=== PATIENT | male | born 1940 | race Caucasian/White ===

== ENCOUNTER 2020-03-01 06:47 | Outpatient (REF) | payer MEDICARE, SELFPAY | END 2020-03-01 06:48 | disposition home or self-care (01) | LOC: HO.LAB 06:47 | PROVIDERS: PCP Internal Medicine; Visit Provider Internal Medicine | DX: Z20.828 Contact with and (suspected) exposure to other viral communicable diseases (principal) | CPT/HCPCS: 36415; 87635 ==

== ENCOUNTER 2021-05-27 10:07 | Outpatient (REF) | payer MEDICARE, SELFPAY ==
[2021-05-27 10:09] LABS: MANUAL DIFF FLAG NO
[2021-05-27 10:38] LABS: Basophils Percent Auto 0.5 % (0-2); Eosinophils Absolute Auto 0.2 X10*3/uL (0.0-0.4); Eosinophils Percent Auto 2.7 % (0-4); Hematocrit 40.4 % (42.0-52.0); Hemoglobin 13.3 g/dl (14.0-18.0); Imm Gran Abs Auto 0.05 X10*3/uL (0.00-0.03); Imm Gran Pct Auto 0.6 % (0.0-0.4); Lymphocytes Absolute Auto 1.9 X10*3/uL (1.2-4.9); Lymphocytes Percent Auto 23.9 % (20-40); Mean Corpuscular HGB Conc 32.9 g/dl (31.0-36.0); Mean Corpuscular Hemoglobin 30.8 pg (27.0-33.0); Mean Corpuscular Volume 93.5 fL (80.0-98.0); Mean Platelet Volume 11.3 fL (9.4-12.4); Monocytes Absolute Auto 0.5 X10*3/uL (0.1-1.2); Monocytes Percent Auto 6.8 % (2-11); Neutrophils Absolute Auto 5.1 x10*3/uL (2.0-8.3); Neutrophils Percent Auto 65.5 % (45-73); Platelet Count 223 X10*3/uL (160-400); Red Blood Count 4.32 X10*6/uL (4.60-5.80); Red Cell Distribution Width 12.8 % (11.0-16.0); White Blood Count 7.8 X10*3/uL (4.8-10.8)
[2021-05-27 10:50] LABS: Alanine Aminotransferase 68 U/L (0-40); Albumin Level 3.7 g/dL (3.5-5.0); Alkaline Phosphatase 91 U/L (39-117); Anion Gap 9 (12-20); Aspartate Amino Transferase 60 U/L (5-37); Blood Urea Nitrogen 14 mg/dL (9-16); Calcium 8.8 mg/dL (8.4-10.2); Carbon Dioxide 28 mmol/L (22-29); Chloride 105 mmol/L (96-108); Cholesterol 134 mg/dL; Estimated Glomerular Filt Rate > 60; Glucose Fasting 202 mg/dL (60-99); HDL Cholesterol 26 mg/dL; LDL Cholesterol Calculated 63 mg/dl; Potassium 4.2 mmol/L (3.3-5.1); Sodium 138 mmol/L (135-145); Total Protein 6.3 g/dL (6.5-8.0); Triglycerides 228 mg/dL
[2021-05-27 10:51] LABS: Estimated Average Glucose 249 mg/dL; Hemoglobin A1c % 10.3 %
[2021-05-27 10:59] LABS: Appearance Urine CLEAR; Color Urine YELLOW; Glucose Urine UA NEG (NEG); Leukocyte Esterase Urine NEG (NEG); Nitrite Urine NEG (NEG); Specific Gravity - Urine >= 1.030 (1.005-1.025); Urine Blood NEG (NEG); Urine Ketones NEG (NEG); Urine Protein NEG (NEG-TRACE)
[2021-05-27 11:00] LABS: Reflex LDLD? No
[2021-05-27 11:09] LABS: PSA,Total (Free>4and<10) 1.18 ng/mL (0.00-4.00)
[2021-05-27 11:29] LABS: Creatinine Urine 150.44 mg/dL; Microalbum/Creatinine Ratio Ur 38.5 ug/mg cr
== END 2021-05-27 10:08 | disposition home or self-care (01) ==
LOC: HO.LNP 10:07
PROVIDERS: Visit Provider Internal Medicine
DX: Z00.00 Encounter for general adult medical examination without abnormal findings (principal); Z12.5 Encounter for screening for malignant neoplasm of prostate; R74.8 Abnormal levels of other serum enzymes; I10 Essential (primary) hypertension; E11.9 Type 2 diabetes mellitus without complications; E78.6 Lipoprotein deficiency; E78.00 Pure hypercholesterolemia, unspecified
CPT/HCPCS: 80053; 80061; 81003; 82043; 83036; 84153; 85025

== ENCOUNTER 2021-11-28 11:15 | Outpatient (REF) | payer MEDICARE, SELFPAY ==
[2021-11-28 11:34] LABS: Estimated Average Glucose 217 mg/dL; Hemoglobin A1c % 9.2 %
[2021-11-28 11:41] LABS: Alanine Aminotransferase 46 U/L (0-40); Albumin Level 3.8 g/dL (3.5-5.0); Alkaline Phosphatase 86 U/L (39-117); Aspartate Amino Transferase 48 U/L (5-37); Bilirubin Direct 0.5 mg/dL (0.0-0.5); Bilirubin Total 1.5 mg/dL (0.0-1.0); Cholesterol 122 mg/dL; HDL Cholesterol 27 mg/dL; LDL Cholesterol Calculated 37 mg/dl; Total Protein 6.3 g/dL (6.5-8.0); Triglycerides 292 mg/dL
[2021-11-28 11:53] LABS: Reflex LDLD? No
== END 2021-11-28 11:16 | disposition home or self-care (01) ==
LOC: HO.LNP 11:15
PROVIDERS: Visit Provider Internal Medicine
DX: E11.9 Type 2 diabetes mellitus without complications (principal); E78.00 Pure hypercholesterolemia, unspecified
CPT/HCPCS: 80061; 80076; 83036

== ENCOUNTER 2021-12-24 11:30 | Outpatient (REF) | payer MEDICARE, SELFPAY ==
[2021-12-24 12:06] LABS: Appearance Urine CLEAR; Color Urine YELLOW; Glucose Urine UA NEG (NEG); Leukocyte Esterase Urine NEG (NEG); Nitrite Urine NEG (NEG); PH 5.5 (5.0-8.0); Specific Gravity - Urine >= 1.030 (1.005-1.025); Urine Blood TRACE (NEG); Urine Ketones NEG (NEG); Urine Protein NEG (NEG-TRACE)
[2021-12-24 12:08] LABS: Creatinine Urine 153.84 mg/dL; Microalbum/Creatinine Ratio Ur 43.5 ug/mg cr
[2021-12-24 12:38] LABS: RBC Urine 0-2 /HPF (0); Squamous Epithelial Cell Urine TRACE /LPF; WBC Urine 0-2 /HPF (0-4)
== END 2021-12-24 11:31 | disposition home or self-care (01) ==
LOC: HO.LNP 11:30
PROVIDERS: Visit Provider Internal Medicine
DX: E11.9 Type 2 diabetes mellitus without complications (principal)
CPT/HCPCS: 81001; 81003; 82043

== ENCOUNTER 2022-05-23 12:09 | Outpatient (REF) | payer MEDICARE, SELFPAY ==
[2022-05-23 12:14] LABS: MANUAL DIFF FLAG NO
[2022-05-23 12:30] LABS: Basophils Percent Auto 0.4 % (0-2); Eosinophils Absolute Auto 0.3 X10*3/uL (0.0-0.4); Eosinophils Percent Auto 2.4 % (0-4); Hematocrit 40.5 % (42.0-52.0); Hemoglobin 13.2 g/dl (14.0-18.0); Imm Gran Abs Auto 0.12 X10*3/uL (0.00-0.03); Imm Gran Pct Auto 1.1 % (0.0-0.4); Lymphocytes Absolute Auto 2.2 X10*3/uL (1.2-4.9); Lymphocytes Percent Auto 20.6 % (20-40); Mean Corpuscular HGB Conc 32.6 g/dl (31.0-36.0); Mean Corpuscular Hemoglobin 30.8 pg (27.0-33.0); Mean Corpuscular Volume 94.4 fL (80.0-98.0); Mean Platelet Volume 10.6 fL (9.4-12.4); Monocytes Absolute Auto 0.7 X10*3/uL (0.1-1.2); Monocytes Percent Auto 6.6 % (2-11); Neutrophils Absolute Auto 7.3 x10*3/uL (2.0-8.3); Neutrophils Percent Auto 68.9 % (45-73); Platelet Count 321 X10*3/uL (160-400); Red Blood Count 4.29 X10*6/uL (4.60-5.80); Red Cell Distribution Width 12.7 % (11.0-16.0); White Blood Count 10.6 X10*3/uL (4.8-10.8)
[2022-05-23 12:34] LABS: Appearance Urine Clear; Color Urine Yellow; Glucose Urine UA Negative (Negative); Leukocyte Esterase Urine Trace (Negative); Nitrite Urine Negative (Negative); Specific Gravity - Urine 1.025 (1.005-1.025); UMIC TRIGGER UA YES; Urine Blood Small (1+) (Negative); Urine Ketones Negative (Negative); Urine Protein 30 (1+) mg/dL (Neg-Trace)
[2022-05-23 12:42] LABS: Estimated Average Glucose 206 mg/dL; Hemoglobin A1c % 8.8 %
[2022-05-23 12:45] LABS: Bacteria Urine None Seen (None Seen); Hyaline Casts Urine 0-2 /LPF (0-2); RBC Urine 0-2 /HPF (0-2); WBC Urine 0-5 /HPF (0-5)
[2022-05-23 13:05] LABS: Alanine Aminotransferase 93 U/L (0-40); Albumin Level 3.7 g/dL (3.5-5.0); Alkaline Phosphatase 121 U/L (39-117); Anion Gap 14 (12-20); Aspartate Amino Transferase 71 U/L (5-37); Bilirubin Total 0.8 mg/dL (0.0-1.0); Blood Urea Nitrogen 12 mg/dL (9-16); Carbon Dioxide 26 mmol/L (22-29); Chloride 103 mmol/L (96-108); Estimated Glomerular Filt Rate > 60; Glucose Random 143 mg/dL (60-115); PSA,Total (Free>4and<10) 1.89 ng/mL (0.00-4.00); Potassium 3.9 mmol/L (3.3-5.1); Sodium 139 mmol/L (135-145); Total Protein 6.6 g/dL (6.5-8.0)
[2022-05-23 13:32] LABS: Microalbum/Creatinine Ratio Ur 70.9 ug/mg cr
== END 2022-05-23 12:10 | disposition home or self-care (01) ==
LOC: HO.LNP 12:09
PROVIDERS: Visit Provider Internal Medicine
DX: Z00.00 Encounter for general adult medical examination without abnormal findings (principal); Z12.5 Encounter for screening for malignant neoplasm of prostate; E11.9 Type 2 diabetes mellitus without complications; I10 Essential (primary) hypertension; E78.6 Lipoprotein deficiency; N40.0 Benign prostatic hyperplasia without lower urinary tract symptoms
CPT/HCPCS: 80053; 81001; 82043; 83036; 84153; 85025

== ENCOUNTER 2022-06-25 07:12 | Outpatient (REF) | payer MEDICARE, OTHER, SELFPAY ==
--- NOTE | ~2022-06-25 | US_ITS ---
EXAMINATION: US ABDOMEN COMPLETE CLINICAL INFORMATION: Hepatomegaly. COMPARISON: Ultrasound retroperitoneal limited (renal only) 08/30/2019 and 09/14/2018. MR abdomen without and with contrast 03/18/2017. TECHNIQUE: Real-time imaging of the abdominal viscera. FINDINGS: PANCREAS: Diffuse increased echogenicity of the pancreas. ABDOMINAL AORTA: Atherosclerotic calcifications of the aorta. INFERIOR VENA CAVA: Visualized portions are normal. LIVER: Liver is enlarged measuring 18.0 cm The liver contour is normal. Diffuse increased echogenicity of the liver parenchyma. No focal hepatic lesion. There is no intrahepatic biliary duct dilatation seen. GALLBLADDER: Focal wall edema measuring 0.3 cm, of unclear significance. The gallbladder is physiologically distended without evidence of stones, sludge, polyps, wall thickening or pericholecystic fluid. COMMON BILE DUCT: Normal in caliber measuring 0.5 cm in diameter. RIGHT KIDNEY: Benign appearing cyst measuring 0.8 cm. Small volume perinephric fluid. No hydronephrosis or renal calculi. The kidney measures 12.1 cm in maximum dimension. LEFT KIDNEY: Small volume perinephric fluid. Benign appearing 6 mm cyst. No hydronephrosis or renal calculi. The kidney measures 11.6 cm in maximum dimension. SPLEEN: Spleen is enlarged. The spleen measures 14.2 cm in maximum dimension. FREE FLUID: None. US/US abdomen complete IMPRESSION: 1. Hepatosplenomegaly. Diffuse increased echogenicity of the liver parenchyma likely reflects hepatic steatosis. 2. Focal gallbladder wall edema measuring 0.3 cm, of unclear significance. 3. Small volume bilateral perinephric fluid.
== END 2022-06-25 07:13 | disposition home or self-care (01) ==
LOC: HO.US 07:12
PROVIDERS: PCP Internal Medicine; Visit Provider Internal Medicine
DX: R16.0 Hepatomegaly, not elsewhere classified (principal)
CPT/HCPCS: 76700

== ENCOUNTER 2022-07-03 10:28 | Outpatient (REF) | payer MEDICARE, SELFPAY ==
[2022-07-03 10:53] LABS: Appearance Urine Clear; Color Urine Dark Yellow; Glucose Urine UA 100 mg/dL (Negative); Leukocyte Esterase Urine Trace (Negative); Nitrite Urine Negative (Negative); PH 5.5 (5.0-9.0); Specific Gravity - Urine >= 1.030 (1.005-1.025); UMIC TRIGGER UACC YES; Urine Blood Negative (Negative); Urine Ketones Negative (Negative); Urine Protein 30 (1+) mg/dL (Neg-Trace)
[2022-07-03 11:03] LABS: Bacteria Urine None Seen (None Seen); Hyaline Casts Urine 0-2 /LPF (0-2); RBC Urine 0-2 /HPF (0-2); Squamous Epithelial Cell Urine 0-2 /HPF (0-2); WBC Urine 0-5 /HPF (0-5)
== END 2022-07-03 10:29 | disposition home or self-care (01) ==
LOC: HO.LNP 10:28
PROVIDERS: Visit Provider Internal Medicine
DX: R31.9 Hematuria, unspecified (principal)
CPT/HCPCS: 81001

== ENCOUNTER 2022-09-04 10:59 | Outpatient (REF) | payer MEDICARE, SELFPAY ==
[2022-09-04 13:08] LABS: Estimated Average Glucose 203 mg/dL; Hemoglobin A1c % 8.7 %
[2022-09-04 13:18] LABS: Alanine Aminotransferase 38 U/L (0-40); Albumin Level 3.9 g/dL (3.5-5.0); Alkaline Phosphatase 81 U/L (39-117); Aspartate Amino Transferase 40 U/L (5-37); Bilirubin Direct 0.7 mg/dL (0.0-0.5); Bilirubin Total 2.9 mg/dL (0.0-1.0); Cholesterol 120 mg/dL; Glucose Fasting 176 mg/dL (60-99); HDL Cholesterol 28 mg/dL; LDL Cholesterol Calculated 51 mg/dl; Total Protein 6.3 g/dL (6.5-8.0); Triglycerides 206 mg/dL
[2022-09-04 13:33] LABS: Reflex LDLD? No
== END 2022-09-04 11:00 | disposition home or self-care (01) ==
LOC: HO.LNP 10:59
PROVIDERS: Visit Provider Internal Medicine
DX: E11.9 Type 2 diabetes mellitus without complications (principal); E78.00 Pure hypercholesterolemia, unspecified
CPT/HCPCS: 80061; 80076; 82947; 83036

== ENCOUNTER 2022-11-07 16:07 | Outpatient (REF) | payer MEDICARE, SELFPAY ==
[2022-11-07 16:33] LABS: Appearance Urine Clear; Color Urine Dark Yellow; Glucose Urine UA 500 mg/dL (Negative); Leukocyte Esterase Urine Negative (Negative); Nitrite Urine Negative (Negative); PH 5.5 (5.0-9.0); Specific Gravity - Urine 1.025 (1.005-1.025); UMIC TRIGGER UACC YES; Urine Blood Negative (Negative); Urine Ketones Trace mg/dL (Negative); Urine Protein 30 (1+) mg/dL (Neg-Trace)
[2022-11-07 16:35] LABS: Bacteria Urine None Seen (None Seen); Hyaline Casts Urine 0-2 /LPF (0-2); RBC Urine 0-2 /HPF (0-2); Squamous Epithelial Cell Urine 0-2 /HPF (0-2); WBC Urine 0-5 /HPF (0-5)
== END 2022-11-07 16:08 | disposition home or self-care (01) ==
LOC: HO.LNP 16:07
PROVIDERS: Visit Provider Internal Medicine
DX: R31.9 Hematuria, unspecified (principal)
CPT/HCPCS: 81001

== ENCOUNTER 2022-12-12 12:21 | Outpatient (REF) | payer MEDICARE, OTHER, SELFPAY ==
[2022-12-12 13:09] LABS: Blood Urea Nitrogen 17 mg/dL (9-16); Estimated Glomerular Filt Rate > 60
== END 2022-12-12 12:22 | disposition home or self-care (01) ==
LOC: HO.LNP 12:21
PROVIDERS: Visit Provider Internal Medicine
DX: I10 Essential (primary) hypertension (principal)
CPT/HCPCS: 82565; 84520

== ENCOUNTER 2022-12-17 08:57 | Outpatient (REF) | payer MEDICARE, OTHER, SELFPAY ==
--- NOTE | ~2022-12-17 | CT_ITS ---
EXAMINATION: CT ABDOMEN AND PELVIS WITHOUT AND WITH CONTRAST CLINICAL INFORMATION: Hematuria. COMPARISON: None available. TECHNIQUE: Multidetector volumetric imaging was performed of the abdomen and pelvis before and after the IV administration of 85 mL of Omnipaque 300 intravenous contrast. Sagittal and coronal reformatted images were obtained on the technologist's workstation. This CT examination was performed using dose optimization techniques as appropriate, variously including the following: *Automated exposure control *Adjustment of mA and/or kV according to patient size (this includes techniques or standardized protocols for targeted exams where dose is matched to indication/reason for exam; i.e. extremities or head) *Use of iterative reconstruction technique DLP: 1305 mGy-cm FINDINGS: LUNG BASES: Heart size is normal. Plate-like atelectasis seen in the left lung base. LIVER, GALLBLADDER, AND BILIARY TREE: The liver is normal in size, shape, and attenuation. Punctate calcifications seen in the right hepatic lobe. No focal hepatic lesion or biliary ductal dilatation is present. The gallbladder is unremarkable with no evidence of radiopaque gallstones, gallbladder wall thickening, or obvious pericholecystic inflammatory changes. PANCREAS: Unremarkable. SPLEEN: There are punctate calcifications in the spleen. Spleen is otherwise normal size and density. ADRENAL GLANDS: Unremarkable. KIDNEYS AND URETERS: The kidneys are normal in size, shape, and attenuation. No hydronephrosis, hydroureter, or calculi seen. There is mild perinephric stranding. Partially opacified bilateral kidney pelvises and segments of both ureters are normal caliber. No intraluminal filling defects see BLADDER: Partially opacified urinary bladder from excreted urine contrast appears unremarkable. No radiopaque bladder calculi or bladder wall thickening seen. GASTROINTESTINAL TRACT: There is scattered stool and gas seen throughout the colon without distention. The small bowel loops and appendix are normal caliber. The stomach is nondistended. No inflammatory process or free fluid seen in abdomen or pelvis. ABDOMINAL WALL: No significant hernia is appreciated. LYMPH NODES: Normal. VASCULAR: Unremarkable. PELVIC VISCERA: There is moderate prostate enlargement with central gland calcification. There is elevation of base of bladder. No free fluid or pelvic or inguinal lymph nodes seen. OSSEOUS STRUCTURES: No aggressive lytic or sclerotic process seen. CT/CT abdomen pelvis wo/w IV con IMPRESSION: No radiopaque urolith, enhancing renal mass or hydroureteronephrosis seen. Bilateral mild perinephric stranding. Moderate prostate enlargement extending into the base of bladder. No bladder wall thickening seen. Fleischner guidelines were followed.
[2022-12-17] MEDS: iohexoL 350 MG/ML 100 ML INFUS..BTL IV (10:03)
== END 2022-12-17 08:58 | disposition home or self-care (01) ==
LOC: HO.CT 08:57
PROVIDERS: PCP Internal Medicine; Visit Provider Internal Medicine
DX: R31.9 Hematuria, unspecified (principal)
CPT/HCPCS: 74178; Q9967

== ENCOUNTER 2023-01-02 10:36 | Outpatient (REF) | payer MEDICARE, OTHER, SELFPAY ==
--- NOTE | ~2023-01-02 | US_ITS ---
EXAMINATION: US ABDOMEN LIMITED CLINICAL INFORMATION: Abnormal gallbladder diagnostic imaging. COMPARISON: CT abdomen and pelvis without with contrast dated 12/17/2022. Ultrasound abdomen complete dated 06/25/2022. Renals only ultrasound dated 08/30/2019. MR abdomen without and with contrast dated 03/18/2017. KUB dated 07/22/2011 and 06/03/2010. TECHNIQUE: Real-time imaging of the right upper quadrant abdominal viscera. FINDINGS: PANCREAS: Normal. LIVER: There is increased liver echogenicity. The liver is normal in size. The liver contour is normal. There is an echogenic linear area likely calcified vessel in the right hepatic lobe. There is no intrahepatic biliary duct dilatation seen. GALLBLADDER: Gallbladder wall thickness measures 0.3-0.5 cm. There is anechoic fluid within the gallbladder wall with mild wall thickening/edema. The gallbladder is physiologically distended without evidence of stones, sludge, polyps, or pericholecystic fluid. COMMON BILE DUCT: Normal in caliber measuring 0.4 cm in diameter. RIGHT KIDNEY: There is a small punctate echogenic stone measuring 0.1 x 0.08 x 0.2 cm upper pole right kidney. No additional stones seen. There is minimal perinephric fluid collection. Echogenic calcification is visualized in the cortex. No hydronephrosis seen. The kidney measures 12.3 cm in maximum dimension. FREE FLUID: None. US/US abdomen limited IMPRESSION: 1. Echogenic linear area in the right hepatic lobe likely calcified vessel. No focal lesion seen. 2. There is mild gallbladder wall thickening with fluid within the gallbladder wall. No echogenic stones or tenderness in the right upper quadrant. 3. There is a punctate echogenic stone in the upper pole right kidney and minimal perinephric fluid collection. No hydronephrosis seen.
== END 2023-01-02 10:37 | disposition home or self-care (01) ==
LOC: HO.US 10:36
PROVIDERS: PCP Internal Medicine; Visit Provider Internal Medicine
DX: R93.2 Abnormal findings on diagnostic imaging of liver and biliary tract (principal)
CPT/HCPCS: 76705

== ENCOUNTER 2023-01-12 08:15 | Outpatient (AMB) | payer MEDICARE, OTHER, SELFPAY ==
--- NOTE | 2023-01-12 03:22 | A.OFFVIS_ITS ---
Intake Intake Visit Reasons: Hematuria (CT 12/17) Intake Note: Patient presents today to established treatment for Hematuria on CT 12/17: Meds- None Allergies to Antibiotic- No Known Allergies Blood Thinner- None Casing Wringer Operator Required: No Accompanied by: Self / Same As Patient Allergies No Known Allergies [No Known Allergies*] Allergy (Unverified 01/12/23 08:19) Medication List - Last Reconciled 01/12/23 by Thomas Araujo MD aspirin (Adult Low Dose Aspirin) 81 mg PO DAILY atorvastatin 10 mg PO DAILY finasteride (Proscar) 5 mg PO DAILY 90 days fluticasone propionate 50 mcg/actuation 1 spray intranasal BID irbesartan-hydrochlorothiazide 150-12.5 mg 1 tab PO DAILY metformin 1,000 mg PO BID metoprolol succinate ER 50 mg PO DAILY montelukast 10 mg PO DAILY sitagliptin phosphate (Januvia) 100 mg PO DAILY HPI HPI Comments History of Present Illness Details Deacon is an 82-year-old male who presents today to the office to establish as a new patient for an evaluation of hematuria. 01/12/2023-- He was sent by his PCP for evaluation of hematuria. He was seen on 11/07/2022 with the complaints of gross hematuria after riding a car for several hours. He was sent for a CT scan. I reviewed the results from 12/17/2022 revealed no renal mass, no renal stone, no hydronephrosis, moderate prostate enlargement with extended into the bladder base. I reviewed the results from 01/12/2023 revealed punctuate echogenic stone in the right upper pole of the kidney.? Review of labs from 04/26/2023 revealed PSA - 1.08, and on 05/27 PSA --1.18, 05/23/22, PSA was 1.89. He had 2 to 3 episodes hematuria since he had the CT scan and the ultrasound. The patient states that he was seen by Dr. Fiore many years ago. He had prostate issues at that time. He was placed on a medication for the prostate which he does not recall the name. He eventually went into urinary retention requiring a Karimi catheter. He eventually had a procedure done for laser to resect some of the prostate tissue, and since then, he has not had any trouble urinating. Patient states that he has casual cigarette use started at the age of 56, a couple cigarettes socially and ?does not inhale?. We discussed the importance of abstaining from cigarette smoking as it could increase the risks of urinary tract cancers. Evaluation today UA-- leukocytes: negative; blood: negative. Plan: Prescribed Finasteride 5 mg. Urine for cytology was ordered. Follow up for office cystoscopy. [facility] Surgical History No pertinent past surgical history Family History Mother No problems noted. Father No problems noted. Social History Alcohol intake: current Alcohol intake frequency: holidays/special occasions only Patient Tobacco Use Status: Never used Tobacco Review of Systems Const All systems reviewed & are unremarkable except as noted in HPI and below Reports no additional complaints Eyes Reports no additional complaints ENT Reports no additional complaints Card Denies dyspnea Resp Denies cough and Denies dyspnea GI Reports no additional complaints Musc Reports no additional complaints Skin/Breast Denies rash and Denies unusual bruising Neuro Reports no additional complaints Psych Reports no additional complaints Endo Reports no additional complaints Sharath/Lymph Reports no additional complaints Aller/Immun Reports no additional complaints Physical Exam Const General: healthy appearing, no acute distress and well developed Orientation/consciousness: patient oriented x3 HEENT Head: Yes normocephalic and Yes atraumatic Eyes Conjunctivae: conjunctivae normal Neck Neck: Yes normal visual inspection Chest Chest palpation & inspection: normal inspection of the chest Resp Effort & Inspection: normal respiratory effort Cardio Rate: regular rate GI Inspection: Yes normal to inspection Palpation (GI): Soft to palpation Skin General skin exam: no rashes or lesions noted Neuro General: patient oriented x3 Extrem General: No pedal edema Psych Appearance: grossly normal Affect: normal affect Results AMB Urinalysis, Automated UA Leukoctes 0 Brissa/uL Last Edit by Naz Coy A on 01/12/23 08:29 UA Nitrite Negative Last Edit by Naz Coy [facility] on 01/12/23 08:29 UA Urobilinogen 0.2 mg/dL Last Edit by Naz Coy A on 01/12/23 08:2 9 UA Protein 30 mg/dL Last Edit by Naz Coy [facility] on 01/12/23 08:29 1+ Naz Coy 01/12/23 08:29 UA pH 6.0 Last Edit by Naz Coy [facility] on 01/12/23 08:29 UA Blood 0 Cezar/uL Last Edit by Naz Coy [facility] on 01/12/23 08:29 UA Specific Mckinney 1.030 Last Edit by Naz Coy [facility] on 01/12/23 08: 29 UA Ketone Negative Last Edit by Naz Coy [facility] on 01/12/23 08:29 UA Bilirubin 0 mg/dL Last Edit by Naz Coy [facility] on 01/12/23 08:29 UA Glucose 0 mg/dL Last Edit by Naz Coy [facility] on 01/12/23 08:29 Results Reviewed Results Reviewed: Laboratory Last Values Urine pH (Auto) 6.0 01/12/23 08:26 Specific Mckinney (Auto) 1.030 01/12/23 08:26 Urine Protein (Auto) 30 mg/dL 01/12/23 08:26 Glucose (UA)(Auto) 0 mg/dL 01/12/23 08:26 Urine Ketones (Auto) Negative 01/12/23 08:26 Urine Blood (Auto) 0 Cezar/uL 01/12/23 08:26 Urine Nitrite (Auto) Negative 01/12/23 08:26 Urine Bilirubin (Auto) 0 mg/dL 01/12/23 08:26 Urine Urobilinogen (Auto) 0.2 mg/dL 01/12/23 08:26 Leukocyte Esterase (Auto) 0 Brissa/uL 01/12/23 08:26 Date of Service: 12/17/22 EXAMINATION: CT ABDOMEN AND PELVIS WITHOUT AND WITH CONTRAST? CLINICAL INFORMATION: Hematuria.? COMPARISON: None available. FINDINGS: LUNG BASES: Heart size is normal. Plate-like atelectasis seen in the left lung base.? LIVER, GALLBLADDER, AND BILIARY TREE: The liver is normal in size, shape, and attenuation. Punctate calcifications seen in the right hepatic lobe. No focal hepatic lesion or biliary ductal dilatation is present. The gallbladder is unremarkable with no evidence of radiopaque gallstones, gallbladder wall thickening, or obvious pericholecystic inflammatory changes.? PANCREAS: Unremarkable.? SPLEEN: There are punctate calcifications in the spleen. Spleen is otherwise normal size and density.? ADRENAL GLANDS: Unremarkable.? KIDNEYS AND URETERS: The kidneys are normal in size, shape, and attenuation. No hydronephrosis, hydroureter, or calculi seen. There is mild perinephric stranding. Partially opacified bilateral kidney pelvises and segments of both ureters are normal caliber. No intraluminal filling defects see BLADDER: Partially opacified urinary bladder from excreted urine contrast appears unremarkable. No radiopaque bladder calculi or bladder wall thickening seen. GASTROINTESTINAL TRACT: There is scattered stool and gas seen throughout the colon without distention. The small bowel loops and appendix are normal caliber. The stomach is nondistended. No inflammatory process or free fluid seen in abdomen or pelvis.? ABDOMINAL WALL: No significant hernia is appreciated.? LYMPH NODES: Normal. VASCULAR: Unremarkable. PELVIC VISCERA: There is moderate prostate enlargement with central gland calcification. There is elevation of base of bladder. No free fluid or pelvic or inguinal lymph nodes seen. OSSEOUS STRUCTURES: No aggressive lytic or sclerotic process seen.? IMPRESSION: No radiopaque urolith, enhancing renal mass or hydroureteronephrosis seen. Bilateral mild perinephric stranding. ? Moderate prostate enlargement extending into the base of bladder. No bladder wall thickening seen.? Date of Service: 01/02/23 EXAMINATION: US ABDOMEN LIMITED CLINICAL INFORMATION: Abnormal gallbladder diagnostic imaging. COMPARISON: CT abdomen and pelvis without with contrast dated 12/17/2022. Ultrasound abdomen complete dated 06/25/2022. Renals only ultrasound dated 08/30/2019. MR abdomen without and with contrast dated 03/18/2017. KUB dated 07/22/2011 and 06/03/2010. FINDINGS: PANCREAS: Normal. LIVER: There is increased liver echogenicity. The liver is normal in size. The liver contour is normal. There is an echogenic linear area likely calcified vessel in the right hepatic lobe. There is no intrahepatic biliary duct dilatation seen. GALLBLADDER: Gallbladder wall thickness measures 0.3-0.5 cm. There is anechoic fluid within the gallbladder wall with mild wall thickening/edema. The gallbladder is physiologically distended without evidence of stones, sludge, polyps, or pericholecystic fluid. COMMON BILE DUCT: Normal in caliber measuring 0.4 cm in diameter. RIGHT KIDNEY: There is a small punctate echogenic stone measuring 0.1 x 0.08 x 0.2 cm upper pole right kidney. No additional stones seen. There is minimal perinephric fluid collection. Echogenic calcification is visualized in the cortex. No hydronephrosis seen. The kidney measures 12.3 cm in maximum dimension. FREE FLUID: None. IMPRESSION: 1. Echogenic linear area in the right hepatic lobe likely calcified vessel. No focal lesion seen. 2. There is mild gallbladder wall thickening with fluid within the gallbladder wall. No echogenic stones or tenderness in the right upper quadrant. 3. There is a punctate echogenic stone in the upper pole right kidney and minimal perinephric fluid collection. No hydronephrosis seen. Assessment & Plan Assessment & Plan (1) Gross hematuria: Code(s): R31.0 - Gross hematuria Plan: Prescribed Finasteride 5 mg. Urine for cytology was ordered. Follow up for office cystoscopy. (2) BPH (benign prostatic hyperplasia): Code(s): N40.0 - Benign prostatic hyperplasia without lower urinary tract symptoms Orders: Orders AMB Urinalysis Automated Today Z13.9 - Encounter for screening, unspecified Medications: New finasteride (Proscar) 5 mg PO DAILY 90 days 90 tabs 3RF C61 - Malignant neoplasm of prostate Patient Instructions: The patient had an opportunity to ask questions regarding treatment plan. All questions were answered. Imaging, Laboratory studies and physical exam results were discussed and reviewed in detail. No major barriers to understanding were identified. The patient expressed understanding and agreement with the above treatment plan.? ? ? The patient is aware they should contact our office by phone for worsening of their current condition or the appearance of new symptoms. Compliance is encouraged with any medications and followup testing that is ordered.? ? ? It is a privilege to be allowed the opportunity to participate in the urologic care of your patient. If you have any questions or concerns regarding treatment for the above conditions please do not hesitate to contact me. The office te fatimah contact is [phone].? ? ? This note is constructed in part using voice recognition software. While every effort has been made to ensure accuracy body team member errors may have been included.? ? ? Yours sincerely,? ? ? Thomas Araujo MD? Coding Level of Care Code New Pt Level 4 (40789) Diagnoses Gross hematuria R31.0 BPH (benign prostatic hyperplasia) N40.0
== END 2023-01-12 08:46 | disposition home or self-care (01) ==
PROVIDERS: PCP Internal Medicine; Visit Provider Urology
DX: R31.0 Gross hematuria (principal); N40.0 Benign prostatic hyperplasia without lower urinary tract symptoms
CPT/HCPCS: 99204

== ENCOUNTER 2023-01-12 08:15 | Outpatient (REF) | payer MEDICARE, SELFPAY ==
[2023-01-12 16:28] LABS: Urine Cytology See Pathology rpt
== END 2023-01-12 08:16 | disposition home or self-care (01) ==
LOC: HO.LAB 08:15
PROVIDERS: PCP Internal Medicine; Visit Provider Urology
DX: R31.0 Gross hematuria (principal); N40.0 Benign prostatic hyperplasia without lower urinary tract symptoms
CPT/HCPCS: 88112; 99202

== ENCOUNTER 2023-02-12 09:56 | Outpatient (AMB) | payer MEDICARE, OTHER, SELFPAY ==
--- NOTE | 2023-02-12 09:58 | A.OFFVIS_ITS ---
Intake Intake Visit Reasons: 1m/cysto Intake Note: Disposible Uro-G Cystoscope Cannula: * Lot: [id number] * Exp: 10/08/2022 Allergies No Known Allergies [No Known Allergies*] Allergy (Unverified 02/12/23 10:33) Medication List - Last Reconciled 02/13/23 by Thomas Araujo MD aspirin (Adult Low Dose Aspirin) 81 mg PO DAILY atorvastatin 10 mg PO DAILY finasteride (Proscar) 5 mg PO DAILY 90 days fluticasone propionate 50 mcg/actuation 1 spray intranasal BID irbesartan-hydrochlorothiazide 150-12.5 mg 1 tab PO DAILY metformin 1,000 mg PO BID metoprolol succinate ER 50 mg PO DAILY montelukast 10 mg PO DAILY sitagliptin phosphate (Januvia) 100 mg PO DAILY HPI HPI Comments History of Present Illness Details Deacon is an 82-year-old male who presents today to the office for a follow-up. 02/12/2023? He is followed today for cystoscopy procedure. He was last seen by me on 01/12/2023 for hematuria. Prescribed Finasteride 5 mg at that time. Urine for cytology was ordered, and He denies any hematuria. He denies any urinary tract symptoms since his last visit. He is on Baby Aspirin. CoMorbidity- Nicotine dependence. I reviewed the urine cytology report results from 01/13/2023 revealed negative for high-grade urothelial carcinoma.? Cystoscopy procedure: Consent was obtained to perform cystoscopy procedure. Cystoscopy findings: Prostate tissue has shown re-growth, and there is some bleeding at the prostate area with instrumentation,and visualization of the bladder is limited. 02/12/2023: Evaluation today--UA- leukoc ytes: negative; blood: negative. Review of charts: Last visit: 01/12/2023-- I reviewed the CT scan results from 12/17/2022 revealed no renal mass, no renal stone, no hydronephrosis, moderate prostate enlargement with extended into the bladder base. I reviewed the Abdomenal results from 01/02/2023 revealed punctuate echogenic stone in the right upper pole of the kidney.? Review of labs from 04/26/2023 revealed PSA - 1.08, and on 05/27 PSA --1.18, 05/23/22, PSA was 1.89. 02/12/2023: Evaluation today?UA? leukocy clovis: negative; blood: negative. 02/12/2023: Plan: Repeat office cystoscopy in 2 months. [facility] Surgical History No pertinent past surgical history Family History Mother No problems noted. Father No problems noted. Social History Alcohol intake: current Alcohol intake frequency: holidays/special occasions only Patient Tobacco Use Status: Never used Tobacco Review of Systems Const All systems reviewed & are unremarkable except as noted in HPI and below Reports no additional complaints Eyes Reports no additional complaints ENT Reports no additional complaints Card Denies dyspnea Resp Denies cough and Denies dyspnea GI Reports no additional complaints Musc Reports no additional complaints Skin/Breast Denies rash and Denies unusual bruising Neuro Reports no additional complaints Psych Reports no additional complaints Endo Reports no additional complaints Sharath/Lymph Reports no additional complaints Aller/Immun Reports no additional complaints Office Procedures Cystoscopy Consent Discussed risk and benefit or proposed procedure with the patient. Information consent for procedure given to the patient. Discussed technical aspects, risks, benefits and alternatives in full. Addressed all of the patient's questions and concerns regarding the procedure. The patient demonstrated knowledge and understanding. They wish to proceed with this procedure. Preparation The patient was prepped in the usual manner. A produce field merchandiser was present and in the room. Genitalia was prepped with betadine solution in a sterile manner. Lidocaine Jelly 2% was placed into the urethra and 16Fr flexible Olympus cystoscope was inserted into the meatus after adequate lubrication. Procedure Time out per protocol performed. Bladder Inspection Bladder Inspection: Urethra: normal Cystoscopy findings: Prostate tissue has shown re-growth, and there is some bleeding at the prostate area with instrumentation and visualization of the bladder is limited. [id number] DISPOSABLE SCOPE URO-G FLEXIBLE SCOPE Procedure code (CPT) selection complete Office Meds lidocaine HCl 2 % mucosal jelly in applicator Performing Provider: Thomas Araujo MD [facility] Administered by: Lulu Villalobos RN on 02/12/23 10:51 Dose Route Admin Location Dispensed Lot Number Expiration Date NDC [employer] 10 mL intra-urethral 20 mL naproxen 500 mg tablet Performing Provider: Thomas Araujo MD [place] Administered by: Lulu Villalobos RN on 02/12/23 10:51 Dose Route Admin Location Dispensed Lot Number Expiration Date NDC [employer] 500 mg PO 1 tab ciprofloxacin HCl 500 mg tablet Performing Provider: Thomas Araujo MD [place] Administered by: Lulu Villalobos RN on 02/12/23 10:51 Dose Route Admin Location Dispensed Lot Number Expiration Date NDC [employer] 500 mg PO 1 tab Results AMB Urinalysis, Automated UA Leukoctes Brissa/uL Last Edit by Yvonne Stevens CMA on 02/12/23 10:42 UA Nitrite Last Edit by Yvonne Stevens CMA on 02/12/23 10:42 UA Urobilinogen 0.2 mg/dL Last Edit by Yvonne Stevens CMA on 02/12/23 10:42 UA Protein 30 mg/dL Last Edit by Yvonne Stevens CMA on 02/12/23 10:42 UA pH 5.0 Last Edit by Yvonne Stevens CMA on 02/12/23 10:42 UA Blood Cezar/uL Last Edit by Yvonne Stevens CMA on 02/12/23 10:42 UA Specific [place] 1.030 Last Edit by Yvonne Stevens CMA on 02/12/23 10:42 UA Ketone Positive Last Edit by Yvonne Stevens CMA on 02/12/23 10:42 UA Bilirubin 1 mg/dL Last Edit by Yvonne Stevens CMA on 02/12/23 10:42 UA Glucose mg/dL Last Edit by Yvonne Stevens CMA on 02/12/23 10:42 Results Reviewed Results Reviewed: Laboratory Last Values Urine pH (Auto) 5.0 02/12/23 10:41 Specific [place] (Auto) 1.030 02/12/23 10:41 Urine Protein (Auto) 30 mg/dL 02/12/23 10:41 Urine Ketones (Auto) Positive 02/12/23 10:41 Urine Bilirubin (Auto) 1 mg/dL 02/12/23 10:41 Urine Urobilinogen (Auto) 0.2 mg/dL 02/12/23 10:41 Diagnosis Urine: Negative for high-grade urothelial carcinoma. COMMENT: Examination of a monolayer preparation slide shows benign urothelial cells, benign squamous cells, and occasional inflammatory cells and red blood cells. Clinical History Gross hematuria Material Received Urine Gross Description 70cc cloudy yellow fluid Assessment & Plan Assessment & Plan (1) Gross hematuria: Code(s): R31.0 - Gross hematuria (2) BPH (benign prostatic hyperplasia): Code(s): N40.0 - Benign prostatic hyperplasia without lower urinary tract symptoms Plan Repeat office cystoscopy in 2 months. Orders: Orders AMB Cystoscopy 02/12/23 N40.0 - Benign prostatic hyperplasia without lower uri nary tract symptoms AMB Urinalysis Automated 02/12/23 R31.0 - Gross hematuria Medications: Refilled finasteride (Proscar) 5 mg PO DAILY 90 tabs 3RF 90 days C61 - Malignant neoplasm of prostate finasteride (Proscar) 5 mg PO DAILY 90 tabs 3RF 90 days C61 - Malignant neoplasm of prostate Patient Instructions: The patient had an opportunity to ask questions regarding treatment plan. All questions were answered. Imaging, Laboratory studies and physical exam results were discussed and reviewed in detail. No major barriers to understanding were identified. The patient expressed understanding and agreement with the above treatment plan.? ? ? The patient is aware they should contact our office by phone for worsening of their current condition or the appearance of new symptoms. Compliance is encouraged with any medications and followup testing that is ordered.? ? ? It is a privilege to be allowed the opportunity to participate in the urologic care of your patient. If you have any questions or concerns regarding treatment for the above conditions please do not hesitate to contact me. The office telephone contact is [phone].? ? ? This note is constructed in part using voice recognition software. While every effort has been made to ensure accuracy speech language pathology assistant errors may have been included.? ? ? Yours sincerely,? ? ? Thomas Araujo MD? ? Coding Level of Care Code Procedure Only Diagnoses Gross hematuria R31.0 BPH (benign prostatic hyperplasia) N40.0 CPT Codes Cystoscopy - CPT: 61384-[id number] ([id number])
== END 2023-02-12 11:25 | disposition home or self-care (01) ==
PROVIDERS: PCP Internal Medicine; Visit Provider Urology
DX: R31.0 Gross hematuria (principal); N40.0 Benign prostatic hyperplasia without lower urinary tract symptoms
CPT/HCPCS: 52000

== ENCOUNTER → 2023-02-12 09:56 | Outpatient (BNVA) | payer MEDICARE, OTHER, SELFPAY | PROVIDERS: PCP Internal Medicine; Visit Provider Urology | DX: R31.0 Gross hematuria (principal); N40.0 Benign prostatic hyperplasia without lower urinary tract symptoms; C61 Malignant neoplasm of prostate | CPT/HCPCS: 52000; 81003 ==

== ENCOUNTER 2023-04-16 09:46 | Outpatient (AMB) | payer MEDICARE, OTHER, SELFPAY ==
--- NOTE | 2023-04-16 09:53 | A.OFFVIS_ITS ---
Intake Intake Visit Reasons: 2 Month cysto Intake Note: Patient presents today for a CYSTOSCOPY Procedure: Meds: None Allergies to Antibiotic: No Known Allergies Blood Thinner: None Urinalysis test cleared for Cysto Disposable Uro-G Cystoscope Cannula: Lot: [id number] Exp: 10/08/2024 High School Science Tutor Required: No Accompanied by: Self / Same As Patient Allergies No Known Allergies [No Known Allergies*] Allergy (Verified 04/16/23 10:13) HPI HPI Comments History of Present Illness Details Deacon is an 82-year-old male who presents today to the office for a follow-up. 04/16/2023-- He is followed today for a repeat cystoscopy procedure. He was sent by his PCP for evaluation of hematuria. He was seen on 11/07/2022 with the complaints of gross hematuria after riding a car for several hours. He was sent for a CT scan. He is on Baby Aspirin. CoMorbidity- Nicotine dependence. Status post laser procedure of the prostate many years ago by Dr. Fiore On 02/12/2023 office cystoscopy was performed, there was bleeding from prostatic urethra secondary to cytoscopy instrumentation and visualization was limited. Patient states that he will be leaving to [place] in third week of July. Evaluation today: --UA--Leukocytes: negative; blood: negative; protein: 1 +. Cystoscopy findings: Irregular growth near the bladder neck on the left side, unable to determine if it is prostatic tissue or bladder tumor. Review of chart: CTAP w/wo IV contrast-12/17/2022 revealed no renal mass, no renal stone, no hydronephrosis, moderate prostate enlargement with extended into the bladder base. Ultrasound-01/12/2023 revealed punctuate echogenic stone in the right upper pole of the kidney. ? Review of labs from 04/26/2023 revealed PSA - 1.08, and on 05/27 PSA --1.18, 05/23/22, PSA was 1.89 . Urine cytology report results from 01/13/2023 revealed negative for high-grade urothelial carcinoma. 02/12/2023: Cystoscopy findings: Prostat e tissue has shown re-growth, and there is some bleeding at the prostate area with instrumentation, and visualization of the bladder is limited. 04/16/2023: Plan: Consent form was obtai danya for the procedure. Patient needs to get medical clearance for the procedure. Cystoscopy, transurethral resection of the bladder tumor, random bladder biopsies as an outpatient was discussed to be scheduled. PFSH Surgical History Hx of cystoscopy No pertinent past surgical history Family History Mother No problems noted. Father No problems noted. Social History Alcohol intake: current Alcohol intake frequency: holidays/special occasions only Patient Tobacco Use Status: Never used Tobacco Review of Systems Const All systems reviewed & are unremarkable except as noted in HPI and below Reports no additional complaints Eyes Reports no additional complaints ENT Reports no additional complaints Card Denies dyspnea Resp Denies cough and Denies dyspnea GI Reports no additional complaints Musc Reports no additional complaints Skin/Breast Denies rash and Denies unusual bruising Neuro Reports no additional complaints Psych Reports no additional complaints Endo Reports no additional complaints Sharath/Lymph Reports no additional complaints Aller/Immun Reports no additional complaints Physical Exam Const General: healthy appearing, no acute distress and well developed Orientation/consciousness: patient oriented x3 HEENT Head: Yes normocephalic and Yes atraumatic Eyes Conjunctivae: conjunctivae normal Neck Neck: Yes normal visual inspection Chest Chest palpation & inspection: normal inspection of the chest Resp Effort & Inspection: normal respiratory effort Cardio Rate: regular rate GI Inspection: Yes normal to inspection Palpation (GI): Soft to palpation Skin General skin exam: no rashes or lesions noted Neuro General: patient oriented x3 Extrem General: No pedal edema Psych Appearance: grossly normal Affect: normal affect Office Procedures Cystoscopy Consent Discussed risk and benefit or proposed procedure with the patient. Information consent for procedure given to the patient. Discussed technical aspects, risks, benefits and alternatives in full. Addressed all of the patient's questions and concerns regarding the procedure. The patient demonstrated knowledge and understanding. They wish to proceed with this procedure. Preparation The patient was prepped in the usual manner. A croze cutter was present and in the room. Genitalia was prepped with betadine solution in a sterile manner. Lidocaine Jelly 2% was placed into the urethra and 16Fr flexible Olympus cystoscope was inserted into the meatus after adequate lubrication. Procedure Time out per protocol performed. Bladder Inspection Bladder Inspection: The bladder was inspected in its entirety with utilization retroflexion displ aying: Tumor(s): see below Trabeculation: mild/mod Mucosal Erthema: N/A Orifices: unable to visualized trigone well Urethra: normal Cystoscopy findings: Irregular growth near the bladder neck on the left side, unable to determine if it is prostatic tissue or bladder tumor. [id number] DISPOSABLE SCOPE URO-G FLEXIBLE SCOPE Procedure code (CPT) selection complete Office Meds lidocaine HCl 2 % mucosal jelly in applicator Performing Provider: Thomas Araujo MD Performing Location[place] [facility] [facility] Administered by: Lulu Bahena RN on 04/16/23 10:25 Dose Route Admin Location Dispensed Lot Number Expiration Date [facility] Document Coordinator 10 mL intra-urethral 20 mL naproxen 500 mg tablet Performing Provider: Thomas Araujo MD Performing Location: [facility] Administered by: Lulu Bahena RN on 04/16/23 10:25 Dose Route Admin Location Dispensed Lot Number Expiration Date ND Document Coordinator 500 mg PO 1 tab ciprofloxacin HCl 500 mg tablet Performing Provider: Thomas Araujo MD Performing Location: [facility] Administered by: Lulu Bahena RN on 04/16/23 10:25 Dose Route Admin Location Dispensed Lot Number Expiration Date ND Document Coordinator 500 mg PO 1 tab Results AMB Urinalysis, Automated UA Leukoctes 0 Brissa/uL Last Edit by CARLOS MANUEL Monteiro on 04/16/23 10:34 UA Nitrite Negative Last Edit by CARLOS MANUEL Monteiro on 04/16/23 10:34 UA Urobilinogen 0.2 mg/dL Last Edit by CARLOS MANUEL Monteiro on 04/16/23 10:3 4 UA Protein 30 mg/dL Last Edit by Naz Coy A on 04/16/23 10:34 1+ Naz Coy 04/16/23 10:34 UA pH 6.0 Last Edit by Naz Zbigniew, RMA on 04/16/23 10:34 UA Blood 0 Cezar/uL Last Edit by Naz Coy A on 04/16/23 10:34 UA Specific [place] 1.030 Last Edit by Naz Coy A on 04/16/23 10: 34 UA Ketone Negative Last Edit by Naz Coy A on 04/16/23 10:34 UA Bilirubin 0 mg/dL Last Edit by Naz Coy A on 04/16/23 10:34 UA Glucose 0 mg/dL Last Edit by Naz Coy A on 04/16/23 10:34 Results Reviewed Results Reviewed: Laboratory Last Values Urine pH (Auto) 6.0 04/16/23 10:14 Specific [place] (Auto) 1.030 04/16/23 10:14 Urine Protein (Auto) 30 mg/dL 04/16/23 10:14 Glucose (UA)(Auto) 0 mg/dL 04/16/23 10:14 Urine Ketones (Auto) Negative 04/16/23 10:14 Urine Blood (Auto) 0 Cezar/uL 04/16/23 10:14 Urine Nitrite (Auto) Negative 04/16/23 10:14 Urine Bilirubin (Auto) 0 mg/dL 04/16/23 10:14 Urine Urobilinogen (Auto) 0.2 mg/dL 04/16/23 10:14 Leukocyte Esterase (Auto) 0 Brissa/uL 04/16/23 10:14 Date of Service: 12/17/22 EXAMINATION: CT ABDOMEN AND PELVIS WITHOUT AND WITH CONTRAST CLINICAL INFORMATION: Hematuria. COMPARISON: None available. FINDINGS: LUNG BASES: Heart size is normal. Plate-like atelectasis seen in the left lung base. LIVER, GALLBLADDER, AND BILIARY TREE: The liver is normal in size, shape, and attenuation. Punctate calcifications seen in the right hepatic lobe. No focal hepatic lesion or biliary ductal dilatation is present. The gallbladder is unremarkable with no evidence of radiopaque gallstones, gallbladder wall thickening, or obvious pericholecystic inflammatory changes. PANCREAS: Unremarkable. SPLEEN: There are punctate calcifications in the spleen. Spleen is otherwise normal size and density. ADRENAL GLANDS: Unremarkable. KIDNEYS AND URETERS: The kidneys are normal in size, shape, and attenuation. No hydronephrosis, hydroureter, or calculi seen. There is mild perinephric stranding. Partially opacified bilateral kidney pelvises and segments of both ureters are normal caliber. No intraluminal filling defects see BLADDER: Partially opacified urinary bladder from excreted urine contrast appears unremarkable. No radiopaque bladder calculi or bladder wall thickening seen. GASTROINTESTINAL TRACT: There is scattered stool and gas seen throughout the colon without distention. The small bowel loops and appendix are normal caliber. The stomach is nondistended. No inflammatory process or free fluid seen in abdomen or pelvis. ABDOMINAL WALL: No significant hernia is appreciated. LYMPH NODES: Normal. VASCULAR: Unremarkable. PELVIC VISCERA: There is moderate prostate enlargement with central gland calcification. There is elevation of base of bladder. No free fluid or pelvic or inguinal lymph nodes seen. OSSEOUS STRUCTURES: No aggressive lytic or sclerotic process seen. IMPRESSION: No radiopaque urolith, enhancing renal mass or hydroureteronephrosis seen. Bilateral mild perinephric stranding. Moderate prostate enlargement extending into the base of bladder. No bladder wall thickening seen. Assessment & Plan Assessment & Plan (1) Gross hematuria: Code(s): R31.0 - Gross hematuria (2) BPH (benign prostatic hyperplasia): Code(s): N40.0 - Benign prostatic hyperplasia without lower urinary tract symptoms Plan Consent form was obtained for the procedures. Patient needs to get medical clearance for the procedures. Cystoscopy, transurethral resection of the bladder tumor, random bladder biopsies as an outpatient was discussed to be scheduled. Orders: Orders AMB Cystoscopy 04/16/23 N40.0 - Benign prostatic hyperplasia without lower urinary tract symptoms, R31.0 - Gross hematuria AMB Urinalysis Automated 04/16/23 Z13.9 - Encounter for screening, unspecified Patient Instructions: The patient had an opportunity to ask questions regarding treatment plan. All questions were answered. Imaging, Laboratory studies and physical exam results were discussed and reviewed in detail. No major barriers to understanding were identified. The patient expressed understanding and agreement with the above treatment plan. The patient is aware they should contact our office by phone for worsening of their current condition or the appearance of new symptoms. Compliance is encouraged with any medications and followup testing that is ordered. It is a privilege to be allowed the opportunity to participate in the urologic care of your patient. If you have any questions or concerns regarding treatment for the above conditions please do not hesitate to contact me. The office telephone contact is [phone]. This note is constructed in part using voice recognition software. While every effort has been made to ensure accuracy informatics pharmacist errors may have been included. Yours sincerely, Thomas Araujo MD Coding Level of Care Code Est Pt Level 4 (48122) Diagnoses Gross hematuria R31.0 BPH (benign prostatic hyperplasia) N40.0 CPT Codes Cystoscopy - CPT: [id number] ([id number])
== END 2023-04-16 11:08 | disposition home or self-care (01) ==
PROVIDERS: PCP Internal Medicine; Visit Provider Urology
DX: N40.0 Benign prostatic hyperplasia without lower urinary tract symptoms (principal); R31.0 Gross hematuria; Z13.9 Encounter for screening, unspecified
CPT/HCPCS: 52000; 99214

== ENCOUNTER → 2023-04-16 09:46 | Outpatient (BNVA) | payer MEDICARE, OTHER, SELFPAY | PROVIDERS: PCP Internal Medicine; Visit Provider Urology | DX: N40.0 Benign prostatic hyperplasia without lower urinary tract symptoms (principal); R31.0 Gross hematuria | CPT/HCPCS: 52000; 81003; 99212 ==

== ENCOUNTER 2023-06-02 07:54 | Day surgery (SDC) | payer MEDICARE, OTHER, SELFPAY ==
[2023-05-27 16:48] VITALS: BMI 30.7
[2023-05-28 16:22] VITALS: BMI 30.7
--- NOTE | 2023-05-29 10:55 | HO.ANESPROP2 ---
Documented by User: Lucille Levine NP 05/29/23 10:55 HPI - Anesthesia Eval Consult details Narrative: 82yo M for TUR Bladder Tumor, possible bladder biopsy Medically cleared Anesthesia Pre-Procedure Meds Is the patient on any of the following meds?: Any other SGL-1 drugs or drugs that delay gastric emptying (Januvia) PMFSH Active Problems Active Problems: All Active Problems (Updated 05/28/23 @ 16:20 by Nichole Oseguera RN) BPH (benign prostatic hyperplasia) (Acute) Gross hematuria (Acute) Past Medical History Medical History Elevated cholesterol Seasonal allergies Diabetes Basal cell carcinoma (BCC) Family History Family History Mother No problems noted. Father No problems noted. Surgical History Surgical History Hx of colonoscopy Hx of cystoscopy Social History Social History (Updated 05/28/23 @ 16:21 by Nichole Oseguera RN) Household Members: None Housing: House Are you a primary palliative care specialist to a significant other at home: No Do you presently have visiting nurse or other home services: No Alcohol intake: current Alcohol intake frequency: holidays/special occasions only Patient Tobacco Use Status: Never used Tobacco Use of substances other than those prescribed or required for medical reasons: No Have you been hit, kicked, punched, or otherwise hurt by someone within the past year? If so, by whom?: No Are you DNR?: No Advance Directives: No Advance Directives Information Provided: Yes Advance Directives on File: No Recently lost weight without trying: No Nutrition Risks: Surgical patient >75years Meds Allergies Allergy/AdvReac Type Severity Reaction Status Date / Time No Known Allergies Allergy Verified 06/02/23 09:05 [No Known Allergies*] Home Medications Medication Instructions Recorded Confirmed Last Taken Type aspirin 81 mg tablet,delayed 81 mg PO DAILY 01/12/23 05/27/23 05/22/23 History release (Adult Low Dose Aspirin) atorvastatin 10 mg tablet 10 mg PO DAILY 01/12/23 05/27/23 Unknown History fluticasone propionate 50 1 spray intranasal BID 01/12/23 05/27/23 Unknown History mcg/actuation nasal spray,suspension irbesartan 150 1 tab PO DAILY 01/12/23 05/27/23 Unknown History mg-hydrochlorothiazide 12.5 mg tablet metformin 1,000 mg tablet 1,000 mg PO BID 01/12/23 05/27/23 Unknown History metoprolol succinate 50 mg 50 mg PO DAILY 01/12/23 05/27/23 06/02/23 History tablet,extended release 24 hr montelukast 10 mg tablet 10 mg PO DAILY 01/12/23 05/27/23 Unknown History sitagliptin phosphate 100 mg 100 mg PO DAILY 01/12/23 05/27/23 05/29/23 History tablet (Januvia) Exam Height,Weight and Vital Signs: Height 5 ft 10 in Weight 97.069 kg Assessment and Plan Assessment Anesthesia Assessment: Chart Reviewed Documented by User: Tere Lima MD 06/02/23 09:32 HPI - Anesthesia Eval Anesthesia Pre-Procedure Meds If Yes to any meds - educate patient: Pt education - increased risk of aspiration PMFSH Past Medical History Medical History Elevated cholesterol Seasonal allergies Diabetes Basal cell carcinoma (BCC) Family History Family History Mother No problems noted. Father No problems noted. Family history of problems with anesthesia: No Surgical History Surgical History Hx of colonoscopy Hx of cystoscopy History of Problems with Anesthesia: No Social History Social History (Updated 05/28/23 @ 16:21 by Nichole Oseguera RN) Household Members: None Housing: House Are you a primary palliative care specialist to a significant other at home: No Do you presently have visiting nurse or other home services: No Alcohol intake: current Alcohol intake frequency: holidays/special occasions only Patient Tobacco Use Status: Never used Tobacco Use of substances other than those prescribed or required for medical reasons: No Have you been hit, kicked, punched, or otherwise hurt by someone within the past year? If so, by whom?: No Are you DNR?: No Advance Directives: No Advance Directives Information Provided: Yes Advance Directives on File: No Recently lost weight without trying: No Nutrition Risks: Surgical patient >75years Meds Allergies Allergy/AdvReac Type Severity Reaction Status Date / Time No Known Allergies Allergy Verified 06/02/23 09:05 [No Known Allergies*] Home Medications Medication Instructions Recorded Confirmed Last Taken Type aspirin 81 mg tablet,delayed 81 mg PO DAILY 01/12/23 05/27/23 05/22/23 History release (Adult Low Dose Aspirin) atorvastatin 10 mg tablet 10 mg PO DAILY 01/12/23 05/27/23 Unknown History fluticasone propionate 50 1 spray intranasal BID 01/12/23 05/27/23 Unknown History mcg/actuation nasal spray,suspension irbesartan 150 1 tab PO DAILY 01/12/23 05/27/23 Unknown History mg-hydrochlorothiazide 12.5 mg tablet metformin 1,000 mg tablet 1,000 mg PO BID 01/12/23 05/27/23 Unknown History metoprolol succinate 50 mg 50 mg PO DAILY 01/12/23 05/27/23 06/02/23 History tablet,extended release 24 hr montelukast 10 mg tablet 10 mg PO DAILY 01/12/23 05/27/23 Unknown History sitagliptin phosphate 100 mg 100 mg PO DAILY 01/12/23 05/27/23 05/29/23 History tablet (Januvia) Exam Airway Mallampati Class: II TM Dist: >3cm Neck ROM: Full Heart: rrr Lungs: cta Assessment and Plan Assessment Anesthesia Assessment: Anesthesia Plan Discussed Final Anesthetic Review Family History of Problems with Anesthesia: No History of Problems with Anesthesia: No NPO: Yes ASA Class: III Final Preanesthetic Review: No Changes in Pt Med Stat, Meds/Allgs Chart Reviewed, Consent Obtained/Reviewed and Anes Risks/Benef Reviewed Patient Risk: Intermediate Procedure Risk: Low Anesthetic Plan Anesthetic Plan: GA (peoria both ears) Disposition: Standard PACU
[2023-06-02] VITALS (10 sets, daily range): BP systolic 113–163; BP diastolic 56–78; PULSE 50–60; RESP 16–18; TEMP 36.2–36.6; O2SAT 97–100; BMI 31.2
[2023-06-02] MEDS: Lactated Ringers 1,000 ML 100 ML IVCONT (08:48)
[2023-06-02 09:06] LABS: Glucose, Whole Blood 188 mg/dL (60-115)
--- NOTE | 2023-06-02 10:05 | MHC.SHP ---
Pre-Procedural Eval Section A Date of Service: 06/02/23 The patient is an INPATIENT: No The History & Physical has been completed within 30 days and I have reviewed it.: Yes Section B Chief Complaint: BPH, gross hematuria Allergies: Allergies Allergy/AdvReac Type Severity Reaction Status Date / Time No Known Allergies Allergy Verified 06/02/23 09:05 [No Known Allergies*] Plan Diagnosis/Plan: Unchanged I have reviewed the history and physical and performed a pertinent physical examination on my patient. No changes have occurred unless specified. Cystoscopy, TUR bladder tumor, possible transurethral biopsies prostate, bladder. Time Spent With Patient Time: Total time managing care of this patient today ____ minutes.
--- NOTE | 2023-06-02 11:32 | W.PM.OPN ---
Operative Note Operative Note Date of Service: 06/02/23 Narrative: PREOP DIAGNOSIS: Gross Hematuria POSTOP DIAGNOSIS: Gross Hematuria, enlarged prostate, Regrowth of prostate issue PROCEDURE: CYSTOSCOPY TRANSURETHRAL RESECTION OF Prostate, FULGURATION Anesthesia: General Surgeon Dr. Sweet Indications: Deacon is an 82-year-old male who was evaluated due to gross hematuria. He has a history of enlarged prostate status post laser of the prostate many years ago. On evaluation for gross hematuria, office cystoscopy noted irregularity of the left side of the bladder neck which was unclear if it was regrowth of prostate tissue versus a bladder tumor. Findings: Regrowth of prostate tissue Details of procedure: The patient was brought into the operating room placed on the OR table in supine position. 2 g of Ancef IV. General anesthesia was administered. The patient was repositioned into lithotomy position, prepped and draped in the usual sterile fashion. Time-out was done per protocol. 2 urojet placed. The 22 [place] cystoscope with 30 degree lens was placed transurethrally into the bladder. The right and left ureteral orifices were visualized. The 70 degree lens was used and evaluation noted irregularity of the left side of the bladder neck. The 24 [place] resectoscope under direct visualization with 30 degree lens was passed transurethrally into the bladder. The loop resectoscope was used to resect the area of concern at the left side of the bladder neck; the tissue was consistent with prostate tissue. Once there was good hemostasis the resectoscope was removed. A [address] catheter with stylet 30cc balloon was passed without difficulty. The patient was brought out of anesthesia and taken to recovery in stable condition. Complications: None Drains: [address] catheter 30 cc balloon
== END 2023-06-02 13:05 | disposition home or self-care (01) ==
PROVIDERS: PCP Internal Medicine; Visit Provider Urology
PROC: 0TBB8ZZ Excision of Bladder, Via Natural or Artificial Opening Endoscopic (ICD-10-PCS; CPT 52630; principal; 2023-06-02 10:20)
DX: R31.0 Gross hematuria (principal); N40.0 Benign prostatic hyperplasia without lower urinary tract symptoms; N42.89 Other specified disorders of prostate; E11.9 Type 2 diabetes mellitus without complications; Z79.84 Long term (current) use of oral hypoglycemic drugs; Z79.82 Long term (current) use of aspirin
CPT/HCPCS: 52630; 82947; 88305; J0690; J1100; J2405; J2704; J3010

== ENCOUNTER → 2023-06-02 07:54 | Outpatient (BNV) | payer MEDICARE, OTHER, SELFPAY | PROVIDERS: PCP Internal Medicine; Visit Provider Urology | DX: N42.89 Other specified disorders of prostate (principal); R31.0 Gross hematuria | CPT/HCPCS: 52630 ==

== ENCOUNTER → 2023-06-05 13:03 | Outpatient (BNVA) | payer MEDICARE, OTHER, SELFPAY | PROVIDERS: PCP Internal Medicine; Visit Provider Urology ==

== ENCOUNTER 2023-06-19 10:18 | Outpatient (AMB) | payer MEDICARE, OTHER, SELFPAY ==
--- NOTE | 2023-06-19 10:19 | A.OFFVIS_ITS ---
Intake Intake Visit Reasons: S/P TURBT w bladder bx (set) Intake Note: Patient presents today for a post op follow-up Meds: Finasteride Allergies to Antibiotic: No Known Allergies Blood Thinner: Aspirin Waist Cutter Required: No Accompanied by: Self / Same As Patient Allergies No Known Allergies [No Known Allergies*] Allergy (Verified 06/19/23 10:20) Medication List - Last Reconciled 06/19/23 by Thomas Araujo MD aspirin (Adult Low Dose Aspirin) 81 mg PO DAILY atorvastatin 10 mg PO DAILY finasteride (Proscar) 5 mg PO DAILY 90 days fluticasone propionate 50 mcg/actuation 1 spray intranasal BID irbesartan-hydrochlorothiazide 150-12.5 mg 1 tab PO DAILY metformin 1,000 mg PO BID metoprolol succinate ER 50 mg PO DAILY montelukast 10 mg PO DAILY sitagliptin phosphate (Januvia) 100 mg PO DAILY HPI HPI Comments History of Present Illness Details 06/19/2023-- Deacon is an 82-year-old mal e who presents today for a telehealth follow-up. Deacon is status post TUR on 06/02/23. I have reviewed with him that the abnormal appearing tissue near the bladder neck came back as benign hyperplasia of the prostate. The patient states he is voiding well since the procedure. Review of chart 04/16/2023-- He is followed today for a repeat cystoscopy procedure. He was sent by his PCP for evaluation of hematuria. He was seen on 11/07/2022 with the complaints of gross hematuria after riding a car for several hours. He was sent for a CT scan. He is on Baby Aspirin. CoMorbidity- Nicotine dependence. Status post laser procedure of the prostate many years ago by Dr. Parson. Evaluation today: --UA--Leukocytes: negative; blood: negative; protein: 1 +. Cystoscopy findings: Irregular growth near the bladder neck on the left side, unable to determine if it is prostatic tissue or bladder tumor. Plan: Consent form was obtained for the procedure. Patient needs to get medical clearance for the procedure. Cystoscopy, transurethral resection of the bladder tumor, random bladder biopsies as an outpatient was discussed to be scheduled. On 02/12/2023 office cystoscopy was performed, there was bleeding from prostatic urethra secondary to cytoscopy instrumentation and visualization was limited. Patient states that he will be leaving to [place] in third week of July. Cystoscopy findings: Prostate tissue has shown re-growth, and there is some bleeding at the prostate area with instrumentation, and visualization of the bladder is limited. Test results-- CTAP w/wo IV contrast-12/17/2022 revealed no renal mass, no renal stone, no hydronephrosis, moderate prostate enlargement with extended into the bladder base. Ultrasound-01/12/2023 revealed punctuate echogenic stone in the right upper pole of the kidney. ? Review of labs from 04/26/2023 revealed PSA - 1.08, and on 05/27 PSA --1.18, 05/23/22, PSA was 1.89 . Urine cytology report results from 01/13/2023 revealed negative for high-grade urothelial carcinoma. 06/19/23--status post TUR 06/02/23 due to a bnormal appearing tissue at the bladder neck --reviewed pathology with patient revealing benign hyperplasia of the prostate no malignant cells identified. Cont Proscar. FU in 6 months PFSH Medical History Elevated cholesterol Seasonal allergies Diabetes Basal cell carcinoma (BCC) Surgical History History of biopsy of bladder Hx of colonoscopy Hx of cystoscopy Family History Mother No problems noted. Father No problems noted. Social History Household Members: None Housing: House Are you a primary caregivers non medical to a significant other at home: No Do you presently have visiting nurse or other home services: No Alcohol intake: current Alcohol intake frequency: holidays/special occasions only Patient Tobacco Use Status: Never used Tobacco Review of Systems Const All systems reviewed & are unremarkable except as noted in HPI and below Reports no additional complaints Eyes Reports no additional complaints ENT Reports no additional complaints Card Denies dyspnea Resp Denies cough and Denies dyspnea GI Reports no additional complaints Musc Reports no additional complaints Skin/Breast Denies rash and Denies unusual bruising Neuro Reports no additional complaints Psych Reports no additional complaints Endo Reports no additional complaints Sharath/Lymph Reports no additional complaints Aller/Immun Reports no additional complaints Results Reviewed Results Reviewed: Collected: 06/02/23 Location: [facility] Received: 06/02/23 Diagnosis Prostate, transurethral resection: 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 Cont Proscar. FU in 6 months Medications: Refilled finasteride (Proscar) 5 mg PO DAILY 90 tabs 3RF 90 days C61 - Malignant neoplasm of prostate Telehealth Telehealth Location of provider rendering services: practice address Location of patient: address on file Patient Identification confirmed using: Name, : Yes Telehealth method: voice only Patient verbally consented to treatment: Yes Patient verbally consented to billing insurance company: Yes Patient informed of any privacy concerns related to visit: Yes Minutes spent on Phone/Video with Pt.: 10 Coding Level of Care Code Global (50815) Diagnoses Gross hematuria R31.0 BPH (benign prostatic hyperplasia) N40.0
== END 2023-06-19 11:09 | disposition home or self-care (01) ==
LOC: HO.HUSH 10:18
PROVIDERS: PCP Internal Medicine; Visit Provider Urology
DX: R31.0 Gross hematuria (principal); N40.0 Benign prostatic hyperplasia without lower urinary tract symptoms
CPT/HCPCS: 99024

== ENCOUNTER → 2023-06-19 10:18 | Outpatient (BNVA) | payer MEDICARE, OTHER, SELFPAY | PROVIDERS: PCP Internal Medicine; Visit Provider Urology | DX: N40.0 Benign prostatic hyperplasia without lower urinary tract symptoms (principal); R31.0 Gross hematuria | CPT/HCPCS: 99212 ==

== ENCOUNTER 2023-06-22 11:05 | Outpatient (REF) | payer MEDICARE, OTHER, SELFPAY ==
[2023-06-22 11:09] LABS: MANUAL DIFF FLAG NO
[2023-06-22 12:21] LABS: Basophils Percent Auto 0.5 % (0-2); Eosinophils Absolute Auto 0.2 X10*3/uL (0.0-0.4); Eosinophils Percent Auto 2.2 % (0-4); Hematocrit 40.7 % (42.0-52.0); Hemoglobin 13.2 g/dl (14.0-18.0); Imm Gran Abs Auto 0.04 X10*3/uL (0.00-0.03); Imm Gran Pct Auto 0.5 % (0.0-0.4); Lymphocytes Absolute Auto 1.8 X10*3/uL (1.2-4.9); Lymphocytes Percent Auto 20.1 % (20-40); Mean Corpuscular HGB Conc 32.4 g/dl (31.0-36.0); Mean Corpuscular Hemoglobin 30.6 pg (27.0-33.0); Mean Corpuscular Volume 94.4 fL (80.0-98.0); Mean Platelet Volume 11.2 fL (9.4-12.4); Monocytes Absolute Auto 0.7 X10*3/uL (0.1-1.2); Monocytes Percent Auto 8.5 % (2-11); Neutrophils Absolute Auto 5.9 x10*3/uL (2.0-8.3); Neutrophils Percent Auto 68.2 % (45-73); Platelet Count 205 X10*3/uL (160-400); Red Blood Count 4.31 X10*6/uL (4.60-5.80); Red Cell Distribution Width 13.2 % (11.0-16.0); White Blood Count 8.7 X10*3/uL (4.8-10.8)
[2023-06-22 12:28] LABS: Appearance Urine Cloudy; Color Urine Yellow; Glucose Urine UA Negative (Negative); Leukocyte Esterase Urine Moderate (2+) (Negative); Nitrite Urine Negative (Negative); UMIC TRIGGER UACC YES; Urine Blood Large (3+) (Negative); Urine Ketones Negative (Negative); Urine Protein 100 (2+) mg/dL (Neg-Trace)
[2023-06-22 12:34] LABS: Bacteria Urine None Seen (None Seen); Hyaline Casts Urine 0-2 /LPF (0-2); RBC Urine >20 /HPF (0-2); Squamous Epithelial Cell Urine 0-2 /HPF (0-2); UACC Culture Trigger YES; WBC Urine >50 /HPF (0-5)
[2023-06-22 12:56] LABS: Alanine Aminotransferase 55 U/L (0-40); Albumin Level 3.9 g/dL (3.5-5.0); Alkaline Phosphatase 70 U/L (39-117); Anion Gap 12 (12-20); Aspartate Amino Transferase 51 U/L (5-37); Blood Urea Nitrogen 13 mg/dL (9-16); Calcium 9.4 mg/dL (8.4-10.2); Carbon Dioxide 29 mmol/L (22-29); Chloride 106 mmol/L (96-108); Cholesterol 123 mg/dL (<200); Estimated Glomerular Filt Rate > 60; Glucose Fasting 171 mg/dL (60-99); HDL Cholesterol 32 mg/dL (>40); LDL Cholesterol Calculated 48 mg/dL (<100); Potassium 4.4 mmol/L (3.3-5.1); Sodium 143 mmol/L (135-145); Total Protein 6.8 g/dL (6.5-8.0); Triglycerides 216 mg/dL (<150)
[2023-06-22 13:07] LABS: PSA,Total (Free>4and<10) 0.61 ng/mL (0.00-4.00)
== END 2023-06-22 11:06 | disposition home or self-care (01) ==
LOC: HO.LNP 11:05
PROVIDERS: Visit Provider Internal Medicine
DX: Z00.00 Encounter for general adult medical examination without abnormal findings (principal); Z12.5 Encounter for screening for malignant neoplasm of prostate; I10 Essential (primary) hypertension; E78.00 Pure hypercholesterolemia, unspecified; N40.0 Benign prostatic hyperplasia without lower urinary tract symptoms
CPT/HCPCS: 80053; 80061; 81001; 84153; 85025; 87086

== ENCOUNTER 2023-06-29 15:32 | Outpatient (REF) | payer MEDICARE, OTHER, SELFPAY ==
[2023-06-29 15:42] LABS: Appearance Urine Clear; Color Urine Yellow; Glucose Urine UA Negative (Negative); Leukocyte Esterase Urine Moderate (2+) (Negative); Nitrite Urine Negative (Negative); PH 5.5 (5.0-9.0); Specific Gravity - Urine 1.025 (1.005-1.025); UMIC TRIGGER UACC YES; Urine Blood Moderate (2+) (Negative); Urine Ketones Negative (Negative); Urine Protein 30 (1+) mg/dL (Neg-Trace)
[2023-06-29 15:43] LABS: Bacteria Urine None Seen (None Seen); Hyaline Casts Urine 0-2 /LPF (0-2); Squamous Epithelial Cell Urine 0-2 /HPF (0-2); UACC Culture Trigger YES; WBC Urine >50 /HPF (0-5)
== END 2023-06-29 15:33 | disposition home or self-care (01) ==
LOC: HO.LNP 15:32
PROVIDERS: Visit Provider Internal Medicine
DX: R82.81 Pyuria (principal)
CPT/HCPCS: 81001; 87086

== ENCOUNTER 2023-08-04 11:00 | Outpatient (REF) | payer MEDICARE, OTHER, SELFPAY ==
[2023-08-04 12:23] LABS: Appearance Urine Clear; Color Urine Yellow; Glucose Urine UA 500 mg/dL (Negative); Leukocyte Esterase Urine Small (1+) (Negative); Nitrite Urine Negative (Negative); PH 5.5 (5.0-9.0); UMIC TRIGGER UA YES; Urine Blood Negative (Negative); Urine Ketones Trace mg/dL (Negative); Urine Protein 30 (1+) mg/dL (Neg-Trace)
[2023-08-04 12:26] LABS: Bacteria Urine None Seen (None Seen); Hyaline Casts Urine 0-2 /LPF (0-2); RBC Urine 0-2 /HPF (0-2); Squamous Epithelial Cell Urine 0-2 /HPF (0-2); WBC Urine 21-50 /HPF (0-5)
== END 2023-08-04 11:01 | disposition home or self-care (01) ==
LOC: HO.LNP 11:00
PROVIDERS: Visit Provider Internal Medicine
DX: E11.9 Type 2 diabetes mellitus without complications (principal)
CPT/HCPCS: 81001

== ENCOUNTER 2023-12-14 09:21 | Outpatient (AMB) | payer MEDICARE, OTHER, SELFPAY ==
--- NOTE | 2023-12-14 09:39 | MHC.OFFVIS ---
Intake Visit Reasons: 6m follow up Intake Note: Patient presents today for a 6m follow-up Meds: Finasteride Allergies to Antibiotic: No Known Allergies Blood Thinner: Aspirin today's PVR: 0ml's Donkey Ride Operator Required: No Accompanied by: Self / Same As Patient Allergies No Known Allergies [No Known Allergies*] Allergy (Verified 12/14/23 09:39) Medication List - Last Reconciled 12/14/23 by Thomas Araujo MD aspirin (Adult Low Dose Aspirin) 81 mg PO DAILY atorvastatin 10 mg PO DAILY finasteride (Proscar) 5 mg PO DAILY 90 days fluticasone propionate 50 mcg/actuation 1 spray intranasal BID irbesartan-hydrochlorothiazide 150-12.5 mg 1 tab PO DAILY metformin 1,000 mg PO BID metoprolol succinate ER 50 mg PO DAILY montelukast 10 mg PO DAILY sitagliptin phosphate (Januvia) 100 mg PO DAILY HPI Comments Details: 12/14/23--Deacon is being followed for BPH he is on Proscar. He is here in follow-up he states he voiding without difficulty, he has not seen blood in the urine. He complains that he has had some redness and itching around the foreskin. On examination: Genitalia testicles normal no scrotal swelling there is redness around the foreskin which can not easily be retracted. Urinalysis negative for leukocytes negative blood. Bladder scan PVR 0 mL. Plan to continue Proscar will treat with Lotrisone cream to the foreskin Review of chart 06/19/2023-- Deacon is an 82-year-old male who presents today for a telehealth follow-up. Deacon is status post TUR on 06/02/23. I have reviewed with him that the abnormal appearing tissue near the bladder neck came back as benign hyperplasia of the prostate. The patient states he is voiding well since the procedure. 04/16/2023--He is followed today for a repeat cystoscopy procedure. He was sent by his PCP for evaluation of hematuria. He was seen on 11/07/2022 with the complaints of gross hematuria after riding a car for several hours. He was sent for a CT scan. He is on Baby Aspirin. CoMorbidity- Nicotine dependence. Status post laser procedure of the prostate many years ago by Dr. Parson. Evaluation today: --UA--Leukocytes: negative; blood: negative; protein: 1 +. Cystoscopy findings: Irregular growth near the bladder neck on the left side, unable to determine if it is prostatic tissue or bladder tumor. Plan: Consent form was obtained for the procedure. Patient needs to get medical clearance for the procedure. Cystoscopy, transurethral resection of the bladder tumor, random bladder biopsies as an outpatient was discussed to be scheduled. On 02/12/2023 office cystoscopy was performed, there was bleeding from prostatic urethra secondary to cytoscopy instrumentation and visualization was limited. Patient states that he will be leaving to [place] in third week of July. Cystoscopy findings: Prostate tissue has shown re-growth, and there is some bleeding at the prostate area with instrumentation, and visualization of the bladder is limited. Test results-- CTAP w/wo IV contrast-12/17/2022 revealed no renal mass, no renal stone, no hydronephrosis, moderate prostate enlargement with extended into the bladder base. Ultrasound-01/12/2023 revealed punctuate echogenic stone in the right upper pole of the kidney. ? Review of labs from 04/26/2023 revealed PSA - 1.08, and on 05/27 PSA --1.18, 05/23/22, PSA was 1.89. Urine cytology report results from 01/13/2023 revealed negative for high-grade urothelial carcinoma. [facility] Medical History Elevated cholesterol Seasonal allergies Diabetes Basal cell carcinoma (BCC) Surgical History History of biopsy of bladder Hx of colonoscopy Hx of cystoscopy Family History Mother No problems noted. Father No problems noted. Social History Household Members: None Housing: House Are you a primary care associate to a significant other at home: No Do you presently have visiting nurse or other home services: No Alcohol intake: current Alcohol intake frequency: holidays/special occasions only Patient Tobacco Use Status: Never used Tobacco Review of Systems Const All systems reviewed & are unremarkable except as noted in HPI and below Reports no additional complaints Eyes Reports no additional complaints ENT Reports no additional complaints Card Reports no additional complaints Resp Reports no additional complaints GI Reports no additional complaints Reports as per HPI Musc Reports no additional complaints Skin/Breast Reports system reviewed and no additional complaints, except as documented Neuro Reports no additional complaints Psych Reports no additional complaints Endo Reports no additional complaints Sharath/Lymph Reports no additional complaints Aller/Immun Reports no additional complaints Results AMB Urinalysis, Automated UA Leukoctes 0 Brissa/uL Last Edit by ASCENCION Espinosa on 12/14/23 09:47 UA Nitrite Negative Last Edit by Tamanna Sood [facility] on 12/14/23 09:47 UA Urobilinogen 0.2 mg/dL Last Edit by Tamanna Sood [facility] on 12/14/23 09:47 UA Protein 15 mg/dL Last Edit by Tamanna Sood [facility] on 12/14/23 09:47 UA pH 5.5 Last Edit by Tamanna Sood [facility] on 12/14/23 09:47 UA Blood 0 Cezar/uL Last Edit by Tamanna Sood [facility] on 12/14/23 09:47 UA Specific [place] 1.020 Last Edit by Tamanna Sood [facility] on 12/14/23 09:47 UA Ketone Positive Last Edit by Tamanna Sood [facility] on 12/14/23 09:47 UA Bilirubin 0 mg/dL Last Edit by Tamanna Sood [facility] on 12/14/23 09:47 UA Glucose 1000 mg/dL Last Edit by Tamanna Sood [facility] on 12/14/23 09:47 Assessment & Plan Assessment & Plan (1) Gross hematuria: Code(s): R31.0 - Gross hematuria Category: Medical (2) BPH (benign prostatic hyperplasia): Code(s): N40.0 - Benign prostatic hyperplasia without lower urinary tract symptoms Category: Medical (3) Candidal balanitis: Code(s): B37.42 - Candidal balanitis Category: Medical Plan Cont Proscar. Lotrisone cream FU in 9 months Orders: Orders AMB Urinalysis Automated Today Z13.9 - Encounter for screening, unspecified Medications: New clotrimazole-betamethasone 1-0.05 % 1 appl topical BID PRN 45 grams 2RF redness and itching Refilled finasteride (Proscar) 5 mg PO DAILY 90 days 90 tabs 3RF C61 - Malignant neoplasm of prostate Coding Level of Care Code Est Pt Level 4 (04609) Diagnoses Gross hematuria R31.0 BPH (benign prostatic hyperplasia) N40.0 Candidal balanitis B37.42
== END 2023-12-14 09:56 | disposition home or self-care (01) ==
PROVIDERS: PCP Internal Medicine; Visit Provider Urology
DX: R31.0 Gross hematuria (principal); N40.0 Benign prostatic hyperplasia without lower urinary tract symptoms; B37.42 Candidal balanitis; Z13.9 Encounter for screening, unspecified
CPT/HCPCS: 99214

== ENCOUNTER → 2023-12-14 09:21 | Outpatient (BNVA) | payer MEDICARE, OTHER, SELFPAY | PROVIDERS: PCP Internal Medicine; Visit Provider Urology | DX: N40.0 Benign prostatic hyperplasia without lower urinary tract symptoms (principal); R31.0 Gross hematuria; B37.42 Candidal balanitis | CPT/HCPCS: 81003; 99212 ==

== ENCOUNTER 2024-01-26 08:23 | Day surgery (SDC) | payer MEDICARE, OTHER, SELFPAY ==
[2024-01-22 14:00] VITALS: BMI 32.2
[2024-01-26 09:02] VITALS: BP 138/53; PULSE 56; RESP 16; TEMP 36.4; O2SAT 99; BMI 30.3
[2024-01-26] MEDS: Lactated Ringers 1,000 ML 80 ML IVCONT (09:19)
--- NOTE | 2024-01-26 09:37 | P.HPSUR_ITS ---
Pre-Procedural Eval Section A - 24 Hr Update-Section A only Date of Service: 01/26/24 Section B - Complete if H&P > 30 days Chief Complaint: Encounter for screening for malignant neoplasm of Details of Present Illness: see H&P no changes Relevant Family History (Specify if Yes): No Relevant Social History: None Present Medications: see Short Stay Collaborative assessment Medical History: No relevant PMH Allergies: Allergies Allergy/AdvReac Type Severity Reaction Status Date / Time No Known Allergies Allergy Verified 12/14/23 09:39 [No Known Allergies*] Review of Systems Sugical H&P ROS: Negative: Constitution, Cardiovascular, Respiratory, Neurol ogical, Psychiatric, Hem-Onc, Allergic/Immunologic, Gastrointestinal, Genitourinary, Musculoskeletal, Integumentary, Endocrine and Eyes/Ears/Nose/Throat Exam Surgical H&P Exam: Normal: HEENT, Normal: Heart, Normal: Lungs, Normal: Extremities, Normal: Abdomen, Normal: Skin and Normal: Neurological Plan Diagnosis/Plan: Unchanged I have reviewed the history and physical and performed a pertinent physical examination on my patient. No changes have occurred unless specified. Time Spent With Patient Time: Total time managing care of this patient today ____ minutes.
--- NOTE | 2024-01-26 10:49 | HO.ANESPROP2 ---
HPI - Anesthesia Eval Consult details Narrative: for colon PMFSH Active Problems Active Problems: All Active Problems Candidal balanitis (Acute) BPH (benign prostatic hyperplasia) (Acute) Gross hematuria (Acute) Past Medical History Medical History Elevated cholesterol Seasonal allergies Diabetes Basal cell carcinoma (BCC) Family History Family History Mother No problems noted. Father No problems noted. Family history of problems with anesthesia: No Surgical History Surgical History History of transurethral resection of bladder tumor (TURBT) History of biopsy of bladder Hx of colonoscopy Hx of cystoscopy History of Problems with Anesthesia: No Social History Social History Household Members: None Housing: House Are you a primary healthcare administrative assistant to a significant other at home: No Do you presently have visiting nurse or other home services: No Alcohol intake: current Alcohol intake frequency: holidays/special occasions only Patient Tobacco Use Status: Former Tobacco user Use of substances other than those prescribed or required for medical reasons: No Have you been hit, kicked, punched, or otherwise hurt by someone within the past year? If so, by whom?: No Are you DNR?: No Advance Directives: No Advance Directives Information Provided: Yes Recently lost weight without trying: No Meds Allergies Allergy/AdvReac Type Severity Reaction Status Date / Time No Known Allergies Allergy Verified 12/14/23 09:39 [No Known Allergies*] Active Medications: Current Medications Lactated Ringer's (Lr) 1,000 mls @ 80 mls/hr IVCONT .[id number] LEOBARDO Last Admin: 01/26/24 09:19 Dose: 80 mls/hr Home Medications ?Medication ?Instructions ?Recorded ?Confirmed ?Last Taken ?Type aspirin 81 mg tablet,delayed 81 mg PO DAILY 01/12/23 01/22/24 05/22/23 History release (Adult Low Dose Aspirin) atorvastatin 10 mg tablet 10 mg PO DAILY 01/12/23 01/22/24 Unknown History fluticasone propionate 50 1 spray intranasal BID 01/12/23 01/22/24 Unknown History mcg/actuation nasal spray,suspension irbesartan 150 1 tab PO DAILY 01/12/23 01/22/24 01/26/24 History mg-hydrochlorothiazide 12.5 mg tablet metformin 1,000 mg tablet 1,000 mg PO BID 01/12/23 01/22/24 Unknown History metoprolol succinate 50 mg 50 mg PO DAILY 01/12/23 01/22/24 06/02/23 History tablet,extended release 24 hr montelukast 10 mg tablet 10 mg PO DAILY 01/12/23 01/22/24 Unknown History sitagliptin phosphate 100 mg 100 mg PO DAILY 01/12/23 01/22/24 05/29/23 History tablet (Januvia) Exam Height,Weight and Vital Signs: Height 5 ft 9.5 in Weight 94.438 kg Last Vital Signs Temp 97.6 F 01/26/24 09:02 Pulse 56 01/26/24 09:02 Resp 16 01/26/24 09:02 BP 138/53 L 01/26/24 09:02 Pulse Ox 99 01/26/24 09:02 O2 Del Method Room Air 01/26/24 09:02 Airway Mallampati Class: II TM Dist: >3cm Neck ROM: Full Heart: rrr Lungs: cta Assessment and Plan Assessment Anesthesia Assessment: Anesthesia Plan Discussed Final Anesthetic Review Family History of Problems with Anesthesia: No History of Problems with Anesthesia: No NPO: Yes ASA Class: III Final Preanesthetic Review: No Changes in Pt Med Stat, Meds/Allgs Chart Reviewed, Consent Obtained/Reviewed and Anes Risks/Benef Reviewed Patient Risk: Intermediate Procedure Risk: Low Anesthetic Plan Anesthetic Plan: MAC: Disposition: Standard PACU
[2024-01-26 11:04] LABS: Glucose, Whole Blood 133 mg/dL (60-115)
[2024-01-26 11:25] VITALS: BP 100/43; PULSE 62; RESP 12; TEMP 36.1; O2SAT 97
[2024-01-26 11:40] VITALS: BP 111/57; PULSE 54; RESP 12; TEMP 36.1; O2SAT 96
--- NOTE | 2024-01-26 13:41 | OP_ITS ---
DATE OF SERVICE: 01/26/2024 SURGEON: Cedrick Justin MD INDICATIONS: Colon cancer screening, personal history of colon polyps, family history of colon cancer. PREOPERATIVE DIAGNOSIS: POSTOPERATIVE DIAGNOSIS: PROCEDURE PERFORMED: Colonoscopy to the cecum with snare polypectomy, biopsy, and cauterization of colon polyps. ESTIMATED BLOOD LOSS: COMPLICATIONS: ANESTHESIA: Monitored anesthesia care. ASSISTANTS: SPECIMENS: DESCRIPTION OF PROCEDURE: A history and physical was performed. The risks and benefits of the procedure were explained to the patient and informed consent was obtained. The patient was placed in the left lateral decubitus position. A digital rectal exam was performed and was found to be normal. The Olympus pediatric video colonoscope was introduced into the rectum and advanced to the cecum. The cecum was identified by transillumination, palpation, and identification of ileocecal valve. Examination was performed and the scope was removed. He tolerated the procedure well and was returned to recovery area in stable condition. FINDINGS: The terminal ileum was not examined. The visualized colonic mucosa was normal. 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 Multiple colonic polyps were present and were removed. Tumor located in the cecum, 2 were located in the right colon, 1 was located at the hepatic flexure, 4 were located in the transverse colon, 2 polyps at 30 cm were cauterized, 1 polyp at 25 cm was removed with the biopsy forceps. The largest polyp in the right colon measured approximately 10 mm and was piecemeal resected. All other polyps were under 10 mm. Retroflexed examination showed moderate-sized internal hemorrhoids. There was some stool coating the mucosa, mainly in the right colon. This was washed and suctioned as best possible. IMPRESSION: Colon polyps. RECOMMENDATION: Follow up the biopsy results. MD CARLEE Tirado/SVETLANA / [id number]
== END 2024-01-26 12:11 | disposition home or self-care (01) ==
PROVIDERS: PCP Internal Medicine; Visit Provider Internal Medicine Gastroenterology
PROC: 0DJD8ZZ Inspection of Lower Intestinal Tract, Via Natural or Artificial Opening Endoscopic (ICD-10-PCS; CPT 45378; principal; 2024-01-26 10:00)
DX: Z12.11 Encounter for screening for malignant neoplasm of colon (principal); Z86.010 Personal history of colon polyps; Z80.0 Family history of malignant neoplasm of digestive organs; D12.0 Benign neoplasm of cecum; D12.2 Benign neoplasm of ascending colon; D12.5 Benign neoplasm of sigmoid colon; K63.5 Polyp of colon; K64.8 Other hemorrhoids; C44.91 Basal cell carcinoma of skin, unspecified; N40.0 Benign prostatic hyperplasia without lower urinary tract symptoms; I10 Essential (primary) hypertension; E78.00 Pure hypercholesterolemia, unspecified; E11.9 Type 2 diabetes mellitus without complications; Z79.51 Long term (current) use of inhaled steroids; Z79.82 Long term (current) use of aspirin; Z79.84 Long term (current) use of oral hypoglycemic drugs; Z79.899 Other long term (current) drug therapy; Z98.890 Other specified postprocedural states; Z87.891 Personal history of nicotine dependence
CPT/HCPCS: 45388; 45385; 45380; 82947; 88305; J2704

== ENCOUNTER → 2024-05-05 07:38 | Outpatient (REF) | payer MEDICARE, OTHER, SELFPAY ==
--- NOTE | 2024-05-05 07:43 | CA_ITS ---
Transthoracic Echocardiogram Patient (Last, First, Middle): Deacon Romo, Gender: Male Date of : 1940 Age: 83 Procedure Date: 05/05/2024 Procedure Type: Transthoracic Echocardiogram Location: OP Height: 177.8 cm Weight: 89.36 kg BSA: 2.07 m2 Heart Rate: bpm BP: 140 / 70 mmHg In Home Sales Representative: JOSE Referring MD: Vini Mendoza MD Lay Out Helper: Elliot Hogue MD Symptoms: [place]UR[place] Study Quality: Adequate ECG Rhythm: Sinus Conclusions: - 1. Normal LV ejection fraction 55-60% with mild LVH with grade 1 diastolic dysfunction 2. Mildly dilated left atrium 3. Mild aortic stenosis 4. Mildly dilated ascending aorta 5. No gross pericardial effusion Findings Left Ventricle Normal left ventricular size and systolic function. There is mildly increased left ventricular wall thickness. The visually estimated ejection fraction is between 55-60%. Spectral Doppler is indicative of an impaired relaxation filling pattern. E/E prime ratio is <8, consistent with normal filling pressures. Evidence suggests grade I (mild) diastolic dysfunction. Right Ventricle Normal right ventricular cavity size and systolic function. Atria The left atrium is mildly dilated. There is lipomatous hypertrophy of the interatrial septum. There is no evidence of interatrial shunt. The right atrium is likely dilated. Aortic Valve There is mild calcification of the aortic valve. There is mild aortic valve stenosis. The peak aortic velocity is 2.00 m/s with a calculated peak gradient of 16 mmHg. The mean gradient is 9 mmHg. The aortic valve area is 1.80 cm2. There is no aortic valve regurgitation. Mitral Valve There is mild anterior and posterior mitral leaflet thickening. There is mild mitral annular calcification. There is trace mitral valve regurgitation. There is no mitral valve stenosis. Pulmonic Valve The pulmonic valve is likely normal. There is trace pulmonic valve regurgitation. Tricuspid Valve Likely normal tricuspid valve structure and function. Tricuspid regurgitation envelope is inadequate for calculation of right ventricular systolic pressure. Normal right atrial pressure. Great Vessels The pulmonary artery was not well visualized. There is mild dilatation of the ascending aorta measuring 3.70 cm. Small plaque is seen in the sino tubular ridge and ascending aorta. Venous The inferior vena cava is normal in size and collapses greater than 50% with inspiration. Pericardium/Pleural There is no evidence of pericardial effusion. Prior Study Comparison no previous study in the last 5 years for comparison Measurements 2D Linear Measurements IVSd: 1.39 0.6-0.9/0.6-1.0 cm LVIDd: 4.73 3.9-5.3/4.2-5.9 cm LVIDd Index: 2.29 2.4-3.2/2.2-3.1 cm/m2 LVIDs: 2.25 2.0-3.6 cm LVPWd: 1.16 0.7-1.1 cm LA Diam: 4.60 2.7-3.8/3.0-4.0 cm LAIDs Index: 2.22 1.5-2.3 cm/m2 LV Mass: 291.20 67-162/88-224 g LV Mass Index: 140.68 43-95/49-115 g/m2 LVOT Diam: 2.10 3.0+(-)1.3 cm 2D Systolic Function EF 4C: 60.90 >55% EF 2C: 56.30 >55% EF BiP: 58.30 >55% Mitral Valve MV Pk E: 0.48 MV PK A: 0.65 MV Decel Time: 402.00 E/A: 0.70 E'Lateral: 6.96 E'Medial: 4.79 E/E' Med: 10.00 E/E' Lat: 6.90 PHT: 118.00 MVA PHT: 1.86 Decel Quay: 1.20 Aortic Valve AoV Pk Addy: 2.00 AoV Mn Addy: 1.40 AoV VTI: 0.45 AoV Pk Grad: 16.00 Aov Mn Grad: 9.00 TUNDE Cont.VTI: 1.80 LVOT LVOT Pk Addy: 1.03 LVOT Mn Addy: 0.65 LVOT VTI: 0.23 LVOT Pk Grad: 4.00 LVOT Mn Grad: 2.00 LVOT Diam: 2.10 LVOT Area: 3.46 Diastolic Function MV Pk E: 0.48 MV Pk A: 0.65 E/A: 0.70 E'Medial: 4.79 E/E' Med: 10.00 E' Laterial: 6.96 E/E' Lat: 6.90 Right Ventricle TAPSE (mm): 23.80 TVS' Addy: 12.40 Tricuspid Valve RA Press: 3.00 Great Vessels Aorta Sinus of Valsalva: 3.43 2.0-3.[address] Ridge: 2.73 1.7-3.4 cm Ao Asc: 3.70 2.1-3.4 cm Updated in Other Vendor System with Status of Final Elliot Hogue MD electronically signed on 05/05/2024 2:21:26 PM with status of Final
--- OUTSIDE RECORDS SUMMARY | 2024-05-10 23:26 | XMS_ITS ---
Author Organization [facility] Address [address] [place] [address] Care Team Providers Care Spray Drier Operator Helper Name Role Phone Vini Mendoza MD Primary Care Provider Jennifer Justin Jr, Cedrick Blank REASON FOR VISIT pathology Encounters Encounter Location Date Provider Diagnosis [facility] [address] [place] [address] 01/29/2024 Cedrick Justin Jr PLAN OF TREATMENT Next Appt Details Provider Name:Cedrick licona Jr, 01/25/2025 09:20:00 AM, [address], [address], [place], [address],
--- OUTSIDE RECORDS SUMMARY | 2024-05-10 23:26 | XMS_ITS | Patient Health Record ---
Author Organization [facility] Address [address] [place] [address] Care Team Providers Care Sandblast Operator Name Role Phone Kelly RIGGS, Vini Primary Care Provider Cedrick Becerra Jr Unavailable [phone] ALLERGIES Allergen (clinical drug ingredient) Drug/Non Drug Allergy documented on EMR Reaction Allergy Type Onset Date Status seasonal (uncoded) Unknown Allergy A ctive RESULTS Component Value Reference Range Notes Glucose, Whole Blood Reviewed date:01/27/2024 04:42:27 PM Interpretation: Performing Lab:[facility], [address] [place] [id number] Notes/Report: Glucose, Whole Blood 133 60-115 mg/dL METER # : [id number] Pathology Reviewed date:01/29/2024 02:29:14 PM Interpretation: Performing Lab:[facility], [address] [place] [phone] Notes/Report: REASON FOR REFERRAL No Information MEDICATIONS Medication SIG (Take, Route, Frequency, Duration) Notes Start Date End Date Status Valsartan-hydroCHLOROthiazi de 320-12.5 MG 1/2 tablet Orally Once a day Unknown MiraLax (colon prep) 17 GM/SCOOP mixed with Gatorade or Crystal Light Orally begin at 5:00 p.m. the day before the procedure for 1 day 12/09/2023 Active Singulair 10 MG 1 tablet Orally Once a day Unknown Metoprolol Succinate ER 50 MG 1 tablet Orally Once a day Unknown Atorvastatin Calcium 20mg 1/2 tablet Ora lly Once a day Unknown metFORMIN HCl 500 MG 2 TABLETS Orally Tw ice a day Unknown Irbesartan 75 MG 1 tablet Orally Once a day for 30 day(s) Unknown Flonase 50 MCG/ACT 1 spray in each nost ril Nasally PRN Unknown Aspir-Low 81 MG 1 tablet Orally Once a day for 30 day(s) Unknown IMMUNIZATIONS Vaccine Route Administration Date Status Comme nts Flu vaccine no Preserv 3 and > Unknown 06/01/2015 Admin istered Influenza Unknown 04/15/2018 Administered Influenza Unknown 03/18/2022 Administered Influenza Unknown 12/09/2023 Refused SOCIAL HISTORY Sex Assigned At : Social History Observation Description Sex Assigned At Unknown PROBLEMS Problem Type ICD Code Onset Dates Problem Status W/U Status Risk SNOMED Code Notes Problem Colon cancer screening (Z12.11) Active confirmed 619684169 Problem Personal history of colonic polyps (Z86.010) Active confirmed 880842655 Problem Long-term use of aspirin therapy (Z79.82) Active confirmed 490511552 Problem Long-term current use of high risk medication other than anticoagulant (Z79.899) Active confirmed 860509231 Problem FH: colon cancer (Z80.0) Active confirmed 175475709 Problem Hypertension, unspecified type (I10) Active confirmed 23203084 VITAL SIGNS Temperature 97.7 degrees Fahrenheit 12/09/2023 Blood pressure diastolic 00 mm Hg 12/09/2023 Height 69.5 in 12/09/2023 Blood pressure systolic 000 mm Hg 12/09/2023 Weight 221 lb 6 oz lbs 12/09/2023 BMI 32.22 kg/m2 12/09/2023 Encounters Encounter Location Date Provider Diagnosis [facility] [address] [place] [phone] 01/26/2024 Cedrick Justin Jr Colon cancer screening Z12.11 ; Family history of colon cancer Z80.0 and Colon polyps K63.5 [facility] [address] [place] [address] 09/02/2023 Cedrick Jusitn Jr [facility] [address] [place] [phone] 12/09/2023 Cedrick Justin Jr Colon cancer screening Z12.11 ; Long-term use of aspirin therapy Z79.82 and FH: colon cancer Z80.0 [facility] [address] [place] [phone] 08/31/2023 Cedrick Justin Jr [facility] [address] [place] [address] 01/29/2024 Cedrick Justin Jr ASSESSMENTS Encounter Date Diagnosis Assessment Notes Treatment Notes Treatment Clinical Notes 01/26/2024 Colon cancer screening (ICD-10 - Z12.11) 01/26/2024 Family history of colon cancer (ICD-10 - Z80.0) 12/09/2023 Colon cancer screening (ICD-10 - Z12.11) Digestive diseases material was printed 12/09/2023 Long-term use of aspirin therapy (ICD-10 - Z79.82) 01/26/2024 Colon polyps (ICD-10 - K63.5) 12/09/2023 FH: colon cancer (ICD-10 - Z80.0) PLAN OF TREATMENT Future Test Test Name Order Date COLONOSCOPY 11/22/2015 COLONOSCOPY 01/26/2019 COLONOSCOPY 12/09/2023 Next Appt Details Provider Name:Cedrick licona Jr, 01/25/2025 09:20:00 AM, [address], [address], [place], [address], Insurance Providers Payer Name Payer Address Payer Phone Subscriber Number Group Number Insured Name Patient Relationship to Insured Coverage Start Date Coverage End Date [facility] [address] [place], [place] [id number] TOMEKA OLIVIER Self - patient is the insured [employer] [address] [place] [id number] TOMEKA OLIVIER Self - patient is the insured MEDICAL (GENERAL) HISTORY Medical History History ICD Code colonoscopy 02/11/19, negativ e for adenomas. Five-year followup optional based on age. hypertension basal cell carcinoma BPH elevated cholesterol type II diabetes hearing loss Surgical History Surgery Date(Month/Year) removal of basal cell carcinomas deviated septum repair cataract-lens implants both eyes lasik 1993 prostate surgery to enlarge the prostate Ear surgery
--- OUTSIDE RECORDS SUMMARY | 2024-05-10 23:26 | XMS_ITS | Continuity of Care Document ---
Author Name [facility] Organization [facility] Care Team Providers Care Certified Professional Ergonomist Name Role Phone [facility] Unavailable Unavailable Problems Combined list of problems from Department of [facility] and Veterans [facility] facilities. It does not include entries that were removed or entered in error. Problem Status Onset Date Problem Type Date of Resolution Comments Source Benign essential hypertension [facility] [place] [facility] Benign Prostatic Hypertrophy Without Outflow Obstruction ([facility] [id number]) Active Condition [facility] [place] [facility] Diabetes Mellitus Type 2 ([facility] [id number]) Active Condition [facility] [place] [facility] Hyperlipidemia ([facility] [id number]) Active Condition [facility] [place] [facility] Diagnosis: ICD-10-CM Z46.1 Encounter for fitting and adjustment of hearing aid Active Diagnosis [facility] [place] [facility] Diagnosis: ICD-10-CM I10 Essential (primary) hypertension Active Diagnosis [facility] [place] [facility] Diagnosis: ICD-10-CM 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 Active Diagnosis [facility] Diagnosis: ICD-10-CM Z02.89 Encounter for other administrative examinations Active Diagnosis [facility] [place] [facility] Diagnosis: ICD-10-CM H90.3 Sensorineural hearing loss, bilateral Active Diagnosis [facility] [facility] Diagnosis: ICD-10-CM H90.5 Unspecified sensorineural hearing loss Active Diagnosis [facility] Medications Combined list of outpatient medications from Department of Defense and Veterans [facility] facilities.Medications provided include 1) outpatient medications from the last 15 months, and 2) patient-reported medications. Medication Details Route Status Patient Instructions Prescription Expires Prescription Number Last Dispense Date Ordering Provider Order Date Order Qty Source ASPIRIN 81MG TAB,CHEWABL E CHEW ONE TABLET BY MOUTH ONCE DAILY ORAL ACTIVE RA NAIF ROLAND 2018 [facility] [place] [facility] ATORVASTATI N CA 20MG TAB TAKE ONE-HALF TABLET BY MOUTH EVERY EVENING ORAL ACTIVE RA NAIF ROLAND 2018 [facility] FINASTERIDE (FINASTERID E), 5MG, TABLET, ORAL, AUROBINDO PHARM, 90 ea. BOTTLE Active [id number] 4 2023 90 Pharmac y Data Transac tion Service Facilit y FINASTERIDE (FINASTERID E), 5MG, TABLET, ORAL, AUROBINDO PHARM, 90 ea. BOTTLE Active [id number] 4 2023 90 Pharmac y Data Transac tion Service Facilit y FINASTERIDE 1MG TAB TAKE ONE TABLET BY MOUTH ONCE DAILY ORAL ACTIVE MOHAMUD, MISSY VIJAYA 2023 [facility] FLUTICASONE PROPIONATE (FLUTICASON E PROPIONATE) , 50MCG, SPRAY SUSP, NASAL, APOTEX JEANINE, 16 g AER W/ADAP Cancele d [id number] : 2023 0 Pharmac y Data Transac tion Service Facilit y FLUTICASONE PROPIONATE (FLUTICASON E PROPIONATE) , 50MCG, SPRAY SUSP, NASAL, APOTEX JEANINE, 16 g AER W/ADAP Active [id number] 4 2023 16 Pharmac y Data Transac tion Service Facilit y HYDROCHLORO THIAZIDE 12.5MG/IRBE SARTAN 150MG TAB TAKE ONE TABLET BY MOUTH ONCE DAILY ORAL ACTIVE RA NAIF ROLAND 2018 [facility] HYDROCHLORO THIAZIDE 12.5MG/IRBE SARTAN 150MG TAB TAKE ONE TABLET BY MOUTH ONCE DAILY ORAL ACTIVE MOHAMUD, MISSY VIJAYA 2023 [facility] JANUVIA (SITAGLIPTI N PHOSPHATE), 100MG, TABLET, ORAL, [employer] 30 ea. BOTTLE Active [id number] 4 2023 90 Pharmac y Data Transac tion Service Facilit y LORATADINE 10MG TAB TAKE ONE TABLET BY MOUTH ONCE DAILY ORAL ACTIVE MOHAMUD, MISSY VIJAYA 2023 [facility] METFORMIN HCL (metformin HCl), 1000 MG, TABLET, ORAL, GRANULES PHARMA, 1000 ea. BOTTLE Active [id number] 4 2023 180 Pharmac y Data Transac tion Service Facilit y METFORMIN HCL (metformin HCl), 1000 MG, TABLET, ORAL, GRANULES PHARMA, 1000 ea. BOTTLE Active [id number] 4 2023 180 Pharmac y Data Transac tion Service Facilit y METFORMIN HCL 1000MG TAB TAKE ONE TABLET BY MOUTH TWICE DAILY ORAL ACTIVE RA NAIF ROLAND 2018 [facility] METOPROLOL SUCCINATE (METOPROLOL SUCCINATE), 50 MG, TAB ER 24H, ORAL, 'S LAB, 500 ea. BOTTLE Active [id number] 4 2023 90 Pharmac y Data Transac tion Service Facilit y METOPROLOL SUCCINATE (metoprolol succinate), 50 MG, TAB ER 24H, ORAL, ORYZA PHARMACEU, 500 ea. BOTTLE Active [id number] 4 2023 90 Pharmac y Data Transac tion Service Facilit y METOPROLOL SUCCINATE 50MG TAB,SA TAKE ONE TABLET BY MOUTH ONCE DAILY ORAL ACTIVE RA NAIF ROLAND 2018 [facility] MONTELUKAST NA 10MG TAB TAKE ONE TABLET BY MOUTH ONCE DAILY ORAL ACTIVE RA NAIF ROLAND 2018 [facility] MONTELUKAST SODIUM (MONTELUKAS T SODIUM), 10 MG, TABLET, ORAL, TORRENT PHARMAC, 90 ea. BOTTLE Active [id number] 4 2023 90 Pharmac y Data Transac tion Service Facilit y MONTELUKAST SODIUM (montelukas t sodium), 10 MG, TABLET, ORAL, UNICHEM PHARMAC, 90 ea. BOTTLE Active [id number] 4 2023 90 Pharmac y Data Transac tion Service Facilit y Immunizations Combined list of available immunizations from the Department of Defense and Veterans Affairs facilities. Immunization Series Date Given Administered By Site Reaction Lot Number CVX Code Drug Applications Consultant Status Comments Source INFLUENZA, UNSPECIFIED FORMULATION 2022 88 complet ed [facility] [place] [facility] [facility] INFLUENZA, UNSPECIFIED FORMULATION 2021 88 complet ed [facility] [place] [facility] influenza, high-dose, quadrivalent 2020 [place], () Not Given influenza , high-dose , quadrival ent DoD COVID-19 (MODERNA), MRNA, LNP-S, PF, 100 MCG/0.5 ML DOSE 2 2020 207 complet ed MOD; [id number]; 1 [facility] [place] [facility] COVID-19 (MODERNA), MRNA, LNP-S, PF, 100 MCG/0.5 ML DOSE 1 2020 207 complet ed MOD; [id number]; 1 [facility] [place] [facility] INFLUENZA, UNSPECIFIED FORMULATION 2019 88 complet ed [facility] [place] [facility] [facility] INFLUENZA, SEASONAL, INJECTABLE 2018 141 complet ed [facility] [place] [facility] zoster recombinant 2017 [place], () Not Given zoster recombina nt DoD Influenza, high dose seasonal 2014 [place], () Not Given Influenza , high dose seasonal DoD Vital Signs Combined list of inpatient and outpatient Vital Signs from Department of Defense and Veterans Affairs, ranging from 12 months to all on record, depending upon the facility. Vital Sign Value Date Comments Source SYSTOLIC BLOOD PRESSURE 146 11/27/2023 08:49:19 [facility] [place] [facility] DIASTOLIC BLOOD PRESSURE 74 11/27/2023 08:49:19 [facility] [place] [facility] PULSE OXIMETRY 95 11/27/2023 08:49:19 [facility] [place] [facility] PAIN 0 11/27/2023 08:49:19 [facility] [place] [facility] TEMPERATURE 98.2 11/27/2023 08:49:19 [facility] [place] [facility] PULSE 61 11/27/2023 08:49:19 [facility] [place] [facility] RESPIRATION 16 11/27/2023 08:49:19 [facility] [place] [facility] Encounters Combined list of: 1) Encounters from Department of Veterans Affairs facilities going back up to thelast 18 months. 2) Encounters from the Department of Defense facilities going back up to 280 months. Location Location Details Encounter Type Encounter Number Reason For Visit Attending Provider ADM Date DC Date Status Disposition Source [place] [facility] [place] [facility] OFFICE O/P EST MOD 30-39 MIN [id number] Diagnos is: ICD-10- CM I10 Essenti al (primar y) hyperte nsion<b r/> MOHAMUD,L EDGARD VIJAYA 11/26 [place] [facility] [place] [place] [facility] [place] [facility] Outpatient Encounter [id number] 11/26 [place] [facility] [place] [facility] OFFICE O/P EST LOW 20-29 MIN [id number] Diagnos is: ICD-10- CM H90.5 Unspeci fied sensori neural hearing loss
DO EVIE GROSS 12/10 [facility] HEARING AID EXAM BOTH EARS [id number] Diagnos is: ICD-10- CM H90.3 Sensori neural hearing loss, bilater al
Vanessa HERNANDEZ 12/29 [facility] Outpatient Encounter [id number] 01/02 [facility] CONFORMITY EVALUATION [id number] Diagnos is: ICD-10- CM Z46.1 Encount er for fitting and adjustm ent of hearing aid<br/ > ALEC SANCHEZ 01/28 [facility] [place] [facility] Outpatient Encounter [id number] 03/01 [place] [facility] [place] [facility] [place] [facility] Outpatient Encounter [id number] Diagnos is: ICD-10- CM Z02.89 Encount er for other adminis trative examina tions<b r/> LAMBERTTigreMAO LZUJINA Vanessa 03/19 [facility] [place] [facility] [facility] [place] [facility] Outpatient Encounter [id number] Diagnos is: ICD-10- CM Z02.89 Encount er for other adminis trative examina tions<b r/> BONCZEK,LA UREN L 03/25 [facility] [place] [facility] [place] [facility] HEARING AID FITTING/CH ECKING [id number] Diagnos is: ICD-10- CM Z46.1 Encount er for fitting and adjustm ent of hearing aid<br/ > GLENN,LA UREN L 03/25 [facility] [place] [facility]-29 MIN [id number] Diagnos is: ICD-10- CM H74.91 Unspeci fied disorde r of right middle ear and mastoid
DO EVIE GROSS 04/01 [place] [facility] [place] [facility] HEARING AID REPAIR/MOD IFYING [id number] Diagnos is: ICD-10- CM Z46.1 Encount er for fitting and adjustm ent of hearing aid<br/ > BONCZEK,LA UREN L 04/27 [facility] [place] [facility] [facility] [place] [facility] HEARING AID FITTING/CH ECKING [id number] Diagnos is: ICD-10- CM Z46.1 Encount er for fitting and adjustm ent of hearing aid<br/ > RIBPJ FAIRCHILD I 06/03 [facility] [place] [facility] [facility] [place] [facility] Outpatient Encounter [id number] 07/02 [facility] [place] [facility] [facility] [place] En[facility] [id number] 10/08 [facility] [place] [facility] [facility] [place] [facility] OFF[facility] O/P EST MOD 30 MIN [id number] Diagnos is: ICD-10- CM I10 Essenti al (primar y) hyperte nsion<b r/> MOHAMUD,L EDGARD VIJAYA 11/26 [facility] [place] [facility] [facility] [place] En[facility] [id number] 11/26 [facility] [place] [facility] [place] [facility] HEARING AID FITTING/CH ECKING [id number] Diagnos is: ICD-10- CM Z46.1 Encount er for fitting and adjustm ent of hearing aid<br/ > Gris DEL ROSARIO HAILEE E 12/09 [facility] [place] [facility] Social History Combined list of available smoking, tobacco, and other social history from Department of Defense and Veterans Affairs facilities. Social History Type Response Date Comment Sourc e Tobacco smoking status MEIS VA-TOBACCO FORMER USER 11/27/2023 [facility] [place] [facility] History of tobacco use VA-TOBACCO QUIT 15 YRS OR MORE 11/27/2023 [facility] [place] [facility] History of tobacco use VA-TOBACCO NEVER USED 11/26/2022 [facility] [place] [facility] History of tobacco use VA-TOBACCO NEVER USED 11/26/2021 [facility] [place] [facility] History of tobacco use VA-TOBACCO NEVER USED 05/01/2020 [facility] [place] [facility] History of tobacco use VA-TOBACCO QUIT 15 YRS OR MORE 04/19/2019 [facility] [place] [facility] This section is an empty social history section. DoD
--- OUTSIDE RECORDS SUMMARY | 2024-05-10 23:26 | XMS_ITS ---
Author Organization [facility] Address [address] [place] [address] Care Team Providers Care Tool Planer Set Up Operator Name Role Phone Vini Mendoza MD Primary Care Provider Cedrick Becerra Jr Unavailable ALLERGIES Allergen (clinical drug ingredient) Drug/Non Drug Allergy documented on EMR Reaction Allergy Type Onset Date Status seasonal (uncoded) Unknown Allergy A ctive REASON FOR VISIT Patient presents today for a colon screening MEDICATIONS Medication SIG (Take, Route, Frequency, Duration) Notes Start Date End Date Status Valsartan-hydroCHLOROthiazi de 320-12.5 MG 1/2 tablet Orally Once a day Unknown MiraLax (colon prep) 17 GM/SCOOP mixed with Gatorade or Crystal Light Orally begin at 5:00 p.m. the day before the procedure for 1 day 12/09/2023 Active Atorvastatin Calcium 20mg 1/2 tablet Ora lly Once a day Unknown Irbesartan 75 MG 1 tablet Orally Once a day for 30 day(s) Unknown Aspir-Low 81 MG 1 tablet Orally Once a day for 30 day(s) Unknown Singulair 10 MG 1 tablet Orally Once a day Unknown Metoprolol Succinate ER 50 MG 1 tablet Orally Once a day Unknown metFORMIN HCl 500 MG 2 TABLETS Orally Tw ice a day Unknown Flonase 50 MCG/ACT 1 spray in each nost ril Nasally PRN Unknown IMMUNIZATIONS Vaccine Route Administration Date Status Comme nts Influenza Unknown 12/09/2023 Refused PROBLEMS Problem Type ICD Code Onset Dates Problem Status W/U Status Risk SNOMED Code Notes Problem FH: colon cancer (Z80.0) Active confirmed [id number] VITAL SIGNS BMI 32.22 kg/m2 12/09/2023 Blood pressure systolic 000 mm Hg 12/09/19 24 Blood pressure diastolic 00 mm Hg 024 Height 69.5 in 12/09/2023 Temperature 97.7 degrees Fahrenheit 12/09/19 Weight 221 lb 6 oz lbs 12/09/2023 Encounters Encounter Location Date Provider Diagnosis [facility] [address] [place] [address] 12/09/2023 Cedrick Justin Jr Colon cancer screening Z12.11 ; Long-term use of aspirin therapy Z79.82 and FH: colon cancer Z80.0 ASSESSMENTS Encounter Date Diagnosis Assessment Notes Treatment Notes Treatment Clinical Notes 12/09/2023 Colon cancer screening (ICD-10 - Z12.11) Digestive diseases material was printed 12/09/2023 Long-term use of aspirin therapy (ICD-10 - Z79.82) 12/09/2023 FH: colon cancer (ICD-10 - Z80.0) PLAN OF TREATMENT Medication Medication Name Sig Start Date Stop Date Notes MiraLax (colon prep) 17 GM/SCOOP mixed with Gatorade or Crystal Light Orally begin at 5:00 p.m. the day before the procedure for 1 day 12/09/2023 Treatment Notes Assessment Notes Colon cancer screening Digestive disease s material was printed Future Test Test Name Order Date COLONOSCOPY 12/09/2023 Next Appt Details Follow Up: 1 Year, Reason: Provider Name:Cedrick licona Jr, 01/25/2025 09:20:00 AM, [address], [address], [place], [address], Progress Notes * Examination Category Sub-Category Detail Notes General Examination GENERAL APPEARANCE: in no ac omar distress HEAD: normocephalic EYES: sclera non-icteric NECK/THYROID: no lymphadenopathy HEART: S1, S2 normal, no mu rmurs CHEST: normal shape and exp ansion LUNGS: clear to auscultatio n bilaterally ABDOMEN: soft, nontender, non distended, bowel sounds present, no organomegaly SKIN: anicteric EXTREMITIES: no clubbing, cyanosi s, or edema PSYCH: cognitive function i ntact ORAL CAVITY: mucosa moist
--- OUTSIDE RECORDS SUMMARY | 2024-05-10 23:26 | XMS_ITS | Encounter Summary ---
Author Name [facility] Address [address] [place] [address] Care Team Providers Care Computer Video Game Designer Name Role Phone MISSY MALLORY Primary Care Provider Unavailabl e Insurance Providers: All historical and current Section Date Range: From patient's date of to the date document was created. This section includes the names of all active insurance providers for the patient. Insurance Provider Type of Coverage Plan Name Start of Policy Coverage End of Policy Coverage Group Number Member ID Insurance Provider's Telephone Number Policy Martínez's Name Patient's Relationship to Policy Martínez [employer] [facility] (WNR) MEDICARE ADVANTAGE MCR ([facility]) Jun 01, 2023 [id number] [phone] TOMEKA OLIVIER PATIENT [employer] [facility] (WNR) MEDICARE ADVANTAGE MCR ([facility]) Jun 01, 2021 [id number] [phone] TOMEKA OLIVIER PATIENT [employer] [facility] (WNR) MEDICARE ADVANTAGE MCR ([place]) Jun 01, 2019 [id number] ZHAOTOMEKA ROBERTSON PATIENT FOR LIFE TFL* Jun 01, 2017 [id number] CHARLINE TOMEKA PATIENT [facility] (WNR) MEDICARE ADVANTAGE [facility] ([facility]) Jun 01, 2014 [id number] TOMEKA OLIVIER PATIENT Selected Encounter This section includes the information on record at [place] for the Encounter. Date/Time Encounter Type Encounter Description Reason Provider Source Jun 03, 2023 02:00 PM HEARING AID FITTING/CHECKING AUDIOLOGY ICD-10-CM Z46.1 Encounter for fitting and adjustment of hearing aid AVANI PERAZA IHRebecca Encounter Template Text not used by [place] Assessments - Encounter Diagnoses This section includes the primary and secondary diagnoses documented for the Encounter. Date/Time Primary/Secondary Diagnosis Diagnosis Name Provider Source Jun 03, 2023 02:33 PM PRIMARY Encounter for fitting and adjustment of hearing aid [facility]A [place] [facility] Jun 03, 2023 02:33 PM SECONDARY Sensorineural hearing loss, bilateral [place]IBPJ [place] [facility] [place] [facility] Plan of Treatment: Future Appointments (+ 6 months) and Future Tests (+/- 45 days) The Plan of Treatment section includes future care activities for the patient from all [place] treatmentfacilities. This section includes future appointments and future orders which are active, pending or scheduled. Future Appointments This section includes appointments that were scheduled to occur 6 months from the date of the Encounter, up to a maximum of 20 appointments. The data comes from all [place] treatment facilities. Appointment Date/Time Appointment Type Appointme nt Facility Name Nov 27, 2023 09:00 AM AMBULATORY - MEDICINE [facility] Social History: Smoking Status (Most current) and Tobacco Use (All prior to encounter date) This section includes the most current, and the historical, smoking and tobacco- related health factors from the VA facility where the Encounter took place. Current Smoking Status This section includes the most current smoking, or tobacco-related health factor, from the VA facility where the Encounter took place. Date/Time Current Smoking Status Comment Facil ity Nov 26, 2022 09:30 AM [place] Tobacco Use History This section includes a history of the smoking, or tobacco-related health factors, that were collected on or before the date of the Encounter. The data comes from the [place] facility where the Encounter took place. Date/Time Smoking Status/Tobacco Use Comment F acility Nov 26, 2021 09:00 AM [place] [place] [facility] May 01, 2020 11:00 AM VA-TOBACCO NEVER USED [facility] [place] [facility] Apr 19, 2019 02:33 PM VA-TOBACCO FORMER USER [facility] [place] [facility] Apr 19, 2019 02:33 PM VA-TOBACCO QUIT 15 YRS OR MORE [place] [facility] [place] [facility] Encounter Notes: All associated encounter notes This section contains the clinical notes associated to the Encounter. Date/Time Encounter Note(s) Provider Source Jun 03, 2023 12:39 PM AUDIOLOGY E & M NO TE: [facility] TITLE: AUDIOLOGY CLINIC STANDARD TITLE: AUDIOLOGY E & M NOTE DATE OF NOTE: JUN 03, 2023@12:39 ENTRY DATE: JUN 03, 2023@12:39:58 AUTHOR: AVANI PERAZA COSIGNER: URGENCY: STATUS: COMPLETED Hearing Aid Check Subjective: 82year-old [place] seen today for a check of his binaural Signia Pure C&G T7AX COLE-R hearing aids issued 01/28/23 at the [facility]. He reports today that the adjustments made here 04/27/23 were an improvmement, however, recently, his left hearing aid stopped streaming to his TV connector device. He accesses the TV streaming via the [employer] cell phone mariano. He also wonders what the user controls are for. Objective/Assessment: Loaded hearing aids into JENSEN session which prompted a firmware update. Reviewed his user controls and alert tones. He stated that the hearing aids sounded better after the were connected to the software, but no hearing aid adjustments were made, only a firmware update. Checked the settings in his iPhone and the left hearing aid did not seem to be paired to the phone which may be the issue with TV streaming. Re-paired both right and left hearing aids to his iPHone, checked [employer] mariano and both hearing aids were connected. Plan: 1. with new firmware update and hearing aids re-paired to phone, he will try the TV streaming when he gets home. If it is still not working with his left hearing aid or either hearing aid, he was advised to re-pair the aids to the TV connector and he was given the tech support number should he need assistance. /estefany/ AVANI PERAZA, Samy, CCC-A PRINCIPAL MECHANICAL ENGINEER, AUDIOLOGY Signed: 06/03/2023 15:08 AVANI PERAZARL [facility]
--- OUTSIDE RECORDS SUMMARY | 2024-05-10 23:26 | XMS_ITS ---
Author Organization [facility] Address [address] [place] [address] Care Team Providers Care Senior Professional Services Consultant Name Role Phone Vini Mendoza MD Primary Care Provider Jennifer Justin Jr, Cedrick Blank REASON FOR VISIT screening Encounters Encounter Location Date Provider Diagnosis [facility] [address] [place] [address] [phone] 01/26/2024 Cedrick Justin Jr Colon cancer screening Z12.11 ; Family history of colon cancer Z80.0 and Colon polyps K63.5 ASSESSMENTS Encounter Date Diagnosis Assessment Notes Treatment Notes Treatment Clinical Notes 01/26/2024 Colon cancer screening (ICD-10 - Z12.11) 01/26/2024 Family history of colon cancer (ICD-10 - Z80.0) 01/26/2024 Colon polyps (ICD-10 - K63.5) PLAN OF TREATMENT Next Appt Details Provider Name:Cedrick licona Jr, 01/25/2025 09:20:00 AM, [address] [place] [address], [address], [place], [address],
--- OUTSIDE RECORDS SUMMARY | 2024-05-10 23:27 | XMS_ITS | Encounter Summary ---
Author Name [facility] [place] [facility] [place] Organization [facility] [place] [place] Address [address] [place] [address] Care Team Providers Care Industrial Plant Custodian Name Role Phone MISSY MALLORY Primary Care [...] Martínez's Name Patient's Relationship to Policy [facility] MEDICARE ADVANTAGE MCR ([facility]) Jun 01, 2023 [id number] [phone] TOMEKA OLIVIER PATIENT LUIS MTNA [facility] (WNR) MEDICARE ADVANTAGE MCR ([facility]) Jun 01, 2021 [id number] [phone] TOMEKA OLIVIER PATIENT AETNA [facility] (WNR) MEDICARE [facility] (R) Jun 01, 2019 [id number] TOMEKA OLIVIER PATIENT FOR LIFE TFL* Jun 01, 2017 [id number] CHARLINE TOMEKA PATIENT [facility] (WN) MEDICARE ADVANTAGE [facility] ([facility]) Jun 01, 2014 [id number] TOMEKA OLIVIER PATIENT Selected Encounter This section includes the information on record at [place] for the Encounter. Date/Time Encounter Type Encounter Description Reason Provider Source Nov 27, 2023 09:00 AM OFFICE O/P EST MOD 30 MIN PRIMARY CARE/MEDICINE ICD-10-CM I10 Essential (primary) hypertension MOHAMUD,MISSY VIJAYA E Encounter Template Text not used by [place] Assessments - Encounter Diagnoses This section includes the primary and secondary diagnoses documented for the Encounter. Date/Time Primary/Secondary Diagnosis Diagnosis Name Provider Source Nov 27, 2023 09:42 AM PRIMARY Essential (primary) hypertension MOHAMUDMISSY [facility] [place] [facility] Nov 27, 2023 09:42 AM SECONDARY Benign prostatic hyperplasia without lower urinry tract symp MOHAMUDOTILIAA VIJAYA [facility] [place] [facility] Nov 27, 2023 09:42 AM SECONDARY Gross hematuria MOHAMUDOTILIAA VIJAYA [facility] [place] [facility] Nov 27, 2023 09:42 AM SECONDARY Hyperlipidemia, unspecified MOHAMUD,MISSY VIJAYA [facility] [place] [facility] Nov 27, 2023 09:42 AM SECONDARY Type 2 diabetes mellitus without complications MOHAMUD,MISSY VIJAYA [facility] [place] [facility] Plan of Treatment: Future Appointments (+ 6 months) and Future Tests (+/- 45 days) The Plan of Treatment section includes future care activities for the patient from all [place] treatmentfacilities. This section includes future appointments and future orders which are active, pending or scheduled. Future Appointments This section includes appointments that were scheduled to occur 6 months from the date of the Encounter, up to a maximum of 20 appointments. The data comes from all [place] treatment facilities. Appointment Date/Time Appointment Type Appointme nt Facility Name Dec 10, 2023 08:00 AM AMBULATORY - REHAB MEDICIN E [facility] [place] [facility] Vital Signs: All taken on the encounter date This section contains inpatient and outpatient Vital Signs collected on the date of the Encounter. Date/Time Temperature Pulse Blood Pressure Respiratory Rate SP02 Pain Height Weight Body Mass Index Source Nov 27, 2023 09:00 AM 60 139/73 [facility] [place] [facility] Nov 27, 2023 08:57 AM 220 32 [facility] [place] [facility] Nov 27, 2023 08:49 AM 98.2 61 146/74 16 95 0 [facility] [place] [facility] Social History: Smoking Status (Most current) and Tobacco Use (All prior to encounter date) This section includes the most current, and the historical, smoking and tobacco- related health factors from the [place] facility where the Encounter took place. Current Smoking Status This section includes the most current smoking, or tobacco-related health factor, from the [place] facility where the Encounter took place. Date/Time Current Smoking Status Comment Facil ity Nov 27, 2023 09:00 AM VA-TOBACCO FORMER USER [place] [facility] [place] [facility] Tobacco Use History This section includes a history of the smoking, or tobacco-related health factors, that were collected on or before the date of the Encounter. The data comes from the [place] facility where the Encounter took place. Date/Time Smoking Status/Tobacco Use Comment F acility Nov 27, 2023 09:00 AM VA-TOBACCO QUIT 15 YRS OR MORE [facility] [place] [facility] Nov 26, 2022 09:30 AM VA-TOBACCO NEVER USED [facility] [place] [facility] Nov 26, 2021 09:00 AM VA-TOBACCO NEVER USED [facility] [place] [facility] May 01, 2020 11:00 AM VA-TOBACCO NEVER USED [facility] [place] [facility] Apr 19, 2019 02:33 PM VA-TOBACCO FORMER USER [facility] [place] [facility] Apr 19, 2019 02:33 PM VA-TOBACCO QUIT 15 YRS OR MORE [facility] [place] [facility] Encounter Notes: All associated encounter notes This section contains the clinical notes associated to the Encounter. Date/Time Encounter Note(s) Provider Source Nov 27, 2023 09:05 AM PRIMARY CARE NURSE PRACTITIONER OUTPATIENT NOTE: LOCAL TITLE: NURSE PRACTITIONER OUTPATIENT NOTE STANDARD TITLE: PRIMARY CARE NURSE PRACTITIONER OUTPATIENT NOTE DATE OF NOTE: NOV 27, 2023@09:05 ENTRY DATE: NOV 27, 2023@09:05:23 AUTHOR: MISSY MALLORY EXP COSIGNER: URGENCY: STATUS: COMPLETED NURSE PRACTITIONER OUTPATIENT NOTE Has ADDENDA Chief complaint: Pt is a 83 who comes in for follow up of medical problems as noted below. HPI: Gets all his Primary care through Dr Mendoza in [place] Gross hematuria Follows with urology in [place] and now on a medication he is not sure of name thinking Tamsulosin for Prostate, had cystoscopy and was normal his urologist wanted him to take this med likely tamsulosin for prostate even though no urinary dariana issues he sees her annually No more hematuria HTN controlled, takes metoprolol and recently put on irbesartan/HCTZ HLD stable on atorvastatin gets lipids annually BPH Stable on med he thinks tamsulosin will check at home and will call me to update chart Type II DM sitagliptin and metformin He has upcoming appt with Non VA PCP for a1c check Hearing has routine Audiology appts here PMH: Active problems - Computerized Problem List is the source for the followin. Benign essential hypertension 2. Diabetes Mellitus Type 2 ([facility] [id number]) 3. Benign Prostatic Hypertrophy Without Outflow Obstruction ([facility] [id number]) 4. Hyperlipidemia ([facility] [id number]) Allergies: Patient has answered NKA The following VA and Non-VA meds were reconciled with patient: Active and Recently Outpatient Medications (excluding Supplies): Active Non-VA Medications Status 1) Non-VA ASPIRIN 81MG CHEW TAB 81MG BY MOUTH ONCE DAILY ACTIVE 2) Non-VA ATORVASTATIN CALCIUM 20MG TAB 10MG BY MOUTH ACTIVE EVERY EVENING 3) Non-VA HCTZ 12.5/IRBESARTAN 150MG TAB 1 TABLET BY ACTIVE MOUTH ONCE DAILY 4) Non-VA LEVOCETIRIZINE DIHYDROCHLORIDE 5MG TAB 5MG BY ACTIVE MOUTH EVERY EVENING 5) Non-VA METFORMIN HCL 1000MG TAB 1000MG BY MOUTH TWICE ACTIVE DAILY 6) Non-VA METOPROLOL SUCCINATE 50MG SA TAB 50MG BY MOUTH ACTIVE ONCE DAILY 7) Non-VA MONTELUKAST NA 10MG TAB 10MG BY MOUTH ONCE ACTIVE DAILY 8) Non-VA SITAGLIPTIN (EQV-JANUVIA) 100MG TAB 100MG BY ACTIVE MOUTH ONCE DAILY Allergies: Patient has answered NKA VITAL SIGNS: 98.2 F [36.8 C] (11/27/2023 08:49) 60 (11/27/2023 09:00) 16 (11/27/2023 08:49) 139/73 (11/27/2023 09:00) 0 (11/27/2023 08:49) 70 in [177.8 cm] (11/26/2021 08:04) 220 lb [99.79 kg] (11/27/2023 08:57) BMI: 31.6 ROS SKIN: denies any rashes or suspicious lesions RESP: denies SOB or cough CV: denies CP or pedal Edema GI: denies abd pain, hematochezia : denies hematuria, nocturia ENDO: denies polyuruia, polydipsia Musculo: denies weakness or joint pain NEURO: denies seizure hx or paresthesia's Mental Health: Denies SI, HI PHYSI ABBE EXAM GENERAL: well appearing in NAD, speeking in clear sentences. SKIN: Clean, dry intact no rashes , lesions or nodules observed. RESP: CTAB, no wheezing or Rales. Cards: S1 S2 RRR, No m/r/g no JVD, No Pedal Edema, Distal Pulses palpable GI: Soft NT/ND NEURO CN II-XII grossly intact, gait steady without shuffle, NOrmal sensation to feet bilaterally MENTAL A&Ox3 Appropriate, Pleasant, Cooperative LAB RESULTS LAST 1440 HRS - NONE FOUND Future Clinic Visits 12/01/2023 08:00 CWM NO AUDIO HAC B ASSESSMENT AND PLAN: Gross hematuria -Follows with urology -Hematuria has subsided HTN -Well controlled -Cont metoprolol and irbesartan/HCTZ as rx'd HLD -Cont atorvastatin -gets lipids annually BPH -No urinary flow issue -on med he thinks tamsulosin will check at home and will call me to update chart Type II DM -Continue Routine A1C checkes -Cont sitagliptin and metformin Patient prefers to follow up with off-site PCP regularly for titration of meds and management of chronic conditions. He will come here annually. Advised if anything changes and no longer following with off-site PCP, please call lead front desk agent to schedule sooner appt with [facility] PCP. Return to clinic to see me in 12 months, RTC sooner if needed. 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 [place] has no concerns about toxic exposure(s) while serving in the Armed Forces. The /caregiver was informed that we will continue to ask this screening question every 5 years. They can contact their provider/healthcare team if they have concerns about exposures and would like to be screened sooner. Printed information was offered and provided if desired. Hemoglobin A1C: [facility] had HBA1C result from another health care site (results required). Date: October 09, 2023 Location: Outside Healthcare Provider Results: <6 /estefany/ SHELLY FERNANDEZ Nurse Practitioner Signed: 11/27/2023 09:41 11/28/2023 ADDENDUM STATUS: COMPLETED Vet called with the med that urology is prescribing its Finasteride 1mg daily I have updated his Med chart /estefany/ SHELLY FERNANDEZ Nurse Practitioner Signed: 11/28/2023 08:59 MISSY MALLORY [facility] [place] [facility] Nov 27, 2023 08:40 AM PREVENTIVE MEDICINE NURSING NOTE: LOCAL TITLE: CLINICAL REMINDERS/NURSING STANDARD TITLE: PREVENTIVE MEDICINE NURSING NOTE DATE OF NOTE: NOV 27, 2023@08:40 ENTRY DATE: NOV 27, 2023@08:40:20 AUTHOR: HUANG CRUZ COSIGNER: URGENCY: STATUS: COMPLETED Tobacco Use Screening: The patient is a former tobacco user. The patient quit fifteen or more years ago. COVID-19 Immunization: Refused Moderna Monovalent COVID-19 vaccine Immunization: COVID-19 (MODERNA), MRNA, LNP-S, PF, 50 MCG/0.5 ML (AGES 12+ YEARS) Refusal Reason: PATIENT DECISION Patient refuses all immunization(s) in the COVID-19 group Date Documented: 11/27/23 08:52 Herpes Zoster (Shingles) Vaccine: Prior Herpes Zoster vaccination The patient has been vaccinated in the past but written documentation of vaccination is not available today. Patient instructed to obtain a written record of the prior vaccine and bring it to the next appointment. Depression Screening: Perform PHQ-2 A PHQ-2 screen was performed. The score was 0 which is a negative screen for depression. Over the past two weeks, how often have you been bothered by the following problems? 1. Little interest or pleasure in doing things Not at all 2. Feeling down, depressed, or hopeless Not at all Suicide Screen: C-SSRS Screening Wise Suicide Severity Rating Scale (C-SSRS) screener 1. Over the past month, have you wished you were or wished you could go to sleep and not wake up? No 2. Over the past month, have you had any actual thoughts of killing yourself? No 3. Over the past month, have you been thinking about how you might do this? Response not required due to responses to other questions. 4. Over the past month, have you had these thoughts and had some intention of acting on them? Response not required due to responses to other questions. 5. Over the past month, have you started to work out or worked out the details of how to kill yourself? Response not required due to responses to other questions. 6. If yes, at any time in the past month did you intend to carry out this plan? Response not required due to responses to other questions. 7. In your lifetime, have you ever done anything, started to do anything, or prepared to do anything to end your life (for example, collected pills, obtained a gun, gave away valuables, went to the roof but didn't jump)? No 8. If YES, was this within the past 3 months? Response not required due to responses to other questions. Homelessness/Food Insecurity Screen: In the past 2 months, have you been living in stable housing that you own, rent, or stay in as part of a household? Yes - Living in stable housing. Are you worried or concerned that in the next 2 months you may NOT have stable housing that you own, rent, or stay in as part of a household? No - Not worried about housing near future The [facility] reports the following: Within the past 12 months, you worried whether your food would run out before you got money to buy more. Never true Within the past 12 months, the food you bought just didn't last and you didn't have money to get more. Never true PAVE Foot Check: Patient indicates foot exam (including monofilament test for sensation) was performed in the past year in the private sector: Date: July 02, 2023 Result: Normal PTSD Screening: PC-PTSD-5 A PTSD screening test (PC-PTSD-5) was negative (score=0). IN THE PAST MONTH, have you ever had any experience that was so frightening, horrible or traumatic. For example: A serious accident or fire a physical or sexual assault or abuse An earthquake or flood A war Seeing someone be killed or seriously injured Having a loved one through homicide or suicide 1. Have you ever experienced this kind of event? NO 2. Had nightmares about the event(s) or thought about the event(s) when you did not want to? Response not required due to responses to other questions. 3. Tried hard not to think about the event(s) or went out of your way to avoid situations that reminded you of the event(s)? Response not required due to responses to other questions. 4. Been constantly on guard, watchful, or easily startled? Response not required due to responses to other questions. 5. [place] numb or detached from people, activities, or your surroundings? Response not required due to responses to other questions. 6. [place] guilty or unable to stop blaming yourself or others for the event(s) or any problems the event(s) may have caused? Response not required due to responses to other questions. Alcohol Use Screen (AUDIT-C): Alcohol Screen: SCREEN FOR ALCOHOL (AUDIT-C) An alcohol screening test (AUDIT-C) was negative (score=0). 1. How often did you have a drink containing alcohol in the past year? Consider a drink to be a 12 ounce can or bottle of regular beer, 8 ounces of malt liquor, a 5 ounce glass of table wine, or a 1.5 ounce shot of liquor (like scotch, gin, or vodka). Never 2. How many drinks containing alcohol did you have on a typical day when you were drinking in the past year? Response not required due to responses to other questions. 3. How often did you have six or more drinks on one occasion in the past year? Response not required due to responses to other questions. Influenza Immunization: The patient has received the seasonal influenza vaccine for the current season at another location. Documented: INFLUENZA, UNSPECIFIED FORMULATION Historical Date Administered: Mar 01, 2023 Outside Location: Outside Healthcare Provider Information Source: FROM PATIENT'S RECALL Tdap Immunization: The patient may have been vaccinated in the past but written documentation of vaccination is not available today. Patient instructed to obtain a written record of the prior vaccine and bring it to the next appointment. Herpes Zoster (Shingles) Vaccine: Prior Herpes Zoster vaccination The patient has been vaccinated in the past but written documentation of vaccination is not available today. Patient instructed to obtain a written record of the prior vaccine and bring it to the next appointment. Falls & Incontinence Screen: Falls Screen: 4. No falls within the past year. Incontinence Screen No incontinence. Pneumococcal Conjugate Vaccine (PCV15/PCV20): The patient may have been vaccinated in the past but written documentation of vaccination is not available today. Patient instructed to obtain a written record of the prior vaccine and bring it to the next appointment. Sexual Orientation: The patient thinks of their sexual orientation as: Reminder deferred for this visit. /estefany/ HUANG CRUZ REGISTERED NURSE Signed: 11/27/2023 09:06 HUANG CRUZ [facility]
--- OUTSIDE RECORDS SUMMARY | 2024-05-10 23:27 | XMS_ITS ---
Author Organization Vini Mendoza MD Address [address] [place] [phone] Care Team Providers Care Carbon Furnace Operator Helper Name Role Phone Vini Mendoza Primary Care Provider [phone] ALLERGIES No Known Allergies RESULTS Component Value Reference Range Notes Hemoglobin A1c Reviewed date:10/23/2023 01:18:16 PM Interpretation: Performing Lab: Notes/Report: Value Hemoglobin A1c 9.7 Glucose, finger stick Reviewed date:10/23/2023 01:11:36 PM Interpretation: Performing Lab: Notes/Report: Value 158 REASON FOR VISIT 4 month, No Covid symptoms MEDICATIONS Medication SIG (Take, Route, Frequency, Duration) Notes Start Date End Date Status Finasteride 5 MG 1 tablet Orally Once a day Active Xyzal Allergy 24HR 5 MG 1 tablet in the evening Orally Once a day for 30 day(s) Active Montelukast Sodium 10 MG TAKE ONE TABLET BY MOUTH EVERY DAY IN THE EVENING for 90 Active Aspir-Low 81 MG 1 tablet Orally Once a day for 30 day(s) Active Atorvastatin Calcium 10 MG TAKE ONE TABLET BY MOUTH EVERY DAY Active Januvia 100 MG TAKE ONE TABLET BY MOUTH EVERY DAY Active Metoprolol Succinate ER 50 MG TAKE ONE TABLET BY MOUTH EVERY DAY Active metFORMIN HCl 1000 MG TAKE ONE TABLET BY MOUTH TWICE A DAY WITH MEALS Active 5 MinutesTouch Delica Lancing Dev as directed for 50 03/03/2013 Active 5 MinutesTouch Ultra Test TEST BLOOD GLUCOSE TWICE A DAY for 50 Active Irbesartan-hydroCHLOROthi azide 150-12.5 MG TAKE ONE TABLET BY MOUTH EVERY DAY Active Valtrex 1 GM 2 tablet Orally ever y 12 hrs for 1 dose 05/07/2012 Not-Taking Fluticasone Propionate 50 MCG/ACT USE 1 SPRAY IN EACH NOSTRIL ONCE A DAY for 90 Active VITAL SIGNS BMI 31.13 kg/m2 10/23/2023 Blood pressure systolic 132 mm Hg 10/23/19 24 Blood pressure diastolic 60 mm Hg 024 Height 70 in 10/23/2023 Weight 217 lbs 10/23/2023 weight is up 8 pounds since 06-29-23 Encounters Encounter Location Date Provider Diagnosis Vini Mendoza MD [address] [place] [address] [address] [place], [place] [phone] 10/23/2023 Vini Mendoza Type 2 diabetes mellitus without complication E11.9 and Essential hypertension I10 ASSESSMENTS Encounter Date Diagnosis Assessment Notes Treatment Notes Treatment Clinical Notes 10/23/2023 Type 2 diabetes mellitus without complication (ICD-10 - E11.9) needs to get back on diet., will continue current regiment 10/23/2023 Essential hypertension (ICD-10 - I10) stable, will continue current regiment PLAN OF TREATMENT Medication Medication Name Sig Start Date Stop Date Notes Januvia 100 MG TAKE ONE TABLET BY M OUTH EVERY DAY Metoprolol Succinate ER 50 MG TAKE ONE T ABLET BY MOUTH EVERY DAY metFORMIN HCl 1000 MG TAKE ONE TABLET BY MOUTH TWICE A DAY WITH MEALS Irbesartan-hydroCHLOROthiazi de 150-12.5 MG TAKE ONE TABLET BY MOUTH EVERY DAY Treatment Notes Assessment Notes Type 2 diabetes mellitus without complic ation needs to get back on diet., will continue current regiment Essential hypertension stable, will cont inue current regiment Next Appt Details Follow Up: 4 Months, Reason: Provider Name:Vini herzog, 06/24/2024 07:45:00 AM, [address], [address], [place], [place], [phone], Provider Name:Vini herzog, 07/01/2024 01:00:00 PM, [address], [address], [place], [place], [phone], Progress Notes * Examination Category Sub-Category Detail Notes General Examination GENERAL APPEARANCE: alert, w ell hydrated, in no distress HEAD: normocephalic HEART: no murmurs, rubs, ga llops regular rate and rhythm LUNGS: no wheezes, rales, r honchi good air movement clear to auscultation bilaterally SKIN: good turgor
--- OUTSIDE RECORDS SUMMARY | 2024-05-10 23:27 | XMS_ITS | Encounter Summary ---
Author Name [facility] [place] Organization [facility] Address [address] [place] [address] Care Team Providers Care Service Delivery Manager Name Role Phone MISSY MALLORY Primary Care [...] Name Patient's Relationship to Policy Martínez AETNA [facility] (WNR) MEDICARE ADVANTAGE MCR ([facility]) Jun 01, 2023 [id number] [phone] TOMEKA OLIVIER PATIENT AETNA [facility] (WNR) MEDICARE ADVANTAGE MCR ([facility]) Jun 01, 2021 [id number] [phone] TOMEKA OLIVIER PATIENT AETNA [facility] (WNR) MEDICARE ADVANTAGE MCR (R) Jun 01, 2019 [id number] ZHAOTOMEKA ROBERTSON PATIENT FOR LIFE TFL* Jun 01, 2017 [id number] CHARLINE TOMEKA PATIENT [facility] (WNR) MEDICARE ADVANTAGE [facility] ([facility]) Jun 01, 2014 [id number] [phone] CHARLINE TOMEKA PATIENT Selected Encounter This section includes the information on record at [place] for the Encounter. Date/Time Encounter Type Encounter Description Reason Provider Source Dec 10, 2023 08:00 AM HEARING AID FITTING/CHECKIN G AUDIOLOGY ICD-10-CM Z46.1 Encounter for fitting and adjustment of hearing aid DEVANTE DEL ROSARIO IHE Encounter Template Text not used by [place] Assessments - Encounter Diagnoses This section includes the primary and secondary diagnoses documented for the Encounter. Date/Time Primary/Secondary Diagnosis Diagnosis Name Provider Source Dec 10, 2023 08:22 AM PRIMARY Encounter for fitting and adjustment of hearing aid DEVANTE DEL ROSARIO [place] [facility] [place] [facility] Dec 10, 2023 08:22 AM SECONDARY Sensorineural hearing loss, bilateral MIGUEL ÁNGELDEVANTE Rebecca [place] [facility] [place] [facility] Social History: Smoking Status (Most current) and Tobacco Use (All prior to encounter date) This section includes the most current, and the historical, smoking and tobacco- related health factors from the [place] facility where the Encounter took place. Current Smoking Status This section includes the most current smoking, or tobacco-related health factor, from the [place] facility where the Encounter took place. Date/Time Current Smoking Status Comment Facil ity Nov 27, 2023 09:00 AM VA-TOBACCO FORMER USER [place] [facility] [place] [facility] Tobacco Use History This section includes a history of the smoking, or tobacco-related health factors, that were collected on or before the date of the Encounter. The data comes from the [place] facility where the Encounter took place. Date/Time Smoking Status/Tobacco Use Comment F acility Nov 27, 2023 09:00 AM VA-TOBACCO QUIT 15 YRS OR MORE [place] [facility] [place] [facility] Nov 26, 2022 09:30 AM VA-TOBACCO NEVER USED [place] [facility] [place] [facility] Nov 26, 2021 09:00 AM VA-TOBACCO NEVER USED [facility] [place] [facility] May 01, 2020 11:00 AM VA-TOBACCO NEVER USED [facility] [place] [facility] Apr 19, 2019 02:33 PM VA-TOBACCO FORMER USER [facility] [place] [facility] Apr 19, 2019 02:33 PM VA-TOBACCO QUIT 15 YRS OR MORE [facility] Encounter Notes: All associated encounter notes This section contains the clinical notes associated to the Encounter. Date/Time Encounter Note(s) Provider Source Dec 10, 2023 07:48 AM AUDIOLOGY E & M NO TE: LOCAL TITLE: AUDIOLOGY CLINIC STANDARD TITLE: AUDIOLOGY E & M NOTE DATE OF NOTE: DEC 10, 2023@07:48 ENTRY DATE: DEC 10, 2023@07:48:52 AUTHOR: DEVANET DEL ROSARIO EXP COSIGNER: URGENCY: STATUS: COMPLETED has a history of bilateral sensorineural hearing loss. He was seen on 12-10-23 for hearing aid follow up regarding his [facility]. He reports feedback and this is heard today. He reports he got a new iPhone and does not know how to pair it to his hearing aids. He notes that he cannot use the TV device since getting the new phone. Otoscopy is [facility] [place]. The hearing aids were connected to [place] and the feedback test was performed. Recommended automatic adjustments were applied. This seemed to resolve the feedback and reported good sound quality. Assisted with pairing to his phone. It was explained that now he should be able to access the TV stream with the mariano. If problems with connectivity persist, he was advised to call 's tech support at [facility]. He reports in the past, he tried this and he was advised he had to pay for that service- he was instructed to call the clinic if he is told that again. [employer]der will contact the clinic as needed. /estefany/ Roberta SHULTZ, [facility]-A STAFF DIRECTOR OF CUSTOMER SERVICE Signed: 12/10/2023 08:24 DEVANTE DEL ROSARIO [facility]
--- OUTSIDE RECORDS SUMMARY | 2024-05-10 23:27 | XMS_ITS | Encounter Summary ---
Author Name [facility] [place] Organization [facility] [place] Address [address] [place] [address] Care Team Providers Care Clinical Administrator Name Role Phone MISSY MALLORY Primary Care [...] Martínez's Name Patient's Relationship to Policy Martínez [facility] MEDICARE [facility] ([facility]) Jun 01, 2023 [id number] [phone] TOMEKA OLIVIER PATIENT LUI [facility] (WNR) MEDICARE ADVANTAGE [facility] ([facility]) Jun 01, 2021 [id number] [phone] TOMEKA OLIVIER PATIENT AETNA [facility] (WNR) MEDICARE ADVANTAGE [facility] (WNR) Jun 01, 2019 [id number] ZHAOAILYN TOMEKA PATIENT FOR LIFE TFL* Jun 01, 2017 [id number] CHARLINE TOMEKA PATIENT [facility] (WNR) MEDICARE ADVANTAGE [facility] ([facility]) Jun 01, 2014 [id number] TOMEKA OLIVIER PATIENT Selected Encounter This section includes the information on record at [place] for the Encounter. Date/Time Encounter Type Encounter Description Reason Pro vider Source Nov 27, 2023 10:35 AM Outpatient Encounter ADMIN PAT ACTIVTIES (MASNONCT) IHE Encounter Template Text not used by CT Plan of Treatment: Future Appointments (+ 6 months) and Future Tests (+/- 45 days) The Plan of Treatment section includes future care activities for the patient from all CT treatmentfacilities. This section includes future appointments and future orders which are active, pending or scheduled. Future Appointments This section includes appointments that were scheduled to occur 6 months from the date of the Encounter, up to a maximum of 20 appointments. The data comes from all CT treatment facilities. Appointment Date/Time Appointment Type Appointme nt Facility Name Dec 10, 2023 08:00 AM AMBULATORY - REHAB MEDICIN E [facility] Vital Signs: All taken on the encounter date This section contains inpatient and outpatient Vital Signs collected on the date of the Encounter. Date/Time Temperature Pulse Blood Pressure Respiratory Rate SP02 Pain Height Weight Body Mass Index Source Nov 27, 2023 09:00 AM 60 139/[facility] [place] [facility] Nov 27, 2023 08:[address] [facility] [facility] [place] [facility] Nov 27, 2023 08:49 AM 98.2 61 146/74 16 95 [facility] Social History: Smoking Status (Most current) and Tobacco Use (All prior to encounter date) This section includes the most current, and the historical, smoking and tobacco- related health factors from the [place] facility where the Encounter took place. Current Smoking Status This section includes the most current smoking, or tobacco-related health factor, from the [place] facility where the Encounter took place. Date/Time Current Smoking Status Comment Facil ity Nov 27, 2023 09:[address]-TOBACCO FORMER USER [facility] Tobacco Use History This section includes a history of the smoking, or tobacco-related health factors, that were collected on or before the date of the Encounter. The data comes from the [place] facility where the Encounter took place. Date/Time Smoking Status/Tobacco Use Comment F acility Nov 27, 2023 09:00 AM VA-TOBACCO QUIT 15 YRS OR MORE [facility] [place] [facility] Nov 26, 2022 09:30 AM VA-TOBACCO NEVER USED [facility] [place] [facility] Nov 26, 2021 09:00 AM VA-TOBACCO NEVER USED [facility] [place] [facility] May 01, 2020 11:00 AM VA-TOBACCO NEVER USED [facility] [place] [facility] Apr 19, 2019 02:33 PM VA-TOBACCO FORMER USER [facility] [place] [facility] Apr 19, 2019 02:33 PM VA-TOBACCO QUIT 15 YRS OR MORE [facility] [place] [facility] Encounter Notes: All associated encounter notes This section contains the clinical notes associated to the Encounter. Date/Time Encounter Note(s) Provider Source Nov 27, 2023 02:54 PM ADDENDUM: LOCAL TITLE: Addendum STANDARD TITLE: ADDENDUM DATE OF NOTE: NOV 27, 2023@14:54:36 ENTRY DATE: NOV 27, 2023@14:54:37 AUTHOR: HUANG CRUZ EXP COSIGNER: URGENCY: STATUS: COMPLETED adding PCP /estefany/ HUANG CRUZ REGISTERED NURSE Signed: 11/27/2023 14:55 Receipt Acknowledged By: 11/28/2023 08:58 /estefany/ SHELLY FERNANDEZ Nurse Practitioner === --- Original Document --- 11/27/23 CCC: SCHEDULING ADMINISTRATION: Patient Demographics Patient Name: TOMEKA OLIVIER Patient Primary Phone: [phone] Patient Primary Address[place] [address] [place], [place] [address] [address] Patient : 1940 Patient Age: 83 Caller/Recipient Relation to Patient: Self Administrative Administrative Note Reason: Formerly [facility], 1928[facility]1983 Care / [place] Act Administrative Note Comments: patient is calling to let pcp know the name of the information that he lacked when they spoke before......It is Finasteride 5 mg 1 daily /es/ JOCELIN CALDERON 1 [facility] AMS[facility] Signed: 11/27/2023 10:35 Receipt Acknowledged By: * AWAITING SIGNATURE * GALDINO FARRELL 11/27/2023 14:55 /estefany/ HUANG CRUZ REGISTERED NURSE for MARY BLAIR HUANG CRUZ [facility] [place] [facility] Nov 27, 2023 10:35 AM ADMINISTRATIVE NOTE: LOCAL TITLE: CCC: SCHEDULING ADMINISTRATION STANDARD TITLE: ADMINISTRATIVE NOTE DATE OF NOTE: NOV 27, 2023@10:35:11 ENTRY DATE: NOV 27, 2023@10:35:11 AUTHOR: JOCELIN DUNCAN EXP COSIGNER: URGENCY: STATUS: COMPLETED CCC: SCHEDULING ADMINISTRATION Has ADDENDA Patient Demographics Patient Name: TOMEKA OLIVIER Patient Primary Phone: [phone] Patient Primary Address[address] [address] [place], [place] [address] [address] Patient : 1940 Patient Age: 83 Caller/Recipient Relation to Patient: Self Administrative Administrative Note Reason: [facility] / [place] Act Administrative Note Comments: patient is calling to let pcp know the name of the information that he lacked when they spoke before......It is Finasteride 5 mg 1 daily /es/ JOCELIN CALDERON 1 [facility] Signed: 11/27/2023 10:35 Receipt Acknowledged By: 11/30/2023 08:37 /es/ GALDINO FARRELL, MSN, RN, CNL PRIMARY CARE TEAM NURSE 11/27/2023 14:55 /estefany/ HUANG CRUZ REGISTERED NURSE for MARY BLAIR 11/27/2023 ADDENDUM STATUS: COMPLETED adding PCP /estefany/ HUANG CRUZ REGISTERED NURSE Signed: 11/27/2023 14:55 Receipt Acknowledged By: 11/28/2023 08:58 /es/ SHELLY FERNANDEZ Nurse Practitioner [facility]
--- OUTSIDE RECORDS SUMMARY | 2024-05-10 23:27 | XMS_ITS ---
Author Organization Vini Mendoza MD Address [address] [place] [id number] Care Team Providers Care Production Worker Name Role Phone Vini Mendoza Primary Care Provider ALLERGIES No Known Allergies RESULTS Component Value Reference Range Notes Hemoglobin A1c Reviewed date:02/22/2024 09:50:23 AM Interpretation: Performing Lab: Notes/Report: Value Hemoglobin A1c 8.0 Glucose, finger stick Reviewed date:02/22/2024 09:47:31 AM Interpretation: Performing Lab: Notes/Report: Value 159 REASON FOR VISIT 4 MO F/U MEDICATIONS Medication SIG (Take, Route, Frequency, Duration) Notes Start Date End Date Status Valtrex 1 GM 2 tablet Orally ever y 12 hrs for 1 dose 05/07/2012 Not-Taking Atorvastatin Calcium 10 MG TAKE ONE TABLET BY MOUTH EVERY DAY for 90 Active Irbesartan-hydroCHLOROth iazide 150-12.5 MG TAKE ONE TABLET BY MOUTH EVERY DAY for 90 Active Montelukast Sodium 10 MG TAKE ONE TABLET BY MOUTH EVERY EVENING for 90 Active Metoprolol Succinate ER 50 MG TAKE ONE TABLET BY MOUTH EVERY DAY for 90 Active metFORMIN HCl 1000 MG TAKE ONE TABLET BY MOUTH TWICE A DAY WITH MEALS Active Ozempic (0.25 or 0.5 MG/DOSE) 2 MG/3ML as directed Subcutaneous 0.25 mg weekly fminth then .5mg weekly for 30 days 02/22/2024 Active Fluticasone Propionate 50 MCG/ACT USE 1 SPRAY IN EACH NOSTRIL ONCE A DAY for 90 Active Januvia 100 MG TAKE ONE TABLET BY M OUTH EVERY DAY Active Finasteride 5 MG 1 tablet Orally Once a day Active OneTouch Delica Lancing Dev as directed for 50 03/03/2013 Active Aspir-Low 81 MG 1 tablet Orally Once a day for 30 day(s) Active OneTouch Ultra Test TEST BLOOD GLUCOSE T WICE A DAY for 50 Active Xyzal Allergy 24HR 5 MG 1 tablet in the evening Orally Once a day for 30 day(s) Active IMMUNIZATIONS Vaccine Route Administration Date Status Comme nts Influenza High Dose IM Intramuscular 02/22/2024 Administer ed VITAL SIGNS BMI 29.99 kg/m2 02/22/2024 Blood pressure systolic 122 mm Hg 02/22/20 24 Blood pressure diastolic 60 mm Hg 024 Height 70 in 02/22/2024 Weight 209 lbs 02/22/2024 weight is down 8 [facility] 5-[facility]-24 Encounters Encounter Location Date Provider Diagnosis Vini Mendoza MD [address] [place], [place] [id number] 02/22/2024 Vini Mendoza Type 2 diabetes mellitus without complication E11.9 and Encounter for immunization Z23 ASSESSMENTS Encounter Date Diagnosis Assessment Notes Treatment Notes Treatment Clinical Notes 02/22/2024 Type 2 diabetes mellitus without complication (ICD-10 - E11.9) patient verbalized nderstanding of medication and directions for use 02/22/2024 Encounter for immunization (ICD-10 - Z23) flu vaccine administered PLAN OF TREATMENT Medication Medication Name Sig Start Date Stop Date Notes metFORMIN HCl 1000 MG TAKE ONE TABLET BY MOUTH TWICE A DAY WITH MEALS Ozempic (0.25 or 0.5 MG/DOSE) 2 MG/3ML as directed Subcutaneous 0.25 mg weekly fminth then .5mg weekly for 30 days 02/22/2024 Januvia 100 MG TAKE ONE TABLET BY M OUTH EVERY DAY Treatment Notes Assessment Notes Type 2 diabetes mellitus wit hout complication patient verbalized nderstanding of medication and directions for use Encounter for immunization flu vaccine a dministered Next Appt Details Follow Up: 2 Months, Reason: Provider Name:Vini herzog, 06/24/2024 07:45:00 AM, [address] [facility], [address], [place], [place], [phone], Provider Name:Vini herzog, 07/01/2024 01:00:00 PM, [address] [place] [address], [address], [place], [place], [phone], Progress Notes * Examination Category Sub-Category Detail Notes General Examination GENERAL APPEARANCE: alert, w ell hydrated, in no distress HEAD: normocephalic EYES: BOTH EYES, normal HEART: no murmurs, rubs, ga llops, regular rate and rhythm LUNGS: no wheezes, rales, r honchi, good air movement, clear to auscultation bilaterally SKIN: good turgor
--- OUTSIDE RECORDS SUMMARY | 2024-05-10 23:27 | XMS_ITS | Patient Health Record ---
Author Organization Vini Mendoza MD Address [address] [place] [phone] Care Team Providers Care Travel Accommodations Rater Name Role Phone Vini Mendoza Primary Care Provider ALLERGIES No Known Allergies RESULTS Component Value Reference Range Notes Hemoglobin A1c Reviewed date:06/29/2023 01:27:04 PM Interpretation: Performing Lab: Notes/Report: Value Hemoglobin A1c 9.7 Hemoglobin A1c Reviewed date:10/23/2023 01:18:16 PM Interpretation: Performing Lab: Notes/Report: Value Hemoglobin A1c 9.7 Hemoglobin A1c Reviewed date:02/22/2024 09:50:23 AM Interpretation: Performing Lab: Notes/Report: Value Hemoglobin A1c 8.0 Glucose, finger stick Reviewed date:05/22/2023 10:44:47 AM Interpretation: Performing Lab: Notes/Report: Value 197 Electrocardiogram (EKG) Reviewed date:05/22/2023 01:30:48 PM Interpretation: Performing Lab: Notes/Report: Glucose, Whole Blood Reviewed date:06/02/2023 02:44:45 PM Interpretation: Performing Lab:[facility], [address] [place] [phone] Notes/Report: Glucose, Whole Blood 188 60-115 mg/dL METER # : [id number] Pathology Reviewed date:06/04/2023 12:45:13 PM Interpretation: Performing Lab:[facility], [address] [place] [phone] Notes/Report: Hold Lav - Possible Hematolo gy Reviewed date:06/22/2023 12:24:50 PM Interpretation: Performing Lab:[facility], [address] [place] [phone] Notes/Report: Hold Lav - Possible Hematology SEE NOTE Specimen will be held untested for 8 hours. Call Hematology if testing is desired. Urine Culture Reviewed date:06/23/2023 12:29:32 PM Interpretation: Performing Lab:[facility], [address] [place] [phone] Notes/Report: Urine Culture Report Result Urine Culture 10,000 to 50,000 cfu/ml Urine Culture Mixed bacterial ann a characteristic of Urine Culture urogenital contamination. Complete Blood Count Auto Di ff Reviewed date:06/22/2023 05:16:32 PM Interpretation: Performing Lab:[facility], [address] [place] [phone] Notes/Report: White Blood Count 8.7 4.8-10.8 X10*3/uL Red Blood Count 4.31 4.60-5.80 X10*6/uL Hemoglobin 13.2 14.0-18.0 g/dl Hematocrit 40.7 42.0-52.0 % Mean Corpuscular Volume 94.4 80.0-98.0 fL Mean Corpuscular Hemoglobin 30.6 27.0-33.0 pg Mean Corpuscular HGB Conc 32.4 31.0-36.0 g/dl Red Cell Distribution Width 13.2 11.0-16.0 % Platelet Count 205 160-400 X10*3/uL Mean Platelet Volume 11.2 9.4-12.4 fL Neutrophils Percent Auto 68.2 45-73 % Imm Gran Pct Auto 0.5 0.0-0.4 % Lymphocytes Percent Auto 20.1 20-40 % Monocytes Percent Auto 8.5 2-11 % Eosinophils Percent Auto 2.2 0-4 % Basophils Percent Auto 0.5 0-2 % NRBC Pct Auto 0.0 0.0-0.2 /100WBC Neutrophils Absolute Auto 5.9 2.0-8.3 x10*3/u L Imm Gran Abs Auto 0.04 0.00-0.03 X10*3/uL Lymphocytes Absolute Auto 1.8 1.2-4.9 X10*3/u L Monocytes Absolute Auto 0.7 0.1-1.2 X10*3/uL Eosinophils Absolute Auto 0.2 0.0-0.4 X10*3/u L Basophils Absolute Auto 0.0 0.0-0.2 X10*3/uL NRBC Abs Auto 0.000 0.0-0.012 X10*3/uL Comprehensive Herrick. Panel Fa st Reviewed date:06/22/2023 05:22:48 PM Interpretation: Performing Lab:[facility], [address] [place] [phone] Notes/Report: Sodium 143 135-145 mmol/L Potassium 4.4 3.3-5.1 mmol/L Chloride 106 96-108 mmol/L Carbon Dioxide 29 22-29 mmol/L Anion Gap 12 12-20 Blood Urea Nitrogen 13 9-16 mg/dL Creatinine 1.12 0.5-1.4 mg/dL Estimated Glomerular Filt Rate > 60 NOTE: For -Haitian individuals, multiply the result by 1.210. Chronic Kidney Disease: Estimated GFR < 60 mL/min/1.73m2 Severe Kidney Disease: Estimated GFR < 15 mL/min/1.73m2 Glucose Fasting 171 60-99 mg/dL A fasting glucose of 126 mg/dl or greater on more than one occasion is considered diagnostic of diabetes. Calcium 9.4 8.4-10.2 mg/dL Bilirubin Total 1.0 0.0-1.0 mg/dL Aspartate Amino Transferase 51 5-37 U/L Alanine Aminotransferase 55 0-40 U/L Total Protein 6.8 6.5-8.0 g/dL Albumin Level 3.9 3.5-5.0 g/dL Alkaline Phosphatase 70 39-117 U/L Lipid Panel Reviewed date:06/22/2023 05:16:03 PM Interpretation: Performing Lab:[facility], [address] [place] [phone] Notes/Report: Triglycerides 216 <150 mg/dL Desirable Triglyceride: less than 150 mg/dL Borderline High Triglyceride 150-199 mg/dL High Triglyceride: 200-499 mg/dL Very High Triglyceride: greater than or equal to 5OO mg/dL Cholesterol 123 <200 mg/dL Desirable Cholesterol: less than 200 mg/dL Borderline High Cholesterol: 200-239 mg/dL High Cholesterol: greater than 239 mg/dL LDL Cholesterol Calculated 48 <100 mg/dL Desirable LDL: less than 100 mg/dL Near Optimal/Above Optimal LDL: 110-129 mg/dL Borderline High LDL: 130-159 mg/dL High LDL: 160-189 mg/dL Very High LDL: greater than or equal to 190 mg/dL HDL Cholesterol 32 >40 mg/dL Desirable HDL: greater than 40 mg/dL Note: This HDL assay may give artificially low results in patients with liver disease. PSA,Total (Free>4and<10) Reviewed date:06/22/2023 05:16:59 PM Interpretation: Performing Lab:[facility], [address] [place] [phone] Notes/Report: PSA,Total (Free>4and<10) 0.61 0.00-4.00 ng/mL A Free PSA was not performed: The percentage of Free PSA can be used to enhance the differentiation of prostate cancer from benign prostatic disease in subjects whose PSA levels are between 4.0 and 10.0 ng/mL. For subjects whose PSA levels are below 4.0 or above 10.0 ng/mL, the risk of prostate cancer is determined on the basis of the PSA alone. Therefore the % Free PSA is recommended only for those subjects whose PSA levels are between 4.0 and 10.0 ng/mL. PSA methodology: Ivory Alinity i Chemiluminescent Microparticle Immunoassay (CMIA) UA ClnCatch+Micro w/rflx Cul t Reviewed date:06/23/2023 06:45:41 PM Interpretation: Performing Lab:[facility], [address] [place] [phone] Notes/Report: Urine, Clean Catch Color Urine Yellow Appearance Urine Cloudy PH 5.0 5.0-9.0 Glucose Urine UA Negative Negative mg/dL Urine Blood Large (3+) Negative Specific Minier - Urine 1.020 1.005-1.025 Urine Protein 100 (2+) Neg-Trace mg/dL Urine Ketones Negative Negative mg/dL Nitrite Urine Negative Negative Leukocyte Esterase Urine Moderate (2+) Negative RBC Urine >20 0-2 /HPF WBC Urine >50 0-5 /HPF Squamous Epithelial Cell Urine 0-2 0-2 /HPF Bacteria Urine None Seen None Seen Hyaline Casts Urine 0-2 0-2 /LPF Occult Blood, Stool, Guaiac Reviewed date:06/29/2023 02:06:53 PM Interpretation:Negative Performing Lab: Notes/Report: Negative Occult Blood, Stool, Guaiac Neg Glucose, finger stick Reviewed date:06/29/2023 01:20:51 PM Interpretation: Performing Lab: Notes/Report: Value 171 Urine Culture Reviewed date:07/01/2023 04:44:15 PM Interpretation: Performing Lab:[facility], [address] [place] [phone] Notes/Report: Urine Culture No growth. UA ClnCatch+Micro w/rflx Cul t Reviewed date:06/29/2023 05:17:19 PM Interpretation: Performing Lab:[facility], [address] [place] [phone] Notes/Report: Urine, Clean Catch Color Urine Yellow Appearance Urine Clear PH 5.5 5.0-9.0 Glucose Urine UA Negative Negative mg/dL Urine Blood Moderate (2+) Negative Specific Minier - Urine 1.025 1.005-1.025 Urine Protein 30 (1+) Neg-Trace mg/dL Urine Ketones Negative Negative mg/dL Nitrite Urine Negative Negative Leukocyte Esterase Urine Moderate (2+) Negative RBC Urine 11-20 0-2 /HPF WBC Urine >50 0-5 /HPF Squamous Epithelial Cell Urine 0-2 0-2 /HPF Bacteria Urine None Seen None Seen Hyaline Casts Urine 0-2 0-2 /LPF Urinalysis and Microscopic Reviewed date:08/04/2023 12:52:54 PM Interpretation: Performing Lab:[facility], [address] [place] [phone] Notes/Report: Color Urine Yellow Appearance Urine Clear PH 5.5 5.0-9.0 Glucose Urine UA 500 Negative mg/dL Urine Blood Negative Negative Specific Minier - Urine 1.020 1.005-1.025 Urine Protein 30 (1+) Neg-Trace mg/dL Urine Ketones Trace Negative mg/dL Nitrite Urine Negative Negative Leukocyte Esterase Urine Small (1+) Negative RBC Urine 0-2 0-2 /HPF WBC Urine 21-50 0-5 /HPF Squamous Epithelial Cell Urine 0-2 0-2 /HPF Bacteria Urine None Seen None Seen Hyaline Casts Urine 0-2 0-2 /LPF Glucose, finger stick Reviewed date:10/23/2023 01:11:36 PM Interpretation: Performing Lab: Notes/Report: Value 158 Glucose, Whole Blood Reviewed date:01/26/2024 11:54:01 AM Interpretation: Performing Lab:[facility], [address] [place] [phone] Notes/Report: Glucose, Whole Blood 133 60-115 mg/dL METER # : [id number] Pathology Reviewed date:01/28/2024 03:51:31 PM Interpretation: Performing Lab:[facility], [address] [place] [phone] Notes/Report: Glucose, finger stick Reviewed date:02/22/2024 09:47:31 AM Interpretation: Performing Lab: Notes/Report: Value 159 Glucose, finger stick Reviewed date:04/15/2024 09:07:26 AM Interpretation: Performing Lab: Notes/Report: Value 125 REASON FOR REFERRAL No Information MEDICATIONS Medication SIG (Take, Route, Frequency, Duration) Notes Start Date End Date Status Ozempic (0.25 or 0.5 MG/DOSE) 2 MG/3ML as directed Subcutaneous 0.25 mg weekly fminth then .5mg weekly for 30 days 02/22/2024 Active Irbesartan-hydroCHLOROth iazide 150-12.5 MG TAKE ONE TABLET BY MOUTH EVERY DAY for 90 Active OneTouch Ultra Test TEST BLOOD GLUCOSE T WICE A DAY for 50 Active Metoprolol Succinate ER 50 MG TAKE ONE TABLET BY MOUTH EVERY DAY for 90 Active Fluticasone Propionate 50 MCG/ACT USE 1 SPRAY IN EACH NOSTRIL ONCE A DAY for 90 Active Atorvastatin Calcium 10 MG TAKE ONE TABLET BY MOUTH EVERY DAY for 90 Active Montelukast Sodium 10 MG TAKE ONE TABLET BY MOUTH EVERY EVENING for 90 Active Aspir-Low 81 MG 1 tablet Orally Once a day for 30 day(s) Active Valtrex 1 GM 2 tablet Orally ever y 12 hrs for 1 dose 05/07/2012 Not-Taking OneTouch Delica Lancing Dev as directed for 50 03/03/2013 Active Januvia 100 MG TAKE ONE TABLET BY M OUTH EVERY DAY Active Ozempic (1 MG/DOSE) 4 MG/3ML 1 mg Subcutaneous weekly for 30 days 04/15/2024 Active Finasteride 5 MG 1 tablet Orally Once a day Active Xyzal Allergy 24HR 5 MG 1 tablet in the evening Orally Once a day for 30 day(s) Active metFORMIN HCl 1000 MG TAKE ONE TABLET BY MOUTH TWICE A DAY WITH MEALS for 90 Active IMMUNIZATIONS Vaccine Route Administration Date Status Comme nts Flu Vaccine IM Intramuscular 03/14/2011 Administered Flu Vaccine Unknown 05/07/2012 Administered Prevnar 13 Unknown 05/07/2012 Administered PPSV23 (Pnemovax) Unknown 03/31/2005 Administered Flu Vaccine IM Intramuscular 02/25/2013 Administered PPSV23 (Pnemovax) IM Intramuscular 02/25/2013 Administered Flu Vaccine Unknown 03/24/2014 Administered [facility] T[facility]P IM Intramuscular 08/14/2014 Administered Flu Vaccine IM Intramuscular 02/11/2015 Administered pt herrera d vaccine at [facility] on [facility] Fluarix Quadrivalent IM Intramuscular 02/11/2016 Administered Shingles Unknown 03/29/2009 Administered Fluarix Quadrivalent IM Intramuscular 02/23/2017 Administered Shingrix IM Intramuscular 02/08/2018 Administered pt wa given the vaccine at [facility] on [facility]. Flu Vaccine Unknown 02/08/2018 Administered pt was give n the vaccine at [facility] on [facility]. Shingrix IM Intramuscular 05/17/2018 Administered pt was given the vaccine at [facility] [employer] in [place]. PPSV23 (Pnemovax) IM Intramuscular 09/10/2018 Administered Fluarix Quadrivalent IM Intramuscular 02/14/2019 Administered Covid Vaccine Unknown 07/02/2020 Administered Moderna SARS-COV-2 Moderna Unknown 04/26/2021 Administered [facility] SARS-COV-2 Moderna Unknown 06/14/2020 Administered SARS-COV-2 Moderna Unknown 07/12/2020 Administered Fluarix Quadrivalent Unknown 02/10/2022 Administered Influenza High Dose IM Intramuscular 02/06/2023 Administered Influenza High Dose IM Intramuscular 02/22/2024 Administered Influenza High Dose Unknown 03/16/2020 Pending [facility] SOCIAL HISTORY Tobacco Use: Social History Observation Description Date Details (start date - stop date) Never Smoker NA - NA Sex Assigned At : Social History Observation Description Sex Assigned At Unknown Tobacco Use/Smoking Question Answer Notes Patient is a nonsmoker Additional Findings: Tobacco Non-User Cu rrent non-smoker, currently using no form of tobacco Alcohol Screen Question Answer Notes Did you have a drink contain ing alcohol in the past year? Yes How often did you have a dri nk containing alcohol in the past year? Monthly or less (1 point) How many drinks did you have on a typical day when you were drinking in the past year? 1 or 2 drinks (0 point) How often did you have 6 or more drinks on one occasion in the past year? Never (0 point) Points 1 Interpretation Negative PROBLEMS Problem Type ICD Code Onset Dates Problem Status W/U Status Risk SNOMED Code Notes Problem Prostatism (N40.0) Active confirmed 114 97263 Problem Asthmatic bronchitis (J45.909) Active confirmed 339988222 Problem Essential hypertensi on (I10) Active confirmed 34788241 Problem Type 2 diabetes mellitus without complication (E11.9) Active confirmed 69992775 Problem Low HDL (under 40) (E78.6) Active confirmed 234990814 Problem Rising PSA level (R97.2) Active confirmed Biochemically recurrent prostate cancer (disorder) (73164444632460 1) Problem Irregular heart beat (I49.9) Active confirmed Irregular heart beat (241791569) Problem Sleep apnea, unspecified type (G47.30) Active confirmed 50091500 Problem Pure hypercholesterolemia (E78.00) Active confirmed 729950946 Problem Seasonal allergic rhinitis due to pollen (J30.1) Active confirmed 42652637 Problem Adenomatous polyp of colon, unspecified part of colon (D12.6) Active confirmed 654707012 Problem BMI 32.0-32.9,adult (Z68.32) Active confirmed 097066626 Problem Bilateral hearing loss, unspecified hearing loss type (H91.93) Active confirmed 65695288 VITAL SIGNS Blood pressure diastolic 70 mm Hg 04/15/2024 carol ght is down 5 pounds since 02-22-24 Height 70 in 04/15/2024 weight is down 5 pounds since 02-22-24 Blood pressure systolic 152 mm Hg 04/15/2024 weig ht is down 5 pounds since 02-22-24 Weight 204 lbs 04/15/2024 weight is down 5 pounds since 02-22-24 BMI 29.27 kg/m2 04/15/2024 weight is down 5 pounds since 02-22-24 PROCEDURES Procedure Date Ordered Date Performed Result Body Sit e Colonoscopy, Screening 01/26/2024 01/26/2024 pending biops y Encounters Encounter Location Date Provider Diagnosis Vini Mendoza MD [address] [place] [id number] 06/29/2023 Vini Mendoza Type 2 diabetes arabella itus without complication E11.9 ; Annual physical exam Z00.00 ; Pyuria R82.81 ; Essential hypertension I10 ; Pure hypercholesterolemia E78.00 ; Prostatism N40.0 ; Colon cancer screening Z12.11 and Depression screening Z13.31 Vini Mendoza MD [address] [place] [id number] 06/22/2023 Vini Mendoza Blood tests for rout ine general physical examination Z00.00 ; Essential hypertension I10 ; Pure hypercholesterolemia E78.00 and Prostatism N40.0 Vini Mendoza MD [address] [place] [id number] 08/04/2023 Vini Mendoza Type 2 diabetes arabella itus without complication E11.9 Vini Mendoza MD [address] [place] [id number] 10/23/2023 Vini Mendoza Type 2 diabetes arabella itus without complication E11.9 and Essential hypertension I10 Vini Mendoza MD [address] [place] [id number] 02/22/2024 Vini Mendoza Type 2 diabetes arabella itus without complication E11.9 and Encounter for immunization Z23 Vini Mendoza MD [address] [place] [id number] 04/15/2024 Vini Mendoza Type 2 diabetes arabella itus without complication E11.9 and Newly recognized murmur R01.1 Vini Mendoza MD [address] [place] [id number] 05/22/2023 Vini Mendoza Type 2 diabetes arabella itus without complication E11.9 and Pre-op evaluation Z01.818 Vini Mendoza MD [address] [place] [id number] 07/21/2023 Vini Mendoza MD [address] [place] [id number] 08/04/2023 Vini Mendoza ASSESSMENTS Encounter Date Diagnosis Assessment Notes Treatment Notes Treatment Clinical Notes 06/29/2023 Annual physical exam (ICD-10 - Z00.00) labs reviewed and discussed with patient 06/29/2023 Type 2 diabetes arabella itus without complication (ICD-10 - E11.9) stable, will continue current regiment 06/22/2023 Essential hypertensi on (ICD-10 - I10) 06/22/[address] ine general physical examination (ICD-10 - Z00.00) 08/04/2023 Type 2 diabetes arabella itus without complication (ICD-10 - E11.9) 10/23/2023 Essential hypertensi on (ICD-10 - I10) stable, will continue current regiment 10/23/2023 Type 2 diabetes arabella itus without complication (ICD-10 - E11.9) needs to get back on diet., will continue current regiment 02/22/2024 Encounter for immunization (ICD-10 - Z23) flu vaccine administered 02/22/2024 Type 2 diabetes arabella itus without complication (ICD-10 - E11.9) patient verbalized nderstanding of medication and directions for use 04/15/2024 Type 2 diabetes arabella itus without complication (ICD-10 - E11.9) patient verbalized understanding of medication and directions for use 04/15/2024 Newly recognized mur mur (ICD-10 - R01.1) pending diagnostic testing, order faxed to [facility] dept 05/22/2023 Pre-op evaluation (I CD-10 - Z01.818) patient healthy. no need for any further evaluation prior to the upcoming surgery. low risk for the upcoming surgery/ecg with no significant findings 05/22/2023 Type 2 diabetes arabella itus without complication (ICD-10 - E11.9) 06/29/2023 Pyuria (ICD-10 - R82.81) 06/22/2023 Pure hypercholestero lemia (ICD-10 - E78.00) 06/29/2023 Essential hypertensi on (ICD-10 - I10) stable, will continue current regiment 06/22/2023 Prostatism (ICD-10 - N40.0) 06/29/2023 Pure hypercholestero lemia (ICD-10 - E78.00) stable, will continue current regiment 06/29/2023 Prostatism (ICD-10 - N40.0) stable, will continue current regiment 06/29/2023 Colon cancer screeni ng (ICD-10 - Z12.11) guaiac negative 06/29/2023 Depression screening (ICD-10 - Z13.31) negative screen PLAN OF TREATMENT Pending Test Test Name Order Date Electrocardiogram (EKG) 02/26/2017 Occult Blood, Stool, Guaiac 03/05/2018 CT ABD & PELVIS WITH IV CONT ONLY 2022 CT ABD & PELVIS WWO CONTRAST 11/21/2022 ECHO 04/15/2024 US abdomen limited 06/05/2022 Future Test Test Name Order Date US abdomen limited 01/04/2023 Next Appt Details Provider Name:Vini Karina Danis ier, 06/24/2024 07:45:00 AM, [address] [place] [address], [address], [place], [place], [phone], Provider Name:Vini Moscoso ier, 07/01/2024 01:00:00 PM, [address] [facility], [address], [place], [place], [phone], Insurance Providers Payer Name Payer Address Payer Phone Subscriber Number Group Number Insured Name Patient Relationship to Insured Coverage Start Date Coverage End Date [employer] MEDICARE ADVANTAGE [address] [place] [id number] Deacon Romo Self - patient is the insured [facility] Purple [address] [place] [phone] [id number] Deacon Romo Self - patient is the insured [employer] [address] [place] [address] [id number] JpDeacon martinez Self - patient is the insured MEDICAL (GENERAL) HISTORY Medical History History ICD Code colonoscopy 07/2014 repeat in 3 years; colonoscopy 01/02/16 w/ Dr. Justin; colonoscopy done 02/11/[address] Justin, no futher testing needed.01/26/24 Colonoscopy, pending biopsy
--- OUTSIDE RECORDS SUMMARY | 2024-05-10 23:27 | XMS_ITS | Encounter Summary ---
Author Name [facility] Organization [facility] Address [address] [place] [address] Care Team Providers Care Director Wholesale Name Role Phone MISSY MALLORY Primary Care [...] Name Patient's Relationship to Policy Martínez AETNA [facility] (WNR) MEDICARE ADVANTAGE MCR ([facility]) Jun 01, 2023 [id number] [phone] TOMEKA OLIVIER PATIENT AETNA [facility] (WNR) MEDICARE ADVANTAGE MCR (R) Jun 01, 2021 [id number] [phone] TOMEKA OLIVIER PATIENT [employer]ETNA [facility] (WNR) MEDICARE ADVANTAGE [facility] (WNR) Jun 01, 2019 [id number] ZHAOTOMEKA ROBERTSON PATIENT FOR LIFE TFL* Jun 01, 2017 [id number] ZHAOAILYN TOMEKA PATIENT [facility] (WNR) MEDICARE ADVANTAGE [facility] (R) Jun 01, 2014 [id number] TOMEKA OLIVIER PATIENT Selected Encounter This section includes the information on record at [facility] for the Encounter. Date/Time Encounter Type Encounter Description Reason Pro vider Source October 09, 2023 12:00 AM Outpatient Encounter EVENT (HISTORICAL) IHE Encounter Template Text not used by [place] Plan of Treatment: Future Appointments (+ 6 months) and Future Tests (+/- 45 days) The Plan of Treatment section includes future care activities for the patient from all [place] treatmentfacilities. This section includes future appointments and future orders which are active, pending or scheduled. Future Appointments This section includes appointments that were scheduled to occur 6 months from the date of the Encounter, up to a maximum of 20 appointments. The data comes from all [place] treatment facilities. Appointment Date/Time Appointment Type Appointme nt Facility Name Nov 27, 2023 09:00 AM [facility] Dec 10, 2023 08:00 AM AMBULATORY - [facility] MEDICIN [facility] Social History: Smoking Status (Most current) and Tobacco Use (All prior to encounter date) This section includes the most current, and the historical, smoking and tobacco- related health factors from the VA facility where the Encounter took place. Current Smoking Status This section includes the most current smoking, or tobacco-related health factor, from the [facility] facility where the Encounter took place. Date/Time Current Smoking Status Comment Smith ity Nov 26, 2022 09:30 AM VA-TOBACCO NEVER USED [facility] [place] Tobacco Use History This section includes a history of the smoking, or tobacco-related health factors, that were collected on or before the date of the Encounter. The data comes from the [place] facility where the Encounter took place. Date/Time Smoking Status/Tobacco Use Comment F acility Nov 26, 2021 09:00 AM VA-TOBACCO NEVER USED [facility] [place] May 01, 2020 11:00 AM VA-TOBACCO NEVER USED [facility] [place] Apr 19, 2019 02:33 PM VA-TOBACCO FORMER USER [facility] Apr 19, 2019 02:33 PM VA-TOBACCO QUIT 15 YRS OR MORE [facility] [place]
--- OUTSIDE RECORDS SUMMARY | 2024-05-10 23:27 | XMS_ITS | Encounter Summary ---
Author Name [facility] [place] [facility] [place] Organization [facility] [place] Address [address] [place] [address] Care Team Providers Care Linux Network Administrator Name Role Phone MISSY MALLORY Primary [...] Name Patient's Relationship to Policy Martínez [employer]ETNA [facility] (WNR) MEDICARE ADVANTAGE MCR ([facility]) Jun 01, 2023 [id number] [phone] TOMEKA OLIVIER PATIENT [employer] [facility] (WNR) MEDICARE ADVANTAGE MCR (R) Jun 01, 2021 [id number] [phone] TOMEKA OLIVIER PATIENT [employer] [facility] (WNR) MEDICARE ADVANTAGE [facility] (WNR) Jun 01, 2019 [id number] ZHAOTOMEKA ROBERTSON PATIENT FOR LIFE TFL* Jun 01, 2017 [id number] ZHAOAILYN TOMEKA PATIENT [facility] (WNR) MEDICARE ADVANTAGE [facility] (R) Jun 01, 2014 [id number] TOMEKA OLIVIER PATIENT Selected Encounter This section includes the information on record at [place] for the Encounter. Date/Time Encounter Type Encounter Description Reason Pro vider Source Jul 02, 2023 12:00 AM Outpatient Encounter EVENT (HISTORICAL) IHE Encounter Template Text not used by [place] Plan of Treatment: Future Appointments (+ 6 months) and Future Tests (+/- 45 days) The Plan of Treatment section includes future care activities for the patient from all [place] treatmentfacilities. This section includes future appointments and future orders which are active, pending or scheduled. Future Appointments This section includes appointments that were scheduled to occur 6 months from the date of the Encounter, up to a maximum of 20 appointments. The data comes from all [place] treatment facilities. Appointment Date/Time Appointment Type Appointme nt Facility Name Nov 27, 2023 09:00 AM AMBULATORY - MEDICINE [facility] [place] [facility] Dec 10, 2023 08:00 AM AMBULATORY - REHAB MEDICIN E [facility] [place] [facility] Social History: Smoking Status (Most current) and [...] place. Date/Time Current Smoking Status Comment Smith carter Nov 26, 2022 09:30 AM VA-TOBACCO NEVER USED [facility] [place] [facility] Tobacco Use History This section includes a history of the smoking, or tobacco-related health factors, that were collected on or before the date of the Encounter. The data comes from the [place] facility where the Encounter took place. Date/Time Smoking Status/Tobacco Use Comment F acility Nov 26, 2021 09:00 AM VA-TOBACCO NEVER USED [facility] [place] [facility] May 01, 2020 11:00 AM VA-TOBACCO NEVER USED [facility] [place] [facility] Apr 19, 2019 02:33 PM VA-TOBACCO FORMER USER [facility] [place] [facility] Apr 19, 2019 02:33 PM VA-TOBACCO QUIT 15 YRS OR MORE [facility] [place] [facility]
--- OUTSIDE RECORDS SUMMARY | 2024-05-10 23:27 | XMS_ITS ---
Author Organization Vini Mendoza MD Address [address] [place] [phone] Care Team Providers Care Associate Director Financial Aid Name Role Phone Vini Mendoza Primary Care Provider ALLERGIES No Known Allergies RESULTS Component Value Reference Range Notes Glucose, finger stick Reviewed date:04/15/2024 09:07:26 AM Interpretation: Performing Lab: Notes/Report: Value 125 REASON FOR VISIT 2 MO F/U MEDICATIONS Medication SIG (Take, Route, [...] Subcutaneous weekly for 30 days 04/15/2024 Active OneTouch Ultra Test TEST BLOOD GLUCOSE T WICE A DAY for 50 Active Atorvastatin Calcium 10 MG TAKE ONE TABLET BY MOUTH EVERY DAY for 90 Active Montelukast Sodium 10 MG TAKE ONE TABLET BY MOUTH EVERY EVENING for 90 Active metFORMIN HCl 1000 MG TAKE ONE TABLET BY MOUTH TWICE A DAY WITH MEALS Active Ozempic (0.25 or 0.5 MG/DOSE) 2 MG/3ML as directed Subcutaneous 0.25 mg weekly fminth then .5mg weekly for 30 days 02/22/2024 Active Irbesartan-hydroCHLOROth iazide 150-12.5 MG TAKE ONE TABLET BY MOUTH EVERY DAY for 90 Active Metoprolol Succinate ER 50 MG TAKE ONE TABLET BY MOUTH EVERY DAY for 90 Active Fluticasone Propionate 50 MCG/ACT USE 1 SPRAY IN EACH NOSTRIL ONCE A DAY for 90 Active Aspir-Low 81 MG 1 tablet Orally Once a day for 30 day(s) Active Finasteride 5 MG 1 tablet Orally Once a day Active Xyzal Allergy 24HR 5 MG 1 tablet in the evening Orally Once a day for 30 day(s) Active VITAL SIGNS BMI 29.27 kg/m2 04/15/2024 Blood pressure systolic 152 mm Hg 04/15/20 24 Blood pressure diastolic 70 mm Hg 024 Height 70 in 04/15/2024 Weight 204 lbs 04/15/2024 weight is down 5 pounds [facility] 02-22-24 Encounters Encounter Location Date Provider Diagnosis Vini Mendoza MD [address] [place] [address] [place] [phone] 04/15/2024 Vini Mendoza Type 2 diabetes mellitus without complication E11.9 and Newly recognized murmur R01.1 ASSESSMENTS Encounter Date Diagnosis Assessment Notes Treatment Notes Treatment Clinical Notes 04/15/2024 Type 2 diabetes mellitus without complication (ICD-10 - E11.9) patient verbalized understanding of medication and directions for use 04/15/2024 Newly recognized murmur (ICD-10 - R01.1) pending diagnostic testing, order faxed to [facility] dept PLAN OF TREATMENT Medication Medication Name Sig Start Date Stop Date Notes Ozempic (1 MG/DOSE) 4 MG/3ML 1 mg Subcut aneous weekly for 30 days 04/15/2024 Treatment Notes Assessment Notes Type 2 diabetes mellitus wit hout complication patient verbalized understanding of medication and directions for use Newly recognized murmur pending diagnost ic testing, order faxed to [facility] dept Pending Test Test Name Order Date ECHO 04/15/2024 Next Appt Details Provider Name:Vini herzog, 06/24/2024 07:45:00 AM, [address], [address], [place], [phone], Provider Name:Vini herzog, 07/01/2024 01:00:00 PM, [address], [address], [place], [phone], Progress Notes * Examination Category Sub-Category Detail Notes General Examination GENERAL APPEARANCE: alert, w ell hydrated, in no distress HEAD: normocephalic HEART: abnormal with a new barking systolic murmur LUNGS: no wheezes, rales, r honchi , good air movement , clear to auscultation bilaterally SKIN: good turgor
== END ==
LOC: HO.CARD 07:38
PROVIDERS: PCP Internal Medicine; Visit Provider Internal Medicine
DX: R00.1 Bradycardia, unspecified (principal)
CPT/HCPCS: 93306

== ENCOUNTER → 2024-05-05 07:43 | Outpatient (BNV) | payer MEDICARE, OTHER, SELFPAY | PROVIDERS: PCP Internal Medicine; Visit Provider Internal Medicine Cardiovascular Disease | DX: I35.0 Nonrheumatic aortic (valve) stenosis (principal) | CPT/HCPCS: 93306 ==

== ENCOUNTER 2024-06-24 10:46 | Outpatient (REF) | payer MEDICARE, OTHER, SELFPAY ==
[2024-06-24 10:52] LABS: MANUAL DIFF FLAG NO
[2024-06-24 11:19] LABS: Appearance Urine Clear; Color Urine Yellow; Glucose Urine UA Negative (Negative); Leukocyte Esterase Urine Negative (Negative); Nitrite Urine Negative (Negative); PH 5.5 (5.0-9.0); Specific Gravity - Urine >= 1.030 (1.005-1.025); Urine Blood Negative (Negative); Urine Ketones Trace mg/dL (Negative); Urine Protein Trace mg/dL (Neg-Trace)
[2024-06-24 11:23] LABS: Bacteria Urine None Seen (None Seen); Basophils Percent Auto 0.4 % (0-2); Eosinophils Absolute Auto 0.1 X10*3/uL (0.0-0.4); Eosinophils Percent Auto 1.4 % (0-4); Hematocrit 35.1 % (42.0-52.0); Hemoglobin 11.2 g/dl (14.0-18.0); Hyaline Casts Urine 0-2 /LPF (0-2); Imm Gran Abs Auto 0.03 X10*3/uL (0.00-0.03); Imm Gran Pct Auto 0.4 % (0.0-0.4); Lymphocytes Percent Auto 24.9 % (20-40); Mean Corpuscular HGB Conc 31.9 g/dl (31.0-36.0); Mean Corpuscular Hemoglobin 28.1 pg (27.0-33.0); Mean Platelet Volume 11.2 fL (9.4-12.4); Monocytes Absolute Auto 0.7 X10*3/uL (0.1-1.2); Monocytes Percent Auto 8.4 % (2-11); Neutrophils Absolute Auto 5.1 x10*3/uL (2.0-8.3); Neutrophils Percent Auto 64.5 % (45-73); Platelet Count 211 X10*3/uL (160-400); RBC Urine 0-2 /HPF (0-2); Red Blood Count 3.99 X10*6/uL (4.60-5.80); Squamous Epithelial Cell Urine 0-2 /HPF (0-2); WBC Urine 0-5 /HPF (0-5); White Blood Count 7.9 X10*3/uL (4.8-10.8)
[2024-06-24 12:00] LABS: Estimated Average Glucose 151 mg/dL; Hemoglobin A1C 150.0411 umol/L; Hemoglobin A1c % 6.9 % (<6.0); PSA,Total (Free>4and<10) 0.67 ng/mL (0.00-4.00); Total Hemoglobin (HGBA1C) 2881.0383 umol/L
--- OUTSIDE RECORDS SUMMARY | 2024-06-24 12:24 | XMS_ITS ---
Author Organization Vini Mendoza MD Address [address] [place] [phone] Care Team Providers Care Galley Cook Name Role Phone Vini Mendoza Primary Care Provider Allergies No Known Allergies REASON FOR VISIT coughing, congested x 1week tested negative for Covid 06-09-24, Video [phone] Medications Medication SIG (Take, Route, Frequency, Duration) Notes Start Date End Date Status Ozempic (0.25 or 0.5 MG/DOSE) 2 MG/3ML as directed Subcutaneous 0.25 mg weekly fminth then .5mg weekly for 30 days 02/22/2024 Active Januvia 100 MG TAKE ONE TABLET BY M OUTH EVERY DAY Active Ozempic (1 MG/DOSE) 4 MG/3ML 1 mg Subcutaneous weekly for 30 days 04/15/2024 Active metFORMIN HCl 1000 MG TAKE ONE TABLET BY MOUTH TWICE A DAY WITH MEALS for 90 Active Valtrex 1 GM 2 tablet Orally ever y 12 hrs for 1 dose 05/07/2012 Not-Taking Irbesartan-hydroCHLOROth iazide 150-12.5 MG TAKE ONE TABLET BY MOUTH EVERY DAY for 90 Active Fluticasone Propionate 50 MCG/ACT USE 1 SPRAY IN EACH NOSTRIL ONCE A DAY for 90 Active Metoprolol Succinate ER 50 MG TAKE ONE TABLET BY MOUTH EVERY DAY for 90 Active Montelukast Sodium 10 MG TAKE ONE TABLET BY MOUTH EVERY EVENING for 90 Active Atorvastatin Calcium 10 MG TAKE ONE TABLET BY MOUTH EVERY DAY for 90 Active OneTouch Ultra Test TEST BLOOD GLUCOSE T WICE A DAY for 50 Active OneTouch Delica Lancing Dev as directed for 50 03/03/2013 Active Aspir-Low 81 MG 1 tablet Orally Once a day for 30 day(s) Active Xyzal Allergy 24HR 5 MG 1 tablet in the evening Orally Once a day for 30 day(s) Active Finasteride 5 MG 1 tablet Orally Once a day Active Vital Signs Height 70 in 06/10/2024 weight is 194 BP not taken n o temp Encounters Encounter Location Date Provider Diagnosis Vini Mendoza MD [address] [place] [address] [place] [phone] 06/10/2024 Vini Mendoza Viral URI J06.9 Assessments Encounter Date Diagnosis (ICD Code) Assessment Notes Treatment Notes Treatment Clinical Notes Section Notes 06/10/2024 Viral URI (ICD-10 - J06.9) is getting better. no indication for antibiotics. just to use robitussin or mucinex and if not better in a week to call again Plan Of Treatment Treatment Notes Assessment Notes Viral URI is getting better. n o indication for antibiotics. just to use robitussin or mucinex and if not better in a week to call again Next Appt Details Provider Name:Vini herzog, 07/01/2024 01:00:00 PM, [address] [place] [address], [address], [place], [place], [phone], Progress Notes * Audi ROMO:[birth year] (83 yo M)Acc No.[id number]:06/10/2024 Patient:?Deacon Romo Provider:?Vini Mendoza MD :1940???Age:83 Y???Sex:Male Isaiah e:06/10/2024 Address:[address] [place], [place] [address]MIKE, [phone] Subjective: * Chief Complaints: * ???coughing, congested x 1we ek tested negative for Covid 06-09-24Video [phone] * HPI: ???Symptom(s):?Telehealth?Location of provider rendering services:?[address], [address],?Location of patient:?at address listed in demographics for today's visit,?Patient identification confirmed using:?Name, , SSN, Insurance information,?Telehealth method:?Video conference where patient is visible to the provider of care,?Consent:?Patient verbally consented to treatment, Patient verbally consented to billing insurance company, Patient informed of any privacy concerns related to method of visit.? patient is a 83 yo male video telehealth 11 days had runny nose and headache. all better except the cough in morning. tested negative for covid. * ROS:?General/Constitutional:?Denies?Chills.?Denies?Fatigue.?Denies?Fever.?Denies?Headache.?ENT:?Patient denies?decreased sense of smell , any loss of taste , sore throat.?Denies?Sore throat.?Respiratory:?Admits?Cough.?Denies?Shortness of breath at rest.?Denies?Shortness of breath with exertion.?Admits?Sputum production.?Gastrointestinal:?Denies?Diarrhea.?Denies?Nausea.?Musculoskeletal:?Patient denies?muscle aches.?Peripheral Vascular:?Patient denies?red and blue toes.? * Medical History:? * Surgical History:? * Hospitalization/Major Diagno stic Procedure:? * Medications:?TakingOneTouch Ultra Test Strip TEST BLOOD GLUCOSE TWICE A DAY OneTouch Delica Lancing Dev Miscellaneous as directed Aspir-Low 81 MG Tablet Delayed Release 1 tablet Orally Once a dayXyzal Allergy 24HR 5 MG Tablet 1 tablet in the evening Orally Once a dayFinasteride 5 MG Tablet 1 tablet Orally Once a dayFluticasone Propionate 50 MCG/ACT Suspension USE 1 SPRAY IN EACH NOSTRIL ONCE A DAY Metoprolol Succinate ER 50 MG Tablet Extended Release 24 Hour TAKE ONE TABLET BY MOUTH EVERY DAY Montelukast Sodium 10 MG Tablet TAKE ONE TABLET BY MOUTH EVERY EVENING Atorvastatin Calcium 10 MG Tablet TAKE ONE TABLET BY MOUTH EVERY DAY Irbesartan-hydroCHLOROthiazide 150- 12.5 MG Tablet TAKE ONE TABLET BY MOUTH EVERY DAY Ozempic (0.25 or 0.5 MG/DOSE) 2 MG/3ML Solution Pen-injector as directed Subcutaneous 0.25 mg weekly fminth then .5mg weeklyJanuvia 100 MG Tablet TAKE ONE TABLET BY MOUTH EVERY DAY Ozempic (1 MG/DOSE) 4 MG/3ML Solution Pen-injector 1 mg Subcutaneous weeklymetFORMIN HCl 1000 MG Tablet TAKE ONE TABLET BY MOUTH TWICE A DAY WITH MEALS Taking OneTouch Ultra Test Strip TEST BLOOD GLUCOSE TWICE A DAY Taking OneTouch Delica Lancing Dev Miscellaneous as directed Taking Aspir-Low 81 MG Tablet Delayed Release 1 tablet Orally Once a dayTaking Xyzal Allergy 24HR 5 MG Tablet 1 tablet in the evening Orally Once a dayTaking Finasteride 5 MG Tablet 1 tablet Orally Once a dayTaking Fluticasone Propionate 50 MCG/ACT Suspension USE 1 SPRAY IN EACH NOSTRIL ONCE A DAY Taking Metoprolol Succinate ER 50 MG Tablet Extended Release 24 Hour TAKE ONE TABLET BY MOUTH EVERY DAY Taking Montelukast Sodium 10 MG Tablet TAKE ONE TABLET BY MOUTH EVERY EVENING Taking Atorvastatin Calcium 10 MG Tablet TAKE ONE TABLET BY MOUTH EVERY DAY Taking Irbesartan-hydroCHLOROthiazide 150-12.5 MG Tablet TAKE ONE TABLET BY MOUTH EVERY DAY Taking Ozempic (0.25 or 0.5 MG/DOSE) 2 MG/3ML Solution Pen-injector as directed Subcutaneous 0.25 mg weekly fminth then .5mg weeklyTaking Januvia 100 MG Tablet TAKE ONE TABLET BY MOUTH EVERY DAY Taking Ozempic (1 MG/DOSE) 4 MG/3ML Solution Pen-injector 1 mg Subcutaneous weeklyTaking metFORMIN HCl 1000 MG Tablet TAKE ONE TABLET BY MOUTH TWICE A DAY WITH MEALS Not-Taking/PRNValtrex 1 GM Tablet 2 tablet Orally every 12 hrsMedication List reviewed and reconciled with the patientNot-Taking/PRN Valtrex 1 GM Tablet 2 tablet Orally every 12 hrsMedication List reviewed and reconciled with the patient * Allergies:?N.K.D.A.yes[Aller gies Verified] Objective: * Vitals:?Ht: 70 weight is 194 BP not taken no temp. * Examination: ???General Examination: ?GENERAL APPEARANCE:?normal.? Assessment: * Assessment: 1.?Viral URI - J06.9 (Primar y)? Plan: * Treatment: * Procedure Codes:? * * Sign off status: Completed true * Provider:?Vini Mendoza MD Date:?0 06/10/2024 Generated for Meg brenner/Min/eTmamadousmitting on:?06/24/2024 12:24 PM EST History and Physical Notes * HPI (History of Present Illness) Category Sub-Category Detail Notes Category Not es Symptom(s) Telehealth Location of [facility] rendering services:: [address], [address] patient is a 83 yo male video telehealth 11 days had runny nose and headache. all better except the cough in morning. tested negative for covid Location of patient:: at address listed in demographics for today's visit Patient identification confirmed using:: Name, , SSN, Insurance information Telehealth method:: Video co nference where patient is visible to the provider of care Consent:: Patient verbally c onsented to treatment, Patient verbally consented to billing insurance company, Patient informed of any privacy concerns related to method of visit Examination Category Sub-Category Detail Notes Category Not es General Examination GENERAL APPEARANCE: normal
--- OUTSIDE RECORDS SUMMARY | 2024-06-24 12:24 | XMS_ITS ---
Author Organization [facility] Address [address] [place] [address] Care Team Providers Care Hazmat Cdl A Driver Name Role Phone Vini Mendoza MD Primary Care Provider Jennifer Justin Jr, Cedrick Blank REASON FOR VISIT screening Encounters Encounter Location Date Provider Diagnosis [facility] Outpatient [address] [place] [phone] 01/26/2024 Cedrick Justin Jr Colon cancer screening [...] Provider Name:Cedrick licona Jr, 01/25/2025 09:20:00 AM, [address] [place] [address], [address], [place], [phone],
--- OUTSIDE RECORDS SUMMARY | 2024-06-24 12:25 | XMS_ITS ---
Author Organization [facility] Address [address] [place] [address] Care Team Providers Care Spud Sorter Name Role Phone Vini Mendoza MD Primary Care Provider Cedrick Becerra Jr Unavailable [phone] ALLERGIES Allergen (clinical drug ingredient) Drug/Non Drug [...] Problem FH: colon cancer (Z80.0) Active confirmed [id number] VITAL SIGNS BMI 32.22 kg/m2 12/09/2023 Blood pressure systolic 000 mm Hg 12/09/19 24 Blood pressure diastolic 00 mm Hg 024 Height 69.5 in 12/09/2023 Temperature 97.7 degrees Fahrenheit 12/09/19 Weight 221 lb 6 oz lbs 12/09/2023 Encounters Encounter Location Date Provider Diagnosis [facility] [address] [place] [phone] 12/09/2023 Cedrick Justin Jr Colon cancer screening [...] Name:Cedrick licona Jr, 01/25/2025 09:20:00 AM, [address], [address], [place], [phone], Progress Notes * Examination Category Sub-Category Detail [...]
--- OUTSIDE RECORDS SUMMARY | 2024-06-24 12:25 | XMS_ITS | Encounter Summary ---
Author Name [facility] [place] [place] Organization [facility] [place] Address [address] [place] [address] Care Team Providers Care Clinical Services Specialist Name Role Phone MISSY MALLORY Primary Care [...] Name Patient's Relationship to Policy Martínez [employer] [facility] (WNR) MEDICARE ADVANTAGE MCR ([facility]) Jun 01, 2023 [id number] [phone] TOMEKA OLIVIER PATIENT [employer] [facility] (WNR) MEDICARE ADVANTAGE MCR ([facility]) Jun 01, 2021 [id number] TOMEKA OLIVIER PATIENT [employer] [facility] (WNR) MEDICARE ADVANTAGE MCR (R) Jun 01, 2019 [id number] ZHAOTOMEKA ROBERTSON PATIENT FOR LIFE TFL* Jun 01, 2017 [id number] CHARLINE TOMEKA PATIENT [facility] (WNR) MEDICARE ADVANTAGE [facility] ([facility]) Jun 01, 2014 [id number] [phone] CHARLINE TOMEKA PATIENT Selected Encounter This section includes the information on record at [place] for the Encounter. Date/Time Encounter Type Encounter Description Reason Provider Source Dec 10, 2023 08:00 AM HEARING AID FITTING/CHECKIN G AUDIOLOGY ICD-10-CM Z46.1 Encounter for fitting and adjustment of hearing aid DEVANTE DEL ROSARIO IHE Encounter Template Text not used by [place] Assessments - Encounter Diagnoses This section includes the primary and secondary diagnoses documented for the Encounter. Date/Time Primary/Secondary Diagnosis Diagnosis Name Provider Source Dec 10, 2023 08:22 AM PRIMARY Encounter for fitting and adjustment of hearing aid DEVANTE DEL ROSARIO [facility] [place] [facility] Dec 10, 2023 08:22 AM SECONDARY Sensorineural hearing loss, bilateral MIGUEL ÁNGELDEVANTE Rebecca [facility] [place] [facility] Social History: Smoking Status (Most current) and Tobacco Use (All prior to encounter date) This section includes the most current, and the historical, smoking and tobacco- related health factors from the [place] facility where the Encounter took place. Current Smoking Status This section includes the most current smoking, or tobacco-related health factor, from the [place] facility where the Encounter took place. Date/Time Current Smoking Status Comment Facil ity Nov 27, 2023 09:00 AM VA-TOBACCO FORMER USER [facility] [place] [facility] Tobacco Use History This section includes a history of the smoking, or tobacco-related health factors, that were collected on or before the date of the Encounter. The data comes from the [place] facility where the Encounter took place. Date/Time Smoking Status/Tobacco Use Comment F acility Nov 27, 2023 09:00 AM VA-TOBACCO QUIT 15 YRS OR MORE [facility] [place] [facility] Nov 26, 2022 09:30 AM VA-TOBACCO NEVER USED [facility] [place] [facility] Nov 26, 2021 09:00 AM VA-TOBACCO NEVER USED [facility] [place] [facility] May 01, 2020 11:00 AM VA-TOBACCO NEVER USED [facility] [place] [facility] Apr 19, 2019 02:33 PM VA-TOBACCO FORMER USER [facility] [place] [facility] Apr 19, 2019 02:33 PM VA-TOBACCO QUIT 15 YRS OR MORE [facility] Encounter Notes: All associated encounter notes This section contains the clinical notes associated to the Encounter. Date/Time Encounter Note(s) Provider Source Dec 10, 2023 07:48 AM AUDIOLOGY E & M NO TE: LOCAL TITLE: AUDIOLOGY CLINIC STANDARD TITLE: AUDIOLOGY E & M NOTE DATE OF NOTE: DEC 10, 2023@07:48 ENTRY DATE: DEC 10, 2023@07:48:52 AUTHOR: DEVANTE DEL ROSARIO EXP COSIGNER: URGENCY: STATUS: COMPLETED Steen has a history of bilateral sensorineural hearing loss. He was seen on 12-10-23 for hearing aid follow up regarding his [facility]. He reports feedback and this is heard today. He reports he got a new iPhone and does not know how to pair it to his hearing aids. He notes that he cannot use the TV device since getting the new phone. Otoscopy is [facility] [place]. The hearing aids were connected to [facility] and the feedback test was performed. Recommended automatic adjustments were applied. This seemed to resolve the feedback and reported good sound quality. Assisted with pairing to his phone. It was explained that now he should be able to access the TV stream with the mariano. If problems with connectivity persist, he was advised to call 's tech support at [facility]. He reports in the past, he tried this and he was advised he had to pay for that service- he was instructed to call the clinic if he is told that again. will contact the clinic as needed. /estefany/ Roberta SHULTZ, [facility]3]-A STAFF JOB DEVELOPER FOR [employer] Signed: 12/10/2023 08:24 DEVANTE DEL ROSARIO [facility]
--- OUTSIDE RECORDS SUMMARY | 2024-06-24 12:25 | XMS_ITS | Encounter Summary ---
Author Name [facility] [place] [facility] [place] Organization [facility] [place] [facility] [place] Address [address] [place] [address] Care Team Providers Care Clinical Laboratory Science Professor Name Role Phone MISSY MALLORY Primary Care [...] Martínez's Name Patient's Relationship to Policy [facility]ínez [facility]) MEDICARE ADVANTAGE MCR ([facility]) Jun 01, 2023 [id number] [phone] TOMEKA OLIVIER PATIENT LUIS [facility] (WNR) MEDICARE ADVANTAGE MCR ([facility]) Jun 01, 2021 [id number] [phone] TOMEKA OLIVIER PATIENT [facility] ([facility]) MEDICARE [facility] (R) Jun 01, 2019 [id number] TOMEKA OLIVIER PATIENT FOR LIFE TFL* Jun 01, 2017 [id number] CHARLINE TOMEKA PATIENT [facility] (WN) MEDICARE ADVANTAGE [facility] ([facility]) Jun 01, 2014 [id number] [phone] TOMEKA OLIVIER PATIENT Selected Encounter This section includes the information on record at [place] for the Encounter. Date/Time Encounter Type Encounter Description Reason Provider Source Nov 27, 2023 09:00 AM OFFICE O/P EST MOD 30 MIN PRIMARY CARE/MEDICINE ICD-10-CM I10 Essential (primary) hypertension MOHAMUD,MISSY VIJAYA E Encounter Template Text not used by [place] Assessments - Encounter Diagnoses This section includes the primary and secondary diagnoses documented for the Encounter. Date/Time Primary/Secondary Diagnosis Diagnosis Name Provider Source Nov 27, 2023 09:42 AM PRIMARY Essential (primary) hypertension MOHAMUDMISSY [facility] [place] [facility] Nov 27, 2023 09:42 AM SECONDARY Benign prostatic hyperplasia without lower urinry tract symp MOHAMUDOTILIAA VIJAYA [facility] [place] [facility] Nov 27, 2023 09:42 AM SECONDARY Gross hematuria MOHAMUDOTILIAA VIJAYA [facility] [place] [facility] Nov 27, 2023 09:42 AM SECONDARY Hyperlipidemia, unspecified MOHAMUD,MISSY VIJAYA [facility] [place] [facility] Nov 27, 2023 09:42 AM SECONDARY Type 2 diabetes mellitus without complications MOHAMUD,MISSY VIJAYA [facility] [place] [facility] Plan of Treatment: Future Appointments (+ 6 [...] REHAB MEDICIN E [facility] [place] [facility] Vital Signs: All taken on the encounter date This section contains inpatient and outpatient Vital Signs collected on the date of the Encounter. Date/Time Temperature Pulse Blood Pressure Respiratory Rate SP02 Pain Height Weight Body Mass Index Source Nov 27, 2023 09:00 AM 60 139/73 [facility] [place] [facility] Nov 27, 2023 08:57 AM 220 32 [facility] [place] [facility] Nov 27, 2023 08:49 AM 98.2 61 146/74 16 95 0 [facility] [place] [facility] Social History: Smoking Status (Most current) and Tobacco Use (All prior to encounter date) This section includes the most current, and the historical, smoking and tobacco- related health factors from the [place] facility where the Encounter took place. Current Smoking Status This section includes the most current smoking, or tobacco-related health factor, from the [place] facility where the Encounter took place. Date/Time Current Smoking Status Comment Facil ity Nov 27, 2023 09:00 AM VA-TOBACCO FORMER USER [place] [facility] [place] [facility] Tobacco Use History This section includes a history of the smoking, or tobacco-related health factors, that were collected on or before the date of the Encounter. The data comes from the [place] facility where the Encounter took place. Date/Time Smoking Status/Tobacco Use Comment F acility Nov 27, 2023 09:00 AM VA-TOBACCO QUIT 15 YRS OR MORE [facility] [place] [facility] Nov 26, 2022 09:30 AM VA-TOBACCO NEVER USED [facility] [place] [facility] Nov 26, 2021 09:00 AM VA-TOBACCO NEVER USED [facility] [place] [facility] May 01, 2020 11:00 AM VA-TOBACCO NEVER USED [facility] [place] [facility] Apr 19, 2019 02:33 PM VA-TOBACCO FORMER USER [facility] [place] [facility] Apr 19, 2019 02:33 PM VA-TOBACCO QUIT 15 YRS OR MORE [facility] [place] [facility] Encounter Notes: All associated encounter [...] his Primary care through Dr Mendoza in [place] Gross hematuria Follows with urology in [place] and now on a medication he is [...] essential hypertension 2. Diabetes Mellitus Type 2 ([facility] [id number]) 3. Benign Prostatic Hypertrophy Without Outflow Obstruction ([facility] [id number]) 4. Hyperlipidemia ([facility] [id number]) Allergies: Patient has answered NKA The following [...] HI PHYSI ABBE EXAM GENERAL: well appearing [place] in NAD, speeking in clear sentences. SKIN: [...] longer following with off-site PCP, please call senior front end engineer to schedule sooner appt with [facility]. Return to clinic to see me in 12 months, RTC sooner if needed. 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 The [place]/caregiver was informed that we will continue to ask this screening question every 5 years. They can contact their provider/healthcare team if they have concerns about exposures and would like to be screened sooner. Printed information was offered and provided if desired. Hemoglobin A1C: [place] had HBA1C result from another health care site (results required). Date: October 09, 2023 Location: Outside Healthcare Provider Results: <6 /estefany/ SHELLY FERNANDEZ Nurse Practitioner Signed: 11/27/2023 09:41 11/28/2023 ADDENDUM STATUS: COMPLETED Vet called with the med that urology is prescribing its Finasteride 1mg daily I have updated his Med chart /estefany/ SHELLY FERNANDEZ Nurse Practitioner Signed: 11/28/2023 08:59 MISSY MALLORY [facility] [place] [facility] Nov 27, 2023 08:40 AM PREVENTIVE MEDICINE [...] Not at all Suicide Screen: C-SSRS Screening [place] Suicide Severity Rating Scale (C-SSRS) screener 1. [...] Not worried about housing near future The [place] reports the following: Within the past 12 [...] due to responses to other questions. 5. [place] numb or detached from people, activities, or your surroundings? Response not required due to responses to other questions. 6. [place] guilty or unable to stop blaming yourself [...] Signed: 11/27/2023 09:06 [facility]
--- OUTSIDE RECORDS SUMMARY | 2024-06-24 12:25 | XMS_ITS ---
Author Organization Vini Mendoza MD Address [address] [place] [id number] Care Team Providers Care Radon Inspector Name Role Phone Vini Mendoza Primary Care Provider [phone] REASON FOR VISIT echo results * Encounters Encounter Location Date Provider Diagnosis Vini Mendoza MD [address] [facility] [address] [place] [phone] 05/17/2024 Vini Mendoza Plan Of Treatment Next Appt Details Provider Name:Vini herzog, 07/01/2024 01:00:00 PM, [address] [facility], [address] [facility], [place], [place], [phone], Progress Notes * Audi ROMO:[birth year] (83 yo M)Acc No.[id number]:05/17/2024 Patient:?Deacon Romo :1940???Age:83 Y???Sex:Male Address:[address] [place] [id number] * true * Date:? Generated for Meg brenner/Min/eTransmitting on:?06/24/2024 12:25 PM EST
--- OUTSIDE RECORDS SUMMARY | 2024-06-24 12:25 | XMS_ITS ---
Author Organization [facility] Address [address] [place] [address] Care Team Providers Care Deckhand Name Role Phone Vini Mendoza MD Primary Care Provider Jennifer Justin Jr, Cedrick Blank REASON FOR VISIT pathology Encounters Encounter Location Date Provider Diagnosis [facility] [address] [place] [address] 01/29/2024 Cedrick Justin Jr PLAN OF TREATMENT Next Appt Details Provider Name:Cedrick licona Jr, 01/25/2025 09:20:00 AM, [address] [facility], [address], [place], [address],
--- OUTSIDE RECORDS SUMMARY | 2024-06-24 12:25 | XMS_ITS ---
Author Organization Vini Mendoza MD Address [address] [place] [phone] Care Team Providers Care Code Official Name Role Phone Vini Mendoza Primary Care Provider [phone] Results Component Value Reference Range Notes Complete Blood Count Auto Di ff (Not yet reviewed by provider) Interpretation: Performing Lab:[facility], [address] [place] [phone] Notes/Report: White Blood Count 7.9 4.8-10.8 X10*3/uL Red Blood Count 3.99 4.60-5.80 X10*6/uL Hemoglobin 11.2 14.0-18.0 g/dl Hematocrit 35.1 42.0-52.0 % Mean Corpuscular Volume 88.0 80.0-98.0 fL Mean Corpuscular Hemoglobin 28.1 27.0-33.0 pg Mean Corpuscular HGB Conc 31.9 31.0-36.0 g/dl Red Cell Distribution Width 16.0 11.0-16.0 % Platelet Count 211 160-400 X10*3/uL Mean Platelet Volume 11.2 9.4-12.4 fL Neutrophils Percent Auto 64.5 45-73 % Imm Gran Pct Auto 0.4 0.0-0.4 % Lymphocytes Percent Auto 24.9 20-40 % Monocytes Percent Auto 8.4 2-11 % Eosinophils Percent Auto 1.4 0-4 % Basophils Percent Auto 0.4 0-2 % NRBC Pct Auto 0.0 0.0-0.2 /100WBC Neutrophils Absolute Auto 5.1 2.0-8.3 x10*3/u L Imm Gran Abs Auto 0.03 0.00-0.03 X10*3/uL Lymphocytes Absolute Auto 2.0 1.2-4.9 X10*3/u L Monocytes Absolute Auto 0.7 0.1-1.2 X10*3/uL Eosinophils Absolute Auto 0.1 0.0-0.4 X10*3/u L Basophils Absolute Auto 0.0 0.0-0.2 X10*3/uL NRBC Abs Auto 0.000 0.0-0.012 X10*3/uL PSA,Total (Free>4and<10) (No t yet reviewed by provider) Interpretation: Performing Lab:[facility], [address] [place] [phone] Notes/Report: PSA,Total (Free>4and<10) 0.67 0.00-4.00 ng/mL A Free PSA was not [...] Ivory Alinity i Chemiluminescent Microparticle Immunoassay (CMIA) Hemoglobin A1c (Not yet revi ewed by provider) Interpretation: Performing Lab:[facility], [address] [place] [phone] Notes/Report: Hemoglobin A1c % 6.9 <6.0 % Hemoglobin A1C Reference Range Adults: 4.8 - 6.0 % Non diabetic: < 6.0 % Goal: < 7.0 % Additional Action Suggested: > 8.0 % Note: Hemoglobin A1c results are invalid for patients with abnormal amounts of HbF. Blood transfusions may impact the HbA1c concentration in the patient sample. Estimated Average Glucose 151 eAG = Estimated average glucose which is %A1C expressed as average glucose, using the formula of the N6D-Dfovyor Average Glucose study (ADAG), Diabetes Care, Vol.31,#8, Dec. 2007 UA ClnCatch+Micro w/rflx Cul t (Not yet reviewed by provider) Interpretation: Performing Lab:[facility], [address] [place] [phone] Notes/Report: Urine, Clean Catch Color Urine Yellow Appearance Urine Clear PH 5.5 5.0-9.0 Glucose Urine UA Negative Negative mg/dL Urine Blood Negative Negative Specific [place] - Urine >= 1.030 1.005-1.025 Urine Protein Trace Neg-Trace mg/dL Urine Ketones Trace Negative mg/dL Nitrite Urine Negative Negative Leukocyte Esterase Urine Negative Negative RBC Urine 0-2 0-2 /HPF WBC Urine 0-5 0-5 /HPF Squamous Epithelial Cell Urine 0-2 0-2 /HPF Bacteria Urine None Seen None Seen Hyaline Casts Urine 0-2 0-2 /LPF REASON FOR VISIT yearly fasting Encounters Encounter Location Date Provider Diagnosis Vini Mendoza MD [address] [place], [place] [phone] 06/24/2024 Vini Mendoza Blood tests for rout ine general physical examination Z00.00 ; Essential hypertension I10 ; Type 2 diabetes mellitus without complication E11.9 ; Pure hypercholesterolemia E78.00 and Prostatism N40.0 Assessments Encounter Date Diagnosis (ICD Code) Assessment Notes Treatment Notes Treatment Clinical Notes Section Notes 06/24/20[address] tests [address] ine general physical examination (ICD-10 - Z00.00) 06/24/2024 Essential hypertensi on (ICD-10 - I10) 06/24/2024 Type 2 diabetes arabella itus without complication (ICD-10 - E11.9) 06/24/2024 Pure hypercholesterolemia (ICD-10 - E78.00) 06/24/2024 Prostatism (ICD-10 - N40.0) Plan Of Treatment Pending Test Test Name Order Date Complete Blood Count Auto Diff Comprehensive [place]. Panel Fast Lipid Panel 06/24/2024 PSA,Total (Free>4and<10) 06/24/2024 Microalbumin, Random 06/24/2024 Hemoglobin A1c 06/24/2024 UA ClnCatch+Micro w/rflx Cult 06/24/2024 Next Appt Details Provider Name:Vini herzog, 07/01/2024 01:00:00 PM, [address] [facility], [address], [place], [phone], Progress Notes * Deacon ROMODOB:[birth year] (83 yo M)Acc No.[id number]:06/24/2024 Progress Note Patient:?ZHAOAILYN Deacon Provider:?Vini Mendoza MD :1940???Age:83 Y???Sex:Male Isaiah e:06/24/2024 Address:[address] [place] [address] MIKE Fernandez, [phone] Subjective: * Chief Complaints: * ???1. Yearly fasting. * Medical History:? Objective: * Vitals:? Assessment: * Assessment: 1.?Blood tests for routine g eneral physical examination - Z00.00 (Primary)???2.?Essential hypertension - I10???3.?Type 2 diabetes mellitus without complication - E11.9???4.?Pure hypercholesterolemia - E78.00???5.?Prostatism - N40.0??? Plan: * Treatment: 2.?Essential hypertension?LAB: Complete Blood Count Auto Diff (Collection Date & Time - 06/24/2024 07:45 AM) ?LAB: Comprehensive [place]. Panel Fast ?LAB: Lipid Panel ?LAB: PSA,Total (Free>4and<10) (Collection Date & Time - 06/24/2024 07:45 AM) ?LAB: Microalbumin, Random ?LAB: Hemoglobin A1c (Collection Date & Time - 06/24/2024 07:45 AM) ?LAB: UA ClnCatch+Micro w/rflx Cult (Collection Date & Time - 06/24/2024 07:45 AM) 3.?Type 2 diabetes mellitus without complication?LAB: Complete Blood Count Auto Diff (Collection Date & Time - 06/24/2024 07:45 AM) ?LAB: Comprehensive [place]. Panel Fast ?LAB: Lipid Panel ?LAB: PSA,Total (Free>4and<10) (Collection Date & Time - 06/24/2024 07:45 AM) ?LAB: Microalbumin, Random ?LAB: Hemoglobin A1c (Collection Date & Time - 06/24/2024 07:45 AM) ?LAB: UA ClnCatch+Micro w/rflx Cult (Collection Date & Time - 06/24/2024 07:45 AM) 4.?Pure hypercholesterolemia ?LAB: Complete Blood Count Auto Diff (Collection Date & Time - 06/24/2024 07:45 AM) ?LAB: Comprehensive [place]. Panel Fast ?LAB: Lipid Panel ?LAB: PSA,Total (Free>4and<10) (Collection Date & Time - 06/24/2024 07:45 AM) ?LAB: Microalbumin, Random ?LAB: Hemoglobin A1c (Collection Date & Time - 06/24/2024 07:45 AM) ?LAB: UA ClnCatch+Micro w/rflx Cult (Collection Date & Time - 06/24/2024 07:45 AM) 5.?Prostatism?LAB: Complete Blood Count Auto Diff (Collection Date & Time - 06/24/2024 07:45 AM) ?LAB: Comprehensive [place]. Panel Fast ?LAB: Lipid Panel ?LAB: PSA,Total (Free>4and<10) (Collection Date & Time - 06/24/2024 07:45 AM) ?LAB: Microalbumin, Random ?LAB: Hemoglobin A1c (Collection Date & Time - 06/24/2024 07:45 AM) ?LAB: UA ClnCatch+Micro w/rflx Cult (Collection Date & Time - 06/24/2024 07:45 AM) * Procedure Codes:?40467 VENIP UNCT, ROUTINE* * * The named appointment provid er may or may not be the originator of this progress note, and it is not deemed complete until electronically signed by the appointment provider. Sign off status: Pending * Provider:?Vini Mendoza MD Date:?0 06/24/2024 Generated for Meg brenner/Min/Jordenitting on:?06/24/2024 12:25 PM EST
--- OUTSIDE RECORDS SUMMARY | 2024-06-24 12:25 | XMS_ITS | Continuity of Care Document ---
Author Name [facility] Organization [facility] Care Team Providers Care Trimmer And Reinforcer Name Role Phone [facility] Unavailable Unavailable Problems Combined list of problems from Department of [facility] and [facility] facilities. It does not include entries that were removed or entered in error. Problem Status Onset Date Problem Type Date of Resolution Comments Source Benign essential hypertension Active [facility] [place] [facility] Benign Prostatic Hypertrophy Without Outflow Obstruction ([facility] [id number]) Active Condition [facility] [place] [facility] Diabetes Mellitus Type 2 ([facility] [id number]) Active [place] [facility] [place] [facility] Hyperlipidemia ([facility] [id number]) Active Condition [facility] [place] [facility] Diagnosis: ICD-10-CM Z46.1 Encounter for fitting and adjustment of hearing aid Active Diagnosis [facility] [place] [facility] Diagnosis: ICD-10-CM I10 Essential (primary) hypertension Active Diagnosis [facility] [place] [facility] Diagnosis: ICD-10-CM 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 Active Diagnosis [facility] S Diagnosis: ICD-10-CM Z02.89 Encounter for other administrative examinations Active Diagnosis [facility] [place] [facility] Diagnosis: ICD-10-CM H90.3 Sensorineural hearing loss, bilateral Active Diagnosis [facility] Diagnosis: ICD-10-CM H90.5 Unspecified sensorineural hearing loss Active Diagnosis [facility] Medications Combined list of outpatient medications from Department of Defense and [facility] facilities.Medications provided include 1) outpatient medications from the last 15 months, and 2) patient-reported medications. Medication Details Route Status Patient Instructions Prescription Expires Prescription Number Last Dispense Date Ordering Provider Order Date Order Qty Source ASPIRIN 81MG TAB,CHEWABL E CHEW ONE TABLET BY MOUTH ONCE DAILY ORAL ACTIVE RA NAIF ROLAND 2018 [facility] [place] [facility] ATORVASTATI N [place] 20MG TAB TAKE ONE-HALF TABLET BY MOUTH EVERY EVENING ORAL ACTIVE RA NAIF ROLAND 2018 [facility] [place] [facility] FINASTERIDE 1MG TAB TAKE ONE TABLET BY MOUTH ONCE DAILY ORAL ACTIVE MOHAMUD, MISSY VIJAYA 2023 [facility] [place] [facility] FLUTICASONE PROPIONATE (FLUTICASON E PROPIONATE) , 50MCG, SPRAY SUSP, NASAL, APOTEX JEANINE, 16 g AER W/ADAP Cancele d [id number] : 2023 0 Pharmac y Data Transac tion Service Facilit y FLUTICASONE PROPIONATE (FLUTICASON E PROPIONATE) , 50MCG, SPRAY SUSP, NASAL, APOTEX JEANINE, 16 g AER W/ADAP Active [id number] 4 2023 16 Pharmac y Data Transac tion Service Facilit y HYDROCHLORO THIAZIDE 12.5MG/IRBE SARTAN 150MG TAB TAKE ONE TABLET BY MOUTH ONCE DAILY ORAL ACTIVE RA NAIF ROLAND 2018 [facility] [place] [facility] HYDROCHLORO THIAZIDE 12.5MG/IRBE SARTAN 150MG TAB TAKE ONE TABLET BY MOUTH ONCE DAILY ORAL ACTIVE MOHAMUD, MISSY VIJAYA 2023 [facility] [place] [facility] [facility] JANUVIA (SITAGLIPTI N PHOSPHATE), 100MG, TABLET, ORAL, [employer] 30 ea. BOTTLE Active [id number] 4 2023 90 Pharmac y Data Transac tion Service Facilit y LORATADINE 10MG TAB TAKE ONE TABLET BY MOUTH ONCE DAILY ORAL ACTIVE MOHAMUD, MISSY VIJAYA 2023 [facility] [place] [facility] METFORMIN HCL 1000MG TAB TAKE ONE TABLET BY MOUTH TWICE DAILY ORAL ACTIVE RA NAIF ROLAND 2018 [facility] [place] [facility] METOPROLOL SUCCINATE 50MG TAB,SA TAKE ONE TABLET BY MOUTH ONCE DAILY ORAL ACTIVE RA NAIF ROLAND 2018 [facility] [place] [facility] MONTELUKAST NA 10MG TAB TAKE ONE TABLET BY MOUTH ONCE DAILY ORAL ACTIVE RA LUAN NAIF PEOPLES 2018 [facility] MONTELUKAST SODIUM (MONTELUKAS T SODIUM), 10 MG, TABLET, ORAL, TORRENT PHARMAC, 90 ea. BOTTLE Active [id number] 2023 90 Pharmac y Data Transac tion Service Facilit y MONTELUKAST SODIUM (montelukas t sodium), 10 MG, TABLET, ORAL, UNICHEM [employer]ARMAC, 90 ea. BOTTLE Active [id number] 4 2023 90 Pharmac y Data Transac tion Service Facilit y Immunizations Combined list of available immunizations from the Department of Defense and Veterans Affairs facilities. 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 Status Comments Source INFLUENZA, UNSPECIFIED FORMULATION 2022 88 complet ed [facility] [place] [facility] INFLUENZA, UNSPECIFIED FORMULATION 2021 88 complet [facility] influenza, high-dose, quadrivalent 2020 [place], () Not Given influenza , high-dose , quadrival ent [facility] COVID-19 (MODERNA), MRNA, LNP-S, PF, 100 MCG/0.5 ML DOSE 2 2020 207 complet ed MOD; [id number]; 1 [facility] COVID-19 (MODERNA), MRNA, LNP-S, PF, 100 MCG/0.5 ML DOSE 1 2020 207 complet ed MOD; [id number]; 1 [facility] [place] INFLUENZA, UNSPECIFIED FORMULATION 2019 88 complet ed [facility] [place] [facility] INFLUENZA, SEASONAL, INJECTABLE 2018 141 complet ed [facility] zoster recombinant 2017 [place], () Not Given [...] 08:49:19 [facility] [place] [facility] Encounters Combined list of: 1) Encounters from Department of Veterans Affairs facilities going back up to thelast 18 months. 2) Encounters from the Department of [facility] facilities going back up to 280 months. Location Location Details Encounter Type Encounter Number Reason For Visit Attending Provider ADM Date DC Date Status Disposition Source [facility] OFFICE O/P EST LOW 20-29 MIN [id number]. [id number] Diagnos is: ICD-10- CM H90.5 Unspeci fied sensori neural hearing loss
DO EVIE GROSS 12/10 [facility] HEARING AID EXAM BOTH EARS [id number]. [id number] Diagnos is: ICD-10- CM H90.3 Sensori neural hearing loss, bilater al
BAYVanessa RICH DAM 12/29 [facility] Outpatient Encounter [id number] 01/02 [facility] CONFORMITY EVALUATION [id number]. [id number] Diagnos is: ICD-10- CM Z46.1 Encount er for fitting and adjustm ent of hearing aid<br/ > ALEC SANCHEZ 01/28 [facility] [place] [facility] Outpatient Encounter [id number] 03/01 [facility] [place] [facility] [place] [facility] Outpatient Encounter [id number] Diagnos is: ICD-10- CM Z02.89 Encount er for other adminis trative examina tions<b r/> LAMBERTTigreMAO DIAZWHIT VaughnJULITO A 03/19 [facility] [place] [facility] [place] [facility] Outpatient Encounter [id number] Diagnos is: ICD-10- CM Z02.89 Encount er for other adminis trative examina tions<b r/> CAROLINEROLAEK,LA UREN L 03/25 [facility] [place] [facility] [place] [facility] HEARING AID FITTING/CH ECKING [id number] Diagnos is: ICD-10- CM Z46.1 Encount er for fitting and adjustm ent of hearing aid<br/ > CAROLINEROLAEK,LA UREN L 03/25 [facility] [place] [facility] OFFICE O/P EST LOW 20-29 MIN [id number] Diagnos is: ICD-10- CM H74.91 Unspeci fied disorde r of right middle ear and mastoid
DO EVIE GROSS 04/01 [facility] [place] [facility] HEARING AID REPAIR/MOD IFYING [id number] Diagnos is: ICD-10- CM Z46.1 Encount er for fitting and adjustm ent of hearing aid<br/ > BONCZEK,LA UREN L 04/27 [facility] [place] [facility] [place] [facility] HEARING AID FITTING/CH ECKING [id number] Diagnos is: ICD-10- CM Z46.1 Encount er for fitting and adjustm ent of hearing aid<br/ > RIBBE,PJ I 06/03 [facility] [place] [facility] [place] [facility] En[facility] [id number] 07/02 [facility] [place] [facility] [place] [facility] En[facility] [id number] 10/08 [facility] [place] [facility] [place] [facility] OFFICE O/P EST MOD 30 MIN [id number] Diagnos is: ICD-10- CM I10 Essenti al (primar y) hyperte nsion<b r/> Aminata MALLORY EDGARD VIJAYA 11/26 [facility] [place] [facility] [place] [facility] Outpatient Encounter [id number] 11/26 [facility] [place] [facility] [place] [facility] HEARING AID FITTING/CH ECKING [id number] Diagnos is: ICD-10- CM Z46.1 Encount er for fitting and adjustm ent of hearing aid<br/ > Gris DEL ROSARIO 12/09 [facility] [place] [facility] Social History Combined list of available smoking, tobacco, and other social history from Department of Defense and Veterans Affairs facilities. Social History Type Response Date Comment Sourc e Tobacco smoking status MNIS [facility] FORMER USER 11/27/2023 [facility] [...] VA-TOBACCO QUIT 15 YRS OR MORE 04/19/2019 [facility] This section is an empty social history section. [facility] Plan of Care List of future care activities from Department of Veterans Affairs facilities. Additional future care activities may be listed in the Assessment and Plan section. Date/Time Care Activity Care Activity Detail Facili ty 11/30/2024 AMBULATORY - MEDICINE AMBULATORY - MEDICI [facility]
--- OUTSIDE RECORDS SUMMARY | 2024-06-24 12:25 | XMS_ITS | Patient Health Record ---
Author Organization [facility] Address [address] [place] [address] Care Team Providers Care Director Of Physical Therapy Name Role Phone Kelly RIGGS, Vini Primary Care Provider Cedrick Becerra Jr Unavailable ALLERGIES Allergen (clinical drug ingredient) Drug/Non Drug Allergy documented on EMR Reaction Allergy Type Onset Date Status seasonal (uncoded) Unknown Allergy A ctive RESULTS Component Value Reference Range Notes Glucose, Whole Blood Reviewed date:01/27/2024 04:42:27 PM Interpretation: Performing Lab:[facility], [address] [place] [phone] Notes/Report: Glucose, Whole Blood 133 60-115 mg/dL METER # : [id number] Pathology Reviewed date:01/29/2024 02:29:14 PM Interpretation: Performing Lab:[facility], [address] [place] [phone] Notes/Report: REASON FOR REFERRAL No Information MEDICATIONS [...] Problem Colon cancer screening (Z12.11) Active confirmed 267525416 Problem Personal history of colonic polyps (Z86.010) Active confirmed 939293051 Problem Long-term use of aspirin therapy (Z79.82) Active confirmed 259214125 Problem Long-term current use of high risk medication other than anticoagulant (Z79.899) Active confirmed 111433320 Problem FH: colon cancer (Z80.0) Active confirmed 063402495 Problem Hypertension, unspecified type (I10) Active confirmed 13386851 VITAL SIGNS Temperature 97.7 degrees Fahrenheit 12/09/2023 Blood pressure diastolic 00 mm Hg 12/09/2023 Height 69.5 in 12/09/2023 Blood pressure systolic 000 mm Hg 12/09/2023 Weight 221 lb 6 oz lbs 12/09/2023 BMI 32.22 kg/m2 12/09/2023 Encounters Encounter Location Date Provider Diagnosis [facility] Outpatient [address] [place] [id number] 01/26/2024 Cedrick Justin Jr Colon cancer screening Z12.11 ; Family history of colon cancer Z80.0 and Colon polyps K63.5 [facility] [address] [place] [phone] 09/02/2023 Cedrick Justin Jr [facility] [address] [place] [phone] 12/09/2023 Cedrick Justin Jr Colon cancer screening Z12.11 ; Long-term use of aspirin therapy Z79.82 and FH: colon cancer Z80.0 [facility] [address] [place] [phone] 08/31/2023 Cedrick Justin Jr [facility] [address] [place] [address] 01/29/2024 Cedrick Justin Jr ASSESSMENTS Encounter Date [...] Name:Cedrick licona Jr, 01/25/2025 09:20:00 AM, [address], [address], [place], [address], Insurance Providers Payer Name Payer Address Payer Phone Subscriber Number Group Number Insured Name Patient Relationship to Insured Coverage Start Date Coverage End Date [facility] [address] [place], [place] [id number] TOMEKA OLIVIER Self - patient is the insured [employer] [address] [place] [address] [id number] TOMEKA OLIVIER Self - patient is the [...]
[2024-06-24 12:30] LABS: Alanine Aminotransferase 57 U/L (0-40); Albumin Level 3.7 g/dL (3.5-5.0); Anion Gap 13 (12-20); Aspartate Amino Transferase 62 U/L (5-37); Blood Urea Nitrogen 22 mg/dL (9-16); Calcium 9.3 mg/dL (8.4-10.2); Carbon Dioxide 26 mmol/L (22-29); Chloride 107 mmol/L (96-108); Cholesterol 91 mg/dL (<200); Estimated Glomerular Filt Rate > 60; Glucose Fasting 123 mg/dL (60-99); HDL Cholesterol 30 mg/dL (>40); LDL Cholesterol Calculated 34 mg/dL (<100); Potassium 4.8 mmol/L (3.3-5.1); Sodium 141 mmol/L (135-145); Triglycerides 138 mg/dL (<150)
[2024-06-24 12:36] LABS: Creatinine Urine 225.05 mg/dL; Microalbum/Creatinine Ratio Ur 19.5 ug/mg cr (<30)
[2024-06-24 14:21] LABS: Alkaline Phosphatase 68 U/L (39-117)
== END 2024-06-24 10:47 | disposition home or self-care (01) ==
LOC: HO.LNP 10:46
PROVIDERS: Visit Provider Internal Medicine
DX: Z00.00 Encounter for general adult medical examination without abnormal findings (principal); I10 Essential (primary) hypertension; E78.00 Pure hypercholesterolemia, unspecified; N40.0 Benign prostatic hyperplasia without lower urinary tract symptoms; E11.9 Type 2 diabetes mellitus without complications; Z12.5 Encounter for screening for malignant neoplasm of prostate
CPT/HCPCS: 80053; 80061; 81001; 82043; 82570; 83036; 84153; 85025

== ENCOUNTER 2024-07-01 15:20 | Outpatient (REF) | payer MEDICARE, OTHER, SELFPAY ==
[2024-07-01 15:22] LABS: MANUAL DIFF FLAG NO
--- OUTSIDE RECORDS SUMMARY | 2024-07-01 15:22 | XMS_ITS | Continuity of Care Document ---
Author Name [facility] Organization [facility] Care Team Providers Care Director Patient Name Role Phone [facility] Unavailable Unavailable Problems Combined list of problems from Department of [facility] and [facility] facilities. It does not include entries that were removed or entered in error. Problem Status Onset Date Problem Type Date of Resolution Comments Source Benign essential hypertension [facility] [place] [facility] Benign Prostatic Hypertrophy Without Outflow Obstruction ([facility] [id number]) Active Condition [facility] [place] [facility] Diabetes Mellitus Type 2 ([facility] 26044303) Active Condition [facility] [place] [facility] Hyperlipidemia ([facility] 47232652) Active Condition [facility] [place] [facility] Diagnosis: ICD-10-CM Z46.1 Encounter for fitting and adjustment of hearing aid Active Diagnosis [facility] [place] [facility] Diagnosis: ICD-10-CM I10 Essential (primary) hypertension Active Diagnosis [facility] [place] [facility] Diagnosis: ICD-10-CM 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 Active Diagnosis [facility] S Diagnosis: ICD-10-CM Z02.89 Encounter for other administrative examinations Active Diagnosis [facility] [place] [facility] Diagnosis: ICD-10-CM H90.3 Sensorineural hearing loss, bilateral Active Diagnosis [facility] Diagnosis: ICD-10-CM H90.5 Unspecified sensorineural hearing loss Active Diagnosis [facility] Medications Combined list of outpatient medications from Department of Defense and [facility] facilities.Medications provided include 1) outpatient medications from the last 15 months, and 2) patient-reported medications. Medication Details Route Status Patient Instructions Prescription Expires Prescription Number Last Dispense Date Ordering Provider Order Date Order Qty Source ASPIRIN 81MG TAB,CHEWABL E CHEW ONE TABLET BY MOUTH ONCE DAILY ORAL ACTIVE RA NAIF ROLAND 2018 [facility] [place] [facility] ATORVASTATI N [place] 20MG TAB TAKE ONE-HALF TABLET BY MOUTH EVERY EVENING ORAL ACTIVE RA NAIF ROLAND 2018 [facility] [place] [facility] FINASTERIDE 1MG TAB TAKE ONE TABLET BY MOUTH ONCE DAILY ORAL ACTIVE MOHAMUD, MISSY VIJAYA 2023 [place] [facility] [place] [facility] [facility] FLUTICASONE PROPIONATE (FLUTICASON E PROPIONATE) , 50MCG, SPRAY SUSP, NASAL, APOTEX JEANINE, 16 g AER W/ADAP Cancele d [id number] : 2023 0 Pharmac y Data Transac tion Service Facilit y FLUTICASONE PROPIONATE (FLUTICASON E PROPIONATE) , 50MCG, SPRAY SUSP, NASAL, APOTEX JEANINE, 16 g AER W/ADAP Active [id number] 4 2023 16 Pharmac y Data Transac tion Service Facilit y HYDROCHLORO THIAZIDE 12.5MG/IRBE SARTAN 150MG TAB TAKE ONE TABLET BY MOUTH ONCE DAILY ORAL ACTIVE RA NAIF ROLAND [facility] [place] [facility] HYDROCHLORO THIAZIDE 12.5MG/IRBE SARTAN 150MG TAB TAKE ONE TABLET BY MOUTH ONCE DAILY ORAL ACTIVE MOHAMUD, MISSY VIJAYA 2023 [facility] [facility] JANUVIA (SITAGLIPTI N PHOSPHATE), 100MG, TABLET, ORAL, [employer] 30 ea. BOTTLE Active [id number] 4 2023 90 Pharmac y Data Transac tion Service Facilit y LORATADINE 10MG TAB TAKE ONE TABLET BY MOUTH ONCE DAILY ORAL ACTIVE MOHAMUD, MISSY VIJAYA 20[address] [facility] [place] [facility] METFORMIN HCL 1000MG TAB TAKE ONE TABLET BY MOUTH TWICE DAILY ORAL ACTIVE RA NAIF ROLAND 2018 [facility] [place] [facility] [facility] METOPROLOL SUCCINATE 50MG TAB,SA TAKE ONE TABLET BY MOUTH ONCE DAILY ORAL ACTIVE RA NAIF ROLAND 2018 [facility] [place] [facility] [facility] MONTELUKAST NA 10MG TAB TAKE ONE TABLET BY MOUTH ONCE DAILY ORAL ACTIVE RA LUAN NAIF PEOPLES 2018 [facility] [place] MONTELUKAST SODIUM (MONTELUKAS T SODIUM), 10 MG, TABLET, ORAL, TORRENT PHARMAC, 90 ea. BOTTLE Active [id number] 4 2023 90 Pharmac y Data Transac tion Service Facilit y MONTELUKAST SODIUM (montelukas t sodium), 10 MG, TABLET, ORAL, UNICHEM PHARMAC, 90 ea. BOTTLE Active [id number] 4 2023 90 Pharmac y Data Transac tion Service Facilit y Immunizations Combined list of available immunizations from the Department of Defense and Veterans Affairs facilities. Immunization Series Date Given Administered By Site Reaction Lot Number CVX Code Drug Money Room Supervisor Status Comments Source INFLUENZA, UNSPECIFIED FORMULATION 2022 88 complet ed [facility] INFLUENZA, UNSPECIFIED FORMULATION 2021 88 complet ed [facility] influenza, high-dose, quadrivalent 2020 [place], () Not Given influenza , high-dose , quadrival ent [facility] COVID-19 (MODERNA), MRNA, LNP-S, PF, 100 MCG/0.5 ML DOSE 2 2020 207 complet ed MOD; [id number]; 1 [facility] [place] [facility] [facility] COVID-19 (MODERNA), MRNA, LNP-S, PF, 100 MCG/0.5 ML DOSE 1 2020 207 complet ed MOD; [id number]; 1 [facility] [place] [facility] [facility] INFLUENZA, UNSPECIFIED FORMULATION 2019 88 complet ed [facility] [place] [facility] [facility] INFLUENZA, SEASONAL, INJECTABLE 2018 141 complet ed [facility] zoster recombinant 2017 [place], () Not [...] months. 2) Encounters from the Department of [facility] facilities going back up to 280 months. Location Location Details Encounter Type Encounter Number Reason For Visit Attending Provider ADM Date DC Date Status Disposition Source [facility] OFFICE O/P EST LOW 20-29 MIN [id number]. [id number] Diagnos is: ICD-10- CM H90.5 Unspeci fied sensori neural hearing loss
DO EVIE GROSS 12/10 [facility] HEARING AID EXAM BOTH EARS [id number]. [id number] Diagnos is: ICD-10- CM H90.3 Sensori neural hearing loss, bilater al
BAYVanessa RICH DAM 12/29 [facility] Outpatient Encounter [id number] 01/02 [facility] CONFORMITY EVALUATION [id number]. [id number] Diagnos is: ICD-10- CM Z46.1 Encount er for fitting and adjustm ent of hearing aid<br/ > ALEC SANCHEZ 01/28 [facility] [place] [facility] Outpatient Encounter [id number] 03/01 [facility] [place] [facility] [place] [facility] Outpatient Encounter [id number] Diagnos is: ICD-10- CM Z02.89 Encount er for other adminis trative examina tions<b r/> LAMBERTTigreMAO DIAZWHIT VaughnJULITO A 03/19 [facility] [place] [facility] [place] [facility] Outpatient Encounter [id number] Diagnos is: ICD-10- CM Z02.89 Encount er for other adminis trative examina tions<b r/> CAROLINEROLAEK,LA UREN L 03/25 [facility] [place] [facility] [place] [facility] HEARING AID FITTING/CH ECKING [id number] Diagnos is: ICD-10- CM Z46.1 Encount er for fitting and adjustm ent of hearing aid<br/ > CAROLINEROLAEK,LA UREN L 03/25 [facility] [place] [facility] OFFICE O/P EST LOW 20-29 MIN [id number] Diagnos is: ICD-10- CM H74.91 Unspeci fied disorde r of right middle ear and mastoid
DO EVIE GROSS 04/01 [facility] [place] [facility] HEARING AID REPAIR/MOD IFYING [id number] Diagnos is: ICD-10- CM Z46.1 Encount er for fitting and adjustm ent of hearing aid<br/ > BONCZEK,LA UREN L 04/27 [facility] [place] [facility] [place] [facility] HEARING AID FITTING/CH ECKING [id number] Diagnos is: ICD-10- CM Z46.1 Encount er for fitting and adjustm ent of hearing aid<br/ > RIBBE,PJ I 06/03 [facility] [place] [facility] [place] [facility] En[facility] [id number] 07/02 [facility] [place] [facility] [facility] [place] [facility] En[facility] [id number] 10/08 [facility] [place] [facility] [facility] [place] [facility] OFFICE O/P EST MOD 30 MIN [id number] Diagnos is: ICD-10- CM I10 Essenti al (primar y) hyperte nsion<b r/> Aminata MALLORY EDGARD VIJAYA 11/26 [facility] [place] [facility] [facility] [place] [facility] Outpatient Encounter [id number] 11/26 [facility] [place] [facility] [facility] [place] [facility] HEARING AID FITTING/CH ECKING [id number] Diagnos is: ICD-10- CM Z46.1 Encount er for fitting and adjustm ent of hearing aid<br/ > Gris DEL ROSARIO 12/09 [facility] [place] [facility] Social History Combined list of available smoking, tobacco, and other social history from Department of Defense and Veterans Affairs facilities. Social History Type Response Date Comment Sourc e Tobacco smoking status SCIS VA-TOBACCO FORMER USER 11/27/2023 [facility] [...] VA-TOBACCO QUIT 15 YRS OR MORE 04/19/2019 [facility] This section is an empty social history section. [facility] Plan of Care List of future care activities from Department of Veterans Affairs facilities. Additional future care activities may be listed in the Assessment and Plan section. Date/Time Care Activity Care Activity Detail Facili ty 11/30/2024 AMBULATORY - MEDICINE AMBULATORY - MEDICI [facility]
[2024-07-01 15:27] LABS: Basophils Percent Auto 0.4 % (0-2); Eosinophils Absolute Auto 0.1 X10*3/uL (0.0-0.4); Eosinophils Percent Auto 1.1 % (0-4); Hematocrit 36.1 % (42.0-52.0); Hemoglobin 11.7 g/dl (14.0-18.0); Imm Gran Abs Auto 0.03 X10*3/uL (0.00-0.03); Imm Gran Pct Auto 0.3 % (0.0-0.4); Lymphocytes Absolute Auto 2.2 X10*3/uL (1.2-4.9); Lymphocytes Percent Auto 20.7 % (20-40); Mean Corpuscular HGB Conc 32.4 g/dl (31.0-36.0); Mean Corpuscular Hemoglobin 28.2 pg (27.0-33.0); Mean Platelet Volume 11.6 fL (9.4-12.4); Monocytes Absolute Auto 0.8 X10*3/uL (0.1-1.2); Monocytes Percent Auto 7.7 % (2-11); Neutrophils Absolute Auto 7.3 x10*3/uL (2.0-8.3); Neutrophils Percent Auto 69.8 % (45-73); Platelet Count 239 X10*3/uL (160-400); Red Blood Count 4.15 X10*6/uL (4.60-5.80); Red Cell Distribution Width 16.3 % (11.0-16.0); White Blood Count 10.5 X10*3/uL (4.8-10.8)
[2024-07-01 17:33] LABS: Iron 35 mcg/dL (45-160); Percent Iron Saturation 10 % (15-50); Total Iron Binding Capacity 346 mcg/dL (228-428); Unsaturated Iron Binding 311 ug/dL
[2024-07-01 19:13] LABS: Folate 11.5 ng/mL (> or = 4.0); Vitamin B12 245 pg/mL (200-900)
== END 2024-07-01 15:21 | disposition home or self-care (01) ==
LOC: HO.LNP 15:20
PROVIDERS: Visit Provider Internal Medicine
DX: D64.9 Anemia, unspecified (principal)
CPT/HCPCS: 82607; 82746; 83540; 85025

== ENCOUNTER 2024-08-04 08:10 | Outpatient (AMB) | payer MEDICARE, OTHER, SELFPAY ==
--- NOTE | 2024-08-04 08:16 | A.OFFVIS_ITS ---
Intake Visit Reasons: BPH Follow up/PVR Intake Note: Patient presents today for follow up on: BPH Meds: Finasteride Allergies to Antibiotic: No Known Allergies Blood Thinner: Aspirin today's PVR: 0ml's Inventory Specialist Manager Required: No Accompanied by: Self / Same As Patient Allergies No Known Allergies [No Known Allergies*] Allergy (Verified 08/04/24 08:21) HPI Comments Details: 08/04/24-- Deacon is an 83-year-old male presenting with a 9-month follow-up for Benign Prostatic Hyperplasia (BPH). He has been on finasteride therapy after undergoing Transurethral Resection of the Prostate (TURP) on June 02, 2023. Post-surgical outcomes include the resolution of nocturnal urination and effective bladder emptying. Finasteride continues to be an integral part of his treatment plan. He is also managing Type 2 Diabetes Mellitus with metformin and Ozempic, which has resulted in significant weight loss and improved A1c levels. Hypertension is controlled with metoprolol. There are no reports of new symptoms or adverse effects from medications. Urinary Symptoms Review - Nocturia: Absent, indicating no nighttime awakenings for urination. - Post-void residual volume: Low at 15 mL, confirming effective bladder emptying. - Urinary flow: Described as good, with finasteride therapy continued post-TURP. Results - Tests and Diagnostics: 08/04/34--Bladder scan post-void residual volume of 15 mL. 12/14/23--Deacon is being followed for BPH he is on Proscar. He is here in follow-up he states he voiding without difficulty, he has not seen blood in the urine. He complains that he has had some redness and itching around the foreskin. On examination: Genitalia testicles normal no scrotal swelling there is redness around the foreskin which can not easily be retracted. Urinalysis negative for leukocytes negative blood. Bladder scan PVR 0 mL. Plan to continue Proscar will treat with Lotrisone cream to the foreskin 06/19/2023-- Deacon is an 82-year-old male who presents today for a telehealth follow-up. Deacon is status post TUR on 06/02/23. I have reviewed with him that the abnormal appearing tissue near the bladder neck came back as benign hyperpl juju of the prostate. The patient states he is voiding well since the procedure. 04/16/2023--He is followed today for a repeat cystoscopy procedure. He was sent by his PCP for evaluation of hematuria. He was seen on 11/07/2022 with the complaints of gross hematuria after riding a car for several hours. He was sent for a CT scan. He is on Baby Aspirin. CoMorbidity- Nicotine dependence. Status post laser procedure of the prostate many years ago by Dr. Parson. Evaluation today: --UA--Leukocytes: negative; blood: negative; protein: 1 +. Cystoscopy findings: Irregular growth near the bladder neck on the left side, unable to determine if it is prostatic tissue or bladder tumor. Plan: Consent form was obtained for the procedure. Patient needs to get medical clearance for the procedure. Cystoscopy, transurethral resection of the bladder tumor, random bladder biopsies as an outpatient was discussed to be scheduled. On 02/12/2023 office cystoscopy was performed, there was bleeding from prostatic urethra secondary to cytoscopy instrumentation and visualization was limited. Patient states that he will be leaving to [place] in third week of July. Cystoscopy findings: Prostate tissue has shown re-growth, and there is some bleeding at the prostate area with instrumentation, and visualization of the bladder is limited. Test results-- CTAP w/wo IV contrast-12/17/2022 revealed no renal mass, no renal stone, no hydronephrosis, moderate prostate enlargement with extended into the bladder base. Ultrasound-01/12/2023 revealed punctuate echogenic stone in the right upper pole of the kidney. ? Review of labs from 04/26/2023 revealed PSA - 1.08, and on 05/27 PSA --1.18, 05/23/22, PSA was 1.89. Urine cytology report results from 01/13/2023 revealed negative for high-grade urothelial carcinoma. [facility] Medical History Elevated cholesterol Seasonal allergies Diabetes Basal cell carcinoma (BCC) Surgical History History of transurethral resection of bladder tumor (TURBT) History of biopsy of bladder Hx of colonoscopy Hx of cystoscopy Family History Mother No problems noted. Father No problems noted. Social History Household Members: None Housing: House Are you a primary md do resident urgent care to a significant other at home: No Do you presently have visiting nurse or other home services: No Alcohol intake: current Alcohol intake frequency: holidays/special occasions only Patient Tobacco Use Status: Former Tobacco user Review of Systems Const All systems reviewed & are unremarkable except as noted in HPI and below Reports no additional complaints Eyes Reports no additional complaints ENT Reports no additional complaints Card Reports no additional complaints Resp Reports no additional complaints GI Reports no additional complaints Reports as per HPI Musc Reports no additional complaints Skin/Breast Reports system reviewed and no additional complaints, except as documented Neuro Reports no additional complaints Psych Reports no additional complaints Endo Reports no additional complaints Sharath/Lymph Reports no additional complaints Aller/Immun Reports no additional complaints Office Procedures Post Void Residual Post Residual Void Post Void Residual (PVR): 15 [id number] Void Residual by ultrasound Results AMB Urinalysis, Automated UA Leukoctes 0 Brissa/uL Last Edit by Michelle Rm CMA on 08/04/24 08:23 UA Nitrite Negative Last Edit by Michelle Rm CMA on 08/04/24 08:23 UA Urobilinogen 0.2 mg/dL Last Edit by Michelle Rm CMA on 08/04/24 08:23 UA Protein 15 mg/dL Last Edit by Michelle Rm CMA on 08/04/24 08:23 UA pH 5.5 Last Edit by Michelle Rm CMA on 08/04/24 08:23 UA Blood 0 Cezar/uL Last Edit by Michelle Rm CMA on 08/04/24 08:23 UA Specific Colerain 1.030 Last Edit by Michelle Rm CMA on 08/04/24 08:23 UA Ketone Last Edit by Michelle Rm CMA on 08/04/24 08:23 UA Bilirubin 0 mg/dL Last Edit by Michelle Rm CMA on 08/04/24 08:23 UA Glucose 0 mg/dL Last Edit by Michelle Rm CMA on 08/04/24 08:23 Results Reviewed Results Reviewed: Laboratory Last Values Urine pH (Auto) 5.5 08/04/24 08:22 Specific Colerain (Auto) 1.030 08/04/24 08:22 Urine Protein (Auto) 15 mg/dL 08/04/24 08:22 Glucose (UA)(Auto) 0 mg/dL 08/04/24 08:22 Urine Blood (Auto) 0 Cezar/uL 08/04/24 08:22 Urine Nitrite (Auto) Negative 08/04/24 08:22 Urine Bilirubin (Auto) 0 mg/dL 08/04/24 08:22 Urine Urobilinogen (Auto) 0.2 mg/dL 08/04/24 08:22 Leukocyte Esterase (Auto) 0 Brissa/uL 08/04/24 08:22 Collected: 06/02/23 Location: [facility] Received: 06/02/23 Diagnosis Prostate, transurethral resection: Nodular prostatic stromal and epithelial hyperplasia with mild chronic inflammation (BPH) Assessment & Plan Assessment & Plan (1) Screening PSA (prostate specific antigen): Code(s): Z12.5 - Encounter for screening for malignant neoplasm of prostate Category: Medical (2) BPH loc w urin obs/LUTS: Code(s): N40.1 - Benign prostatic hyperplasia with lower urinary tract symptoms Category: Medical Plan Plan Finasteride therapy will be maintained for continued management of BPH, given the current effectiveness and absence of adverse symptoms. The patient?s post- TURP outcomes are satisfactory with no nocturnal urination and a minimal post- void residual volume of 15 mL. A renal ultrasound and PSA test are planned for the next year's follow-up. Discussion Notes During the consultation, I emphasized the continuation of finasteride therapy, given its efficacy in managing symptoms of BPH post-TURP. I discussed the plan to monitor PSA and kidney health with diagnostic tests during the next annual visit. We talked about the stability of his current health status, including his well-controlled diabetes with the new addition of Ozempic. The patient is aware of returning next year or sooner if symptoms change. Orders: Orders AMB Post Void Residual by ultrasound Today N40.0 - Benign prostatic hyperplasia without lower urinary tract symptoms PSA,Total (Free>4and<10) 11 Months N40.0 - Benign prostatic hyperplasia without lower urinary tract symptoms, Z12.5 - Encounter for screening for malignant neoplasm of prostate AMB Urinalysis Automated Today R31.0 - Gross hematuria US renal BI 11 Months N40.1 - Benign prostatic hyperplasia with lower urinary tract symptoms Medications: Refilled finasteride (Proscar) 5 mg PO DAILY 90 days 90 tabs 3RF C61 - Malignant neoplasm of prostate Patient Instructions: Patient Instructions - Continue taking finasteride 5 mg daily for BPH. - Adhere to the current medication regimen for diabetes and hypertension. - Maintain routine follow-ups with your primary care physician for diabetes management. - Return in one year for a follow-up visit, PSA testing, and renal ultrasound. - Stay hydrated and monitor for any new urinary symptoms or changes in health. Scribe Plan - Not visible on output: Patient was informed and verbally consented to the use of an ambient scribe for clinic note documentation during this visit. Coding Diagnoses Screening PSA (prostate specific antigen) Z12.5 BPH loc w urin obs/LUTS N40.1 CPT Codes Post Residual Void - PVR CPT Code: 66281-[id number] Void Residual by ultrasound ([id number])
--- OUTSIDE RECORDS SUMMARY | 2024-08-04 08:26 | XMS_ITS ---
Author Organization [facility] Address [address] [facility] [address] [place] [id number] Care Team Providers Care Alum Plant Operator Name Role Phone Vini Mendoza MD Primary Care Provider Jennifer Justin Jr, Cedirck Blank REASON FOR VISIT screening Encounters Encounter Location Date Provider Diagnosis [facility] [address] [place] [phone] 01/26/2024 Cedrick Justin Jr Colon cancer screening [...] Name:Cedrick licona Jr, 01/25/2025 09:20:00 AM, [address] [facility] [address], [address], [place], [address], Progress Notes * TOMEKA OLIVIERDOB:[birth year] (83 yo M)Acc No.[id number]:01/26/2024 COLON WITH MAC Patient:?REJIAMBAR TOMEKA Provider:?Cedrick Justin MD :1940???Age:83 Y???Sex:Male Isaiah e:01/26/2024 Address:[address] [place] [address] [place], [id number] Pcp:Vini Mendoza MD Subjective: * Chief Complaints: * ???1. Screening. * Medical History:? Objective: * Vitals:? Assessment: * Assessment: 1.?Colon cancer screening - Z12.11 (Primary)???2.?Family history of colon cancer - Z80.0???3.?Colon polyps - K63.5??? Plan: * Treatment: * Procedure Codes:?32883 LESIO N REMOVAL COLONOSCOPY, 50562 LESION REMOVE COLONOSCOPY, Modifiers: 59 , 21768 COLONOSCOPY AND BIOPSY, Modifiers: 59 , 0529F INTRVL 3+YRS PTS CLNSCP DOCD * * The named appointment provid er may or may not be the originator of this progress note, and it is not deemed complete until electronically signed by the appointment provider. Sign off status: Pending * Provider:?Cedrick Justin MD Date:?0 01/26/2024 Generated for Meg brenner/Min/Jordenitting on:?08/04/2024 08:26 AM EST
--- OUTSIDE RECORDS SUMMARY | 2024-08-04 08:27 | XMS_ITS ---
Author Organization Vini Mendoza MD Address [address] [place] [phone] Care Team Providers Care Registered Nurse Cardiac Name Role Phone Vini Mendoza Primary Care Provider Allergies No Known Allergies REASON FOR VISIT go over labs, Video [phone] Medications Medication SIG (Take, Route, Frequency, Duration) Notes Start Date End Date Status Atorvastatin Calcium 10 MG TAKE ONE TABLET BY MOUTH EVERY DAY Active Januvia 100 MG TAKE ONE TABLET BY M OUTH EVERY DAY Active metFORMIN HCl 1000 MG TAKE ONE TABLET BY MOUTH TWICE A DAY WITH MEALS Active Ozempic (0.25 or 0.5 MG/DOSE) 2 MG/3ML as directed Subcutaneous 0.25 mg weekly fminth then .5mg weekly for 30 days 02/22/2024 Not-Taking Valtrex 1 GM 2 tablet Orally ever y 12 hrs for 1 dose 05/07/2012 Not-Taking Montelukast Sodium 10 MG TAKE ONE TABLET BY MOUTH EVERY EVENING for 90 Active Irbesartan-hydroCHLOROth iazide 150-12.5 MG TAKE ONE TABLET BY MOUTH EVERY DAY for 90 Active Ozempic (1 MG/DOSE) 4 MG/3ML 1 mg Subcutaneous weekly for 30 days 04/15/2024 Active Ozempic (2 MG/DOSE) 8 MG/3ML 2 mg Subcutaneous weekly for 30 days 07/01/2024 Active Finasteride 5 MG 1 tablet Orally Once a day Active OneTouch Delica Lancing Dev as directed for 50 03/03/2013 Active Aspir-Low 81 MG 1 tablet Orally Once a day for 30 day(s) Active Xyzal Allergy 24HR 5 MG 1 tablet in the evening Orally Once a day for 30 day(s) Active Fluticasone Propionate 50 MCG/ACT USE 1 SPRAY IN EACH NOSTRIL ONCE A DAY for 90 Active Metoprolol Succinate ER 50 MG TAKE ONE TABLET BY MOUTH EVERY DAY for 90 Active OneTouch Ultra Test TEST BLOOD GLUCOSE T WICE A DAY for 50 Active Vital Signs Height 70 in 07/08/2024 Weight 189 lbs 07/08/2024 BMI 27.12 kg/m2 07/08/2024 weight is 189 at home no Bp taken at home no temp Encounters Encounter Location Date Provider Diagnosis Vini Mendoza MD [address] [place] [address] [place] [phone] 07/08/2024 Vini Mendoza Iron deficiency E61.1 Assessments Encounter Date Diagnosis (ICD Code) Assessment Notes Treatment Notes Treatment Clinical Notes Section Notes 07/08/2024 Iron deficiency (ICD-10 - E61.1) discussed recent blood work woth patient, he has had a colonoscopy only 7 months ago but had a lot of polyps. will send him with 3 cards to check for blood and if positive will need to get him back to dr butt. Plan Of Treatment Treatment Notes Assessment Notes Iron deficiency discussed recent blo od work woth patient, he has had a colonoscopy only 7 months ago but had a lot of polyps. will send him with 3 cards to check for blood and if positive will need to get him back to dr butt. Future Test Test Name Order Date Complete Blood Count Auto Diff IRON PROFILE 10/05/2024 Next Appt Details Provider Name:Vini Moscoso mino, 10/14/2024 08:15:00 AM, [address] [place] [address], [address], [place], [phone], Provider Name:Vini Moscoso chilor, 10/21/2024 10:00:00 AM, [address] [place] [address], [address], [place], [phone], Provider Name:Vini [place] Danis woor, 12/29/2024 07:30:00 AM, [address] [place] [address], Suite [facility], [place], [place], [phone], Provider Name:Vini Moscoso mino, 06/29/2025 07:45:00 AM, [address] [place] [address], Suite [facility], [place], [place], [phone], Provider Name:Vini Moscoso mino, 07/06/2025 09:30:00 AM, [address] [place] [address], [address], [place], [phone], Progress Notes * Deacon ROMODOB:[birth year] (83 yo M)Acc No.[id number]:07/08/2024 Patient:?Deacon ROMO Provider:?Vini Mendoza MD :1940???Age:83 Y???Sex:Male Isaiah e:07/08/2024 Address:[address] [place] [address] [phone] Subjective: * Chief Complaints: * ???Go over [facility] * HPI: ???Symptom(s):?Telehealth?Location of provider rendering services:?[address] [place] [address], [address],?Location of patient:?at address listed in demographics for today's visit,?Patient identification confirmed using:?Name, ,?Telehealth method:?Video conference where patient is visible to the provider of care,?Consent:?Patient verbally consented to treatment, Patient verbally consented to billing insurance company, Patient informed of any privacy concerns related to method of visit,?Total time spend talking with patient (minutes)?20.? scotty is a 83 yo male video telehealth visit to discuss recent lab testing. * ROS:?General/Constitutional:?Denies?Chills.?Denies?Fatigue.?Denies?Fever.?Denies?Headache.?ENT:?Patient denies?decreased sense of smell, any loss of taste, sore throat.?Denies?Sore throat.?Respiratory:?Denies?Cough.?Denies?Shortness of breath at rest.?Denies?Shortness of breath with exertion.?Gastrointestinal:?Denies?Diarrhea.?Denies?Nausea.?Musculoskeletal:?Patient denies?muscle aches.?Peripheral Vascular:?Patient denies?red and blue toes.? * Medical History:? * Surgical History:? * Hospitalization/Major Diagno stic Procedure:? * Medications:?TakingOneTouch Ultra Test Strip TEST BLOOD GLUCOSE TWICE A DAY OneTouch Delica Lancing Dev Miscellaneous as directed Aspir-Low 81 MG Tablet Delayed Release 1 tablet Orally Once a day Xyzal Allergy 24HR 5 MG Tablet 1 tablet in the evening Orally Once a day Fluticasone Propionate 50 MCG/ACT Suspension USE 1 SPRAY IN EACH NOSTRIL ONCE A DAY Metoprolol Succinate ER 50 MG Tablet Extended Release 24 Hour TAKE ONE TABLET BY MOUTH EVERY DAY Montelukast Sodium 10 MG Tablet TAKE ONE TABLET BY MOUTH EVERY EVENING Irbesartan-hydroCHLOROthiazide 150-12.5 MG Tablet TAKE ONE TABLET BY MOUTH EVERY DAY Ozempic (1 MG/DOSE) 4 MG/3ML Solution Pen-injector 1 mg Subcutaneous weekly Ozempic (2 MG/DOSE) 8 MG/3ML Solution Pen-injector 2 mg Subcutaneous weekly Finasteride 5 MG Tablet 1 tablet Orally Once a day Atorvastatin Calcium 10 MG Tablet TAKE ONE TABLET BY MOUTH EVERY DAY Januvia 100 MG Tablet TAKE ONE TABLET BY MOUTH EVERY DAY metFORMIN HCl 1000 MG Tablet TAKE ONE TABLET BY MOUTH TWICE A DAY WITH MEALS Taking OneTouch Ultra Test Strip TEST BLOOD GLUCOSE TWICE A DAY Taking OneTouch Delkarlie Lancing Dev Miscellaneous as directed Taking Aspir- Low 81 MG Tablet Delayed Release 1 tablet Orally Once a day Taking Xyzal Allergy 24HR 5 MG Tablet 1 tablet in the evening Orally Once a day Taking Fluticasone Propionate 50 MCG/ACT Suspension USE 1 SPRAY IN EACH NOSTRIL ONCE A DAY Taking Metoprolol Succinate ER 50 MG Tablet Extended Release 24 Hour TAKE ONE TABLET BY MOUTH EVERY DAY Taking Montelukast Sodium 10 MG Tablet TAKE ONE TABLET BY MOUTH EVERY EVENING Taking Irbesartan-hydroCHLOROthiazide 150-12.5 MG Tablet TAKE ONE TABLET BY MOUTH EVERY DAY Taking Ozempic (1 MG/DOSE) 4 MG/3ML Solution Pen-injector 1 mg Subcutaneous weekly Taking Ozempic (2 MG/DOSE) 8 MG/3ML Solution Pen-injector 2 mg Subcutaneous weekly Taking Finasteride 5 MG Tablet 1 tablet Orally Once a day Taking Atorvastatin Calcium 10 MG Tablet TAKE ONE TABLET BY MOUTH EVERY DAY Taking Januvia 100 MG Tablet TAKE ONE TABLET BY MOUTH EVERY DAY Taking metFORMIN HCl 1000 MG Tablet TAKE ONE TABLET BY MOUTH TWICE A DAY WITH MEALS Not-Taking/PRNOzempic (0.25 or 0.5 MG/DOSE) 2 MG/3ML Solution Pen-injector as directed Subcutaneous 0.25 mg weekly fminth then .5mg weekly Valtrex 1 GM Tablet 2 tablet Orally every 12 hrs Medication List reviewed and reconciled with the patientNot-Taking/PRN Ozempic (0.25 or 0.5 MG/DOSE) 2 MG/3ML Solution Pen-injector as directed Subcutaneous 0.25 mg weekly fminth then .5mg weekly Not-Taking/PRN Valtrex 1 GM Tablet 2 tablet Orally every 12 hrs Medication List reviewed and reconciled with the patient * Allergies:?N.K.D.A.yes[Aller gies Verified] Objective: * Vitals:?Ht: 70, Wt: 189, BMI :27.12, Wt-k.73. weight is 189 at home? no Bp? taken at home no temp. * Examination: ???General Examination: ?GENERAL APPEARANCE:?alert, well hydrated, in no distress.? Assessment: * Assessment: 1.?Iron deficiency - E61.1 ( Primary)??? Plan: * Treatment: * Procedure Codes:? * * Sign off status: Completed true * Provider:?Vini Mendoza MD Date:?0 07/08/2024 Generated for Meg brenner/Min/eTransmitting on:?08/04/2024 08:26 AM EST History and Physical Notes * HPI (History of Present Illness) Category Sub-Category Detail Notes Category Not es Symptom(s) Telehealth Location of [facility] rendering services:: [address], [address] scotty is a 83 yo male video telehealth visit to discuss recent lab testing. Location of patient:: at address listed in demographics for today's visit Patient identification confirmed using:: Name, Telehealth method:: Video co nference where patient is visible to the provider of care Consent:: Patient verbally c onsented to treatment, Patient verbally consented to billing insurance company, Patient informed of any privacy concerns related to method of visit Total time spend talking with patient (m inutes): 20 Examination Category Sub-Category Detail Notes Category Not es General Examination GENERAL APPEARANCE: alert, w ell hydrated, in no distress
--- OUTSIDE RECORDS SUMMARY | 2024-08-04 08:27 | XMS_ITS ---
Author Organization [facility] Address [address] [place] [address] Care Team Providers Care Certification Engineer Name Role Phone Vini Mendoza MD Primary Care Provider Cedrick Becerra Jr Unavailable Allergies Allergen (clinical drug ingredient) Drug/Non Drug Allergy documented on EMR Reaction Allergy Type Onset Date Status seasonal (uncoded) Unknown Allergy A ctive REASON FOR VISIT Patient presents today for a colon screening Medications Medication SIG (Take, Route, Frequency, Duration) [...] in each nost ril Nasally PRN Unknown Immunizations Vaccine Route Administration Date Status Comme nts Influenza Unknown 12/09/2023 Refused Problems Problem Type SNOMED Code ICD Code Onset Dates Problem Status W/U Status Risk Notes Problem 800253393 FH: colon cancer (Z80.0) Active confirmed Vital Signs Temperature 97.7 degrees Fahrenheit 12/09/19 24 Blood pressure systolic 000 mm Hg 12/09/19 24 Blood pressure diastolic 00 mm Hg 024 Height 69.5 in 12/09/2023 Weight 221 lb 6 oz lbs 12/09/2023 BMI 32.22 kg/m2 12/09/2023 Encounters Encounter Location Date Provider Diagnosis [facility] [address] [place] [address] 12/09/2023 Cedrick Justin Jr Colon cancer screening Z12.11 ; Long-term use of aspirin therapy Z79.82 and FH: colon cancer Z80.0 Assessments Encounter Date Diagnosis (ICD Code) Assessment Notes Treatment Notes Treatment Clinical Notes Section Notes 12/09/2023 Colon cancer screening (ICD-10 - Z12.11) Digestive diseases material was printed We discussed colonoscopy today. We discussed risks and benefits of the procedure today. He understands these and agrees to proceed. This will be scheduled at his convenience. He is advised stop aspirin one week before the procedure. 12/09/2023 Long-term use of aspirin therapy (ICD-10 - Z79.82) We discussed colonoscopy today. We discussed risks and benefits of the procedure today. He understands these and agrees to proceed. This will be scheduled at his convenience. He is advised stop aspirin one week before the procedure. 12/09/2023 FH: colon cancer (ICD-10 - Z80.0) We discussed colonoscopy today. We discussed risks and benefits of the procedure today. He understands these and agrees to proceed. This will be scheduled at his convenience. He is advised stop aspirin one week before the procedure. Plan Of Treatment Medication Medication Name Sig Start Date Stop [...] Name:Cedrick licona Jr, 01/25/2025 09:20:00 AM, [address], [address], [place], [address], Progress Notes * MAYITO OLIVIER:[birth year] (83 yo M)Acc No.[id number]:12/09/2023 Progress Notes Patient:?TOMEKA OLIVIER Provider:?Cedrick Justin MD :1940???Age:83 Y???Sex:Male Isaiah e:12/09/2023 Address:[address] [place] [address], [place] [id number] Pcp:Vini Mendoza MD Subjective: * Chief Complaints: * ???1. Patient presents today for a colon screening. * HPI: ???New symptom(s):? James returns today for followup. We last saw him in August 2022. Since that time he's been doing well. He reports no bowel problems. He has no complaints of rectal bleeding, abdominal, or rectal pain. Last colonoscopy showed no adenomas. There is a family history of colon cancer. * ROS:?General/Constitutional:?Change in appetite?denies.?Fatigue?denies.?ENT:?Patient denies?difficulty swallowing.?Respiratory:?Patient denies?shortness of breath.?Cardiovascular:?Patient denies?chest pain.?Gastrointestinal:?Comments?See HPI for details.?Genitourinary:?Difficulty urinating?denies.?Incontinence?denies.?Musculoskeletal:?Patient denies?muscle aches.?Skin:?Patient denies?pruritis.?Neurologic:?Patient denies?low back pain.?Psychiatric:?Patient denies?mental or physical abuse.? * Medical History:?colonoscopy 02/11/19, negative for adenomas. Five-year followup optional based on age., Hypertension, Basal cell carcinoma, BPH, Elevated cholesterol, type II diabetes, Hearing loss. * Surgical History:?removal of basal cell carcinomas , deviated septum repair , cataract-lens implants both eyes , lasik 1993, prostate surgery to enlarge the prostate , Ear surgery . * Family History:?Father: dece ased 78 yrs, SEPSIS.?Mother: 75 yrs, [place], diagnosed with Heart disease.? This is reviewed and is noncontributory. There is a family history of colon cancer in his son. * Social History:?Tobacco Use:?Tobacco Use/Smoking?Patient is a: nonsmoker.?Drugs/Alcohol:?Alcohol Screen?Points: 1, Interpretation: Negative.?Miscellaneous:?Marital status: . Occupation: retired. ???Tobacco use is negative, alcohol use is infrequent. * Medications:?Unknown Valsart an-hydroCHLOROthiazide 320-12.5 MG Tablet 1/2 tablet Orally Once a day, Unknown Atorvastatin Calcium 20mg Tablet 1/2 tablet Orally Once a day, Unknown metFORMIN HCl 500 MG Tablet 2 TABLETS Orally Twice a day, Unknown Singulair 10 MG Tablet 1 tablet Orally Once a day, Unknown Metoprolol Succinate ER 50 MG Tablet Extended Release 24 Hour 1 tablet Orally Once a day, Unknown Flonase 50 MCG/ACT Suspension 1 spray in each nostril Nasally PRN, Unknown Aspir-Low 81 MG Tablet Delayed Release 1 tablet Orally Once a day, Unknown Irbesartan 75 MG Tablet 1 tablet Orally Once a day, Medication List reviewed and reconciled with the patient * Allergies:?Seasonal. Objective: * Vitals:?Wt: 221 lb 6 oz, Ht: 69.5 in, BMI:32.22 Index, BP: 000/00 mm Hg, Temp: 97.7. * Examination: ???General Examination: ?GENERAL APPEARANCE:?in no acute distress.?HEAD:?normocephalic.?EYES:?sclera non-icteric.?ORAL CAVITY:?mucosa moist.?NECK/THYROID:?no lymphadenopathy.?SKIN:?anicteric.?HEART:?S1, S2 normal, no murmurs.?LUNGS:?clear to auscultation bilaterally.?CHEST:?normal shape and expansion.?ABDOMEN:?soft, nontender, nondistended, bowel sounds present, no organomegaly .?EXTREMITIES:?no clubbing, cyanosis, or edema.?PSYCH:?cognitive function intact.? Assessment: * Assessment: 1.?Long-term use of aspirin therapy - Z79.82 (Primary)?2.?Colon cancer screening - Z12.11?3.?FH: colon cancer - Z80.0? We discussed colonoscopy tod ay. We discussed risks and benefits of the procedure today. He understands these and agrees to proceed. This will be scheduled at his convenience. He is advised stop aspirin one week before the procedure. Plan: * Treatment: 2.?FH: colon cancer?Procedure: COLONOSCOPY (Ordered for 12/09/2023) * Immunizations:? Influenza (Not administered - Refused: Patient decision) * Procedure Codes:?G9903 Pt sc rn tbco id as non user, G9744 PATIENT NOT ELIG D/T ACTIVE DX HTN * Preventive Medicine:? ??Counseling:?Care goal follow-up plan:?Above Normal BMI Follow-up?Giving encouragement to exercise,?BMI management provided?Yes.? * Follow Up:?1 Year * * Sign off status: Completed true * Provider:?Cedrick Justin MD Date:?0 12/09/2023 Generated for Meg brenner/Min/eTransmitting on:?08/04/2024 08:27 AM EST History and Physical Notes * HPI (History of Present Illness) Category Sub-Category Detail Notes Category Not es New symptom(s) James returns t fidelina for followup. We last saw him in August 2022. Since that time he's been doing well. He reports no bowel problems. He has no complaints of rectal bleeding, abdominal, or rectal pain. Last colonoscopy showed no adenomas. There is a family history of colon cancer. Examination Category Sub-Category Detail Notes Category Not es General Examination GENERAL APPEARANCE: in no acute di stress HEAD: normocephalic EYES: sclera non-icteric NECK/THYROID: no lymphadenopathy HEART: S1, S2 normal, no mu rmurs CHEST: normal shape and exp ansion LUNGS: clear to auscultatio n bilaterally ABDOMEN: soft, nontender, non distended, bowel sounds present, no organomegaly SKIN: anicteric EXTREMITIES: no clubbing, cyanosi s, or edema PSYCH: cognitive function i ntact ORAL CAVITY: mucosa moist
--- OUTSIDE RECORDS SUMMARY | 2024-08-04 08:27 | XMS_ITS ---
Author Organization Vini Mendoza MD Address [address] [place] [phone] Care Team Providers Care Slip Cover Sewer Name Role Phone Vini Mendoza Primary Care Provider REASON FOR VISIT Singulair not working Encounters Encounter Location Date Provider Diagnosis Vini Mendoza MD [address] [facility] [address] [place] [phone] 07/19/2024 Vini Mendoza Plan Of Treatment Next Appt Details Provider Name:Vini herzog, 10/14/2024 08:15:00 AM, [address] [facility], Suite [facility], [place], [place], [phone], Provider Name:Vini woor, 10/21/2024 10:00:00 AM, [address], [address], [place], [phone], Provider Name:Vini Moscoso ier, 12/29/2024 07:30:00 AM, [address], [address], [place], [phone], Provider Name:Vini Moscoso ier, 06/29/2025 07:45:00 AM, [address] [place] [address] Drive, [address], [place], [phone], Provider Name:Vini Moscoso ier, 07/06/2025 09:30:00 AM, [address] [place] [address], [address], [place], [phone], Progress Notes * Deacon ROMODOB:[birth year] (83 yo M)Acc No.[id number]:07/19/2024 Patient:?Deacon ROMO :1940???Age:83 Y???Sex:Male Address:[address] [place] [address], [place] [address] * true * Date:? Generated for Meg brenner/Min/eTransmitting on:?08/04/2024 08:26 AM EST
--- OUTSIDE RECORDS SUMMARY | 2024-08-04 08:27 | XMS_ITS ---
Author Organization [facility] Address [address] [place] [address] Care Team Providers Care Software Quality Assurance Analyst Name Role Phone Vini Mendoza MD Primary Care Provider Jennifer Justin Jr, Cedrick Blank REASON FOR VISIT pathology Encounters Encounter Location Date Provider Diagnosis [facility] [address] [place] [address] 01/29/2024 Cedrick Justin Jr Plan Of Treatment Next Appt Details Provider Name:Cedrick licona Jr, 01/25/2025 09:20:00 AM, [address], [address], [place], [address], Progress Notes * CHARLINETOMEKADOB:[birth year] (83 yo M)Acc No.[id number]:01/29/2024 Patient:?REJITOMEKA VILLALTA :1940???Age:83 Y???Sex:Male Address:[address] [place] [address] * true * Date:? Generated for Printi elidia/Min/eTransmitting on:?08/04/2024 08:27 AM EST
--- OUTSIDE RECORDS SUMMARY | 2024-08-04 08:28 | XMS_ITS | Patient Health Record ---
Author Organization [facility] Address [address] [place] [address] Care Team Providers Care Clinical Editor Name Role Phone Kelly RIGGS, Vini Primary Care Provider Cedrick Becerra Jr [phone] Allergies Allergen (clinical drug ingredient) Drug/Non Drug Allergy documented on EMR Reaction Allergy Type Onset Date Status seasonal (uncoded) Unknown Allergy A ctive Results Component Value Reference Range Notes Glucose, Whole Blood Reviewed date:01/27/2024 04:42:27 PM Interpretation: Performing Lab:[facility], [address] [place] [phone] Notes/Report: Glucose, Whole Blood 133 60-115 mg/dL METER # : [id number] Pathology Reviewed date:01/29/2024 02:29:14 PM Interpretation: Performing Lab:[facility], [address] [place] [phone] Notes/Report: ----- Name: Nury Romo Age/Sex: 83/M : 1940 Unit#: [id number] Attend Dr: Cedrick Justin MD Re01/26/24 Status : [facility] Location: [facility] Disch: ----- SPEC : [id number] RECD : 01/26/24 STATUS: STANISLAW CARDOZO NUM: [id number] DEISY: 01/26/[address]: Cedrick Justin MD ENTERED: 01/26/24 13 SP TYPE: Surgical OTHR DR: Vini Mendoza MD ORDERED: HE Stain/15 , Gross Micro L4/5 Diagnosis A. Cecum, #1, polypectomy: Fragments of sessile serrated lesion/polyp; negative for cytologic dysplasia. B. Colon, right, polypectomies: Fragments of tubular adenomata; negative for high-grade dysplasia or carcinoma. C. Colon, hepatic flexure, polypectomy: Fragments of colonic mucosa with thermal artifact. D. Colon, transverse , polypectomies: Tubular adenomata; negative for high-grade dysplasia or carcinoma. E. Colon, 25 cm, polypectomy: Hyperplastic mucosal polyp. Clinical History Pre-Op Dx: Screening Post-Op Dx: Colon polyps Microscopic Description A-E. Microscopic sec tions reviewed. Material Received A. Polyp cecum #1 B. Polyps right colon C. Hepatic flexure polyp D. Transverse colon polyps E. Polyp at 25 Gross Description Received in 5 parts. Part A: Received in formalin labeled ?cecum polyp? are 3 pieces of young tissue all measuring 0.2 cm, all submitte d in cassette labeled A. Part B: Received in formalin labeled ?right colon polyps? are multiple pieces of young-pink tissue measuring fro m 0.1-0.7 cm, all submitted in cassette labeled B. Part C: Received in formalin labeled ?hepatic flexure polyp? is 1 piece of young tissue CONTINUED ON NEXT PAGE ----- Name: Nury Romo Age/Sex: 83/M : 1940 Unit#: [id number] Attend Dr: Cedrick Justin MD Re01/26/24 Status : [facility] Location: [facility] Disch: ----- SPEC : [id number] RECD : 01/26/24-1157 STATUS: STANISLAW CARDOZO NUM: [id number] DEISY: 01/26/24-[address] [facility] [address]: Cedrick Justin MD ENTERED: 01/26/24-12 13 SP TYPE: Surgical OTHR DR: Vini Mendoza MD ORDERED: HE Stain/15 , Gross Micro L4/5 Gross Description (Continued) measuring 0.2 cm, al l submitted in cassette labeled C. Part D: Received in formalin labeled ?transverse colon polyps? are 6 pieces of young-pink tissue measuring fro m 0.2-0.6 cm, all submitted in cassette labeled D. Part E: Received in formalin labeled ?polyp at 25 cm is 1 piece of young tissue measuring 0.2 cm, all submitte d in cassette labeled E. FM Copies To: Vini Mendoza MD [facility] [address] [place] [address] Cedrick Justin MD [facility] [address] [place] [address] ----- Signed (signature on file) Deacon Kasper MD 01/28/24 1537 ----- END OF REPORT Reason For Referral No Information Medications Medication SIG (Take, Route, Frequency, Duration) [...] Once a day for 30 day(s) Unknown Immunizations Vaccine Route Administration Date Status Comme nts Flu vaccine no Preserv 3 and > Unknown 06/01/2015 Admin istered Influenza Unknown 04/15/2018 Administered Influenza Unknown 03/18/2022 Administered Influenza Unknown 12/09/2023 Refused Problems Problem Type SNOMED Code ICD Code Onset Dates Problem Status W/U Status Risk Notes Problem 643274734 Colon cancer screening (Z12.11) Active confirmed Problem 080632618 Personal history of colonic polyps (Z86.010) Active confirmed Problem 742925409 Long-term use of aspirin therapy (Z79.82) Active confirmed Problem 242514473 Long-term curren t use of high risk medication other than anticoagulant (Z79.899) Active confirmed Problem 070028736 FH: colon cancer (Z80.0) Active confirmed Problem 01931812 Hypertension, unspecified type (I10) Active confirmed Vital Signs Temperature 97.7 degrees Fahrenheit 12/09/2023 Blood pressure diastolic 00 mm Hg 12/09/2023 Height 69.5 in 12/09/2023 Blood pressure systolic 000 mm Hg 12/09/2023 Weight 221 lb 6 oz lbs 12/09/2023 BMI 32.22 kg/m2 12/09/2023 Encounters Encounter Location Date Provider Diagnosis [facility] [address] [place] [phone] 01/26/2024 Cedrick Justin Jr Colon cancer screening Z12.11 ; Family history of colon cancer Z80.0 and Colon polyps K63.5 [facility] [address] [place] [phone] 12/09/2023 Cedrick Justin Jr Colon cancer screening Z12.11 ; Long-term use of aspirin therapy Z79.82 and FH: colon cancer Z80.0 [facility] [address] [place] [phone] 08/31/2023 Cedrick Justin Jr [facility] [address] [place] [address] [address] 01/29/2024 Cedrick Justin Jr Assessments Encounter Date Diagnosis (ICD Code) Assessment [...] stop aspirin one week before the procedure. 01/26/2024 Colon polyps (ICD-10 - K63.5) 12/09/2023 FH: colon cancer (ICD-10 - Z80.0) We discussed colonoscopy today. We discussed risks and benefits of the procedure today. He understands these and agrees to proceed. This will be scheduled at his convenience. He is advised stop aspirin one week before the procedure. Plan Of Treatment Future Test Test Name Order Date COLONOSCOPY 11/22/2015 COLONOSCOPY 01/26/2019 COLONOSCOPY 12/09/2023 Next Appt Details Provider Name:Cedrickmaikel licona , 01/25/2025 09:20:00 AM, [address] [place] [address], [facility] [address] [address], [place], [address], Insurance Providers Payer Name Payer Address Payer Phone Subscriber Number Group Number Insured Name Patient Relationship to Insured Coverage Start Date Coverage End Date [facility] [address] [place], [place] [phone] [id number] DEACON ROMO Self - patient is the insured [employer] [address] [place] [id number] DEACON ROMO Self - patient is the insured Medical (General) History Medical History History ICD Code colonoscopy 02/11/19, negativ e for adenomas. Five-year followup optional based on age. hypertension basal cell carcinoma BPH elevated cholesterol type II diabetes hearing loss Surgical History Surgery Date(Month/Year) removal of basal cell carcinomas deviated septum repair cataract-lens implants both eyes lasik 1993 prostate surgery to enlarge the prostate Ear surgery
--- OUTSIDE RECORDS SUMMARY | 2024-08-04 08:28 | XMS_ITS ---
Author Organization Vini Mendoza MD Address [address] [place] [phone] Care Team Providers Care Continuous Still Operator Name Role Phone Vini Mendoza Primary Care Provider [phone] Results Component Value Reference Range Notes Occult Blood, Stool, Guaiac Reviewed date:07/20/2024 08:37:52 AM Interpretation:Negative Performing Lab: Notes/Report: Negative Occult Blood, Stool, Guaiac NegX3 REASON FOR VISIT 3 stool cards returned Encounters Encounter Location Date Provider Diagnosis Vini Mendoza MD [address] [place] [phone] 07/19/2024 Vini Mendoza Colon cancer screening Z12.11 Assessments Encounter Date Diagnosis (ICD Code) Assessment Notes Treatment Notes Treatment Clinical Notes Section Notes 07/19/2024 Colon cancer screening (ICD-10 - Z12.11) Plan Of Treatment Next Appt Details Provider Name:Vini Moscoso mino, 10/14/2024 08:15:00 AM, [address], [address], [place], [phone], Provider Name:Vini Moscoso mino, 10/21/2024 10:00:00 AM, [address], [address], [place], [place], [phone], Provider Name:Vini Moscoso chilor, 12/29/2024 07:30:00 AM, [address] [place] [address], Suite [facility], [place], [place], [phone], Provider Name:Vini Moscoso mino, 06/29/2025 07:45:00 AM, [address] [place] [address], Suite [facility], [place], [phone], Provider Name:Vini Moscoso chilor, 07/06/2025 09:30:00 AM, [address] [place] [address], [address], [place], [place], [phone], Progress Notes * Deacon ROMODOB:[birth year] (83 yo M)Acc No.[id number]:07/19/2024 Patient:?Deacon ROMO :1940???Age:83 Y???Sex:Male Address:[address] [place] [address] [place] [address] Subjective: * Chief Complaints: * ???3 stool cards returned * Medical History:? * Surgical History:? * Hospitalization/Major Diagno stic Procedure:? * Medications:? Objective: * Vitals:? * Physical Examination:? Assessment: * Assessment: 1.?Colon cancer screening - Z12.11??? Plan: * Treatment: ? Value Reference Range ?Occult Blood, Stool, Guaiac NegX3 * Procedure Codes:? * true * Date:? Generated for Meg brenner/Min/Jordenitting on:?08/04/2024 08:27 AM EST
--- OUTSIDE RECORDS SUMMARY | 2024-08-04 08:28 | XMS_ITS | Continuity of Care Document ---
Author Name [facility] Organization [facility] Care Team Providers Care Pull Worker Name Role Phone [facility] Unavailable Unavailable Problems Combined list of problems from Department of [facility] and [facility] facilities. It does not include entries that were removed or entered in error. Problem Status Onset Date Problem Type Date of Resolution Comments Source Benign essential hypertension Active Condition [facility] [place] [facility] Benign Prostatic Hypertrophy Without Outflow Obstruction ([facility] [id number]) [facility] [place] [facility] Diabetes Mellitus Type 2 ([facility] [id number]) [facility] [place] [facility] Hyperlipidemia ([facility] [id number]) Active Condition [facility] [place] [facility] Diagnosis: ICD-10-CM Z46.1 Encounter for fitting and adjustment of hearing aid Active Diagnosis [facility] [place] [facility] Diagnosis: ICD-10-CM I10 Essential (primary) hypertension Active Diagnosis 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 [place] [facility] Medications Combined list of outpatient medications from Department of Defense and [facility] facilities.Medications provided include 1) outpatient medications from the last 15 months, and 2) patient-reported medications. Medication Details Route Status Patient Instructions Prescription Expires Prescription Number Last Dispense Date Ordering Provider Order Date Order Qty Source ASPIRIN 81MG TAB,CHEWABL E CHEW ONE TABLET BY MOUTH ONCE DAILY ORAL ACTIVE RA NAIF ROLAND 2018 [facility] [place] [facility] ATORVASTATI N CA 20MG TAB TAKE ONE-HALF TABLET BY MOUTH EVERY EVENING ORAL ACTIVE RA NAIF ROLAND 2018 [facility] [place] [facility] FINASTERIDE 1MG TAB TAKE ONE TABLET BY MOUTH ONCE DAILY ORAL ACTIVE MOHAMUD, MISSY VIJAYA 2023 [facility] [place] [facility] FLUTICASONE PROPIONATE (FLUTICASON E PROPIONATE) , 50MCG, SPRAY SUSP, NASAL, APOTEX JEANINE, 16 g AER W/ADAP Cancele d [id number] : 2023 0 Pharmac y Data Transac tion Service Facilit y FLUTICASONE PROPIONATE (FLUTICASON E PROPIONATE) , 50MCG, SPRAY SUSP, NASAL, APOTEX JEANINE, 16 g AER W/ADAP Active [id number] 4 2023 16 Pharmac y Data Transac tion Service Facilit y HYDROCHLORO THIAZIDE 12.5MG/IRBE SARTAN 150MG TAB TAKE ONE TABLET BY MOUTH ONCE DAILY ORAL ACTIVE RA NAIF ROLAND 2018 [facility] [place] [facility] HYDROCHLORO THIAZIDE 12.5MG/IRBE SARTAN 150MG TAB TAKE ONE TABLET BY MOUTH ONCE DAILY ORAL ACTIVE MOHAMUD, MISSY VIJAYA 2023 [facility] [place] [facility] JANUVIA (SITAGLIPTI N PHOSPHATE), 100MG, TABLET, ORAL, [employer] 30 ea. BOTTLE Active [id number] 4 2023 90 Pharmac y Data Transac tion Service Facilit y LORATADINE 10MG TAB TAKE ONE TABLET BY MOUTH ONCE DAILY ORAL ACTIVE MOHAMUD, MISSY VIJAYA 2023 [facility] [place] [facility] METFORMIN HCL 1000MG TAB TAKE ONE TABLET BY MOUTH TWICE DAILY ORAL ACTIVE RA NAIF ROLAND 2018 [facility] [place] [facility] METOPROLOL SUCCINATE 50MG TAB,SA TAKE ONE TABLET BY MOUTH ONCE DAILY ORAL ACTIVE RA NAIF ROLAND 2018 [facility] [place] [facility] MONTELUKAST NA 10MG TAB TAKE ONE TABLET BY MOUTH ONCE DAILY ORAL ACTIVE RA NAIF ROLAND 2018 [facility] [place] [facility] MONTELUKAST SODIUM (MONTELUKAS T SODIUM), 10 MG, TABLET, ORAL, TORRENT PHARMAC, 90 ea. BOTTLE Active [id number] 4 2023 90 Pharmac y Data Transac tion Service Facilit y MONTELUKAST SODIUM (montelukas t sodium), 10 MG, TABLET, ORAL, UNICHEM PHARMAC, 90 ea. BOTTLE Active [id number] 4 2023 90 Pharmac y Data Transac tion Service Facilit y Immunizations Combined list of available immunizations from the Department of Defense and Veterans Affairs facilities. Immunization Series Date Given Administered By Site Reaction Lot Number CVX Code Drug Pain Management Physician Status Comments Source INFLUENZA, UNSPECIFIED FORMULATION 2022 88 complet ed [facility] [place] [facility] [facility] INFLUENZA, UNSPECIFIED FORMULATION 2021 88 complet ed [facility] [place] [facility] influenza, high-dose, quadrivalent 2020 [place], () Not Given influenza , high-dose , quadrival ent [facility] COVID-19 (MODERNA), MRNA, LNP-S, PF, 100 MCG/0.5 ML DOSE 2 2020 207 complet ed MOD; [id number]; 1 [place] [facility] [place] [facility] COVID-19 (MODERNA), MRNA, LNP-S, PF, 100 MCG/0.5 ML DOSE 1 2020 207 complet ed MOD; [id number]; 1 [facility] [place] [facility] INFLUENZA, UNSPECIFIED FORMULATION 2019 88 complet ed [facility] [place] [facility] INFLUENZA, SEASONAL, INJECTABLE 2018 141 complet ed [...] 146 11/27/2023 08:49:19 [facility] [place] [facility] DIASTOLIC BLOOD PRESSURE 74 11/27/2023 08:49:19 VA [...] from Department of Veterans Affairs facilities going backup to the last 18 months, not all VA inpatient encounters are included; 2) Encounters from the Department of Defense facilities going backup to 280 months. Location Location Details Encounter Type Encounter Number Reason For Visit Attending Provider ADM Date DC Date Status Disposition Source [facility] [place] Out[facility] Encounter [id number] 03/01 [facility] [place] [facility] [facility] [place] Outpatient Encounter [id number] Diagnos is: ICD-10- CM Z02.89 Encount er for other adminis trative examina tions JINA ROWE 03/19 [facility] [place] [facility] [facility] [place] Outpatient Encounter [id number] Diagnos is: ICD-10- CM Z02.89 Encount er for other adminis trative examina tions JAMEY ELIZABETH UREN L 03/25 [facility] [place] HEARING AID FITTING/CH ECKING [id number] Diagnos is: ICD-10- CM Z46.1 Encount er for fitting and adjustm ent of hearing aid MARKDHARMESHJAMEYN L 03/25 [facility] [place] [facility] [facility] OFFICE O/P EST LOW 20-29 MIN [id number] Diagnos is: ICD-10- CM H74.91 Unspeci fied disorde r of right middle ear and mastoid HILDREW,DO UGLAS 04/01 [facility] [place] [facility] HEARING AID REPAIR/MOD IFYING [id number] Diagnos is: ICD-10- CM Z46.1 Encount er for fitting and adjustm ent of hearing aid MARKDHARMESHJAMEY L 04/27 [facility] [place] [facility] [facility] [place] [facility] HEARING AID FITTING/CH ECKING [id number] Diagnos is: ICD-10- CM Z46.1 Encount er for fitting and adjustm ent of hearing aid PJ PERAZA I 06/03 [facility] [place] [facility] [facility] Outpatient Encounter [id number] 07/02 [facility] [place] [facility] [facility] [place] [facility] Outpatient Encounter [id number] 10/08 [facility] [place] [facility] [facility] [place] [facility] OFFICE O/P EST MOD 30 MIN [id number] Diagnos is: ICD-10- CM I10 Essenti al (primar y) hyperte nsion MOHAMUD,L EDGARD VIJAYA 11/26 [facility] [place] [facility] [facility] [place] [facility] Outpatient Encounter [id number] 11/26 [facility] [place] [facility] [facility] [place] [facility] HEARING AID FITTING/CH ECKING [id number] Diagnos is: ICD-10- CM Z46.1 Encount er for fitting and adjustm ent of hearing aid Gris DEL ROSARIO 12/09 [facility] [place] [facility] Social History Combined list of available smoking, tobacco, and other social history from Department of Defense and Veterans Affairs facilities. Social History Type Response Date Comment Sourc e Tobacco smoking status NHIS VA-TOBACCO FORMER USER 11/27/2023 [facility] [place] [facility] History of tobacco use VA-TOBACCO QUIT 15 YRS OR MORE 11/27/2023 [facility] [place] [facility] History of tobacco use VA-TOBACCO NEVER USED 11/26/2022 [facility] [place] [facility] History of tobacco use VA-TOBACCO NEVER USED 11/26/2021 [facility] [place] [facility] History of tobacco use VA-TOBACCO NEVER USED 05/01/2020 [facility] [place] [facility] History of tobacco use VA-TOBACCO QUIT 15 YRS OR MORE 04/19/2019 [facility] [place] [facility] This section is an empty social history section. DoD Plan of Care List of future care activities from Department of Veterans Affairs facilities. Additional future care activities may be listed in the Assessment and Plan section. Date/Time Care Activity Care Activity Detail Facili ty 11/30/2024 AMBULATORY - MEDICINE AMBULATORY - MEDICI NE [facility] [place] [facility]
== END 2024-08-04 09:24 | disposition home or self-care (01) ==
PROVIDERS: PCP Internal Medicine; Visit Provider Urology
DX: R31.0 Gross hematuria (principal)

== ENCOUNTER → 2024-08-04 08:10 | Outpatient (BNVA) | payer MEDICARE, OTHER, SELFPAY | PROVIDERS: PCP Internal Medicine; Visit Provider Urology | DX: Z12.5 Encounter for screening for malignant neoplasm of prostate (principal); N40.1 Benign prostatic hyperplasia with lower urinary tract symptoms | CPT/HCPCS: 51798; 81003; 99212 ==

== ENCOUNTER 2024-10-14 10:33 | Outpatient (REF) | payer MEDICARE, OTHER, SELFPAY ==
[2024-10-14 10:35] LABS: MANUAL DIFF FLAG NO
[2024-10-14 10:58] LABS: Basophils Percent Auto 0.4 % (0-2); Eosinophils Absolute Auto 0.1 X10*3/uL (0.0-0.4); Eosinophils Percent Auto 1.7 % (0-4); Hematocrit 30.6 % (42.0-52.0); Hemoglobin 9.2 g/dl (14.0-18.0); Imm Gran Abs Auto 0.05 X10*3/uL (0.00-0.03); Imm Gran Pct Auto 0.7 % (0.0-0.4); Lymphocytes Absolute Auto 1.6 X10*3/uL (1.2-4.9); Lymphocytes Percent Auto 22.9 % (20-40); Mean Corpuscular HGB Conc 30.1 g/dl (31.0-36.0); Mean Corpuscular Hemoglobin 24.7 pg (27.0-33.0); Mean Platelet Volume 10.7 fL (9.4-12.4); Monocytes Absolute Auto 0.8 X10*3/uL (0.1-1.2); Monocytes Percent Auto 11.7 % (2-11); NRBC Pct Auto 0.3 /100WBC (0.0-0.2); Neutrophils Absolute Auto 4.4 x10*3/uL (2.0-8.3); Neutrophils Percent Auto 62.6 % (45-73); Platelet Count 220 X10*3/uL (160-400); Red Blood Count 3.73 X10*6/uL (4.60-5.80); Red Cell Distribution Width 15.5 % (11.0-16.0)
--- OUTSIDE RECORDS SUMMARY | 2024-10-14 11:00 | XMS_ITS ---
Author Organization Vini Mendoza MD Address [address] [place] [phone] Care Team Providers Care Social Sciences Department Chair Name Role Phone Vini Mendoza Primary Care Provider REASON FOR VISIT Singulair not working Encounters Encounter Location Date Provider Diagnosis Vini Mendoza MD [address] [facility] [address] [place] [address] [id number] 07/19/2024 Vini Mendoza Plan Of Treatment Next Appt Details Provider Name:Vini herzog, 10/21/2024 10:00:00 AM, [address] [facility], [address] [facility], [place], [place], [phone], Provider Name:Vini woor, 12/29/2024 07:30:00 AM, [address], [address], [place], [phone], Provider Name:Vini Moscoso ier, 06/29/2025 07:45:00 AM, [address], [address], [place], [phone], Provider Name:Vini Moscoso ier, 07/06/2025 09:30:00 AM, [address] [facility], [address], [place], [phone], Progress Notes * Deacon ROMODOB:[birth year] (83 yo M)Acc No.[id number]:07/19/2024 Patient:?Deacon ROMO :1940???Age:83 Y???Sex:Male Address:[address] [place], [place] [address] [address] * true * Date:? Generated for Meg brenner/Min/eTransmitting on:?10/14/2024 11:00 AM EDT
--- OUTSIDE RECORDS SUMMARY | 2024-10-14 11:00 | XMS_ITS | Encounter Summary ---
Author Name [facility] [place] Organization [facility] [place] Address [address] [place] [address] Care Team Providers Care Qualitative Field Project Manager Name Role Phone MISSY MALLORY Primary [...] Martínez's Name Patient's Relationship to Policy Martínez AEST. [facility] (WNR) MEDICARE ADVANTAGE [facility] (WNR) Jun 01, 2023 [id number] TOMEKA OLIVIER PATIENT AETNA [facility] (WNR) MEDICARE ADVANTAGE [place] Jun 01, 2021 [id number] [phone] TOMEKA OLIVIER PATIENT FOR LIFE TFL* Jun 01, 2017 [id number] TOMEKA OLIVIER PATIENT Selected Encounter This section includes the information on record at [place] for the Encounter. Date/Time Encounter Type Encounter Description Reason Provider Source Dec 10, 2023 08:00 AM HEARING AID FITTING/CHECKIN G AUDIOLOGY ICD-10-CM Z46.1 Encounter for fitting and adjustment of hearing aid DEVANTE DEL ROSARIO Encounter Template Text not used by [place] Assessments - Encounter Diagnoses This section includes the primary and secondary diagnoses documented for the Encounter. Date/Time Primary/Secondary Diagnosis Diagnosis Name Provider Source Dec 10, 2023 08:22 AM PRIMARY Encounter for fitting and adjustment of hearing aid DEVANTE DEL ROSARIO [facility] [place] [facility] Dec 10, 2023 08:22 AM SECONDARY Sensorineural hearing loss, bilateral DEVANTE DEL ROSARIO [facility] [facility] Social History: Smoking Status (Most current) and Tobacco Use (All prior to encounter date) This section includes the most current, and the historical, smoking and tobacco- related health factors from the [place] facility where the Encounter took place. Current Smoking Status This section includes the most current smoking, or tobacco-related health factor, from the [place] facility where the Encounter took place. Date/Time Current Smoking Status Comment Facil ity Nov 27, 2023 09:00 AM VA-TOBACCO [facility]ER [facility] Tobacco Use History This section includes a history of the smoking, or tobacco-related health factors, that were collected on or before the date of the Encounter. The data comes from the [place] facility where the Encounter took place. Date/Time Smoking Status/Tobacco Use Comment F acility Nov 27, 2023 09:00 AM VA-TOBACCO QUIT 15 YRS OR MORE ID [facility] [place] [facility] Nov 26, 2022 09:30 AM VA-TOBACCO NEVER USED ID [facility] [place] [facility] Nov 26, 2021 09:00 AM VA-TOBACCO NEVER USED [facility] [place] [facility] May 01, 2020 11:00 AM VA-TOBACCO NEVER USED [facility] [place] [facility] Apr 19, 2019 02:33 PM VA-TOBACCO FORMER USER [facility] [place] [facility] Apr 19, 2019 02:33 PM VA-TOBACCO QUIT 15 YRS OR MORE [facility] [facility] Encounter Notes: All associated encounter [...] for hearing aid follow up regarding his Tony RIChayden. He reports feedback and this is heard today. He reports he got a new iPhone and does not know how to pair it to his hearing aids. He notes that he cannot use the TV device since getting the new phone. Otoscopy is WNLs [place]. The hearing aids were connected to [employer] and the feedback test was performed. Recommended automatic adjustments were applied. This seemed to resolve the feedback and reported good sound quality. Assisted with pairing to his phone. It was explained that now he should be able to access the TV stream with the mariano. If problems with connectivity persist, he was advised to call 's tech support at [facility]. He reports in the past, he tried this and he was advised he had to pay for that service- he was instructed to call the clinic if he is told that again. [place] will contact the clinic as needed. /estefany/ Roberta SHULTZ, [facility]-A STAFF DIRECTOR GLOBAL DEVELOPMENT Signed: 12/10/2023 08:24 DEVANTE DEL ROSARIO [facility]
--- OUTSIDE RECORDS SUMMARY | 2024-10-14 11:00 | XMS_ITS | Encounter Summary ---
Author Name [facility] [place] Address [address] [place] [address] Care Team Providers Care Senior Web Developer Name Role Phone MISSY MALLORY Primary Care [...] Martínez's Name Patient's Relationship to Policy Martínez [facility] ADV[facility] (WNR) Jun 01, 2023 [id number] TOMEKA OLIVIER PATIENT AETNA [facility] (WNR) MEDICARE ADVANTAGE [place] Jun 01, 2021 [id number] [phone] TOMEKA OLIVIER PATIENT FOR LIFE TFL* Jun 01, 2017 [id number] TOMEKA OLIVIER PATIENT Selected Encounter This section includes the information on record at [place] for the Encounter. Date/Time Encounter Type Encounter Description Reason Provider Source Nov 27, 2023 09:00 AM OFFICE O/P EST MOD 30 MIN PRIMARY CARE/MEDICINE ICD-10-CM I10 Essential (primary) hypertension MISSY MALLORY [facility] Encounter Template Text not used by [place] Assessments - Encounter Diagnoses This section includes the primary and secondary diagnoses documented for the Encounter. Date/Time Primary/Secondary Diagnosis Diagnosis Name Provider Source Nov 27, 2023 09:42 AM PRIMARY Essential (primary) hypertension MISSY MALLORY [place] [facility] [place] [facility] Nov 27, 2023 09:42 AM SECONDARY Benign prostatic hyperplasia without lower urinry tract symp MOHAMUDMISSY GRAMAJO [place] [facility] [place] [facility] Nov 27, 2023 09:42 AM SECONDARY Gross hematuria MISSY MALLORY [place] [facility] [place] [facility] Nov 27, 2023 09:42 AM SECONDARY Hyperlipidemia, unspecified MOHAMUDMISSY GRAMAJO [place] [facility] [place] [facility] Nov 27, 2023 09:42 AM SECONDARY Type 2 diabetes mellitus without complications MISSY MALLORY [place] [facility] [place] [facility] Plan of Treatment: Future Appointments (+ 6 months) and Future Tests (+/- 45 days) The Plan of Treatment section includes future care activities for the patient from all [place] [facility]. This section includes future appointments and future orders which are active, pending or scheduled. Future Appointments This section includes appointments that were scheduled to occur 6 months from the date of the Encounter, up to a maximum of 20 appointments. The data comes from all [place] treatment facilities. Appointment Date/Time Appointment Type Appointme nt Facility Name Dec 10, 2023 08:00 AM AMBULATORY - [place]ICIN [place] [facility] [place] [facility] Vital Signs: All taken on the encounter date This section contains inpatient and outpatient Vital Signs collected on the date of the Encounter. Date/Time Temperature Pulse Blood Pressure Respiratory Rate SP02 Pain Height Weight Body Mass Index Source Nov 27, 2023 09:00 AM 60 139/73 [place] [facility] [place] [facility] Nov 27, 2023 08:57 AM 220 32 [place] [facility] [place] [facility] Nov 27, 2023 08:49 AM 98.2 61 146/74 16 95 0 [place] [facility] [place] [facility] Social History: Smoking Status (Most current) and Tobacco Use (All prior to encounter date) This section includes the most current, and the historical, smoking and tobacco- related health factors from the [place] facility where the Encounter took place. Current Smoking Status This section includes the most current smoking, or tobacco-related health factor, from the [place] facility where the Encounter took place. Date/Time Current Smoking Status Comment Smith ity Nov 27, 2023 09:00 AM VA-TOBACCO FORMER USER [place] [facility] [place] [facility] Tobacco Use History This section includes a history of the smoking, or tobacco-related health factors, that were collected on or before the date of the Encounter. The data comes from the [place] facility where the Encounter took place. Date/Time Smoking Status/Tobacco Use Comment F acility Nov 27, 2023 09:00 AM VA-TOBACCO QUIT 15 YRS OR MORE [place] [facility] [place] [facility] Nov 26, 2022 09:30 AM VA-TOBACCO NEVER USED [place] [facility] [place] [facility] Nov 26, 2021 09:00 AM VA-TOBACCO NEVER USED [place] [facility] [place] [facility] May 01, 2020 11:00 AM VA-TOBACCO NEVER USED [place] [facility] [place] [facility] Apr 19, 2019 02:33 PM VA-TOBACCO FORMER USER [place] [facility] [place] [facility] Apr 19, 2019 02:33 PM VA-TOBACCO QUIT 15 YRS OR MORE [place] [facility] [place] [facility] Encounter Notes: All associated encounter notes [...] his Primary care through Dr Mendoza in [place] Gross hematuria [place] and now on a medication he is [...] essential hypertension 2. Diabetes Mellitus Type 2 ([facility] [id number]) 3. Benign Prostatic Hypertrophy Without Outflow Obstruction ([facility] [id number]) 4. Hyperlipidemia ([facility] [id number]) Allergies: Patient has answered NKA The following [...] HI PHYSI ABBE EXAM GENERAL: well appearing [place] in NAD, speeking in clear sentences. SKIN: [...] longer following with off-site PCP, please call front end wheel loader operator to schedule sooner appt with [facility]. Return to clinic to see me in 12 months, RTC sooner if needed. Clinical Reminders Toxic Exposure Screening: The [place]/caregiver was asked if they believe the [place] experienced any toxic exposure(s), such as Airborne Hazards and Open Burn Pit, [place] War related exposures, Agent [place], Radiation, contaminated water at [place] or other such exposures, while serving in the Armed [employer]. [place] has no concerns about toxic exposure(s) while serving in the Armed [employer]. The [place]/caregiver was informed that we will continue to ask this screening question every 5 years. They can contact their provider/healthcare team if they have concerns about exposures and would like to be screened sooner. Printed information was offered and provided if desired. Hemoglobin A1C: [place] had HBA1C result from another health care site (results required). Date: October 09, 2023 Location: Outside Healthcare Provider Results: <6 /estefany/ SHELLY FERNANDEZ Nurse Practitioner Signed: 11/27/2023 09:41 11/28/2023 ADDENDUM STATUS: COMPLETED Vet called with the med that urology is prescribing its Finasteride 1mg daily I have updated his Med chart /estefany/ SHELLY FERNANDEZ Nurse Practitioner Signed: 11/28/2023 08:59 MISSY MALLORY [place] [facility] [place] [facility] Nov 27, 2023 08:40 AM PREVENTIVE [...] Not at all Suicide Screen: C-SSRS Screening [place] Suicide Severity Rating Scale (C-SSRS) screener 1. [...] Not worried about housing near future The [place] reports the following: Within the past 12 [...] due to responses to other questions. 5. [place] numb or detached from people, activities, or your surroundings? Response not required due to responses to other questions. 6. [place] guilty or unable to stop blaming yourself [...] NURSE Signed: 11/27/2023 09:06 HUANG CRUZ [facility]
--- OUTSIDE RECORDS SUMMARY | 2024-10-14 11:00 | XMS_ITS ---
Author Organization [facility] Address [address] [facility] [address] [place] [id number] Care Team Providers Care Head Stock Transfer Clerk Name Role Phone Vini Mendoza MD Primary Care Provider Jennifer Justin Jr, Cedrick Blank [phone] REASON FOR VISIT screening Encounters Encounter Location Date Provider Diagnosis [facility] [address] [place] [phone] 01/26/2024 Cedrick Justin Jr Colon cancer screening [...] Name:Cedrick licona Jr, 01/25/2025 09:20:00 AM, [address] [facility], [address], [place], [address], Progress Notes * TOMEKA OLIVIERDOB:[birth year] (84 yo M)Acc No.[id number]:01/26/2024 COLON WITH MAC Patient:?REJIAMBAR TOMEKA Provider:?Cedrick Justin MD :1940???Age:83 Y???Sex:Male Isaiah e:01/26/2024 Address:[address] [place] [address] [place], [place] Pcp:Vini Mendoza MD Subjective: * Chief Complaints: * ???1. Screening. * Medical History:? Objective: * Vitals:? Assessment: * Assessment: 1.?Colon cancer screening - Z12.11 (Primary)???2.?Family history of colon cancer - Z80.0???3.?Colon polyps - K63.5??? Plan: * Treatment: * Procedure Codes:?46631 LESIO N REMOVAL COLONOSCOPY, 67348 LESION REMOVE COLONOSCOPY, Modifiers: 59 , 23868 COLONOSCOPY AND BIOPSY, Modifiers: 59 , 0529F INTRVL 3+YRS PTS CLNSCP DOCD * * The named appointment provid er may or may not be the originator of this progress note, and it is not deemed complete until electronically signed by the appointment provider. Sign off status: Pending * Provider:?Cedrick Justin MD Date:?0 01/26/2024 Generated for Meg brenner/Min/eTmamadousmitting on:?10/14/2024 11:00 AM EDT
--- OUTSIDE RECORDS SUMMARY | 2024-10-14 11:00 | XMS_ITS ---
Author Organization [facility] Address [address] [place] [address] Care Team Providers Care Record Clerk Salesperson Name Role Phone Vini Mendoza MD Primary Care Provider Cedrick Becerra Jr Unavailable [phone] Allergies Allergen (clinical drug ingredient) Drug/Non Drug [...] Problem Status W/U Status Risk Notes Problem [id number] FH: colon cancer (Z80.0) Active confirmed Vital Signs Temperature 97.7 degrees Fahrenheit 12/09/19 24 Blood pressure systolic 000 mm Hg 12/09/19 24 Blood pressure diastolic 00 mm Hg 024 Height 69.5 in 12/09/2023 Weight 221 lb 6 oz lbs 12/09/2023 BMI 32.22 kg/m2 12/09/2023 Encounters Encounter Location Date Provider Diagnosis [facility] [address] [place] [address] 12/09/2023 Cedrick Justin Jr Colon cancer screening [...] 09:20:00 AM, [address], [address], [place], [address], Progress Notes * MAYITO OLIVIER:[birth year] (83 yo M)Acc No.[id number]:12/09/2023 Progress Notes Patient:?TOMEKA OLIVIER Provider:?Cedrick Justin MD :1940???Age:83 Y???Sex:Male Isaiah e:12/09/2023 Address:[address] [place] [address], [place] [phone] Pcp:Vini Mendoza MD Subjective: * Chief Complaints: [...] dece ased 79 yrs, SEPSIS.?Mother: 75 yrs, [place], diagnosed with Heart disease.? This is reviewed [...] MD Date:?0 12/09/2023 Generated for Meg brenner/Min/eTransmitting on:?10/14/2024 11:00 AM EDT History and Physical Notes * HPI (History [...]
--- OUTSIDE RECORDS SUMMARY | 2024-10-14 11:00 | XMS_ITS ---
Author Organization Vini Mendoza MD Address [address] [place] [phone] Care Team Providers Care Operator Automated Process Name Role Phone Vini Mendoza Primary Care Provider Results Component Value Reference Range Notes Complete Blood Count Auto Di ff (Not yet reviewed by provider) Interpretation: Performing Lab:, [address] [place] [phone] Notes/Report: White Blood Count 7.0 4.8-10.8 X10*3/uL Red Blood Count 3.73 4.60-5.80 X10*6/uL Hemoglobin 9.2 14.0-18.0 g/dl Hematocrit 30.6 42.0-52.0 % Mean Corpuscular Volume 82.0 80.0-98.0 fL Mean Corpuscular Hemoglobin 24.7 27.0-33.0 pg Mean Corpuscular HGB Conc 30.1 31.0-36.0 g/dl Red Cell Distribution Width 15.5 11.0-16.0 % Platelet Count 220 160-400 X10*3/uL Mean Platelet Volume 10.7 9.4-12.4 fL Neutrophils Percent Auto 62.6 45-73 % Imm Gran Pct Auto 0.7 0.0-0.4 % Lymphocytes Percent Auto 22.9 20-40 % Monocytes Percent Auto 11.7 2-11 % Eosinophils Percent Auto 1.7 0-4 % Basophils Percent Auto 0.4 0-2 % NRBC Pct Auto 0.3 0.0-0.2 /100WBC Neutrophils Absolute Auto 4.4 2.0-8.3 x10*3/u L Imm Gran Abs Auto 0.05 0.00-0.03 X10*3/uL Lymphocytes Absolute Auto 1.6 1.2-4.9 X10*3/u L Monocytes Absolute Auto 0.8 0.1-1.2 X10*3/uL Eosinophils Absolute Auto 0.1 0.0-0.4 X10*3/u L Basophils Absolute Auto 0.0 0.0-0.2 X10*3/uL NRBC Abs Auto 0.020 0.0-0.012 X10*3/uL REASON FOR VISIT CBC TIBC Encounters Encounter Location Date Provider Diagnosis Vini Mendoza MD [address] [place] [address] [address] [place], [place] [phone] 10/14/2024 Vini Mendoza Iron deficiency E61.1 Assessments Encounter Date Diagnosis (ICD Code) Assessment Notes Treatment Notes Treatment Clinical Notes Section Notes 10/14/2024 Iron deficiency (ICD-10 - E61.1) Plan Of Treatment Pending Test Test Name Order Date Complete Blood Count Auto Diff IRON PROFILE 10/14/2024 Next Appt Details Provider Name:Vini herzog, 10/21/2024 10:00:00 AM, [address] [place] [address], [address], [place], [place], [phone], Provider Name:Vini herzog, 12/29/2024 07:30:00 AM, [address], [address], [place], [phone], Provider Name:Vini Moscoso chilokristan, 06/29/2025 07:45:00 AM, [address], [address], [place], [phone], Provider Name:Vini Moscoso chilor, 07/06/2025 09:30:00 AM, [address], [address], [place], [phone], Progress Notes * Deacon ROMODOB:[birth year] (84 yo M)Acc No.[id number]:10/14/2024 Progress Note Patient:?Deacon ROMO Provider:?Vini Mendoza MD :1940???Age:84 Y???Sex:Male Isaiah e:10/14/2024 Address:[address] [place] [address] [id number] Subjective: * Chief Complaints: * ???1. CBC TIBC. * Medical History:? Objective: * Vitals:? Assessment: * Assessment: 1.?Iron deficiency - E61.1?? ? Plan: * Treatment: * Procedure Codes:?01302 VENIP UNCT, ROUTINE* * * The named appointment provid er may or may not be the originator of this progress note, and it is not deemed complete until electronically signed by the appointment provider. Sign off status: Pending * Provider:?Vini Mendoza MD Date:?0 10/14/2024 Generated for Meg brenner/Min/eTransmitting on:?10/14/2024 11:00 AM EDT
--- OUTSIDE RECORDS SUMMARY | 2024-10-14 11:01 | XMS_ITS ---
Author Organization [facility] Address [address] [place] [address] Care Team Providers Care Colorman Name Role Phone Vini Mendoza MD Primary Care Provider Jennifer Justin Jr, Cedrick Blank [phone] REASON FOR VISIT pathology Encounters Encounter Location Date Provider Diagnosis [facility] [address] [place] [address] 01/29/2024 Cedrick Justin Jr Plan Of Treatment Next Appt Details Provider Name:Cedrick licona Jr, 01/25/2025 09:20:00 AM, [address], [address], [place], [address], Progress Notes * CHARLINETOMEKADOB:[birth year] (83 yo M)Acc No.[id number]:01/29/2024 Patient:?REJITOMEKA VILLALTA :1940???Age:83 Y???Sex:Male Address:[address] [place] [address] [place] [address] * true * Date:? Generated for Printi ng/Fawestong/eTransmitting on:?10/14/2024 11:00 AM EDT
--- OUTSIDE RECORDS SUMMARY | 2024-10-14 11:01 | XMS_ITS | Continuity of Care Document ---
Author Name [facility] Organization [facility] Care Team Providers Care Wheel Grinder Name Role Phone [facility] Unavailable Unavailable Problems Combined list of problems from [facility] and [facility] facilities. It does not include entries that were removed or entered in error. Problem Status Onset Date Problem Type Date of Resolution Comments Source Benign essential hypertension Active Condition [facility] [place] [facility] Benign Prostatic Hypertrophy Without Outflow Obstruction ([facility] [id number]) Active Condition [facility] [place] [facility] Diabetes Mellitus Type 2 ([facility] [id number]) Active Condition [facility] [place] [facility] Hyperlipidemia ([facility] [id number]) Active Condition [facility] [place] [facility] Diagnosis: ICD-10-CM Z46.1 Encounter for fitting and adjustment of hearing aid Active Diagnosis [facility] [place] [facility] Diagnosis: ICD-10-CM I10 Essential (primary) hypertension Active Diagnosis [facility] [place] [facility] Medications Combined list of outpatient medications from [facility] and [facility] facilities.Medications provided include 1) outpatient medications from the last 15 months, and 2) patient-reported medications. Medication Details Route Status Patient Instructions Prescription Expires Prescription Number Last Dispense Date Ordering Provider Order Date Order Qty Source ASPIRIN 81MG TAB,CHEWABL E CHEW ONE TABLET BY MOUTH ONCE DAILY ORAL ACTIVE RA NAIF ROLAND 2018 [facility] ATORVASTATI N CA 20MG TAB TAKE ONE-HALF TABLET BY MOUTH EVERY EVENING ORAL ACTIVE RA NAIF [facility]OLAND [facility] [place] FINASTERIDE 1MG TAB TAKE ONE TABLET BY MOUTH ONCE DAILY ORAL ACTIVE MISSY MALLORY 2023 [facility] [place] HYDROCHLORO THIAZIDE 12.5MG/IRBE SARTAN 150MG TAB TAKE ONE TABLET BY MOUTH ONCE DAILY ORAL ACTIVE RA NAIF [facility]OLAND [facility] HYDROCHLORO THIAZIDE 12.5MG/IRBE SARTAN 150MG TAB TAKE ONE TABLET BY MOUTH ONCE DAILY ORAL ACTIVE MOHAMUD, MISSY VIJAYA 2023 [facility] JANUVIA (SITAGLIPTI N PHOSPHATE), 100MG, TABLET, ORAL, [employer] 30 ea. BOTTLE Active [id number] 4 2023 90 Pharmac y Data Transac tion Service Facilit y LORATADINE 10MG TAB TAKE ONE TABLET BY MOUTH ONCE DAILY ORAL ACTIVE MOHAMUD, MISSY VIJAYA 2023 [facility] METFORMIN HCL 1000MG TAB TAKE ONE TABLET BY MOUTH TWICE DAILY ORAL ACTIVE RA NAIF ROLAND 2018 [facility] METOPROLOL SUCCINATE 50MG TAB,SA TAKE ONE TABLET BY MOUTH ONCE DAILY ORAL ACTIVE RA NAIF ROLAND 2018 [facility] MONTELUKAST NA 10MG TAB TAKE ONE TABLET BY MOUTH ONCE DAILY ORAL ACTIVE RA NAIF ROLAND 2018 [facility] Immunizations Combined list of available immunizations from the Department of Defense and Veterans Affairs facilities. Immunization Series Date Given Administered By Site Reaction Lot Number CVX Code Drug Mushroom Cultivator Status Comments Source INFLUENZA, UNSPECIFIED FORMULATION 2022 88 complet ed HISTORICA L INFORMATI ON - FROM PATIENT'S RECALL, [facility] INFLUENZA, UNSPECIFIED FORMULATION 2021 88 complet ed HISTORICA L INFORMATI ON - SOURCE UNSPECIFI ED, [facility] influenza, high-dose, quadrivalent 2020 [place], () Not Given influenza , high-dose , quadrival ent [facility] COVID-19 (MODERNA), MRNA, LNP-S, PF, 100 MCG/0.5 ML DOSE 2 2020 207 complet ed MOD; [id number]; 1 [facility] [place] COVID-19 (MODERNA), MRNA, LNP-S, PF, 100 MCG/0.5 ML DOSE 1 2020 207 complet ed MOD; [id number]; 1 [facility] [...] Source [facility] HEARING AID REPAIR/MOD IFYING 75673-3.63 [id number] Diagnos is: ICD-10- CM Z46.1 Encount er for fitting and adjustm ent of hearing aid JAMEY ELIZABETH 04/27 [facility] [place] [place] HEARING AID FITTING/CH ECKING [id number] Diagnos is: ICD-10- CM Z46.1 Encount er for fitting and adjustm ent of hearing aid STUPJ Cardenas 06/03 [facility] Outpatient Encounter [id number] 07/02 [facility] [place] Outpatient Encounter [id number] 10/08 [facility] [place] OFFICE O/P EST MOD 30 MIN [id number] Diagnos is: ICD-10- CM I10 Essenti al (primar y) hyperte nsion MOHAMUD,L EDGARD VIJAYA 11/26 [facility] [place] Outpatient Encounter [id number] 11/26 [facility] [place] HEARING AID FITTING/CH ECKING [id number] Diagnos is: ICD-10- CM Z46.1 Encount er for fitting and adjustm ent of hearing aid Gris DEL ROSARIO 12/09 [facility] [place] [facility] Social History Combined list of available smoking, tobacco, and other social history from Department of Defense and Veterans Affairs facilities. Social History Type Response Date Comment Sourc e Tobacco smoking status NDIS VA-TOBACCO FORMER USER 11/27/2023 [facility] History of tobacco use VA-TOBACCO QUIT 15 YRS OR MORE 11/27/2023 [facility] History of tobacco use VA-TOBACCO NEVER USED 11/26/2022 [facility] History of tobacco use [place]-TOBACCO NEVER USED 11/26/2021 [facility] History of tobacco use SD-TOBACCO NEVER USED 05[facility]01[facility]2020 [facility] History of tobacco use SD-TOBACCO QUIT 15 YRS OR MORE 04/19/2019 [facility] This section is an empty social history section. [facility] Plan of Care List of future care activities from Department of Veterans Affairs facilities. Additional future care activities may be listed in the Assessment and Plan section. Date/Time Care Activity Care Activity Detail Facili ty 11/30/2024 AMBULATORY - MEDICINE AMBULATORY - MEDICI [facility]
--- OUTSIDE RECORDS SUMMARY | 2024-10-14 11:01 | XMS_ITS | Patient Health Record ---
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 Name Role Phone Vini Mendoza Primary Care Provider Allergies No Known Allergies Results Component Value Reference Range Notes Hemoglobin A1c Reviewed date:10/23/2023 01:18:16 PM Interpretation: Performing Lab: Notes/Report: Hemoglobin A1c 9.7 Hemoglobin A1c Reviewed date:02/22/2024 09:50:23 AM Interpretation: Performing Lab: Notes/Report: Hemoglobin A1c 8.0 Complete Blood Count Auto Di ff Reviewed date:07/04/2024 07:18:28 AM Interpretation:see back 07-01-24 Performing Lab:[facility], [address] [place] [phone] Notes/Report: White Blood Count 7.9 4.8-10.8 X10*3/uL [...] 0.0-0.2 /100WBC Neutrophils Absolute Auto 5.1 2.0-8.3 x10*3/uL Imm Gran Abs Auto 0.03 0.00-0.03 X10*3/uL Lymphocytes Absolute Auto 2.0 1.2-4.9 X10*3/uL Monocytes Absolute Auto 0.7 0.1-1.2 X10*3/uL Eosinophils Absolute Auto 0.1 0.0-0.4 X10*3/uL Basophils Absolute Auto 0.0 0.0-0.2 X10*3/uL NRBC Abs Auto 0.000 0.0-0.012 X10*3/uL Comprehensive [place]. Panel Fa st Reviewed date:06/26/2024 04:58:35 PM Interpretation: Performing Lab:[facility], [address] [place] [phone] Notes/Report: Sodium 141 135-145 mmol/L Potassium 4.8 3.3-5.1 mmol/L Chloride 107 96-108 mmol/L Carbon Dioxide 26 22-29 mmol/L Anion Gap 13 12-20 Blood Urea Nitrogen 22 9-16 mg/dL Creatinine 1.08 0.5-1.4 mg/dL Estimated Glomerular Filt Rate > 60 Chronic Kidney Disease: Estimated GFR < 60 mL/min/1.73m2 Severe Kidney Disease: Estimated GFR < 15 mL/min/1.73m2 Glucose Fasting 123 60-99 mg/dL A fasting glucose from 100-125 mg/dl is considered impaired (pre-diabetes). Calcium 9.3 8.4-10.2 mg/dL Bilirubin Total 1.0 0.0-1.0 mg/dL Aspartate Amino Transferase 62 5-37 U/L Alanine Aminotransferase 57 0-40 U/L Total Protein 7.0 6.5-8.0 g/dL Albumin Level 3.7 3.5-5.0 g/dL Alkaline Phosphatase 68 39-117 U/L Lipid Panel Reviewed date:06/25/2024 12:29:18 PM Interpretation: Performing Lab:[facility], [address] [place] [phone] Notes/Report: Triglycerides 138 <150 mg/dL Desirable Triglyceride: less than 150 mg/dL Borderline High Triglyceride 150-199 mg/dL High Triglyceride: 200-499 mg/dL Very High Triglyceride: greater than or equal to 5OO mg/dL Cholesterol 91 <200 mg/dL Desirable Cholesterol: less than 200 mg/dL Borderline High Cholesterol: 200-239 mg/dL High Cholesterol: greater than 239 mg/dL LDL Cholesterol Calculated 34 <100 mg/dL Desirable LDL: less than 100 mg/dL Near Optimal/Above Optimal LDL: 110-129 mg/dL Borderline High LDL: 130-159 mg/dL High LDL: 160-189 mg/dL Very High LDL: greater than or equal to 190 mg/dL HDL Cholesterol 30 >40 mg/dL Desirable HDL: greater than 40 mg/dL Note: This HDL assay may give artificially low results in patients with liver disease. PSA,Total (Free>4and<10) Reviewed date:06/25/2024 12:29:08 PM Interpretation: Performing Lab:[facility], [address] [place] [phone] Notes/Report: PSA,Total (Free>4and<10) 0.67 0.00-4.00 ng/mL A [...] Ivory Alinity i Chemiluminescent Microparticle Immunoassay (CMIA) Microalbumin, Random Reviewed date:06/25/2024 12:28:59 PM Interpretation: Performing Lab:[address] [phone] Notes/Report: Creatinine Urine 225.05 Microalbumin Urine 44.0 Microalbum/Creatinine Ratio Ur 19.5 <30 ug/mg cr Albumin/Creatinine Ratio Reference Ranges: Normal: < 30 ug/mg creatinine Microalbuminuria: 30 - 300 ug/mg creatinine Clinical Albuminuria: > 300 ug/mg creatinine Hemoglobin A1c Reviewed date:06/24/2024 01:15:12 PM Interpretation: Performing Lab:[address] [phone] Notes/Report: Hemoglobin A1c % 6.9 <6.0 % [...] average glucose, using the formula of the F6B-Wpzvvyr Average Glucose study (ADAG), Diabetes Care, Vol.31,#8, Dec. 2007 UA ClnCatch+Micro w/rflx Cul t Reviewed date:06/26/2024 05:02:46 PM Interpretation: Performing Lab:[address] [phone] Notes/Report: Urine, Clean Catch Color Urine Yellow Appearance Urine Clear PH 5.5 5.0-9.0 Glucose Urine UA Negative Negative mg/dL Urine Blood Negative Negative Specific [place] - Urine >= 1.030 1.005-1.025 Urine Protein Trace Neg-Trace mg/dL Urine Ketones Trace Negative mg/dL Nitrite Urine Negative Negative Leukocyte Esterase Urine Negative Negative RBC Urine 0-2 0-2 /HPF WBC Urine 0-5 0-5 /HPF Squamous Epithelial Cell Urine 0-2 0-2 /HPF Bacteria Urine None Seen None Seen Hyaline Casts Urine 0-2 0-2 /LPF Complete Blood Count Auto Di ff (Not yet reviewed by provider) Interpretation: Performing Lab:[facility], [address] [place] [phone] Notes/Report: White Blood Count 7.0 4.8-10.8 X10*3/uL [...] 0.0-0.2 /100WBC Neutrophils Absolute Auto 4.4 2.0-8.3 x10*3/uL Imm Gran Abs Auto 0.05 0.00-0.03 X10*3/uL Lymphocytes Absolute Auto 1.6 1.2-4.9 X10*3/uL Monocytes Absolute Auto 0.8 0.1-1.2 X10*3/uL Eosinophils Absolute Auto 0.1 0.0-0.4 X10*3/uL Basophils Absolute Auto 0.0 0.0-0.2 X10*3/uL NRBC Abs Auto 0.020 0.0-0.012 X10*3/uL Glucose, finger stick Reviewed date:10/23/2023 01:11:36 PM Interpretation: Performing Lab: Notes/Report: Value 158 Glucose, finger stick Reviewed date:02/22/2024 09:47:31 AM Interpretation: Performing Lab: Notes/Report: Value 159 Glucose, finger stick Reviewed date:04/15/2024 09:07:26 AM Interpretation: Performing Lab: Notes/Report: Value 125 Complete Blood Count Auto Di ff Reviewed date:07/01/2024 04:25:27 PM Interpretation: Performing Lab:[facility], [address] [place] [phone] Notes/Report: White Blood Count 10.5 4.8-10.8 X10*3/uL Red Blood Count 4.15 4.60-5.80 X10*6/uL Hemoglobin 11.7 14.0-18.0 g/dl Hematocrit 36.1 42.0-52.0 % Mean Corpuscular Volume 87.0 80.0-98.0 fL Mean Corpuscular Hemoglobin 28.2 27.0-33.0 pg Mean Corpuscular HGB Conc 32.4 31.0-36.0 g/dl Red Cell Distribution Width 16.3 11.0-16.0 % Platelet Count 239 160-400 X10*3/uL Mean Platelet Volume 11.6 9.4-12.4 fL Neutrophils Percent Auto 69.8 45-73 % Imm Gran Pct Auto 0.3 0.0-0.4 % Lymphocytes Percent Auto 20.7 20-40 % Monocytes Percent Auto 7.7 2-11 % Eosinophils Percent Auto 1.1 0-4 % Basophils Percent Auto 0.4 0-2 % NRBC Pct Auto 0.0 0.0-0.2 /100WBC Neutrophils Absolute Auto 7.3 2.0-8.3 x10*3/uL Imm Gran Abs Auto 0.03 0.00-0.03 X10*3/uL Lymphocytes Absolute Auto 2.2 1.2-4.9 X10*3/uL Monocytes Absolute Auto 0.8 0.1-1.2 X10*3/uL Eosinophils Absolute Auto 0.1 0.0-0.4 X10*3/uL Basophils Absolute Auto 0.0 0.0-0.2 X10*3/uL NRBC Abs Auto 0.000 0.0-0.012 X10*3/uL IRON PROFILE Reviewed date:07/03/2024 03:27:36 PM Interpretation: Performing Lab:[facility], [address] [place] [phone] Notes/Report: Iron 35 45-160 mcg/dL Total Iron Binding Capacity 346 228-428 mcg/dL Percent Iron Saturation 10 15-50 % Unsaturated Iron Binding 311 Occult Blood, Stool, Guaiac Reviewed date:07/20/2024 08:37:52 AM Interpretation:Negative Performing Lab: Notes/Report: Negative Occult Blood, Stool, Guaiac NegX3 Glucose, Whole Blood Reviewed date:01/26/2024 11:54:01 AM Interpretation: Performing Lab:[facility], [address] [place] [phone] Notes/Report: Glucose, Whole Blood 133 60-115 mg/dL METER # : [id number] Pathology Reviewed date:01/28/2024 03:51:31 PM Interpretation: Performing Lab:[facility], [address] [place] [phone] Notes/Report: Name: Deacon Romo Age/Sex: 83/M : 1940 Unit#: [id number] Attend Dr: Cedrick Butt MD Re01/26/24 Status: [facility] Location: [facility] Disch: SPEC : [id number] RECD: 01/26/24-1158 STATUS: STANISLAW CARDOZO NUM: [id number] DEISY: 01/26/24-1054 [facility] DR: Cedrick Butt MD ENTERED: 01/26/24-1213 SP TYPE: Surgical OTHR DR: Vini Mendoza MD ORDERED: HE Stain/15, Gross Micro L4/5 Diagnosis A. Cecum, #1, polypectomy: Fragments of sessile serrated lesion/polyp; negative for cytologic dysplasia. B. Colon, right, polypectomies: Fragments of tubular adenomata; negative for high-grade dysplasia or carcinoma. C. Colon, hepatic flexure, polypectomy: Fragments of colonic mucosa with thermal artifact. D. Colon, transverse, polypectomies: Tubular adenomata; negative for high-grade dysplasia or carcinoma. E. Colon, 25 cm, polypectomy: Hyperplastic mucosal polyp. Clinical History Pre-Op Dx: Screening Post-Op Dx: Colon polyps Microscopic Description A-E. Microscopic sections reviewed. Material Received A. Polyp cecum #1 B. Polyps right colon C. Hepatic flexure polyp D. Transverse colon polyps E. Polyp at 25 Gross Description Received in 5 parts. Part A: Received in formalin labeled ?cecum polyp? are 3 pieces of young tissue all measuring 0.2 cm, all submitted in cassette labeled A. Part B: Received in formalin labeled ?right colon polyps? are multiple pieces of young-pink tissue measuring from 0.1-0.7 cm, all submitted in cassette labeled B. Part C: Received in formalin labeled ?hepatic flexure polyp? is 1 piece of young tissue CONTINUED ON NEXT PAGE Name: Deacon Romo Age/Sex: 83/M : 1940 Unit#: [id number] Attend Dr: Cedrick Butt MD Re01/26/24 Status: [facility] Location: [facility] Disch: SPEC : [id number] RECD: 01/26/24-1157 STATUS: STANISLAW CARDOZO NUM: [id number] DEISY: 01/26/24-[address]: Cedrick Butt MD ENTERED: 01/26/24-1213 SP TYPE: Surgical OTHR DR: Vini Mendoza MD ORDERED: HE /15, Gross Micro L4/5 Gross Description (Continued) measuring 0.2 cm, all submitted in cassette labeled C. Part D: Received in formalin labeled ?transverse colon polyps? are 6 pieces of young-pink tissue measuring from 0.2-0.6 cm, all submitted in cassette labeled D. Part E: Received in formalin labeled ?polyp at 25 cm is 1 piece of young tissue measuring 0.2 cm, all submitted in cassette labeled E. FM Copies To: Vini Mendoza MD [facility] [address] [place] [address] Drive [address] [place], [place] [phone] Cedrick Butt MD [facility] [address] [place] [address] [address] [place] [address] Signed (signature on file) Deacon Kasper MD 01/28/24 1537 END OF REPORT Vitamin B12 Reviewed date:07/03/2024 03:27:05 PM Interpretation: Performing Lab:[facility], [address] [place] [phone] Notes/Report: Vitamin B12 245 200-900 pg/mL NORMAL 200-900 PG/ML INDETERMINATE 160-199 PG/ML DEFICIENT < 160 PG/ML Folate Reviewed date:07/03/2024 03:27:13 PM Interpretation: Performing Lab:[facility], [address] [place] [phone] Notes/Report: Folate 11.5 > or = 4.0 ng/mL Reference Values: > or = 4.0 ng/mL < 4.0 ng/mL suggests folate deficiency Methotrexate, aminopterin and folinic acid (leucovorin) are chemotherapeutic agents whose molecular structures are similar to folate; therefore, the [employer] folate assay cannot be used for patients using these drugs. Reason For Referral No Information Medications Medication SIG (Take, Route, Frequency, Duration) Notes Start Date End Date Status Irbesartan-hydroCHLOROth iazide 150-12.5 MG TAKE ONE TABLET BY MOUTH EVERY DAY for 90 Active Ozempic (1 MG/DOSE) 4 MG/3ML 1 mg Subcutaneous weekly for 30 days 04/15/2024 Active Fluticasone Propionate 50 MCG/ACT SPRAY 1 SPRAY INTO EACH NOSTRIL ONCE A DAY for 180 Active Ozempic (2 MG/DOSE) 8 MG/3ML 2 mg Subcutaneous weekly for 30 days 07/01/2024 Active Finasteride 5 MG 1 tablet Orally Once a day Active OneTouch Ultra Test TEST BLOOD GLUCOSE T WICE A DAY for 50 Active Atorvastatin Calcium 10 MG TAKE ONE TABLET BY MOUTH EVERY DAY Active OneTouch Delica Lancing Dev as directed for 50 03/03/2013 Active Januvia 100 MG TAKE ONE TABLET BY M OUTH EVERY DAY Active Aspir-Low 81 MG 1 tablet Orally Once a day for 30 day(s) Active metFORMIN HCl 1000 MG TAKE ONE TABLET BY MOUTH TWICE A DAY WITH MEALS Active Xyzal Allergy 24HR 5 MG 1 tablet in the evening Orally Once a day for 30 day(s) Active Ozempic (0.25 or 0.5 MG/DOSE) 2 MG/3ML as directed Subcutaneous 0.25 mg weekly fminth then .5mg weekly for 30 days 02/22/2024 Not-Taking Valtrex 1 GM 2 tablet Orally ever y 12 hrs for 1 dose 05/07/2012 Not-Taking Metoprolol Succinate ER 50 MG TAKE ONE TABLET BY MOUTH EVERY DAY for 90 Active Montelukast Sodium 10 MG TAKE ONE TABLET BY MOUTH EVERY EVENING for 90 Active Immunizations Vaccine Route Administration Date Status Comme nts Flu Vaccine IM Intramuscular 03/14/2011 Administered Flu Vaccine Unknown 05/07/2012 Administered Prevnar 13 Unknown 05/07/2012 Administered PPSV23 (Pnemovax) Unknown 03/31/2005 Administered Flu Vaccine IM Intramuscular 02/25/2013 Administered PPSV23 (Pnemovax) IM Intramuscular 02/25/2013 Administered Flu Vaccine Unknown 03/24/2014 Administered [facility] T[facility]P IM Intramuscular 08/14/2014 Administered Flu Vaccine IM Intramuscular 02/11/2015 Administered pt herrera d vaccine at [facility] on [employer] [facility] Fluarix Quadrivalent IM Intramuscular 02/11/2016 Administered Shingles Unknown 03/29/2009 Administered Fluarix Quadrivalent IM Intramuscular 02/23/2017 Administered Shingrix IM Intramuscular 02/08/2018 Administered pt wa given the vaccine at [employer] on [facility]. Flu Vaccine Unknown 02/08/2018 Administered pt was give n the vaccine at [facility] on [facility]. Shingrix IM Intramuscular 05/17/2018 Administered pt was given the vaccine at [facility] in [place]. PPSV23 (Pnemovax) IM Intramuscular 09/10/2018 Administered Fluarix Quadrivalent IM Intramuscular 02/14/2019 Administered Covid Vaccine Unknown 07/02/2020 Administered Moderna SARS-COV-2 Moderna Unknown 04/26/2021 Administered [facility] SARS-COV-2 Moderna Unknown 06/14/2020 Administered SARS-COV-2 Moderna Unknown 07/12/2020 Administered Fluarix Quadrivalent Unknown 02/10/2022 Administered Influenza High Dose IM Intramuscular 02/06/2023 Administered Influenza High Dose IM Intramuscular 02/22/2024 Administered Influenza High Dose Unknown 03/16/2020 [facility] [employer] Social History Tobacco Use: Social History Observation Description Date Details (start date - stop date) Never Smoker NA - NA Tobacco Use/Smoking Question Answer Notes Patient is [...] Never (0 point) Points 1 Interpretation Negative Problems Problem Type SNOMED Code ICD Code Onset Dates Problem Status W/U Status Risk Notes Problem 37817354 Prostatism (N40.0) Active confirmed Problem 271634755 Asthmatic bronch itis (J45.909) Active confirmed Problem 22204814 Essential hypert ension (I10) Active confirmed Problem 95584420 Type 2 diabetes mellitus without complication (E11.9) Active confirmed Problem 122145273 Low HDL (under 4 0) (E78.6) Active confirmed Problem Biochemically recurrent prostate cancer (disorder) (69308307081493 1) Rising PSA level (R97.2) Active confirmed Problem Irregular heart beat (813822465) Irregular heart beat (I49.9) Active confirmed Problem 36300019 Sleep apnea, unspecified type (G47.30) Active confirmed Problem 170764947 Pure hypercholesterolemia (E78.00) Active confirmed Problem 53103732 Seasonal allergi c rhinitis due to pollen (J30.1) Active confirmed Problem 087448070 Adenomatous poly p of colon, unspecified part of colon (D12.6) Active confirmed Problem 650030601 BMI 32.0-32.9,ad ult (Z68.32) Active confirmed Problem 93216321 Bilateral hearin g loss, unspecified hearing loss type (H91.93) Active confirmed Vital Signs Blood pressure diastolic 70 mm Hg 07/01/2024 carol ght is down 10 pounds since 04-15-24 Height 70 in 07/08/2024 weight is 189 a t home no Bp taken at home no temp Blood pressure systolic 132 mm Hg 07/01/2024 clarence ht is down 10 pounds since 04-15-24 Weight 189 lbs 07/08/2024 weight is 189 a t home no Bp taken at home no temp BMI 27.12 kg/m2 07/08/2024 weight is 189 a t home no Bp taken at home no temp Procedures Procedure Date Ordered Date Performed Result Body Sit e Colonoscopy, Screening 01/26/2024 01/26/2024 pending biops y Encounters Encounter Location Date Provider Diagnosis Vini Mendoza MD [address] [place] [id number] 06/24/2024 Vini Mendoza Blood tests for rout ine general physical examination Z00.00 ; Essential hypertension I10 ; Type 2 diabetes mellitus without complication E11.9 ; Pure hypercholesterolemia E78.00 and Prostatism N40.0 Vini Mendoza MD [address] [id number] 10/14/2024 Vini Mendoza Iron deficiency E61. 1 Vini Mendoza MD [address] [place] [address] [id number] 10/23/2023 Vini Mendoza Type 2 diabetes arabella itus without complication E11.9 and Essential hypertension I10 Vini Mendoza MD [address] [place] [id number] 02/22/2024 Vini Mendoza Type 2 diabetes arabella itus without complication E11.9 and Encounter for immunization Z23 Vini Mendoza MD [address] [place] [id number] 04/15/2024 Vini Mendoza Type 2 diabetes arabella itus without complication E11.9 and Newly recognized murmur R01.1 Vini Mendoza MD [address] [place] [id number] 06/10/2024 Vini Mendoza Viral URI J06.9 Vini Mendoza MD [address] [place] [address] [id number] 07/01/2024 Vini Mendoza Mild anemia D64.9 ; Annual physical exam Z00.00 ; Type 2 diabetes mellitus without complication E11.9 ; Pure hypercholesterolemia E78.00 ; Prostatism N40.0 ; Colon cancer screening Z12.11 and Depression screening Z13.31 Vini Mendoza MD [address] [place] [address] [id number] 07/08/2024 Vini Mendoza Iron deficiency E61. 1 Vini Mendoza MD [address] [place] [address] [id number] 05/17/2024 Vini Mendoza MD [address] [place] [id number] 07/03/2024 Vini Mendoza MD [address] [place] [address] [id number] 07/08/2024 Vini Mendoza MD [address] [place] [address] [id number] 07/19/2024 Vini Mendoza Colon cancer screeni ng Z12.11 Vini Mendoza MD [address] [place] [address] [id number] 07/19/2024 Vini Mendoza Assessments Encounter Date Diagnosis (ICD Code) Assessment Notes Treatment Notes Treatment Clinical Notes Section Notes 06/24/2024 [address] tests for [address] ine general physical examination (ICD-10 - Z00.00) 06/24/2024 Essential hypertensi on (ICD-10 - I10) 10/14/2024 Iron deficiency (ICD -10 - E61.1) 10/23/2023 Type 2 diabetes mellitus without complication (ICD-10 - E11.9) needs to get back on diet., will continue current regiment 10/23/2023 Essential hypertensi on (ICD-10 - I10) stable, will continue current regiment 02/22/2024 Type 2 diabetes mellitus without complication (ICD-10 - E11.9) patient verbalized nderstanding of medication and directions for use 02/22/2024 Encounter for immunization (ICD-10 - Z23) flu vaccine administered 04/15/2024 Type 2 diabetes mellitus without complication (ICD-10 - E11.9) patient verbalized understanding of medication and directions for use 04/15/2024 Newly recognized mur mur (ICD-10 - R01.1) pending diagnostic testing, order faxed to [facility] CS dept 06/10/2024 Viral URI (ICD-10 - J06.9) is getting better. no indication for antibiotics. just to use robitussin or mucinex and if not better in a week to call again 07/01/2024 Mild anemia (ICD-10 - D64.9) will continue to monitor z 07/01/2024 Annual physical exam (ICD-10 - Z00.00) labs reviewed and discussed with patient z 07/08/2024 Iron deficiency (ICD -10 - E61.1) discussed recent blood work woth patient, he has had a colonoscopy only 7 months ago but had a lot of polyps. will send him with 3 cards to check for blood and if positive will need to get him back to dr butt. 07/19/2024 Colon cancer screeni ng (ICD-10 - Z12.11) 06/24/2024 Type 2 diabetes mellitus without complication (ICD-10 - E11.9) 07/01/2024 Type 2 diabetes mellitus without complication (ICD-10 - E11.9) doing great on ozempic, will continue current regiment z 06/24/2024 Pure hypercholesterolemia (ICD-10 - E78.00) 07/01/2024 Pure hypercholesterolemia (ICD-10 - E78.00) doing well on meds, willcontiue current regiment z 06/24/2024 Prostatism (ICD-10 - N40.0) 07/01/2024 Prostatism (ICD-10 - N40.0) followed by Urology z 07/01/2024 Colon cancer screeni ng (ICD-10 - Z12.11) guaiac negative z 07/01/2024 Depression screening (ICD-10 - Z13.31) negative screen z Plan Of Treatment Pending Test Test Name Order Date Electrocardiogram (EKG) 02/26/2017 Occult Blood, Stool, Guaiac 03/05/2018 CT ABD & PELVIS WITH IV CONT ONLY 2022 CT ABD & PELVIS WWO CONTRAST 11/21/2022 ECHO 04/15/2024 US abdomen limited 06/05/2022 Complete Blood Count Auto Diff IRON PROFILE 10/14/2024 Future Test Test Name Order Date US abdomen limited 01/04/2023 Next Appt Details Provider Name:Vini herzog, 10/21/2024 10:00:00 AM, [address] [place] [place] [address], [address], [place], [place], [phone], Provider Name:Vini Moscoso ier, 12/29/2024 07:30:00 AM, [address], [address], [place], [phone], Provider Name:Vini Moscoso ier, 06/29/2025 07:45:00 AM, [address], [address], [place], [phone], Provider Name:Vini Moscoso ier, 07/06/2025 09:30:00 AM, [address], [address], [place], [place], [phone], Insurance Providers Payer Name Payer Address Payer Phone Subscriber Number Group Number Insured Name Patient Relationship to Insured Coverage Start Date Coverage End Date [employer]AGE [address] [place], [place] [id number] Deacon Romo Self - patient is the insured [facility] [employer] [address] [place] [address] [phone] [id number] Deacon Romo Self - patient is the insured MEDICARE [address] [place] [address] [id number] Deacon Romo Self - patient is the insured Medical (General) History Medical History History ICD Code colonoscopy 07/2014 repeat in 3 years; colonoscopy 01/02/16 w/ Dr. Butt; colonoscopy done 02/11/[address] Butt, no futher testing needed.01/26/24 Colonoscopy, pending biopsy
--- OUTSIDE RECORDS SUMMARY | 2024-10-14 11:01 | XMS_ITS ---
Author Organization Vini Mendoza MD Address [address] [place] [phone] Care Team Providers Care Compliance Officer Name Role Phone Vini Mendoza Primary Care Provider Results Component Value Reference Range Notes Occult Blood, Stool, Guaiac Reviewed date:07/20/2024 08:37:52 AM Interpretation:Negative Performing Lab: Notes/Report: Negative Occult Blood, Stool, Guaiac NegX3 REASON FOR VISIT 3 stool cards returned Encounters Encounter Location Date Provider Diagnosis Vini Mendoza MD [address] [place] [phone] 07/19/2024 Vini Mendoza Colon cancer screening Z12.11 Assessments Encounter Date Diagnosis (ICD Code) Assessment Notes Treatment Notes Treatment Clinical Notes Section Notes 07/19/2024 Colon cancer screening (ICD-10 - Z12.11) Plan Of Treatment Next Appt Details Provider Name:Vini Moscoso mino, 10/21/2024 10:00:00 AM, [address], Suite [facility], [place], [phone], Provider Name:Vini Moscoso mino, 12/29/2024 07:30:00 AM, [address] [facility], Suite [facility], [place], [phone], Provider Name:Vini Moscoso chilor, 06/29/2025 07:45:00 AM, [address] [facility], Suite [facility], [place], [place], [phone], Provider Name:Vini Moscoso mino, 07/06/2025 09:30:00 AM, [address] [place] [address], Suite [facility], [place], [place], [phone], Progress Notes * REJIDeacon VILLALTADOB:[birth year] (83 yo M)Acc No.[id number]:07/19/2024 Patient:?Deacon ROMO :1940???Age:83 Y???Sex:Male Address:[address] [place] [address] [place] [address] Subjective: * Chief Complaints: * ???3 stool cards returned * Medical History:? * Surgical History:? * Hospitalization/Major Diagno stic Procedure:? * Medications:? Objective: * Vitals:? * Physical Examination:? Assessment: * Assessment: 1.?Colon cancer screening - Z12.11??? Plan: * Treatment: ? Value Reference Range ?Occult Blood, Stool, Guaiac NegX3 * Procedure Codes:? * true * Date:? Generated for Meg brenner/Min/eTransmitting on:?10/14/2024 11:01 AM EDT
--- OUTSIDE RECORDS SUMMARY | 2024-10-14 11:01 | XMS_ITS | Patient Health Record ---
Author Organization [facility] Address [address] [place] [address] Care Team Providers Care Procurement Clerk Name Role Phone Kelly RIGGS, Vini Primary Care Provider Cedrick Becerra Jr Allergies Allergen (clinical drug ingredient) Drug/Non Drug Allergy documented on EMR Reaction Allergy Type Onset Date Status seasonal (uncoded) Unknown Allergy A ctive Results Component Value Reference Range Notes Glucose, Whole Blood Reviewed date:01/27/2024 04:42:27 PM Interpretation: Performing Lab:[facility], [address] [place] [phone] Notes/Report: Glucose, Whole Blood 133 60-115 mg/dL METER # : [id number] Pathology Reviewed date:01/29/2024 02:29:14 PM Interpretation: Performing Lab:[facility], [address] [place] [phone] Notes/Report: ----- Name: Nury Romo Age/Sex: 83/M : 1940 Unit#: [id number] Attend Dr: Cedrick Justin MD Re01/26/24 Status : [facility] Location: [facility] Disch: ----- SPEC : [id number] RECD : 01/26/24 STATUS: STANISLAW CARDOZO NUM: [id number] DEISY: 01/26/[address]: Cedrick Justin MD [...] Nury Romo Age/Sex: 83/M : 1940 Unit#: [id number] Attend Dr: Cedrick Justin MD Re01/26/24 Status : [facility] Location: [facility] Disch: ----- SPEC : [id number] RECD : 01/26/24-1157 STATUS: STANISLAW CARDOZO NUM: [id number] DEISY: 01/26/24-[address] [facility] [address]: Cedrick Justin MD ENTERED: 01/26/24-12 [...] Physicians [address] [place] [address] Cedrick Justin MD [facility] [address] [place] [address] ----- Signed (signature on file) [...] Problem Status W/U Status Risk Notes Problem 986969271 Colon cancer screening (Z12.11) Active confirmed Problem 252797758 Personal history of colonic polyps (Z86.010) Active confirmed Problem 768570559 Long-term use of aspirin therapy (Z79.82) Active confirmed Problem 617975741 Long-term curren t use of high risk medication other than anticoagulant (Z79.899) Active confirmed Problem 137930766 FH: colon cancer (Z80.0) Active confirmed Problem 01045846 Hypertension, unspecified type (I10) Active confirmed Vital Signs Temperature 97.7 degrees Fahrenheit 12/09/2023 Blood pressure diastolic 00 mm Hg 12/09/2023 Height 69.5 in 12/09/2023 Blood pressure systolic 000 mm Hg 12/09/2023 Weight 221 lb 6 oz lbs 12/09/2023 BMI 32.22 kg/m2 12/09/2023 Encounters Encounter Location Date Provider Diagnosis [facility] [address] [place] [phone] 01/26/2024 Cedrick Justin Jr Colon cancer screening Z12.11 ; Family history of colon cancer Z80.0 and Colon polyps K63.5 [facility] [address] [place] [phone] 12/09/2023 Cedrick Justin Jr Colon cancer screening Z12.11 ; Long-term use of aspirin therapy Z79.82 and FH: colon cancer Z80.0 [facility] [address] [place] [phone] 01/29/2024 Cedrick Justin Jr Assessments Encounter Date [...] Provider Name:Cedrickmaikel licona , 01/25/2025 09:20:00 AM, [address] [place] [address], [address], [place], [phone], Insurance Providers Payer Name Payer Address Payer Phone Subscriber Number Group Number Insured Name Patient Relationship to Insured Coverage Start Date Coverage End Date [facility] [address] [place], [place] [phone] [id number] DEACON ROMO Self - patient is the insured [employer] [address] [place] [address] [id number] DEACON ROMO Self - patient is the [...]
[2024-10-14 11:13] LABS: Iron 20 mcg/dL (45-160); Percent Iron Saturation 5 % (15-50); Total Iron Binding Capacity 364 mcg/dL (228-428); Unsaturated Iron Binding 344 ug/dL
== END 2024-10-14 10:34 | disposition home or self-care (01) ==
LOC: HO.LNP 10:33
PROVIDERS: Visit Provider Internal Medicine
DX: E61.1 Iron deficiency (principal)
CPT/HCPCS: 83540; 85025

== ENCOUNTER 2024-12-22 10:46 | Outpatient (REF) | payer MEDICARE, OTHER, SELFPAY ==
--- OUTSIDE RECORDS SUMMARY | 2024-01-26 06:00 | XMS_ITS ---
Author Organization [facility] Address [address] [place] [address] [place] [address] Care Team Providers Care Boiler Tender Name Role Phone Vini Mendoza MD Primary Care Provider Jennifer Justin Jr, Cedrick Unavailable REASON FOR VISIT screening Encounters Encounter Location Date Provider Diagnosis [facility] [place] [address] [place] [id number] 01/26/2024 Cedrick Justin Jr Colon cancer screening [...] Provider Name:Cedrick licona Jr, 05/15/2025 09:20:00 AM, [address] [place] [address], [address], [place], [address], Progress Notes * TOMEKA OLIVIERDOB:[birth year] (84 yo M)Acc No.[id number]:01/26/2024 COLON WITH MAC Patient: TOMEKA IRVIN Provider: Jerica Justin MD :1940 A ge:83 Y S ex:Male Date:01/26/2024 Address:[address] [place] [address] [facility] Pcp:Vini Mendoza MD Subjective: * Chief Complaints: * 1 . Screening. * Medical History: Objective: * Vitals: Assessment: * Assessment: 1. C olon cancer screening - Z12.11 (Primary) 2 . F amily history of colon cancer - Z80.0 3 . C olon polyps - K63.5 Plan: * Treatment: * Procedure Codes: 4 5385 LESION REMOVAL COLONOSCOPY, 05291 LESION REMOVE COLONOSCOPY, Modifiers: 59 , 00803 COLONOSCOPY AND BIOPSY, Modifiers: 59 , 0529F INTRVL 3+YRS PTS CLNSCP DOCD * * The named appointment provid er may or may not be the originator of this progress note, and it is not deemed complete until electronically signed by the appointment provider. Sign off status: Pending * Provider: Jerica Justin MD Date: 0 01/26/2024 Generated for Meg brenner/Min/Jordenitting on: 0 12/22/2024 11:38 AM EDT
--- OUTSIDE RECORDS SUMMARY | 2024-11-30 05:00 | XMS_ITS ---
Author Name [facility] [place] [facility] [place] Organization [place] Address [address] [place] [address] Care Team Providers Care Quality Assurance Consultant Name Role Phone MISSY MALLORY Primary Care [...] [facility] ([place]NR) MEDICARE ADVANTAGE [facility] (WNR) Jun 01, 2023 [id number] [phone] TOMEKA OLIVIER PATIENT [employer] [facility] (WNR) MEDICARE ADVANTAGE [place] Jun 01, 2021 [id number] [phone] TOMEKA OLIVIER PATIENT FOR LIFE TFL* Nov 30, 2018 [id number] TOMEKA OLIVIER PATIENT Selected Encounter This section includes the information on record at [place] for the Encounter. Date/Time Encounter Type Encounter Description Reason Provider Source Nov 30, 2024 09:00 AM OFFICE O/P EST MOD 30 MIN PRIMARY CARE/MEDICINE ICD-10-CM I10 Essential (primary) hypertension MISSY MALLORY [facility] Encounter Template Text not used by [place] Assessments - Encounter Diagnoses This section includes the primary and secondary diagnoses documented for the Encounter. Date/Time Primary/Secondary Diagnosis Diagnosis Name Provider Source Nov 30, 2024 09:00 AM PRIMARY Essential (primary) hypertension MISSY MALLORY [place] [facility] [place] [facility] Nov 30, 2024 09:00 AM SECONDARY Benign prostatic hyperplasia without lower urinry tract symp [facility] [place] [facility] Nov 30, 2024 09:00 AM SECONDARY Hyperlipidemia, unspecified MOHAMUDMISSY [place] [facility] [place] [facility] Nov 30, 2024 09:00 AM SECONDARY Type 2 diabetes mellitus without complications [facility] [place] [facility] Vital Signs: All taken on the encounter date This section contains inpatient and outpatient Vital Signs collected on the date of the Encounter. Date/Time Temperature Pulse Blood Pressure Respiratory Rate SP02 Pain Height Weight Body Mass Index Source Nov 30, 2024 09:02 AM 98.9 F 60 /min 134/89 mm[Hg] 16 /min 99 % 5 198 lb 28 [place] [facility] [place] [facility] Social History: Smoking Status (Most current) and Tobacco Use (All prior to encounter date) This section includes the most current, and the historical, smoking and tobacco- related health factors from the [place] facility where the Encounter took place. Current Smoking Status This section includes the most current smoking, or tobacco-related health factor, from the [place] facility where the Encounter took place. Date/Time Current Smoking Status Comment Facil ity Nov 27, 2023 09:00 AM VA-TOBACCO FORMER USER [place] [facility] [place] [facility] Tobacco Use History This section includes a history of the smoking, or tobacco-related health factors, that were collected on or before the date of the Encounter. The data comes from the [place] facility where the Encounter took place. Date/Time Smoking Status/Tobacco Use Comment F acility Nov 27, 2023 09:00 AM VA-TOBACCO QUIT 15 YRS OR MORE [place] [facility] [place] [facility] Nov 26, 2022 09:30 AM VA-TOBACCO NEVER USED [place] [facility] [place] [facility] Nov 26, 2021 09:00 AM VA-TOBACCO NEVER USED [facility] [place] [facility] May 01, 2020 11:00 AM VA-TOBACCO NEVER USED [facility] [place] [facility] Apr 19, 2019 02:33 PM VA-TOBACCO FORMER USER [facility] [place] [facility] Apr 19, 2019 02:33 PM VA-TOBACCO QUIT 15 YRS OR MORE [place] [facility] [place] [facility] Encounter Notes: All associated encounter notes [...] essential hypertension 2. Diabetes Mellitus Type 2 ([facility] [id number]) 3. Benign Prostatic Hypertrophy Without Outflow Obstruction ([facility] [id number]) 4. Hyperlipidemia ([facility] [id number]) Allergies: Patient has answered NKA The following [...] HPI PHYS ICAL EXAM GENERAL: well appearing [place] in NAD, speeking in clear sentences. RESP: [...] longer following with off-site PCP, please call first front ventilator to schedule sooner appt with VA PCP. Today I spent 25 minutes on some or all of the following: chart review, history, physical examination, treatment planning education and counseling of the patient/family/health care marketing manager, placing orders, communicating with other health care [...] of active outpatient prescriptions dispensed from this [facility] (local) and dispensed from another [place] or [facility] facility (remote) as well as inpatient orders [...] Nurse Practitioner Signed: 11/30/2024 09:45 MISSY MALLORY [place] [facility] [place] [facility] Nov 30, 2024 09:06 AM PREVENTIVE MEDICINE NURSING NOTE: LOCAL TITLE: CLINICAL REMINDERS/NURSING STANDARD TITLE: PREVENTIVE MEDICINE NURSING NOTE DATE OF NOTE: NOV 30, 2024@09:06 ENTRY DATE: NOV 30, 2024@09:06:42 AUTHOR: HUANG CRUZ COSIGNER: URGENCY: STATUS: COMPLETED Suicide Screen: C-SSRS Screening [place] Suicide Severity Rating Scale (C-SSRS) screener 1. [...] Not worried about housing near future The [employer] reports the following: Within the past 12 [...] due to responses to other questions. 5. [place] numb or detached from people, activities, or your surroundings? Response not required due to responses to other questions. 6. [place] guilty or unable to stop blaming yourself [...] NURSE Signed: 11/30/2024 09:12 [facility]
--- OUTSIDE RECORDS SUMMARY | 2024-12-19 10:15 | XMS_ITS ---
Author Organization Vini eMndoza MD Address [address] [place] [phone] Care Team Providers Care Infertility Nurse Name Role Phone Vini Mendoza Primary Care Provider [phone] REASON FOR VISIT Discharge summary rec'd Encounters Encounter Location Date Provider Diagnosis Vini Mendoza MD 10 [facility] [address] [place] [phone] 12/19/2024 Vini Mendoza Plan Of Treatment Next Appt Details Provider Name:Vini herzog, 12/29/2024 07:30:00 AM, [address] [place] [address], Suite [facility], [place], [place], [phone], Provider Name:Vini woor, 12/30/2024 02:00:00 PM, [address], [address], [place], [phone], Provider Name:Vini Moscoso mino, 06/29/2025 07:45:00 AM, [address] [facility], [address], [place], [phone], Provider Name:Vini Moscoso mino, 07/06/2025 09:30:00 AM, [address] [place] [address], [address], [place], [phone], Progress Notes * Deacon ROMODOB:[birth year] (84 yo M)Acc No.[id number]:12/19/2024 Patient: Deacon IRVIN :1940 A ge:84 Y S ex:Male Address:[address] [place] [address], [place] [address] * * Date:
[2024-12-22 10:57] LABS: MANUAL DIFF FLAG NO
[2024-12-22 11:14] LABS: Hematocrit 30.2 % (42.0-52.0); Hemoglobin 9.2 g/dl (14.0-18.0); Imm Gran Abs Auto 0.13 X10*3/uL (0.00-0.03); Imm Gran Pct Auto 0.8 % (0.0-0.4); Lymphocytes Absolute Auto 2.2 X10*3/uL (1.2-4.9); Mean Corpuscular HGB Conc 30.5 g/dl (31.0-36.0); Mean Corpuscular Hemoglobin 25.0 pg (27.0-33.0); Mean Corpuscular Volume 82.1 fL (80.0-98.0); NRBC Abs Auto 0.000 X10*3/uL (0.0-0.012); NRBC Pct Auto 0.0 /100WBC (0.0-0.2); Platelet Count 504 X10*3/uL (160-400); Red Blood Count 3.68 X10*6/uL (4.60-5.80); White Blood Count 17.2 X10*3/uL (4.8-10.8)
[2024-12-22 11:58] LABS: Alanine Aminotransferase 65 U/L (0-40); Albumin Level 3.2 g/dL (3.5-5.0); Alkaline Phosphatase 113 U/L (39-117); Anion Gap 14 (12-20); Aspartate Amino Transferase 46 U/L (5-37); Blood Urea Nitrogen 42 mg/dL (9-16); Calcium 8.5 mg/dL (8.4-10.2); Carbon Dioxide 26 mmol/L (22-29); Chloride 103 mmol/L (96-108); Estimated Glomerular Filt Rate 60; Potassium 4.4 mmol/L (3.3-5.1); Sodium 139 mmol/L (135-145); Total Protein 5.8 g/dL (6.5-8.0)
== END 2024-12-22 10:47 | disposition home or self-care (01) ==
LOC: HO.HVNA 10:46
PROVIDERS: Visit Provider Internal Medicine
DX: I21.4 Non-ST elevation (NSTEMI) myocardial infarction (principal); E11.65 Type 2 diabetes mellitus with hyperglycemia; D50.0 Iron deficiency anemia secondary to blood loss (chronic)
CPT/HCPCS: 36415; 80053; 85025

== ENCOUNTER 2024-12-28 09:46 | Outpatient (REF) | payer MEDICARE, OTHER, SELFPAY ==
--- OUTSIDE RECORDS SUMMARY | 2024-01-26 06:00 | XMS_ITS ---
Author Organization [facility] Address [address] [place] [address] [place] [address] Care Team Providers Care Business Unit Manager Name Role Phone Vini Mendoza MD Primary Care Provider Jennifer Justin Jr, Cedrick Unavailable [phone] REASON FOR VISIT screening Encounters Encounter Location Date Provider Diagnosis [facility] [place] [address] [place] [phone] 01/26/2024 Cedrick Justin Jr Colon cancer screening [...] Next Appt Details Provider Name:Cedrick licona Jr, 05/15/2025 09:20:00 AM, [address] [place] [address], [address], [place], [address], Progress Notes * TOMEKA OLIVIERDOB:[birth year] (84 yo M)Acc No.[id number]:01/26/2024 COLON WITH MAC Patient: TOMEKA IRVIN Provider: Jerica Justin MD :1940 A ge:83 Y S ex:Male Date:01/26/2024 Address:[address] [place] [address] [facility] Pcp:Vini Mendoza MD Subjective: * Chief Complaints: * 1 . Screening. * Medical History: Objective: * Vitals: Assessment: * Assessment: 1. C olon cancer screening - Z12.11 (Primary) 2 . F amily history of colon cancer - Z80.0 3 . C olon polyps - K63.5 Plan: * Treatment: * Procedure Codes: 4 5385 LESION REMOVAL COLONOSCOPY, 69004 LESION REMOVE COLONOSCOPY, Modifiers: 59 , 25538 COLONOSCOPY AND BIOPSY, Modifiers: 59 , 0529F INTRVL 3+YRS PTS CLNSCP DOCD * * The named appointment provid er may or may not be the originator of this progress note, and it is not deemed complete until electronically signed by the appointment provider. Sign off status: Pending * Provider: Jerica Justin MD Date: 0 01/26/2024 Generated for Meg brenner/Min/Jordenitting on: 0 12/28/2024 10:23 AM EDT
--- OUTSIDE RECORDS SUMMARY | 2024-12-19 10:15 | XMS_ITS ---
Author Organization Vini Mendoza MD Address [address] [place] [phone] Care Team Providers Care Vp Communications Name Role Phone Vini Mendoza Primary Care Provider REASON FOR VISIT Discharge summary rec'd Encounters Encounter Location Date Provider Diagnosis Vini Mendoza MD [address] [facility] [address] [place] [phone] 12/19/2024 Vini Mendoza Plan Of Treatment Next Appt Details Provider Name:Vini herzog, 12/29/2024 07:30:00 AM, [address] [place] [address], Suite [facility], [place], [place], [phone], Provider Name:Vini woor, 12/30/2024 02:00:00 PM, [address], [address], [place], [phone], Provider Name:Vini Moscoso mino, 06/29/2025 07:45:00 AM, [address] [facility], [address], [place], [phone], Provider Name:Vini Moscoso mino, 07/06/2025 09:30:00 AM, [address] [place] [address], [address], [place], [phone], Progress Notes * Deacon ROMODOB:[birth year] (84 yo M)Acc No.[id number]:12/19/2024 Patient: Deacon IRVIN :1940 A ge:84 Y S ex:Male Address:[address] [place] [address], [place] [address] * true * Date: Generated for Meg brenner/Min/eTransmitting on: 0 12/28/2024 10:23 AM EDT
--- OUTSIDE RECORDS SUMMARY | 2024-12-28 10:24 | XMS_ITS | Clinical Summary ---
Author Organization [facility] Address [address] [facility] [address] [address] [place] [address] Phone Care Team Providers Care Cargo Worker Name Role Phone Pcp, Unknown Primary Care Provider Unavailabl e Encounters Date Type Department Care Team Description 12/21/2024 Orders Only [facility] [address] [place] [address] ProviderLupe MD from Last 3 Months Social History Tobacco Use Types Packs/Day Years Used Date Smoking Tobacco: Never Assessed Education Answer Date Recorded Are you interested in more education? Not on danielle e 12/21/2024 Are you concerned about learning? Not on file 12/21/2024 No 12/21/2024 No 12/21/2024 Digital Access Answer Date Recorded No 12/21/2024 No 12/21/2024 Reliable internet access at home? Not on file 12/21/2024 Device with a working camera? Not on file Sex and Gender Information Value Date Recorded Sex Assigned at Not on file Legal Sex Male 2:36 PM EDT Gender Identity Not on file Sexual Orientation Not on file Plan of Treatment Health Maintenance Due Date Last Done Comments Adult Td,Tdap Booster 1940 DEPRESSION SCREENING 1953 PNEUMOCOCCAL VACCINES (50+ y ears) (1 of 1 - PCV) 10/08/1991 ZOSTER VACCINES (1 of 2) 10/08/1991 RSV VACCINE (1 - 1-dose 75+ series) 2016 COVID-19 VACCINE (2023-2 5 season) 2024 HEPATITIS A VACCINES Aged Out No long er eligible based on patient's age to complete this topic HIB VACCINES Aged Out No longer eligi ble based on patient's age to complete this topic MENINGOCOCCAL VACCINES (ACWY) Aged Out No longer eligible based on patient's age to complete this topic MENINGOCOCCAL VACCINES (B) Aged Out N o longer eligible based on patient's age to complete this topic Medical Devices Not on file Procedures Procedure Name Priority Date/Time Associated Diagnosis Comments OUTSIDE CARDIAC CATH Routine 12/06/2024 2:40 PM EDT from Last 3 Months Results * Outside Cardiac Catheterization Report Only (12/06/2024 2:40 PM EDT) us Historical Provider MD MARIE CARDIAC CATH ORDERABLE S Final Result from Last 3 Months Insurance [facility] MEDICARE REPLACEMENT [facility] MEDICARE SUPPLEMENT [facility] Address: [facility] [address] [place] [address] [facility] REPL[facility] FOR LIFE MEDICARE SUPPLEMENT MEDICARE REPLACEMENT FOR LIFE MEDICARE SUPPLEMENT [facility] Address: [address] [address] MEDICARE REPLACEMENT FOR LIFE MEDICARE SUPPLEMENT [facility] Address: [address] [address] [facility] FOR [facility] MEDICARE SUPPLEMENT [employer] O MEDICARE REPLACEMENT FOR LIFE MEDICARE SUPPLEMENT [facility] Address: [facility] [address] [place] [address] Care Teams Cargo Worker Relationship Specialty Start Date End Date Pcp, Unknown PCP - General 12/21/24 Additional Source Comments The information contained in this document represents components of the legal health record. It is not the complete legal health record.[facility]
[2024-12-28 10:54] LABS: Alanine Aminotransferase 116 U/L (0-40); Albumin Level 3.4 g/dL (3.5-5.0); Alkaline Phosphatase 139 U/L (39-117); Anion Gap 11 (12-20); Aspartate Amino Transferase 116 U/L (5-37); Blood Urea Nitrogen 12 mg/dL (9-16); Calcium 8.5 mg/dL (8.4-10.2); Carbon Dioxide 24 mmol/L (22-29); Chloride 111 mmol/L (96-108); Estimated Glomerular Filt Rate > 60; Potassium 5.2 mmol/L (3.3-5.1); Sodium 141 mmol/L (135-145); Total Protein 6.0 g/dL (6.5-8.0)
== END 2024-12-28 09:47 | disposition home or self-care (01) ==
LOC: HO.HVNA 09:46
PROVIDERS: Visit Provider Internal Medicine
DX: D64.9 Anemia, unspecified (principal)
CPT/HCPCS: 36415; 80053

== ENCOUNTER 2024-12-29 14:41 | Outpatient (REF) | payer MEDICARE, OTHER, SELFPAY ==
--- OUTSIDE RECORDS SUMMARY | 2024-01-26 06:00 | XMS_ITS ---
Author Organization [facility] Address [address] [place] [address] Care Team Providers Care Zigzag Machine Operator Name Role Phone Vini Mendoza MD Primary Care Provider Jennifer Justin Jr, Cedrick Unavailable REASON FOR VISIT screening Encounters Encounter Location Date Provider Diagnosis [facility] [place] [address] [place] [phone] 01/26/2024 Cedrick Justin Jr Colon cancer screening [...] Provider Name:Cedrick licona Jr, 01/09/2025 01:15:00 PM, [address] [place] [address], [address], [address], Provider Name:Cedrick licona Jr, 05/15/2025 09:20:00 AM, [address] [place] [address], [address], [address], Progress Notes * TOMEKA OLIVIERDOB:[birth year] (84 yo M)Acc No.[id number]:01/26/2024 COLON WITH MAC Patient: TOMEKA IRVIN Provider: Jerica Justin MD :1940 A ge:83 Y S ex:Male Date:01/26/2024 Address:[address] [place] [address], [place] [phone] Pcp:Vini Mendoza MD Subjective: * Chief Complaints: * 1 . Screening. * Medical History: Objective: * Vitals: Assessment: * Assessment: 1. C olon cancer screening - Z12.11 (Primary) 2 . F amily history of colon cancer - Z80.0 3 . C olon polyps - K63.5 Plan: * Treatment: * Procedure Codes: 4 5385 LESION REMOVAL COLONOSCOPY, 20615 LESION REMOVE COLONOSCOPY, Modifiers: 59 , 17473 COLONOSCOPY AND BIOPSY, Modifiers: 59 , 0529F INTRVL 3+YRS PTS CLNSCP DOCD * * The named appointment provid er may or may not be the originator of this progress note, and it is not deemed complete until electronically signed by the appointment provider. Sign off status: Pending * Provider: Jerica Justin MD Date: 0 01/26/2024 Generated for Meg brenner/Min/Jordenitting on: 0 12/29/2024 02:45 PM EDT
--- OUTSIDE RECORDS SUMMARY | 2024-12-29 08:45 | XMS_ITS ---
Author Organization Vini Mendoza MD Address [address] [place] [phone] Care Team Providers Care Curtain Framer Name Role Phone Vini Mendoza Primary Care [...] Location Date Provider Diagnosis Vini Mendoza MD [address] [place] [address] Drive [address] [place], [place] [phone] 12/29/2024 Vini Mendoza Type 2 diabetes arabella [...] A1c 12/29/2024 Next Appt Details Provider Name:Vini hrezog, 06/29/2025 07:45:00 AM, [address], [address], [place], [place], [phone], Provider Name:Vini Moscoso ier, 07/06/2025 09:30:00 AM, [address], [address], [place], [phone], Progress Notes * Deacon ROMODOB:[birth year] (84 yo M)Acc No.[id number]:12/29/2024 Progress Note Patient: Deacon IRVIN Provider: Galina Mendoza MD :1940 A ge:84 Y S ex:Male Date:12/29/2024 Address:[address] [place] [address], [phone] Subjective: * Chief Complaints: * 1 . [...] Pending * Provider: Galina Mendoza MD Date: 12/29/2024 Generated for Meg brenner/Min/Derick on: 12/29/2024 02:46 PM EDT
[2024-12-29 14:43] LABS: MANUAL DIFF FLAG NO
--- OUTSIDE RECORDS SUMMARY | 2024-12-29 14:46 | XMS_ITS | Clinical Summary ---
Author Organization [facility] Address [address] [facility] [address] [address] [place] [address] Phone Care Team Providers Care Feed And Farm Management Adviser Name Role Phone Pcp, Unknown Primary Care Provider Unavailabl e Encounters Date Type Department Care Team Description 12/21/2024 Orders Only [facility] [address] [facility] [address], [address] [place] [address] ProviderLupe MD from Last 3 Months Social [...] Final Result from Last 3 Months Insurance [facility] MEDICARE REPLACEMENT [facility] MEDICARE SUPPLEMENT [facility] MEDICARE REPLACEMENT FOR LIFE MEDICARE SUPPLEMENT MEDICARE REPLACEMENT FOR LIFE MEDICARE SUPPLEMENT MEDICARE REPLACEMENT FOR LIFE MEDICARE SUPPLEMENT [facility] MEDIC[facility] REPLACEMENT [facility] FOR LIFE MEDICARE SUPPLEMENT [employer] O MEDICARE REPLACEMENT FOR LIFE MEDICARE SUPPLEMENT Care Teams Feed And Farm Management Adviser Relationship Specialty Start Date End Date Pcp, Unknown PCP - General 12/21/24 Additional Source Comments The information contained in this document represents components of the legal health record. It is not the complete legal health record.[facility]
[2024-12-29 14:49] LABS: Hematocrit 26.7 % (42.0-52.0); Hemoglobin 7.8 g/dl (14.0-18.0); Imm Gran Abs Auto 0.04 X10*3/uL (0.00-0.03); Imm Gran Pct Auto 0.5 % (0.0-0.4); Lymphocytes Absolute Auto 1.7 X10*3/uL (1.2-4.9); Mean Corpuscular HGB Conc 29.2 g/dl (31.0-36.0); Mean Corpuscular Hemoglobin 24.3 pg (27.0-33.0); Mean Corpuscular Volume 83.2 fL (80.0-98.0); NRBC Abs Auto 0.000 X10*3/uL (0.0-0.012); NRBC Pct Auto 0.0 /100WBC (0.0-0.2); Platelet Count 324 X10*3/uL (160-400); Red Blood Count 3.21 X10*6/uL (4.60-5.80); White Blood Count 8.8 X10*3/uL (4.8-10.8)
[2024-12-29 14:55] LABS: Alanine Aminotransferase 136 U/L (0-40); Albumin Level 3.2 g/dL (3.5-5.0); Alkaline Phosphatase 148 U/L (39-117); Aspartate Amino Transferase 157 U/L (5-37); Total Protein 5.7 g/dL (6.5-8.0)
== END 2024-12-29 14:42 | disposition home or self-care (01) ==
LOC: HO.LNP 14:41
PROVIDERS: Visit Provider Internal Medicine
DX: K62.5 Hemorrhage of anus and rectum (principal); R79.89 Other specified abnormal findings of blood chemistry
CPT/HCPCS: 80076; 85025

== ENCOUNTER 2024-12-30 10:07 | Outpatient (REF) | payer MEDICARE, OTHER, SELFPAY ==
--- OUTSIDE RECORDS SUMMARY | 2024-01-26 06:00 | XMS_ITS ---
Author Organization [facility] Address [address] [place] [address] Care Team Providers Care Apparel Patternmaker Name Role Phone Vini Mendoza MD Primary Care Provider Jennifer Justin Jr, Cedrick Unavailable REASON FOR VISIT screening Encounters Encounter Location Date Provider Diagnosis [facility] [place] [address] [place] [phone] 01/26/2024 Cedrick Justin Jr Colon cancer screening [...] Provider Name:Cedrick licona Jr, 01/09/2025 01:15:00 PM, [address] [place] [address], [address], [address], Provider Name:Cedrick licona Jr, 05/15/2025 09:20:00 AM, [address] [place] [address], [address], [address], Progress Notes * TOMEKA OLIVIERDOB:[birth year] (84 yo M)Acc No.[id number]:01/26/2024 COLON WITH MAC Patient: TOMEKA IRVIN Provider: Jerica Justin MD :1940 A ge:83 Y S ex:Male Date:01/26/2024 Address:[address] [place] [address], [place] [id number] Pcp:Vini Mendoza MD Subjective: * Chief Complaints: * 1 . Screening. * Medical History: Objective: * Vitals: Assessment: * Assessment: 1. C olon cancer screening - Z12.11 (Primary) 2 . F amily history of colon cancer - Z80.0 3 . C olon polyps - K63.5 Plan: * Treatment: * Procedure Codes: 4 5385 LESION REMOVAL COLONOSCOPY, 51696 LESION REMOVE COLONOSCOPY, Modifiers: 59 , 39301 COLONOSCOPY AND BIOPSY, Modifiers: 59 , 0529F INTRVL 3+YRS PTS CLNSCP DOCD * * The named appointment provid er may or may not be the originator of this progress note, and it is not deemed complete until electronically signed by the appointment provider. Sign off status: Pending * Provider: Jerica Justin MD Date: 0 01/26/2024 Generated for Meg brenner/Min/Donsmitting on: 0 12/30/2024 10:17 AM EDT
--- OUTSIDE RECORDS SUMMARY | 2024-12-29 08:45 | XMS_ITS ---
Author Organization Vini Mendoza MD Address [address] [place] [phone] Care Team Providers Care Government Auditor Name Role Phone Vini Mendoza Primary Care Provider REASON FOR VISIT FASTING LIPIDS Medications Medication SIG (Take, Route, Frequency, Duration) Notes Start Date End Date Status Finasteride 5 MG 1 tablet Orally Once a day Active Atorvastatin Calcium 10 MG TAKE ONE TABLET BY MOUTH EVERY DAY Active Fluticasone Propionate 50 MCG/ACT SPRAY 1 SPRAY INTO EACH NOSTRIL ONCE A DAY for 180 Active Montelukast Sodium 10 MG TAKE ONE TABLET BY MOUTH EVERY EVENING for 90 Active Irbesartan-hydroCHLOROth iazide 150-12.5 MG TAKE ONE TABLET BY MOUTH EVERY DAY for 90 Active Xyzal Allergy 24HR 5 MG 1 tablet in the evening Orally Once a day for 30 day(s) Active Metoprolol Succinate ER 50 MG TAKE ONE TABLET BY MOUTH EVERY DAY for 90 Active OneTouch Ultra Test TEST BLOOD GLUCOSE T WICE A DAY for 50 Active OneTouch Delica Lancing Dev as directed for 50 03/03/2013 Active Aspir-Low 81 MG 1 tablet Orally Once a day for 30 day(s) Active Januvia 100 MG TAKE ONE TABLET BY M OUTH EVERY DAY for 90 Active Ozempic (0.25 or 0.5 MG/DOSE) 2 MG/3ML as directed Subcutaneous 0.25 mg weekly fminth then .5mg weekly for 30 days 02/22/2024 Not-Taking Valtrex 1 GM 2 tablet Orally ever y 12 hrs for 1 dose 05/07/2012 Not-Taking Ozempic (2 MG/DOSE) 8 MG/3ML 2 mg Subcutaneous weekly 07/01/2024 Act queenie metFORMIN HCl 1000 MG TAKE ONE TABLET BY MOUTH TWICE A DAY WITH MEALS Active Nitrostat 0.4 MG 1 tablet under the tongue and allow to dissolve as needed. Take every 5 minutes up to 3 times if chest pain persists Sublingual Three times a day for 30 days 10/21/2024 Active Ozempic (1 MG/DOSE) 4 MG/3ML 1 mg Subcutaneous weekly 04/15/2024 Act queenie Encounters Encounter Location Date Provider Diagnosis Vini Mendoza MD [address] [place] [address] Drive [address] [place], [place] [phone] 12/29/2024 Vini Mendoza Type 2 diabetes arabella itus without complication E11.9 and Pure hypercholesterolemia E78.00 Assessments Encounter Date Diagnosis (ICD Code) Assessment Notes Treatment Notes Treatment Clinical Notes Section Notes 12/29/2024 Type 2 diabetes arabella itus without complication (ICD-10 - E11.9) 12/29/2024 Pure hypercholesterolemia (ICD-10 - E78.00) Plan Of Treatment Pending Test Test Name Order Date Liver Panel 12/29/2024 Glucose Fasting 12/29/2024 Lipid Panel with Reflex 12/29/2024 Hemoglobin A1c 12/29/2024 Next Appt Details Provider Name:Vini herzog, 01/02/2025 08:45:00 AM, [address], [address], [place], [place], [phone], Provider Name:Vini Moscoso ier, 06/29/2025 07:45:00 AM, [address], [address], [place], [phone], Provider Name:Vini Moscoso ier, 07/06/2025 09:30:00 AM, [address], [address], [place], [phone], Progress Notes * Deacon ROMODOB:[birth year] (84 yo M)Acc No.[id number]:12/29/2024 Progress Note Patient: Deacon IRVIN Provider: Galina Mendoza MD :1940 A ge:84 Y S ex:Male Date:12/29/2024 Address:[address] [place] [address] [place], [phone] Subjective: * Chief Complaints: * 1 . FASTING LIPIDS. * Medical History: * Medications: T aking OneTouch Ultra Test Strip TEST BLOOD GLUCOSE TWICE A DAY , Taking OneTouch Delica Lancing Dev Miscellaneous as directed , Taking Aspir-Low 81 MG Tablet Delayed Release 1 tablet Orally Once a day , Taking Xyzal Allergy 24HR 5 MG Tablet 1 tablet in the evening Orally Once a day , Taking Metoprolol Succinate ER 50 MG Tablet Extended Release 24 Hour TAKE ONE TABLET BY MOUTH EVERY DAY , Taking Montelukast Sodium 10 MG Tablet TAKE ONE TABLET BY MOUTH EVERY EVENING , Taking Irbesartan-hydroCHLOROthiazide 150-12.5 MG Tablet TAKE ONE TABLET BY MOUTH EVERY DAY , Taking Finasteride 5 MG Tablet 1 tablet Orally Once a day , Taking Atorvastatin Calcium 10 MG Tablet TAKE ONE TABLET BY MOUTH EVERY DAY , Taking Fluticasone Propionate 50 MCG/ACT Suspension SPRAY 1 SPRAY INTO EACH NOSTRIL ONCE A DAY , Taking Nitrostat 0.4 MG Tablet Sublingual 1 tablet under the tongue and allow to dissolve as needed. Take every 5 minutes up to 3 times if chest pain persists Sublingual Three times a day , Taking Ozempic (1 MG/DOSE) 4 MG/3ML Solution Pen-injector 1 mg Subcutaneous weekly , Taking Ozempic (2 MG/DOSE) 8 MG/3ML Solution Pen-injector 2 mg Subcutaneous weekly , Taking metFORMIN HCl 1000 MG Tablet TAKE ONE TABLET BY MOUTH TWICE A DAY WITH MEALS , Taking Januvia 100 MG Tablet TAKE ONE TABLET BY MOUTH EVERY DAY , Not-Taking/PRN Ozempic (0.25 or 0.5 MG/DOSE) 2 MG/3ML Solution Pen- injector as directed Subcutaneous 0.25 mg weekly fminth then .5mg weekly , Not-Taking/PRN Valtrex 1 GM Tablet 2 tablet Orally every 12 hrs Objective: * Vitals: Assessment: * Assessment: 1. T ype 2 diabetes mellitus without complication - E11.9 (Primary) 2 . P ure hypercholesterolemia - E78.00 Plan: * Treatment: 2. P ure hypercholesterolemia L AB: Liver Panel L AB: Glucose Fasting L AB: Lipid Panel with Reflex L AB: Hemoglobin A1c * * The named appointment provid er may or may not be the originator of this progress note, and it is not deemed complete until electronically signed by the appointment provider. Sign off status: Pending * Provider: Galina Mendoza MD Date: 0 12/29/2024 Generated for Meg brenner/Min/Jordenitting on: 0 12/30/2024 10:17 AM EDT
--- NOTE | ~2024-12-30 | US_ITS ---
EXAMINATION: US RETROPERITONEAL LIMITED (RENAL ONLY) CLINICAL INFORMATION: Benign prostate hyperplasia.. COMPARISON: Ultrasound abdomen dated January 07, 2025. TECHNIQUE: Real-time ultrasonographic kidneys using grayscale and color Doppler technique. FINDINGS: RIGHT KIDNEY: 12 x 6 x 5 cm (SAG x AP x TRV). There is renal cortical thinning. Normal echotexture. No hydronephrosis. There is a 0.8 cm exophytic anechoic lesion in the midportion without flow on color Doppler interrogation. LEFT KIDNEY: 12 x 6 x 5 cm (SAG x AP x TRV). There is renal cortical thinning. Normal echotexture. No hydronephrosis. There is a 3 mm hyperechoic structure in the lower pole of the corticomedullary junction. There is trace of perinephric fluid. US/US renal BI IMPRESSION: No hydronephrosis. 0.8 cm exophytic cyst, right kidney. Probable 3 mm nonobstructing calculus, left kidney. Trace of perinephric fluid, left retroperitoneum. Electronically signed by: Fabian Llamas MD 01/10/2025 01:19 PM EDT
[2024-12-30 10:19] LABS: MANUAL DIFF FLAG NO
[2024-12-30 11:01] LABS: Hematocrit 25.9 % (42.0-52.0); Hemoglobin 7.6 g/dl (14.0-18.0); Imm Gran Abs Auto 0.04 X10*3/uL (0.00-0.03); Imm Gran Pct Auto 0.6 % (0.0-0.4); Lymphocytes Absolute Auto 1.8 X10*3/uL (1.2-4.9); Mean Corpuscular HGB Conc 29.3 g/dl (31.0-36.0); Mean Corpuscular Hemoglobin 24.4 pg (27.0-33.0); Mean Corpuscular Volume 83.3 fL (80.0-98.0); NRBC Abs Auto 0.000 X10*3/uL (0.0-0.012); NRBC Pct Auto 0.0 /100WBC (0.0-0.2); Platelet Count 327 X10*3/uL (160-400); Red Blood Count 3.11 X10*6/uL (4.60-5.80); White Blood Count 7.3 X10*3/uL (4.8-10.8)
== END 2024-12-30 10:08 | disposition home or self-care (01) ==
LOC: HO.US 10:07
PROVIDERS: PCP Internal Medicine; Visit Provider Internal Medicine
DX: K62.5 Hemorrhage of anus and rectum (principal); N40.1 Benign prostatic hyperplasia with lower urinary tract symptoms
CPT/HCPCS: 36415; 76775; 85025

== ENCOUNTER → 2024-12-30 12:40 | Outpatient (BNV) | payer MEDICARE, OTHER, SELFPAY | PROVIDERS: PCP Internal Medicine; Visit Provider Radiology Diagnostic Radiology | DX: N40.1 Benign prostatic hyperplasia with lower urinary tract symptoms (principal) | CPT/HCPCS: 76775 ==

== ENCOUNTER 2025-01-02 11:49 | Outpatient (REF) | payer MEDICARE, OTHER, SELFPAY ==
--- OUTSIDE RECORDS SUMMARY | 2024-01-26 06:00 | XMS_ITS ---
Author Organization [facility] Address [address] [place] [address] Care Team Providers Care Mid Level Provider Name Role Phone Vini Mendoza MD Primary Care Provider Jennifer Justin Jr, Cedrick Unavailable REASON FOR VISIT screening Encounters Encounter Location Date Provider Diagnosis [facility] [place] [address] [place] [phone] 01/26/2024 Cedrick Justin Jr Colon cancer screening [...] Next Appt Details Provider Name:Cedrick licona Jr, 01/09/2025 01:15:00 PM, [address] [place] [address], [address], [address], Provider Name:Cedrick licona Jr, 05/15/2025 09:20:00 AM, [address] [place] [address], [address], [address], Progress Notes * TOMEKA OLIVIERDOB:[birth year] (84 yo M)Acc No.[id number]:01/26/2024 COLON WITH MAC Patient: TOMEKA IRVIN Provider: Jerica Justin MD :1940 A ge:83 Y S ex:Male Date:01/26/2024 Address:[address] [place] [address], [place] [id number] Pcp:Vini Mendoza MD Subjective: * Chief Complaints: * 1 . Screening. * Medical History: Objective: * Vitals: Assessment: * Assessment: 1. C olon cancer screening - Z12.11 (Primary) 2 . F amily history of colon cancer - Z80.0 3 . C olon polyps - K63.5 Plan: * Treatment: * Procedure Codes: 4 5385 LESION REMOVAL COLONOSCOPY, 97582 LESION REMOVE COLONOSCOPY, Modifiers: 59 , 23444 COLONOSCOPY AND BIOPSY, Modifiers: 59 , 0529F INTRVL 3+YRS PTS CLNSCP DOCD * * The named appointment provid er may or may not be the originator of this progress note, and it is not deemed complete until electronically signed by the appointment provider. Sign off status: Pending * Provider: Jerica Justin MD Date: 0 01/26/2024 Generated for Meg brenner/Min/Donsmitting on: 0 01/02/2025 12:36 PM EDT
--- OUTSIDE RECORDS SUMMARY | 2024-12-30 04:55 | XMS_ITS ---
Author Organization Vini Mendoza MD Address [address] [place] [phone] Care Team Providers Care Paper Rewinder Name Role Phone Vini Mendoza Primary Care Provider Results Component Value Reference Range Notes Complete Blood Count Auto Di ff Reviewed date:12/30/2024 11:59:39 AM Interpretation: Performing Lab:[facility], [address] [place] [phone] Notes/Report: White Blood Count 7.3 4.8-10.8 X10*3/uL Red Blood Count 3.11 4.60-5.80 X10*6/uL Hemoglobin 7.6 14.0-18.0 g/dl Hematocrit 25.9 42.0-52.0 % Mean Corpuscular Volume 83.3 80.0-98.0 fL Mean Corpuscular Hemoglobin 24.4 27.0-33.0 pg Mean Corpuscular HGB Conc 29.3 31.0-36.0 g/dl Red Cell Distribution Width 19.1 11.0-16.0 % Platelet Count 327 160-400 X10*3/uL Mean Platelet Volume 11.5 9.4-12.4 fL Neutrophils Percent Auto 60.9 45-73 % Imm Gran Pct Auto 0.6 0.0-0.4 % Lymphocytes Percent Auto 24.5 20-40 % Monocytes Percent Auto 5.9 2-11 % Eosinophils Percent Auto 7.0 0-4 % Basophils Percent Auto 1.1 0-2 % NRBC Pct Auto 0.0 0.0-0.2 /100WBC Neutrophils Absolute Auto 4.4 2.0-8.3 x10*3/u L Imm Gran Abs Auto 0.04 0.00-0.03 X10*3/uL Lymphocytes Absolute Auto 1.8 1.2-4.9 X10*3/u L Monocytes Absolute Auto 0.4 0.1-1.2 X10*3/uL Eosinophils Absolute Auto 0.5 0.0-0.4 X10*3/u L Basophils Absolute Auto 0.1 0.0-0.2 X10*3/uL NRBC Abs Auto 0.000 0.0-0.012 X10*3/uL REASON FOR VISIT US liver Encounters Encounter Location Date Provider Diagnosis Vini Mendoza MD [address] [place] [address] Drive [address] [place], [place] [phone] 12/30/2024 Vini Mendoza Elevated LFTs R79.89 and Rectal bleeding K62.5 Assessments Encounter Date Diagnosis (ICD Code) Assessment Notes Treatment Notes Treatment Clinical Notes Section Notes 12/30/2024 Elevated LFTs (ICD-10 - R79.89) 12/30/2024 Rectal bleeding (ICD-10 - K62.5) Plan Of Treatment Next Appt Details Provider Name:Vini herzog, 06/29/2025 07:45:00 AM, [address] [place] [address], [address], [place], [place], [phone], Provider Name:Vini Moscoso chilor, 07/06/2025 09:30:00 AM, [address], [address], [place], [phone], Progress Notes * Deacon ROMODOB:[birth year] (84 yo M)Acc No.[id number]:12/30/2024 Patient: Deacon IRVIN :1940 A ge:84 Y S ex:Male Address:[address] [place] [address] [place] [phone] Subjective: * Chief Complaints: * U S liver * Medical History: * Surgical History: * Hospitalization/Major Diagno stic Procedure: * Medications: Objective: * Vitals: * Physical Examination: Assessment: * Assessment: 1. E levated LFTs - R79.89 2 . R ectal bleeding - K62.5 Plan: * Treatment: * Procedure Codes: * true * Date: Generated for Meg brenner/Min/Donsmitting on: 0 01/02/2025 12:36 PM EDT
[2025-01-02 11:52] LABS: MANUAL DIFF FLAG NO
[2025-01-02 12:14] LABS: Hematocrit 25.8 % (42.0-52.0); Hemoglobin 7.6 g/dl (14.0-18.0); Imm Gran Abs Auto 0.04 X10*3/uL (0.00-0.03); Imm Gran Pct Auto 0.4 % (0.0-0.4); Lymphocytes Absolute Auto 2.2 X10*3/uL (1.2-4.9); Mean Corpuscular HGB Conc 29.5 g/dl (31.0-36.0); Mean Corpuscular Hemoglobin 24.6 pg (27.0-33.0); Mean Corpuscular Volume 83.5 fL (80.0-98.0); NRBC Abs Auto 0.000 X10*3/uL (0.0-0.012); NRBC Pct Auto 0.0 /100WBC (0.0-0.2); Platelet Count 303 X10*3/uL (160-400); Red Blood Count 3.09 X10*6/uL (4.60-5.80); White Blood Count 9.6 X10*3/uL (4.8-10.8)
--- OUTSIDE RECORDS SUMMARY | 2025-01-02 12:37 | XMS_ITS | Clinical Summary ---
Author Organization [facility] Address [address] [place] [address] Phone Care Team Providers Care Passenger Locomotive Engineer Name Role Phone Pcp, Unknown Primary Care Provider Unavailabl e Encounters Date Type Department Care Team Description 12/21/2024 Orders Only [facility] [address], [address] [place] [address] ProviderLupe MD from Last 3 Months Social [...] Final Result from Last 3 Months Insurance [facility] MEDICARE REPLACEMENT [facility]ICARE [facility]PPLE[facility] FOR LIFE MEDICARE SUPPLEMENT MEDICARE REPLACEMENT FOR LIFE MEDICARE SUPPLEMENT MEDICARE REPLACEMENT FOR LIFE MEDICARE [facility] RE[facility] FOR LIFE MEDICARE SUPPLEMENT [employer] O MEDICARE REPLACEMENT FOR LIFE MEDICARE SUPPLEMENT Care Teams Passenger Locomotive Engineer Relationship Specialty Start Date End Date Pcp, Unknown PCP - General 12/21/24 Additional Source Comments The information contained in this document represents components of the legal health record. It is not the complete legal health record.[facility]
== END 2025-01-02 11:50 | disposition home or self-care (01) ==
LOC: HO.LNP 11:49
PROVIDERS: Visit Provider Internal Medicine
DX: K62.5 Hemorrhage of anus and rectum (principal)
CPT/HCPCS: 85025

== ENCOUNTER 2025-01-05 10:52 | Outpatient (REF) | payer MEDICARE, OTHER, SELFPAY ==
--- OUTSIDE RECORDS SUMMARY | 2024-01-26 06:00 | XMS_ITS ---
Author Organization [facility] Address [address] [place] [address] [place] [address] Care Team Providers Care Commercial Agent Name Role Phone Vini Mendoza MD Primary Care Provider Jennifer Justin Jr, Cedrick Unavailable [phone] REASON FOR VISIT screening Encounters Encounter Location Date Provider Diagnosis [facility] [place] [address] [place] [phone] 01/26/2024 Cedrick Justin Jr Colon cancer screening [...] Appt Details Provider Name:Cedrick licona Jr, 01/09/2025 11:20:00 AM, [address] [place] [address], [address], [address], Provider Name:Cedrick licona Jr, 05/15/2025 09:20:00 AM, [address] [place] [address], [address], [address], Progress Notes * TOMEKA OLIVIERDOB:[birth year] (84 yo M)Acc No.[id number]:01/26/2024 COLON WITH MAC Patient: TOMEKA IRVIN Provider: Jerica Justin MD :1940 A ge:83 Y S ex:Male Date:01/26/2024 Address:[address] [place] [address], [place] [phone] Pcp:Vini Mendoza MD Subjective: * Chief Complaints: * 1 . Screening. * Medical History: Objective: * Vitals: Assessment: * Assessment: 1. C olon cancer screening - Z12.11 (Primary) 2 . F amily history of colon cancer - Z80.0 3 . C olon polyps - K63.5 Plan: * Treatment: * Procedure Codes: 4 5385 LESION REMOVAL COLONOSCOPY, 39896 LESION REMOVE COLONOSCOPY, Modifiers: 59 , 96593 COLONOSCOPY AND BIOPSY, Modifiers: 59 , 0529F INTRVL 3+YRS PTS CLNSCP DOCD * * The named appointment provid er may or may not be the originator of this progress note, and it is not deemed complete until electronically signed by the appointment provider. Sign off status: Pending * Provider: Jerica Justin MD Date: 0 01/26/2024 Generated for Meg brenner/Min/Donsmitting on: 0 01/05/2025 11:34 AM EDT
--- OUTSIDE RECORDS SUMMARY | 2024-11-30 05:00 | XMS_ITS ---
Author Name [facility] [place] [facility] [place] Organization [facility] [place] [place] Address [address] [place] [address] Care Team Providers Care Yarn Skeins Examiner Name Role Phone MISSY MALLORY Primary Care [...] Martínez's Name Patient's Relationship to Policy Martínez [facility] (WNR) MEDICARE ADVANTAGE [facility] (WNR) Jun 01, 2023 [id number] [phone] TOMEKA OLIVIER PATIENT AETNA [facility] (WNR) MEDICARE ADVANT[place] Jun 01, 2021 [id number] [phone] TOMEKA OLIVIER PATIENT FOR LIFE TFL* Nov 30, 2018 [id number] TOMEKA OLIVIER PATIENT Selected Encounter This section includes the information on record at [place] for the Encounter. Date/Time Encounter Type Encounter Description Reason Provider Source Nov 30, 2024 09:00 AM OFFICE O/P EST MOD 30 MIN PRIMARY CARE/MEDICINE ICD-10-CM I10 Essential (primary) hypertension MISSY MALLORY Rebecca Encounter Template Text not used by [place] Assessments - Encounter Diagnoses This section includes the primary and secondary diagnoses documented for the Encounter. Date/Time Primary/Secondary Diagnosis Diagnosis Name Provider Source Jan 03, 2025 07:44 AM PRIMARY Essential (primary) hypertension [facility] [place] [facility] Jan 03, 2025 07:44 AM SECONDARY Benign prostatic hyperplasia without lower urinry tract symp FAWN,LIA Coates [facility] [place] [facility] Jan 03, 2025 07:44 AM SECONDARY Hyperlipidemia, unspecified FAWN,LIA L [facility] [place] [facility] Jan 03, 2025 07:44 AM SECONDARY Type 2 diabetes mellitus without complications FAWN,LIA Coates [place] [facility] [place] [facility] Vital Signs: All taken on the encounter date This section contains inpatient and outpatient Vital Signs collected on the date of the Encounter. Date/Time Temperature Pulse Blood Pressure Respiratory Rate SP02 Pain Height Weight Body Mass Index Source Nov 30, 2024 09:02 AM 98.9 F 60 /min 134/89 mm[Hg] 16 /min 99 % 5 198 lb 28 [place] [facility] Social History: Smoking Status (Most current) and Tobacco Use (All prior to encounter date) This section includes the most current, and the historical, smoking and tobacco- related health factors from the [place] facility where the Encounter took place. Current Smoking Status This section includes the most current smoking, or tobacco-related health factor, from the [place] facility where the Encounter took place. Date/Time Current Smoking Status Comment Facil ity Nov 27, 2023 09:00 AM VA-TOBACCO FORMER USER [place] [facility] Tobacco Use History This section includes a history of the smoking, or tobacco-related health factors, that were collected on or before the date of the Encounter. The data comes from the [place] facility where the Encounter took place. Date/Time Smoking Status/Tobacco Use Comment F acility Nov 27, 2023 09:00 AM VA-TOBACCO QUIT 15 YRS OR MORE [place] [facility] [place] [facility] Nov 26, 2022 09:30 AM VA-TOBACCO NEVER USED [place] [facility] [place] [facility] Nov 26, 2021 09:00 AM VA-TOBACCO NEVER USED [facility] [place] [facility] May 01, 2020 11:00 AM VA-TOBACCO NEVER USED [facility] [place] [facility] Apr 19, 2019 02:33 PM VA-TOBACCO FORMER USER [facility] [place] [facility] Apr 19, 2019 02:33 PM VA-TOBACCO QUIT 15 YRS OR MORE [place] [facility] [place] [facility] Encounter Notes: All associated encounter [...] essential hypertension 2. Diabetes Mellitus Type 2 ([facility] [id number]) 3. Benign Prostatic Hypertrophy Without Outflow Obstruction ([facility] [id number]) 4. Hyperlipidemia ([facility] [id number]) Allergies: Patient has answered NKA The following [...] HPI PHYS ICAL EXAM GENERAL: well appearing [place] in NAD, speeking in clear sentences. RESP: [...] following with off-site PCP, please call front desk supervisor to schedule sooner appt with VA PCP. Today I spent 25 minutes on some or all of the following: chart review, history, physical examination, treatment planning education and counseling of the patient/family/certified caregiver, placing orders, communicating with other health care [...] of active outpatient prescriptions dispensed from this [place] (local) and dispensed from another [place] or DoD facility (remote) as well as [...] Nurse Practitioner Signed: 11/30/2024 09:45 MISSY MALLORY [place] [facility] [place] [facility] Nov 30, 2024 09:06 AM PREVENTIVE MEDICINE NURSING NOTE: LOCAL TITLE: CLINICAL REMINDERS/NURSING STANDARD TITLE: PREVENTIVE MEDICINE NURSING NOTE DATE OF NOTE: NOV 30, 2024@09:06 ENTRY DATE: NOV 30, 2024@09:06:42 AUTHOR: HUANG CRUZ COSIGNER: URGENCY: STATUS: COMPLETED Suicide Screen: C-SSRS Screening Curtis Suicide Severity Rating Scale (C-SSRS) screener 1. [...] Not worried about housing near future The reports the following: Within the past 12 [...] due to responses to other questions. 5. [place] numb or detached from people, activities, or your surroundings? Response not required due to responses to other questions. 6. [place] guilty or unable to stop blaming yourself [...] Signed: 11/30/2024 09:12 HUANG CRUZ [facility]
--- OUTSIDE RECORDS SUMMARY | 2025-01-02 23:59 | XMS_ITS | Continuity of Care Document ---
Author Organization [facility] Sylvia leland Address [address] [place] [id number]- Care Team Providers Care Manager Delivery Name Role Phone Kelly RIGGS, Vini Primary Care Physician [phone] Encounter [facility] Date(s): 12/26/24 - 01/02/25 [facility] [address] [place] [address] Drive [address] [place], [place] [address] Attending Physician: Tl Martinez MD Referring Physician: Rui Kim MD Encounter Type: Office Visit Allergies, Adverse Reactions, Alerts Substance Criticality Severity Reaction Reaction Severity Status Dust Active Grass Active Pollen Active Immunizations Given and Recorded Vaccine Date Status Refusal Reason Typhoid Vaccine, Inactivated 06/15/07 Given Tet/Diphth/Acel, Pertussis (oldterm) 06/15/07 Give n Hepatitis A Vaccine (oldterm) 1 06/15/07 Given 1Admin Note: hep a #1 Medications acetaminophen 325 mg oral tablet 975 mg, By Mouth, Every 6 hours, PRN, Refills 0, Maintenance, Pain , Moderate, 12/14/24 11:22:00 AM EDT, Partial fill upon patient request if the prescription is for a schedule II opioid drug. Start Date: 12/14/24 Status: Ordered Repeat number: 1 Alcohol Pads See Instructions, # 200 each, Refills 5, Tot. Refills 5, Maintenance, use as directed for Type 1 Diabetes Mellitus, 12/14/24 11:59:00 AM EDT, Supply, 178, cm, 12/14/24 11:32:00 EDT, Height, 85.9, kg, 12/09/24 6:57:00 EDT, Dry Weight Start Date: 12/14/24 Stop Date: 06/12/25 Status: Ordered Quantity: 200.0 Unit: each Repeat number: 6 apixaban 5 mg oral tablet = 5 mg, By Mouth, 2 times a day, # 60 tablet, 0 Refills, Maintenance, 12/14/24 11:23:00 AM EDT, Tablet, [facility], Partial fill upon patient request if the prescription is for a schedule II opioid drug., 178, cm, 12/14/24 7:56:00 EDT, Height, 85.9, kg, 12/09/24 6:57:00 EDT, Dry Weight Start Date: 12/14/24 Stop Date: 01/13/25 Status: Ordered Quantity: 60.0 Unit: tablet Repeat number: 1 atorvastatin 40 mg oral tablet 1 tablet = 40 mg, By Mouth, Daily, # 30 tablet, 0 Refills, Maintenance, 12/14/24 11:20:00 AM EDT, Tablet, [facility], Partial fill upon patient request if the prescription is for a schedule II opioid drug., 178, cm, 12/14/24 7:56:00 EDT, Height, 85.9, kg, 12/09/24 6:57:00 EDT, Dry Weight Start Date: 12/14/24 Stop Date: 01/13/25 Status: Ordered Quantity: 30.0 Unit: tablet Repeat number: 1 clopidogrel 75 mg oral tablet 75 mg, By Mouth, Daily, # 30 tablet, Refills 0, Tot. Refills 0, Maintenance, 12/14/24 11:23:00 AM EDT, Route to Pharmacy Electronically, [facility], Partial fill upon patient request if the prescription is for a schedule II opioid drug., 178, cm, 12/14/24 7:56:00 EDT, Height, 85.9, kg,12/09/24 6:57:00 EDT, Dry Weight Start Date: 12/14/24 Stop Date: 01/13/25 Status: Ordered Quantity: 30.0 Unit: tablet Repeat number: 1 finasteride 5 mg oral tablet 1 tablet = 5 mg, By Mouth, Daily, # 30 tablet, 0 Refills, Maintenance, 12/14/24 11:21:00 AM EDT, Tablet, [facility], Partial fill upon patient request if the prescription is for a schedule II opioid drug., 178, cm, 12/14/24 7:56:00 EDT, Height, 85.9, kg, 12/09/24 6:57:00 EDT, Dry Weight Start Date: 12/14/24 Status: Ordered Quantity: 30.0 Unit: tablet Repeat number: 1 fluticasone 50 mcg/inh nasal spray 1 sprays = 50 mcg, Nares, Both, Daily in AM, # 16 Gm, 0 Refills, Maintenance, 12/14/24 11:21:00 AM EDT, Nasal [place], [facility], Partial fill upon patient request if the prescription is for a schedule II opioid drug., 1 sprays Nares, Both Daily in AM, 178, cm, 12/14/24 7:56:00 EDT, Height, 85.9, kg, 12/09/24 6:57:00 EDT, Dry Weight Start Date: 12/14/24 Status: Ordered Quantity: 16.0 Unit: g Repeat number: 1 Freestyle Lancets See Instructions, # 200 each, Refills 5, Tot. Refills 5, Maintenance, Check your blood glucose oncedaily in the morning, 12/14/24 11:59:00 AM EDT, Supply, 178, cm, 12/14/24 11:32:00 EDT, Height, 85.9, kg, 12/09/24 6:57:00 EDT, Dry Weight Start Date: 12/14/24 Stop Date: 06/12/25 Status: Ordered Quantity: 200.0 Unit: each Repeat number: 6 Freestyle Lite Monitor See Instructions, # 3 each, Refills 2, Tot. Refills 2, Maintenance, Check your blood glucose once daily in the morning, 12/14/24 11:59:00 AM EDT, Supply, 178, cm, 12/14/24 11:32:00 EDT, Height, 85.9, kg, 12/09/24 6:57:00 EDT, Dry Weight Start Date: 12/14/24 Stop Date: 09/10/25 Status: Ordered Quantity: 3.0 Unit: each Repeat number: 3 Freestyle Lite Test Strips See Instructions, # 200 each, Tot. Refills 5, Maintenance, Check your blood glucose once daily in the morning, 12/14/24 11:59:00 AM EDT, Supply, 178, cm, 12/14/24 11:32:00 EDT, Height, 85.9, kg, 12/09/24 6:57:00 EDT, Dry Weight Start Date: 12/14/24 Stop Date: 01/13/25 Status: Ordered Quantity: 200.0 Unit: each Repeat number: 6 furosemide 40 mg oral tablet 40 mg, 1, tablet, By Mouth, Daily, # 7 tablet, Refills 0, Tot. Refills 0, Maintenance, 12/14/24 11:24:00 AM EDT, Route to Pharmacy Electronically, [facility], Partial fill upon patient request if the prescription is for a schedule II opioid drug., 178, cm, 12/14/24 7:56:00 EDT, Height,85.9, kg, 12/09/24 6:57:00 EDT, Dry Weight Start Date: 12/14/24 Stop Date: 12/21/24 Status: Ordered Quantity: 7.0 Unit: tablet Repeat number: 1 gabapentin 100 mg oral capsule 100 mg, By Mouth, 3 times a day, # 42 tablet, Refills 0, Tot. Refills 0, Maintenance, 12/14/24 11:23:00 AM EDT, Route to Pharmacy Electronically, [facility], Partial fill upon patient request if the prescription is for a schedule II opioid drug., 178, cm, 12/14/24 7:56:00 EDT, Height, 85.9, kg, 12/09/24 6:57:00 EDT, Dry Weight Start Date: 12/14/24 Stop Date: 12/28/24 Status: Ordered Quantity: 42.0 Unit: tablet Repeat number: 1 metFORMIN 1000 mg oral tablet 1 tablet = 1,000 mg, By Mouth, 2 times a day, # 60 tablet, 0 Refills, Maintenance, 12/14/24 11:33:00AM EDT, Tablet, [facility], Partial fill upon patient request if the prescription is for a schedule II opioid drug., 178, cm, 12/14/24 11:32:00 EDT, Height, 85.9, kg, 12/09/24 6:57:00 EDT, Dry Weight Start Date: 12/14/24 Stop Date: 01/13/25 Status: Ordered Quantity: 60.0 Unit: tablet Repeat number: 1 metoprolol 25 mg oral tablet 12.5 mg, By Mouth, 2 times a day, # 30 tablet, Refills 0, Tot. Refills 0, Maintenance, 12/14/24 11:21:00 AM EDT, Route to Pharmacy Electronically, [facility], Partial fill upon patient request if the prescription is for a schedule II opioid drug., 178, cm, 12/14/24 7:56:00 EDT, Height,85.9, kg, 12/09/24 6:57:00 EDT, Dry Weight Start Date: 12/14/24 Stop Date: 01/13/25 Status: Ordered Quantity: 30.0 Unit: tablet Repeat number: 1 montelukast 10 mg oral tablet 10 mg, 1, tablet, By Mouth, Daily in PM, # 30 tablet, Refills 0, Tot. Refills 0, Maintenance, 12/14/24 11:22:00 AM EDT, Route to Pharmacy Electronically, [facility], Partial fill upon patient request if the prescription is for a schedule II opioid drug., 178, cm, 12/14/24 7:56:00 EDT, Height, 85.9, kg, 12/09/24 6:57:00 EDT, Dry Weight Start Date: 12/14/24 Status: Ordered Quantity: 30.0 Unit: tablet Repeat number: 1 Ozempic 8 mg/3 mL (2 mg dose) subcutaneous solution = 2 mg, Subcutaneous Injection, Every week, in the abdomen, thigh, or upper arm, # 3 mL, 0 Refills,Maintenance, 12/14/24 1:07:00 PM EDT, Solution, Partial fill upon patient request if the prescription is for a schedule II opioid drug. Start Date: 12/14/24 Status: Ordered Quantity: 3.0 Unit: mL Repeat number: 1 semaglutide 8 mg/3 mL (2 mg dose) subcutaneous solution = 2 mg, Subcutaneous Injection, Every week, in the abdomen, thigh, or upper arm, # 3 mL, 0 Refills,Maintenance, 12/14/24 1:06:00 PM EDT, Solution, Partial fill upon patient request if the prescription is for a schedule II opioid drug., 178, cm, 12/14/24 11:32:00 EDT, Height, 85.9, kg, 12/09/24 6:57:00 EDT, Dry Weight Start Date: 12/14/24 Status: Ordered Quantity: 3.0 Unit: mL Repeat number: 1 Wendie Topical Solution 475 mL, Topically, Every 12 hours, 0 Refills, Maintenance, Solution Start Date: 12/14/24 Status: Ordered Repeat number: 1 Cardiac surgery Outpatient Note * Patrick RIGGS, Niraj Mojica: PERFORM Event Display: Cardiac Surgery Note Office Authored Date: [id number] Patient: ??TOMEKA ROMO ? Age:??84 Years?Sex:??Male?:??1940?? Chief Complaint POST OP DWD History of Present Illness Mr. 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 His initial postoperative course was uneventful. Following his discharge home he developed persistent nauseaand vomiting associated with extreme fatigue. The amiodarone was discontinued 5 days ago he reportsthat he is feeling much better. The nausea and vomiting have resolved and he is taking a regular diet without difficulty. With the return of his appetite and increased oral intake, ??he has had a 2 pound weight gain he past several days. There has been no recent dyspnea. He has had mild chest discomfort Physical Exam Vitals & Measurements T:??97?F?? HR:??88??(Peripheral)?? RR:??15?? BP:??112/70?? SpO2:??99%?? HT:??178??cm?? WT:??82.0??kg?? BMI:??25.88? General: Alert. Pleasant ? HEENT: EOM full. Sclera non icteric ? Neck: Supple. No masses. No JVD ?Resp: Lungs are clear to auscultation. No??wheezing ? CV: Right radial pulse 2+ and regular.?? No murmur, rub, or gallop. ? Chest: Sternotomy incision well healed. No click ? Extrem: No edema.??The??saphenous vein??sites are well??healed.? Neuro: No focal??findings. ?? Assessment/Plan He is making excellent progress following the CABG and MAZE procedure.?? On exam he is euvolemic sowe will be discontinuing the Lasix. Patient Instructions Discontinue the Lasix. He plans to enroll in the Cardiac Rehab program. Follow-Up Appointments No qualifying data available He has an appointment to see the Vascular Surgery team tomorrow. He has been instructed to see us if there are any issues related to the surgical incisions. Total Time Spent 45 minutes Problem List/Past Medical History Ongoing No qualifying data Medications acetaminophen 325 mg oral tablet, 975 mg, By Mouth, Every 6 hours, PRN Alcohol Pads, See Instructions, 5 refills apixaban 5 mg oral tablet, 5 mg, By Mouth, 2 times a day atorvastatin 40 mg oral tablet, 40 mg= 1 tablet, By Mouth, Daily clopidogrel 75 mg oral tablet, 75 mg, By Mouth, Daily finasteride 5 mg oral tablet, 5 mg= 1 tablet, By Mouth, Daily fluticasone 50 mcg/inh nasal spray, 50 mcg= 1 sprays, Nares, Both, Daily in AM Freestyle Lancets, See Instructions, 5 refills Freestyle Lite Monitor, See Instructions, 2 refills Freestyle Lite Test Strips, See Instructions, 5 refills furosemide 40 mg oral tablet, 40 mg= 1 tablet, By Mouth, Daily gabapentin 100 mg oral capsule, 100 mg, By Mouth, 3 times a day metFORMIN 1000 mg oral tablet, 1000 mg= 1 tablet, By Mouth, 2 times a day metoprolol 25 mg oral tablet, 12.5 mg, By Mouth, 2 times a day montelukast 10 mg oral tablet, 10 mg= 1 tablet, By Mouth, Daily in PM Ozempic 8 mg/3 mL (2 mg dose) subcutaneous solution, 2 mg, Subcutaneous Injection, Every week semaglutide 8 mg/3 mL (2 mg dose) subcutaneous solution, 2 mg, Subcutaneous Injection, Every week Vashe Topical Solution, 475 mL, Topically, Every 12 hours Allergies Dust Grass Pollen Immunizations Vaccine Date Status Typhoid Vaccine, Inactivated 06/15/2007 Given Tet/Diphth/Acel, Pertussis (oldterm) 06/15/2007 Given Hepatitis A Vaccine (oldterm) 06/15/2007 Given Comments : hep a #1 Note * Virginia Lacey: PERFORM Event Display: Patient Education/Instruction Authored Date: [id number] Ambulatory Adult Visit Summary [facility] Card[facility] Surgery [facility] [address] [place] [address] Drive [address] [place] [address] Name: TOMEKA ROMO : 1940?? Visit: 12/26/2024 12:40?? Ambulatory Visit Instructions ?? Your Care Team Primary Care Provider Vini Mendoza MD? This Visit Provider Deidra RIGGS, Diomedes Boothe Vitals Signs Temperature: 97 DegF Height: 178 cm Pulse Rate: 88 bpm Weight: 82 kg Respiratory Rate:??15 br/min??Low Body Mass Index:??25.88 kg/m2??High Systolic Blood Pressure: 112 mm Hg Body surface area: 2.01 Diastolic Blood Pressure: 70 mm Hg ?? Oxygen Saturation: 99 % ?? Medications The list below reflects the information in our records and provided by you today along with any changes made during this visit. Please continue your medications until treatment is completed or stopped by your provider. If this is different from the information you have or there are other questions,please contact the prescribing provider. What How Much When Instructions Unchanged Acetaminophen (acetaminophen 325 mg oral tablet) 975 Milligram Oral Every 6 hours as needed for Pain , Moderate Unchanged apixaban (apixaban 5 mg oral tablet) 5 Milligram Oral Twice a day Duration: 30 Days Unchanged Atorvastatin (atorvastatin 40 mg oral tablet) 1 tab(s) Oral Daily Duration: 30 Days Unchanged Clopidogrel (clopidogrel 75 mg oral tablet) 75 Milligram Oral Daily Duration: 30 Days Unchanged Durable Medical Equipment (Alcohol Pads) See instructions Duration: 30 Days use as directed for Type 1 Diabetes Mellitus ?? Unchanged Durable Medical Equipment (Freestyle Lancets) See instructions Duration: 30 Days Check your blood glucose once daily in the morning ?? Unchanged Durable Medical Equipment (Freestyle Lite Monitor) See instructions Duration: 90 Days Check your blood glucose once daily in the morning ?? Unchanged Durable Medical Equipment (Freestyle Lite Test Strips) See instructions Duration: 30 Days Check your blood glucose once daily in the morning ?? Unchanged Emollients, Topical (Vashe Topical Solution) 475 Milliliter Topically Every 12 hours Unchanged Finasteride (finasteride 5 mg oral tablet) 1 tab(s) Oral Daily Unchanged Fluticasone Nasal (fluticasone 50 mcg/ inh nasal spray) 1 spray(s) Nares, Both Daily in the morning Unchanged Furosemide (furosemide 40 mg oral tablet) 1 tab(s) Oral Daily Duration: 7 Days Unchanged Gabapentin (gabapentin 100 mg oral capsule) 100 Milligram Oral 3 times a day Duration: 14 Days Unchanged Metformin (metFORMIN 1000 mg oral tablet) 1 tab(s) Oral Twice a day Duration: 30 Days Unchanged Metoprolol (metoprolol 25 mg oral tablet) 12.5 Milligram Oral Twice a day Duration: 30 Days Unchanged Montelukast (montelukast 10 mg oral tablet) 1 tab(s) Oral Daily in PM Unchanged semaglutide (Ozempic 8 mg/ 3 mL (2 mg dose) subcutaneous solution) 2 Milligram Subcutaneous Injection Every week in the abdomen, thigh, or upper arm ?? Unchanged semaglutide (semaglutide 8 mg/ 3 mL (2 mg dose) subcutaneous solution) 2 Milligram Subcutaneous Injection Every week in the abdomen, thigh, or upper arm ?? Medications and Immunizations Administered Medications Given During Visit No medications given during this visit.?? Allergies (NKA means No Known Allergies) Dust Grass Pollen Common Emergency Awareness Tips IS IT A STROKE? Act FAST and Check for these signs: FACE Does the face look uneven? ARM Does one arm drift down? SPEECH Does their speech sound strange? TIME Call at any sign of stroke ?? Heart Attack Signs Chest discomfort: Most heart attacks involve discomfort in the center of the chest and lasts more than a few minutes, or goes away and comes back. It can feel like uncomfortable pressure, squeezing, fullness or pain. Discomfort in upper body: Symptoms can include pain or discomfort in one or both arms, back, neck, jaw or stomach. Shortness of breath: With or without discomfort. Other signs: Breaking out in a cold sweat, nausea, or lightheaded. Remember, MINUTES DO MATTER. If you experience any of these heart attack warning signs, call to get immediate medical attention! ?? Smoking can increase your chances of developing chronic health problems and can cause harmful effects to other family members in your house. If you smoke, you are strongly encouraged to quit. Please call [facility] at [phone] or [phone] ([phone]) or log in to [email or web address] for referrals to smoking cessation programs. ?? The National Suicide Prevention Hotline is available 22/12 if you or someone you know needs to find a reason to keep living. By calling 5-360-397-Riskified (4824) you'll be connected to a skilled, trained counselor at a crisis center in your area. [facility] You can view and manage your care through the patient portal or by using a health care mariano of your choosing. [employer] is a website that allows you to securely view your medical information including your hospital discharge summary, office visit summaries, medications and follow-up visits. You can also request appointments, renew medications, and request access to your medical information using a health care mariano of your choosing, or just ask a question. You can enroll at [email or web address] or register during your next office visit. [facility], in keeping with [facility] guidance, no longer requires face masks for staff, patientsor visitors in most situations. Similiar to time spent indoors at other locations, there is the chance that you were exposed to repiratory viruses during your time with us (such as flu or COVID-19). If you develop symptoms concerning for a viral respiratory infection, please seek testing (and treatment if indicated) from your medical provider or home test kit. ?? Disclaimer: The information provided is of a general nature and is intended to be used in conjunction with the recommendations and advice of your health care practitioner. Every effort has been made to ensure that the information provided is accurate and complete at the time it is provided to you however, as your needs change, or, as new information becomes available, different or additional instructions may be required. ?? If you have questions, please consult with your primary care provider or pharmacist, as appropriate. This information is not intended to serve as substitution for assessment and evaluation by a qualified health care provider. If you do not have a primary care provider, you may find a [facility] provider by calling [facility] at [phone]. Patient Care team information Care Team Personnel Name: Vini Mendoza MD Position: Reference Physician Member Role: PCP Address: [address] [place] [address] Vini Mendoza MD [place], [place] [address] Telecom: [phone] Name: Jessika Dia RN Position: S RN Member Role: Primary Care Nurse Name: Robert Fernández RN Position: S RN Member Role: Primary Care Nurse Name: Kika Moore RN Position: S RN Member Role: Primary Care Nurse Care Team Related Persons Name: ROSETTE ROMO Name: PRINCE ROMO Name: TOMEKA ROMO Insurance Providers Guarantor name: Health Plan Information #: 1 Payer: [employer] MEDICARE ADV PPO Payer Identifier: Member Number: [id number] Group Number: [id number] Subscriber Identifier: [id number] Relationship to Subscriber: self Coverage Type: Medicare PPO Coverage Verification Date: Telecom: NA Address: Health Plan Information #: 2 Payer: FOR LIFE Payer Identifier: Member Number: [id number] Group Number: Subscriber Identifier: [id number] Relationship to Subscriber: self Coverage Type: For Life--Medicare Supplement Coverage Verification Date: Telecom: Address:
--- OUTSIDE RECORDS SUMMARY | 2025-01-05 05:00 | XMS_ITS ---
Author Organization Vini Mendoza MD Address [address] [place] [phone] Care Team Providers Care Pattern Shop Supervisor Name Role Phone Vini Mendoza Primary Care Provider Results Component Value Reference Range Notes Complete Blood Count Auto Di ff (Not yet reviewed by provider) Interpretation: Performing Lab:[facility], [address] [place] [phone] Notes/Report: White Blood Count 10.7 4.8-10.8 X10*3/uL Red Blood Count 3.14 4.60-5.80 X10*6/uL Hemoglobin 7.7 14.0-18.0 g/dl Hematocrit 25.5 42.0-52.0 % Mean Corpuscular Volume 81.2 80.0-98.0 fL Mean Corpuscular Hemoglobin 24.5 27.0-33.0 pg Mean Corpuscular HGB Conc 30.2 31.0-36.0 g/dl Red Cell Distribution Width 18.7 11.0-16.0 % Platelet Count 321 160-400 X10*3/uL Mean Platelet Volume 10.8 9.4-12.4 fL Neutrophils Percent Auto 61.5 45-73 % Imm Gran Pct Auto 0.6 0.0-0.4 % Lymphocytes Percent Auto 21.9 20-40 % Monocytes Percent Auto 8.5 2-11 % Eosinophils Percent Auto 6.8 0-4 % Basophils Percent Auto 0.7 0-2 % NRBC Pct Auto 0.0 0.0-0.2 /100WBC Neutrophils Absolute Auto 6.6 2.0-8.3 x10*3/u L Imm Gran Abs Auto 0.06 0.00-0.03 X10*3/uL Lymphocytes Absolute Auto 2.4 1.2-4.9 X10*3/u L Monocytes Absolute Auto 0.9 0.1-1.2 X10*3/uL Eosinophils Absolute Auto 0.7 0.0-0.4 X10*3/u L Basophils Absolute Auto 0.1 0.0-0.2 X10*3/uL NRBC Abs Auto 0.000 0.0-0.012 X10*3/uL REASON FOR VISIT CBC Encounters Encounter Location Date Provider Diagnosis Vini Mendoza MD [address] [place] [address] [address] [place], [place] [phone] 01/05/2025 Vini Mendoza Anemia D64.9 Assessments Encounter Date Diagnosis (ICD Code) Assessment Notes Treatment Notes Treatment Clinical Notes Section Notes 01/05/2025 Anemia (ICD-10 - D64.9) Plan Of Treatment Pending Test Test Name Order Date Complete Blood Count Auto Diff Next Appt Details Provider Name:Vini herzog, 06/29/2025 07:45:00 AM, [address] [place] [address], [address], [place], [place], [phone], Provider Name:Vini herzog, 07/06/2025 09:30:00 AM, [address] [place] [address], [address], [place], [phone], Progress Notes * Deacon ROMODOB:[birth year] (84 yo M)Acc No.[id number]:01/05/2025 Progress Note Patient: Deacon IRVIN Provider: Galina Mendoza MD :1940 A ge:84 Y S ex:Male Date:01/05/2025 Address:[address] [place] [address], [id number] Subjective: * Chief Complaints: * 1 . CBC. * Medical History: Objective: * Vitals: Assessment: * Assessment: 1. A nemia - D64.9 (Primary) Plan: * Treatment: * Procedure Codes: 3 6415 VENIPUNCT, ROUTINE* * * The named appointment provid er may or may not be the originator of this progress note, and it is not deemed complete until electronically signed by the appointment provider. Sign off status: Pending * Provider: Galina Mendoza MD Date: 0 01/05/2025 Generated for Meg brenner/Min/Jordenitting on: 01/05/2025 11:34 AM EDT
[2025-01-05 10:55] LABS: MANUAL DIFF FLAG NO
[2025-01-05 11:04] LABS: Hematocrit 25.5 % (42.0-52.0); Hemoglobin 7.7 g/dl (14.0-18.0); Imm Gran Abs Auto 0.06 X10*3/uL (0.00-0.03); Imm Gran Pct Auto 0.6 % (0.0-0.4); Lymphocytes Absolute Auto 2.4 X10*3/uL (1.2-4.9); Mean Corpuscular HGB Conc 30.2 g/dl (31.0-36.0); Mean Corpuscular Hemoglobin 24.5 pg (27.0-33.0); Mean Corpuscular Volume 81.2 fL (80.0-98.0); NRBC Abs Auto 0.000 X10*3/uL (0.0-0.012); NRBC Pct Auto 0.0 /100WBC (0.0-0.2); Platelet Count 321 X10*3/uL (160-400); Red Blood Count 3.14 X10*6/uL (4.60-5.80); White Blood Count 10.7 X10*3/uL (4.8-10.8)
--- OUTSIDE RECORDS SUMMARY | 2025-01-05 11:35 | XMS_ITS | Clinical Summary ---
Author Organization [facility] Address [address] [place] [address] Phone Care Team Providers Care Market Development Analyst Name Role Phone Pcp, Unknown Primary Care Provider Unavailabl e Encounters Date Type Department Care Team Description 12/21/2024 Orders Only [facility] [address] [facility] [address] [place] [address] ProviderLupe MD from Last 3 Months Social [...] Final Result from Last 3 Months Insurance [facility] MEDICARE REPLACEMENT [facility] MEDICARE SUPPLEMENT [facility] Address: [facility] [address] [place] [address] [facility] RE[facility] FOR LIFE MEDICARE SUPPLEMENT MEDICARE REPLACEMENT FOR LIFE MEDICARE SUPPLEMENT [facility] Address: [address] [address] MEDICARE REPLACEMENT FOR LIFE MEDICARE SUPPLEMENT [facility] Address: [address] [address] [facility] [place] FOR LIFE MEDICARE SUPPLEMENT [employer] MEDICARE REPLACEMENT FOR LIFE MEDICARE SUPPLEMENT [facility] Address: [facility] [address] [place] [address] Care Teams Market Development Analyst Relationship Specialty Start Date End Date Pcp, Unknown PCP - General 12/21/24 Additional Source Comments The information contained in this document represents components of the legal health record. It is not the complete legal health record.[facility]
== END 2025-01-05 10:53 | disposition home or self-care (01) ==
LOC: HO.LNP 10:52
PROVIDERS: Visit Provider Internal Medicine
DX: D64.9 Anemia, unspecified (principal)
CPT/HCPCS: 85025

== ENCOUNTER 2025-01-06 07:47 | Inpatient (IN) | payer MEDICARE, OTHER, SELFPAY ==
--- OUTSIDE RECORDS SUMMARY | 2024-01-26 06:00 | XMS_ITS ---
Author Organization [facility] Address [address] [place] [address] [place] [address] Care Team Providers Care Culinary Internship Name Role Phone Vini Mendoza MD Primary Care Provider Jennifer Justin Jr, Cedrick Blank [phone] REASON FOR VISIT screening Encounters Encounter Location Date Provider Diagnosis [facility] [place] [address] [place] [phone] 01/26/2024 Cedrick Justin Jr Colon cancer screening [...] Provider Name:Cedrick licona Jr, 01/09/2025 11:20:00 AM, [address] [place] [address], [address], [address], Provider Name:Cedrick licona Jr, 05/15/2025 09:20:00 AM, [address] [place] [address], [address], [address], Progress Notes * TOMEKA OLIVIERDOB:[birth year] (84 yo M)Acc No.[id number]:01/26/2024 COLON WITH MAC Patient: TOMEKA IRVIN Provider: Jerica Justin MD :1940 A ge:83 Y S ex:Male Date:01/26/2024 Address:[address] [place] [address], [place] [phone] Pcp:Vini Mendoza MD Subjective: * Chief Complaints: * 1 . Screening. * Medical History: Objective: * Vitals: Assessment: * Assessment: 1. C olon cancer screening - Z12.11 (Primary) 2 . F amily history of colon cancer - Z80.0 3 . C olon polyps - K63.5 Plan: * Treatment: * Procedure Codes: 4 5385 LESION REMOVAL COLONOSCOPY, 30484 LESION REMOVE COLONOSCOPY, Modifiers: 59 , 68101 COLONOSCOPY AND BIOPSY, Modifiers: 59 , 0529F INTRVL 3+YRS PTS CLNSCP DOCD * * The named appointment provid er may or may not be the originator of this progress note, and it is not deemed complete until electronically signed by the appointment provider. Sign off status: Pending * Provider: Jerica Justin MD Date: 0 01/26/2024 Generated for Meg brenner/Min/Donsmitting on: 0 01/06/2025 08:20 AM EDT
--- OUTSIDE RECORDS SUMMARY | 2025-01-05 05:00 | XMS_ITS ---
Author Organization Vini Mendoza MD Address [address] [place] [phone] Care Team Providers Care Manager Mall Name Role Phone Vini Mendoza Primary Care Provider [phone] Results Component Value Reference Range Notes Complete Blood Count Auto Di ff Reviewed date:01/05/2025 03:11:21 PM Interpretation: Performing Lab:[facility], [address] [place] [phone] Notes/Report: White Blood Count 10.7 4.8-10.8 X10*3/uL [...] Location Date Provider Diagnosis Vini Mendoza MD [address] [place] [address] [place] [phone] 01/05/2025 Vini Mendoza Anemia D64.9 Assessments Encounter Date Diagnosis (ICD Code) Assessment Notes Treatment Notes Treatment Clinical Notes Section Notes 01/05/2025 Anemia (ICD-10 - D64.9) Plan Of Treatment Next Appt Details Provider Name:Vini herzog, 06/29/2025 07:45:00 AM, [address] [place] [address], [address], [phone], Provider Name:Vini herzog, 07/06/2025 09:30:00 AM, [address] [place] [address], [address] [place], [phone], Progress Notes * Deacon ROMODOB:[birth year] (84 yo M)Acc No.[id number]:01/05/2025 Progress Note Patient: Deacon IRVIN Provider: Galina Mendoza MD :1940 A ge:84 Y S ex:Male Date:01/05/2025 Address:[address] [place] [address] [id number] Subjective: * Chief Complaints: * 1 . [...] Pending * Provider: Galina Mendoza MD Date: 01/05/2025 Generated for Meg brenner/Min/Donsmitting on: 01/06/2025 08:20 AM EDT
[2025-01-06] VITALS (8 sets, daily range): BP systolic 101–135; BP diastolic 49–69; PULSE 78–91; RESP 13–22; TEMP 36–36.7; O2SAT 97–100; BMI 25.8
--- NOTE | ~2025-01-06 | XR_ITS ---
CLINICAL HISTORY: pleual effusion 1 view chest x-ray Comparison: None provided Findings: Sternotomy wires are evident. Lungs are mildly hypoinflated. Cardiac silhouette is at the upper limits of normal for size. Consolidation of the left lung base with small to moderate left pleural effusion. No infiltrates are seen within the right lung. IMPRESSION: Left basilar consolidation with small to moderate left pleural effusion. This document has been electronically signed by: Robert Pappas MD on 01/07/2025 11:46:27
--- NOTE | ~2025-01-06 | US_ITS ---
EXAMINATION: US COMPLETE ABDOMEN WITH LIVER ELASTOGRAPHY CLINICAL INFORMATION: Elevated LFTs COMPARISON: Ultrasound abdomen 01/02/2023 TECHNIQUE: Real-time imaging of the abdominal viscera. Noninvasive ultrasound liver fibrosis assessment is performed using [employer] point quantification shear wave elastography (pSWE) with a C5-2 MHz transducer. Multiple elastography samples are obtained. FINDINGS: PANCREAS: The visualized pancreatic head and body are normal in appearance. The remainder of the pancreas is obscured from visualization by the overlying bowel gas. ABDOMINAL AORTA: No aortic aneurysm is seen. INFERIOR VENA CAVA: Visualized portions are normal. LIVER: The liver demonstrates normal size, contour and increased echogenicity. No focal lesion or intrahepatic biliary duct dilatation. The right lobe measures 15.3 cm in length. The left lobe measures 11.0 cm in length. Portal flow is hepatopedal Shear wave liver elastography median stiffness is 1.28 m/s (reference: normal median stiffness is 1.3 m/s or less). IQR/median stiffness to assess sampling precision is 0.09 (reference: good quality data set is IQR/median stiffness of 0.15 or less). GALLBLADDER: The gallbladder is physiologically distended without evidence of stones, sludge, polyps, wall thickening or pericholecystic fluid. Gallbladder wall thickness is 0.23 cm COMMON BILE DUCT: Not imaged. Was normal on the previous ultrasound exam. RIGHT KIDNEY: No hydronephrosis. There is anechoic partially exophytic cyst mid pole measuring 0.0 x 0.75 x 0.90 cm.. The kidney measures 11.1 cm in maximum dimension. LEFT KIDNEY: No hydronephrosis. No renal calculi or focal parenchymal lesions. The kidney measures 11.6 cm in maximum dimension. SPLEEN: Unremarkable. The spleen measures 12.7 cm in maximum dimension. FREE FLUID: Suspect small left pleural effusion US/US abdomen comp w elastography IMPRESSION: 1. Echogenic liver. Similar findings were seen on previous ultrasound 01/02/2023 2. Liver elastography: Median liver stiffness measures 1.28 suggestive of high probability 3. Small partially exophytic cyst mid pole right kidney. Previously visualized echogenic stones in kidneys is not seen at this time. REFERENCE: Society of Radiologists in Ultrasound Liver Stiffness Thresholds (2020): LIVER STIFFNESS THRESHOLDS: *Liver Stiffness equal or less than 1.3 m/s: High probability of being normal. *Liver Stiffness less than 1.7 m/s: In the absence of other known clinical signs, rules out compensated advanced chronic liver disease. *Liver Stiffness 1.7-2.1 m/s: Suggestive of compensated advanced chronic liver disease but need further test for confirmation. *Liver Stiffness over 2.1 m/s: Rules in compensated advanced chronic liver disease. *Liver Stiffness over 2.4 m/s: Suggestive of clinically significant portal hypertension. QUALITY OF DATA SET: *IQR/Median value equal or less than 0.15 implies a quality data set. *IQR/Median value over 0.15 implies a poor quality data set. SIGNIFICANT CHANGE FROM PRIOR EXAM: Significant change if liver stiffness measurement is 10% or greater from prior exam. OTHER CONSIDERATIONS: The stage of liver fibrosis may be overestimated in the setting of acute hepatitis, liver inflammation, elevated liver function tests, hepatic vascular congestion, obstructive cholestasis, non-fasting state, and infiltrative diseases such as amyloidosis and lymphoma. In some patients with NAFLD, the liver stiffness thresholds for compensated advanced chronic liver disease may be lower. In causes other than viral hepatitis and NAFLD, liver stiffness thresholds are not well established. Electronically signed by: Checo Bronson MD 01/09/2025 07:13 AM EDT
--- NOTE | 2025-01-06 08:00 | ED_ITS ---
HPI - Weakness General Chief complaint: Weakness Stated complaint: Very Weak Triple Bypass Pt Time Seen by Provider: 01/06/25 08:45 Source: patient Mode of arrival: ambulatory Limitations: no limitations History of Present Illness ED Provider: Dr. 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 Patient has followed up with his PCP Dr. Mendoza and has been referred to GI. Patient states that over the last 2 days his weakness has become very severe in his having difficulty walking. He states that walking from triage to the emergency department bed he was extremely tired and fatigued. He denied fever, chills, chest pain, shortness of breath at rest, dyspnea on exertion, nausea, vomiting, diarrhea, abdominal pain. Patient takes aspirin 81 mg daily. He is not on blood thinners. Denies taking [id number] NSAIDs Related Data Home Medications ?Medication ?Instructions ?Recorded ?Confirmed aspirin 81 mg tablet,delayed 81 mg PO DAILY 01/12/23 0 01/06/25 release (Adult Low Dose Aspirin) fluticasone propionate 50 1 spray intranasal BID 01/1201/06/25 mcg/actuation nasal spray,suspension metformin 1,000 mg tablet 1,000 mg PO BID 01/12/2301/23 montelukast 10 mg tablet 10 mg PO DAILY 01/12/2301/23 acetaminophen 325 mg tablet 325 mg PO QID PRN Pain 01/2301/06/25 atorvastatin 40 mg tablet 40 mg PO DAILY 01/06/2501/23 emollient 1 ea topical Q12H 01/06/25 0 01/06/25 gabapentin 100 mg capsule 100 mg PO TID PRN Pain 01/0601/06/25 metoprolol tartrate 25 mg tablet 12.5 mg PO BID 01/06/25 omeprazole 20 mg capsule,delayed 20 mg PO BID@0630,163 0 01/06/25 01/06/25 release semaglutide 2 mg/dose (8 mg/3 mL) 2 mg subcut SA 01/0601/06/25 subcutaneous pen injector (Ozempic) Previous Rx's ?Medication ?Instructions ?Recorded finasteride 5 mg tablet (Proscar) 5 mg PO DAILY 90 day s #90 tabs 08/04/24 Allergies Allergy/AdvReac Type Severity Reaction Status Date / Time No Known Allergies (No Known Allergy Verified 01/06/25 08:02 Allergies*) Review of Systems 2 Review of Systems: Yes all other systems are reviewed and are negative [facility] Past Medical History [facility] Narrative: Social history: Patient denies tobacco, alcohol and drug use. Medical History CAD (coronary artery disease) Elevated cholesterol Seasonal allergies Diabetes Basal cell carcinoma (BCC) Surgical History H/O maze procedure Failed CABG (coronary artery bypass graft) History of transurethral resection of bladder tumor (TURBT) History of biopsy of bladder Hx of colonoscopy Hx of cystoscopy Family History Family History Mother No problems noted. Father No problems noted. Social History Social History Household Members: Significant Other Housing: House Are you a primary careers adviser to a significant other at home: No Do you presently have visiting nurse or other home services: No Alcohol intake: current Alcohol intake frequency: holidays/special occasions only Patient Tobacco Use Status: Former Tobacco user Advance Directives Date on File: 01/07/25 service: Yes Physical Exam 2 Vital Signs: Vital Signs: Last Vital Signs Temp 98.7 F 01/09/25 15:03 Pulse 83 01/09/25 15:03 Resp 18 01/09/25 15:03 BP 126/76 01/09/25 15:03 Pulse Ox 94 01/09/25 15:03 O2 Del Method Room Air 01/09/25 15:03 BMI result Body Mass Index 25.8 Vital signs were normal Exam: General: Awake, alert in no distress Head: Normocephalic, atraumatic EENT: PERRL, Lids normal, sclera normal, conjunctiva normal, nose normal , ears normal, throat without erythema or exudates Neck: Supple, no adenopathy Lung: breath sounds symmetric, no wheezing, rales or rhonchi Chest: symmetric movement, nontender Heart: regular rate and rhythm, normal S1, S2 no murmurs or rubs Abdomen: soft, non-tender, nondistended, normal bowel sounds Rectal: Normal rectal tone, stool was brown but strongly Hemoccult positive Back: no vertebral tenderness, no CVAT Extremities: no deformities, moves all extremities symmetrically Neuro: Awake, alert, oriented, normal speech, cranial nerves intact, moves all extremities symmetrically Psych: Pleasant, cooperative Course Course Course Narrative: 84 yo male with PMH of BPH, HLD, CABG x 3V at [facility] with Juan on 12/09 DC home 12/14 but had blood transfusion during [facility]. He comes in with c/o dark stools he is on baby aspirin but his stool have now been brown for 3 days. He feels weak and tired. He has no CP/SOB. He just feels weak. Prior to surgery he had anemia he has colonoscopy with Nhan about a year ago. His recent hemoglobin yesterday was 7.7 on 01/05/25 last week was guiac + in office. He states we was referred here by Kelly and they want him admitted for UGIB and Dr. Guo is aware. He was just cleared this past week by his residential mental health worker. At this time labs, EKG, type and screen. this is a RAPID medical screening exam the rest of the history and physical exam is to be done by the main provider. QIAN 01/06/25 804am Medications Administered Generic Name Dose Route Start Last Admin Trade Name Lesley PRN Reason Stop Dose Admin Atorvastatin Calcium 40 mg 01/07/25 09:00 01/09/25 08:40 Atorvastatin Calcium 40 Mg Tablet PO 40 mg DAILY LEOBRADO Administration Finasteride 5 mg 01/07/25 09:00 01/09/25 08:41 Finasteride 5 Mg Tablet PO 5 mg DAILY LEOBARDO Administration Fluticasone Propionate 1 spray 01/06/25 21:00 01/09/25 08:42 Fluticasone Propionate Nasal 16 Gm [place] NOSTRIL-B Not Given BID [facility] Insulin Human Lispro 0 unit 01/06/25 11:30 01/09/25 11:58 Insulin Lispro 100 Unit/Ml 3 Ml Vial SUBCUT Not Given QIDACHS [facility] Protocol Metoprolol Tartrate 12.5 mg 01/06/25 21:00 01/09/25 08:40 Metoprolol Tartrate 12.5 Mg Halftab PO 12.5 mg BID LEOBARDO Administration Protocol Montelukast Sodium 10 mg 01/07/25 09:00 01/09/25 08:41 Montelukast Sodium 10 Mg Tablet PO 10 mg DAILY LEOBARDO Administration Sodium Chloride 3 ml 01/06/25 16:00 01/09/25 08:43 0.9 % Sodium Chloride Flush 3 Ml Syringe IVFLUSH 3 ml QSHIFT LEOBARDO Administration Discontinued Medications Generic Name Dose Route Start Last Admin Trade Name Freq PRN Reason Stop Dose Admin Aspirin 81 mg 01/07/25 09:00 01/08/25 09:23 Aspirin Enteric Coated 81 Mg Tablet.Dr HARRIS 01/09/25 00:05 81 mg DAILY LEOBARDO Administration Pantoprazole Sodium 40 mg 01/06/25 08:05 01/06/25 09:26 Pantoprazole Sodium 40 Mg/10 Ml Vial IVPUSH 01/06/25 08:06 40 mg ONCE ONE Administration Pantoprazole Sodium 40 mg 01/07/25 06:30 01/09/25 05:36 Pantoprazole Sodium 40 Mg/10 Ml Vial IVPUSH 40 mg BID@0630,1630 LEOBARDO Administration Medical Decision Making Medical Decision Making MDM Narrative: 84-year-old male with a history of anemia, atrial fibrillation, BPH, 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 Patient has followed up with his PCP Dr. Mendoza and has been referred to GI. Patient states that over the last 2 days his weakness has become very severe in his having difficulty walking. He states that walking from triage to the emergency department bed he was extremely tired and fatigued. He denied fever, chills, chest pain, shortness of breath at rest, dyspnea on exertion, nausea, vomiting, diarrhea, abdominal pain.Patient takes aspirin 81 mg daily. He is not on blood thinners. Denies taking xvrq-xii-hlebzgi NSAIDs. Vital signs were normal. Abdominal exam revealed no tenderness. Rectal exam revealed brown stool which was strongly Hemoccult positive Differential diagnosis: ?Includes but is not limited to upper GI bleed, anemia, electrolyte abnormalities Course: 10:32 My independent interpretation patient's laboratory evaluation is as follows: Microcytic anemia with an H&H of 7.6 and 24.9 with an MCV of 79. Elevated glucose 138. Elevated AST, ALT and alk-phos of 62, 133 and 190. The patient's baseline H&H from 06/24/2024 11.2 and 35 with decreased H&H on 12/22/2024 of 9.2 and 30.2. Get in his dark stools in his Hemoccult positive stool I believe he may have an upper GI bleed. The patient is symptomatic to so I do believe that he has had a significant drop in his H&H over the last several days therefore I ordered 1 unit of packed red blood cells. Patient was also ordered to get Protonix 40 mg IV. Patient will need to be admitted for further workup. Who will discuss admission with the covering GI doctor and the covering hospitalist. 11:08 I did discuss the patient's presentation over tiger text with the covering mill tender second operator, Dr. Leo Guo. He recommended putting the patient on clear liquids he will evaluate the patient today. He agreed with a PPI and blood transfusions. I also discuss the patient's presentation over tiger text with the covering hospitalist, physician food service assistant Cassi Osorio and the patient will be admitted for further management. Admission/Observation Consideration of admission/observation: Escalation of care including admission/observation considered (Yes) Consult Healthcare Provider Management of the patient was discussed with: Hospitalist (Hospitalist, physician food service assistant Cassi Osorio) and Pediatric Clinical Dietician (Optical Dispenser, Dr. Guo) Lab Data MDM Lab Attestation statement: I reviewed the patient's lab results. 01/09/25 07:18 01/08/25 07:05 Labs: Lab Results 01/06/25 01/06/25 Range/Units 08:17 09:19 WBC 8.5 (4.8-10.8) X10*3/uL RBC 3.13 L (4.60-5.80) X10*6/uL Hgb 7.6 L (14.0-18.0) g/dl Hct 24.9 L (42.0-52.0) % MCV 79.6 L (80.0-98.0) fL MCH 24.3 L (27.0-33.0) pg MCHC 30.5 L (31.0-36.0) g/dl RDW 18.6 H (11.0-16.0) % Plt Count 299 (160-400) X10*3/uL MPV 10.7 (9.4-12.4) fL Immature Gran % (Auto) 0.5 H (0.0-0.4) % Neut % (Auto) 64.3 (45-73) % Lymph % (Auto) 19.4 L (20-40) % [place] % (Auto) 8.4 (2-11) % Eos % (Auto) 6.7 H (0-4) % Baso % (Auto) 0.7 (0-2) % Lymph # (Auto) 1.6 (1.2-4.9) X10*3/uL [place] # (Auto) 0.7 (0.1-1.2) X10*3/uL Eos # (Auto) 0.6 H (0.0-0.4) X10*3/uL Baso # (Auto) 0.1 (0.0-0.2) X10*3/uL Abs Immat Gran (auto) 0.04 H (0.00-0.03) X10*3/uL Absolute Neuts (auto) 5.4 (2.0-8.3) x10*3/uL Absolute Nucleated RBC 0.000 (0.0-0.012) X10*3/uL Nucleated RBC % (auto) 0.0 (0.0-0.2) /100WBC PT 14.1 H (10.9-12.4) SEC INR 1.2 H (0.9-1.1) Sodium 141 (135-145) mmol/L Potassium 4.6 (3.3-5.1) mmol/L Chloride 106 (96-108) mmol/L Carbon Dioxide 22 (22-29) mmol/L Anion Gap 18 (12-20) BUN 21 H (9-16) mg/dL Creatinine 0.92 (0.5-1.4) mg/dL Estim Creat Clear Calc 62.8 Estimated GFR > 60 Random Glucose 138 H (60-115) mg/dL Calcium 8.7 (8.4-10.2) mg/dL Magnesium 1.8 (1.6-2.6) mg/dL Total Bilirubin 1.3 H (0.0-1.0) mg/dL Direct Bilirubin 0.5 (0.0-0.5) mg/dL AST 62 H (5-37) U/L ALT 133 H (0-40) U/L Alkaline Phosphatase 190 H (39-117) U/L Total Protein 6.2 L (6.5-8.0) g/dL Albumin 3.7 (3.5-5.0) g/dL Stool Occult Blood POSITIVE (NEGATIVE) Blood Type A Positive Antibody Screen NEGATIVE Crossmatch See Detail Independent Historian Clinical information obtained from an independent historian. History obtained from or confirmed by: Other (Significant other) Critical Care Time Critical Care Time Critical Care Time: Yes Total Critical Care Time: 35 Attestation: Critical Care: The patient was critically ill with a high probability of imminent or life threatening deterioration. I spent greater than 30 minutes of discontinuous time evaluating the patient,delivering critical care at the bedside, discussing and evaluating pertinent data with consultants. Critical care time does not include time spent performing separately billable procedures or teaching. Total time spent performing critical care was 35 minutes. Discharge Plan Discharge Clinical Impression: GI bleed, Acute blood loss anemia, Weakness Patient Disposition: Admitted As Inpatient Interventions: Admission Worksheet (ED) Last Done: 01/07/25 13:55 Discharge Date/Time: 01/07/25 15:01
--- NOTE | 2025-01-06 08:04 | ECG_ITS ---
Test Reason : WEAKNESS Blood Pressure : */* mmHG Vent. Rate : 80 BPM Atrial Rate : 80 BPM P-R Int : 234 ms QRS Dur : 88 ms QT Int : 400 ms P-R-T Axes : 36 0 91 degrees QTcB Int : 461 ms Sinus rhythm with 1st degree A-V block with occasional Premature ventricular complexes Nonspecific T wave abnormality Abnormal ECG No previous ECGs available Referred By: Danyelle Pabon Electronically Signed By: THEO MOSS
--- OUTSIDE RECORDS SUMMARY | 2025-01-06 08:21 | XMS_ITS | Clinical Summary ---
Author Organization [facility] Address [address] [place] [address] Phone Care Team Providers Care Transportation Technician Name Role Phone Pcp, Unknown Primary Care Provider Unavailabl e Encounters Date Type Department Care Team Description 12/21/2024 Orders Only [facility] [address] [facility] [address], [address] [place] [address] ProviderLupe MD from Last 3 Months Social [...] Final Result from Last 3 Months Insurance [facility] MEDICARE REPLACEMENT [facility] MEDICARE SUPPLEMENT [facility] Address: [facility] [address] [place] [address] [facility] MEDICARE REPLACEMENT FOR LIFE MEDICARE SUPPLEMENT MEDICARE REPLACEMENT FOR LIFE MEDICARE SUPPLEMENT [facility] Address: [address] [address] MEDICARE REPLACEMENT FOR LIFE MEDICARE SUPPLEMENT [facility] Address: [address] [address] [facility] FOR LIFE MEDICARE SUPPLEMENT [employer] MEDICARE REPLACEMENT FOR LIFE MEDICARE SUPPLEMENT [facility] Address: [facility] [address] [place] [address] Care Teams Transportation Technician Relationship Specialty Start Date End Date Pcp, Unknown PCP - General 12/21/24 Additional Source Comments The information contained in this document represents components of the legal health record. It is not the complete legal health record.[facility]
[2025-01-06 08:36] LABS: MANUAL DIFF FLAG NO
[2025-01-06 08:50] LABS: INTERNATIONAL NORM RATIO 1.2 (0.9-1.1); Prothrombin Time 14.1 SEC (10.9-12.4)
[2025-01-06 09:00] LABS: Alanine Aminotransferase 133 U/L (0-40); Albumin Level 3.7 g/dL (3.5-5.0); Alkaline Phosphatase 190 U/L (39-117); Anion Gap 18 (12-20); Aspartate Amino Transferase 62 U/L (5-37); Blood Urea Nitrogen 21 mg/dL (9-16); Calcium 8.7 mg/dL (8.4-10.2); Carbon Dioxide 22 mmol/L (22-29); Chloride 106 mmol/L (96-108); Creatinine Clr Calc Pharmacy 62.8; Estimated Glomerular Filt Rate > 60; Magnesium 1.8 mg/dL (1.6-2.6); Potassium 4.6 mmol/L (3.3-5.1); Sodium 141 mmol/L (135-145); Total Protein 6.2 g/dL (6.5-8.0)
[2025-01-06 09:03] LABS: Hematocrit 24.9 % (42.0-52.0); Hemoglobin 7.6 g/dl (14.0-18.0); Imm Gran Abs Auto 0.04 X10*3/uL (0.00-0.03); Imm Gran Pct Auto 0.5 % (0.0-0.4); Lymphocytes Absolute Auto 1.6 X10*3/uL (1.2-4.9); Mean Corpuscular HGB Conc 30.5 g/dl (31.0-36.0); Mean Corpuscular Hemoglobin 24.3 pg (27.0-33.0); Mean Corpuscular Volume 79.6 fL (80.0-98.0); NRBC Abs Auto 0.000 X10*3/uL (0.0-0.012); NRBC Pct Auto 0.0 /100WBC (0.0-0.2); Platelet Count 299 X10*3/uL (160-400); Red Blood Count 3.13 X10*6/uL (4.60-5.80); White Blood Count 8.5 X10*3/uL (4.8-10.8)
--- NOTE | 2025-01-06 09:41 | PC.NURSE ---
Pt to ED 8 from triage, reports overall weakness and low blood levels. Pt also reports dark stool. A/O x 3, denies pain or SOB at this time. MD at bedside, occult stool obtained and sent. Pt placed on monitor, labs pending. IV's placed to right wrist and left upper arm.
[2025-01-06 09:44] LABS: OBS Int Ctl Valid YES; OBS1 POSITIVE (NEGATIVE)
--- NOTE | 2025-01-06 11:11 | ECG_ITS ---
Test Reason : WEAKNESS Blood Pressure : */* mmHG Vent. Rate : 87 BPM Atrial Rate : 87 BPM P-R Int : 256 ms QRS Dur : 86 ms QT Int : 416 ms P-R-T Axes : 82 -27 80 degrees QTcB Int : 500 ms Sinus rhythm with marked sinus arrhythmia with 1st degree A-V block with frequent Premature ventricular complexes Nonspecific T wave abnormality Prolonged QT Abnormal ECG When compared with ECG of 06-Jan-2025 08:05, No significant change was found Referred By: Jet Moore Electronically Signed By: THEO MOSS
--- NOTE | 2025-01-06 11:20 | PM.IMHP ---
History of Present Illness Date of Service: 01/06/25 Attending physician on admission: Krishna Lemon Chief Complaint: weakness This is an 84-year-old male who underwent triple bypass at [facility] on December 09 who presents to the emergency department with generalized weakness. Ten days after his surgery he developed dark stools and his Eliquis and Plavix were discontinued and he was started on baby aspirin. Over the past 4-5 days he has had generalized weakness. His PCP has been following his H/H which has been lower than previous but has remained stable. December 22 his H/H was 9.2/30.2, December 29 it dropped to 7.8/26.7. Over the past 2 days he states he had severe weakness and fatigue and had difficulty even ambulating into the emergency department due to severe fatigue. He denies dizziness, shortness of breath, chest pain. In the emergency department his H/H was 7.6/24.9, similar to yesterday, stool was brown but Hemoccult positive. Patient denies use of alcohol or any other NSAIDs. Patient will be admitted for management of symptomatic anemia Review of Systems Review of Systems: Yes all other systems are reviewed and are negative Constitutional: Constitutional: Denies chills and Denies fever(s) Cardiovascular: Cardiovascular: Denies dyspnea Respiratory: Respiratory: Denies dyspnea Gastrointestinal: Gastrointestinal: Denies abdominal pain and Denies vomiting FOR[facility] Medical History (Updated 01/06/25 @ 11:34 by ERROL Gaines) CAD (coronary artery disease) Elevated cholesterol Seasonal allergies Diabetes Basal cell carcinoma (BCC) Family History Mother No problems noted. Father No problems noted. Surgical History (Updated 01/06/25 @ 11:34 by ERROL Gaines) H/O maze procedure Failed CABG (coronary artery bypass graft) History of transurethral resection of bladder tumor (TURBT) History of biopsy of bladder Hx of colonoscopy Hx of cystoscopy Social History Household Members: None Housing: House Are you a primary acute care occupational therapist to a significant other at home: No Do you presently have visiting nurse or other home services: No Alcohol intake: current Alcohol intake frequency: holidays/special occasions only Patient Tobacco Use Status: Former Tobacco user Smoked in Last 30 Days: No Use of substances other than those prescribed or required for medical reasons: No Advance Directives: Yes Advance Directives Information Provided: Yes Advance Directives on File: No Meds Allergies Allergy/AdvReac Type Severity Reaction Status Date / Time No Known Allergies (No Known Allergy Verified 01/06/25 08:02 Allergies*) Active Medications: Current Medications Acetaminophen (Acetaminophen 325 Mg Tablet) 650 mg PO Q6H PRN PRN Reason: Pain, Mild 1-3,fever,headache Calcium Carbonate (Calcium Carbonate 750 Mg Tab.Chew) 750 mg PO Q4H PRN PRN Reason: Heartburn Magnesium Hydroxide (Milk Of Magnesia 30 Ml Oral.Susp) 30 ml PO DAILY PRN PRN Reason: Constipation Melatonin (Melatonin 3 Mg Tablet) 6 mg PO BEDTIME PRN PRN Reason: Insomnia Pantoprazole Sodium (Pantoprazole Sodium 40 Mg/10 Ml Vial) 40 mg IVPUSH DAILY@0630 [facility] Sodium Chloride (0.9 % Sodium Chloride Flush 3 Ml Syringe) 3 ml IVFLUSH QSHIFT [facility] Home Medications ?Medication ?Instructions ?Recorded ?Confirmed ?Last Taken ?Type aspirin 81 mg tablet,delayed 81 mg PO DAILY 01/12/23 01/06/25 01/06/25 History release (Adult Low Dose Aspirin) fluticasone propionate 50 1 spray intranasal BID 01/12/23 01/06/25 01/06/25 History mcg/actuation nasal spray,suspension metformin 1,000 mg tablet 1,000 mg PO BID 01/12/23 01/06/25 01/06/25 History montelukast 10 mg tablet 10 mg PO DAILY 01/12/23 01/06/25 01/06/25 History acetaminophen 325 mg tablet 325 mg PO QID PRN Pain 01/06/25 01/06/25 Unknown History atorvastatin 40 mg tablet 40 mg PO DAILY 01/06/25 01/06/25 01/06/25 History emollient 1 ea topical Q12H 01/06/25 01/06/25 01/06/25 History gabapentin 100 mg capsule 100 mg PO TID PRN Pain 01/06/25 01/06/25 Unknown History metoprolol tartrate 25 mg tablet 12.5 mg PO BID 01/06/25 01/06/25 01/06/25 History omeprazole 20 mg capsule,delayed 20 mg PO BID@0630,1630 01/06/25 01/06/25 01/06/25 History release semaglutide 2 mg/dose (8 mg/3 mL) 2 mg subcut SA 01/06/25 01/06/25 12/31/24 History subcutaneous pen injector (Ozempic) Physical Exam Vital Signs and Narrative: Vital Signs: Last Vital Signs Temp 96.8 F 01/06/25 08:00 Pulse 91 01/06/25 09:29 Resp 13 01/06/25 09:29 BP 122/67 01/06/25 09:29 Pulse Ox 99 01/06/25 09:29 O2 Del Method Room Air 01/06/25 09:29 BMI result Body Mass Index 25.8 Const: Other: pleasant 84 year old male resting in bed comfortably, in NAD. awake, alert Nutritional Appearance: average body habitus Chest: Other: Midline sternal incision with Steri-Strips in place. well approximated, no erythema or drainage Resp: Effort & Inspection: normal respiratory effort, able to speak in complete sentences, no respiratory distress and no use of accessory muscles Cardio: Rate: regular rate GI: Palpation (GI): Soft to palpation Neuro: General: moves all extremities and CN's II-XI intact bilaterally Extrem: General: No pedal edema Results Labs 01/07/25 05:48 01/07/25 05:48 Labs: Laboratory Results - last 24 hr 01/06/25 01/06/25 08:17 09:19 MCV 79.6 L MCH 24.3 L MCHC 30.5 L RDW 18.6 H Plt Count 299 MPV 10.7 Immature Gran % (Auto) 0.5 H Neut % (Auto) 64.3 Lymph % (Auto) 19.4 L [place] % (Auto) 8.4 Eos % (Auto) 6.7 H Baso % (Auto) 0.7 Lymph # (Auto) 1.6 [place] # (Auto) 0.7 Eos # (Auto) 0.6 H Baso # (Auto) 0.1 Abs Immat Gran (auto) 0.04 H Absolute Neuts (auto) 5.4 Absolute Nucleated RBC 0.000 Nucleated RBC % (auto) 0.0 PT 14.1 H INR 1.2 H Anion Gap 18 Estim Creat Clear Calc 62.8 Estimated GFR > 60 Random Glucose 138 H Calcium 8.7 Magnesium 1.8 Total Bilirubin 1.3 H Direct Bilirubin 0.5 AST 62 H ALT 133 H Alkaline Phosphatase 190 H Total Protein 6.2 L Albumin 3.7 Stool Occult Blood POSITIVE Blood Type A Positive Antibody Screen NEGATIVE Crossmatch See Detail Assessment and Plan (1) GI bleed: Status: Acute Plan This is an 84-year-old male with history of coronary artery disease status post CABG and Maze procedure at [facility] on December 09, hypertension, hyperlipidemia, BPH, type 2 diabetes who presents to the emergency department with 5 days of progressively worsening generalized weakness found to have anemia symptomatic anemia due to blood loss from GI bleeding; probable subacute [place] [facility] [place] initially d/ec on eliquis/plavix which was changed to asa 81 mg due to dark stools did require blood [place] [facility] [place] H/H was 7.7/25.1 on discharge on 12/14 colonoscopy 12/2023 - multiple polyps removed H/H stable since 12/29, but down from previous baseline and now symptomatic 1U RBC ordered in ED GI consult pending, possible scope on Thursday IV PPI Clear liquid diet hold ASA CAD s/p CABG NSTEMI and cardiac cath revealing severe multivessel CAD, underwent CABG x3 on 12/09 Coronary artery bypass grafting x3 with a left internal mammary anastomosis, left anterior descending, a saphenous vein graft anastomosed to the obtuse marginal branch of the circumflex coronary artery, another saphenous vein graft anastomosed to the right main coronary artery, EnCompass clamp maze procedure with placement of an AtriCure clip Cardiac surgeon-Dr. Martinez, network operations center engineer Dr. Esparza/Dr. Kim continue metoprolol, statin hold asa until after planned procedure thursday Paroxysmal atrial fibrillation Diagnosed at [place] [facility] [place] Was discharged with Eliquis which was subsequently discontinued due to dark stools in NSR transaminitis trending down outpatient follow up BPH Continue finasteride T2DM hold metformin, ozempic SSI, POCs DVT prophylaxis-chemo prophylaxis contraindicated due to GI bleed, mechanical devices Code status-full code Healthcare proxy-carmina Romo Patient will likely require 2 midnight stay in the hospital for management of symptomatic anemia due to GI bleeding in the setting of recent CABG on antiplatelet agent requiring specialist evaluation and probable colonoscopy Quality Stroke Does the patient have a stroke diagnosis?: No VTE Prior VTE?: No VTE Risk Level:: Medical - moderate - high VTE Device Contraindication: N/A - Device Ordered VTE Drug Contraindication: Treatment Not Indicated
--- NOTE | 2025-01-06 11:53 | PC.NURSE ---
Pt resting comfortably in bed, at bedside. Blood transfusing, pt tolerating well.
[2025-01-06 12:28] LABS: Glucose, Whole Blood 93 mg/dL (60-115)
--- NOTE | 2025-01-06 14:34 | PHA.MEDREC ---
Addendum entered by Helio Bryan PharmD 01/06/25 14:38: reviewed Original Note: Pharmacy Consult ? Medication Reconciliation Pharmacy has completed the medication reconciliation. Spoke with pt and he had a list of medications on hand he confirmed with me. Per pt he no longer takes: Amiodarone Clopidogrel, Eliquis, Januvia and Irbesartan-Hydrochlorothiazide, stating his Dr stopped it when he had surgery around 12/18 and was never re-started on those.
--- NOTE | 2025-01-06 14:52 | PC.NURSE ---
1ux PRBC completed, pt tolerated well. VSS.
[2025-01-06 17:02] LABS: Glucose, Whole Blood 83 mg/dL (60-115)
[2025-01-06 20:26] LABS: Glucose, Whole Blood 98 mg/dL (60-115)
[2025-01-06] MEDS: Metoprolol Tartrate 12.5 MG HALFTAB PO (20:39)
--- NOTE | 2025-01-06 20:41 | PM.EVENT ---
Event Note Date of Service: 01/06/25 Event Note: GI Consult-Full note dictated. History from patient and EMR. Imp: GI bleed and anemia with the description of black stools after initiation of Plavix and Xarelto after CABG on 12/09/2024. He had been on aspirin preop. He reports no melena over the past 4 or 5 days and having started omeprazole about 4 days ago. He was switched back to aspirin from Eliquis and Plavix due to the previous melena and progressive anemia. He denies any UGI sx and has never had an upper endoscopy. He had a colonoscopy in [address] Justin with the removal of multiple polyps. He denies any change in BM's otherwise and there has been no BRBPR. He denies EtOH and smoking. He feels better after his transfusion earlier today and there has been no signs of active bleeding. Rec: IV PPI BID, resume low dose aspirin due to the very recent bypass and no sign of active bleeding, F/U Hgb's. I will plan for an EGD on 01/09. Full consent has been obtained for this, including risks of bleeding and perforation. Advance diet tonight. However, I will start liquids on Thursday such that if the upper endo on Thursday is negative we could then plan to do a colon prep on Thursday after the upper endo, and then a colonoscopy on Thursday. Will hold aspirin on Thursday. D/W patient in detail and he is comfortable with this plan. Thanks. Time Spent With Patient Time: Total time managing care of this patient today ____ minutes.
[2025-01-07] VITALS (10 sets, daily range): BP systolic 101–129; BP diastolic 53–72; PULSE 74–87; RESP 12–20; TEMP 36.1–36.8; O2SAT 94–98
--- NOTE | 2025-01-07 02:22 | CONS_ITS ---
DATE OF SERVICE: 01/06/2025 REASON FOR CONSULTATION: Melena, anemia, and heme-positive stool. HISTORY OF PRESENT ILLNESS: This has been obtained from the patient and the medical record. The patient is an 84-year-old male who has been noted to have a gradual and progressive anemia since early this year. In June of 2023, he had a hemoglobin of 13.2 with a normal MCV. In June of this year, he had a hemoglobin of 11.2 with an MCV of 88. In September, he had a hemoglobin of 9.2 with MCV of 82. He underwent coronary artery bypass on December 09. On December 22, his hemoglobin was 9.2. He was started on Plavix and Eliquis after the bypass and was then noted to have some melena. His hemoglobin dropped to 7.8 on December 29. It was 7.6 on December 30, 7.6 on January 02 and 7.7 yesterday. He did not have any associated upper GI symptoms such as heartburn, dysphagia, nausea, vomiting, nor early satiety. His appetite had been normal, although he does report his taste has been off since his bypass surgery in regard to being able to taste many different foods that he had previously enjoyed. He reports that his bowel movements have been regular and normal other than the color of black stool. He never noticed any hematochezia nor burgundy stool. He did have a colonoscopy last year with Dr. Justin with removal of multiple colon polyps. He has never had an upper endoscopy or upper GI series. He denies use of any NSAIDs. He does not smoke nor use any significant amounts of alcohol. There was a family history of colon cancer in a grandmother, but there is no family history of gastric malignancies or celiac disease. He came to the ER today due to weakness and was found to have hemoglobin of 7.6. His MCV was 79 today. He did receive 1 unit of blood this morning and does feel better in relationship to that with what he describes as significant improvement in his weakness. MEDICATIONS: At home most recently included acetaminophen, aspirin 81 mg, atorvastatin, finasteride, gabapentin, metformin, metoprolol, montelukast. He was started on omeprazole several days ago. He has been on Ozempic as well. PAST MEDICAL HISTORY: Diabetes mellitus, coronary artery disease with bypass in November, hyperlipidemia, allergies, skin cancer. Besides his heart surgery, he has also had deviated septum surgery. Colonoscopy in December [address] Justin revealed sessile serrated polyps, tubular adenomas, and hyperplastic polyp. SOCIAL HISTORY: He does not smoke, drink. He is retired from the [employer]. FAMILY HISTORY: Noncontributory. REVIEW OF SYSTEMS: CONSTITUTIONAL: He has been progressively weak over the past few weeks. His appetite has been good. SKIN: No rash. No pruritus. CARDIAC: No chest pain. PULMONARY: No cough hemoptysis GI as above urinary no dysuria no hematuria. PHYSICAL EXAMINATION: GENERAL: The patient is a pleasant, alert, pale male in no distress. SKIN: Warm and dry. Anicteric sclerae. MOIST Mucous membranes. NECK: Supple. CARDIAC: Normal S1, S2. ABDOMEN: Soft, nondistended, nontender without organomegaly or mass. LABORATORY DATA: As above. PT 14.1 with INR 1.2. Normal electrolytes. BUN 21, creatinine 0.9. Total bilirubin 1.3, direct bilirubin 0.5, AST 62, ALT 133, alkaline phosphatase 190, albumin 3.7. Stool was brown, but heme-positive. He did have a renal ultrasound on December 30, the results of which are pending. He had an ultrasound of the abdomen in December 2022 describing a fatty liver, but no other significant findings in that regard. He also had a CT scan in 2022 describing a normal liver. IMPRESSION: Given the patient's clinical history of reported black stool following the use of previous blood thinners, this seems quite consistent with some upper gastrointestinal bleeding from possible erosive gastritis, possible silent ulcer disease, or something such as angiodysplasia. There has been no sign of any active bleeding. His melena seems to have cleared up over the last few days at least since being off the 2 blood thinners and back on the low-dose aspirin. He does not describe any symptoms of a lower GI bleed. At this point, he appears very stable. I did review with him that I would recommend an upper endoscopy for evaluation of the melena and presumed upper GI bleeding. Full consent has been obtained from him for this, including risks of bleeding and perforation. The procedure will be done with monitored anesthesia care. I did advise him that would be important to exclude any significant upper GI source of bleeding prior to reinitiating the blood thinners. I will continue his low-dose aspirin for today and tomorrow while in the hospital but hold it for the day of the procedure on Thursday. Given the very recent bypass, I would like to continue the aspirin if possible. At this point, I do not think he needs a colonoscopy given the one he had just last year. However, I did advise him that we will keep him on clear liquids for the day before the upper endoscopy such that if the upper endoscopy is completely negative, we could then do a bowel prep later that day and then have him follow up the next day with a colonoscopy. However, if a clear source of blood loss is found on the upper endoscopy, I would then hold off on a colonoscopy given the study just 1 year ago. He will continue to have followup hemoglobins. I will continue his IV PPI twice a day. He will need to start an eventual Iron supplement. This has all been discussed in detail with the patient and he is comfortable with this plan. Thank you for the consultation. MD DAYNA Lisa/SVETLANA / [phone] TAMIE
[2025-01-07 06:14] LABS: Hematocrit 23.9 % (42.0-52.0); Hemoglobin 7.5 g/dl (14.0-18.0); Mean Corpuscular HGB Conc 31.4 g/dl (31.0-36.0); Mean Corpuscular Hemoglobin 24.9 pg (27.0-33.0); Mean Corpuscular Volume 79.4 fL (80.0-98.0); NRBC Abs Auto 0.000 X10*3/uL (0.0-0.012); NRBC Pct Auto 0.0 /100WBC (0.0-0.2); Platelet Count 185 X10*3/uL (160-400); Red Blood Count 3.01 X10*6/uL (4.60-5.80); White Blood Count 5.7 X10*3/uL (4.8-10.8)
[2025-01-07 06:35] LABS: Anion Gap 12 (12-20); Blood Urea Nitrogen 16 mg/dL (9-16); Calcium 8.1 mg/dL (8.4-10.2); Carbon Dioxide 24 mmol/L (22-29); Chloride 107 mmol/L (96-108); Creatinine Clr Calc Pharmacy 62.8; Estimated Glomerular Filt Rate > 60; Potassium 3.8 mmol/L (3.3-5.1); Sodium 139 mmol/L (135-145)
[2025-01-07 07:52] LABS: Glucose, Whole Blood 91 mg/dL (60-115)
[2025-01-07 08:09] LABS: Alanine Aminotransferase 91 U/L (0-40); Albumin Level 3.0 g/dL (3.5-5.0); Alkaline Phosphatase 152 U/L (39-117); Aspartate Amino Transferase 43 U/L (5-37); Total Protein 5.2 g/dL (6.5-8.0)
[2025-01-07] MEDS: Aspirin Enteric Coated 81 MG TABLET.DR PO (08:35)
[2025-01-07] MEDS: 0.9 % Sodium Chloride Flush 3 ML SYRINGE IVFLUSH ×3 (08:38→21:29)
[2025-01-07] MEDS: Metoprolol Tartrate 12.5 MG HALFTAB PO ×2 (09:01→21:27)
--- NOTE | 2025-01-07 09:14 | PC.NURSE ---
Dr Moore to bedside for eval, pt denies SI or HI at this time. VSS. Awaits CARE team consult. 1:1 for safety
--- NOTE | 2025-01-07 09:22 | HO.PM.IMPN ---
Subjective Subjective Date of Service: 01/07/25 Interval History: no chest pain or shortness of breath c/o fatigue/weakness no abd pain Hb 7.5 Review of Systems Review of Systems: Yes all other systems are reviewed and are negative Physical Exam Vital Signs: Vital Signs: Last Vital Signs Temp 96.9 F 01/07/25 09:14 Pulse 79 01/07/25 09:14 Resp 17 01/07/25 09:14 BP 113/63 01/07/25 09:14 Pulse Ox 95 01/07/25 09:14 O2 Del Method Room Air 01/07/25 09:14 BMI result Body Mass Index 25.8 Gen: in no acute distress HEENT: sclera anicteric, moist mucus membranes Neck: supple Lungs: clear to auscultation bilaterally Heart: regular rate and rhythm, no murmurs Abd: soft, non-tender, non-distended Ext: no edema Skin: warm/well-perfused Neuro: alert and oriented x3, no focal findings Psych: appropriate affect Objective Data Active Medications Acetaminophen (Acetaminophen 325 Mg Tablet) 650 mg PO Q6H PRN PRN Reason: Pain, Mild 1-3,fever,headache Aspirin (Aspirin Enteric Coated 81 Mg Tablet.) 81 mg PO DAILY [facility] Stop: 01/09/25 00:05 Last Admin: 01/07/25 08:35 Dose: 81 mg Documented By: RAI Atorvastatin Calcium (Atorvastatin Calcium 40 Mg Tablet) 40 mg PO DAILY [facility] Last Admin: 01/07/25 08:34 Dose: 40 mg Documented By: RAI Calcium Carbonate (Calcium Carbonate 750 Mg Tab.Chew) 750 mg PO Q4H PRN PRN Reason: Heartburn Dextrose (Dextrose 50 % 25 Gm/50 Ml Syringe) 25 gm IVPUSH Q15M PRN; Protocol PRN Reason: per Hypoglycemia Standing Ord. Finasteride (Finasteride 5 Mg Tablet) 5 mg PO DAILY [facility] Last Admin: 01/07/25 09:01 Dose: 5 mg Documented By: RAI Fluticasone Propionate (Fluticasone Propionate Nasal 16 Gm Gilbert) 1 spray NOSTRIL-B BID [facility] Last Admin: 01/07/25 09:01 Dose: Not Given Documented By: RAI Non-Admin Reason: Patient Refused Gabapentin (Gabapentin 100 Mg Capsule) 100 mg PO TID PRN PRN Reason: Pain, Moderate(Pain Scale 4-6) Glucose (Glucose Gel 15 Gm Gel..Gram.) 15 gm PO Q15M PRN; Protocol PRN Reason: per Hypoglycemia Standing Ord. Insulin Human Lispro (Insulin Lispro 100 Unit/Ml 3 Ml Vial) 0 unit SUBCUT QIDACHS [facility]; Protocol Last Admin: 01/07/25 08:05 Dose: Not Given Documented By: RAI Non-Admin Reason: No Insulin Coverage Magnesium Hydroxide (Milk Of Magnesia 30 Ml Oral.Susp) 30 ml PO DAILY PRN PRN Reason: Constipation Melatonin (Melatonin 3 Mg Tablet) 6 mg PO BEDTIME PRN PRN Reason: Insomnia Metoprolol Tartrate (Metoprolol Tartrate 12.5 Mg Halftab) 12.5 mg PO BID [facility]; Protocol Last Admin: 01/07/25 09:01 Dose: 12.5 mg Documented By: RAI Montelukast Sodium (Montelukast Sodium 10 Mg Tablet) 10 mg PO DAILY [facility] Last Admin: 01/07/25 08:35 Dose: 10 mg Documented By: RAI Pantoprazole Sodium (Pantoprazole Sodium 40 Mg/10 Ml Vial) 40 mg IVPUSH BID@0630,1630 [facility] Last Admin: 01/07/25 05:32 Dose: 40 mg Documented By: MICHELEOPEJerica Sodium Chloride (0.9 % Sodium Chloride Flush 3 Ml Syringe) 3 ml IVFLUSH QSHIFT [facility] Last Admin: 01/07/25 08:38 Dose: 3 ml Documented By: RAI Labs 01/07/25 05:48 01/07/25 05:48 Labs: Laboratory Results - last 24 hr 01/06/25 01/06/25 01/06/25 08:17 09:19 12:23 MCV MCH MCHC RDW Plt Count MPV Absolute Nucleated RBC Nucleated RBC % (auto) Anion Gap Estim Creat Clear Calc Estimated GFR POC Glucose 93 Random Glucose Calcium Total Bilirubin Direct Bilirubin AST ALT Alkaline Phosphatase Total Protein Albumin Stool Occult Blood POSITIVE Blood Type A Positive Antibody Screen NEGATIVE Crossmatch See Detail 01/06/25 01/06/25 01/07/25 16:57 20:22 05:48 MCV 79.4 L MCH 24.9 L MCHC 31.4 RDW 18.0 H Plt Count 185 D MPV 10.6 Absolute Nucleated RBC 0.000 Nucleated RBC % (auto) 0.0 Anion Gap 12 Estim Creat Clear Calc 62.8 Estimated GFR > 60 POC Glucose 83 98 Random Glucose 97 Calcium 8.1 L D Total Bilirubin 1.7 H Direct Bilirubin 0.5 AST 43 H ALT 91 H Alkaline Phosphatase 152 H Total Protein 5.2 L Albumin 3.0 L Stool Occult Blood Blood Type Antibody Screen Crossmatch 01/07/25 07:48 MCV MCH MCHC RDW Plt Count MPV Absolute Nucleated RBC Nucleated RBC % (auto) Anion Gap Estim Creat Clear Calc Estimated GFR POC Glucose 91 Random Glucose Calcium Total Bilirubin Direct Bilirubin AST ALT Alkaline Phosphatase Total Protein Albumin Stool Occult Blood Blood Type Antibody Screen Crossmatch Assessment and Plan (1) GI bleed: Status: Acute Plan d2, 84yo M with CAD s/p CABG + MAZE 12/09/24, HTN, HLD, BPH, DM2; presenting with weakness + dark stools, found to have anemia, FOBT+ subacute anemia from GI blood loss - GI consulted, IV PPI, plan EGD 01/09 and if unrevealing with prep for C-scope 01/10, CLD starting 01/08, OK to continue ASA but hold apixaban, transfused 1u pRBCs yesterday and will give another unit today, recheck CBC tomorrow CAD s/p CABG 12/09/24 pAF s/p MAZE 12/09/24 - continue metoprolol tartrate, atorvastatin, ASA; hold apixaban for now transaminasemia - 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 Quality Stroke Does the patient have a stroke diagnosis?: No VTE Prior VTE?: No VTE Risk Level:: Medical - moderate - high VTE Device Contraindication: N/A - Device Ordered VTE Drug Contraindication: Treatment Not Indicated
--- NOTE | 2025-01-07 10:50 | PC.NURSE ---
PRBC completed, VSS.
[2025-01-07 12:57] LABS: Glucose, Whole Blood 123 mg/dL (60-115)
--- NOTE | 2025-01-07 16:17 | MHC.CM.PN ---
PT REPORTS HE LIVES WITH HIS S/O AND IS INDEPENDENT WITH CARE HE REPORTS BEING ACTIVE WITH [facility] FOR SN AND PT, RETURN REFERRAL PLACED HE SAYS HE HAS A HCP COMPLETED NAMING HIS SON, ON FILE AT [facility], UNABLE TO REQUEST A COPY ON THE W/E PCP: G[facility] DELIVERED DCP: HOME RESUME [facility] S/O TO TRANSPORT
[2025-01-07 16:31] LABS: Glucose, Whole Blood 123 mg/dL (60-115)
[2025-01-07 20:44] LABS: Glucose, Whole Blood 135 mg/dL (60-115)
[2025-01-08 03:33] VITALS: BP 104/59; PULSE 75; RESP 20; TEMP 37.2; O2SAT 96
[2025-01-08 06:59] LABS: Glucose, Whole Blood 116 mg/dL (60-115)
[2025-01-08 07:06] VITALS: BP 115/63; PULSE 82; RESP 18; TEMP 36.5; O2SAT 95
[2025-01-08 07:18] LABS: Hematocrit 28.3 % (42.0-52.0); Hemoglobin 8.7 g/dl (14.0-18.0); Mean Corpuscular HGB Conc 30.7 g/dl (31.0-36.0); Mean Corpuscular Hemoglobin 24.4 pg (27.0-33.0); Mean Corpuscular Volume 79.5 fL (80.0-98.0); NRBC Abs Auto 0.000 X10*3/uL (0.0-0.012); NRBC Pct Auto 0.0 /100WBC (0.0-0.2); Platelet Count 185 X10*3/uL (160-400); Red Blood Count 3.56 X10*6/uL (4.60-5.80); White Blood Count 5.8 X10*3/uL (4.8-10.8)
[2025-01-08 07:31] LABS: Alanine Aminotransferase 77 U/L (0-40); Albumin Level 3.0 g/dL (3.5-5.0); Alkaline Phosphatase 147 U/L (39-117); Anion Gap 10 (12-20); Aspartate Amino Transferase 49 U/L (5-37); Blood Urea Nitrogen 13 mg/dL (9-16); Calcium 8.0 mg/dL (8.4-10.2); Carbon Dioxide 26 mmol/L (22-29); Chloride 108 mmol/L (96-108); Creatinine Clr Calc Pharmacy 53.5; Estimated Glomerular Filt Rate > 60; Potassium 4.1 mmol/L (3.3-5.1); Sodium 140 mmol/L (135-145); Total Protein 5.2 g/dL (6.5-8.0)
[2025-01-08] MEDS: Metoprolol Tartrate 12.5 MG HALFTAB PO ×2 (07:48→21:38)
[2025-01-08] MEDS: 0.9 % Sodium Chloride Flush 3 ML SYRINGE IVFLUSH ×3 (07:48→21:38)
[2025-01-08] MEDS: Aspirin Enteric Coated 81 MG TABLET.DR PO (09:23)
--- NOTE | 2025-01-08 09:56 | P.PNIM_ITS ---
Subjective Subjective Date of Service: 01/08/25 Interval History: no chest pain no dyspnea no further dark stools no abd pain Review of Systems Review of Systems: Yes all other systems are reviewed and are negative Physical Exam 2 Vital Signs: Vital Signs: Last Vital Signs Temp 97.7 F 01/08/25 07:06 Pulse 82 01/08/25 07:06 Resp 18 01/08/25 07:06 BP 115/63 01/08/25 07:06 Pulse Ox 95 01/08/25 07:06 O2 Del Method Room Air 01/08/25 07:06 BMI result Body Mass Index 25.8 Gen: in no acute distress HEENT: sclera anicteric, moist mucus membranes Neck: supple Lungs: diminished L base Heart: regular rate and rhythm, no murmurs Abd: soft, non-tender, non-distended Ext: no edema Skin: warm/well-perfused Neuro: alert and oriented x3, no focal findings Psych: appropriate affect Objective Data Active Medications Acetaminophen (Acetaminophen 325 Mg Tablet) 650 mg PO Q6H PRN PRN Reason: Pain, Mild 1-3,fever,headache Aspirin (Aspirin Enteric Coated 81 Mg Tablet.) 81 mg PO DAILY [facility] Stop: 01/09/25 00:05 Last Admin: 01/08/25 09:23 Dose: 81 mg Documented By: JEN Atorvastatin Calcium (Atorvastatin Calcium 40 Mg Tablet) 40 mg PO DAILY [facility] Last Admin: 01/08/25 07:48 Dose: 40 mg Documented By: JEN Calcium Carbonate (Calcium Carbonate 750 Mg Tab.Chew) 750 mg PO Q4H PRN PRN Reason: Heartburn Dextrose (Dextrose 50 % 25 Gm/50 Ml Syringe) 25 gm IVPUSH Q15M PRN; Protocol PRN Reason: per Hypoglycemia Standing Ord. Finasteride (Finasteride 5 Mg Tablet) 5 mg PO DAILY [facility] Last Admin: 01/08/25 07:48 Dose: 5 mg Documented By: JEN Fluticasone Propionate (Fluticasone Propionate Nasal 16 Gm Hale) 1 spray NOSTRIL-B BID [facility] Last Admin: 01/08/25 07:49 Dose: Not Given Documented By: JEN Non-Admin Reason: Patient Refused Gabapentin (Gabapentin 100 Mg Capsule) 100 mg PO TID PRN PRN Reason: Pain, Moderate(Pain Scale 4-6) Glucose (Glucose Gel 15 Gm Gel..Gram.) 15 gm PO Q15M PRN; Protocol PRN Reason: per Hypoglycemia Standing Ord. Insulin Human Lispro (Insulin Lispro 100 Unit/Ml 3 Ml Vial) 0 unit SUBCUT QIDACHS [facility]; Protocol Last Admin: 01/08/25 07:14 Dose: Not Given Documented By: JEN Non-Admin Reason: No Insulin Coverage Magnesium Hydroxide (Milk Of Magnesia 30 Ml Oral.Susp) 30 ml PO DAILY PRN PRN Reason: Constipation Melatonin (Melatonin 3 Mg Tablet) 6 mg PO BEDTIME PRN PRN Reason: Insomnia Metoprolol Tartrate (Metoprolol Tartrate 12.5 Mg Halftab) 12.5 mg PO BID [facility]; Protocol Last Admin: 01/08/25 07:48 Dose: 12.5 mg Documented By: JEN Montelukast Sodium (Montelukast Sodium 10 Mg Tablet) 10 mg PO DAILY [facility] Last Admin: 01/08/25 07:48 Dose: 10 mg Documented By: JEN Pantoprazole Sodium (Pantoprazole Sodium 40 Mg/10 Ml Vial) 40 mg IVPUSH BID@0630,1630 [facility] Last Admin: 01/08/25 05:19 Dose: 40 mg Documented By: THERESA Sodium Chloride (0.9 % Sodium Chloride Flush 3 Ml Syringe) 3 ml IVFLUSH QSHIFT [facility] Last Admin: 01/08/25 07:48 Dose: 3 ml Documented By: JEN Labs 01/08/25 07:05 01/08/25 07:05 Labs: Laboratory Results - last 24 hr 01/06/25 01/07/25 01/07/25 08:17 12:54 16:22 MCV MCH MCHC RDW Plt Count MPV Absolute Nucleated RBC Nucleated RBC % (auto) Anion Gap Estim Creat Clear Calc Estimated GFR POC Glucose 123 H 123 H Random Glucose Calcium Total Bilirubin AST ALT Alkaline Phosphatase Total Protein Albumin Crossmatch See Detail 01/07/25 01/08/25 01/08/25 20:38 06:51 07:05 MCV 79.5 L MCH 24.4 L MCHC 30.7 L RDW 18.4 H Plt Count 185 MPV 10.5 Absolute Nucleated RBC 0.000 Nucleated RBC % (auto) 0.0 Anion Gap 10 L Estim Creat Clear Calc 53.5 Estimated GFR > 60 POC Glucose 135 H 116 H Random Glucose 125 H Calcium 8.0 L Total Bilirubin 1.6 H AST 49 H ALT 77 H Alkaline Phosphatase 147 H Total Protein 5.2 L Albumin 3.0 L Crossmatch Assessment and Plan (1) GI bleed: Status: Acute Plan d3, 84yo M with CAD s/p CABG + MAZE 12/09/24, HTN, HLD, BPH, DM2; presenting with weakness + dark stools, found to have anemia, FOBT+ subacute anemia from GI blood loss - GI consulted, IV PPI, plan EGD tomorrow and if unrevealing with prep for C- scope 01/10, CLD starting today, OK to continue ASA but hold apixaban, H+H stable after 2u pRBCs CAD s/p CABG 12/09/24 pAF s/p MAZE 12/09/24 - continue metoprolol tartrate, atorvastatin, ASA; hold apixaban for now transaminasemia - 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 Quality Stroke Does the patient have a stroke diagnosis?: No VTE Prior VTE?: No VTE Risk Level:: Medical - moderate - high VTE Device Contraindication: N/A - Device Ordered VTE Drug Contraindication: Treatment Not Indicated
[2025-01-08 10:57] LABS: Glucose, Whole Blood 134 mg/dL (60-115)
[2025-01-08 11:04] VITALS: BP 106/59; PULSE 77; RESP 18; TEMP 36.6; O2SAT 95
[2025-01-08 15:18] VITALS: BP 137/69; PULSE 80; RESP 20; TEMP 36.2; O2SAT 98
[2025-01-08 16:19] LABS: Glucose, Whole Blood 99 mg/dL (60-115)
[2025-01-08 19:21] VITALS: BP 133/80; PULSE 82; RESP 18; TEMP 36.1; O2SAT 99
[2025-01-08 20:28] LABS: Glucose, Whole Blood 137 mg/dL (60-115)
[2025-01-08 23:00] VITALS: BP 122/70; PULSE 84; RESP 16; TEMP 36.5; O2SAT 96
[2025-01-09] VITALS (9 sets, daily range): BP systolic 93–135; BP diastolic 58–80; PULSE 61–88; RESP 12–18; TEMP 36–37.1; O2SAT 94–99
[2025-01-09 07:14] LABS: Glucose, Whole Blood 100 mg/dL (60-115)
[2025-01-09 07:34] LABS: MANUAL DIFF FLAG NO
[2025-01-09 07:44] LABS: Hematocrit 30.0 % (42.0-52.0); Hemoglobin 9.2 g/dl (14.0-18.0); Imm Gran Abs Auto 0.02 X10*3/uL (0.00-0.03); Imm Gran Pct Auto 0.3 % (0.0-0.4); Lymphocytes Absolute Auto 1.4 X10*3/uL (1.2-4.9); Mean Corpuscular HGB Conc 30.7 g/dl (31.0-36.0); Mean Corpuscular Hemoglobin 24.7 pg (27.0-33.0); Mean Corpuscular Volume 80.4 fL (80.0-98.0); NRBC Abs Auto 0.000 X10*3/uL (0.0-0.012); NRBC Pct Auto 0.0 /100WBC (0.0-0.2); Platelet Count 198 X10*3/uL (160-400); Red Blood Count 3.73 X10*6/uL (4.60-5.80); White Blood Count 6.1 X10*3/uL (4.8-10.8)
--- NOTE | 2025-01-09 08:28 | HO.ANESPROP2 ---
Documented by User: Virginie Garza NP 01/09/25 09:07 HPI - Anesthesia Eval Consult details Narrative: 84 yr old male for EGD. [place] [facility] [place], eliquis currently on hold. 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 No recent illness No CP/SOB Anesthesia Pre-Procedure Meds Is the patient on any of the following meds?: GLP1/DPP4 (?last dose 12/31/24) [facility] Active Problems Active Problems: All Active Problems Weakness (Acute) Acute blood loss anemia (Acute) GI bleed (Acute) BPH loc w urin obs/LUTS (Acute) Screening PSA (prostate specific antigen) (Acute) Candidal balanitis (Acute) BPH (benign prostatic hyperplasia) (Acute) Gross hematuria (Acute) Past Medical History Medical History CAD (coronary artery disease) Elevated cholesterol Seasonal allergies Diabetes Basal cell carcinoma (BCC) Family History Family History Mother No problems noted. Father No problems noted. Family history of problems with anesthesia: No Surgical History Surgical History H/O maze procedure Failed CABG (coronary artery bypass graft) History of transurethral resection of bladder tumor (TURBT) History of biopsy of bladder Hx of colonoscopy Hx of cystoscopy History of Problems with Anesthesia: No Social History Social History Household Members: Significant Other Housing: House Are you a primary patient care associate to a significant other at home: No Do you presently have visiting nurse or other home services: No Alcohol intake: current Alcohol intake frequency: holidays/special occasions only Patient Tobacco Use Status: Former Tobacco user Advance Directives Date on File: 01/07/25 service: Yes Meds Allergies Allergy/AdvReac Type Severity Reaction Status Date / Time No Known Allergies (No Known Allergy Verified 01/06/25 08:02 Allergies*) Active Medications: Current Medications Acetaminophen (Acetaminophen 325 Mg Tablet) 650 mg PO Q6H PRN PRN Reason: Pain, Mild 1-3,fever,headache Atorvastatin Calcium (Atorvastatin Calcium 40 Mg Tablet) 40 mg PO DAILY [facility] Last Admin: 01/08/25 07:48 Dose: 40 mg Calcium Carbonate (Calcium Carbonate 750 Mg Tab.Chew) 750 mg PO Q4H PRN PRN Reason: Heartburn Dextrose (Dextrose 50 % 25 Gm/50 Ml Syringe) 25 gm IVPUSH Q15M PRN; Protocol PRN Reason: per Hypoglycemia Standing Ord. Finasteride (Finasteride 5 Mg Tablet) 5 mg PO DAILY [facility] Last Admin: 01/08/25 07:48 Dose: 5 mg Fluticasone Propionate (Fluticasone Propionate Nasal 16 Gm [place]) 1 spray NOSTRIL-B BID [facility] Last Admin: 01/08/25 21:38 Dose: Not Given Gabapentin (Gabapentin 100 Mg Capsule) 100 mg PO TID PRN PRN Reason: Pain, Moderate(Pain Scale 4-6) Glucose (Glucose Gel 15 Gm Gel..Gram.) 15 gm PO Q15M PRN; Protocol PRN Reason: per Hypoglycemia Standing Ord. Insulin Human Lispro (Insulin Lispro 100 Unit/Ml 3 Ml Vial) 0 unit SUBCUT QIDACHS [facility]; Protocol Last Admin: 01/09/25 07:13 Dose: Not Given Magnesium Hydroxide (Milk Of Magnesia 30 Ml Oral.Susp) 30 ml PO DAILY PRN PRN Reason: Constipation Melatonin (Melatonin 3 Mg Tablet) 6 mg PO BEDTIME PRN PRN Reason: Insomnia Metoprolol Tartrate (Metoprolol Tartrate 12.5 Mg Halftab) 12.5 mg PO BID [facility]; Protocol Last Admin: 01/08/25 21:38 Dose: 12.5 mg Montelukast Sodium (Montelukast Sodium 10 Mg Tablet) 10 mg PO DAILY [facility] Last Admin: 01/08/25 07:48 Dose: 10 mg Pantoprazole Sodium (Pantoprazole Sodium 40 Mg/10 Ml Vial) 40 mg IVPUSH BID@0630,1630 [facility] Last Admin: 01/09/25 05:36 Dose: 40 mg Sodium Chloride (0.9 % Sodium Chloride Flush 3 Ml Syringe) 3 ml IVFLUSH QSHIFT [facility] Last Admin: 01/08/25 21:38 Dose: 3 ml Home Medications ?Medication ?Instructions ?Recorded ?Confirmed ?Last Taken ?Type aspirin 81 mg tablet,delayed 81 mg PO DAILY 01/12/23 01/06/25 01/06/25 History release (Adult Low Dose Aspirin) fluticasone propionate 50 1 spray intranasal BID 01/12/23 01/06/25 01/06/25 History mcg/actuation nasal spray,suspension metformin 1,000 mg tablet 1,000 mg PO BID 01/12/23 01/06/25 01/06/25 History montelukast 10 mg tablet 10 mg PO DAILY 01/12/23 01/06/25 01/06/25 History acetaminophen 325 mg tablet 325 mg PO QID PRN Pain 01/06/25 01/06/25 Unknown History atorvastatin 40 mg tablet 40 mg PO DAILY 01/06/25 01/06/25 01/06/25 History emollient 1 ea topical Q12H 01/06/25 01/06/25 01/06/25 History gabapentin 100 mg capsule 100 mg PO TID PRN Pain 01/06/25 01/06/25 Unknown History metoprolol tartrate 25 mg tablet 12.5 mg PO BID 01/06/25 01/06/25 01/06/25 History omeprazole 20 mg capsule,delayed 20 mg PO BID@0630,1630 01/06/25 01/06/25 01/06/25 History release semaglutide 2 mg/dose (8 mg/3 mL) 2 mg subcut SA 01/06/25 01/06/25 12/31/24 History subcutaneous pen injector (Ozempic) Exam Height,Weight and Vital Signs: Height 5 ft 10 in Weight 81.647 kg Last Vital Signs Temp 97.0 F 01/09/25 07:54 Pulse 80 01/09/25 07:54 Resp 18 01/09/25 07:54 BP 124/64 01/09/25 07:54 Pulse Ox 94 01/09/25 03:30 O2 Del Method Room Air 01/09/25 07:54 Pertinent Lab Results Pertinent Lab Results: Laboratory Tests 01/06/25 01/06/25 01/06/25 08:17 09:19 12:23 WBC 8.5 RBC 3.13 L Hgb 7.6 L Hct 24.9 L MCV 79.6 L MCH 24.3 L MCHC 30.5 L RDW 18.6 H Plt Count 299 MPV 10.7 Immature Gran % (Auto) 0.5 H Neut % (Auto) 64.3 Lymph % (Auto) 19.4 L [place] % (Auto) 8.4 Eos % (Auto) 6.7 H Baso % (Auto) 0.7 Lymph # (Auto) 1.6 [place] # (Auto) 0.7 Eos # (Auto) 0.6 H Baso # (Auto) 0.1 Abs Immat Gran (auto) 0.04 H Absolute Neuts (auto) 5.4 Absolute Nucleated RBC 0.000 Nucleated RBC % (auto) 0.0 PT 14.1 H INR 1.2 H Sodium 141 Potassium 4.6 Chloride 106 Carbon Dioxide 22 Anion Gap 18 BUN 21 H Creatinine 0.92 Estim Creat Clear Calc 62.8 Estimated GFR > 60 POC Glucose 93 Random Glucose 138 H Calcium 8.7 Magnesium 1.8 Total Bilirubin 1.3 H Direct Bilirubin 0.5 AST 62 H ALT 133 H Alkaline Phosphatase 190 H Total Protein 6.2 L Albumin 3.7 Stool Occult Blood POSITIVE Blood Type A Positive Antibody Screen NEGATIVE Crossmatch See Detail 01/06/25 01/06/25 01/07/25 16:57 20:22 05:48 WBC 5.7 RBC 3.01 L Hgb 7.5 L Hct 23.9 L MCV 79.4 L MCH 24.9 L MCHC 31.4 RDW 18.0 H Plt Count 185 D MPV 10.6 Immature Gran % (Auto) Neut % (Auto) Lymph % (Auto) [place] % (Auto) Eos % (Auto) Baso % (Auto) Lymph # (Auto) [place] # (Auto) Eos # (Auto) Baso # (Auto) Abs Immat Gran (auto) Absolute Neuts (auto) Absolute Nucleated RBC 0.000 Nucleated RBC % (auto) 0.0 PT INR Sodium 139 Potassium 3.8 Chloride 107 Carbon Dioxide 24 Anion Gap 12 BUN 16 Creatinine 0.92 Estim Creat Clear Calc 62.8 Estimated GFR > 60 POC Glucose 83 98 Random Glucose 97 Calcium 8.1 L D Magnesium Total Bilirubin 1.7 H Direct Bilirubin 0.5 AST 43 H ALT 91 H Alkaline Phosphatase 152 H Total Protein 5.2 L Albumin 3.0 L Stool Occult Blood Blood Type Antibody Screen Crossmatch 01/07/25 01/07/25 01/07/25 07:48 12:54 16:22 WBC RBC Hgb Hct MCV MCH MCHC RDW Plt Count MPV Immature Gran % (Auto) Neut % (Auto) Lymph % (Auto) [place] % (Auto) Eos % (Auto) Baso % (Auto) Lymph # (Auto) [place] # (Auto) Eos # (Auto) Baso # (Auto) Abs Immat Gran (auto) Absolute Neuts (auto) Absolute Nucleated RBC Nucleated RBC % (auto) PT INR Sodium Potassium Chloride Carbon Dioxide Anion Gap BUN Creatinine Estim Creat Clear Calc Estimated GFR POC Glucose 91 123 H 123 H Random Glucose Calcium Magnesium Total Bilirubin Direct Bilirubin AST ALT Alkaline Phosphatase Total Protein Albumin Stool Occult Blood Blood Type Antibody Screen Crossmatch 01/07/25 01/08/25 01/08/25 20:38 06:51 07:05 WBC 5.8 RBC 3.56 L Hgb 8.7 L Hct 28.3 L MCV 79.5 L MCH 24.4 L MCHC 30.7 L RDW 18.4 H Plt Count 185 MPV 10.5 Immature Gran % (Auto) Neut % (Auto) Lymph % (Auto) [place] % (Auto) Eos % (Auto) Baso % (Auto) Lymph # (Auto) [place] # (Auto) Eos # (Auto) Baso # (Auto) Abs Immat Gran (auto) Absolute Neuts (auto) Absolute Nucleated RBC 0.000 Nucleated RBC % (auto) 0.0 PT INR Sodium 140 Potassium 4.1 Chloride 108 Carbon Dioxide 26 Anion Gap 10 L BUN 13 Creatinine 1.08 Estim Creat Clear Calc 53.5 Estimated GFR > 60 POC Glucose 135 H 116 H Random Glucose 125 H Calcium 8.0 L Magnesium Total Bilirubin 1.6 H Direct Bilirubin AST 49 H ALT 77 H Alkaline Phosphatase 147 H Total Protein 5.2 L Albumin 3.0 L Stool Occult Blood Blood Type Antibody Screen Crossmatch 01/08/25 01/08/25 01/08/25 10:52 16:11 20:10 WBC RBC Hgb Hct MCV MCH MCHC RDW Plt Count MPV Immature Gran % (Auto) Neut % (Auto) Lymph % (Auto) [place] % (Auto) Eos % (Auto) Baso % (Auto) Lymph # (Auto) [place] # (Auto) Eos # (Auto) Baso # (Auto) Abs Immat Gran (auto) Absolute Neuts (auto) Absolute Nucleated RBC Nucleated RBC % (auto) PT INR Sodium Potassium Chloride Carbon Dioxide Anion Gap BUN Creatinine Estim Creat Clear Calc Estimated GFR POC Glucose 134 H 99 137 H Random Glucose Calcium Magnesium Total Bilirubin Direct Bilirubin AST ALT Alkaline Phosphatase Total Protein Albumin Stool Occult Blood Blood Type Antibody Screen Crossmatch 01/09/25 01/09/25 07:11 07:18 WBC 6.1 RBC 3.73 L Hgb 9.2 L Hct 30.0 L MCV 80.4 MCH 24.7 L MCHC 30.7 L RDW 18.6 H Plt Count 198 MPV 11.0 Immature Gran % (Auto) 0.3 Neut % (Auto) 57.3 Lymph % (Auto) 23.4 [place] % (Auto) 8.4 Eos % (Auto) 9.9 H Baso % (Auto) 0.7 Lymph # (Auto) 1.4 [place] # (Auto) 0.5 Eos # (Auto) 0.6 H Baso # (Auto) 0.0 Abs Immat Gran (auto) 0.02 Absolute Neuts (auto) 3.5 Absolute Nucleated RBC 0.000 Nucleated RBC % (auto) 0.0 PT INR Sodium Potassium Chloride Carbon Dioxide Anion Gap BUN Creatinine Estim Creat Clear Calc Estimated GFR POC Glucose 100 Random Glucose Calcium Magnesium Total Bilirubin Direct Bilirubin AST ALT Alkaline Phosphatase Total Protein Albumin Stool Occult Blood Blood Type Antibody Screen Crossmatch Narrative Narrative: EKG 01/06/25 Vent. Rate : 87 BPM Atrial Rate : 87 BPM P-R Int : 256 ms QRS Dur : 86 ms QT Int : 416 ms P-R-T Axes : 82 -27 80 degrees QTcB Int : 500 ms Sinus rhythm with marked sinus arrhythmia with 1st degree A-V block with frequent Premature ventricular complexes Nonspecific T wave abnormality Prolonged QT Abnormal ECG When compared with ECG of 06-Jan-2025 08:05, No significant change was found ECHO 12/07/24 Left ventricular size is normal. Left ventricular wall thickness is normal. LV function normal. LVEF 57%. No wall motion abnormalities. Aortic valve mildly calcified. No significant aortic regurg. No aortic stenosis. Right ventricle is normal in size, function. Trivial pericardial effusion anteriorly. Airway Mallampati Class: III TM Dist: >3cm Neck ROM: Full Loose/Missing/Broken Teeth: No Heart: RRR Lungs: CTAB Assessment and Plan Final Anesthetic Review Family History of Problems with Anesthesia: No History of Problems with Anesthesia: No Documented by User: Tere Lima MD 01/09/25 13:03 PMFSH Past Medical History Medical History CAD (coronary artery disease) Elevated cholesterol Seasonal allergies Diabetes Basal cell carcinoma (BCC) Family History Family History Mother No problems noted. Father No problems noted. Surgical History Surgical History H/O maze procedure Failed CABG (coronary artery bypass graft) History of transurethral resection of bladder tumor (TURBT) History of biopsy of bladder Hx of colonoscopy Hx of cystoscopy Social History Social History Household Members: Significant Other Housing: House Are you a primary patient care associate to a significant other at home: No Do you presently have visiting nurse or other home services: No Alcohol intake: current Alcohol intake frequency: holidays/special occasions only Patient Tobacco Use Status: Former Tobacco user Advance Directives Date on File: 01/07/25 service: Yes Meds Allergies Allergy/AdvReac Type Severity Reaction Status Date / Time No Known Allergies (No Known Allergy Verified 01/06/25 08:02 Allergies*) Home Medications ?Medication ?Instructions ?Recorded ?Confirmed ?Last Taken ?Type aspirin 81 mg tablet,delayed 81 mg PO DAILY 01/12/23 01/06/25 01/06/25 History release (Adult Low Dose Aspirin) fluticasone propionate 50 1 spray intranasal BID 01/12/23 01/06/25 01/06/25 History mcg/actuation nasal spray,suspension metformin 1,000 mg tablet 1,000 mg PO BID 01/12/23 01/06/25 01/06/25 History montelukast 10 mg tablet 10 mg PO DAILY 01/12/23 01/06/25 01/06/25 History acetaminophen 325 mg tablet 325 mg PO QID PRN Pain 01/06/25 01/06/25 Unknown History atorvastatin 40 mg tablet 40 mg PO DAILY 01/06/25 01/06/25 01/06/25 History emollient 1 ea topical Q12H 01/06/25 01/06/25 01/06/25 History gabapentin 100 mg capsule 100 mg PO TID PRN Pain 01/06/25 01/06/25 Unknown History metoprolol tartrate 25 mg tablet 12.5 mg PO BID 01/06/25 01/06/25 01/06/25 History omeprazole 20 mg capsule,delayed 20 mg PO BID@0630,1630 01/06/25 01/06/25 01/06/25 History release semaglutide 2 mg/dose (8 mg/3 mL) 2 mg subcut SA 01/06/25 01/06/25 12/31/24 History subcutaneous pen injector (Ozempic) Assessment and Plan Assessment Anesthesia Assessment: Anesthesia Plan Discussed and Chart Reviewed Final Anesthetic Review NPO: Yes ASA Class: III Final Preanesthetic Review: No Changes in Pt Med Stat, Meds/Allgs Chart Reviewed, Consent Obtained/Reviewed and Anes Risks/Benef Reviewed Patient Risk: Intermediate Procedure Risk: Low Anesthetic Plan Anesthetic Plan: MAC: Disposition: Standard PACU
[2025-01-09] MEDS: Metoprolol Tartrate 12.5 MG HALFTAB PO ×2 (08:40→22:06)
[2025-01-09] MEDS: 0.9 % Sodium Chloride Flush 3 ML SYRINGE IVFLUSH ×3 (08:43→22:06)
[2025-01-09 12:11] LABS: Glucose, Whole Blood 98 mg/dL (60-115)
--- NOTE | 2025-01-09 12:39 | P.DS_ITS ---
DS: Providers Provider Date of Service: 01/09/25 Date of admission: 01/06/25 10:48 Date of discharge: 01/09/25 Primary care physician: Vini Mendoza MD Consults: 01/06/25 10:50 Consult to Gastroenterology Routine Consulting Provider: Leo Guo Reason for consultation: symptomatic anemia, hemt + stool Has provider been notified: No DS: Diagnosis Discharge Diagnosis (1) GI bleed: Status: Acute (2) Anemia due to GI blood loss: Status: Acute (3) Atrial fibrillation: Status: Acute DS: Summary Hospital Course Hospital Course: From the history and physical by the admitting hospitalist, ERROL Diaz, 01/06/25: This is an 84-year-old male who underwent triple bypass at [facility] on December 09 who presents to the emergency department with generalized weakness. Ten days after his surgery he developed dark stools and his Eliquis and Plavix were discontinued and he was started on baby aspirin. Over the past 4-5 days he has had generalized weakness. His PCP has been following his H/H which has been lower than previous but has remained stable. December 22 his H/H was 9.2/30.2, December 29 it dropped to 7.8/26.7. Over the past 2 days he states he had severe weakness and fatigue and had difficulty even ambulating into the emergency department due to severe fatigue. He denies dizziness, shortness of breath, chest pain. In the emergency department his H/H was 7.6/24.9, similar to yesterday, stool was brown but Hemoccult positive. Patient denies use of alcohol or any other NSAIDs. Patient will be admitted for management of symptomatic anemia 84yo M with CAD s/p CABG + MAZE 12/09/24, HTN, HLD, BPH, DM2; presenting with weakness + dark stools, found to have anemia, FOBT+; admitted to the telemetry unit. Hospital course by problem: subacute anemia from GI blood loss - GI consulted, IV PPI given, 2u pRBCs transfused with adequate response, ASA continued but apixaban held. EGD 01/09/[address] Guo showed: ___ He will follow up with Dr Guo in 2 weeks for biopsy results. 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 Time Attestation Discharge Coordination Time (in mins): 45 Quality: Safe Use of Opioids Does Pt have an Active Cancer Diagnosis on the Problem List?: No Quality: Stroke Does the patient have a stroke diagnosis?: No Physical Exam Vital Signs: Vital Signs: Last Vital Signs Temp 97.4 F 01/09/25 12:07 Pulse 88 01/09/25 12:07 Resp 16 01/09/25 12:07 BP 135/77 01/09/25 12:07 Pulse Ox 97 01/09/25 12:07 O2 Del Method Room Air 01/09/25 12:07 BMI result Body Mass Index 25.8 Gen: in no acute distress HEENT: sclera anicteric, moist mucus membranes Neck: supple Lungs: clear to auscultation bilaterally Heart: regular rate and rhythm, no murmurs, midline sternotomy scar Abd: soft, non-tender, non-distended Ext: no edema Skin: warm/well-perfused Neuro: alert and oriented x3, no focal findings Psych: appropriate affect DS: Data Data Completed and Pending Completed studies during hospitalization [Text1]: Laboratory Results WBC 6.1 X10*3/uL (4.8-10.8) 01/09/25 07:18 RBC 3.73 X10*6/uL (4.60-5.80) L 01/09/25 07:18 Hgb 9.2 g/dl (14.0-18.0) L 01/09/25 07:18 Hct 30.0 % (42.0-52.0) L 01/09/25 07:18 MCV 80.4 fL (80.0-98.0) 01/09/25 07:18 MCH 24.7 pg (27.0-33.0) L 01/09/25 07:18 MCHC 30.7 g/dl (31.0-36.0) L 01/09/25 07:18 RDW 18.6 % (11.0-16.0) H 01/09/25 07:18 Plt Count 198 X10*3/uL (160-400) 01/09/25 07:18 MPV 11.0 fL (9.4-12.4) 01/09/25 07:18 Immature Gran % (Auto) 0.3 % (0.0-0.4) 01/09/25 07:18 Neut % (Auto) 57.3 % (45-73) 01/09/25 07:18 Lymph % (Auto) 23.4 % (20-40) 01/09/25 07:18 [place] % (Auto) 8.4 % (2-11) 01/09/25 07:18 Eos % (Auto) 9.9 % (0-4) H 01/09/25 07:18 Baso % (Auto) 0.7 % (0-2) 01/09/25 07:18 Lymph # (Auto) 1.4 X10*3/uL (1.2-4.9) 01/09/25 07:18 [place] # (Auto) 0.5 X10*3/uL (0.1-1.2) 01/09/25 07:18 Eos # (Auto) 0.6 X10*3/uL (0.0-0.4) H 01/09/25 07:18 Baso # (Auto) 0.0 X10*3/uL (0.0-0.2) 01/09/25 07:18 Abs Immat Gran (auto) 0.02 X10*3/uL (0.00-0.03) 01/09/25 07:18 Absolute Neuts (auto) 3.5 x10*3/uL (2.0-8.3) 01/09/25 07:18 Absolute Nucleated RBC 0.000 X10*3/uL (0.0-0.012) 01/09/25 07:18 Nucleated RBC % (auto) 0.0 /100WBC (0.0-0.2) 01/09/25 07:18 PT 14.1 SEC (10.9-12.4) H 01/06/25 08:17 INR 1.2 (0.9-1.1) H 01/06/25 08:17 Sodium 140 mmol/L (135-145) 01/08/25 07:05 Potassium 4.1 mmol/L (3.3-5.1) 01/08/25 07:05 Chloride 108 mmol/L (96-108) 01/08/25 07:05 Carbon Dioxide 26 mmol/L (22-29) 01/08/25 07:05 Anion Gap 10 (12-20) L 01/08/25 07:05 BUN 13 mg/dL (9-16) 01/08/25 07:05 Creatinine 1.08 mg/dL (0.5-1.4) 01/08/25 07:05 Estim Creat Clear Calc 53.5 01/08/25 07:05 Estimated GFR > 60 01/08/25 07:05 POC Glucose 98 mg/dL (60-115) 01/09/25 11:37 Random Glucose 125 mg/dL (60-115) H 01/08/25 07:05 Calcium 8.0 mg/dL (8.4-10.2) L 01/08/25 07:05 Magnesium 1.8 mg/dL (1.6-2.6) 01/06/25 08:17 Total Bilirubin 1.6 mg/dL (0.0-1.0) H 01/08/25 07:05 Direct Bilirubin 0.5 mg/dL (0.0-0.5) 01/07/25 05:48 AST 49 U/L (5-37) H 01/08/25 07:05 ALT 77 U/L (0-40) H 01/08/25 07:05 Alkaline Phosphatase 147 U/L (39-117) H 01/08/25 07:05 Total Protein 5.2 g/dL (6.5-8.0) L 01/08/25 07:05 Albumin 3.0 g/dL (3.5-5.0) L 01/08/25 07:05 Stool Occult Blood POSITIVE (NEGATIVE) 01/06/25 09:19 Blood Type A Positive 01/06/25 08:17 Antibody Screen NEGATIVE 01/06/25 08:17 Crossmatch See Detail 01/06/25 08:17 Impressions Liver Elastography 01/07/25 08:00 IMPRESSION: 1. Echogenic liver. Similar findings were seen on previous ultrasound 01/02/2023 2. Liver elastography: Median liver stiffness measures 1.28 suggestive of high probability 3. Small partially exophytic cyst mid pole right kidney. Previously visualized echogenic stones in kidneys is not seen at this time. REFERENCE: Society of Radiologists in Ultrasound Liver Stiffness Thresholds (2020): LIVER STIFFNESS THRESHOLDS: *Liver Stiffness equal or less than 1.3 m/s: High probability of being normal. *Liver Stiffness less than 1.7 m/s: In the absence of other known clinical signs, rules out compensated advanced chronic liver disease. *Liver Stiffness 1.7-2.1 m/s: Suggestive of compensated advanced chronic liver disease but need further test for confirmation. *Liver Stiffness over 2.1 m/s: Rules in compensated advanced chronic liver disease. *Liver Stiffness over 2.4 m/s: Suggestive of clinically significant portal hypertension. QUALITY OF DATA SET: *IQR/Median value equal or less than 0.15 implies a quality data set. *IQR/Median value over 0.15 implies a poor quality data set. SIGNIFICANT CHANGE FROM PRIOR EXAM: Significant change if liver stiffness measurement is 10% or greater from prior exam. OTHER CONSIDERATIONS: The stage of liver fibrosis may be overestimated in the setting of acute hepatitis, liver inflammation, elevated liver function tests, hepatic vascular congestion, obstructive cholestasis, non-fasting state, and infiltrative diseases such as amyloidosis and lymphoma. In some patients with NAFLD, the liver stiffness thresholds for compensated advanced chronic liver disease may be lower. In causes other than viral hepatitis and NAFLD, liver stiffness thresholds are not well established. Electronically signed by: Checo Bronson MD 01/09/2025 07:13 AM EDT RP Discharge Plan Discharge Anticipated Discharge Date/Time: 01/09/25 12:36 Patient Disposition: Home, Self-Care Discharge Diagnosis: anemia due to GI bleed Referrals: Vini Mendoza MD [Primary Care Provider, Medical] - 1 Week Leo Guo MD [Physician, Gastroenterology] - 2 Weeks Discharge Medications: Continued omeprazole 20 mg capsule,delayed release(DR/EC) 20 mg PO BID@0630,1630 metoprolol tartrate 25 mg tablet 12.5 mg PO BID Ozempic 2 mg/dose (8 mg/3 mL) pen injector 2 mg subcut SA atorvastatin 40 mg tablet 40 mg PO DAILY acetaminophen 325 mg Tablet 325 mg PO QID PRN (Reason: Pain) gabapentin 100 mg capsule 100 mg PO TID PRN (Reason: Pain) emollient Liquid 1 ea TOPICAL Q12H Rx Instructions: Apply to wound fluticasone propionate 50 mcg/actuation spray,suspension 1 spray intranasal BID montelukast 10 mg tablet 10 mg PO DAILY metformin 1,000 mg tablet 1,000 mg PO BID aspirin [Adult Low Dose Aspirin] 81 mg tablet,delayed release (DR/EC) 81 mg PO DAILY finasteride [Proscar] 5 mg tablet 5 mg PO DAILY 90 Days Qty: 90 3RF Diet: Advance to usual diet Activity on Discharge: As tolerated Stand Alone Forms: Patient Portal Discharge page Print Language: Nam[place] Care Plan Goals: recovery from GI bleed Health Concerns: anemia due to GI bleed Plan of Treatment: follow up with [place] Gu[place] [facility] [place] 2 [place] Please follow up with your primary care doctor within 1 week. Return to the hospital if you experience recurrent or worsening symptoms. Assessment: See Discharge Summary.
--- NOTE | 2025-01-09 14:09 | MHC.SHP ---
Pre-Procedural Eval Section A - 24 Hr Update-Section A only Date of Service: 01/09/25 The patient is an INPATIENT: Yes The patient has been examined within 24 hours of the surgical procedure. The History & Physical has been completed within 30 days and I have reviewed it.: Yes Section B - Complete if H&P > 30 days Chief Complaint: GI Bleeding Allergies: Allergies Allergy/AdvReac Type Severity Reaction Status Date / Time No Known Allergies (No Known Allergy Verified 01/06/25 08:02 Allergies*) Plan I have reviewed the history and physical and performed a pertinent physical examination on my patient. No changes have occurred unless specified. Time Spent With Patient Time: Total time managing care of this patient today ____ minutes.
--- NOTE | 2025-01-09 14:42 | P.BOP_ITS ---
Brief Operative Note Date of Service: 01/09/25 Pre-op diagnosis: GI Bleed Post-op diagnosis: other (Chronic gastritis, Hiatal hernia, R/O Celiac disease) Procedure: EGD with biopsies Surgeon: Leo Guo MD Anesthesia: MAC Was an Super[employer] used for this Procedure?: No Estimated blood loss (mL): 2.0 Pathology: other (A. 2nd/3rd portions of duodenum B. Gastric antrum) Condition: stable Disposition: PACU
--- NOTE | 2025-01-09 15:02 | PM.EVENT ---
Event Note Date of Service: 01/09/25 Event Note: GI-EGD-Full note dictated Findings: 1. Chronic appearing gatritis, but no erosions, ulcers, nor bleeding--biopsies taken from gastric antrum 2. Duodenum WNL-biopsies taken to R/O Celiac disease 3. Small hiatal hernia Rec: Plan for colonoscopy on 01/10/25. Change to po PPI. Orders placed for diet and prep. Hold aspirin today and resume after colonoscopy tomorrow. F/U labs in AM. D/W patient and his significant other, Mini. They are both comfortable with the plan. Thanks Time Spent With Patient Time: Total time managing care of this patient today ____ minutes.
--- NOTE | 2025-01-09 15:34 | HO.PM.IMPN ---
Subjective Subjective Date of Service: 01/09/25 Interval History: had black stool no abd pain no chest pain EGD done today Review of Systems Review of Systems: Yes all other systems are reviewed and are negative Physical Exam Vital Signs: Vital Signs: Last Vital Signs Temp 98.7 F 01/09/25 15:03 Pulse 83 01/09/25 15:03 Resp 18 01/09/25 15:03 BP 126/76 01/09/25 15:03 Pulse Ox 94 01/09/25 15:03 O2 Del Method Room Air 01/09/25 15:03 BMI result Body Mass Index 25.8 Gen: in no acute distress HEENT: sclera anicteric, moist mucus membranes Neck: supple Lungs: diminished L base Heart: regular rate and rhythm, no murmurs Abd: soft, non-tender, non-distended Ext: no edema Skin: warm/well-perfused Neuro: alert and oriented x3, no focal findings Psych: appropriate affect Objective Data Active Medications Acetaminophen (Acetaminophen 325 Mg Tablet) 650 mg PO Q6H PRN PRN Reason: Pain, Mild 1-3,fever,headache Atorvastatin Calcium (Atorvastatin Calcium 40 Mg Tablet) 40 mg PO DAILY [facility] Last Admin: 01/09/25 08:40 Dose: 40 mg Documented By: JEN Bisacodyl (Bisacodyl 5 Mg Tablet.Dr) 10 mg PO ONCE ONE Stop: 01/09/25 18:01 Calcium Carbonate (Calcium Carbonate 750 Mg Tab.Chew) 750 mg PO Q4H PRN PRN Reason: Heartburn Dextrose (Dextrose 50 % 25 Gm/50 Ml Syringe) 25 gm IVPUSH Q15M PRN; Protocol PRN Reason: per Hypoglycemia Standing Ord. Finasteride (Finasteride 5 Mg Tablet) 5 mg PO DAILY [facility] Last Admin: 01/09/25 08:41 Dose: 5 mg Documented By: JEN Fluticasone Propionate (Fluticasone Propionate Nasal 16 Gm [place]) 1 spray NOSTRIL-B BID [facility] Last Admin: 01/09/25 08:42 Dose: Not Given Documented By: JEN Non-Admin Reason: Patient Refused Gabapentin (Gabapentin 100 Mg Capsule) 100 mg PO TID PRN PRN Reason: Pain, Moderate(Pain Scale 4-6) Glucose (Glucose Gel 15 Gm Gel..Gram.) 15 gm PO Q15M PRN; Protocol PRN Reason: per Hypoglycemia Standing Ord. Insulin Human Lispro (Insulin Lispro 100 Unit/Ml 3 Ml Vial) 0 unit SUBCUT QIDACHS [facility]; Protocol Last Admin: 01/09/25 11:58 Dose: Not Given Documented By: JEN Non-Admin Reason: No Insulin Coverage Magnesium Hydroxide (Milk Of Magnesia 30 Ml Oral.Susp) 30 ml PO DAILY PRN PRN Reason: Constipation Melatonin (Melatonin 3 Mg Tablet) 6 mg PO BEDTIME PRN PRN Reason: Insomnia Metoprolol Tartrate (Metoprolol Tartrate 12.5 Mg Halftab) 12.5 mg PO BID [facility]; Protocol Last Admin: 01/09/25 08:40 Dose: 12.5 mg Documented By: JEN Montelukast Sodium (Montelukast Sodium 10 Mg Tablet) 10 mg PO DAILY [facility] Last Admin: 01/09/25 08:41 Dose: 10 mg Documented By: JEN Naloxone HCl (Naloxone Hcl 0.4 Mg/Ml Vial) 0.04 mg IVPUSH Q5M PRN PRN Reason: Excessive sedation or RR < 8 Omeprazole (Omeprazole 20 Mg Capsule.Dr) 20 mg PO DAILY@0630 [facility] Polyethylene Glycol/Electrolytes (Peg 3350/Na Sulf,Bicarb,Cl/Kcl 4,000 Ml Soln.Recon) 240 ml PO Q10M [facility] Stop: 01/09/25 18:41 Sodium Biphosphate/Sodium Phosphate (Sodium Phosphate,[place]-Dibasic 133 Ml Enema) 133 ml SC ONCE PRN PRN Reason: Poor Colonoscopy Prep Results Sodium Chloride (0.9 % Sodium Chloride Flush 3 Ml Syringe) 3 ml IVFLUSH QSHIFT [facility] Last Admin: 01/09/25 08:43 Dose: 3 ml Documented By: JEN Labs 01/09/25 07:18 01/08/25 07:05 Labs: Laboratory Results - last 24 hr 01/08/25 01/08/25 01/09/25 16:11 20:10 07:11 MCV MCH MCHC RDW Plt Count MPV Immature Gran % (Auto) Neut % (Auto) Lymph % (Auto) [place] % (Auto) Eos % (Auto) Baso % (Auto) Lymph # (Auto) [place] # (Auto) Eos # (Auto) Baso # (Auto) Abs Immat Gran (auto) Absolute Neuts (auto) Absolute Nucleated RBC Nucleated RBC % (auto) POC Glucose 99 137 H 100 01/09/25 01/09/25 07:18 11:37 MCV 80.4 MCH 24.7 L MCHC 30.7 L RDW 18.6 H Plt Count 198 MPV 11.0 Immature Gran % (Auto) 0.3 Neut % (Auto) 57.3 Lymph % (Auto) 23.4 [place] % (Auto) 8.4 Eos % (Auto) 9.9 H Baso % (Auto) 0.7 Lymph # (Auto) 1.4 [place] # (Auto) 0.5 Eos # (Auto) 0.6 H Baso # (Auto) 0.0 Abs Immat Gran (auto) 0.02 Absolute Neuts (auto) 3.5 Absolute Nucleated RBC 0.000 Nucleated RBC % (auto) 0.0 POC Glucose 98 Assessment and Plan (1) GI bleed: Status: Acute Plan d4, 84yo M with CAD s/p CABG + MAZE 12/09/24, HTN, HLD, BPH, DM2; presenting with weakness + dark stools, found to have anemia, FOBT+ subacute anemia from GI blood loss - H+H stable after 2u pRBCs and holding apixaban - GI consulted, IV PPI, EGD today by Dr Guo showing chronic gastritis, hiatal hernia; biopsies done; plan prep for colonoscopy tomorrow CAD s/p CABG 12/09/24 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 Quality Stroke Does the patient have a stroke diagnosis?: No VTE Prior VTE?: No VTE Risk Level:: Medical - moderate - high VTE Device Contraindication: N/A - Device Ordered VTE Drug Contraindication: Treatment Not Indicated
--- NOTE | 2025-01-09 15:40 | P.CDIM_ITS ---
PROVIDER RESPONSE TEXT: To clarify, the appropriate diagnosis supported by the clinical indicators: Other (explain): subacute blood loss anemia QUERY TEXT: PHYSICIAN'S DOCUMENTATION REQUEST Date of Query: 01/09/2025 12:10 PM EDT Patient Name: Deacon Romo Admit Date: 01/06/2025 Dear Krishna Lemon MD, A review of the medical record indicates additional documentation may be needed. Please review below and update the documentation accordingly. Clinical Indicators: Progress note 01/08/25 - Subacute anemia from GI blood loss. GI consulted, IV PPI H&H 7.7/25.5, stable after 2 units PRBC's. BP 114/49 L Fatigued and weakness, dark stools, difficulty in walking. PMH: Anemia Clarify which of the following accurately represents the acuity of the subacute anemia: Possible options might include: Acute Acute on chronic Other specified Other (explain) Clinically unable to determine (explain) Thank you, Aileen Londono, CCS, CDIS Use of terms such as suspected, likely, concern for, or probable (associated with a specific diagnosis that is being evaluated, monitored, or treated as if it exists) are acceptable and can be coded in the inpatient setting, when documented at the time of discharge. Please use your independent medical judgment in providing your response. THIS QUERY IS PART OF THE PERMANENT MEDICAL RECORD
--- NOTE | 2025-01-09 16:01 | MHC.CM.PN ---
EMR REVIEWED, PT W/GI BLEED, UPPER ENDOSCOPY COMPLETED TODAY, PER GI PT WILL HAVE COLONOSCOPY TOMORROW 01/10 AND WILL CHANGE TO ORAL PPI, ANTIC HOME TOMORROW W/RESUMP OF HVNA, CM WILL CONT TO FOLLOW DC NEEDS.
[2025-01-09 16:23] LABS: Glucose, Whole Blood 122 mg/dL (60-115)
[2025-01-09] MEDS: PEG 3350/Na Sulf,Bicarb,Cl/KCL 4,000 ML SOLN.RECON 4000 ML PO (19:30)
[2025-01-09 20:43] LABS: Glucose, Whole Blood 139 mg/dL (60-115)
[2025-01-10] VITALS (7 sets, daily range): BP systolic 93–131; BP diastolic 57–80; PULSE 75–106; RESP 14–20; TEMP 36–36.6; O2SAT 94–99
--- NOTE | 2025-01-10 01:05 | OP_ITS ---
DATE OF SERVICE: 01/09/2025 SURGEON: Leo Guo MD INDICATIONS: The patient presents for evaluation of reported melena, anemia, and heme-positive stool. Full consent has been obtained from him for this, including risks of bleeding and perforation. PREOPERATIVE DIAGNOSIS: POSTOPERATIVE DIAGNOSIS: PROCEDURE PERFORMED: Esophagogastroduodenoscopy with biopsies. ESTIMATED BLOOD LOSS: COMPLICATIONS: ANESTHESIA: Medication used, monitored anesthesia care. ASSISTANTS: SPECIMENS: PREOPERATIVE DIAGNOSES: Anemia, heme-positive stool, and reported melena. POSTOPERATIVE DIAGNOSES: Anemia, heme-positive stool, and reported melena, chronic appearing gastritis, small hiatal hernia, rule out celiac disease. DESCRIPTION OF PROCEDURE: The patient was placed in the left lateral decubitus position. The Olympus video gastroscope was passed in the posterior oropharynx and upper esophagus under direct vision. The scope was passed slowly into the distal esophagus. The gastroesophageal junction appeared at 39 cm. There was some slight irregularity but no evidence of any esophagitis nor any definitive Gonzalez mucosa. There was a small hiatal hernia. The scope was advanced to the pylorus, and the duodenum was cannulated to the descending portion. The duodenum including the bulb appeared normal without mass or ulceration. Biopsies were obtained from the 2nd and 3rd portions of duodenum. The scope was withdrawn back in the stomach. The gastric antrum and body had some mucosal changes of a chronic appearing gastritis with some erythema, edema, and some pallor. There was no evidence of any erosions nor ulceration. There was good peristalsis. The scope was retroflexed visualizing the proximal stomach carefully with similar changes, but again no sign of any erosions, ulceration, nor mass. The scope was straightened. Biopsies were obtained from the gastric antrum. The scope was withdrawn back to the esophagus. The esophageal mucosa appeared normal. The scope was withdrawn from the patient. He tolerated the procedure well and was returned to the recovery area in stable condition. IMPRESSION: 1. Chronic appearing gastritis. 2. Rule out celiac disease. 3. Small hiatal hernia. PLAN: The results of the biopsies will be checked. Given his use of Plavix, Eliquis, and low-dose aspirin after his surgery in November. He may very well have had some bleeding from the upper GI tract that has now resolved since he stopped those medications other than the aspirin. However, given no definitive cause of his anemia on today's exam, I would recommend a followup colonoscopy tomorrow as he is just about due for that anyway as he had a colonoscopy last year with removal of multiple polyps. That will be scheduled for him tomorrow. MD DAYNA Lisa/SVETLANA / [phone]
[2025-01-10 06:17] LABS: MANUAL DIFF FLAG NO
[2025-01-10 06:46] LABS: Anion Gap 11 (12-20); Blood Urea Nitrogen 7 mg/dL (9-16); Calcium 8.0 mg/dL (8.4-10.2); Carbon Dioxide 26 mmol/L (22-29); Chloride 112 mmol/L (96-108); Creatinine Clr Calc Pharmacy 60.1; Estimated Glomerular Filt Rate > 60; Potassium 3.8 mmol/L (3.3-5.1); Sodium 145 mmol/L (135-145)
[2025-01-10 06:52] LABS: Hematocrit 28.0 % (42.0-52.0); Hemoglobin 8.8 g/dl (14.0-18.0); Imm Gran Abs Auto 0.03 X10*3/uL (0.00-0.03); Imm Gran Pct Auto 0.6 % (0.0-0.4); Lymphocytes Absolute Auto 1.3 X10*3/uL (1.2-4.9); Mean Corpuscular HGB Conc 31.4 g/dl (31.0-36.0); Mean Corpuscular Hemoglobin 25.0 pg (27.0-33.0); Mean Corpuscular Volume 79.5 fL (80.0-98.0); NRBC Abs Auto 0.000 X10*3/uL (0.0-0.012); NRBC Pct Auto 0.0 /100WBC (0.0-0.2); Platelet Count 179 X10*3/uL (160-400); Red Blood Count 3.52 X10*6/uL (4.60-5.80); White Blood Count 4.9 X10*3/uL (4.8-10.8)
[2025-01-10 07:01] LABS: Glucose, Whole Blood 97 mg/dL (60-115)
--- NOTE | 2025-01-10 08:11 | HO.POSTANES ---
Post Anesthesia Evaluation Post Anesthesia Evaluation Date of Service: 01/10/25 Vital Signs: Vital Signs Temp Pulse Resp BP Pulse Ox O2 Del Method 01/10/25 07:21 96.9 F 83 20 123/73 97 Room Air 01/10/25 03:05 96.8 F 76 16 113/65 98 Room Air 01/09/25 23:09 97.6 F 81 16 111/63 99 Room Air Anesthesia: Monitored Mental Status: Awake Pain Control: Satisfactory Nausea/Vomiting: None Hydration: Adequate Anesthesia-Related Issues: No Anes. Related Issues
[2025-01-10] MEDS: 0.9 % Sodium Chloride Flush 3 ML SYRINGE IVFLUSH ×2 (08:42→15:09)
[2025-01-10] MEDS: Metoprolol Tartrate 12.5 MG HALFTAB PO (08:42)
[2025-01-10 10:57] LABS: Glucose, Whole Blood 95 mg/dL (60-115)
--- NOTE | 2025-01-10 12:09 | P.CONAN_ITS ---
HPI - Anesthesia Eval Consult details Narrative: For colonoscopy [facility] Active Problems Active Problems: All Active Problems Atrial fibrillation (Acute) CAD (coronary artery disease) (Acute) Anemia due to GI blood loss (Acute) Acute blood loss anemia (Acute) GI bleed (Acute) BPH loc w urin obs/LUTS (Acute) Screening PSA (prostate specific antigen) (Acute) Candidal balanitis (Acute) BPH (benign prostatic hyperplasia) (Acute) Gross hematuria (Acute) Past Medical History Medical History CAD (coronary artery disease) Elevated cholesterol Seasonal allergies Diabetes Basal cell carcinoma (BCC) Family History Family History Mother No problems noted. Father No problems noted. Family history of problems with anesthesia: No Surgical History Surgical History H/O maze procedure Failed CABG (coronary artery bypass graft) History of transurethral resection of bladder tumor (TURBT) History of biopsy of bladder Hx of colonoscopy Hx of cystoscopy History of Problems with Anesthesia: No Social History Social History Household Members: Significant Other Housing: House Are you a primary healthcare educator to a significant other at home: No Do you presently have visiting nurse or other home services: No Alcohol intake: current Alcohol intake frequency: does not drink Patient Tobacco Use Status: Former Tobacco user Advance Directives Date on File: 01/07/25 service: Yes Meds Allergies Allergy/AdvReac Type Severity Reaction Status Date / Time No Known Allergies (No Known Allergy Verified 01/06/25 08:02 Allergies*) Active Medications: Current Medications Acetaminophen (Acetaminophen 325 Mg Tablet) 650 mg PO Q6H PRN PRN Reason: Pain, Mild 1-3,fever,headache Atorvastatin Calcium (Atorvastatin Calcium 40 Mg Tablet) 40 mg PO DAILY LEOBARDO Last Admin: 01/10/25 08:41 Dose: 40 mg Calcium Carbonate (Calcium Carbonate 750 Mg Tab.Chew) 750 mg PO Q4H PRN PRN Reason: Heartburn Dextrose (Dextrose 50 % 25 Gm/50 Ml Syringe) 25 gm IVPUSH Q15M PRN; Protocol PRN Reason: per Hypoglycemia Standing Ord. Finasteride (Finasteride 5 Mg Tablet) 5 mg PO DAILY [facility] Last Admin: 01/10/25 08:41 Dose: 5 mg Fluticasone Propionate (Fluticasone Propionate Nasal 16 Gm [place]) 1 spray NOSTRIL-B BID [facility] Last Admin: 01/10/25 08:43 Dose: Not Given Gabapentin (Gabapentin 100 Mg Capsule) 100 mg PO TID PRN PRN Reason: Pain, Moderate(Pain Scale 4-6) Glucose (Glucose Gel 15 Gm Gel..Gram.) 15 gm PO Q15M PRN; Protocol PRN Reason: per Hypoglycemia Standing Ord. Insulin Human Lispro (Insulin Lispro 100 Unit/Ml 3 Ml Vial) 0 unit SUBCUT QIDACHS [facility]; Protocol Last Admin: 01/10/25 08:44 Dose: Not Given Magnesium Hydroxide (Milk Of Magnesia 30 Ml Oral.Susp) 30 ml PO DAILY PRN PRN Reason: Constipation Melatonin (Melatonin 3 Mg Tablet) 6 mg PO BEDTIME PRN PRN Reason: Insomnia Metoprolol Tartrate (Metoprolol Tartrate 12.5 Mg Halftab) 12.5 mg PO BID [facility]; Protocol Last Admin: 01/10/25 08:42 Dose: 12.5 mg Montelukast Sodium (Montelukast Sodium 10 Mg Tablet) 10 mg PO DAILY [facility] Last Admin: 01/10/25 08:41 Dose: 10 mg Naloxone HCl (Naloxone Hcl 0.4 Mg/Ml Vial) 0.04 mg IVPUSH Q5M PRN PRN Reason: Excessive sedation or RR < 8 Omeprazole (Omeprazole 20 Mg Capsule.Dr) 20 mg PO DAILY@0630 [facility] Last Admin: 01/10/25 06:33 Dose: 20 mg Sodium Biphosphate/Sodium Phosphate (Sodium Phosphate,[place]-Dibasic 133 Ml Enema) 133 ml MO ONCE PRN PRN Reason: Poor Colonoscopy Prep Results Sodium Chloride (0.9 % Sodium Chloride Flush 3 Ml Syringe) 3 ml IVFLUSH QSHIFT [facility] Last Admin: 01/10/25 08:42 Dose: 3 ml Home Medications ?Medication ?Instructions ?Recorded ?Confirmed ?Last Taken ?Type aspirin 81 mg tablet,delayed 81 mg PO DAILY 01/12/23 0 01/06/25 01/06/25 History release (Adult Low Dose Aspirin) fluticasone propionate 50 1 spray intranasal BID 01/1201/06/25 01/06/25 History mcg/actuation nasal spray,suspension metformin 1,000 mg tablet 1,000 mg PO BID 01/12/2301/2301/06/25 History montelukast 10 mg tablet 10 mg PO DAILY 01/12/2301/2301/06/25 History acetaminophen 325 mg tablet 325 mg PO QID PRN Pain 01/2301/06/25 Unknown History atorvastatin 40 mg tablet 40 mg PO DAILY 01/06/2501/2301/06/25 History emollient 1 ea topical Q12H 01/06/25 0 01/06/25 01/06/25 History gabapentin 100 mg capsule 100 mg PO TID PRN Pain 01/0601/06/25 Unknown History metoprolol tartrate 25 mg tablet 12.5 mg PO BID 01/06/25 01/06/25 History omeprazole 20 mg capsule,delayed 20 mg PO BID@0630,163 0 01/06/25 01/06/25 01/06/25 History release semaglutide 2 mg/dose (8 mg/3 mL) 2 mg subcut SA 01/0601/06/25 12/31/24 History subcutaneous pen injector (Ozempic) Exam Height,Weight and Vital Signs: Height 5 ft 10 in Weight 81.647 kg Last Vital Signs Temp 97.9 F 01/10/25 11:25 Pulse 79 01/10/25 11:25 Resp 17 01/10/25 11:25 BP 131/79 01/10/25 11:25 Pulse Ox 98 01/10/25 11:25 O2 Del Method Room Air 01/10/25 11:25 Pertinent Lab Results Pertinent Lab Results: Laboratory Tests 01/06/25 01/06/25 01/06/25 08:17 09:19 12:23 WBC 8.5 RBC 3.13 L Hgb 7.6 L Hct 24.9 L MCV 79.6 L MCH 24.3 L MCHC 30.5 L RDW 18.6 H Plt Count 299 MPV 10.7 Immature Gran % (Auto) 0.5 H Neut % (Auto) 64.3 Lymph % (Auto) 19.4 L [place] % (Auto) 8.4 Eos % (Auto) 6.7 H Baso % (Auto) 0.7 Lymph # (Auto) 1.6 [place] # (Auto) 0.7 Eos # (Auto) 0.6 H Baso # (Auto) 0.1 Abs Immat Gran (auto) 0.04 H Absolute Neuts (auto) 5.4 Absolute Nucleated RBC 0.000 Nucleated RBC % (auto) 0.0 PT 14.1 H INR 1.2 H Sodium 141 Potassium 4.6 Chloride 106 Carbon Dioxide 22 Anion Gap 18 BUN 21 H Creatinine 0.92 Estim Creat Clear Calc 62.8 Estimated GFR > 60 POC Glucose 93 Random Glucose 138 H Fasting Glucose Calcium 8.7 Magnesium 1.8 Total Bilirubin 1.3 H Direct Bilirubin 0.5 AST 62 H ALT 133 H Alkaline Phosphatase 190 H Total Protein 6.2 L Albumin 3.7 Stool Occult Blood POSITIVE Blood Type A Positive Antibody Screen NEGATIVE Crossmatch See Detail 01/06/25 01/06/25 01/07/25 16:57 20:22 05:48 WBC 5.7 RBC 3.01 L Hgb 7.5 L Hct 23.9 L MCV 79.4 L MCH 24.9 L MCHC 31.4 RDW 18.0 H Plt Count 185 D MPV 10.6 Immature Gran % (Auto) Neut % (Auto) Lymph % (Auto) [place] % (Auto) Eos % (Auto) Baso % (Auto) Lymph # (Auto) [place] # (Auto) Eos # (Auto) Baso # (Auto) Abs Immat Gran (auto) Absolute Neuts (auto) Absolute Nucleated RBC 0.000 Nucleated RBC % (auto) 0.0 PT INR Sodium 139 Potassium 3.8 Chloride 107 Carbon Dioxide 24 Anion Gap 12 BUN 16 Creatinine 0.92 Estim Creat Clear Calc 62.8 Estimated GFR > 60 POC Glucose 83 98 Random Glucose 97 Fasting Glucose Calcium 8.1 L D Magnesium Total Bilirubin 1.7 H Direct Bilirubin 0.5 AST 43 H ALT 91 H Alkaline Phosphatase 152 H Total Protein 5.2 L Albumin 3.0 L Stool Occult Blood Blood Type Antibody Screen Crossmatch 01/07/25 01/07/25 01/07/25 07:48 12:54 16:22 WBC RBC Hgb Hct MCV MCH MCHC RDW Plt Count MPV Immature Gran % (Auto) Neut % (Auto) Lymph % (Auto) [place] % (Auto) Eos % (Auto) Baso % (Auto) Lymph # (Auto) [place] # (Auto) Eos # (Auto) Baso # (Auto) Abs Immat Gran (auto) Absolute Neuts (auto) Absolute Nucleated RBC Nucleated RBC % (auto) PT INR Sodium Potassium Chloride Carbon Dioxide Anion Gap BUN Creatinine Estim Creat Clear Calc Estimated GFR POC Glucose 91 123 H 123 H Random Glucose Fasting Glucose Calcium Magnesium Total Bilirubin Direct Bilirubin AST ALT Alkaline Phosphatase Total Protein Albumin Stool Occult Blood Blood Type Antibody Screen Crossmatch 01/07/25 01/08/25 01/08/25 20:38 06:51 07:05 WBC 5.8 RBC 3.56 L Hgb 8.7 L Hct 28.3 L MCV 79.5 L MCH 24.4 L MCHC 30.7 L RDW 18.4 H Plt Count 185 MPV 10.5 Immature Gran % (Auto) Neut % (Auto) Lymph % (Auto) [place] % (Auto) Eos % (Auto) Baso % (Auto) Lymph # (Auto) [place] # (Auto) Eos # (Auto) Baso # (Auto) Abs Immat Gran (auto) Absolute Neuts (auto) Absolute Nucleated RBC 0.000 Nucleated RBC % (auto) 0.0 PT INR Sodium 140 Potassium 4.1 Chloride 108 Carbon Dioxide 26 Anion Gap 10 L BUN 13 Creatinine 1.08 Estim Creat Clear Calc 53.5 Estimated GFR > 60 POC Glucose 135 H 116 H Random Glucose 125 H Fasting Glucose Calcium 8.0 L Magnesium Total Bilirubin 1.6 H Direct Bilirubin AST 49 H ALT 77 H Alkaline Phosphatase 147 H Total Protein 5.2 L Albumin 3.0 L Stool Occult Blood Blood Type Antibody Screen Crossmatch 01/08/25 01/08/25 01/08/25 10:52 16:11 20:10 WBC RBC Hgb Hct MCV MCH MCHC RDW Plt Count MPV Immature Gran % (Auto) Neut % (Auto) Lymph % (Auto) [place] % (Auto) Eos % (Auto) Baso % (Auto) Lymph # (Auto) [place] # (Auto) Eos # (Auto) Baso # (Auto) Abs Immat Gran (auto) Absolute Neuts (auto) Absolute Nucleated RBC Nucleated RBC % (auto) PT INR Sodium Potassium Chloride Carbon Dioxide Anion Gap BUN Creatinine Estim Creat Clear Calc Estimated GFR POC Glucose 134 H 99 137 H Random Glucose Fasting Glucose Calcium Magnesium Total Bilirubin Direct Bilirubin AST ALT Alkaline Phosphatase Total Protein Albumin Stool Occult Blood Blood Type Antibody Screen Crossmatch 01/09/25 01/09/25 01/09/25 07:11 07:18 11:37 WBC 6.1 RBC 3.73 L Hgb 9.2 L Hct 30.0 L MCV 80.4 MCH 24.7 L MCHC 30.7 L RDW 18.6 H Plt Count 198 MPV 11.0 Immature Gran % (Auto) 0.3 Neut % (Auto) 57.3 Lymph % (Auto) 23.4 [place] % (Auto) 8.4 Eos % (Auto) 9.9 H Baso % (Auto) 0.7 Lymph # (Auto) 1.4 [place] # (Auto) 0.5 Eos # (Auto) 0.6 H Baso # (Auto) 0.0 Abs Immat Gran (auto) 0.02 Absolute Neuts (auto) 3.5 Absolute Nucleated RBC 0.000 Nucleated RBC % (auto) 0.0 PT INR Sodium Potassium Chloride Carbon Dioxide Anion Gap BUN Creatinine Estim Creat Clear Calc Estimated GFR POC Glucose 100 98 Random Glucose Fasting Glucose Calcium Magnesium Total Bilirubin Direct Bilirubin AST ALT Alkaline Phosphatase Total Protein Albumin Stool Occult Blood Blood Type Antibody Screen Crossmatch 01/09/25 01/09/25 01/10/25 16:17 20:39 06:10 WBC 4.9 RBC 3.52 L Hgb 8.8 L Hct 28.0 L MCV 79.5 L MCH 25.0 L MCHC 31.4 RDW 18.5 H Plt Count 179 MPV 11.0 Immature Gran % (Auto) 0.6 H Neut % (Auto) 53.4 Lymph % (Auto) 27.2 [place] % (Auto) 8.9 Eos % (Auto) 9.1 H Baso % (Auto) 0.8 Lymph # (Auto) 1.3 [place] # (Auto) 0.4 Eos # (Auto) 0.4 Baso # (Auto) 0.0 Abs Immat Gran (auto) 0.03 Absolute Neuts (auto) 2.6 Absolute Nucleated RBC 0.000 Nucleated RBC % (auto) 0.0 PT INR Sodium 145 Potassium 3.8 Chloride 112 H Carbon Dioxide 26 Anion Gap 11 L BUN 7 L Creatinine 0.96 Estim Creat Clear Calc 60.1 Estimated GFR > 60 POC Glucose 122 H 139 H Random Glucose Fasting Glucose 95 Calcium 8.0 L Magnesium Total Bilirubin Direct Bilirubin AST ALT Alkaline Phosphatase Total Protein Albumin Stool Occult Blood Blood Type Antibody Screen Crossmatch 01/10/25 01/10/25 06:54 10:53 WBC RBC Hgb Hct MCV MCH MCHC RDW Plt Count MPV Immature Gran % (Auto) Neut % (Auto) Lymph % (Auto) [place] % (Auto) Eos % (Auto) Baso % (Auto) Lymph # (Auto) [place] # (Auto) Eos # (Auto) Baso # (Auto) Abs Immat Gran (auto) Absolute Neuts (auto) Absolute Nucleated RBC Nucleated RBC % (auto) PT INR Sodium Potassium Chloride Carbon Dioxide Anion Gap BUN Creatinine Estim Creat Clear Calc Estimated GFR POC Glucose 97 95 Random Glucose Fasting Glucose Calcium Magnesium Total Bilirubin Direct Bilirubin AST ALT Alkaline Phosphatase Total Protein Albumin Stool Occult Blood Blood Type Antibody Screen Crossmatch Airway Mallampati Class: II TM Dist: <=3cm Neck ROM: Full Loose/Missing/Broken Teeth: No Heart: ok. see above; see anesth preop note from yesterday's EGD. Lungs: ok Assessment and Plan Assessment Anesthesia Assessment: Anesthesia Plan Discussed and Chart Reviewed Final Anesthetic Review Family History of Problems with Anesthesia: No History of Problems with Anesthesia: No NPO: Yes ASA Class: II Final Preanesthetic Review: No Changes in Pt Med Stat, Meds/Allgs Chart Reviewed, Consent Obtained/Reviewed and Anes Risks/Benef Reviewed Patient Risk: Intermediate Procedure Risk: Low Anesthetic Plan Anesthetic Plan: MAC: and Agree w/ Assess. and Plan Disposition: Standard PACU
--- NOTE | 2025-01-10 12:10 | MHC.SHP ---
Pre-Procedural Eval Section A - 24 Hr Update-Section A only Date of Service: 01/10/25 The patient is an INPATIENT: Yes Changes since office visit: No Cold of Flu in the past 2 weeks, No New Medical Problems, No Changes in Medication and No Patient answered all questions The patient has been examined within 24 hours of the surgical procedure. The History & Physical has been completed within 30 days and I have reviewed it.: Yes Section B - Complete if H&P > 30 days Chief Complaint: GI Bleeding Allergies: Allergies Allergy/AdvReac Type Severity Reaction Status Date / Time No Known Allergies (No Known Allergy Verified 01/06/25 08:02 Allergies*) Plan I have reviewed the history and physical and performed a pertinent physical examination on my patient. No changes have occurred unless specified. Time Spent With Patient Time: Total time managing care of this patient today ____ minutes.
--- NOTE | 2025-01-10 12:48 | PM.EVENT ---
Event Note Date of Service: 01/10/25 Event Note: Colonoscopy 8mm polyp at 70 cm snared no bleeding ok to resume asa Time Spent With Patient Time: Total time managing care of this patient today ____ minutes.
[2025-01-10] MEDS: Aspirin Enteric Coated 81 MG TABLET.DR PO (15:08)
--- NOTE | 2025-01-10 15:40 | PM.DS ---
DS: Providers Provider Date of Service: 01/10/25 Date of admission: 01/06/25 10:48 Date of discharge: 01/10/25 Primary care physician: Vini Mendoza MD Consults: 01/06/25 10:50 Consult to Gastroenterology Routine Consulting Provider: Leo Guo Reason for consultation: symptomatic anemia, hemt + stool Has provider been notified: No DS: Diagnosis Discharge Diagnosis (1) GI bleed: Status: Acute DS: Summary Hospital Course Hospital Course: From the history and physical by the admitting hospitalist, ERROL Diaz, 01/06/25: This is an 84-year-old male who underwent triple bypass at [facility] on December 09 who presents to the emergency department with generalized weakness. Ten days after his surgery he developed dark stools and his Eliquis and Plavix were discontinued and he was started on baby aspirin. Over the past 4-5 days he has had generalized weakness. His PCP has been following his H/H which has been lower than previous but has remained stable. December 22 his H/H was 9.2/30.2, December 29 it dropped to 7.8/26.7. Over the past 2 days he states he had severe weakness and fatigue and had difficulty even ambulating into the emergency department due to severe fatigue. He denies dizziness, shortness of breath, chest pain. In the emergency department his H/H was 7.6/24.9, similar to yesterday, stool was brown but Hemoccult positive. Patient denies use of alcohol or any other NSAIDs. Patient will be admitted for management of symptomatic anemia 84yo M with CAD s/p CABG + MAZE 12/09/24, HTN, HLD, BPH, DM2; presenting with weakness + dark stools, found to have anemia, FOBT+; admitted to the telemetry unit. Hospital course by problem: subacute anemia from GI blood loss - GI consulted, IV PPI given, 2u pRBCs transfused with adequate response, ASA was held; apixaban and Plavix have been held since December 16. EGD 01/09/[address] Guo showed: No active bleeding, but chronic appearing gastritis; rule out celiac disease and small hiatal hernia. Pt then underwent colonoscopy with Dr. Justin on 01/10/2025 that found no active bleeding and an 8 mm polyp at 70 cm that was snared. He will follow up with Dr Guo in 2 weeks for biopsy results. Pt should resume aspirin and discharge and continue to hold Plavix and Eliquis until sees cardiology outpatient. 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 For incidental pleural effusion found on imaging, probably postoperative. pt asymptomatic. No additional workup or treatment indicated at this time For paroxysmal AFib s/p MAZE 12/09/24, continue metoprolol; continue to hold apixaban as above For CAD s/p CABG 12/09/2024, continue atorvastatin and aspirin; continue to hold Plavix as above For BPH continue finasteride For [id number] type 2 diabetes continue metformin and semaglutide Time Attestation Discharge Coordination Time (in mins): 35 Quality: Safe Use of Opioids Does Pt have an Active Cancer Diagnosis on the Problem List?: No Quality: Stroke Does the patient have a stroke diagnosis?: No Physical Exam Exam: Exam: General: AOx3, no acute distress Resp: CTA bilaterally CVS: S1, S2, RRR GI: +BS, NT, no distention Skin: Warm, dry Neuro: Cranial nerves II-XII grossly intact bilaterally. Motor grossly intact bilaterally Extremities: No edema Psych: Appropriate affect Vital Signs: Vital Signs: Last Vital Signs Temp 97.2 F 01/10/25 13:05 Pulse 75 01/10/25 13:05 Resp 14 01/10/25 13:05 BP 111/60 01/10/25 13:05 Pulse Ox 99 01/10/25 13:05 O2 Del Method Room Air 01/10/25 13:05 BMI result Body Mass Index 25.8 DS: Data Data Completed and Pending Pending studies at discharge: Pending at discharge 01/09/25 14:18 Surgical [PTH] Routine 01/10/25 12:37 Surgical [PTH] Routine Labs on day of discharge: Laboratory Results - last 24 hr 01/09/25 01/09/25 01/10/25 16:17 20:39 06:10 WBC 4.9 RBC 3.52 L Hgb 8.8 L Hct 28.0 L MCV 79.5 L MCH 25.0 L MCHC 31.4 RDW 18.5 H Plt Count 179 MPV 11.0 Immature Gran % (Auto) 0.6 H Neut % (Auto) 53.4 Lymph % (Auto) 27.2 [place] % (Auto) 8.9 Eos % (Auto) 9.1 H Baso % (Auto) 0.8 Lymph # (Auto) 1.3 [place] # (Auto) 0.4 Eos # (Auto) 0.4 Baso # (Auto) 0.0 Abs Immat Gran (auto) 0.03 Absolute Neuts (auto) 2.6 Absolute Nucleated RBC 0.000 Nucleated RBC % (auto) 0.0 Sodium 145 Potassium 3.8 Chloride 112 H Carbon Dioxide 26 Anion Gap 11 L BUN 7 L Creatinine 0.96 Estim Creat Clear Calc 60.1 Estimated GFR > 60 POC Glucose 122 H 139 H Fasting Glucose 95 Calcium 8.0 L 01/10/25 01/10/25 06:54 10:53 WBC RBC Hgb Hct MCV MCH MCHC RDW Plt Count MPV Immature Gran % (Auto) Neut % (Auto) Lymph % (Auto) [place] % (Auto) Eos % (Auto) Baso % (Auto) Lymph # (Auto) [place] # (Auto) Eos # (Auto) Baso # (Auto) Abs Immat Gran (auto) Absolute Neuts (auto) Absolute Nucleated RBC Nucleated RBC % (auto) Sodium Potassium Chloride Carbon Dioxide Anion Gap BUN Creatinine Estim Creat Clear Calc Estimated GFR POC Glucose 97 95 Fasting Glucose Calcium Discharge Plan Discharge Anticipated Discharge Date/Time: 01/09/25 12:36 Patient Disposition: Home, Self-Care Discharge Diagnosis: anemia due to GI bleed Referrals: Vini Mendoza MD [Primary Care Provider, Medical] - 1 Week Leo Guo MD [Physician, Gastroenterology] - 2 Weeks Discharge Medications: Continued omeprazole 20 mg capsule,delayed release(DR/EC) 20 mg PO BID@0630,1630 metoprolol tartrate 25 mg tablet 12.5 mg PO BID Ozempic 2 mg/dose (8 mg/3 mL) pen injector 2 mg subcut SA atorvastatin 40 mg tablet 40 mg PO DAILY acetaminophen 325 mg Tablet 325 mg PO QID PRN (Reason: Pain) gabapentin 100 mg capsule 100 mg PO TID PRN (Reason: Pain) emollient Liquid 1 ea TOPICAL Q12H Rx Instructions: Apply to wound fluticasone propionate 50 mcg/actuation spray,suspension 1 spray intranasal BID montelukast 10 mg tablet 10 mg PO DAILY metformin 1,000 mg tablet 1,000 mg PO BID aspirin [Adult Low Dose Aspirin] 81 mg tablet,delayed release (DR/EC) 81 mg PO DAILY finasteride [Proscar] 5 mg tablet 5 mg PO DAILY 90 Days Qty: 90 3RF Discharge Orders: Discharge Order (Routine); Ordered 01/10/25 Ordered By: Hal Monroy Diet: Advance to usual diet Activity on Discharge: As tolerated Stand Alone Forms: Patient Portal Discharge page Print Language: Guamanian Care Plan Goals: recovery from GI bleed Health Concerns: anemia due to GI bleed Plan of Treatment: follow up with Dr Guo from [facility] Gastroenterology in 2 weeks continue to hold your Plavix and Eliquis; follow up with your protection specialist in 1-2 weeks to discuss about long-term use of these medications. Please follow up with your primary care doctor within 1 week. Return to the hospital if you experience recurrent or worsening symptoms. Assessment: See Discharge Summary. Discharge Date/Time: 01/10/25 17:31
--- NOTE | 2025-01-10 15:55 | MHC.CM.PN ---
Second IMM 01/10/25, Pt has been medically cleared to [place], he will go home via private transport, and resume services from [facility].
--- NOTE | 2025-01-11 10:45 | OP_ITS ---
DATE OF SERVICE: 01/10/2025 SURGEON: Cedrick Justin MD PREOPERATIVE DIAGNOSIS: POSTOPERATIVE DIAGNOSIS: PROCEDURE PERFORMED: Colonoscopy to the terminal ileum with snare polypectomy. ESTIMATED BLOOD LOSS: COMPLICATIONS: ANESTHESIA: Monitored anesthesia care. ASSISTANTS: SPECIMENS: INDICATION: Anemia. DESCRIPTION OF PROCEDURE: A History and Physical was performed. The risks and benefits of the procedure were explained to the patient and informed consent was obtained. The patient was placed in the left lateral decubitus position. A digital rectal exam was performed and was found to be normal. The Olympus pediatric colonoscope was introduced into the rectum and advanced to the cecum. The cecum was identified by transillumination, palpation, and identification of ileocecal valve. Examination was performed. The scope was removed. He tolerated the procedure well and was returned to recovery area in stable condition. FINDINGS: The terminal ileum was examined and appeared normal. The visualized colonic mucosa was normal. The quality of prep was good. There was a single polyp identified measuring approximately 8 mm. This was removed with a hot snare and recovered via suction. The polyp was located at 70 cm. No other polyps were identified. There was mild diverticulosis. No bleeding site was identified. Retroflexed examination showed some hypertrophic anal papillae and moderate-sized internal hemorrhoids. IMPRESSION: Colon polyp. RECOMMENDATIONS: 1. Follow up the biopsy results. 2. Aspirin may be resumed. 3. Monitor hematocrit. MD CARLEE Tirado/SVETLANA / [phone]
== END 2025-01-10 17:31 | disposition home or self-care (01) | DRG 379 ==
LOC: HO.ED 11:12 → HO.EDOVER 11:19 → HO.IMC 01-07 13:32
PROVIDERS: Emergency Medicine; Family Medicine; Internal Medicine; Internal Medicine Gastroenterology; Admitting Provider Physician Assistant Medical; Emergency Provider Emergency Medicine Emergency Medical Services; PCP Internal Medicine; Visit Provider Student in an Organized Health Care Education/Training Program
PROC: 0DJ08ZZ Inspection of Upper Intestinal Tract, Via Natural or Artificial Opening Endoscopic (ICD-10-PCS; CPT 43235; principal; 2025-01-09 13:40)
PROC: 0DJD8ZZ Inspection of Lower Intestinal Tract, Via Natural or Artificial Opening Endoscopic (ICD-10-PCS; CPT 45378; principal; 2025-01-10 13:00)
DX: K57.31 Diverticulosis of large intestine without perforation or abscess with bleeding (principal); I25.10 Atherosclerotic heart disease of native coronary artery without angina pectoris; K29.51 Unspecified chronic gastritis with bleeding; I10 Essential (primary) hypertension; E78.5 Hyperlipidemia, unspecified; D50.0 Iron deficiency anemia secondary to blood loss (chronic); K63.5 Polyp of colon; I48.0 Paroxysmal atrial fibrillation; K76.0 Fatty (change of) liver, not elsewhere classified; K44.9 Diaphragmatic hernia without obstruction or gangrene; Z95.1 Presence of aortocoronary bypass graft; Z87.891 Personal history of nicotine dependence; Z79.51 Long term (current) use of inhaled steroids; Z79.82 Long term (current) use of aspirin; Z79.84 Long term (current) use of oral hypoglycemic drugs; Z79.899 Other long term (current) drug therapy
CPT/HCPCS: 36415; 71045; 76700; 76981; 80048; 80053; 80076; 82272; 82947; 83735; 85025; 85027; 85610; 86850; 86900; 86901; 86923; 88305; 88313; 88342; 93005; 99285; J2003; J2470; J2704; P9016

== ENCOUNTER → 2025-01-06 08:04 | Outpatient (BNV) | payer MEDICARE, OTHER, SELFPAY | PROVIDERS: Admitting Provider Physician Assistant Medical; Emergency Provider Emergency Medicine Emergency Medical Services; PCP Internal Medicine; Visit Provider Internal Medicine | DX: I44.0 Atrioventricular block, first degree (principal); I49.3 Ventricular premature depolarization; I45.81 Long QT syndrome | CPT/HCPCS: 93010 ==

== ENCOUNTER 2025-01-06 10:48 | Outpatient (BNV) | payer MEDICARE, OTHER, SELFPAY | END 2025-01-07 10:50 | PROVIDERS: Admitting Provider Physician Assistant Medical; Emergency Provider Emergency Medicine Emergency Medical Services; PCP Internal Medicine; Visit Provider Radiology Diagnostic Radiology | DX: J90 Pleural effusion, not elsewhere classified (principal) | CPT/HCPCS: 71045 ==

== ENCOUNTER → 2025-01-06 10:48 | Outpatient (BNV) | payer MEDICARE, OTHER, SELFPAY | PROVIDERS: Admitting Provider Physician Assistant Medical; Emergency Provider Emergency Medicine Emergency Medical Services; PCP Internal Medicine; Visit Provider Physician Assistant Medical | DX: K92.2 Gastrointestinal hemorrhage, unspecified (principal) | CPT/HCPCS: 99223; 99232 ==

== ENCOUNTER 2025-01-23 11:07 | Outpatient (REF) | payer MEDICARE, OTHER, SELFPAY ==
--- OUTSIDE RECORDS SUMMARY | 2024-11-30 05:00 | XMS_ITS | Encounter Summary ---
Author Name [facility] [facility] [place] [facility] [place] Address [address] [place] [address] Care Team Providers Care Pool Table Operator Name Role Phone MISSY MALLORY Primary Care [...] Martínez's Name Patient's Relationship to Policy [facility]ínez [facility] AD[facility] (WNR) Jun 01, 2023 [id number] [phone] TOMEKA OLIVIER PATIENT [employer] [facility] (WNR) MEDICARE ADVANTAGE [place] Jun 01, 2021 [id number] [phone] TOMEKA OLIVIER PATIENT FOR LIFE TFL* Nov 30, 2018 [id number] TOMEKA OLIVIER PATIENT Selected Encounter This section includes the information on record at [place] for the Encounter. Date/Time Encounter Type Encounter Description Reason Provider Source Nov 30, 2024 09:00 AM OFFICE O/P EST MOD 30 MIN PRIMARY CARE/MEDICINE ICD-10-CM I10 Essential (primary) hypertension MISSY MALLORY Rebecca Encounter Template Text not used by [place] Assessments - Encounter Diagnoses This section includes the primary and secondary diagnoses documented for the Encounter. Date/Time Primary/Secondary Diagnosis Diagnosis Name Provider Source Jan 03, 2025 07:44 AM PRIMARY Essential (primary) hypertension FAW[facility]IA [facility] Jan 03, 2025 07:44 AM SECONDARY Benign prostatic hyperplasia without lower urinry tract symp FAWN,LIA Coates [facility] Jan 03, 2025 07:44 AM SECONDARY Hyperlipidemia, unspecified FAWN,LIA L [facility] Jan 03, 2025 07:44 AM SECONDARY Type 2 diabetes mellitus without complications FAWN,LIA Coates [facility] Vital Signs: All taken on the encounter date This section contains inpatient and outpatient Vital Signs collected on the date of the Encounter. Date/Time Temperature Pulse Blood Pressure Respiratory Rate SP02 Pain Height Weight Body Mass Index Source Nov 30, 2024 09:02 AM 98.9 F 60 /min 134/89 mm[Hg] 16 /min 99 % 5 198 lb 28 [facility] [place] [facility] Social History: Smoking Status (Most current) and Tobacco Use (All prior to encounter date) This section includes the most current, and the historical, smoking and tobacco- related health factors from the [place] facility where the Encounter took place. Current Smoking Status This section includes the most current smoking, or tobacco-related health factor, from the [place] facility where the Encounter took place. Date/Time Current Smoking Status Comment Facil ity Nov 27, 2023 09:00 AM VA-TOBACCO FORMER USER [facility] Tobacco Use History This section includes a history of the smoking, or tobacco-related health factors, that were collected on or before the date of the Encounter. The data comes from the [place] facility where the Encounter took place. Date/Time Smoking Status/Tobacco Use Comment F acility Nov 27, 2023 09:00 AM VA-TOBACCO QUIT 15 YRS OR MORE [facility] Nov 26, 2022 09:30 AM VA-TOBACCO NEVER USED [facility] Nov 26, 2021 09:00 AM VA-TOBACCO NEVER USED [facility] May 01, 2020 11:00 AM VA-TOBACCO NEVER USED [facility] Apr 19, 2019 02:33 PM VA-TOBACCO FORMER USER [facility] Apr 19, 2019 02:33 PM VA-TOBACCO QUIT 15 YRS OR MORE [facility] Encounter Notes: All associated encounter notes This section contains the clinical notes associated to the Encounter. Date/Time Encounter Note(s) Provider Source Nov 30, 2024 09:19 AM PRIMARY CARE NURSE PRACTITIONER OUTPATIENT NOTE: LOCAL TITLE: NURSE PRACTITIONER OUTPATIENT NOTE STANDARD TITLE: PRIMARY CARE NURSE PRACTITIONER OUTPATIENT NOTE DATE OF NOTE: NOV 30, 2024@09:19 ENTRY DATE: NOV 30, 2024@09:19:30 AUTHOR: MISSY MALLORY EXP COSIGNER: URGENCY: STATUS: COMPLETED Pt is a 84 who comes in for follow up of medical problems as noted below. HPI: HTN Well controlled takes metoprolol and irbesartan/HCTZ as rx'd HLD takes atorvastatin gets lipids annually BPH follows with urology, taking finasteride and doing well Type II DM -Continue Routine A1C checkes -Cont sitagliptin and metformin Right medial knee he twisted this morning has medial pain but feeling better just wanted it documented in event he needs PT PMH: Active problems - Computerized Problem List is the source for the followin. Benign essential hypertension 2. Diabetes Mellitus Type 2 ([facility] [id number]) 3. Benign Prostatic Hypertrophy Without Outflow Obstruction ([facility] 298810049) 4. Hyperlipidemia ([facility] 90933198) Allergies: Patient has answered NKA The following VA and Non-VA meds were reconciled with patient: Active and Recently Outpatient Medications (excluding Supplies): Active Non-VA Medications Status === 1) Non-VA ASPIRIN 81MG CHEW TAB 81MG BY MOUTH ONCE DAILY ACTIVE 2) Non-VA ATORVASTATIN CALCIUM 20MG TAB 10MG BY MOUTH EVERY ACTIVE EVENING 3) Non-VA FINASTERIDE 1MG TAB 1MG BY MOUTH ONCE DAILY ACTIVE Indication: UNKNOWN 4) Non-VA HCTZ 12.5/IRBESARTAN 150MG TAB 1 TABLET BY MOUTH ONCE ACTIVE DAILY 5) Non-VA HCTZ 12.5/IRBESARTAN 150MG TAB 1 TABLET BY MOUTH ONCE ACTIVE DAILY Indication: FOR HIGH BLOOD PRESSURE 6) Non-VA LORATADINE 10MG TAB 10MG BY MOUTH ONCE DAILY ACTIVE Indication: FOR ALLERGY 7) Non-VA METFORMIN HCL 1000MG TAB 1000MG BY MOUTH TWICE DAILY ACTIVE 8) Non-VA METOPROLOL SUCCINATE 50MG SA TAB 50MG BY MOUTH ONCE ACTIVE DAILY 9) Non-VA MONTELUKAST NA 10MG TAB 10MG BY MOUTH ONCE DAILY ACTIVE 10) Non-VA SEMAGLUTIDE 2MG/0.75ML INJ PEN 3ML 2MG SUBCUTANEOUSLY ACTIVE ONCE A WEEK Allergies: Patient has answered NKA VITAL SIGNS: 98.9 F [37.2 C] (11/30/2024 09:02) 60 (11/30/2024 09:02) 16 (11/30/2024 09:02) 134/89 (11/30/2024 09:02) 5 (11/30/2024 09:02) 70 in [177.8 cm] (11/26/2021 08:04) 198 lb [89.81 kg] (11/30/2024 09:02) BMI: 28.5 ROS 10 point ROS negative unless above in HPI PHYS ICAL EXAM GENERAL: well appearing in NAD, speeking in clear sentences. RESP: CTAB, no wheezing or Rales. Cards: S1 S2 RRR, No m/r/g no JVD, No Pedal Edema, Distal Pulses palpable NEURO CN II-XII grossly intact, gait steady without shuffle MENTAL A&Ox3 Appropriate, Pleasant, Cooperative ASSESSMENT AND PLAN: HTN -controlled -Cont metoprolol and irbesartan/HCTZ as rx'd HLD -Cont atorvastatin BPH -follows with urology -Cont finasteride Type II DM -Cont ozempic and Metformin Right knee pain -RICE and IBU he will call next week if still in pain cosider knee sleeve and PT he twisted this morning has medial pain but feeling better just wanted it documented in event he needs PT Patient prefers to follow up with off-site PCP regularly for titration of meds and management of chronic conditions. He will come here annually. Advised if anything changes and no longer following with off-site PCP, please call patient coordinator front desk to schedule sooner appt with VA PCP. Today I spent 25 minutes on some or all of the following: chart review, history, physical examination, treatment planning education and counseling of the patient/family/child care team lead, placing orders, communicating with other health care providers, and documentation in the electronic health record Return to clinic to see me in 12 months, RTC sooner if needed. Clinical Reminders Hemoglobin A1C: Patient declines Hemoglobin A1C testing at this time. Medication Reconciliation: Outpatient: Has the patient been taking medications as documented in the EMLR? YES: The patient has been taking medications as documented in the EMLR. Essential Medication List for Review used to complete this medication reconciliation. INCLUDED IN THIS LIST: Alphabetical list of active outpatient prescriptions dispensed from this [place] (local) and dispensed from another [place] or [facility] facility (remote) as well as inpatient orders (local, pending and active), local clinic medications, locally documented non-VA medications, and local prescriptions that have or been discontinued in the past 90 days. - All changes in medications, including all non-VA/Herbal/OTC medications were entered into CPRS. - If there were any medications the patient should no longer take, they were discontinued. - The patient/caregiver was instructed to update this list, discard old lists, and take this list to the next appointment, whether with a VA or non-VA provider. /estefany/ SHELLY FERNANDEZ Nurse Practitioner Signed: 11/30/2024 09:45 MISSY MALLORY [facility] Nov 30, 2024 09:06 AM PREVENTIVE MEDICINE NURSING NOTE: LOCAL TITLE: CLINICAL REMINDERS/NURSING STANDARD TITLE: PREVENTIVE MEDICINE NURSING NOTE DATE OF NOTE: NOV 30, 2024@09:06 ENTRY DATE: NOV 30, 2024@09:06:42 AUTHOR: HUANG CRUZ COSIGNER: URGENCY: STATUS: COMPLETED Suicide Screen: C-SSRS Screening [place] Suicide Severity Rating Scale (C-SSRS) screener 1. [...] Not worried about housing near future The [employer] reports the following: Within the past 12 months, you worried whether your food would run out before you got money to buy more. Never true Within the past 12 months, the food you bought just didn't last and you didn't have money to get more. Never true Depression Screening: Perform PHQ-2 A PHQ-2 screen was performed. The score was 0 which is a negative screen for depression. Over the past two weeks, how often have you been bothered by the following problems? 1. Little interest or pleasure in doing things Not at all 2. Feeling down, depressed, or hopeless Not at all PTSD Screening: PC-PTSD-5 A PTSD screening test (PC-PTSD-5) was negative (score=0). Sometimes things happen to people that are unusually or especially frightening, horrible or traumatic. For example: A [...] due to responses to other questions. 5. [place] numb or detached from people, activities, or your surroundings? Response not required due to responses to other questions. 6. [place] guilty or unable to stop blaming yourself or others for the event(s) or any problems the event(s) may have caused? Response not required due to responses to other questions. Influenza Immunization: The patient has received the seasonal influenza vaccine for the current season at another location. Documented: INFLUENZA, UNSPECIFIED FORMULATION Historical Date Administered: Jan 2024 Exact date unknown Outside Location: Outside Healthcare Provider Information Source: FROM PATIENT'S RECALL Alcohol Use Screen (AUDIT-C): Alcohol Screen: SCREEN FOR ALCOHOL (AUDIT-C) An alcohol screening test (AUDIT-C) was negative (score=1). 1. How often did you have a drink containing alcohol in the past year? Consider a drink to be a 12 ounce can or bottle of regular beer, 8 ounces of malt liquor, a 5 ounce glass of table wine, or a 1.5 ounce shot of liquor (like scotch, gin, or vodka). Monthly or less 2. How many drinks containing alcohol did you have on a typical day when you were drinking in the past year? One or two drinks 3. How often did you have six or more drinks on one occasion in the past year? Never COVID-19 Immunization: COVID-19 vaccine given previously - written records NOT available Patient instructed to obtain a written record of the prior vaccine and bring it to the next appointment. Tdap Immunization: The patient may have been vaccinated in the past but written documentation of vaccination is not available today. Patient instructed to obtain a written record of the prior vaccine and bring it to the next appointment. Herpes Zoster (Shingles) Vaccine: Defer due to a PRECAUTION Reason: not sure if you have it RSV Immunization: Defer due to a PRECAUTION Reason: not sure if had PAVE Foot Check: Patient indicates foot exam (including monofilament test for sensation) was performed in the past year in the private sector: Date: January, ? Exact date is unknown Result: Normal /es/ HUANG CRUZ REGISTERED NURSE Signed: 11/30/2024 09:12 HUANG CRUZ [facility]
--- OUTSIDE RECORDS SUMMARY | 2025-01-16 05:04 | XMS_ITS ---
Author Organization Vini Mendoza MD Address [address] [place] [phone] Care Team Providers Care Hoop Coiler Name Role Phone Vini Mendoza Primary Care Provider REASON FOR VISIT refill Medications Medication SIG (Take, Route, Frequency, Duration) Notes Start Date End Date Status Metoprolol Tartrate 25 MG 1/2 tablet wit h food Orally Twice a day for 90 days 01/16/2025 Active Encounters Encounter Location Date Provider Diagnosis Vini Mendoza MD [address] [place] [phone] 01/16/2025 Vini Mendoza Plan Of Treatment Medication Medication Name Sig Start Date Stop Date Notes Metoprolol Tartrate 25 MG 1/2 tablet wit h food Orally Twice a day for 90 days 01/16/2025 Next Appt Details Provider Name:Vini Moscoso ier, 02/02/2025 10:30:00 AM, [address] [place] [address], Suite [facility], [place], [phone], Provider Name:Vini Moscoso ier, 06/29/2025 07:45:00 AM, [address] [place] [address], Suite [facility], [place], [phone], Provider Name:Vini Moscoso ier, 07/06/2025 09:30:00 AM, [address] [place] [address], Suite [facility], [place], [phone], Progress Notes * Deacon ROMODOB:[birth year] (84 yo M)Acc No.[id number]:01/16/2025 Patient: Galina Deacon LAZARO :1940 A ge:84 Y S ex:Male Address:[address] [place] [address] [place] [address] * Refills Start Metoprolol Tartrate Tablet, 25 MG, Orally, 90, 1/2 tablet with food, Twice a day, 90 days, Refills=3 * true * Date: Generated for Meg brenner/Min/Jordenitting on: 0 01/23/2025 12:29 PM EDT
--- OUTSIDE RECORDS SUMMARY | 2025-01-21 23:59 | XMS_ITS | Continuity of Care Document ---
Author Organization [facility] Sylvia leland Address [address] [place] [address]- Care Team Providers Care Framing Mill Supervisor Name Role Phone Kelly RIGGS, Vini Primary Care Physician [phone] [place] [facility] [place]): [place] - 01/21/25 [facility] [address] [place] [address] Drive [address] [place], [place] [address] Encounter Type: Triage Allergies, Adverse Reactions, Alerts Substance Criticality Severity [...] Refills, Maintenance, 12/14/24 11:23:00 AM EDT, Tablet, [facility], Partial fill upon patient request [...] Refills, Maintenance, 12/14/24 11:20:00 AM EDT, Tablet, [facility], Partial fill upon patient request [...] 11:23:00 AM EDT, Route to Pharmacy Electronically, [facility], Partial fill upon patient request [...] Refills, Maintenance, 12/14/24 11:21:00 AM EDT, Tablet, [facility], Partial fill upon patient request [...] Refills, Maintenance, 12/14/24 11:21:00 AM EDT, Nasal [place], [facility], Partial fill upon patient request [...] 11:24:00 AM EDT, Route to Pharmacy Electronically, [facility], Partial fill upon patient request [...] 11:23:00 AM EDT, Route to Pharmacy Electronically, [facility], Partial fill upon patient request [...] 0 Refills, Maintenance, 12/14/24 11:33:00AM EDT, Tablet, [facility], Partial fill upon patient request if [...] 11:21:00 AM EDT, Route to Pharmacy Electronically, [facility], Partial fill upon patient request if [...] 11:22:00 AM EDT, Route to Pharmacy Electronically, [facility], Partial fill upon patient request if [...] Quantity: 3.0 Unit: mL Repeat number: 1 Vashe Topical Solution 475 mL, Topically, Every 12 hours, 0 Refills, Maintenance, Solution Start Date: 12/14/24 Status: Ordered Repeat number: 1 Patient Care team information Care Team Personnel Name: Vini Mendoza MD Position: Reference Physician Member Role: PCP Address: [address] [place] [address] Vini Mendoza [place], [place] [address] Telecom: [phone] Name: Jessika Dia RN Position: S RN Member Role: Primary Care Nurse Name: Robert Fernández RN Position: S RN Member Role: Primary Care Nurse Name: Kika Moore RN Position: [facility] RN Member Role: Primary Care Nurse Care Team Related Persons Name: ROSETTE OLIVIER Name: PRINCE OLIVIER Name: TOMEKA OLIVIER Insurance Providers Guarantor name: LAUREN Health Plan Information #: 1 Payer: [employer] MED[employer]ARE ADV PPO Payer Identifier: Member Number: [id number] Group Number: [id number] Subscriber Identifier: [id number] Relationship to Subscriber: self Coverage Type: Medicare PPO Coverage Verification Date: Telecom: Address: [facility] Information #: 2 Payer: FOR LIFE Payer Identifier: Member Number: [id number] Group Number: Subscriber Identifier: [id number] Relationship to Subscriber: self Coverage Type: For Life--Medicare Supplement Coverage Verification Date: Telecom: Address:
[2025-01-23 11:11] LABS: MANUAL DIFF FLAG NO
[2025-01-23 11:31] LABS: Hematocrit 33.9 % (42.0-52.0); Hemoglobin 10.1 g/dl (14.0-18.0); Imm Gran Abs Auto 0.05 X10*3/uL (0.00-0.03); Imm Gran Pct Auto 0.5 % (0.0-0.4); Lymphocytes Absolute Auto 1.9 X10*3/uL (1.2-4.9); Mean Corpuscular HGB Conc 29.8 g/dl (31.0-36.0); Mean Corpuscular Hemoglobin 23.9 pg (27.0-33.0); Mean Corpuscular Volume 80.1 fL (80.0-98.0); NRBC Abs Auto 0.000 X10*3/uL (0.0-0.012); NRBC Pct Auto 0.0 /100WBC (0.0-0.2); Platelet Count 358 X10*3/uL (160-400); Red Blood Count 4.23 X10*6/uL (4.60-5.80); White Blood Count 9.6 X10*3/uL (4.8-10.8)
--- OUTSIDE RECORDS SUMMARY | 2025-01-23 12:30 | XMS_ITS | Clinical Summary ---
Author Organization [facility] Address [address] [place] [address] Phone Care Team Providers Care Human Resources Training Manager Name Role Phone Pcp, Unknown Primary Care Provider Unavailabl e Encounters Date Type Department Care Team Description 12/21/2024 Orders Only [facility] [address], [address] [place] [address] ProviderLupe MD from Last 3 Months Social [...] 2016 COVID-19 VACCINE (2023-2 5 season) 2024 INFLUENZA VACCINE (#1) 2024 HEPATITIS A VACCINES Aged Out No [...] Catheterization Report Only (12/06/2024 2:40 PM EDT) Historical Provider MD MARIE CARDIAC CATH ORDERABLE S Final Result from Last 3 Months Insurance [facility] MEDICARE REPLACEMENT [facility] MEDICARE SUPPLEMENT [facility] MEDIC[facility] REPLACEMENT [facility] MEDICARE SUPPLEMENT [facility] MEDICARE REPLACEMENT [facility] MEDICARE SUPPLEMENT [facility] MEDIC[facility]PLAC[facility] FOR [facility] MEDICARE [facility] RE[facility] FOR [facility] MEDICARE SUPPLEMENT [facility] MEDICARE REPLACEMENT [employer] MEDICARE SUPPLEMENT Care Teams Human Resources Training Manager Relationship Specialty Start Date End Date Pcp, Unknown PCP - General 12/21/24 Additional Source Comments The information contained in this document represents components of the legal health record. It is not the complete legal health record.[facility]
--- OUTSIDE RECORDS SUMMARY | 2025-01-23 12:30 | XMS_ITS | Patient Health Record ---
Author Organization [facility] Address [address] [place] [address] Care Team Providers Care Floor Coverer Name Role Phone Vini Mendoza MD Primary Care Provider Cedrick Becerra Jr Unavailable [phone] Allergies Allergen (clinical drug ingredient) Drug/Non Drug Allergy documented on EMR Reaction Allergy Type Onset Date Status seasonal (uncoded) Unknown Allergy A ctive Results Component Value Reference Range Notes Glucose, Whole Blood Reviewed date:01/27/2024 04:42:27 PM Interpretation: Performing Lab:[facility], [address] [place] [phone] Notes/Report: Glucose, Whole Blood 133 60-115 mg/dL METER # : [id number] Pathology Reviewed date:01/29/2024 02:29:14 PM Interpretation: Performing Lab:[facility], [address] [place] [phone] Notes/Report: US abdomen comp w elastograp hy Reviewed date:01/10/2025 12:58:18 PM Interpretation: Performing Lab: Notes/Report: [address] [address] Ultrasound Report Signed Patient: Deacon Romo MR#: [id number] 682 : 1940 Acct:[id number] Age/Sex: 84 / M ADM Date: 01/06/25 Loc: [facility] 473-[address]: Krishna Lemon MD Ordering Physician: Leo Guo MD Date of Service: 01/07/25 Procedure(s): US abdomen comp w elastography Accession Number(s): [id number] cc: Vini Mendoza MD; Loe Guo MD EXAMINATION: US COMPLETE ABDOMEN WITH LIVER ELASTOGRAPHY CLINICAL INFORMATION: Elevated LFTs COMPARISON: Ultrasound abdomen 01/02/2023 TECHNIQUE: Real-time imaging of the abdominal viscera. Noninvasive ultrasound liver fibrosis assessment is performed using [employer] Elast[employer] point quantification shear wave elastography (pSWE) with a C5-2 MHz transducer. Multiple elastography samples are obtained. FINDINGS: PANCREAS: The visualized pancreatic head and body are normal in appearance. The remainder of the pancreas is obscured from visualization by the overlying bowel gas. ABDOMINAL AORTA: No aortic aneurysm is seen. INFERIOR VENA CAVA: Visualized portions are normal. LIVER: The liver demonstrates normal size, contour and increased echogenicity. No focal lesion or intrahepatic biliary duct dilatation. The right lobe measures 15.3 cm in length. The left lobe measures 11.0 cm in length. Portal flow is hepatopedal Shear wave liver elastography median stiffness is 1.28 m/s (reference: normal median stiffness is 1.3 m/s or less). IQR/median stiffness to assess sampling precision is 0.09 (reference: good quality data set is IQR/median stiffness of 0.15 or less). GALLBLADDER: The gallbladder is physiologically distended without evidence of stones, sludge, polyps, wall thickening or pericholecystic fluid. Gallbladder wall thickness is 0.23 cm COMMON BILE DUCT: Not imaged. Was normal on the previous ultrasound exam. RIGHT KIDNEY: No hydronephrosis. There is anechoic partially exophytic cyst mid pole measuring 0.0 x 0.75 x 0.90 cm.. The kidney measures 11.1 cm in maximum dimension. LEFT KIDNEY: No hydronephrosis. No renal calculi or focal parenchymal lesions. The kidney measures 11.6 cm in maximum dimension. SPLEEN: Unremarkable. The spleen measures 12.7 cm in maximum dimension. FREE FLUID: Suspect small left pleural effusion US/US abdomen comp w elastography IMPRESSION: 1. Echogenic liver. Similar findings were seen on previous ultrasound 01/02/2023 2. Liver elastography: Median liver stiffness measures 1.28 suggestive of high probability 3. Small partially exophytic cyst mid pole right kidney. Previously visualized echogenic stones in kidneys is not seen at this time. REFERENCE: Society of Radiologists in Ultrasound Liver Stiffness Thresholds (2019): LIVER STIFFNESS THRESHOLDS: *Liver Stiffness equal or less than 1.3 m/s: High probability of being normal. *Liver Stiffness less than 1.7 m/s: In the absence of other known clinical signs, rules out compensated advanced chronic liver disease. *Liver Stiffness 1.7-2.1 m/s: Suggestive of compensated advanced chronic liver disease but need further test for confirmation. *Liver Stiffness over 2.1 m/s: Rules in compensated advanced chronic liver disease. *Liver Stiffness over 2.4 m/s: Suggestive of clinically significant portal hypertension. QUALITY OF DATA SET: *IQR/Median value equal or less than 0.15 implies a quality data set. *IQR/Median value over 0.15 implies a poor quality data set. SIGNIFICANT CHANGE FROM PRIOR EXAM: Significant change if liver stiffness measurement is 10% or greater from prior exam. OTHER CONSIDERATIONS: The stage of liver fibrosis may be overestimated in the setting of acute hepatitis, liver inflammation, elevated liver function tests, hepatic vascular congestion, obstructive cholestasis, non-fasting state, and infiltrative diseases such as amyloidosis and lymphoma. In some patients with NAFLD, the liver stiffness thresholds for compensated advanced chronic liver disease may be lower. In causes other than viral hepatitis and NAFLD, liver stiffness thresholds are not well established. Electronically signed by: Checo Bronson MD 01/09/2025 07:13 AM EDT Dictated By: Checo Bronson MD Signed By: <Electronically signed by Checo Bronson MD in OV> 01/09/25 0713 DD/ 0800 TD/TT: 01/07/25 0830 Sanding Machine Operator: LISA Complete Blood Count Auto Di ff Reviewed date:01/10/2025 12:57:13 PM Interpretation: Performing Lab:[facility], [address] [place] [phone] Notes/Report: White Blood Count 6.1 4.8-10.8 X10*3/uL Red Blood Count 3.73 4.60-5.80 X10*6/uL Hemoglobin 9.2 14.0-18.0 g/dl Hematocrit 30.0 42.0-52.0 % Mean Corpuscular Volume 80.4 80.0-98.0 fL Mean Corpuscular Hemoglobin 24.7 27.0-33.0 pg Mean Corpuscular HGB Conc 30.7 31.0-36.0 g/dl Red Cell Distribution Width 18.6 11.0-16.0 % Platelet Count 198 160-400 X10*3/uL Mean Platelet Volume 11.0 9.4-12.4 fL Neutrophils Percent Auto 57.3 45-73 % Imm Gran Pct Auto 0.3 0.0-0.4 % Lymphocytes Percent Auto 23.4 20-40 % Monocytes Percent Auto 8.4 2-11 % Eosinophils Percent Auto 9.9 0-4 % Basophils Percent Auto 0.7 0-2 % NRBC Pct Auto 0.0 0.0-0.2 /100WBC Neutrophils Absolute Auto 3.5 2.0-8.3 x10*3/u L Imm Gran Abs Auto 0.02 0.00-0.03 X10*3/uL Lymphocytes Absolute Auto 1.4 1.2-4.9 X10*3/u L Monocytes Absolute Auto 0.5 0.1-1.2 X10*3/uL Eosinophils Absolute Auto 0.6 0.0-0.4 X10*3/u L Basophils Absolute Auto 0.0 0.0-0.2 X10*3/uL NRBC Abs Auto 0.000 0.0-0.012 X10*3/uL Pathology Reviewed date:01/15/2025 10:51:17 PM Interpretation: Performing Lab:[facility], [address] [place] [phone] Notes/Report: Complete Blood Count Auto Di ff Reviewed date:01/10/2025 12:56:35 PM Interpretation: Performing Lab:[facility], [address] [place] [phone] Notes/Report: White Blood Count 4.9 4.8-10.8 X10*3/uL Red Blood Count 3.52 4.60-5.80 X10*6/uL Hemoglobin 8.8 14.0-18.0 g/dl Hematocrit 28.0 42.0-52.0 % Mean Corpuscular Volume 79.5 80.0-98.0 fL Mean Corpuscular Hemoglobin 25.0 27.0-33.0 pg Mean Corpuscular HGB Conc 31.4 31.0-36.0 g/dl Red Cell Distribution Width 18.5 11.0-16.0 % Platelet Count 179 160-400 X10*3/uL Mean Platelet Volume 11.0 9.4-12.4 fL Neutrophils Percent Auto 53.4 45-73 % Imm Gran Pct Auto 0.6 0.0-0.4 % Lymphocytes Percent Auto 27.2 20-40 % Monocytes Percent Auto 8.9 2-11 % Eosinophils Percent Auto 9.1 0-4 % Basophils Percent Auto 0.8 0-2 % NRBC Pct Auto 0.0 0.0-0.2 /100WBC Neutrophils Absolute Auto 2.6 2.0-8.3 x10*3/u L Imm Gran Abs Auto 0.03 0.00-0.03 X10*3/uL Lymphocytes Absolute Auto 1.3 1.2-4.9 X10*3/u L Monocytes Absolute Auto 0.4 0.1-1.2 X10*3/uL Eosinophils Absolute Auto 0.4 0.0-0.4 X10*3/u L Basophils Absolute Auto 0.0 0.0-0.2 X10*3/uL NRBC Abs Auto 0.000 0.0-0.012 X10*3/uL Basic Metabolic Panel Fastin g Reviewed date:01/10/2025 12:56:52 PM Interpretation: Performing Lab:[facility], [address] [place] [phone] Notes/Report: Sodium 145 135-145 mmol/L Potassium 3.8 3.3-5.1 mmol/L Chloride 112 96-108 mmol/L Carbon Dioxide 26 22-29 mmol/L Anion Gap 11 12-20 Blood Urea Nitrogen 7 9-16 mg/dL Creatinine 0.96 0.5-1.4 mg/dL Creatinine Clr Calc Pharmacy 60.1 eGFR (calculated from the MDRD study equation) and eCrCl (calculated from the Cockcroft-Gault equation) are based on different parameters and may not yield comparable results. If eCrCl result is absurd, please check patient's height/weight. Estimated Glomerular Filt Rate > 60 Chronic Kidney Disease: Estimated GFR < 60 mL/min/1.73m2 Severe Kidney Disease: Estimated GFR < 15 mL/min/1.73m2 Glucose Fasting 95 60-99 mg/dL Calcium 8.0 8.4-10.2 mg/dL Pathology Reviewed date:01/12/2025 12:57:41 PM Interpretation: Performing Lab:[facility], [address] [place] [phone] Notes/Report: Reason For Referral No Information Medications Medication SIG (Take, Route, Frequency, Duration) Notes Start Date End Date Status Singulair 10 MG 1 tablet Orally Once a day Active metFORMIN HCl 500 MG 2 TABLETS Orally Tw ice a day Active Metoprolol Succinate ER 50 MG 1 tablet Orally Once a day Active Aspir-Low 81 MG 1 tablet Orally Once a day for 30 day(s) Active Flonase 50 MCG/ACT 1 spray in each nost ril Nasally PRN Active Atorvastatin Calcium 20mg 1/2 tablet Ora lly Once a day Active Valsartan-hydroCHLOROthiazi de 320-12.5 MG 1/2 tablet Orally Once a day Active Immunizations Vaccine Route Administration Date Status Comme nts Flu vaccine no Preserv 3 and > Unknown 06/01/2015 Admin istered Influenza Unknown 04/15/2018 Administered Influenza Unknown 03/18/2022 Administered Influenza Unknown 12/09/2023 Refused Problems Problem Type SNOMED Code ICD Code Onset Dates Problem Status W/U Status Risk Notes Problem 248509297 Colon cancer screening (Z12.11) Active confirmed Problem 039055674 Personal history of colonic polyps (Z86.010) Active confirmed Problem Anemia (253250687) Anemia (D64.9) Active confirmed Problem 274496438 Long-term use of aspirin therapy (Z79.82) Active confirmed Problem Chronic gastritis (2012900) Chronic gastritis (K29.50) Active confirmed Problem 988073347 Long-term curren t use of high risk medication other than anticoagulant (Z79.899) Active confirmed Problem 909477276 FH: colon cancer (Z80.0) Active confirmed Problem 91432824 Hypertension, unspecified type (I10) Active confirmed Problem Anemia (789682155) Acute anemia (D64.9) Active confirmed Vital Signs Temperature 97.8 degrees Fahrenheit 11/09/2024 Blood pressure diastolic 01 mm Hg 11/09/2024 Height 69.5 in 11/09/2024 Blood pressure systolic 001 mm Hg 11/09/2024 Weight 193 lbs 11/09/2024 BMI 28.09 kg/m2 11/09/2024 Encounters Encounter Location Date Provider Diagnosis [facility] Outpatient [address] [place] [phone] 01/26/2024 Cedrick Justin Jr Colon cancer screening Z12.11 ; Family history of colon cancer Z80.0 and Colon polyps K63.5 [facility] Inpatient [address] [place], [place] [address] [place] [phone] 01/10/2025 Cedrick Justin Jr [facility] [address] [place] [phone] 11/09/2024 Cedrick Justin Jr Colon polyps K63.5 ; Anemia D64.9 and Colon cancer screening Z12.11 [facility] [address] [place] [phone] 01/29/2024 Cedrick Justin Jr [facility] [address] [place] [phone] 01/03/2025 Cedrick Justin Jr [facility] [address] [place] [phone] 01/08/2025 Cedrick Justin Jr [facility] [address] [place] [phone] 01/12/2025 Cedrick Justin Jr Assessments Encounter Date Diagnosis (ICD Code) Assessment Notes Treatment Notes Treatment Clinical Notes Section Notes 01/26/2024 Colon cancer screening (ICD-10 - Z12.11) 01/26/2024 Family history of colon cancer (ICD-10 - Z80.0) 11/09/2024 Colon polyps (ICD-10 - K63.5) At this time, he appears stable with respect to being up-to-date on colonoscopy. He is scheduled for follow-up with cardiology for his shortness of breath. He will continue to follow-up with his PCP regarding his anemia. There is no evidence of colon cancer. Follow-up with us will be in 6 months. He will call if he has problems before then. He has no upper GI symptoms. 11/09/2024 Anemia (ICD-10 - D64.9) At this time, he appears stable with respect to being up-to-date on colonoscopy. He is scheduled for follow-up with cardiology for his shortness of breath. He will continue to follow-up with his PCP regarding his anemia. There is no evidence of colon cancer. Follow-up with us will be in 6 months. He will call if he has problems before then. He has no upper GI symptoms. 01/26/2024 Colon polyps (ICD-10 - K63.5) 11/09/2024 Colon cancer screening (ICD-10 - Z12.11) At this time, he appears stable with respect to being up-to-date on colonoscopy. He is scheduled for follow-up with cardiology for his shortness of breath. He will continue to follow-up with his PCP regarding his anemia. There is no evidence of colon cancer. Follow-up with us will be in 6 months. He will call if he has problems before then. He has no upper GI symptoms. Plan Of Treatment Future Test Test Name Order Date COLONOSCOPY 11/22/2015 COLONOSCOPY 01/26/2019 COLONOSCOPY 12/09/2023 Next Appt Details Provider Name:Cedrickmaikel licona Jr, 03/27/2025 02:15:00 PM, [address] [place] [address], [facility] [address], [place], [address], Insurance Providers Payer Name Payer Address Payer Phone Subscriber Number Group Number Insured Name Patient Relationship to Insured Coverage Start Date Coverage End Date [facility] [address] [place], [place] [id number] DEACON ROMO Self - patient is the insured [employer] [address] [place] [address] [id number] DEACON ROMO Self - patient is the insured Medical (General) History Medical History History ICD Code Colonoscopy 01/22, multiple adenomas, fol low-up optional based on age hypertension basal cell carcinoma BPH elevated cholesterol type II diabetes hearing loss anemia Surgical History Surgery Date(Month/Year) Ear surgery prostate surgery to enlarge the prostate lasik 1993 cataract-lens implants both eyes deviated septum repair removal of basal cell carcinomas
== END 2025-01-23 11:08 | disposition home or self-care (01) ==
LOC: HO.LNP 11:07
PROVIDERS: Visit Provider Internal Medicine
DX: D64.9 Anemia, unspecified (principal)
CPT/HCPCS: 85025

== ENCOUNTER 2025-02-02 13:09 | Outpatient (REF) | payer MEDICARE, OTHER, SELFPAY ==
--- OUTSIDE RECORDS SUMMARY | 2024-01-26 06:00 | XMS_ITS ---
Author Organization [facility] Address [address] [place] [address] [place] [address] Care Team Providers Care Etiology Teacher Name Role Phone Vini Mendoza MD Primary Care Provider Jennifer Justin Jr, Cedrick Unavailable [phone] REASON FOR VISIT screening Encounters Encounter Location Date Provider Diagnosis [facility] [place] [address] [place] [phone] 01/26/2024 Cedrick Justin Jr Colon cancer screening [...] Next Appt Details Provider Name:Cedrick licona Jr, 03/27/2025 02:15:00 PM, [address] [place] [address], [address], [place], [address], Progress Notes * TOMEKA OLIVIERDOB:[birth year] (84 yo M)Acc No.[id number]:01/26/2024 COLON WITH MAC Patient: TOMEKA IRVIN Provider: Jerica Justin MD :1940 A ge:83 Y S ex:Male Date:01/26/2024 Address:[address] [place] [address] [facility] Pcp:Vini Mendoza MD Subjective: * Chief Complaints: * 1 . Screening. * Medical History: Objective: * Vitals: Assessment: * Assessment: 1. C olon cancer screening - Z12.11 (Primary) 2 . F amily history of colon cancer - Z80.0 3 . C olon polyps - K63.5 Plan: * Treatment: * Procedure Codes: 4 5385 LESION REMOVAL COLONOSCOPY, 28517 LESION REMOVE COLONOSCOPY, Modifiers: 59 , 37670 COLONOSCOPY AND BIOPSY, Modifiers: 59 , 0529F INTRVL 3+YRS PTS CLNSCP DOCD * * The named appointment provid er may or may not be the originator of this progress note, and it is not deemed complete until electronically signed by the appointment provider. Sign off status: Pending * Provider: Jerica Justin MD Date: 0 01/26/2024 Generated for Meg brenner/Min/Jordenitting on: 0 02/02/2025 02:23 PM EDT
--- OUTSIDE RECORDS SUMMARY | 2025-01-09 07:20 | XMS_ITS ---
Author Organization [facility] Address [address] [place] [phone] Care Team Providers Care Payroll Lead Name Role Phone Vini Mendoza MD Primary Care Provider Jennifer Justin Jr, Cedrick Unavailable [phone] REASON FOR VISIT Patient presents today for a gi bleed Encounters Encounter Location Date Provider Diagnosis [facility] [address] [facility] [address] [place] [phone] 01/09/2025 Cedrick Justin Jr Plan Of Treatment Next Appt Details Provider Name:Cedrick licona Jr, 03/27/2025 02:15:00 PM, [address] [facility], [address], [place], [address], Progress Notes * TOMEKA OLIVIERDOB:[birth year] (84 yo M)Acc No.[id number]:01/09/2025 Progress Notes Patient: TOMEKA IRVIN Provider: Jerica Justin MD :1940 A ge:84 Y S ex:Male Date:01/09/2025 Address:[address] [place] [address] [id number] Pcp:Vini Mendoza MD Subjective: * Chief Complaints: * 1 . Patient presents today for a gi bleed. * Medical History: Objective: * Vitals: Assessment: Plan: * Treatment: * * The named appointment provid er may or may not be the originator of this progress note, and it is not deemed complete until electronically signed by the appointment provider. Sign off status: Pending * Provider: Jerica Justin MD Date: 0 01/09/2025 Generated for Meg brenner/Min/Derick on: 0 02/02/2025 02:23 PM EDT
--- OUTSIDE RECORDS SUMMARY | 2025-01-10 09:00 | XMS_ITS ---
Author Organization [facility] Address [address] [place] [address] Care Team Providers Care Patent Prosecution Attorney Name Role Phone Vini Mendoza MD Primary Care Provider Jennifer Justin Jr, Cedrick Blank [phone] REASON FOR VISIT anemia Medications Medication SIG [...] Active Encounters Encounter Location Date Provider Diagnosis [facility] [place] [address] [place], [place] [phone] 01/10/2025 Cedrick Justin Jr Plan Of Treatment Next Appt Details Provider Name:Cedrick licona Jr, 03/27/2025 02:15:00 PM, [address], [address], [place], [address], Progress Notes * TOMEKA OLIVIERDOB:[birth year] (84 yo M)Acc No.[id number]:01/10/2025 COLON WITH MAC Patient: TOMEKA IRVIN Provider: Jerica Justin MD :1940 A ge:84 Y S ex:Male Date:01/10/2025 Address:[address] [place] [address], [id number] Pcp:Vini Mendoza MD Subjective: * Chief Complaints: [...] MD Date: 0 01/10/2025 Generated for Meg brenner/Min/Derick on: 0 02/02/2025 02:24 PM EDT
--- OUTSIDE RECORDS SUMMARY | 2025-01-12 05:42 | XMS_ITS ---
Author Organization Vini Mendoza MD Address [address] [facility] [address] [place] [phone] Care Team Providers Care Hotel Housekeeper Name Role Phone Vini Mendoza Primary Care Provider REASON FOR VISIT Discharge Encounters Encounter Location Date Provider Diagnosis Vini Mendoza MD [address] [facility] [address] [place] [phone] 01/12/2025 Vini Mendoza Plan Of Treatment Next Appt Details Provider Name:Vini herzog, 02/23/2025 09:15:00 AM, [address] [facility], Suite [facility], [place], [place], [phone], Provider Name:Vini herzog, 06/29/2025 07:45:00 AM, [address], [address], [place], [phone], Provider Name:Vini Moscoso mino, 07/06/2025 09:30:00 AM, [address], [address], [place], [phone], Progress Notes * Deacon ROMODOB:[birth year] (84 yo M)Acc No.[id number]:01/12/2025 Patient: Galina LAZARO Deacon :1940 A ge:84 Y S ex:Male Address:[address] [place] [address], [place] [address] * true * Date: Generated for Meg brenner/Min/Donsmitting on: 0 02/02/2025 02:23 PM EDT
--- OUTSIDE RECORDS SUMMARY | 2025-01-12 06:44 | XMS_ITS ---
Author Organization Vini Mendoza MD Address [address] [place] [phone] Care Team Providers Care Policy Service Coordinator Name Role Phone Vini Mendoza Primary Care Provider [phone] REASON FOR VISIT RF Met and Atorvastatin Medications Medication SIG (Take, Route, Frequency, Duration) Notes Start Date End Date Status Atorvastatin Calcium 40 MG TAKE ONE TABL ET BY MOUTH EVERY DAY Orally for 90 days Active Metoprolol Succinate ER 50 MG TAKE ONE TABLET BY MOUTH EVERY DAY for 90 Active Encounters Encounter Location Date Provider Diagnosis Vini Mendoza MD [address] [place] [phone] 01/12/2025 Vini Mendoza Pure hypercholestero lemia E78.00 Assessments Encounter Date Diagnosis (ICD Code) Assessment Notes Treatment Notes Treatment Clinical Notes Section Notes 01/12/2025 Pure hypercholesterolemia (ICD-10 - E78.00) Plan Of Treatment Medication Medication Name Sig Start Date Stop Date Notes Atorvastatin Calcium 40 MG TAKE ONE TABL ET BY MOUTH EVERY DAY Orally for 90 days Metoprolol Succinate ER 50 MG TAKE ONE T ABLET BY MOUTH EVERY DAY for 90 Next Appt Details Provider Name:Vini woor, 02/23/2025 09:15:00 AM, [address] [place] [address], [place] [address], [place], [place], [phone], Provider Name:Vini woor, 06/29/2025 07:45:00 AM, [address] [place] [address], [place] [address], [place], [place], [phone], Provider Name:Vini herzog, 07/06/2025 09:30:00 AM, [address] [place] [address], [place] [address], [place], [place], [phone], Progress Notes * Deacon ROMODOB:[birth year] (84 yo M)Acc No.[id number]:01/12/2025 Patient: Galina LAZARO Deacon :1940 A ge:84 Y S ex:Male Address:[address] [place] [address] [place] [phone] * Refills Refill Metoprolol Succinate ER Tablet Extended Release 24 Hour, 50 MG, 90 Tablet, TAKE ONE TABLET BY MOUTH EVERY DAY, 90, Refills=3 Refill Atorvastatin Calcium Tablet, 40 MG, Orally, 90, TAKE ONE TABLET BY MOUTH EVERY DAY, 90 days, Refills=3 * true * Date: Generated for Meg brenner/Min/Derick on: 0 02/02/2025 02:23 PM EDT
--- OUTSIDE RECORDS SUMMARY | 2025-01-16 05:04 | XMS_ITS ---
Author Organization Vini Mendoza MD Address [address] [place] [phone] Care Team Providers Care Manager Army Name Role Phone Vini Mendoza Primary Care Provider [phone] REASON FOR VISIT refill Medications Medication SIG (Take, Route, Frequency, Duration) Notes Start Date End Date Status Metoprolol Tartrate 25 MG 1/2 tablet wit h food Orally Twice a day for 90 days 01/16/2025 Active Encounters Encounter Location Date Provider Diagnosis Vini Mendoza MD [address] [place] [phone] 01/16/2025 Vini Mendoza Plan Of Treatment Medication Medication Name Sig Start Date Stop Date Notes Metoprolol Tartrate 25 MG 1/2 tablet wit h food Orally Twice a day for 90 days 01/16/2025 Next Appt Details Provider Name:Vini Moscoso ier, 02/23/2025 09:15:00 AM, [address] [place] [address], [address] [facility], [place], [phone], Provider Name:Vini Moscoso ier, 06/29/2025 07:45:00 AM, [address] [place] [address], [address] [facility], [place], [phone], Provider Name:Vini Moscoso ier, 07/06/2025 09:30:00 AM, [address] [place] [address], [address] [facility], [place], [phone], Progress Notes * Deacon ROMODOB:[birth year] (84 yo M)Acc No.[id number]:01/16/2025 Patient: Galina Deacon LAZARO :1940 A ge:84 Y S ex:Male Address:[address] [place] [address] [place] [address] * Refills Start Metoprolol Tartrate Tablet, 25 MG, Orally, 90, 1/2 tablet with food, Twice a day, 90 days, Refills=3 * true * Date: Generated for Meg brenner/Min/Jordenitting on: 0 02/02/2025 02:23 PM EDT
--- OUTSIDE RECORDS SUMMARY | 2025-01-23 05:00 | XMS_ITS ---
Author Organization Vini Mendoza MD Address [address] [place] [phone] Care Team Providers Care Music Professor Name Role Phone Vini Mendoza Primary Care Provider Allergies No Known Allergies Results Component Value Reference Range Notes Complete Blood Count Auto Di ff Reviewed date:01/23/2025 12:30:04 PM Interpretation: Performing Lab:[facility], [address] [place] [phone] Notes/Report: White Blood Count 9.6 4.8-10.8 X10*3/uL Red Blood Count 4.23 4.60-5.80 X10*6/uL Hemoglobin 10.1 14.0-18.0 g/dl Hematocrit 33.9 42.0-52.0 % Mean Corpuscular Volume 80.1 80.0-98.0 fL Mean Corpuscular Hemoglobin 23.9 27.0-33.0 pg Mean Corpuscular HGB Conc 29.8 31.0-36.0 g/dl Red Cell Distribution Width 18.6 11.0-16.0 % Platelet Count 358 160-400 X10*3/uL Mean Platelet Volume 11.2 9.4-12.4 fL Neutrophils Percent Auto 66.8 45-73 % Imm Gran Pct Auto 0.5 0.0-0.4 % Lymphocytes Percent Auto 19.8 20-40 % Monocytes Percent Auto 8.2 2-11 % Eosinophils Percent Auto 4.2 0-4 % Basophils Percent Auto 0.5 0-2 % NRBC Pct Auto 0.0 0.0-0.2 /100WBC Neutrophils Absolute Auto 6.4 2.0-8.3 x10*3/u L Imm Gran Abs Auto 0.05 0.00-0.03 X10*3/uL Lymphocytes Absolute Auto 1.9 1.2-4.9 X10*3/u L Monocytes Absolute Auto 0.8 0.1-1.2 X10*3/uL Eosinophils Absolute Auto 0.4 0.0-0.4 X10*3/u L Basophils Absolute Auto 0.1 0.0-0.2 X10*3/uL NRBC Abs Auto 0.000 0.0-0.012 X10*3/uL REASON FOR VISIT PH/TCM Medications Medication SIG (Take, Route, Frequency, Duration) Notes Start Date End Date Status Ozempic (0.25 or 0.5 MG/DOSE) 2 MG/3ML as directed Subcutaneous 0.25 mg weekly fminth then .5mg weekly for 30 days 02/22/2024 Not-Taking Valtrex 1 GM 2 tablet Orally ever y 12 hrs for 1 dose 05/07/2012 Not-Taking Atorvastatin Calcium 40 MG TAKE ONE TABLET BY MOUTH EVERY DAY Orally for 90 days Active Metoprolol Tartrate 25 MG 1/2 tablet with food Orally Twice a day for 90 days 01/16/2025 Active Metoprolol Succinate ER 50 MG TAKE ONE TABLET BY MOUTH EVERY DAY for 90 Active Eliquis 5 MG as directed Orally T wice a day Active Clopidogrel Bisulfate 75 MG 1 tablet Orally Once a day Active Ozempic (2 MG/DOSE) 8 MG/3ML INJECT 2MG UNDER THE SKIN ONCE A WEEK for 28 Active Omeprazole 20 MG 1 capsule 1/2 to 1 h our before morning meal Orally twice a day for 30 days 12/29/2024 Active Aspirin 81 81 MG 1 tablet Orally Once a day for 30 day(s) 12/29/2024 Active Januvia 100 MG TAKE ONE TABLET BY M OUTH EVERY DAY for 90 Active Ozempic (1 MG/DOSE) 4 MG/3ML 1 mg Subcutaneous weekly 04/15/2024 Act queenie metFORMIN HCl 1000 MG TAKE ONE TABLET BY MOUTH TWICE A DAY WITH MEALS Active Fluticasone Propionate 50 MCG/ACT SPRAY 1 SPRAY INTO EACH NOSTRIL ONCE A DAY for 180 Active Nitrostat 0.4 MG 1 tablet under the tongue and allow to dissolve as needed. Take every 5 minutes up to 3 times if chest pain persists Sublingual Three times a day for 30 days 10/21/2024 Active Aspir-Low 81 MG 1 tablet Orally Once a day for 30 day(s) Active Xyzal Allergy 24HR 5 MG 1 tablet in the evening Orally Once a day for 30 day(s) Active Irbesartan-hydroCHLOROth iazide 150-12.5 MG TAKE ONE TABLET BY MOUTH EVERY DAY for 90 Active Finasteride 5 MG 1 tablet Orally Once a day Active Montelukast Sodium 10 MG TAKE ONE TABLET BY MOUTH EVERY EVENING for 90 Active OneTouch Ultra Test TEST BLOOD GLUCOSE T WICE A DAY for 50 Active OneTouch Delica Lancing Dev as directed for 50 03/03/2013 Active Vital Signs Blood pressure systolic 112 mm Hg 01/24/20 25 Blood pressure diastolic 60 mm Hg 025 Height 70 in 01/23/2025 Weight 180 lbs 01/23/2025 BMI 25.82 kg/m2 01/23/2025 weight is down 6 pounds [facility] 12-29-24 Encounters Encounter Location Date Provider Diagnosis Vini Mendoza MD [address] [place] [phone] 01/23/2025 Vini Mendoza Anemia D64.9 Assessments Encounter Date Diagnosis (ICD Code) Assessment Notes Treatment Notes Treatment Clinical Notes Section Notes 01/23/2025 Anemia (ICD-10 - D64.9) pending labs Plan Of Treatment Treatment Notes Assessment Notes Anemia pending labs Next Appt Details Follow Up: 1 Week, Reason: Provider Name:Vini Moscoso ier, 02/23/2025 09:15:00 AM, [address], [address], [place], [place], [phone], Provider Name:Vini Moscoso ier, 06/29/2025 07:45:00 AM, [address], [address], [place], [place], [phone], Provider Name:Vini Moscoso ier, 07/06/2025 09:30:00 AM, [address], [address], [place], [phone], Progress Notes * REJIDeacon VILLALTADOB:[birth year] (84 yo M)Acc No.[id number]:01/23/2025 Patient: Deacon IRVIN Provider: Galina Mendoza MD :1940 A ge:84 Y S ex:Male Date:01/23/2025 Address:[address] [place] [address], [place], [phone] Subjective: * Chief Complaints: * 1 . PH/TCM. * HPI: S ymptom(s): patient is a 84 yo male here for transitional care management visit. Discharge summary has been reviewed and medications reconcilled. had upper endo and negative. . if blood count is down is going to use camera/ got 2 units of blood. had felt better when first getting out of the hospital. weak later felt weak again and is using walker. * ROS: G eneral/Constitutional: Denies C hills. D enies F atigue. D enies F ever. D enies H eadache. E NT: Denies S ore throat. R espiratory: Denies C ough. D enies S hortness of breath at rest. D enies S hortness of breath with exertion. C ardiovascular: Denies C hest pain at rest. D enies C hest pain with exertion. D enies D izziness. D enies P alpitations. D enies S hortness of breath. G astrointestinal: Denies B lood in stool. A dmits D ecreased appetite. D enies D iarrhea. A dmits N ausea. D enies R ectal bleeding. ? * Medical History: c olonoscopy 07/2014 repeat in 3 years; colonoscopy 01/02/16 w/ Dr. Justin; colonoscopy done 02/11/[address] Justin, no futher testing needed.01/26/24 Colonoscopy, pending biopsy. * Medications: T aking OneTouch Ultra Test Strip TEST BLOOD GLUCOSE TWICE A DAY , Taking OneTouch Delica Lancing Dev Miscellaneous as directed , Taking Aspir-Low 81 MG Tablet Delayed Release 1 tablet Orally Once a day , Taking Xyzal Allergy 24HR 5 MG Tablet 1 tablet in the evening Orally Once a day , Taking Montelukast Sodium 10 MG Tablet TAKE ONE TABLET BY MOUTH EVERY EVENING , Taking Irbesartan-hydroCHLOROthiazide 150-12.5 MG Tablet TAKE ONE TABLET BY MOUTH EVERY DAY , Taking Finasteride 5 MG Tablet 1 tablet Orally Once a day , Taking Fluticasone Propionate 50 MCG/ACT Suspension [...] Pen-injector 1 mg Subcutaneous weekly , Taking metFORMIN HCl 1000 MG Tablet TAKE ONE TABLET BY MOUTH TWICE A DAY WITH MEALS , Taking Januvia 100 MG Tablet TAKE ONE TABLET BY MOUTH EVERY DAY , Taking Clopidogrel Bisulfate 75 MG Tablet 1 tablet Orally Once a day , Taking Eliquis 5 MG Tablet as directed Orally Twice a day , Taking Omeprazole 20 MG Capsule Delayed Release 1 capsule 1/2 to 1 hour before morning meal Orally twice a day , Taking Aspirin 81 81 MG Tablet Delayed Release 1 tablet Orally Once a day , Taking Ozempic (2 MG/DOSE) 8 MG/3ML Solution Pen- injector INJECT 2MG UNDER THE SKIN ONCE A WEEK , Taking Metoprolol Succinate ER 50 MG Tablet Extended Release 24 Hour TAKE ONE TABLET BY MOUTH EVERY DAY , Taking Atorvastatin Calcium 40 MG Tablet TAKE ONE TABLET BY MOUTH EVERY DAY Orally , Taking Metoprolol Tartrate 25 MG Tablet 1/2 tablet with food Orally Twice a day , Not-Taking/PRN Ozempic (0.25 or 0.5 MG/DOSE) 2 MG/3ML Solution Pen-injector as directed Subcutaneous 0.25 mg weekly fminth then .5mg weekly , Not-Taking/PRN Valtrex 1 GM Tablet 2 tablet Orally every 12 hrs , Medication List reviewed and reconciled with the patient * Allergies: N .K.D.A. Objective: * Vitals: H t: 70, Wt: 180, BMI:25.82, BP:112/60, Wt-k.65. weight is down 6 pounds since 12-29-24. * Examination: G eneral Examination: GENERAL APPEARANCE: a lert, well hydrated, in no distress.? HEAD: n ormocephalic. SKIN: g ood turgor, abnormal with a stitch sticking out of his leg. i washed it with alcohol and cut it at surface. HEART: n o murmurs, rubs, gallops, regular rate and rhythm.? LUNGS: n o wheezes, rales, rhonchi, good air movement, clear to auscultation bilaterally. ABDOMEN: s oft, nontender, nondistended. ? Assessment: * Assessment: 1. A nemia - D64.9 (Primary) Plan: * Treatment: * Procedure Codes: 3 6415 VENIPUNCT, ROUTINE* * Follow Up: 1 Week * * The named appointment provid er may or may not be the originator of this progress note, and it is not deemed complete until electronically signed by the appointment provider. Sign off status: Pending * Provider: Galina Mendoza MD Date: 0 01/23/2025 Generated for Meg brenner/Min/Donsmitting on: 0 02/02/2025 02:23 PM EDT History and Physical Notes * HPI (History of Present Illness) Category Sub-Category Detail Notes Category Not es Symptom(s) patient is a 84 yo male here for transitional care management visit. Discharge summary has been reviewed and medications reconcilled. had upper endo and negative. . if blood count is down is going to use camera/ got 2 units of blood. had felt better when first getting out of the hospital. weak later felt weak again and is using walker. Examination Category Sub-Category Detail Notes Category Not es General Examination GENERAL APPEARANCE: alert, w ell hydrated, in no distress HEAD: normocephalic HEART: no murmurs, rubs, ga llops, regular rate and rhythm LUNGS: no wheezes, rales, r honchi, good air movement, clear to auscultation bilaterally ABDOMEN: soft, nontender, non distended SKIN: good turgor, abnorma l with a stitch sticking out of his leg. i washed it with alcohol and cut it at surface
--- OUTSIDE RECORDS SUMMARY | 2025-01-25 05:20 | XMS_ITS ---
Author Organization [facility] Address [address] [place] [address] Care Team Providers Care Strapping Machine Operator Name Role Phone Vini Mendoza MD Primary Care Provider Jennifer Justin Jr, Cedrick Blank REASON FOR VISIT fam hx colon ca, anemia Encounters Encounter Location Date Provider Diagnosis [facility] [address] [facility] [address] [place] [phone] 01/25/2025 Cedrick Justin Jr Plan Of Treatment Next Appt Details Provider Name:Cedrick licona Jr, 03/27/2025 02:15:00 PM, [address], [address], [place], [address], Progress Notes * TOMEKA OLIVIERDOB:[birth year] (84 yo M)Acc No.[id number]:01/25/2025 Progress Notes Patient: TOMEKA IRVIN Provider: Jerica Justin MD :1940 A ge:84 Y S ex:Male Date:01/25/2025 Address:[address] [place], [place] [id number] Pcp:Vini Mendoza MD Subjective: * Chief Complaints: [...] 0 01/25/2025 Generated for Meg brenner/Min/Derick on: 0 02/02/2025 02:24 PM EDT
--- OUTSIDE RECORDS SUMMARY | 2025-01-27 23:59 | XMS_ITS | Continuity of Care Document ---
Author Organization [facility] Sylvia leland Address [address] [place] [address]- Care Team Providers Care Floor Coverer Apprentice Name Role Phone Kelly RIGGS, Vini Primary Care Physician [phone] Encounter [facility] Date(s): 12/28/24 - 01/27/25 [facility] [address] [place] [address] Drive [address] [place], [place] [address] Encounter Type: Triage Allergies, Adverse Reactions, Alerts [...] opioid drug. Start Date: 12/14/24 Status: Ordered Medication Dispense Status: Completed Total Allowed Fills: 1 Fills Dispensed: 0 Alcohol Pads See Instructions, # 200 each, Refills 5, Tot. Refills 5, Maintenance, use as directed for Type 1 Diabetes Mellitus, 12/14/24 11:59:00 AM EDT, Supply, 178, cm, 12/14/24 11:32:00 EDT, Height, 85.9, kg, 12/09/24 6:57:00 EDT, Dry Weight Start Date: 12/14/24 Stop Date: 06/12/25 Status: Ordered Medication Dispense Status: Completed Quantity: 200.0 Unit: each Total Allowed Fills: 6 Fills Dispensed: 0 apixaban 5 mg oral tablet = 5 mg, By Mouth, 2 times a day, # 60 tablet, 0 Refills, Maintenance, 12/14/24 11:23:00 AM EDT, Tablet, [facility], Partial fill upon patient request if the prescription is for a schedule II opioid drug., 178, cm, 12/14/24 7:56:00 EDT, Height, 85.9, kg, 12/09/24 6:57:00 EDT, Dry Weight Start Date: 12/14/24 Stop Date: 01/13/25 Status: Ordered Medication Dispense Status: Completed Quantity: 60.0 Unit: tablet Total Allowed Fills: 1 Fills Dispensed: 0 atorvastatin 40 mg oral tablet 1 tablet = 40 mg, By Mouth, Daily, # 30 tablet, 0 Refills, Maintenance, 12/14/24 11:20:00 AM EDT, Tablet, [facility], Partial fill upon patient request if the prescription is for a schedule II opioid drug., 178, cm, 12/14/24 7:56:00 EDT, Height, 85.9, kg, 12/09/24 6:57:00 EDT, Dry Weight Start Date: 12/14/24 Stop Date: 01/13/25 Status: Ordered Medication Dispense Status: Completed Quantity: 30.0 Unit: tablet Total Allowed Fills: 1 Fills Dispensed: 0 clopidogrel 75 mg oral tablet 75 mg, By Mouth, Daily, # 30 tablet, Refills 0, Tot. Refills 0, Maintenance, 12/14/24 11:23:00 AM EDT, Route to Pharmacy Electronically, [facility], Partial fill upon patient request if the prescription is for a schedule II opioid drug., 178, cm, 12/14/24 7:56:00 EDT, Height, 85.9, kg,12/09/24 6:57:00 EDT, Dry Weight Start Date: 12/14/24 Stop Date: 01/13/25 Status: Ordered Medication Dispense Status: Completed Quantity: 30.0 Unit: tablet Total Allowed Fills: 1 Fills Dispensed: 0 finasteride 5 mg oral tablet 1 tablet = 5 mg, By Mouth, Daily, # 30 tablet, 0 Refills, Maintenance, 12/14/24 11:21:00 AM EDT, Tablet, [facility], Partial fill upon patient request if the prescription is for a schedule II opioid drug., 178, cm, 12/14/24 7:56:00 EDT, Height, 85.9, kg, 12/09/24 6:57:00 EDT, Dry Weight Start Date: 12/14/24 Status: Ordered Medication Dispense Status: Completed Quantity: 30.0 Unit: tablet Total Allowed Fills: 1 Fills Dispensed: 0 fluticasone 50 mcg/inh nasal spray 1 sprays = 50 mcg, Nares, Both, Daily in AM, # 16 Gm, 0 Refills, Maintenance, 12/14/24 11:21:00 AM EDT, Nasal [place], [facility], Partial fill upon patient request if the prescription is for a schedule II opioid drug., 1 sprays Nares, Both Daily in AM, 178, cm, 12/14/24 7:56:00 EDT, Height, 85.9, kg, 12/09/24 6:57:00 EDT, Dry Weight Start Date: 12/14/24 Status: Ordered Medication Dispense Status: Completed Quantity: 16.0 Unit: g Total Allowed Fills: 1 Fills Dispensed: 0 Freestyle Lancets See Instructions, # 200 each, Refills 5, Tot. Refills 5, Maintenance, Check your blood glucose oncedaily in the morning, 12/14/24 11:59:00 AM EDT, Supply, 178, cm, 12/14/24 11:32:00 EDT, Height, 85.9, kg, 12/09/24 6:57:00 EDT, Dry Weight Start Date: 12/14/24 Stop Date: 06/12/25 Status: Ordered Medication Dispense Status: Completed Quantity: 200.0 Unit: each Total Allowed Fills: 6 Fills Dispensed: 0 Freestyle Lite Monitor See Instructions, # 3 each, Refills 2, Tot. Refills 2, Maintenance, Check your blood glucose once daily in the morning, 12/14/24 11:59:00 AM EDT, Supply, 178, cm, 12/14/24 11:32:00 EDT, Height, 85.9, kg, 12/09/24 6:57:00 EDT, Dry Weight Start Date: 12/14/24 Stop Date: 09/10/25 Status: Ordered Medication Dispense Status: Completed Quantity: 3.0 Unit: each Total Allowed Fills: 3 Fills Dispensed: 0 Freestyle Lite Test Strips See Instructions, # 200 each, Tot. Refills 5, Maintenance, Check your blood glucose once daily in the morning, 12/14/24 11:59:00 AM EDT, Supply, 178, cm, 12/14/24 11:32:00 EDT, Height, 85.9, kg, 12/09/24 6:57:00 EDT, Dry Weight Start Date: 12/14/24 Stop Date: 01/13/25 Status: Ordered Medication Dispense Status: Completed Quantity: 200.0 Unit: each Total Allowed Fills: 6 Fills Dispensed: 0 furosemide 40 mg oral tablet 40 mg, 1, tablet, By Mouth, Daily, # 7 tablet, Refills 0, Tot. Refills 0, Maintenance, 12/14/24 11:24:00 AM EDT, Route to Pharmacy Electronically, [facility], Partial fill upon patient request if the prescription is for a schedule II opioid drug., 178, cm, 12/14/24 7:56:00 EDT, Height,85.9, kg, 12/09/24 6:57:00 EDT, Dry Weight Start Date: 12/14/24 Stop Date: 12/21/24 Status: Ordered Medication Dispense Status: Completed Quantity: 7.0 Unit: tablet Total Allowed Fills: 1 Fills Dispensed: 0 gabapentin 100 mg oral capsule 100 mg, By Mouth, 3 times a day, # 42 tablet, Refills 0, Tot. Refills 0, Maintenance, 12/14/24 11:23:00 AM EDT, Route to Pharmacy Electronically, [facility], Partial fill upon patient request if the prescription is for a schedule II opioid drug., 178, cm, 12/14/24 7:56:00 EDT, Height, 85.9, kg, 12/09/24 6:57:00 EDT, Dry Weight Start Date: 12/14/24 Stop Date: 12/28/24 Status: Ordered Medication Dispense Status: Completed Quantity: 42.0 Unit: tablet Total Allowed Fills: 1 Fills Dispensed: 0 metFORMIN 1000 mg oral tablet 1 tablet = 1,000 mg, By Mouth, 2 times a day, # 60 tablet, 0 Refills, Maintenance, 12/14/24 11:33:00AM EDT, Tablet, [facility], Partial fill upon patient request if the prescription is for a schedule II opioid drug., 178, cm, 12/14/24 11:32:00 EDT, Height, 85.9, kg, 12/09/24 6:57:00 EDT, Dry Weight Start Date: 12/14/24 Stop Date: 01/13/25 Status: Ordered Medication Dispense Status: Completed Quantity: 60.0 Unit: tablet Total Allowed Fills: 1 Fills Dispensed: 0 metoprolol 25 mg oral tablet 12.5 mg, By Mouth, 2 times a day, # 30 tablet, Refills 0, Tot. Refills 0, Maintenance, 12/14/24 11:21:00 AM EDT, Route to Pharmacy Electronically, [facility], Partial fill upon patient request if the prescription is for a schedule II opioid drug., 178, cm, 12/14/24 7:56:00 EDT, Height,85.9, kg, 12/09/24 6:57:00 EDT, Dry Weight Start Date: 12/14/24 Stop Date: 01/13/25 Status: Ordered Medication Dispense Status: Completed Quantity: 30.0 Unit: tablet Total Allowed Fills: 1 Fills Dispensed: 0 montelukast 10 mg oral tablet 10 mg, 1, tablet, By Mouth, Daily in PM, # 30 tablet, Refills 0, Tot. Refills 0, Maintenance, 12/14/24 11:22:00 AM EDT, Route to Pharmacy Electronically, [facility], Partial fill upon patient request if the prescription is for a schedule II opioid drug., 178, cm, 12/14/24 7:56:00 EDT, Height, 85.9, kg, 12/09/24 6:57:00 EDT, Dry Weight Start Date: 12/14/24 Status: Ordered Medication Dispense Status: Completed Quantity: 30.0 Unit: tablet Total Allowed Fills: 1 Fills Dispensed: 0 Ozempic 8 mg/3 mL (2 mg dose) subcutaneous solution = 2 mg, Subcutaneous Injection, Every week, in the abdomen, thigh, or upper arm, # 3 mL, 0 Refills,Maintenance, 12/14/24 1:07:00 PM EDT, Solution, Partial fill upon patient request if the prescription is for a schedule II opioid drug. Start Date: 12/14/24 Status: Ordered Medication Dispense Status: Completed Quantity: 3.0 Unit: mL Total Allowed Fills: 1 Fills Dispensed: 0 semaglutide 8 mg/3 mL (2 mg dose) [...] Dry Weight Start Date: 12/14/24 Status: Ordered Medication Dispense Status: Completed Quantity: 3.0 Unit: mL Total Allowed Fills: 1 Fills Dispensed: 0 Vashe Topical Solution 475 mL, Topically, Every 12 hours, 0 Refills, Maintenance, Solution Start Date: 12/14/24 Status: Ordered Medication Dispense Status: Completed Total Allowed Fills: 1 Fills Dispensed: 0 Patient Care team information Care Team Personnel Name: Vini Mendoza MD Position: Reference Physician Member Role: PCP Address: [address] [place] [address] Vini Mendoza [place] [address] Telecom: [phone] Name: Jessika Dia RN Position: S RN Member Role: Primary Care Nurse Name: Robert Fernández RN Position: [facility] RN Member Role: Primary Care Nurse Name: Kika Moore RN Position: S RN Member Role: Primary Care Nurse Care Team Related Persons Name: ROSETTE OLIVIER Name: PRINCE OLIVIER Name: TOMEKA OLIVIER Insurance Providers Guarantor name: Health Plan Information #: 1 Payer: [employer] MED[employer] ADV PPO Payer Identifier: LAUREN Member Number: [id number] Group Number: [id number] Subscriber Identifier: LAUREN Relationship to Subscriber: self Coverage Type: Medicare PPO Coverage Verification Date: LAUREN Telecom: LAUREN Address: [place] Health Plan Information #: 2 Payer: FOR LIFE Payer Identifier: LAUREN Member Number: [id number] Group Number: LAUREN Subscriber Identifier: LAUREN Relationship to Subscriber: self Coverage Type: For Life--Medicare Supplement Coverage Verification Date: LAUREN Telecom: LAUREN Address: [place]
--- OUTSIDE RECORDS SUMMARY | 2025-02-02 06:30 | XMS_ITS ---
Author Organization Vini Mendoza MD Address [address] [place] [phone] Care Team Providers Care Bar Tacker Name Role Phone Vini Mendoza Primary Care Provider Allergies No Known Allergies Results Component Value Reference Range Notes Complete Blood Count Auto Di ff (Not yet reviewed by provider) Interpretation: Performing Lab:[facility], [address] [place] [phone] Notes/Report: White Blood Count 6.9 4.8-10.8 X10*3/uL [...] NRBC Abs Auto 0.000 0.0-0.012 X10*3/uL Comprehensive [place]. Panel Fa st (Not yet reviewed by provider) Interpretation: Performing Lab:[facility], [address] [place] [phone] Notes/Report: Sodium 141 135-145 mmol/L Potassium 3.9 [...] 3.5-5.0 g/dL Alkaline Phosphatase 114 39-117 U/L REASON FOR VISIT 1 week Medications Medication [...] Location Date Provider Diagnosis Vini Mendoza MD [address] [place] [phone] 02/02/2025 Vini Mendoza Anemia D64.9 ; Weakness R53.1 and Encounter for administration of vaccine Z23 Assessments Encounter Date Diagnosis (ICD Code) Assessment Notes Treatment Notes Treatment Clinical Notes Section Notes 02/02/2025 Anemia (ICD-10 - D64.9) 02/02/2025 Weakness (ICD-10 - R53.1) 02/02/2025 Encounter for administration of vaccine (ICD-10 - Z23) HD flu vaccine administered Plan Of Treatment Treatment Notes Assessment Notes Encounter for administration of vaccine HD flu vaccine administered Pending Test Test Name Order Date Complete Blood Count Auto Diff 5 Comprehensive [place]. Panel Fast 5 Next Appt Details Follow Up: 3 Weeks, Reason: Provider Name:Vini ehrzog, 02/23/2025 09:15:00 AM, [address] [place] [address], [address], [phone], Provider Name:Vini herzog, 06/29/2025 07:45:00 AM, [address] [place] [address], [address], [phone], Provider Name:Vini herzog, 07/06/2025 09:30:00 AM, [address] [place] [address], [address], [phone], Progress Notes * GLASHEEN, ThomasDOB:[birth year] (84 yo M)Acc No.[id number]:02/02/2025 Progress Notes Patient: Deacon IRVIN Provider: Galina Mendoza MD :1940 A ge:84 Y S ex:Male Date:02/02/2025 Address:[address] [place] [address], MIKE Fernandez, [phone] Subjective: * Chief Complaints: * 1 . 1 week. * HPI: S ymptom(s): patient is a [...] D enies N ausea. * Medical History: c olonoscopy 07/2014 repeat [...] 24 Hour 0.5 tab twice a day , Taking Atorvastatin Calcium 40 MG Tablet TAKE ONE TABLET BY MOUTH EVERY DAY Orally , Not-Taking/PRN Ozempic (0.25 or 0.5 MG/DOSE) 2 MG/3ML Solution Pen-injector as directed Subcutaneous 0.25 mg weekly fminth then .5mg weekly , Not-Taking/PRN Valtrex 1 GM Tablet 2 tablet Orally every 12 hrs , Discontinued Metoprolol Tartrate 25 MG Tablet 1/2 tablet with food Orally Twice a day , Medication List reviewed and reconciled with [...] * Treatment: 2. W eakness L AB: Complete Blood Count Auto Diff (Collection Date & Time - 02/02/2025 10:30 AM) L AB: Comprehensive [place]. Panel Fast (Collection Date & Time - 02/02/2025 10:30 AM) 3. E ncounter for administration of vaccine Notes: HD flu vaccine administered * Immunizations: Influenza High Dose : 0.5 mL (Dose No:1) (Route: Intramuscular) given by Nel Borges , Office Staff on Left Deltoid * Procedure Codes: 3 6415 VENIPUNCT, ROUTINE*, 05132 FLU VACC PRSV FREE INC ANTIG, G0008 ADMN FLU VAC NO FEE SCHED SAME DAY * Preventive Medicine: Immunizations: I nfluenza H ave you had a flu shot since the most recent January 30? Y es. * Follow Up: 3 Weeks * * The named appointment provid er may or may not be the originator of this progress note, and it is not deemed complete until electronically signed by the appointment provider. Sign off status: Pending * Provider: Galina Mendoza MD Date: 02/02/2025 Generated for Meg brenner/Min/Jordenitting on: 02/02/2025 02:24 PM EDT History and Physical Notes * [...]
[2025-02-02 13:11] LABS: MANUAL DIFF FLAG NO
[2025-02-02 13:16] LABS: Hematocrit 30.7 % (42.0-52.0); Hemoglobin 9.0 g/dl (14.0-18.0); Imm Gran Abs Auto 0.02 X10*3/uL (0.00-0.03); Imm Gran Pct Auto 0.3 % (0.0-0.4); Lymphocytes Absolute Auto 1.3 X10*3/uL (1.2-4.9); Mean Corpuscular HGB Conc 29.3 g/dl (31.0-36.0); Mean Corpuscular Hemoglobin 23.4 pg (27.0-33.0); Mean Corpuscular Volume 79.7 fL (80.0-98.0); NRBC Abs Auto 0.000 X10*3/uL (0.0-0.012); NRBC Pct Auto 0.0 /100WBC (0.0-0.2); Platelet Count 270 X10*3/uL (160-400); Red Blood Count 3.85 X10*6/uL (4.60-5.80); White Blood Count 6.9 X10*3/uL (4.8-10.8)
[2025-02-02 13:34] LABS: Alanine Aminotransferase 160 U/L (0-40); Albumin Level 3.5 g/dL (3.5-5.0); Alkaline Phosphatase 114 U/L (39-117); Anion Gap 12 (12-20); Aspartate Amino Transferase 350 U/L (5-37); Blood Urea Nitrogen 10 mg/dL (9-16); Calcium 8.2 mg/dL (8.4-10.2); Carbon Dioxide 26 mmol/L (22-29); Chloride 107 mmol/L (96-108); Estimated Glomerular Filt Rate > 60; Potassium 3.9 mmol/L (3.3-5.1); Sodium 141 mmol/L (135-145); Total Protein 5.9 g/dL (6.5-8.0)
--- OUTSIDE RECORDS SUMMARY | 2025-02-02 14:25 | XMS_ITS | Clinical Summary ---
Author Organization [facility] Address [address] [place] [address] Phone Care Team Providers Care Data Assistant Name Role Phone Pcp, Unknown Primary Care Provider Unavailabl e Encounters Date Type Department Care Team Description 12/21/2024 Orders Only [facility] [address], [address] [place] [address] ProviderLupe MD from Last 3 Months Social [...] Final Result from Last 3 Months Insurance [facility] MEDICARE REPLACEMENT [facility] MEDICARE SUPPLEMENT [facility] MEDICARE REPLACEMENT [employer] [facility] MEDICARE SUPPLEMENT [facility] Address: [address] [phone] [facility] MEDICARE REPLACEMENT [employer] [facility] MEDIC[facility] FOR [facility] MEDICARE SUPPLEMENT [facility] Address: [address] [address] [facility] FOR [facility] RE[facility] FOR [facility] MEDICARE SUPPLEMENT [facility] Address: [facility] [address] [place] [address] Care Teams Data Assistant Relationship Specialty Start Date End Date Pcp, Unknown PCP - General 12/21/24 Additional Source Comments The information contained in this document represents components of the legal health record. It is not the complete legal health record.[facility]
--- OUTSIDE RECORDS SUMMARY | 2025-02-02 14:25 | XMS_ITS | Patient Health Record ---
Author Organization [facility] Address [address] [place] [address] Care Team Providers Care Junior [employer] Name Role Phone Vini Mendoza MD Primary Care Provider Cedrick Becerra Jr Unavailable Allergies Allergen (clinical drug ingredient) Drug/Non Drug Allergy documented on EMR Reaction Allergy Type Onset Date Status seasonal (uncoded) Unknown Allergy A ctive Results Component Value Reference Range Notes US abdomen comp w elastograp hy Reviewed date:01/10/2025 12:58:18 PM Interpretation: Performing Lab: Notes/Report: [address] [address] Ultrasound Report Signed Patient: Deacon Romo MR#: [id number] : 1940 Acct:[id number] Age/Sex: 84 / M ADM Date: 01/06/25 Loc: [facility] [id number]: Krishna Lemon MD Ordering Physician: Leo Guo MD Date of Service: 01/07/25 Procedure(s): US abdomen comp w elastography Accession Number(s): [id number] cc: Vini Mendoza MD; Leo Guo MD EXAMINATION: US COMPLETE ABDOMEN WITH LIVER ELASTOGRAPHY CLINICAL INFORMATION: Elevated LFTs COMPARISON: Ultrasound abdomen 01/02/2023 TECHNIQUE: Real-time imaging of the abdominal viscera. Noninvasive ultrasound liver fibrosis assessment is performed using b3 bio ElastPQ point quantification shear wave elastography (pSWE) [...] of Radiologists in Ultrasound Liver Stiffness Thresholds (2020): LIVER STIFFNESS THRESHOLDS: *Liver Stiffness equal or [...] signed by Checo Bronson MD in OV> 01/09/25712 DD/ 9 TD/TT: 01/07/25829 [employer]: LISA Complete Blood Count Auto Di ff Reviewed date:01/10/2025 12:57:13 PM Interpretation: Performing Lab:[facility], [address] [place] [phone] Notes/Report: White Blood Count 6.1 4.8-10.8 X10*3/uL [...] Pathology Reviewed date:01/15/2025 10:51:17 PM Interpretation: Performing Lab:[facility], [address] [place] [phone] Notes/Report: Complete Blood Count Auto Di ff Reviewed date:01/10/2025 12:56:35 PM Interpretation: Performing Lab:[facility], [address] [place] [phone] Notes/Report: White Blood Count 4.9 4.8-10.8 X10*3/uL [...] g Reviewed date:01/10/2025 12:56:52 PM Interpretation: Performing Lab:[address] [phone] Notes/Report: Sodium 145 135-145 mmol/L Potassium 3.8 [...] Pathology Reviewed date:01/12/2025 12:57:41 PM Interpretation: Performing Lab:[address] [phone] Notes/Report: Reason For Referral No Information Medications [...] Problem Status W/U Status Risk Notes Problem 715937714 Colon cancer screening (Z12.11) Active confirmed Problem 381108095 Personal history of colonic polyps (Z86.010) Active confirmed Problem Anemia (558039710) Anemia (D64.9) Active confirmed Problem 220706070 Long-term use of aspirin therapy (Z79.82) Active confirmed Problem Chronic gastritis (0745158) Chronic gastritis (K29.50) Active confirmed Problem 464671231 Long-term curren t use of high risk medication other than anticoagulant (Z79.899) Active confirmed Problem 120381464 FH: colon cancer (Z80.0) Active confirmed Problem 53339613 Hypertension, unspecified type (I10) Active confirmed Problem Anemia (279368729) Acute anemia (D64.9) Active confirmed Vital Signs Temperature 97.8 degrees Fahrenheit 11/09/2024 Blood pressure diastolic 01 mm Hg 11/09/2024 Height 69.5 in 11/09/2024 Blood pressure systolic 001 mm Hg 11/09/2024 Weight 193 lbs 11/09/2024 BMI 28.09 kg/m2 11/09/2024 Encounters Encounter Location Date Provider Diagnosis [facility] [place] [address] [place], [place] [phone] 01/10/2025 Cedrick Justin Jr [facility] [address] [place] [phone] 11/09/2024 Cedrick Justin Jr Colon polyps K63.5 ; Anemia D64.9 and Colon cancer screening Z12.11 [facility] [address] [place] [phone] 01/03/2025 Cedrick Justin Jr [facility] [address] [place] [address] 01/08/2025 Cedrickmaikel Justin Jr [facility] [address] [place] [address] 01/12/2025 Cedrick Justin Jr Assessments Encounter Date Diagnosis (ICD Code) Assessment Notes Treatment Notes Treatment Clinical Notes Section Notes 11/09/2024 Colon polyps (ICD-10 - K63.5) At [...] He has no upper GI symptoms. 11/09/2024 Colon cancer screening (ICD-10 - Z12.11) [...] COLONOSCOPY 12/09/2023 Next Appt Details Provider Name:Cedrick lciona Jr, 03/27/2025 02:15:00 PM, [address], [address], [place], [address], Insurance Providers Payer Name Payer Address Payer Phone Subscriber Number Group Number Insured Name Patient Relationship to Insured Coverage Start Date Coverage End Date [facility] [address] [place], [place] [id number] [phone] [id number] DEACON ROMO Self - patient is the insured [employer] [address] [place] [address] [phone] [id number] DEACON ROMO Self - patient is the [...]
--- OUTSIDE RECORDS SUMMARY | 2025-02-02 14:25 | XMS_ITS | Patient Health Record ---
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 Name Role Phone Vini Mendoza Primary Care Provider Allergies No Known Allergies Results Component Value Reference Range Notes Hemoglobin A1c Reviewed date:02/22/2024 09:50:23 AM Interpretation: Performing Lab: Notes/Report: Hemoglobin A1c 8.0 Hemoglobin A1c Reviewed date:10/21/2024 09:43:33 AM Interpretation: Performing Lab: Notes/Report: Hemoglobin A1c 6.2 Complete Blood Count Auto Di ff Reviewed date:07/04/2024 07:18:28 AM Interpretation:see back 07-01-24 Performing Lab:[facility], [address] [place] [phone] Notes/Report: White Blood Count 7.9 4.8-10.8 X10*3/uL [...] NRBC Abs Auto 0.000 0.0-0.012 X10*3/uL Comprehensive Oxford. Panel Fa st Reviewed date:06/26/2024 04:58:35 PM Interpretation: Performing Lab:[facility], [address] [place] [phone] Notes/Report: Sodium 141 135-145 mmol/L Potassium 4.8 [...] Panel Reviewed date:06/25/2024 12:29:18 PM Interpretation: Performing Lab:[facility], [address] [place] [phone] Notes/Report: Triglycerides 138 <150 mg/dL Desirable Triglyceride: [...] (Free>4and<10) Reviewed date:06/25/2024 12:29:08 PM Interpretation: Performing Lab:[facility], [address] [place] [phone] Notes/Report: PSA,Total (Free>4and<10) 0.67 0.00-4.00 ng/mL A [...] Random Reviewed date:06/25/2024 12:28:59 PM Interpretation: Performing Lab:[address] [phone] Notes/Report: Creatinine Urine 225.05 Microalbumin Urine 44.0 Microalbum/Creatinine Ratio Ur 19.5 <30 ug/mg cr Albumin/Creatinine Ratio Reference Ranges: Normal: < 30 ug/mg creatinine Microalbuminuria: 30 - 300 ug/mg creatinine Clinical Albuminuria: > 300 ug/mg creatinine Hemoglobin A1c Reviewed date:06/24/2024 01:15:12 PM Interpretation: Performing Lab:[address] [phone] Notes/Report: Hemoglobin A1c % 6.9 <6.0 % [...] average glucose, using the formula of the [id number] Average Glucose study (ADAG), Diabetes Care, Vol.31,#8, Dec. 2007 UA ClnCatch+Micro w/rflx Cul t Reviewed date:06/26/2024 05:02:46 PM Interpretation: Performing Lab:[address] [phone] Notes/Report: Urine, Clean Catch Color Urine Yellow Appearance Urine Clear PH 5.5 5.0-9.0 Glucose Urine UA Negative Negative mg/dL Urine Blood Negative Negative Specific Jean - Urine >= 1.030 1.005-1.025 Urine Protein Trace Neg-Trace mg/dL Urine Ketones Trace Negative mg/dL Nitrite Urine Negative Negative Leukocyte Esterase Urine Negative Negative RBC Urine 0-2 0-2 /HPF WBC Urine 0-5 0-5 /HPF Squamous Epithelial Cell Urine 0-2 0-2 /HPF Bacteria Urine None Seen None Seen Hyaline Casts Urine 0-2 0-2 /LPF Complete Blood Count Auto Di ff Reviewed date:10/14/2024 12:43:08 PM Interpretation: Performing Lab:[facility], [address] [place] [phone] Notes/Report: White Blood Count 7.0 4.8-10.8 X10*3/uL [...] X10*3/uL NRBC Abs Auto 0.020 0.0-0.012 X10*3/uL IRON PROFILE Reviewed date:10/21/2024 10:14:21 AM Interpretation:CBACK 10/21 Performing Lab:[facility], [address] [place] [phone] Notes/Report: Iron 20 45-160 mcg/dL Total Iron Binding Capacity 364 228-428 mcg/dL Percent Iron Saturation 5 15-50 % Unsaturated Iron Binding 344 Complete Blood Count Auto Di ff Reviewed date:01/02/2025 01:14:08 PM Interpretation: Performing Lab:[facility], [address] [place] [phone] Notes/Report: White Blood Count 9.6 4.8-10.8 X10*3/uL Red Blood Count 3.09 4.60-5.80 X10*6/uL Hemoglobin 7.6 14.0-18.0 g/dl Hematocrit 25.8 42.0-52.0 % Mean Corpuscular Volume 83.5 80.0-98.0 fL Mean Corpuscular Hemoglobin 24.6 27.0-33.0 pg Mean Corpuscular HGB Conc 29.5 31.0-36.0 g/dl Red Cell Distribution Width 19.0 11.0-16.0 % Platelet Count 303 160-400 X10*3/uL Mean Platelet Volume 11.1 9.4-12.4 fL Neutrophils Percent Auto 60.7 45-73 % Imm Gran Pct Auto 0.4 0.0-0.4 % Lymphocytes Percent Auto 22.6 20-40 % Monocytes Percent Auto 9.6 2-11 % Eosinophils Percent Auto 6.1 0-4 % Basophils Percent Auto 0.6 0-2 % NRBC Pct Auto 0.0 0.0-0.2 /100WBC Neutrophils Absolute Auto 5.8 2.0-8.3 x10*3/uL Imm Gran Abs Auto 0.04 0.00-0.03 X10*3/uL Lymphocytes Absolute Auto 2.2 1.2-4.9 X10*3/uL Monocytes Absolute Auto 0.9 0.1-1.2 X10*3/uL Eosinophils Absolute Auto 0.6 0.0-0.4 X10*3/uL Basophils Absolute Auto 0.1 0.0-0.2 X10*3/uL NRBC Abs Auto 0.000 0.0-0.012 X10*3/uL Complete Blood Count Auto Di ff Reviewed date:01/05/2025 03:11:21 PM Interpretation: Performing Lab:[address] [phone] Notes/Report: White Blood Count 10.7 4.8-10.8 X10*3/uL [...] 0.0-0.2 /100WBC Neutrophils Absolute Auto 6.6 2.0-8.3 x10*3/uL Imm Gran Abs Auto 0.06 0.00-0.03 X10*3/uL Lymphocytes Absolute Auto 2.4 1.2-4.9 X10*3/uL Monocytes Absolute Auto 0.9 0.1-1.2 X10*3/uL Eosinophils Absolute Auto 0.7 0.0-0.4 X10*3/uL Basophils Absolute Auto 0.1 0.0-0.2 X10*3/uL NRBC Abs Auto 0.000 0.0-0.012 X10*3/uL Complete Blood Count Auto Di ff Reviewed date:01/23/2025 12:30:04 PM Interpretation: Performing Lab:[facility], [address] [place] [phone] Notes/Report: White Blood Count 9.6 4.8-10.8 X10*3/uL [...] 0.0-0.2 /100WBC Neutrophils Absolute Auto 6.4 2.0-8.3 x10*3/uL Imm Gran Abs Auto 0.05 0.00-0.03 X10*3/uL Lymphocytes Absolute Auto 1.9 1.2-4.9 X10*3/uL Monocytes Absolute Auto 0.8 0.1-1.2 X10*3/uL Eosinophils Absolute Auto 0.4 0.0-0.4 X10*3/uL Basophils Absolute Auto 0.1 0.0-0.2 X10*3/uL NRBC Abs Auto 0.000 0.0-0.012 X10*3/uL Complete Blood Count Auto Di ff (Not yet reviewed by provider) Interpretation: Performing Lab:[facility], [address] [place] [phone] Notes/Report: White Blood Count 6.9 4.8-10.8 X10*3/uL [...] 0.0-0.2 /100WBC Neutrophils Absolute Auto 4.8 2.0-8.3 x10*3/uL Imm Gran Abs Auto 0.02 0.00-0.03 X10*3/uL Lymphocytes Absolute Auto 1.3 1.2-4.9 X10*3/uL Monocytes Absolute Auto 0.6 0.1-1.2 X10*3/uL Eosinophils Absolute Auto 0.2 0.0-0.4 X10*3/uL Basophils Absolute Auto 0.1 0.0-0.2 X10*3/uL NRBC Abs Auto 0.000 0.0-0.012 X10*3/uL Comprehensive Oxford. Panel Fa st (Not yet reviewed by provider) Interpretation: Performing Lab:[facility], [address] [place] [phone] Notes/Report: Sodium 141 135-145 mmol/L Potassium 3.9 [...] 3.5-5.0 g/dL Alkaline Phosphatase 114 39-117 U/L Glucose, finger stick Reviewed date:02/22/2024 09:47:31 AM Interpretation: Performing Lab: Notes/Report: Value 159 Glucose, finger stick Reviewed date:04/15/2024 09:07:26 AM Interpretation: Performing Lab: Notes/Report: Value 125 Complete Blood Count Auto Di ff Reviewed date:07/01/2024 04:25:27 PM Interpretation: Performing Lab:[facility], [address] [place] [phone] Notes/Report: White Blood Count 10.5 4.8-10.8 X10*3/uL [...] PROFILE Reviewed date:07/03/2024 03:27:36 PM Interpretation: Performing Lab:[facility], [address] [place] [phone] Notes/Report: Iron 35 45-160 mcg/dL Total Iron Binding Capacity 346 228-428 mcg/dL Percent Iron Saturation 10 15-50 % Unsaturated Iron Binding 311 Glucose, finger stick Reviewed date:10/21/2024 09:36:02 AM Interpretation: Performing Lab: Notes/Report: Value 124 Glucose, finger stick Reviewed date:11/18/2024 09:14:41 AM Interpretation: Performing Lab: Notes/Report: Value 118 Complete Blood Count Auto Di ff Reviewed date:12/30/2024 01:50:51 PM Interpretation: Performing Lab:[facility], [address] [place] [phone] Notes/Report: White Blood Count 8.8 4.8-10.8 X10*3/uL Red Blood Count 3.21 4.60-5.80 X10*6/uL Hemoglobin 7.8 14.0-18.0 g/dl Hematocrit 26.7 42.0-52.0 % Mean Corpuscular Volume 83.2 80.0-98.0 fL Mean Corpuscular Hemoglobin 24.3 27.0-33.0 pg Mean Corpuscular HGB Conc 29.2 31.0-36.0 g/dl Red Cell Distribution Width 19.1 11.0-16.0 % Platelet Count 324 160-400 X10*3/uL Mean Platelet Volume 11.0 9.4-12.4 fL Neutrophils Percent Auto 66.3 45-73 % Imm Gran Pct Auto 0.5 0.0-0.4 % Lymphocytes Percent Auto 18.8 20-40 % Monocytes Percent Auto 6.8 2-11 % Eosinophils Percent Auto 6.7 0-4 % Basophils Percent Auto 0.9 0-2 % NRBC Pct Auto 0.0 0.0-0.2 /100WBC Neutrophils Absolute Auto 5.8 2.0-8.3 x10*3/uL Imm Gran Abs Auto 0.04 0.00-0.03 X10*3/uL Lymphocytes Absolute Auto 1.7 1.2-4.9 X10*3/uL Monocytes Absolute Auto 0.6 0.1-1.2 X10*3/uL Eosinophils Absolute Auto 0.6 0.0-0.4 X10*3/uL Basophils Absolute Auto 0.1 0.0-0.2 X10*3/uL NRBC Abs Auto 0.000 0.0-0.012 X10*3/uL Liver Panel Reviewed date:12/30/2024 08:57:33 AM Interpretation: Performing Lab:[facility], [address] [place] [address] Notes/Report: Bilirubin Total 0.7 0.0-1.0 mg/dL Bilirubin Direct 0.3 0.0-0.5 mg/dL Aspartate Amino Transferase 157 5-37 U/L Alanine Aminotransferase 136 0-40 U/L Total Protein 5.7 6.5-8.0 g/dL Albumin Level 3.2 3.5-5.0 g/dL Alkaline Phosphatase 148 39-117 U/L Occult Blood, Stool, Guaiac Reviewed date:07/20/2024 08:37:52 AM Interpretation:Negative Performing Lab: Notes/Report: Negative Occult Blood, Stool, Guaiac NegX3 Complete Blood Count Auto Di ff Reviewed date:12/30/2024 11:59:39 AM Interpretation: Performing Lab:[facility], [address] [place] [address] Notes/Report: White Blood Count 7.3 4.8-10.8 X10*3/uL [...] 4.4 2.0-8.3 x10*3/uL Imm Gran Abs Auto 0.04 0.00-0.03 X10*3/uL Lymphocytes Absolute Auto 1.8 1.2-4.9 X10*3/uL Monocytes Absolute Auto 0.4 0.1-1.2 X10*3/uL Eosinophils Absolute Auto 0.5 0.0-0.4 X10*3/uL Basophils Absolute Auto 0.1 0.0-0.2 X10*3/uL NRBC Abs Auto 0.000 0.0-0.012 X10*3/uL Vitamin B12 Reviewed date:07/03/2024 03:27:05 PM Interpretation: Performing Lab:[facility], [address] [place] [phone] Notes/Report: Vitamin B12 245 200-900 pg/mL NORMAL 200-900 PG/ML INDETERMINATE 160-199 PG/ML DEFICIENT < 160 PG/ML Folate Reviewed date:07/03/2024 03:27:13 PM Interpretation: Performing Lab:[facility], [address] [place] [phone] Notes/Report: Folate 11.5 > or = 4.0 ng/mL Reference Values: > or = 4.0 ng/mL < 4.0 ng/mL suggests folate deficiency Methotrexate, aminopterin and folinic acid (leucovorin) are chemotherapeutic agents whose molecular structures are similar to folate; therefore, the [employer] folate assay cannot be used for patients using these drugs. Complete Blood Count Auto Di ff Reviewed date:12/22/2024 12:43:17 PM Interpretation: Performing Lab:[facility], [address] [place] [phone] Notes/Report: White Blood Count 17.2 4.8-10.8 X10*3/uL Red Blood Count 3.68 4.60-5.80 X10*6/uL Hemoglobin 9.2 14.0-18.0 g/dl Hematocrit 30.2 42.0-52.0 % Mean Corpuscular Volume 82.1 80.0-98.0 fL Mean Corpuscular Hemoglobin 25.0 27.0-33.0 pg Mean Corpuscular HGB Conc 30.5 31.0-36.0 g/dl Red Cell Distribution Width 19.3 11.0-16.0 % Platelet Count 504 160-400 X10*3/uL Mean Platelet Volume 10.7 9.4-12.4 fL Neutrophils Percent Auto 75.7 45-73 % Imm Gran Pct Auto 0.8 0.0-0.4 % Lymphocytes Percent Auto 12.8 20-40 % Monocytes Percent Auto 5.8 2-11 % Eosinophils Percent Auto 4.1 0-4 % Basophils Percent Auto 0.8 0-2 % NRBC Pct Auto 0.0 0.0-0.2 /100WBC Neutrophils Absolute Auto 13.0 2.0-8.3 x10*3/uL Imm Gran Abs Auto 0.13 0.00-0.03 X10*3/uL Lymphocytes Absolute Auto 2.2 1.2-4.9 X10*3/uL Monocytes Absolute Auto 1.0 0.1-1.2 X10*3/uL Eosinophils Absolute Auto 0.7 0.0-0.4 X10*3/uL Basophils Absolute Auto 0.1 0.0-0.2 X10*3/uL NRBC Abs Auto 0.000 0.0-0.012 X10*3/uL Comprehensive Met. Panel Reviewed date:12/22/2024 01:05:46 PM Interpretation: Performing Lab:[facility], [address] [place] [phone] Notes/Report: Sodium 139 135-145 mmol/L Potassium 4.4 3.3-5.1 mmol/L Chloride 103 96-108 mmol/L Carbon Dioxide 26 22-29 mmol/L Anion Gap 14 12-20 Blood Urea Nitrogen 42 9-16 mg/dL Creatinine 1.17 0.5-1.4 mg/dL Estimated Glomerular Filt Rate 60 Chronic Kidney Disease: Estimated GFR < 60 mL/min/1.73m2 Severe Kidney Disease: Estimated GFR < 15 mL/min/1.73m2 Glucose Random 110 60-115 mg/dL Calcium 8.5 8.4-10.2 mg/dL Bilirubin Total 1.6 0.0-1.0 mg/dL Aspartate Amino Transferase 46 5-37 U/L Alanine Aminotransferase 65 0-40 U/L Total Protein 5.8 6.5-8.0 g/dL Albumin Level 3.2 3.5-5.0 g/dL Alkaline Phosphatase 113 39-117 U/L Comprehensive Met. Panel Reviewed date:12/29/2024 02:32:21 PM Interpretation: Performing Lab:[facility], [address] [place] [phone] Notes/Report: Sodium 141 135-145 mmol/L Potassium 5.2 3.3-5.1 mmol/L Chloride 111 96-108 mmol/L Carbon Dioxide 24 22-29 mmol/L Anion Gap 11 12-20 Blood Urea Nitrogen 12 9-16 mg/dL Creatinine 0.95 0.5-1.4 mg/dL Estimated Glomerular Filt Rate > 60 Chronic Kidney Disease: Estimated GFR < 60 mL/min/1.73m2 Severe Kidney Disease: Estimated GFR < 15 mL/min/1.73m2 Glucose Random 116 60-115 mg/dL Calcium 8.5 8.4-10.2 mg/dL Bilirubin Total 1.0 0.0-1.0 mg/dL Aspartate Amino Transferase 116 5-37 U/L Alanine Aminotransferase 116 0-40 U/L Total Protein 6.0 6.5-8.0 g/dL Albumin Level 3.4 3.5-5.0 g/dL Alkaline Phosphatase 139 39-117 U/L US renal BI Reviewed date:01/10/2025 03:43:11 PM Interpretation: Performing Lab: Notes/Report: [address] [address] Ultrasound Report Signed Patient: Deacon Romo MR#: [id number] : 1940 Acct:[id number] Age/Sex: 84 / M ADM Date: 12/30/24 Loc: HO.US Attending Dr: Vini Mendoza MD Ordering Physician: Thomas Araujo MD Date of Service: 12/30/24 Procedure(s): US renal BI Accession Number(s): [id number] cc: Thomas Araujo MD; Vini Mendoza MD EXAMINATION: US RETROPERITONEAL LIMITED (RENAL ONLY) CLINICAL INFORMATION: Benign prostate hyperplasia.. COMPARISON: Ultrasound abdomen dated January 07, 2025. TECHNIQUE: Real-time ultrasonographic kidneys using grayscale and color Doppler technique. FINDINGS: RIGHT KIDNEY: 12 x 6 x 5 cm (SAG x AP x TRV). There is renal cortical thinning. Normal echotexture. No hydronephrosis. There is a 0.8 cm exophytic anechoic lesion in the midportion without flow on color Doppler interrogation. LEFT KIDNEY: 12 x 6 x 5 cm (SAG x AP x TRV). There is renal cortical thinning. Normal echotexture. No hydronephrosis. There is a 3 mm hyperechoic structure in the lower pole of the corticomedullary junction. There is trace of perinephric fluid. US/US renal BI IMPRESSION: No hydronephrosis. 0.8 cm exophytic cyst, right kidney. Probable 3 mm nonobstructing calculus, left kidney. Trace of perinephric fluid, left retroperitoneum. Electronically signed by: Fabian Llamas MD 01/10/2025 01:19 PM EDT Dictated By: Fabian Seals MD Signed By: <Electronically signed by Fabian Goddard MD in OV> 01/10/25 1319 DD/ 1253 TD/TT: 12/30/24 1301 [employer] Officer: [place] [address] Ultrasound Report Signed Patient: Ana María Romo MR#: [id number] : 1940 Acct:[id number] Age/Sex: 84 / M ADM Date: 12/30/24 Loc: HO.US Attending Dr: Vini Mendoza MD Ordering Physician: Thomas Araujo MD Date of Service: 12/30/24 Procedure(s): US renal BI Accession Number(s): [id number] cc: Ramsey Araujo MD; Vini Mendoza MD EXAMINATION: US RETROPERITONEAL LIMITED (RENAL ONLY) CLINICAL INFORMATION: Benign prostate hyperplasia.. COMPARISON: Ultrasound abdomen d ated January 07, 2025. TECHNIQUE: Real-time ultrasonographic kidneys using grayscale and color Doppler technique. FINDINGS: RIGHT KIDNEY: 12 x 6 x 5 cm (SAG x AP x TRV). There is renal cortical thinning. Normal echotexture. No hydronephrosis. There is a 0.8 cm exophytic anechoic l esion in the midportion without flow on color Doppler interrogation. LEFT KIDNEY: 12 x 6 x 5 cm (SAG x AP x TRV). There is renal cortical thinning. Normal echotexture. No hydronephrosis. There is a 3 mm hyperechoic structur e in the lower pole of the corticomedullary junction. There is t race of perinephric fluid. U S/US renal BI IMPRESSION: No hydronephrosis. 0.8 cm exophytic cys t, right kidney. Probable 3 mm nonobstructing calculus, left kidney. Trace of perinephric fluid, left retroperitoneum. Electronically charan d by: Fabian Llamas MD 01/10/2025 01:19 PM EDT RP Dictated By: Fabian Palmer MD Signed By: <Electronically signed by Fabian Goddard MD in OV> 01/10/25 1319 DD/ 1253 TD/TT: 12/30/24 1301 [employer] Officer: Complete Blood Count Auto Di ff Reviewed date:01/07/2025 04:59:35 PM Interpretation: Performing Lab:[facility], [address] [place] [phone] Notes/Report: White Blood Count 8.5 4.8-10.8 X10*3/uL Red Blood Count 3.13 4.60-5.80 X10*6/uL Hemoglobin 7.6 14.0-18.0 g/dl Hematocrit 24.9 42.0-52.0 % Mean Corpuscular Volume 79.6 80.0-98.0 fL Mean Corpuscular Hemoglobin 24.3 27.0-33.0 pg Mean Corpuscular HGB Conc 30.5 31.0-36.0 g/dl Red Cell Distribution Width 18.6 11.0-16.0 % Platelet Count 299 160-400 X10*3/uL Mean Platelet Volume 10.7 9.4-12.4 fL Neutrophils Percent Auto 64.3 45-73 % Imm Gran Pct Auto 0.5 0.0-0.4 % Lymphocytes Percent Auto 19.4 20-40 % Monocytes Percent Auto 8.4 2-11 % Eosinophils Percent Auto 6.7 0-4 % Basophils Percent Auto 0.7 0-2 % NRBC Pct Auto 0.0 0.0-0.2 /100WBC Neutrophils Absolute Auto 5.4 2.0-8.3 x10*3/uL Imm Gran Abs Auto 0.04 0.00-0.03 X10*3/uL Lymphocytes Absolute Auto 1.6 1.2-4.9 X10*3/uL Monocytes Absolute Auto 0.7 0.1-1.2 X10*3/uL Eosinophils Absolute Auto 0.6 0.0-0.4 X10*3/uL Basophils Absolute Auto 0.1 0.0-0.2 X10*3/uL NRBC Abs Auto 0.000 0.0-0.012 X10*3/uL Prothrombin Time INR Reviewed date:01/06/2025 08:57:34 AM Interpretation: Performing Lab:[address] [phone] Notes/Report: Prothrombin Time 14.1 10.9-12.4 SEC INTERNATIONAL NORM RATIO 1.2 0.9-1.1 INTERNATIONAL NORMALIZED RATIO (INR) REFERENCE RANGES Reference Range For patients not on anticoagulant therapy: 0.9 - 1.1 INR ranges for oral anticoagulant therapy: For prevention and treatment of venous thrombosis and pulmonary embolism: 2.0 - 3.0 For acute myocardial infarction with aspirin therapy: 2.0 - 3.0 For acute myocardial infarction without aspirin therapy: 3.0 - 4.0 For patients with mechanical prosthetic heart valves: 2.5 - 3.5 OBSX1 Reviewed date:01/06/2025 04:35:49 PM Interpretation: Performing Lab:[address] [phone] Notes/Report: OBS1 POSITIVE NEGATIVE Liver Panel Reviewed date:01/06/2025 04:38:51 PM Interpretation: Performing Lab:[facility], [address] [place] [phone] Notes/Report: Bilirubin Total 1.3 0.0-1.0 mg/dL Bilirubin Direct 0.5 0.0-0.5 mg/dL Aspartate Amino Transferase 62 5-37 U/L Alanine Aminotransferase 133 0-40 U/L Total Protein 6.2 6.5-8.0 g/dL Albumin Level 3.7 3.5-5.0 g/dL Alkaline Phosphatase 190 39-117 U/L Basic Metabolic Panel Reviewed date:01/06/2025 04:51:22 PM Interpretation: Performing Lab:[address] [address] Notes/Report: Sodium 141 135-145 mmol/L Potassium 4.6 3.3-5.1 mmol/L Chloride 106 96-108 mmol/L Carbon Dioxide 22 22-29 mmol/L Anion Gap 18 12-20 Blood Urea Nitrogen 21 9-16 mg/dL Creatinine 0.92 0.5-1.4 mg/dL Creatinine Clr Calc Pharmacy 62.8 eGFR (calculated from the MDRD study equation) and eCrCl (calculated from the Cockcroft-Gault equation) are based on different parameters and may not yield comparable results. If eCrCl result is absurd, please check patient's height/weight. Estimated Glomerular Filt Rate > 60 Chronic Kidney Disease: Estimated GFR < 60 mL/min/1.73m2 Severe Kidney Disease: Estimated GFR < 15 mL/min/1.73m2 Glucose Random 138 60-115 mg/dL Calcium 8.7 8.4-10.2 mg/dL Magnesium Reviewed date:01/06/2025 04:35:59 PM Interpretation: Performing Lab:[facility], [address] [place] [phone] Notes/Report: Magnesium 1.8 1.6-2.6 mg/dL Glucose, Whole Blood Reviewed date:01/06/2025 04:35:38 PM Interpretation: Performing Lab:[facility], [address] [place] [phone] Notes/Report: Glucose, Whole Blood 93 60-115 mg/dL METER # : [id number] Type and Screen Reviewed date:01/07/2025 04:52:18 PM Interpretation: Performing Lab:[facility], [address] [place] [phone] Notes/Report: Results at Issue Units as of 01/06/25 1118 ... Test View Group: Most Recent HGB HCT Results LABORATORY Date Time Test Result Flag Normal Range 01/06/25 0817 HGB 7.6 L 14.0-18.0 g/dl 01/06/25 0817 HCT 24.9 L 42.0-52.0 % Results at Issue Units as of 01/07/25 0809 ... Test View Group: Most Recent HGB HCT Results LABORATORY Date Time Test Result Flag Normal Range 01/07/25 0548 HGB 7.5 L 14.0-18.0 g/dl 01/07/25 0548 HCT 23.9 L 42.0-52.0 % Yes Blood Type AP Antibody Screen NEGATIVE Red Blood Cells Reviewed date:01/07/2025 04:52:26 PM Interpretation: Performing Lab:[facility], [address] [place] [phone] Notes/Report: Red Blood Cells [id number] RC Red Blood Cells TRANSFUSED 01/07/25 0807 Red Blood Cells [id number] RC Red Blood Cells TRANSFUSED 01/06/25 1118 Glucose, Whole Blood Reviewed date:01/07/2025 04:52:34 PM Interpretation: Performing Lab:[facility], [address] [place] [phone] Notes/Report: Glucose, Whole Blood 83 60-115 mg/dL METER # : [id number] Glucose, Whole Blood Reviewed date:01/07/2025 04:51:39 PM Interpretation: Performing Lab:[address] [address] Notes/Report: Glucose, Whole Blood 98 60-115 mg/dL METER # : [id number] Complete Blood Count no Diff Reviewed date:01/07/2025 04:54:34 PM Interpretation: Performing Lab:[address] [phone] Notes/Report: White Blood Count 5.7 4.8-10.8 X10*3/uL Red Blood Count 3.01 4.60-5.80 X10*6/uL Hemoglobin 7.5 14.0-18.0 g/dl Hematocrit 23.9 42.0-52.0 % Mean Corpuscular Volume 79.4 80.0-98.0 fL Mean Corpuscular Hemoglobin 24.9 27.0-33.0 pg Mean Corpuscular HGB Conc 31.4 31.0-36.0 g/dl Red Cell Distribution Width 18.0 11.0-16.0 % Platelet Count 185 160-400 X10*3/uL Mean Platelet Volume 10.6 9.4-12.4 fL NRBC Pct Auto 0.0 0.0-0.2 /100WBC NRBC Abs Auto 0.000 0.0-0.012 X10*3/uL Liver Panel Reviewed date:01/07/2025 04:52:10 PM Interpretation: Performing Lab:[address] [phone] Notes/Report: Bilirubin Total 1.7 0.0-1.0 mg/dL Bilirubin Direct 0.5 0.0-0.5 mg/dL Aspartate Amino Transferase 43 5-37 U/L Alanine Aminotransferase 91 0-40 U/L Total Protein 5.2 6.5-8.0 g/dL Albumin Level 3.0 3.5-5.0 g/dL Alkaline Phosphatase 152 39-117 U/L Basic Metabolic Panel Reviewed date:01/07/2025 04:54:53 PM Interpretation: Performing Lab:[address] [id number] Notes/Report: Sodium 139 135-145 mmol/L Potassium 3.8 3.3-5.1 mmol/L Chloride 107 96-108 mmol/L Carbon Dioxide 24 22-29 mmol/L Anion Gap 12 12-20 Blood Urea Nitrogen 16 9-16 mg/dL Creatinine 0.92 0.5-1.4 mg/dL Creatinine Clr Calc Pharmacy 62.8 eGFR (calculated from the MDRD study equation) and eCrCl (calculated from the Cockcroft-Gault equation) are based on different parameters and may not yield comparable results. If eCrCl result is absurd, please check patient's height/weight. Estimated Glomerular Filt Rate > 60 Chronic Kidney Disease: Estimated GFR < 60 mL/min/1.73m2 Severe Kidney Disease: Estimated GFR < 15 mL/min/1.73m2 Glucose Random 97 60-115 mg/dL Calcium 8.1 8.4-10.2 mg/dL Glucose, Whole Blood Reviewed date:01/07/2025 04:53:48 PM Interpretation: Performing Lab:[facility], [address] [place] [id number] Notes/Report: Glucose, Whole Blood 91 60-115 mg/dL METER # : [id number] US abdomen comp w elastograp hy Reviewed date:01/09/2025 05:55:24 PM Interpretation: Performing Lab: Notes/Report: [address] [address] Ultrasound Report Signed Patient: Deacon Romo MR#: [id number] : 1940 Acct:[id number] Age/Sex: 84 / M ADM Date: 01/06/25 Loc: [facility] 473-[address]: Krishna Lemon MD Ordering Physician: Leo Guo MD Date of Service: 01/07/25 Procedure(s): US abdomen comp w elastography Accession Number(s): [id number] cc: Vini Mendoza MD; Leo Guo MD EXAMINATION: US COMPLETE ABDOMEN WITH LIVER ELASTOGRAPHY CLINICAL INFORMATION: Elevated LFTs COMPARISON: Ultrasound abdomen 01/02/2023 TECHNIQUE: Real-time imaging of the abdominal viscera. Noninvasive ultrasound liver fibrosis assessment is performed using [employer]it ElastPQ point quantification shear wave elastography (pSWE) [...] 01/09/25 0713 DD/ 0800 TD/TT: 01/07/25 0830 [employer] Officer: [place] [address] Ultrasound Report Signed Patient: Ana María Romo MR#: [id number] 682 : 1940 Acct:[id number] Age/Sex: 84 / M ADM Date: 01/06/25 Loc: [facility]-[address]: Suzan Lemon MD Ordering Physician: Leo Guo MD Date of Service: 01/07/25 Procedure(s): US abd omen comp w elastography Accession Number(s): [id number] cc: Vini Mendoza MD; Leo Guo MD EXAMINATION: US COMPLETE ABDOMEN WITH LIVER ELASTOGRAPHY CLINICAL INFORMATION: Elevated LFTs COMPARISON: Ultrasound abdomen 01/02/2023 TECHNIQUE: Real-time imaging of the abdominal viscera. Noninvasive ultrasound liver fibrosis asses sment is performed using [employer] ElastPQ point quantification shear wave elastography (pSWE) with a C5-2 MHz transducer. Multiple elastography samples are obtained. FINDINGS: PANCREAS: The visual ized pancreatic head and body are normal in appearance. The taco nancy of the pancreas is obscured from visualization by the overlying bowel gas. ABDOMINAL AORTA: No aortic aneurysm is seen. INFERIOR VENA CAVA: Visualized portions are normal. LIVER: The liver demonstrates normal size, contour and increased echogenicity. No foc al lesion or intrahepatic biliary duct dilatation. The right lobe measu res 15.3 cm in length. The left lobe measures 11.0 cm in length. Portal flow is hepatopedal Shear wave liver elastography median stiffness is 1.28 m/s (reference: normal median stiffn ess is 1.3 m/s or less). IQR/median stiffness to assess sampling precision is 0.09 (reference: good quality data se t is IQR/median stiffness of 0.15 or less). GALLBLADDER: The gallbladder is physiologically distended without evidence of stones, sludge, polyps, wall thickening or pericholecystic fluid. Gallbladder w all thickness is 0.23 cm COMMON BILE DUCT: No t imaged. Was normal on the previous ultrasound exam. RIGHT KIDNEY: No hydronephrosis. There is anechoic partially exophytic cyst mid pole measur ing 0.0 x 0.75 x 0.90 cm.. The kidney measures 11.1 cm in maximum dimension. LEFT KIDNEY: No hydronephrosis. No renal calculi or focal parenchymal lesions. The kidney measures 11.6 cm in maximum dimension. SPLEEN: Unremarkable . The spleen measures 12.7 cm in maximum dimension. FREE FLUID: Suspect small left pleural effusion U S/US abdomen comp w elastography IMPRESSION: 1. Echogenic liver. Similar findings were seen on previous ultrasound 01/02/2023 2. Liver elastograph y: Median liver stiffness measures 1.28 suggestive of high probability 3. Small partially exophytic cyst mid pole right kidney. Previously visualized echogenic stones in kidneys is not seen at this time. REFERENCE: Society of Radiologi sts in Ultrasound Liver Stiffness Thresholds (2019): LIVER STIFFNESS THRESHOLDS: *Liver Stiffness equ al or less than 1.3 m/s: High probability of being normal. *Liver Stiffness les s than 1.7 m/s: In the absence of other known clinical signs, rule s out compensated advanced chronic liver disease. *Liver Stiffness 1.7 -2.1 m/s: Suggestive of compensated advanced chronic liver diseas e but need further test for confirmation. *Liver Stiffness ove r 2.1 m/s: Rules in compensated advanced chronic liver disease. *Liver Stiffness ove r 2.4 m/s: Suggestive of clinically significant portal hypertension. QUALITY OF DATA SET: *IQR/Median value eq ual or less than 0.15 implies a quality data set. *IQR/Median value ov er 0.15 implies a poor quality data set. SIGNIFICANT CHANGE F ROM PRIOR EXAM: Significant change i f liver stiffness measurement is 10% or greater from prior exam. OTHER CONSIDERATIONS: The stage of liver fibrosis may be overestimated in the setting of acute hepatitis, patrizia er inflammation, elevated liver function tests, hepatic vascular congestion, obstructive cholestasis, non-fasting state, and infiltrat queenie diseases such as amyloidosis and lymphoma. In some patients with N AFLD, the liver stiffness thresholds for compensated advanced chronic liver disease may be lower. In causes other than viral hepatitis and NAFLD, liver stiffness thresholds are not well established. Electronically charan d by: Checo Bronson MD 01/09/2025 07:13 AM EDT Dictated By: Mr krishna Bronson MD Signed By: <Electronically signed by Checo Bronson MD in [place]> 01/09/25 0713 DD/ 08 TD/TT: 01/07/25 0830 [employer] Officer: LISA XR chest 1V Reviewed date:01/07/2025 04:49:50 PM Interpretation: Performing Lab: Notes/Report: [place] [address] XRay Report Signed Patient: Deacon Romo MR#: [id number] 682 : 1940 Acct:[id number] Age/Sex: 84 / M ADM Date: 01/06/25 Loc: [facility]: Krishna Lemon MD Ordering Physician: Krishna Lemon MD Date of Service: 01/07/25 Procedure(s): XR chest 1V Accession Number(s): [id number] cc: Vini Mendoza MD; Krishna Lemon MD CLINICAL HISTORY: pleual effusion 1 view chest x-ray Comparison: None provided Findings: Sternotomy wires are evident. Lungs are mildly hypoinflated. Cardiac silhouette is at the upper limits of normal for size. Consolidation of the left lung base with small to moderate left pleural effusion. No infiltrates are seen within the right lung. IMPRESSION: Left basilar consolidation with small to moderate left pleural effusion. This document has been electronically signed by: Robert Pappas MD on 01/07/2025 11:46:27 Dictated By: Robert Pappas MD Signed By: <Electronically signed by Robert Pappas MD in [place]> 01/07/25 1147 DD/ 1146 TD/TT: 01/07/25 1146 [employer] Officer: [place] [address] XRay Report Signed Patient: Ana María Romo MR#: [id number] 682 : 1940 Acct:[id number] Age/Sex: 84 / M ADM Date: 01/06/25 Loc: [facility]: Suzan Lemon MD Ordering Physician: Krishna Lemon MD Date of Service: 01/07/25 Procedure(s): XR chest 1V Accession Number(s): [id number] cc: Vini Mendoza MD; Kirshna Lemon MD CLINICAL HISTORY: pl eual effusion 1 view chest x-ray Comparison: None provided Findings: Sternotomy wires are evident. Lungs are mildly hypoinflated. Cardiac silhouette i s at the upper limits of normal for size. Consolidation of the left lung base with small to moderate left pleural effusion. No infiltrates are s een within the right lung. IMPRESSION: Left basilar consolidation with small to moderate left pleural effusion. This document has be en electronically signed by: Robert Pappas MD on 01/07/2025 11:46:27 Dictated By: Robert Pappas MD Signed By: <Electronically signed by Robert Pappas MD in [place]> 01/07/25 1147 DD/ 1146 TD/TT: 01/07/25 1146 [employer] Officer: Glucose, Whole Blood Reviewed date:01/07/2025 04:50:31 PM Interpretation: Performing Lab:[facility], [address] [place] [phone] Notes/Report: Glucose, Whole Blood 123 60-115 mg/dL METER # : [id number] Glucose, Whole Blood Reviewed date:01/07/2025 04:49:08 PM Interpretation: Performing Lab:[facility], [address] [place] [phone] Notes/Report: Glucose, Whole Blood 123 60-115 mg/dL METER # : [id number] Glucose, Whole Blood Reviewed date:01/08/2025 02:53:57 PM Interpretation: Performing Lab:[facility], [address] [place] [phone] Notes/Report: Glucose, Whole Blood 135 60-115 mg/dL METER # : [id number] Complete Blood Count no Diff Reviewed date:01/08/2025 02:53:57 PM Interpretation: Performing Lab:[facility], [address] [place] [phone] Notes/Report: White Blood Count 5.8 4.8-10.8 X10*3/uL Red Blood Count 3.56 4.60-5.80 X10*6/uL Hemoglobin 8.7 14.0-18.0 g/dl Hematocrit 28.3 42.0-52.0 % Mean Corpuscular Volume 79.5 80.0-98.0 fL Mean Corpuscular Hemoglobin 24.4 27.0-33.0 pg Mean Corpuscular HGB Conc 30.7 31.0-36.0 g/dl Red Cell Distribution Width 18.4 11.0-16.0 % Platelet Count 185 160-400 X10*3/uL Mean Platelet Volume 10.5 9.4-12.4 fL NRBC Pct Auto 0.0 0.0-0.2 /100WBC NRBC Abs Auto 0.000 0.0-0.012 X10*3/uL Comprehensive Met. Panel Reviewed date:01/08/2025 02:53:57 PM Interpretation: Performing Lab:[facility], [address] [place] [phone] Notes/Report: Sodium 140 135-145 mmol/L Potassium 4.1 3.3-5.1 mmol/L Chloride 108 96-108 mmol/L Carbon Dioxide 26 22-29 mmol/L Anion Gap 10 12-20 Blood Urea Nitrogen 13 9-16 mg/dL Creatinine 1.08 0.5-1.4 mg/dL Creatinine Clr Calc Pharmacy 53.5 eGFR (calculated from the MDRD study equation) and eCrCl (calculated from the Cockcroft-Gault equation) are based on different parameters and may not yield comparable results. If eCrCl result is absurd, please check patient's height/weight. Estimated Glomerular Filt Rate > 60 Chronic Kidney Disease: Estimated GFR < 60 mL/min/1.73m2 Severe Kidney Disease: Estimated GFR < 15 mL/min/1.73m2 Glucose Random 125 60-115 mg/dL Calcium 8.0 8.4-10.2 mg/dL Bilirubin Total 1.6 0.0-1.0 mg/dL Aspartate Amino Transferase 49 5-37 U/L Alanine Aminotransferase 77 0-40 U/L Total Protein 5.2 6.5-8.0 g/dL Albumin Level 3.0 3.5-5.0 g/dL Alkaline Phosphatase 147 39-117 U/L Glucose, Whole Blood Reviewed date:01/08/2025 02:53:57 PM Interpretation: Performing Lab:[address] [phone] Notes/Report: Glucose, Whole Blood 116 60-115 mg/dL METER # : [id number] Glucose, Whole Blood Reviewed date:01/08/2025 02:53:57 PM Interpretation: Performing Lab:[address] [phone] Notes/Report: Glucose, Whole Blood 134 60-115 mg/dL METER # : [id number] Glucose, Whole Blood Reviewed date:01/09/2025 05:55:24 PM Interpretation: Performing Lab:[address] [phone] Notes/Report: Glucose, Whole Blood 99 60-115 mg/dL METER # : [id number] Glucose, Whole Blood Reviewed date:01/09/2025 05:55:24 PM Interpretation: Performing Lab:[address] [place] [address] Notes/Report: Glucose, Whole Blood 137 60-115 mg/dL METER # : [id number] Complete Blood Count Auto Di ff Reviewed date:01/09/2025 11:56:45 AM Interpretation: Performing Lab:[address] [phone] Notes/Report: White Blood Count 6.1 4.8-10.8 X10*3/uL [...] 0.0-0.2 /100WBC Neutrophils Absolute Auto 3.5 2.0-8.3 x10*3/uL Imm Gran Abs Auto 0.02 0.00-0.03 X10*3/uL Lymphocytes Absolute Auto 1.4 1.2-4.9 X10*3/uL Monocytes Absolute Auto 0.5 0.1-1.2 X10*3/uL Eosinophils Absolute Auto 0.6 0.0-0.4 X10*3/uL Basophils Absolute Auto 0.0 0.0-0.2 X10*3/uL NRBC Abs Auto 0.000 0.0-0.012 X10*3/uL Glucose, Whole Blood Reviewed date:01/09/2025 05:50:19 PM Interpretation: Performing Lab:[facility], [address] [place] [phone] Notes/Report: Glucose, Whole Blood 100 60-115 mg/dL METER # : [id number] Pathology Reviewed date:01/11/2025 02:08:52 PM Interpretation: Performing Lab:[facility], [address] [place] [address] Notes/Report: ----- Name: Nury Romo Age/Sex: 84/M : 1940 Unit#: [id number] Attend Dr: Hal Monroy Re01/06/25 Status : DIS IN Location: [facility] 473-1 Disch: 01/10/25 ----- SPEC : [id number] RECD : 01/09/25-1530 STATUS: STANISLAW CARDOZO NUM: [id number] DEISY: 01/09/25-[address] [facility] [address]: Leo Guo MD ENTERED: 01/09/25-15 36 SP TYPE: Surgical OTHR DR: Vini Mendoza MD, Jaehyun MD ORDERED: HE Stain/6 , Gross Micro L4/2, IHC, Special st. 2/2, H. pylori, AB/PAS/2 Diagnosis A. Duodenum, 2nd and 3rd portion, biopsy: Duodenal mucosa within normal limits; preserved villous architecture and no increased intraepithelial lymphocytes seen. B. Stomach, antrum, biopsy: Gastric antral mucosa with moderate chronic inactive gastritis and intest inal metaplasia (incomplete); negative for Helicobacter pylori and dysplasia. Clinical History Pre-Op Dx: GI bleeding Post-Op Dx: Gastriti s, hiatal hernia Microscopic Description A-B. Microscopic sec tions examined. Intestinal metaplasia is seen in specimen B, supported by AB/PAS stains whchance beckett no foveolar metaplasia is seen in part A (AB/PAS); no Helicobacter organisms are seen, supported by H. pylori immunostain (B). Material Received A. 2nd and 3rd porti on of duodenum to r/o celiac B. Antrum Gross Description Received in two parts. Part A: Received in formalin labeled ?2nd and 3rd portion of duodenum, rule out celiac are four velvety young-pin k irregular tissue fragments each measuring 0.25 cm, submitted in toto in a cassette labeled A. Part B: Received in formalin labeled antrum? are three young-pink irregular and rectangular tissue fragments ran ging from 0.3-0.45 cm, submitted in toto in a cassette labeled B. CEDS Special stains order ed and performed: A/B PAS on A-B; immunostain for H pylori on B. CONTINUED ON NEXT PAGE ----- Name: Nury Romo Age/Sex: 84/M : 1940 Unit#: [id number] Attend Dr: Hal Monroy Re01/06/25 Status : DIS IN Location: [facility]-1 Disch: 01/10/25 ----- SPEC : [id number] RECD : 01/09/251530 STATUS: STANISLAW CARDOZO NUM: [id number] DEISY: 01/09/25-[address] [facility] [address]: Leo Guo MD ENTERED: 01/09/25- 36 SP TYPE: Surgical OTHR DR: Vini Mendoza MD, Jaehyun MD ORDERED: HE Stain/6, Gross Micro L4/2, IHC, Special st. 2/2, H. pylori, AB/PAS/2 IHC S/NG Disclaimer NOTE: Unless otherwi se stated, all tissue is formalin-fixed and paraffin-embedded. Some or all of the immunohistochemical tests reported herein may have been developed and their performance characteristics determined by [facility]. They have not been cleared or appr viry by the U.S. Food and Drug Administration (FDA). However, the FDA has determined that such clearance or approval is not necessary. This laboratory is certified under the Clinical Laboratory Improvement Amendments of 1988 (CLIA) as qualified to perform high complexity clinical laboratory testing. Copies To: Vini Mendoza MD [facility] [address] [place] [address] [address] [place] [address] Krishna Lemon MD [address] [place] [id number] Leo Guo MD [facility] [address] [place] [address] [address] [place] [address] ----- Signed (signature on file) Naty Younger MD 01/11/25 0823 ----- END OF REPORT Prabha Green Gel Reviewed date:01/09/2025 11:57:28 AM Interpretation: Performing Lab:[facility], [address] [place] [phone] Notes/Report: Hold Green Gel See Note Specimen held untested for 24 hours; Call to request Chemistry testing. Glucose, Whole Blood Reviewed date:01/09/2025 05:49:26 PM Interpretation: Performing Lab:[facility], [address] [place] [phone] Notes/Report: Glucose, Whole Blood 98 60-115 mg/dL METER # : [id number] Glucose, Whole Blood Reviewed date:01/09/2025 05:50:11 PM Interpretation: Performing Lab:[facility], [address] [place] [phone] Notes/Report: Glucose, Whole Blood 122 60-115 mg/dL METER # : [id number] Glucose, Whole Blood Reviewed date:01/10/2025 06:01:42 PM Interpretation: Performing Lab:[facility], [address] [place] [phone] Notes/Report: Glucose, Whole Blood 139 60-115 mg/dL METER # : [id number] Complete Blood Count Auto Di ff Reviewed date:01/10/2025 06:02:14 PM Interpretation: Performing Lab:[facility], [address] [place] [phone] Notes/Report: White Blood Count 4.9 4.8-10.8 X10*3/uL [...] 0.0-0.2 /100WBC Neutrophils Absolute Auto 2.6 2.0-8.3 x10*3/uL Imm Gran Abs Auto 0.03 0.00-0.03 X10*3/uL Lymphocytes Absolute Auto 1.3 1.2-4.9 X10*3/uL Monocytes Absolute Auto 0.4 0.1-1.2 X10*3/uL Eosinophils Absolute Auto 0.4 0.0-0.4 X10*3/uL Basophils Absolute Auto 0.0 0.0-0.2 X10*3/uL NRBC Abs Auto 0.000 0.0-0.012 X10*3/uL Basic Metabolic Panel Fastin g Reviewed date:01/10/2025 06:02:14 PM Interpretation: Performing Lab:[facility], [address] [place] [phone] Notes/Report: Sodium 145 135-145 mmol/L Potassium 3.8 [...] 95 60-99 mg/dL Calcium 8.0 8.4-10.2 mg/dL Glucose, Whole Blood Reviewed date:01/10/2025 06:02:14 PM Interpretation: Performing Lab:[facility], [address] [place] [phone] Notes/Report: Glucose, Whole Blood 97 60-115 mg/dL METER # : [id number] Pathology Reviewed date:01/11/2025 02:12:24 PM Interpretation: Performing Lab:[facility], [address] [place] [phone] Notes/Report: ----- Name: Nury Romo Age/Sex: 84/M : 1940 Unit#: [id number] Attend Dr: Hal Monroy Re01/06/25 Status : DIS IN Location: [facility]-1 Disch: 01/10/25 ----- SPEC : [id number] RECD : 01/10/25-8889 STATUS: STANISLAW JULIANE NUM: [id number] DEISY: 01/10/25-[address]: Cedrick Butt MD ENTERED: 01/10/25-13 13 SP TYPE: Surgical OTHR DR: Hal Monroy Glen P MD ORDERED: HE Stain/3, Gross Micro L4 Diagnosis Colon, at 70 cm, eusebio yp: Tubular adenoma; negative for high-grade dysplasia and carcinoma. Clinical History Pre-Op Dx: GI bleed Post-Op Dx: Colon polyp Microscopic Description Microscopic sections reviewed. Material Received Polyp at 70 cm Gross Description Received in formalin labeled ?polyp at 70? is a 0.5 cm pink-red papular tissue fragment, submitted in toto in a cassette labeled A. CEDS IHC S/NG Disclaimer NOTE: Unless otherwi se stated, all tissue is formalin-fixed and paraffin-embedded. Some or all of the immunohistochemical tests reported herein may have been developed and their performance characteristics determined by [facility]. They have not been cleared or appr viry by the U.S. Food and Drug Administration (FDA). However, the FDA has determined that such clearance or approval is not necessary. This laboratory is certified under the Clinical Laboratory Improvement Amendments of 1988 (CLIA) as qualified to perform high complexity clinical laboratory testing. Copies To: Hal Monroy [address] [place] [id number] [email or web address] CONTINUED ON NEXT PAGE ----- Name: Nury Romo Age/Sex: 84/M : 1940 Unit#: [id number] Attend Dr: Hal Monroy Re01/06/25 Status : DIS IN Location: [facility] 473-1 Disch: 01/10/25 ----- SPEC : [id number] RECD : 01/10/25 STATUS: STANISLAW CARDOZO NUM: [id number] DEISY: 01/10/25-[address]: Cedrick Butt MD ENTERED: 01/10/25- 13 SP TYPE: Surgical OTHR DR: Hal Monroy Glen P MD ORDERED: HE Stain/3, Gross Micro L4 Copies To: (Continued) Vini Mendoza MD [facility] [address] [place] [address] Cedrick Butt MD [facility] [address] [place] [address] ----- Signed (signature on file) Nichole Durant 01/11/251300 ----- END OF REPORT Glucose, Whole Blood Reviewed date:01/10/2025 03:32:59 PM Interpretation: Performing Lab:[facility], [address] [place] [phone] Notes/Report: Glucose, Whole Blood 95 60-115 mg/dL METER # : [id number] Reason For Referral Reason Iron deficiency anem ia Diagnosis 1 Iron deficiency anem ia (D50.9) Referral Organization Vini Mendoza MD Referring Provider First Name Vini Referring Provider Last Name Kelly Referring Provider Speciality Internal edicine Referred Provider Leo Guo Referred Provider Specialty Gastroentero logy General Notes Cynthia Rich 0 10/21/2024 10:19:56 AM >referral info and labs faxedLayla Annette 10/28/2024 03:00:26 PM >spoke with patient he said he is being put on a waiting list to get in sooner Referral Priority Routine Referral Appointment Date 01/25/2025 Reason chest pain Diagnosis 1 Chest pain (R07.9) Referral Organization Vini Mendoza MD Referring Provider First Name Vini Referring Provider Last Name Kelly [facility] Referred Provider Elliot Hogue Referred Provider Specialty Cardiovascul ar Disease General Notes Cynthia Rich 0 10/21/2024 10:22:45 AM >info faxed, Nivia Houser 11/03/2024 02:17:16 PM >APPT SCHEDULED FOR 02/21/25 AT 830AM Referral Priority Routine Referral Appointment Date 02/21/2025 Reason Rectal bleeding Diagnosis 1 Rectal bleeding (K62 .5) Referral Organization Vini Mendoza MD Referring Provider First Name Vini Referring Provider Last Name Kelly Referring Provider Speciality Internal edicine Referred Provider Cedrick Butt Referred Provider Specialty Gastroentero logy General Notes Cynthia Rich 0 12/29/2024 01:41:57 PM >sent notes with labsLayla Annette 12/30/2024 12:45:23 PM >patient is aware of appt Referral Priority Routine Referral Appointment Date 01/09/2025 Medications Medication SIG (Take, Route, Frequency, Duration) Notes Start Date End Date Status Eliquis 5 MG as directed Orally T wice a day Active Xyzal Allergy 24HR 5 MG 1 tablet in the evening Orally Once a day for 30 day(s) Active Omeprazole 20 MG 1 capsule 1/2 to 1 h our before morning meal Orally twice a day for 30 days 12/29/2024 Active Montelukast Sodium 10 MG TAKE ONE TABLET BY MOUTH EVERY EVENING for 90 Active Aspirin 81 81 MG 1 tablet Orally Once a day for 30 day(s) 12/29/2024 Active Aspir-Low 81 MG 1 tablet Orally Once a day for 30 day(s) Active Irbesartan-hydroCHLOROth iazide 150-12.5 MG TAKE ONE TABLET BY MOUTH EVERY DAY for 90 Active Ozempic (2 MG/DOSE) 8 MG/3ML INJECT 2MG UNDER THE SKIN ONCE A WEEK for 28 Active Finasteride 5 MG 1 tablet Orally Once a day Active Metoprolol Succinate ER 50 MG 0.5 tab twice a day for 90 days Active Fluticasone Propionate 50 MCG/ACT SPRAY 1 SPRAY INTO EACH NOSTRIL ONCE A DAY for 180 Active Atorvastatin Calcium 40 MG TAKE ONE TABLET BY MOUTH EVERY DAY Orally for 90 days Active Nitrostat 0.4 MG 1 tablet under the tongue and allow to dissolve as needed. Take every 5 minutes up to 3 times if chest pain persists Sublingual Three times a day for 30 days 10/21/2024 Active Ozempic (1 MG/DOSE) 4 MG/3ML 1 mg Subcutaneous weekly 04/15/2024 Act queenie Ozempic (0.25 or 0.5 MG/DOSE) 2 MG/3ML as directed Subcutaneous 0.25 mg weekly fminth then .5mg weekly for 30 days 02/22/2024 Not-Taking metFORMIN HCl 1000 MG TAKE ONE TABLET BY MOUTH TWICE A DAY WITH MEALS Active Valtrex 1 GM 2 tablet Orally ever y 12 hrs for 1 dose 05/07/2012 Not-Taking OneTouch Ultra Test TEST BLOOD GLUCOSE T WICE A DAY for 50 Active Januvia 100 MG TAKE ONE TABLET BY M OUTH EVERY DAY for 90 Active OneTouch Delica Lancing Dev as directed for 50 03/03/2013 Active Clopidogrel Bisulfate 75 MG 1 tablet Orally Once a day Active Immunizations [...] 02/11/2015 Administered pt herrera d vaccine at [facility] on [employer] in [place] Fluarix Quadrivalent IM Intramuscular 02/11/2016 Administered Shingles Unknown 03/29/2009 Administered Fluarix Quadrivalent IM Intramuscular 02/23/2017 Administered Shingrix IM Intramuscular 02/08/2018 Administered pt wa given the vaccine at [facility] on [facility]. Flu Vaccine Unknown 02/08/2018 Administered pt was give n the vaccine at [facility] on [facility]. Shingrix IM Intramuscular 05/17/2018 Administered pt was given the vaccine at [facility] in [place]. PPSV23 (Pnemovax) IM Intramuscular 09/10/2018 Administered Fluarix Quadrivalent IM Intramuscular 02/14/2019 Administered Covid Vaccine Unknown 07/02/2020 Administered Moderna SARS-COV-2 Moderna Unknown 04/26/2021 Administered Cost co SARS-COV-2 Moderna Unknown 06/14/2020 Administered SARS-COV-2 Moderna Unknown 07/12/2020 Administered Fluarix Quadrivalent Unknown 02/10/2022 Administered Influenza High Dose IM Intramuscular 02/06/2023 Administered Influenza High Dose IM Intramuscular 02/22/2024 Administered Influenza High Dose IM Intramuscular 02/02/2025 Administered Influenza High Dose Unknown 03/16/2020 Pending [...] Problem Status W/U Status Risk Notes Problem 11640535 Prostatism (N40.0) Active confirmed Problem 866218527 Asthmatic bronch itis (J45.909) Active confirmed Problem Unstable angina (0479206) Unstable angina (I20.0) Active confirmed Problem 23608430 Essential hypert ension (I10) Active confirmed Problem 78314170 Type 2 diabetes mellitus without complication (E11.9) Active confirmed Problem 770038905 Low HDL (under 4 0) (E78.6) Active confirmed Problem Biochemically recurrent prostate cancer (disorder) (75054533550774 1) Rising PSA level (R97.2) Active confirmed Problem Irregular heart beat (359989849) Irregular heart beat (I49.9) Active confirmed Problem Iron deficiency anemia (39636579) Iron deficiency anemia (D50.9) Active confirmed Problem 85952885 Sleep apnea, unspecified type (G47.30) Active confirmed Problem 355920051 Pure hypercholesterolemia (E78.00) Active confirmed Problem 16432536 Seasonal allergi c rhinitis due to pollen (J30.1) Active confirmed Problem 832591897 Adenomatous poly p of colon, unspecified part of colon (D12.6) Active confirmed Problem 229759802 BMI 32.0-32.9,ad ult (Z68.32) Active confirmed Problem 54876579 Bilateral hearin g loss, unspecified hearing loss type (H91.93) Active confirmed Vital Signs Blood pressure diastolic 64 mm Hg 02/02/2025 Height 70 in 02/02/2025 Blood pressure systolic 128 mm Hg 02/02/2025 Weight 183 lbs 02/02/2025 BMI 26.25 kg/m2 02/02/2025 Encounters Encounter Location Date Provider Diagnosis Vini Mendoza MD [address] [place] [address] [id number] 06/24/2024 Vini Mendoza Blood tests for rout ine general physical examination Z00.00 ; Essential hypertension I10 ; Type 2 diabetes mellitus without complication E11.9 ; Pure hypercholesterolemia E78.00 and Prostatism N40.0 Vini Mendoza MD [address] [place] [address] [id number] 10/14/2024 Vini Mendoza Iron deficiency E61. 1 Vini Mendoza MD [address] [place] [address] [id number] 01/02/2025 Vini Mendoza Rectal bleed K62.5 Vini Mendoza MD [address] [place] [address] [id number] 01/05/2025 Vini Mendoza Anemia D64.9 Vini Mendoza MD [address] [place] [address] [id number] 01/23/2025 Vini Mendoza Anemia D64.9 Vini Mendoza MD [address] [place] [address] [id number] 02/02/2025 Vini Mendoza Anemia D64.9 ; Weakn ess R53.1 and Encounter for administration of vaccine Z23 Vini Mendoza MD [address] [place] [address] [id number] 02/22/2024 Vini Mendoza Type 2 diabetes arabella itus without complication E11.9 and Encounter for immunization Z23 Vini Mendoza MD [address] [place] [address] [id number] 04/15/2024 Vini Mendoza Type 2 diabetes arabella itus without complication E11.9 and Newly recognized murmur R01.1 Vini Mendoza MD [address] [place] [address] [id number] 06/10/2024 Vini Mendoza Viral URI J06.9 Vini Mendoza MD [address] [place] [address] [id number] 07/01/2024 Vini Mendoza Mild anemia D64.9 ; Annual physical exam Z00.00 ; Type 2 diabetes mellitus without complication E11.9 ; Pure hypercholesterolemia E78.00 ; Prostatism N40.0 ; Colon cancer screening Z12.11 and Depression screening Z13.31 Vini Mendoza MD [address] [place] [address] [id number] 07/08/2024 Vini Mendoza Iron deficiency E61. 1 Vini Mendoza MD [address] [place] [address] [id number] 10/21/2024 Vini Mendoza Type 2 diabetes arabella itus without complication E11.9 ; Iron deficiency anemia D50.9 and Chest pain R07.9 Vini Mendoza MD [address] [place] [address] [id number] 11/18/2024 Vini Mendoza Type 2 diabetes arabella itus without complication E11.9 and Chest pain R07.9 Vini Mendoza MD [address] [place] [address] [id number] 12/05/2024 Vini Mendoza Unstable angina I20. 0 Vini Mendoza MD [address] [place] [address] [id number] 12/29/2024 Vini Mendoza Elevated LFTs R79.89 ; Rectal bleeding K62.5 ; History of atrial fibrillation Z86.79 and Elevated liver enzymes R74.8 Vini Mendoza MD [address] [place] [address] [id number] 05/17/2024 Vini Mendoza MD [address] [place] [address] [id number] 07/03/2024 Vini Mendoza MD [address] [place] [address] [id number] 07/08/2024 Vini Mendoza MD [address] [place] [address] [id number] 07/19/2024 Vini Mendoza Colon cancer screeni ng Z12.11 Vini Mendoza MD [address] [place] [address] [id number] 07/19/2024 Vini Mendoza MD [address] [place] [address] [id number] 12/19/2024 Vini Mendoza MD [address] [place] [address] [id number] 12/30/2024 Vini Mendoza Elevated LFTs R79.89 and Rectal bleeding K62.5 Vini Mendoza MD [address] [place] [address] [id number] 12/30/2024 Vini Mendoza MD [address] [place] [address] [id number] 01/12/2025 Vini Mendoza MD [address] [place] [address] [id number] 01/12/2025 Vini Mendoza Pure hypercholestero lemia E78.00 Vini Mendoza MD [address] [place] [address] [id number] 01/16/2025 Vini Mendoza Assessments Encounter Date Diagnosis (ICD Code) Assessment Notes Treatment Notes Treatment Clinical Notes Section Notes 06/24/2024 Blood tests for rout ine general physical examination (ICD-10 - Z00.00) 06/24/2024 Essential hypertensi on (ICD-10 - I10) 10/14/2024 Iron deficiency (ICD -10 - E61.1) 01/02/2025 Rectal bleed (ICD-10 - K62.5) 01/05/2025 Anemia (ICD-10 - D64.9) 01/23/2025 Anemia (ICD-10 - D64.9) pending labs 02/02/2025 Anemia (ICD-10 - D64.9) 02/02/2025 Weakness (ICD-10 - R53.1) 02/22/2024 Type 2 diabetes mellitus without complication (ICD-10 - E11.9) patient verbalized nderstanding of medication and directions for use 02/22/2024 Encounter for immunization (ICD-10 - Z23) flu vaccine administered 04/15/2024 Type 2 diabetes mellitus without complication (ICD-10 - E11.9) patient verbalized understanding of medication and directions for use 04/15/2024 Newly recognized mur mur (ICD-10 - R01.1) pending diagnostic testing, order faxed to [facility] CS dept 06/10/2024 Viral URI (ICD-10 - [...] to get him back to dr butt. 10/21/2024 Type 2 diabetes mellitus without complication (ICD-10 - E11.9) stable, will continue current regiment 10/21/2024 Iron deficiency anem ia (ICD-10 - D50.9) referral to dr butt 11/18/2024 Type 2 diabetes mellitus without complication (ICD-10 - E11.9) 11/18/2024 Chest pain (ICD-10 - R07.9) will do stress test and maybe will be able to see cardiology more quickly and to try nitro/ order faxed to [facility] dept 12/05/2024 Unstable angina (ICD -10 - I20.0) will send by ambulance down to [facility] Total time spent on the date of the encounter is 35 minutes including both face to face time spent and time spent reviewing documentation, and counseling the patient. 12/29/2024 Elevated LFTs (ICD-1 0 - R79.89) patient verbalized understnading of medication and diections for use 12/29/2024 Rectal bleeding (ICD -10 - K62.5) talked to dr telles the cardiac surgeon and he says stop plavix and apixaban and start a baby asa 07/19/2024 Colon cancer screeni ng (ICD-10 - Z12.11) 12/30/2024 Elevated LFTs (ICD-1 0 - R79.89) 01/12/2025 Pure hypercholesterolemia (ICD-10 - E78.00) 06/24/2024 Type 2 diabetes mellitus without complication (ICD-10 - E11.9) 02/02/2025 Encounter for administration of vaccine (ICD-10 - Z23) HD flu vaccine administered 07/01/2024 Type 2 diabetes mellitus without complication (ICD-10 - E11.9) doing great on ozempic, will continue current regiment z 10/21/2024 Chest pain (ICD-10 - R07.9) continue on baby asa and needs referral cardiology 12/29/2024 History of atrial fibrillation (ICD-10 - Z86.79) had a atrial appendage ligated and a maze procedure so the need for anticoagulation is low in view of gi bleed/ if not able to get the surgeoin the risk of continuing this is too high and the risk of the aafib is low 12/30/2024 Rectal bleeding (ICD -10 - K62.5) 06/24/2024 Pure hypercholesterolemia (ICD-10 - E78.00) 07/01/2024 Pure hypercholesterolemia (ICD-10 - E78.00) doing well on meds, willcontiue current regiment z 06/24/2024 Prostatism (ICD-10 - N40.0) 07/01/2024 Prostatism (ICD-10 - N40.0) followed by Urology z 12/29/2024 Elevated liver enzym es (ICD-10 - R74.8) 07/01/2024 Colon cancer screeni ng (ICD-10 - Z12.11) guaiac negative z 07/01/2024 Depression screening (ICD-10 - Z13.31) negative screen z Plan Of Treatment Pending Test Test Name Order Date Electrocardiogram (EKG) 02/26/2017 Electrocardiogram (EKG) 12/05/2024 Occult Blood, Stool, Guaiac 03/05/2018 CT ABD & PELVIS WITH IV CONT ONLY 2022 CT ABD & PELVIS WWO CONTRAST 11/21/2022 US ABD 12/29/2024 Stress Test 11/18/2024 ECHO 04/15/2024 Complete Blood Count Auto Diff Comprehensive [place]. Panel Fast US abdomen limited 06/05/2022 Future Test Test Name Order Date US abdomen limited 01/04/2023 Next Appt Details Provider Name:Vini Moscoso ier, 02/23/2025 09:15:00 AM, [address] [place] [address], [place] [address], [place], [place], [phone], Provider Name:Vini Karina Byronmaikel ier, 06/29/2025 07:45:00 AM, [address] [place] [address], [place] [address], [place], [place], [phone], Provider Name:Vini Moscoso ier, 07/06/2025 09:30:00 AM, [address] [place] [address], [place] [address], [place], [place], [phone], Insurance Providers Payer Name Payer Address Payer Phone Subscriber Number Group Number Insured Name Patient Relationship to Insured Coverage Start Date Coverage End Date [employer]AGE [address] [place], [place] [id number] Deacon Romo Self - patient is the insured [facility] [employer] [address] [place] [address] [id number] Deacon Romo Self - patient is the insured [employer] [address] [place] [address] [id number] Deacon Romo Self - patient is the insured Medical (General) History Medical History History ICD Code colonoscopy 07/2014 repeat in 3 years; colonoscopy 01/02/16 w/ Dr. Butt; colonoscopy done 02/11/[address] Butt, no futher testing needed.01/26/24 Colonoscopy, pending biopsy01/10/25 colonoscopy pending path
== END 2025-02-02 13:10 | disposition home or self-care (01) ==
LOC: HO.LNP 13:09
PROVIDERS: Visit Provider Internal Medicine
DX: D64.9 Anemia, unspecified (principal); R53.1 Weakness
CPT/HCPCS: 80053; 85025

== ENCOUNTER 2025-02-21 10:57 | Outpatient (REF) | payer MEDICARE, OTHER, SELFPAY ==
--- OUTSIDE RECORDS SUMMARY | 2024-01-26 06:00 | XMS_ITS ---
Author Organization [facility] Address [address] [place] [address] [place] [address] Care Team Providers Care Facilities Maintenance Supervisor Name Role Phone Vini Mendoza MD Primary Care Provider Jennifer Justin Jr, Cedrick Unavailable [phone] REASON FOR VISIT screening Encounters Encounter Location Date Provider Diagnosis [facility] [place] [address] [place] [phone] 01/26/2024 Cedrick Justin Jr Colon cancer screening [...] Name:Cedrick licona Jr, 03/27/2025 02:15:00 PM, [address] [place] [address], [address], [place], [address], Progress Notes * TOMEKA OLIVIERDOB:[birth year] (84 yo M)Acc No.[id number]:01/26/2024 COLON WITH MAC Patient: TOMEKA IRVIN Provider: Jerica Justin MD :1940 A ge:83 Y S ex:Male Date:01/26/2024 Address:[address] [place] [address] [facility] Pcp:Vini Mendoza MD Subjective: * Chief Complaints: * 1 . Screening. * Medical History: Objective: * Vitals: Assessment: * Assessment: 1. C olon cancer screening - Z12.11 (Primary) 2 . F amily history of colon cancer - Z80.0 3 . C olon polyps - K63.5 Plan: * Treatment: * Procedure Codes: 4 5385 LESION REMOVAL COLONOSCOPY, 61995 LESION REMOVE COLONOSCOPY, Modifiers: 59 , 57505 COLONOSCOPY AND BIOPSY, Modifiers: 59 , 0529F INTRVL 3+YRS PTS CLNSCP DOCD * * The named appointment provid er may or may not be the originator of this progress note, and it is not deemed complete until electronically signed by the appointment provider. Sign off status: Pending * Provider: Jerica Justin MD Date: 0 01/26/2024 Generated for Meg brenner/Min/Jordenitting on: 0 02/21/2025 01:33 PM EDT
--- OUTSIDE RECORDS SUMMARY | 2025-01-09 07:20 | XMS_ITS ---
Author Organization [facility] Address [address] [place] [phone] Care Team Providers Care Nuclear Engineering Technician Name Role Phone Vini Mendoza MD Primary Care Provider Jennifer Justin Jr, Cedrick Unavailable REASON FOR VISIT Patient presents today for a gi bleed Encounters Encounter Location Date Provider Diagnosis [facility] [address] [facility] [address] [place] [phone] 01/09/2025 Cedrick Justin Jr Plan Of Treatment Next Appt Details Provider Name:Cedrick licona Jr, 03/27/2025 02:15:00 PM, [address] [facility], [address], [place], [address], Progress Notes * TOMEKA OLIVIERDOB:[birth year] (84 yo M)Acc No.[id number]:01/09/2025 Progress Notes Patient: TOMEKA IRVIN Provider: Jerica Justin MD :1940 A ge:84 Y S ex:Male Date:01/09/2025 Address:[address] [place] [address] [id number] Pcp:Vini Mendoza MD Subjective: * Chief Complaints: [...] 01/09/2025 Generated for Meg brenner/Min/Derick on: 0 02/21/2025 01:33 PM EDT
--- OUTSIDE RECORDS SUMMARY | 2025-01-10 09:00 | XMS_ITS ---
Author Organization [facility] Address [address] [place] [address] Care Team Providers Care Audio Specialist Name Role Phone Vini Mendzoa MD Primary Care Provider Jennifer Justin Jr, Cedrick Blank [phone] REASON FOR VISIT anemia Medications Medication SIG [...] Active Encounters Encounter Location Date Provider Diagnosis [facility] In[facility] [address] [place], [place] [phone] 01/10/2025 Cedrick Justin Jr Plan Of Treatment Next Appt Details Provider Name:Cedrick licona Jr, 03/27/2025 02:15:00 PM, [address], [address], [place], [address], Progress Notes * TOMEKA OLIVIERDOB:[birth year] (84 yo M)Acc No.[id number]:01/10/2025 COLON WITH MAC Patient: TOMEKA IRVIN Provider: Jerica Justin MD :1940 A ge:84 Y S ex:Male Date:01/10/2025 Address:[address] [place] [address], [id number] Pcp:Vini Mendoza MD Subjective: * Chief Complaints: [...] 0 01/10/2025 Generated for Meg brenner/Min/Jordenitting on: 0 02/21/2025 01:34 PM EDT
--- OUTSIDE RECORDS SUMMARY | 2025-01-23 05:00 | XMS_ITS ---
Author Organization Vini Mendoza MD Address [address] [place] [phone] Care Team Providers Care Drawbridge Operator Name Role Phone Vini Mendoza Primary Care Provider [phone] Allergies No Known Allergies Results Component Value Reference Range Notes Complete Blood Count Auto Di ff Reviewed date:01/23/2025 12:30:04 PM Interpretation: Performing Lab:[facility], [address] [place] [phone] Notes/Report: White Blood Count 9.6 4.8-10.8 X10*3/uL [...] kg/m2 01/23/2025 weight is down 6 pounds [facility] 12-29-24 Encounters Encounter Location Date Provider Diagnosis Vini Mendoza MD [address] [place] [phone] 01/23/2025 Vnii Mendoza Anemia D64.9 Assessments Encounter Date Diagnosis (ICD Code) Assessment Notes Treatment Notes Treatment Clinical Notes Section Notes 01/23/2025 Anemia (ICD-10 - D64.9) pending labs Total time spent on the date of the encounter is 25 minutes including both face to face time spent and time spent reviewing documentation, pertinent lab data, studies and counseling the patient. Plan Of Treatment Treatment Notes Assessment Notes Anemia pending labs Total t efe spent on the date of the encounter is 25 minutes including both face to face time spent and time spent reviewing documentation, pertinent lab data, studies and counseling the patient. Next Appt Details Follow Up: 1 Week, Reason: Provider Name:Vini herzog, 02/23/2025 09:15:00 AM, [address] [place] [address], [place] [address], [place], [place], [phone], Provider Name:Vini P Danis herzog, 06/29/2025 07:45:00 AM, [address] [place] [address], [place] [address], [place], [place], [phone], Provider Name:Vini Karina Danis herzog, 07/06/2025 09:30:00 AM, [address] [place] [address], [place] [address], [place], [place], [phone], Progress Notes * Deacon ROMODOB:[birth year] (84 yo M)Acc No.[id number]:01/23/2025 Patient: Deacon IRVIN Provider: Galina Mendoza MD :1940 A ge:84 Y S ex:Male Date:01/23/2025 Address:[address] [place] [id number] Subjective: * Chief Complaints: * 1 . [...] Pending * Provider: Galina Mendoza MD Date: 01/23/2025 Generated for Meg brenner/Min/Derick on: 02/21/2025 01:33 PM EDT History and Physical Notes * [...]
--- OUTSIDE RECORDS SUMMARY | 2025-01-25 05:20 | XMS_ITS ---
Author Organization [facility] Address [address] [place] [address] Care Team Providers Care Desk Maker Name Role Phone Vini Mendoza MD Primary Care Provider Jennifer Justin Jr, Cedrick Blank REASON FOR VISIT fam hx colon ca, anemia Encounters Encounter Location Date Provider Diagnosis [facility] [address] [facility] [address] [place] [phone] 01/25/2025 Cedrick Justin Jr Plan Of Treatment Next Appt Details Provider Name:Cedrick licona Jr, 03/27/2025 02:15:00 PM, [address], [address], [place], [address], Progress Notes * TOMEKA OLIVIERDOB:[birth year] (84 yo M)Acc No.[id number]:01/25/2025 Progress Notes Patient: TOMEKA IRVIN Provider: Jerica Justin MD :1940 A ge:84 Y S ex:Male Date:01/25/2025 Address:[address] [place], [place] [id number] Pcp:Vini Mendoza MD Subjective: * Chief Complaints: [...] MD Date: 0 01/25/2025 Generated for Meg brenner/Min/Jordenitting on: 0 02/21/2025 01:34 PM EDT
--- OUTSIDE RECORDS SUMMARY | 2025-02-02 06:30 | XMS_ITS ---
Author Organization Vini Mendoza MD Address [address] [place] [phone] Care Team Providers Care Playground Supervisor Name Role Phone Vini Mendoza Primary Care Provider [phone] Allergies No Known Allergies Results Component Value Reference Range Notes Comprehensive [place]. Panel Fa st (Not yet reviewed by provider) Interpretation:02-21-2025 Performing Lab:[facility], [address] [place] [phone] Notes/Report: Sodium 141 135-145 mmol/L Potassium 3.9 3.3-5.1 mmol/L Chloride 107 96-108 mmol/L Carbon Dioxide 26 22-29 mmol/L Anion Gap 12 12-20 Blood Urea Nitrogen 10 9-16 mg/dL Creatinine 1.03 0.5-1.4 mg/dL Estimated Glomerular Filt Rate > 60 Chronic Kidney Disease: Estimated GFR < 60 mL/min/1.73m2 Severe Kidney Disease: Estimated GFR < 15 mL/min/1.73m2 Glucose Fasting 107 60-99 mg/dL A fasting glucose from 100-125 mg/dl is considered impaired (pre-diabetes). Calcium 8.2 8.4-10.2 mg/dL Bilirubin Total 1.2 0.0-1.0 mg/dL Aspartate Amino Transferase 350 5-37 U/L Alanine Aminotransferase 160 0-40 U/L Total Protein 5.9 6.5-8.0 g/dL Albumin Level 3.5 3.5-5.0 g/dL Alkaline Phosphatase 114 39-117 U/L Complete Blood Count Auto Di ff Reviewed date:02/02/2025 04:51:19 PM Interpretation: Performing Lab:[facility], [address] [place] [phone] Notes/Report: White Blood Count 6.9 4.8-10.8 X10*3/uL Red Blood Count 3.85 4.60-5.80 X10*6/uL Hemoglobin 9.0 14.0-18.0 g/dl Hematocrit 30.7 42.0-52.0 % Mean Corpuscular Volume 79.7 80.0-98.0 fL Mean Corpuscular Hemoglobin 23.4 27.0-33.0 pg Mean Corpuscular HGB Conc 29.3 31.0-36.0 g/dl Red Cell Distribution Width 18.4 11.0-16.0 % Platelet Count 270 160-400 X10*3/uL Mean Platelet Volume 11.4 9.4-12.4 fL Neutrophils Percent Auto 69.1 45-73 % Imm Gran Pct Auto 0.3 0.0-0.4 % Lymphocytes Percent Auto 18.2 20-40 % Monocytes Percent Auto 8.3 2-11 % Eosinophils Percent Auto 3.2 0-4 % Basophils Percent Auto 0.9 0-2 % NRBC Pct Auto 0.0 0.0-0.2 /100WBC Neutrophils Absolute Auto 4.8 2.0-8.3 x10*3/u L Imm Gran Abs Auto 0.02 0.00-0.03 X10*3/uL Lymphocytes Absolute Auto 1.3 1.2-4.9 X10*3/u L Monocytes Absolute Auto 0.6 0.1-1.2 X10*3/uL Eosinophils Absolute Auto 0.2 0.0-0.4 X10*3/u L Basophils Absolute Auto 0.1 0.0-0.2 X10*3/uL NRBC Abs Auto 0.000 0.0-0.012 X10*3/uL REASON FOR VISIT 1 week Medications Medication SIG (Take, Route, Frequency, Duration) Notes Start Date End Date Status Metoprolol Succinate ER 50 MG 0.5 tab twice a day for 90 days Active Atorvastatin Calcium 40 MG TAKE ONE TABLET BY MOUTH EVERY DAY Orally for 90 days Active Ozempic (0.25 or 0.5 MG/DOSE) 2 MG/3ML as directed Subcutaneous 0.25 mg weekly fminth then .5mg weekly for 30 days 02/22/2024 Not-Taking Valtrex 1 GM 2 tablet Orally ever y 12 hrs for 1 dose 05/07/2012 Not-Taking Eliquis 5 MG as directed Orally T wice a day Active Omeprazole 20 MG 1 capsule 1/2 to 1 h our before morning meal Orally twice a day for 30 days 12/29/2024 Active Aspirin 81 81 MG 1 tablet Orally Once a day for 30 day(s) 12/29/2024 Active Ozempic (2 MG/DOSE) 8 MG/3ML INJECT 2MG UNDER THE SKIN ONCE A WEEK for 28 Active Clopidogrel Bisulfate 75 MG 1 tablet Orally Once a day Active Fluticasone Propionate 50 MCG/ACT SPRAY 1 [...] MOUTH TWICE A DAY WITH MEALS Active Januvia 100 MG TAKE ONE TABLET BY M OUTH EVERY DAY for 90 Active Aspir-Low 81 MG [...] Dev as directed for 50 03/03/2013 Active Immunizations Vaccine Route Administration Date Status Comme nts Influenza High Dose IM Intramuscular 02/02/2025 Administer ed Vital Signs Blood pressure systolic 128 mm Hg 02/03/20 25 Blood pressure diastolic 64 mm Hg 025 Height 70 in 02/02/2025 Weight 183 lbs 02/02/2025 BMI 26.25 kg/m2 02/02/2025 Encounters Encounter Location Date Provider Diagnosis Vini Mendoza MD [address] [place], [place] [phone] 02/02/2025 Vini Mendoza Anemia D64.9 ; Weakness R53.1 and Encounter for administration of vaccine Z23 Assessments Encounter Date Diagnosis (ICD Code) Assessment Notes Treatment Notes Treatment Clinical Notes Section Notes 02/02/2025 Anemia (ICD-10 - D64.9) no longer seeing any rectal bleeding feeling somewnat better 02/02/2025 Weakness (ICD-10 - R53.1) am conserned with the ongoing elevation of his liver tests. may be related to the high dose ststins. will hold off on those and repeat in 2 weaks and see if they diminish 02/02/2025 Encounter for administration of vaccine (ICD-10 - Z23) HD flu vaccine administered Plan Of Treatment Treatment Notes Assessment Notes Anemia no longer seeing any rectal bleeding feeling somewnat better Weakness am conserned with th e ongoing elevation of his liver tests. may be related to the high dose ststins. will hold off on those and repeat in 2 weaks and see if they diminish Encounter for administration of vaccine HD flu vaccine administered Pending Test Test Name Order Date Comprehensive [place]. Panel Fast Next Appt Details Follow Up: 3 Weeks, Reason: Provider Name:Vini herzog, 02/23/2025 09:15:00 AM, [address], [address], [place], [place], [phone], Provider Name:Vini Moscoso ier, 06/29/2025 07:45:00 AM, [address], [address], [place], [phone], Provider Name:Vini Moscoso ier, 07/06/2025 09:30:00 AM, [address], [address], [place], [phone], Progress Notes * Deacon ROMODOB:[birth year] (84 yo M)Acc No.[id number]:02/02/2025 Progress Notes Patient: Deacon IRVIN Provider: Galina Mendoza MD :1940 A ge:84 Y S ex:Male Date:02/02/2025 Address:[address] [place] [address] [place], [phone] Subjective: * Chief Complaints: * 1 week * HPI: S ymptom(s): patient is a 84 yo male here for one week follow up visit. still a little weak/ still with no desire for food. since cominig out of the hospital. food is not the same. is back on the ozempic. the cardiac surgeon said that happens. * ROS: G eneral/Constitutional: Denies C hills. [...] S hortness of breath. G astrointestinal: Denies D iarrhea. D enies N ausea. * Medical History: * Surgical History: * Hospitalization/Major Diagno stic Procedure: * Medications: T akingOneTouch Ultra Test Strip TEST BLOOD GLUCOSE TWICE A DAY OneTouch Delica Lancing Dev Miscellaneous as directed Aspir-Low 81 MG Tablet Delayed Release 1 tablet Orally Once a day Xyzal Allergy 24HR 5 MG Tablet 1 tablet in the evening Orally Once a day Montelukast Sodium 10 MG Tablet TAKE ONE TABLET BY MOUTH EVERY EVENING Irbesartan-hydroCHLOROthiazide 150-12.5 MG Tablet TAKE ONE TABLET BY MOUTH EVERY DAY Finasteride 5 MG Tablet 1 tablet Orally Once a day Fluticasone Propionate 50 MCG/ACT Suspension SPRAY 1 SPRAY INTO EACH NOSTRIL ONCE A DAY Nitrostat 0.4 MG Tablet Sublingual 1 tablet under the tongue and allow to dissolve as needed. Take every 5 minutes up to 3 times if chest pain persists Sublingual Three times a day Ozempic (1 MG/DOSE) 4 MG/3ML Solution Pen-injector 1 mg Subcutaneous weekly metFORMIN HCl 1000 MG Tablet TAKE ONE TABLET BY MOUTH TWICE A DAY WITH MEALS Januvia 100 MG Tablet TAKE ONE TABLET BY MOUTH EVERY DAY Clopidogrel Bisulfate 75 MG Tablet 1 tablet Orally Once a day Eliquis 5 MG Tablet as directed Orally Twice a day Omeprazole 20 MG Capsule Delayed Release 1 capsule 1/2 to 1 hour before morning meal Orally twice a day Aspirin 81 81 MG Tablet Delayed Release 1 tablet Orally Once a day Ozempic (2 MG/DOSE) 8 MG/3ML Solution Pen-injector INJECT 2MG UNDER THE SKIN ONCE A WEEK Metoprolol Succinate ER 50 MG Tablet Extended Release 24 Hour 0.5 tab twice a day Atorvastatin Calcium 40 MG Tablet TAKE ONE TABLET BY MOUTH EVERY DAY Orally Taking OneTouch Ultra Test Strip TEST BLOOD GLUCOSE TWICE A DAY Taking OneTouch Delica Lancing Dev Miscellaneous as directed Taking Aspir-Low 81 MG Tablet Delayed Release 1 tablet Orally Once a day Taking Xyzal Allergy 24HR 5 MG Tablet 1 tablet in the evening Orally Once a day Taking Montelukast Sodium 10 MG Tablet TAKE ONE TABLET BY MOUTH EVERY EVENING Taking Irbesartan-hydroCHLOROthiazide 150-12.5 MG Tablet TAKE ONE TABLET BY MOUTH EVERY DAY Taking Finasteride 5 MG Tablet 1 tablet Orally Once a day Taking Fluticasone Propionate 50 MCG/ACT Suspension SPRAY 1 SPRAY INTO EACH NOSTRIL ONCE A DAY Taking Nitrostat 0.4 MG Tablet Sublingual 1 tablet under the tongue and allow to dissolve as needed. Take every 5 minutes up to 3 times if chest pain persists Sublingual Three times a day Taking Ozempic (1 MG/DOSE) 4 MG/3ML Solution Pen-injector 1 mg Subcutaneous weekly Taking metFORMIN HCl 1000 MG Tablet TAKE ONE TABLET BY MOUTH TWICE A DAY WITH MEALS Taking Januvia 100 MG Tablet TAKE ONE TABLET BY MOUTH EVERY DAY Taking Clopidogrel Bisulfate 75 MG Tablet 1 tablet Orally Once a day Taking Eliquis 5 MG Tablet as directed Orally Twice a day Taking Omeprazole 20 MG Capsule Delayed Release 1 capsule 1/2 to 1 hour before morning meal Orally twice a day Taking Aspirin 81 81 MG Tablet Delayed Release 1 tablet Orally Once a day Taking Ozempic (2 MG/DOSE) 8 MG/3ML Solution Pen-injector INJECT 2MG UNDER THE SKIN ONCE A WEEK Taking Metoprolol Succinate ER 50 MG Tablet Extended Release 24 Hour 0.5 tab twice a day Taking Atorvastatin Calcium 40 MG Tablet TAKE ONE TABLET BY MOUTH EVERY DAY Orally Not-Taking/PRNOzempic (0.25 or 0.5 MG/DOSE) 2 MG/3ML Solution Pen- injector as directed Subcutaneous 0.25 mg weekly fminth then .5mg weekly Valtrex 1 GM Tablet 2 tablet Orally every 12 hrs Not-Taking/PRN Ozempic (0.25 or 0.5 MG/DOSE) 2 MG/3ML Solution Pen-injector as directed Subcutaneous 0.25 mg weekly fminth then .5mg weekly Not-Taking/PRN Valtrex 1 GM Tablet 2 tablet Orally every 12 hrs DiscontinuedMetoprolol Tartrate 25 MG Tablet 1/2 tablet with food Orally Twice a day Medication List reviewed and reconciled with the patientDiscontinued Metoprolol Tartrate 25 MG Tablet 1/2 tablet with food Orally Twice a day Medication List reviewed and reconciled with the patient * Allergies: N .K.D.A.yes[Allergies Verified] Objective: * Vitals: H t: 70, Wt: 183, BMI:26.25, BP:128/64, Wt-k.01. * Examination: G eneral Examination: GENERAL APPEARANCE: a lert, well hydrated, in no distress.? HEAD: n ormocephalic. SKIN: g ood turgor. HEART: r egular rate and rhythm, no murmurs, rubs, gallops.? LUNGS: n o wheezes, rales, rhonchi, good air movement, clear to auscultation bilaterally. Assessment: * Assessment: 1. A nemia - D64.9 (Primary) 2 . W eakness - R53.1 3 . E ncounter for administration of vaccine - Z23 Plan: * Treatment: 2. W eakness L AB: Comprehensive [place]. Panel Fast (Collection Date & Time - 02/02/2025 10:30 AM) L AB: Complete Blood Count Auto Diff (Collection Date & Time - 02/02/2025 10:30 AM) Notes: am conserned with the ongoing elevation of his liver tests. may be related to the high dose ststins. will hold off on those and repeat in 2 weaks and see if they diminish 3. E ncounter for administration of vaccine Notes: HD flu vaccine administered * Immunizations: Influenza High Dose : 0.5 mL (Dose No:1) (Route: Intramuscular) given by Nel Borges , Office Staff on Left Deltoid * Procedure Codes: 3 6415 VENIPUNCT, ROUTINE*[id number] FLU VACC PRSV FREE INC [id number] ADMN FLU VAC NO FEE SCHED SAME DAY * Preventive Medicine: Immunizations: I nfluenza H ave you had a flu shot since the most recent January 30? Y es. * Follow Up: 3 Weeks * * Sign off status: Completed true * Provider: Galina Mendoza MD Date: 0 02/02/2025 Generated for Meg brenner/Min/Jordenitting on: 02/21/2025 01:33 PM EDT History and Physical Notes * HPI (History of Present Illness) Category Sub-Category Detail Notes Category Not es Symptom(s) patient is a 84 yo male here for one week follow up visit. still a little weak/ still with no desire for food. since cominig out of the hospital. food is not the same. is back on the ozempic. the cardiac surgeon said that happens. Examination Category Sub-Category Detail Notes Category Not es General Examination GENERAL APPEARANCE: alert, w ell hydrated, in no distress HEAD: normocephalic HEART: regular rate and rhy thm, no murmurs, rubs, gallops LUNGS: no wheezes, rales, r honchi, good air movement, clear to auscultation bilaterally SKIN: good turgor
--- OUTSIDE RECORDS SUMMARY | 2025-02-03 07:30 | XMS_ITS ---
Author Organization Vini Mendoza MD Address [address] [facility] [address] [place] [address] [phone] Care Team Providers Care Catapult And Arresting Gear Officer Name Role Phone Vini Mendoza Primary Care Provider [phone] REASON FOR VISIT Labs Encounters Encounter Location Date Provider Diagnosis Vini Mendoza MD [address] [facility] [address] [place] [address] [phone] 02/03/2025 Vini Mendoza Plan Of Treatment Next Appt Details Provider Name:Vini herzog, 02/23/2025 09:15:00 AM, [address] [facility], Suite [facility], [place], [place], [phone], Provider Name:Vini herzog, 06/29/2025 07:45:00 AM, [address], [address], [place], [phone], Provider Name:Vini Moscoso mino, 07/06/2025 09:30:00 AM, [address], [address], [place], [phone], Progress Notes * Deacon ROMODOB:[birth year] (84 yo M)Acc No.[id number]:02/03/2025 Patient: Deacon IRVIN :1940 A ge:84 Y S ex:Male Address:[address] [place] [address], [place] [address] * true * Date: Generated for Meg brenner/Min/Donsmitting on: 0 02/21/2025 01:33 PM EDT
--- OUTSIDE RECORDS SUMMARY | 2025-02-21 03:21 | XMS_ITS ---
Author Organization Vini Mendoza MD Address [address] [place] [phone] Care Team Providers Care Director Of Athletics Name Role Phone Vini Mendoza Primary Care Provider [phone] REASON FOR VISIT black stools Encounters Encounter Location Date Provider Diagnosis Vini Mendoza MD [address] [facility] [address] [place] [phone] 02/21/2025 Vini Mendoza Plan Of Treatment Next Appt Details Provider Name:Vini herzog, 02/23/2025 09:15:00 AM, [address] [facility], Suite [facility], [place], [place], [phone], Provider Name:Vini herzog, 06/29/2025 07:45:00 AM, [address], [address], [place], [phone], Provider Name:Vini Moscoso mino, 07/06/2025 09:30:00 AM, [address], [address], [place], [phone], Progress Notes * Deacon ROMODOB:[birth year] (84 yo M)Acc No.[id number]:02/21/2025 Patient: Deacon IRVIN :1940 A ge:84 Y S ex:Male Address:[address] [place] [address], [place] [address] * true * Date: Generated for Meg brenner/Min/Donsmitting on: 0 02/21/2025 01:33 PM EDT
--- OUTSIDE RECORDS SUMMARY | 2025-02-21 04:15 | XMS_ITS ---
Author Organization Vini Mendoza MD Address [address] [place] [phone] Care Team Providers Care Ct Mri Technologist Name Role Phone Vini Mendoza Primary Care Provider [phone] Results Component Value Reference Range Notes Complete Blood Count Auto Di ff Reviewed date:02/21/2025 11:59:09 AM Interpretation: Performing Lab:[facility], [address] [place] [phone] Notes/Report: White Blood Count 6.3 4.8-10.8 X10*3/uL [...] Panel Reviewed date:02/21/2025 12:42:16 PM Interpretation: Performing Lab:[facility], [address] [place] [phone] Notes/Report: Bilirubin Total 0.8 0.0-1.0 mg/dL Bilirubin Direct 0.3 0.0-0.5 mg/dL Aspartate Amino Transferase 46 5-37 U/L Alanine Aminotransferase 47 0-40 U/L Total Protein 6.2 6.5-8.0 g/dL Albumin Level 3.6 3.5-5.0 g/dL Alkaline Phosphatase 102 39-117 U/L REASON FOR VISIT liver and CBC Encounters Encounter Location Date Provider Diagnosis Vini Mendoza MD [address] [place] [address] Drive [address] [place], [place] [phone] 02/21/2025 Vini Mendoza Iron deficiency anemia D50.9 and Elevated liver function tests R79.89 Assessments Encounter Date Diagnosis (ICD Code) Assessment Notes Treatment Notes Treatment Clinical Notes Section Notes 02/21/2025 Iron deficiency anemia (ICD-10 - D50.9) 02/21/2025 Elevated liver function tests (ICD-10 - R79.89) Plan Of Treatment Next Appt Details Provider Name:Vini Moscoso ier, 02/23/2025 09:15:00 AM, [address] [place] [address], [address], [place], [phone], Provider Name:Vini Moscoso ier, 06/29/2025 07:45:00 AM, [address] [place] [address], Suite [facility], [place], [phone], Provider Name:Vini Moscoso ier, 07/06/2025 09:30:00 AM, [address] [place] [address], Suite [facility], [place], [phone], Progress Notes * Deacon ROMODOB:[birth year] (84 yo M)Acc No.[id number]:02/21/2025 Progress Note Patient: Deacon IRVIN Provider: Galina Mendoza MD :1940 A ge:84 Y S ex:Male Date:02/21/2025 Address:[address] [place] [address] [place], [phone] Subjective: * Chief Complaints: * 1 . [...] MD Date: 0 02/21/2025 Generated for Meg brenner/Min/Jordenitting on: 0 02/21/2025 01:33 PM EDT
[2025-02-21 11:31] LABS: Hematocrit 32.4 % (42.0-52.0); Hemoglobin 9.6 g/dl (14.0-18.0); Imm Gran Abs Auto 0.01 X10*3/uL (0.00-0.03); Imm Gran Pct Auto 0.2 % (0.0-0.4); Lymphocytes Absolute Auto 1.9 X10*3/uL (1.2-4.9); Mean Corpuscular HGB Conc 29.6 g/dl (31.0-36.0); Mean Corpuscular Hemoglobin 23.5 pg (27.0-33.0); Mean Corpuscular Volume 79.4 fL (80.0-98.0); NRBC Abs Auto 0.000 X10*3/uL (0.0-0.012); NRBC Pct Auto 0.0 /100WBC (0.0-0.2); Platelet Count 319 X10*3/uL (160-400); Red Blood Count 4.08 X10*6/uL (4.60-5.80); White Blood Count 6.3 X10*3/uL (4.8-10.8)
[2025-02-21 11:45] LABS: Alanine Aminotransferase 47 U/L (0-40); Albumin Level 3.6 g/dL (3.5-5.0); Alkaline Phosphatase 102 U/L (39-117); Aspartate Amino Transferase 46 U/L (5-37); Total Protein 6.2 g/dL (6.5-8.0)
--- OUTSIDE RECORDS SUMMARY | 2025-02-21 13:34 | XMS_ITS | Patient Health Record ---
Author Organization [facility] Address [address] [place] [address] Care Team Providers Care Visiting Teacher Name Role Phone Vini Mendoza MD Primary Care Provider Cedrick Becerra Jr Unavailable Allergies Allergen (clinical drug ingredient) Drug/Non Drug Allergy documented on EMR Reaction Allergy Type Onset Date Status seasonal (uncoded) Unknown Allergy A ctive Results Component Value Reference Range Notes US abdomen comp w elastograp hy Reviewed date:01/10/2025 12:58:18 PM Interpretation: Performing Lab: Notes/Report: [address] [address] Ultrasound Report Signed Patient: Deacon Romo MR#: [id number] 682 : 1940 Acct:[id number] Age/Sex: 84 / M ADM Date: 01/06/25 Loc: [facility] 473-[address]: Krishna Lemon MD Ordering Physician: Leo Guo MD Date of Service: 01/07/25 Procedure(s): US abdomen comp w elastography Accession Number(s): [id number] cc: Vini Mendoza MD; Leo Guo MD EXAMINATION: US COMPLETE ABDOMEN WITH LIVER ELASTOGRAPHY CLINICAL INFORMATION: Elevated LFTs COMPARISON: Ultrasound abdomen 01/02/2023 TECHNIQUE: Real-time imaging of the abdominal viscera. Noninvasive ultrasound liver fibrosis assessment is performed using [employer] ElastPQ point quantification shear wave elastography (pSWE) [...] in OV> 01/09/25712 DD/ 9 TD/TT: 01/07/25829 Technology Applications Consultant: LISA Complete Blood Count Auto Di ff Reviewed date:01/10/2025 12:57:13 PM Interpretation: Performing Lab:[facility], [address] [place] [phone] Notes/Report: White Blood Count 6.1 4.8-10.8 X10*3/uL [...] Pathology Reviewed date:01/15/2025 10:51:17 PM Interpretation: Performing Lab:[facility], [address] [place] [phone] Notes/Report: Complete Blood Count Auto Di ff Reviewed date:01/10/2025 12:56:35 PM Interpretation: Performing Lab:[facility], [address] [place] [phone] Notes/Report: White Blood Count 4.9 4.8-10.8 X10*3/uL [...] g Reviewed date:01/10/2025 12:56:52 PM Interpretation: Performing Lab:[address] [address] Notes/Report: Sodium 145 135-145 mmol/L Potassium 3.8 [...] Pathology Reviewed date:01/12/2025 12:57:41 PM Interpretation: Performing Lab:[address] [phone] Notes/Report: Reason For Referral No Information Medications [...] Problem Status W/U Status Risk Notes Problem 354488900 Colon cancer screening (Z12.11) Active confirmed Problem 386040623 Personal history of colonic polyps (Z86.010) Active confirmed Problem Anemia (904309742) Anemia (D64.9) Active confirmed Problem 428118211 Long-term use of aspirin therapy (Z79.82) Active confirmed Problem Chronic gastritis (7465160) Chronic gastritis (K29.50) Active confirmed Problem 173896471 Long-term curren t use of high risk medication other than anticoagulant (Z79.899) Active confirmed Problem 359680698 FH: colon cancer (Z80.0) Active confirmed Problem 60200582 Hypertension, unspecified type (I10) Active confirmed Problem Anemia (271258490) Acute anemia (D64.9) Active confirmed Vital Signs Temperature 97.8 degrees Fahrenheit 11/09/2024 Blood pressure diastolic 01 mm Hg 11/09/2024 Height 69.5 in 11/09/2024 Blood pressure systolic 001 mm Hg 11/09/2024 Weight 193 lbs 11/09/2024 BMI 28.09 kg/m2 11/09/2024 Encounters Encounter Location Date Provider Diagnosis [facility] In[facility] [address] [place], [place] [id number] 01/10/2025 Cedrick Justin Jr [facility] [address] [place] [phone] 11/09/2024 Cedrick Justin Jr Colon polyps K63.5 ; Anemia D64.9 and Colon cancer screening Z12.11 [facility] [address] [place] [address] 01/03/2025 Cedrick Justin Jr [facility] [address] [place] [address] 01/08/2025 Cedrickmaikel Justin Jr [facility] [address] [place] [address] 01/12/2025 Cedrick Justin Jr Assessments Encounter Date [...] Name:Cedrick licona Jr, 03/27/2025 02:15:00 PM, [address], [address], [place], [address], Insurance Providers Payer Name Payer Address Payer Phone Subscriber Number Group Number Insured Name Patient Relationship to Insured Coverage Start Date Coverage End Date [facility] [address] [place], [place] [phone] [id number] DEACON ROMO Self - patient is the insured FOR [employer] [address] [place] [address] [phone] [id number] DEACON ROMO Self - patient is the [...]
--- OUTSIDE RECORDS SUMMARY | 2025-02-21 13:34 | XMS_ITS | Clinical Summary ---
Author Organization [facility] Address [address] [place] [address] Phone Care Team Providers Care Senior Structural Engineer Name Role Phone Pcp, Unknown Primary Care Provider Unavailabl e Encounters Date Type Department Care Team Description 12/21/2024 Orders Only [facility] [address] [place] [address] ProviderLupe MD from Last 3 Months Social [...] VACCINE (1 - 1-dose 75+ series) 2016 INFLUENZA VACCINE (#1) 2024 COVID-19 VACCINE ( - 2023-2 5 season) 2025 HEPATITIS A VACCINES Aged Out No long [...] Final Result from Last 3 Months Insurance [facility] MED[facility] REPLACEMENT FOR[facility]LY [facility] MEDICARE SUPPLEMENT [facility] RE[facility]ACEMENT FOR LIFE MEDICARE SUPPLEMENT [facility] MEDIC[facility] REPLACEMENT FOR LIFE MED[facility] FOR [facility] RE[facility] FOR [facility] MEDIC[facility] FOR LIFE MEDICARE SUPPLEMENT Care Teams Senior Structural Engineer Relationship Specialty Start Date End Date Pcp, Unknown PCP - General 12/21/24 Additional Source Comments The information contained in this document represents components of the legal health record. It is not the complete legal health record.[facility]
--- OUTSIDE RECORDS SUMMARY | 2025-02-21 13:35 | XMS_ITS | Patient Health Record ---
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 Name Role Phone Vini Mendoza Primary Care Provider Allergies No Known Allergies Results Component Value Reference Range Notes Hemoglobin A1c Reviewed date:02/22/2024 09:50:23 AM Interpretation: Performing Lab: Notes/Report: Hemoglobin A1c 8.0 Hemoglobin A1c Reviewed date:10/21/2024 09:43:33 AM Interpretation: Performing Lab: Notes/Report: Hemoglobin A1c 6.2 Complete Blood Count Auto Di ff Reviewed date:07/04/2024 07:18:28 AM Interpretation:see back 07-01-24 Performing Lab:[facility], [address] [place] [phone] Notes/Report: White Blood Count 7.9 4.8-10.8 X10*3/uL [...] NRBC Abs Auto 0.000 0.0-0.012 X10*3/uL Comprehensive [place]. Panel Fa st Reviewed date:06/26/2024 04:58:35 PM Interpretation: Performing Lab:[facility], [address] [place] [address] Notes/Report: Sodium 141 135-145 mmol/L Potassium 4.8 [...] Panel Reviewed date:06/25/2024 12:29:18 PM Interpretation: Performing Lab:[facility], [address] [place] [address] Notes/Report: Triglycerides 138 <150 mg/dL Desirable Triglyceride: [...] (Free>4and<10) Reviewed date:06/25/2024 12:29:08 PM Interpretation: Performing Lab:[facility], [address] [place] [address] Notes/Report: PSA,Total (Free>4and<10) 0.67 0.00-4.00 ng/mL A [...] Reviewed date:06/25/2024 12:28:59 PM Interpretation: Performing Lab:[address] [address] Notes/Report: Creatinine Urine 225.05 Microalbumin Urine 44.0 Microalbum/Creatinine Ratio Ur 19.5 <30 ug/mg cr Albumin/Creatinine Ratio Reference Ranges: Normal: < 30 ug/mg creatinine Microalbuminuria: 30 - 300 ug/mg creatinine Clinical Albuminuria: > 300 ug/mg creatinine Hemoglobin A1c Reviewed date:06/24/2024 01:15:12 PM Interpretation: Performing Lab:[address] [address] Notes/Report: Hemoglobin A1c % 6.9 <6.0 % [...] average glucose, using the formula of the P4G-Nzlxfax Average Glucose study (ADAG), Diabetes Care, Vol.31,#8, Dec. 2007 UA ClnCatch+Micro w/rflx Cul t Reviewed date:06/26/2024 05:02:46 PM Interpretation: Performing Lab:[address] [address] Notes/Report: Urine, Clean Catch Color Urine Yellow Appearance Urine Clear PH 5.5 5.0-9.0 Glucose Urine UA Negative Negative mg/dL Urine Blood Negative Negative Specific [place] - Urine >= 1.030 1.005-1.025 Urine Protein [...] ff Reviewed date:10/14/2024 12:43:08 PM Interpretation: Performing Lab:[facility], [address] [place] [address] Notes/Report: White Blood Count 7.0 4.8-10.8 X10*3/uL [...] Reviewed date:10/21/2024 10:14:21 AM Interpretation:CBACK 10/21 Performing Lab:[facility], [address] [place] [address] Notes/Report: Iron 20 45-160 mcg/dL Total Iron Binding Capacity 364 228-428 mcg/dL Percent Iron Saturation 5 15-50 % Unsaturated Iron Binding 344 Complete Blood Count Auto Di ff Reviewed date:01/02/2025 01:14:08 PM Interpretation: Performing Lab:[facility], [address] [place] [phone] Notes/Report: White Blood Count 9.6 4.8-10.8 X10*3/uL [...] Reviewed date:01/05/2025 03:11:21 PM Interpretation: Performing Lab:[address] [address] Notes/Report: White Blood Count 10.7 4.8-10.8 X10*3/uL [...] ff Reviewed date:01/23/2025 12:30:04 PM Interpretation: Performing Lab:[facility], [address] [place] [address] Notes/Report: White Blood Count 9.6 4.8-10.8 X10*3/uL [...] ff Reviewed date:02/21/2025 11:59:09 AM Interpretation: Performing Lab:[facility], [address] [place] [phone] Notes/Report: White Blood Count 6.3 4.8-10.8 X10*3/uL [...] 0.0-0.2 /100WBC Neutrophils Absolute Auto 3.4 2.0-8.3 x10*3/uL Imm Gran Abs Auto 0.01 0.00-0.03 X10*3/uL Lymphocytes Absolute Auto 1.9 1.2-4.9 X10*3/uL Monocytes Absolute Auto 0.7 0.1-1.2 X10*3/uL Eosinophils Absolute Auto 0.3 0.0-0.4 X10*3/uL Basophils Absolute Auto 0.1 0.0-0.2 X10*3/uL NRBC Abs Auto 0.000 0.0-0.012 X10*3/uL Liver Panel Reviewed date:02/21/2025 12:42:16 PM Interpretation: Performing Lab:[facility], [address] [place] [address] Notes/Report: Bilirubin Total 0.8 0.0-1.0 mg/dL Bilirubin Direct 0.3 0.0-0.5 mg/dL Aspartate Amino Transferase 46 5-37 U/L Alanine Aminotransferase 47 0-40 U/L Total Protein 6.2 6.5-8.0 g/dL Albumin Level 3.6 3.5-5.0 g/dL Alkaline Phosphatase 102 39-117 U/L Glucose, finger stick Reviewed date:02/22/2024 09:47:31 AM Interpretation: Performing Lab: Notes/Report: Value 159 Glucose, finger stick Reviewed date:04/15/2024 09:07:26 AM Interpretation: Performing Lab: Notes/Report: Value 125 Complete Blood Count Auto Di ff Reviewed date:07/01/2024 04:25:27 PM Interpretation: Performing Lab:[facility], [address] [place] [phone] Notes/Report: White Blood Count 10.5 4.8-10.8 X10*3/uL [...] PROFILE Reviewed date:07/03/2024 03:27:36 PM Interpretation: Performing Lab:[facility], [address] [place] [address] Notes/Report: Iron 35 45-160 mcg/dL Total Iron Binding Capacity 346 228-428 mcg/dL Percent Iron Saturation 10 15-50 % Unsaturated Iron Binding 311 Glucose, finger stick Reviewed date:10/21/2024 09:36:02 AM Interpretation: Performing Lab: Notes/Report: Value 124 Glucose, finger stick Reviewed date:11/18/2024 09:14:41 AM Interpretation: Performing Lab: Notes/Report: Value 118 Complete Blood Count Auto Di ff Reviewed date:12/30/2024 01:50:51 PM Interpretation: Performing Lab:[facility], [address] [place] [address] Notes/Report: White Blood Count 8.8 4.8-10.8 X10*3/uL [...] Panel Reviewed date:12/30/2024 08:57:33 AM Interpretation: Performing Lab:[facility], [address] [place] [phone] Notes/Report: Bilirubin Total 0.7 0.0-1.0 mg/dL Bilirubin Direct 0.3 0.0-0.5 mg/dL Aspartate Amino Transferase 157 5-37 U/L Alanine Aminotransferase 136 0-40 U/L Total Protein 5.7 6.5-8.0 g/dL Albumin Level 3.2 3.5-5.0 g/dL Alkaline Phosphatase 148 39-117 U/L Comprehensive [place]. Panel Fa (Not yet reviewed by provider) Interpretation:02-21-2025 Performing Lab:[facility], [address] [place] [address] Notes/Report: Sodium 141 135-145 mmol/L Potassium 3.9 [...] ff Reviewed date:02/02/2025 04:51:19 PM Interpretation: Performing Lab:[facility], [address] [place] [address] Notes/Report: White Blood Count 6.9 4.8-10.8 X10*3/uL [...] X10*3/uL NRBC Abs Auto 0.000 0.0-0.012 X10*3/uL Occult Blood, Stool, Guaiac Reviewed date:07/20/2024 08:37:52 AM Interpretation:Negative Performing Lab: Notes/Report: Negative Occult Blood, Stool, Guaiac NegX3 Complete Blood Count Auto Di ff Reviewed date:12/30/2024 11:59:39 AM Interpretation: Performing Lab:[facility], [address] [place] [address] Notes/Report: White Blood Count 7.3 4.8-10.8 X10*3/uL [...] B12 Reviewed date:07/03/2024 03:27:05 PM Interpretation: Performing Lab:[address] [address] Notes/Report: Vitamin B12 245 200-900 pg/mL NORMAL 200-900 PG/ML INDETERMINATE 160-199 PG/ML DEFICIENT < 160 PG/ML Folate Reviewed date:07/03/2024 03:27:13 PM Interpretation: Performing Lab:[facility], [address] [place] [phone] Notes/Report: Folate 11.5 > or = 4.0 ng/mL Reference Values: > or = 4.0 ng/mL < 4.0 ng/mL suggests folate deficiency Methotrexate, aminopterin and folinic acid (leucovorin) are chemotherapeutic agents whose molecular structures are similar to folate; therefore, the [employer] folate assay cannot be used for patients using these drugs. Complete Blood Count Auto Di ff Reviewed date:12/22/2024 12:43:17 PM Interpretation: Performing Lab:[facility], [address] [place] [address] Notes/Report: White Blood Count 17.2 4.8-10.8 X10*3/uL [...] Panel Reviewed date:12/22/2024 01:05:46 PM Interpretation: Performing Lab:[facility], [address] [place] [phone] Notes/Report: Sodium 139 135-145 mmol/L Potassium 4.4 [...] Panel Reviewed date:12/29/2024 02:32:21 PM Interpretation: Performing Lab:[address] [address] Notes/Report: Sodium 141 135-145 mmol/L Potassium 5.2 [...] date:01/10/2025 03:43:11 PM Interpretation: Performing Lab: Notes/Report: [address] [address] Ultrasound Report Signed Patient: Deacon Romo MR#: [id number] 682 : 1940 Acct:[id number] Age/Sex: 84 / M ADM Date: 12/30/24 Loc: [facility] Attending Dr: Vini Mendoza MD Ordering Physician: Thomas Araujo MD Date of Service: 12/30/24 Procedure(s): US renal BI Accession Number(s): [id number] cc: Thomas Araujo MD; Vini Mendoza MD [...] 01/10/25 1319 DD/ 1253 TD/TT: 12/30/24 1301 Supervisory Cbp Officer: [address] [address] Ultrasound Report Signed Patient: Ana María Romo MR#: [id number] 682 : 1940 Acct:[id number] Age/Sex: 84 / M ADM Date: 12/30/24 Loc: [facility] Attending Dr: Vini Mendoza MD Ordering Physician: Thomas Araujo MD Date of Service: 12/30/24 Procedure(s): US renal BI Accession Number(s): [id number] cc: Ramsey Araujo MD; Vini Mendoza MD [...] 01/10/2025 01:19 PM EDT Dictated By: Fabian Horton MD Signed By: <Electronically signed by Fabian Goddard MD in OV> 01/10/25 1319 DD/ 1253 TD/TT: 12/30/24 1301 Supervisory Cbp Officer: Complete Blood Count Auto Di ff Reviewed date:01/07/2025 04:59:35 PM Interpretation: Performing Lab:[facility], [address] [place] [address] Notes/Report: White Blood Count 8.5 4.8-10.8 X10*3/uL [...] INR Reviewed date:01/06/2025 08:57:34 AM Interpretation: Performing Lab:[facility], [address] [place] [address] Notes/Report: Prothrombin Time 14.1 10.9-12.4 [employer] [...] OBSX1 Reviewed date:01/06/2025 04:35:49 PM Interpretation: Performing Lab:[facility], [address] [place] [address] Notes/Report: OBS1 POSITIVE NEGATIVE Liver Panel Reviewed date:01/06/2025 04:38:51 PM Interpretation: Performing Lab:[facility], [address] [place] [address] Notes/Report: Bilirubin Total 1.3 0.0-1.0 mg/dL Bilirubin Direct 0.5 0.0-0.5 mg/dL Aspartate Amino Transferase 62 5-37 U/L Alanine Aminotransferase 133 0-40 U/L Total Protein 6.2 6.5-8.0 g/dL Albumin Level 3.7 3.5-5.0 g/dL Alkaline Phosphatase 190 39-117 U/L Basic Metabolic Panel Reviewed date:01/06/2025 04:51:22 PM Interpretation: Performing Lab:[facility], [address] [place] [address] Notes/Report: Sodium 141 135-145 mmol/L Potassium 4.6 [...] Magnesium Reviewed date:01/06/2025 04:35:59 PM Interpretation: Performing Lab:[address] [address] Notes/Report: Magnesium 1.8 1.6-2.6 mg/dL Glucose, Whole Blood Reviewed date:01/06/2025 04:35:38 PM Interpretation: Performing Lab:[facility], [address] [place] [address] Notes/Report: Glucose, Whole Blood 93 60-115 mg/dL METER # : [id number] Type and Screen Reviewed date:01/07/2025 04:52:18 PM Interpretation: Performing Lab:[facility], [address] [place] [address] Notes/Report: Results at Issue Units as of [...] Cells Reviewed date:01/07/2025 04:52:26 PM Interpretation: Performing Lab:[facility], [address] [place] [phone] Notes/Report: Red Blood Cells [id number] ARIANA RC Red Blood Cells TRANSFUSED 01/07/25 0807 Red Blood Cells [id number] ARIANA RC Red Blood Cells TRANSFUSED 01/06/25 1118 Glucose, Whole Blood Reviewed date:01/07/2025 04:52:34 PM Interpretation: Performing Lab:[address] [address] Notes/Report: Glucose, Whole Blood 83 60-115 mg/dL METER # : [id number] Glucose, Whole Blood Reviewed date:01/07/2025 04:51:39 PM Interpretation: Performing Lab:[facility], [address] [place] [address] Notes/Report: Glucose, Whole Blood 98 60-115 mg/dL METER # : [id number] Complete Blood Count no Diff Reviewed date:01/07/2025 04:54:34 PM Interpretation: Performing Lab:[facility], [address] [place] [address] Notes/Report: White Blood Count 5.7 4.8-10.8 X10*3/uL [...] Reviewed date:01/07/2025 04:52:10 PM Interpretation: Performing Lab:[address] [address] Notes/Report: Bilirubin Total 1.7 0.0-1.0 mg/dL Bilirubin Direct 0.5 0.0-0.5 mg/dL Aspartate Amino Transferase 43 5-37 U/L Alanine Aminotransferase 91 0-40 U/L Total Protein 5.2 6.5-8.0 g/dL Albumin Level 3.0 3.5-5.0 g/dL Alkaline Phosphatase 152 39-117 U/L Basic Metabolic Panel Reviewed date:01/07/2025 04:54:53 PM Interpretation: Performing Lab:[facility], [address] [place] [address] Notes/Report: Sodium 139 135-145 mmol/L Potassium 3.8 [...] Blood Reviewed date:01/07/2025 04:53:48 PM Interpretation: Performing Lab:[facility], [address] [place] [address] Notes/Report: Glucose, Whole Blood 91 60-115 mg/dL METER # : [id number] US abdomen comp w elastograp hy Reviewed date:01/09/2025 05:55:24 PM Interpretation: Performing Lab: Notes/Report: [address] [address] Ultrasound Report Signed Patient: Deacon Romo MR#: [id number] 682 : 1940 Acct:[id number] Age/Sex: 84 / M ADM Date: 01/06/25 Loc: [facility] 473-[address]: Krishna Lemon MD Ordering Physician: Leo Guo MD Date of Service: 01/07/25 Procedure(s): US abdomen comp w elastography Accession Number(s): [id number] cc: Vini Mendoza MD; Leo Guo MD [...] 01/09/25 0713 DD/ 0800 TD/TT: 01/07/25 0830 Supervisory Cbp Officer: [place] [address] Ultrasound Report Signed Patient: Ana María Romo MR#: [id number] 682 : 1940 Acct:[id number] Age/Sex: 84 / M ADM Date: 01/06/25 Loc: [facility] 473-[address]: Suzan Lemon MD Ordering Physician: Leo Guo MD Date of Service: 01/07/25 Procedure(s): US abd omen comp w elastography Accession Number(s): [id number] cc: Vini Mendoza MD; Leo Guo MD [...] Radiologi sts in Ultrasound Liver Stiffness Thresholds (2020): LIVER STIFFNESS THRESHOLDS: *Liver Stiffness equ al [...] 01/09/25 0713 DD/ 0800 TD/TT: 01/07/25 0830 Supervisory Cbp Officer: LISA CERVANTES chest 1V Reviewed date:01/07/2025 04:49:50 PM Interpretation: Performing Lab: Notes/Report: [address] [address] XRay Report Signed Patient: Deacon Romo MR#: [id number] 682 : 1940 Acct:[id number] Age/Sex: 84 / M ADM Date: 01/06/25 Loc: [facility] [facility]: Krishna Lemon MD Ordering Physician: Krishna Lemon MD Date of Service: 01/07/25 Procedure(s): XR chest 1V Accession Number(s): [id number] cc: Vini Mendoza MD; Krishna Lemon MD [...] 01/07/25 1147 DD/ 1146 TD/TT: 01/07/25 1146 Supervisory Cbp Officer: [place] [address] XRay Report Signed Patient: Ana María Romo MR#: [id number] 682 : 1940 Acct:[id number] Age/Sex: 84 / M ADM Date: 01/06/25 Loc: [place] [address]: Suzan Lemon MD Ordering Physician: Krishna Lemon MD Date of Service: 01/07/25 Procedure(s): XR chest 1V Accession Number(s): [id number] cc: Vini Mendoza MD; Krishna Lemno MD CLINICAL HISTORY: pl eual effusion 1 [...] 01/07/25 1147 DD/ 1146 TD/TT: 01/07/25 1146 Supervisory Cbp Officer: Glucose, Whole Blood Reviewed date:01/07/2025 04:50:31 PM Interpretation: Performing Lab:[facility], [address] [place] [address] Notes/Report: Glucose, Whole Blood 123 60-115 mg/dL METER # : [id number] Glucose, Whole Blood Reviewed date:01/07/2025 04:49:08 PM Interpretation: Performing Lab:[facility], [address] [place] [address] Notes/Report: Glucose, Whole Blood 123 60-115 mg/dL METER # : [id number] Glucose, Whole Blood Reviewed date:01/08/2025 02:53:57 PM Interpretation: Performing Lab:[facility], [address] [place] [address] Notes/Report: Glucose, Whole Blood 135 60-115 mg/dL METER # : [id number] Complete Blood Count no Diff Reviewed date:01/08/2025 02:53:57 PM Interpretation: Performing Lab:[facility], [address] [place] [address] Notes/Report: White Blood Count 5.8 4.8-10.8 X10*3/uL [...] Panel Reviewed date:01/08/2025 02:53:57 PM Interpretation: Performing Lab:[address] [address] Notes/Report: Sodium 140 135-145 mmol/L Potassium 4.1 [...] Blood Reviewed date:01/08/2025 02:53:57 PM Interpretation: Performing Lab:[facility], [address] [place] [address] Notes/Report: Glucose, Whole Blood 116 60-115 mg/dL METER # : [id number] Glucose, Whole Blood Reviewed date:01/08/2025 02:53:57 PM Interpretation: Performing Lab:[facility], [address] [place] [address] Notes/Report: Glucose, Whole Blood 134 60-115 mg/dL METER # : [id number] Glucose, Whole Blood Reviewed date:01/09/2025 05:55:24 PM Interpretation: Performing Lab:[facility], [address] [place] [address] Notes/Report: Glucose, Whole Blood 99 60-115 mg/dL METER # : [id number] Glucose, Whole Blood Reviewed date:01/09/2025 05:55:24 PM Interpretation: Performing Lab:[facility], [address] [place] [address] Notes/Report: Glucose, Whole Blood 137 60-115 mg/dL METER # : [id number] Complete Blood Count Auto Di ff Reviewed date:01/09/2025 11:56:45 AM Interpretation: Performing Lab:[facility], [address] [place] [address] Notes/Report: White Blood Count 6.1 4.8-10.8 X10*3/uL [...] Blood Reviewed date:01/09/2025 05:50:19 PM Interpretation: Performing Lab:[facility], [address] [place] [address] Notes/Report: Glucose, Whole Blood 100 60-115 mg/dL METER # : [id number] Pathology Reviewed date:01/11/2025 02:08:52 PM Interpretation: Performing Lab:[facility], [address] [place] [address] Notes/Report: ----- Name: Nury Romo Age/Sex: 84/M : 1940 Unit#: [id number] Attend Dr: Hal Monroy [place] Re01/06/25 Status : DIS IN Location: [facility] 473-1 Disch: 01/10/25 ----- SPEC : [id number] RECD : 01/09/25-1529 STATUS: STANILSAW JULIANE NUM: [id number] DEISY: 01/09/25-1418 [facility] DR: Leo Guo MD ENTERED: 01/09/25-15 36 [...] in specimen B, supported by AB/PAS stains whi le no foveolar metaplasia is seen in part [...] Nury Romo Age/Sex: 84/M : 1940 Unit#: [id number] Attend Dr: Hal Monroy Re01/06/25 Status : DIS IN Location: [facility] 473-1 Disch: 01/10/25 ----- SPEC : [id number] RECD : 01/09/25 STATUS: STANISLAW CARDOZO NUM: [id number] DEISY: 01/09/25 [facility] DR: Leo Guo MD ENTERED: 01/09/25 36 SP TYPE: Surgical OTHR DR: Vini Mendoza MD, Jaehyun MD ORDERED: HE Stain/6, Gross Micro L4/2, IHC, Special st. 2/2, H. pylori, AB/PAS/2 IHC S/NG Disclaimer NOTE: Unless otherwi se stated, all tissue is formalin-fixed and paraffin-embedded. Some or all of the immunohistochemical tests reported herein may have been developed and their performance characteristics determined by [facility]. They have not been cleared or appr viry by the U.S. Food and Drug Administration (FDA). However, the FDA has determined that such clearance or approval is not necessary. This laboratory is certified under the Clinical Laboratory Improvement Amendments of 1988 (CLIA) as qualified to perform high complexity clinical laboratory testing. Copies To: Vini Mendoza MD [facility] [address] [place], [place] [id number] Krishna Lemon MD [address] [place] [address] Leo Guo MD [facility] [address] [place] [address] ----- Signed (signature on file) Naty Younger MD 01/11/25 0823 ----- END OF REPORT Hold Green Gel Reviewed date:01/09/2025 11:57:28 AM Interpretation: Performing Lab:[facility], [address] [place] [address] Notes/Report: Hold Green Gel See Note Specimen held untested for 24 hours; Call to request Chemistry testing. Glucose, Whole Blood Reviewed date:01/09/2025 05:49:26 PM Interpretation: Performing Lab:[facility], [address] [place] [address] Notes/Report: Glucose, Whole Blood 98 60-115 mg/dL METER # : [id number] Glucose, Whole Blood Reviewed date:01/09/2025 05:50:11 PM Interpretation: Performing Lab:[facility], [address] [place] [address] Notes/Report: Glucose, Whole Blood 122 60-115 mg/dL METER # : [id number] Glucose, Whole Blood Reviewed date:01/10/2025 06:01:42 PM Interpretation: Performing Lab:[facility], [address] [place] [address] Notes/Report: Glucose, Whole Blood 139 60-115 mg/dL METER # : [id number] Complete Blood Count Auto Di ff Reviewed date:01/10/2025 06:02:14 PM Interpretation: Performing Lab:[facility], [address] [place] [address] Notes/Report: White Blood Count 4.9 4.8-10.8 X10*3/uL [...] g Reviewed date:01/10/2025 06:02:14 PM Interpretation: Performing Lab:[facility], [address] [place] [address] Notes/Report: Sodium 145 135-145 mmol/L Potassium 3.8 [...] Blood Reviewed date:01/10/2025 06:02:14 PM Interpretation: Performing Lab:[facility], [address] [place] [address] Notes/Report: Glucose, Whole Blood 97 60-115 mg/dL METER # : [id number] Pathology Reviewed date:01/11/2025 02:12:24 PM Interpretation: Performing Lab:[facility], [address] [place] [address] Notes/Report: ----- Name: Nury Romo Age/Sex: 84/M : 1940 Unit#: [id number] Attend Dr: Hal Monroy Re01/06/25 Status : DIS IN Location: [facility] 473-1 Disch: 01/10/25 ----- SPEC : [id number] RECD : 01/10/25-1594 STATUS: STANISLAW CARDOZO NUM: [id number] DEISY: 01/10/25-1237 [facility] DR: Cedrick Butt MD ENTERED: 01/10/25-13 13 [...] developed and their performance characteristics determined by [facility]. They have not been cleared or appr viry by the U.S. Food and Drug Administration (FDA). However, the FDA has determined that such clearance or approval is not necessary. This laboratory is certified under the Clinical Laboratory Improvement Amendments of 1988 (CLIA) as qualified to perform high complexity clinical laboratory testing. Copies To: Hal Monroy [address] [place] [id number] [email or web address] CONTINUED ON NEXT PAGE ----- Name: Nury Romo Age/Sex: 84/M : 1940 Unit#: [id number] Attend Dr: Hal Monroy Re01/06/25 Status : DIS IN Location: [facility] 473-1 Disch: 01/10/25 ----- SPEC : [id number] RECD : 01/10/25 STATUS: STANISLAW CARDOZO NUM: [id number] DEISY: 01/10/25-[address]: Cedrick Butt MD ENTERED: 01/10/25 13 SP TYPE: Surgical OTHR DR: Hal Monroy Glen P MD ORDERED: HE Stain/3, Gross Micro L4 Copies To: (Continued) Vini eMndoza MD [facility] [address] [place] [address] Cedrick Butt MD [facility] [address] [place] [address] ----- Signed (signature on file) Nichole Durant 01/11/251300 ----- END OF REPORT Glucose, Whole Blood Reviewed date:01/10/2025 03:32:59 PM Interpretation: Performing Lab:[facility], [address] [place] [address] Notes/Report: Glucose, Whole Blood 95 60-115 mg/dL METER # : [id number] Reason For Referral Reason Iron deficiency anem [...] Referring Provider Last Name Kelly [facility] Referred Provider Elliot Hogue Referred [...] Referring Provider Last Name Kelly Referring [facility] Referred Provider Cedrick Butt Referred [...] 02/11/2015 Administered pt herrera d vaccine at [facility] on [facility] in [place] Fluarix Quadrivalent IM Intramuscular 02/11/2016 Administered Shingles Unknown 03/29/2009 Administered Fluarix Quadrivalent IM Intramuscular 02/23/2017 Administered Shingrix IM Intramuscular 02/08/2018 Administered pt wa given the vaccine at [facility] on [facility]. Flu Vaccine Unknown 02/08/2018 Administered pt was give n the vaccine at [facility] on [facility]. Shingrix IM Intramuscular 05/17/2018 Administered pt was given the vaccine at [facility] in [place]. PPSV23 (Pnemovax) IM Intramuscular 09/10/2018 Administered Fluarix [...] Problem Status W/U Status Risk Notes Problem 23397380 Prostatism (N40.0) Active confirmed Problem 871001417 Asthmatic bronch itis (J45.909) Active confirmed Problem Unstable angina (2979849) Unstable angina (I20.0) Active confirmed Problem 08325237 Essential hypert ension (I10) Active confirmed Problem 74781826 Type 2 diabetes mellitus without complication (E11.9) Active confirmed Problem 294344605 Low HDL (under 4 0) (E78.6) Active confirmed Problem Biochemically recurrent prostate cancer (disorder) (87738124727435 1) Rising PSA level (R97.2) Active confirmed Problem Irregular heart beat (247984316) Irregular heart beat (I49.9) Active confirmed Problem Iron deficiency anemia (36403296) Iron deficiency anemia (D50.9) Active confirmed Problem 22984277 Sleep apnea, unspecified type (G47.30) Active confirmed Problem 785834924 Pure hypercholesterolemia (E78.00) Active confirmed Problem 11828905 Seasonal allergi c rhinitis due to pollen (J30.1) Active confirmed Problem 450277495 Adenomatous poly p of colon, unspecified part of colon (D12.6) Active confirmed Problem 698882825 BMI 32.0-32.9,ad ult (Z68.32) Active confirmed Problem 04442415 Bilateral hearin g loss, unspecified hearing loss type (H91.93) Active confirmed Vital Signs Blood pressure diastolic 64 mm Hg 02/02/2025 Height 70 in 02/02/2025 Blood pressure systolic 128 mm Hg 02/02/2025 Weight 183 lbs 02/02/2025 BMI 26.25 kg/m2 02/02/2025 Encounters Encounter Location Date Provider Diagnosis Vini Mendoza MD [address] [place] [address] [id number] 06/24/2024 Vini Mendoza Blood tests for rout ine general physical examination Z00.00 ; Essential hypertension I10 ; Type 2 diabetes mellitus without complication E11.9 ; Pure hypercholesterolemia E78.00 and Prostatism N40.0 Vini Mendoza MD [address] [facility] [address] [place] [address] [id number] 10/14/2024 Vini Mendoza Iron deficiency E61. 1 Vini Mendoza MD [address] [facility] [address] [address] [place] [address] [id number] 01/02/2025 Vini Mendoza Rectal bleed K62.5 Vini Mendoza MD [address] [place] [address] [id number] 01/05/2025 Vini Mendoza Anemia D64.9 Vini Mendoza MD [address] [place] [address] [id number] 01/23/2025 Vini Mendoza Anemia D64.9 Vini Mendoza MD [address] [place] [address] [id number] 02/21/2025 Vini Mendoza Iron deficiency anem ia D50.9 and Elevated liver function tests R79.89 Vini Mendoza MD [address] [place] [address] [id number] 02/22/2024 Vini Mendoza Type 2 diabetes arabella itus without complication E11.9 and Encounter for immunization Z23 Vini Mendoza MD [address] [place] [address] [id number] 04/15/2024 Vini Mendoza Type 2 diabetes arabella itus without complication E11.9 and Newly recognized murmur R01.1 Vini Mendoza MD [address] [place] [address] [id number] 06/10/2024 Vini Mendoza Viral URI J06.9 Vini Mendoza MD [address] [place] [address] [id number] 07/01/2024 Vini Mendoza Mild anemia D64.9 ; Annual physical exam Z00.00 ; Type 2 diabetes mellitus without complication E11.9 ; Pure hypercholesterolemia E78.00 ; Prostatism N40.0 ; Colon cancer screening Z12.11 and Depression screening Z13.31 Vini Mendoza MD [address] [place] [address] [id number] 07/08/2024 Vini Mendoza Iron deficiency E61. 1 Vini Mendoza MD [address] [place] [address] [id number] 10/21/2024 Vini Mendoza Type 2 diabetes arabella itus without complication E11.9 ; Iron deficiency anemia D50.9 and Chest pain R07.9 Vini Mendoza MD [address] [place] [address] [id number] 11/18/2024 Vini Mendoza Type 2 diabetes arabella itus without complication E11.9 and Chest pain R07.9 Vini Mendoza MD [address] [place] [address] [id number] 12/05/2024 Vini Mendoza Unstable angina I20. 0 Vini Mendoza MD [address] [place] [address] [id number] 12/29/2024 Vini Mendoza Elevated LFTs R79.89 ; Rectal bleeding K62.5 ; History of atrial fibrillation Z86.79 and Elevated liver enzymes R74.8 Vini Mendoza MD [address] [place] [address] [id number] 02/02/2025 Vini Mendoza Anemia D64.9 ; Weakn ess R53.1 and Encounter for administration of vaccine Z23 Vini Mendoza MD [address] [place] [address] [id number] 05/17/2024 Vini Mendoza MD [address] [place] [address] [id number] 07/03/2024 Vini Mendoza MD [address] [place] [address] [id number] 07/08/2024 Vini Mendoza MD [address] [place] [address] [id number] 07/19/2024 Vini Mendoza Colon cancer screeni ng Z12.11 Vini Mendoza MD [address] [place] [address] [id number] 07/19/2024 Vini Mendoza MD [address] [place] [address] [id number] 12/19/2024 Vini Mendoza MD [address] [place] [address] [id number] 12/30/2024 Vini Mendoza Elevated LFTs R79.89 and Rectal bleeding K62.5 Vini Mendoza MD [address] [place] [address] [id number] 12/30/2024 Vini Mendoza MD [address] [place] [address] [id number] 01/12/2025 Vini Mendoza MD [address] [place] [address] [id number] 01/12/2025 Vini Mendoza Pure hypercholestero lemia E78.00 Vini Mendoza MD [address] [place] [address] [id number] 01/16/2025 Vini Mendoza MD [address] [place] [address] [id number] 02/03/2025 Vini Mendoza MD [address] [place] [address] [id number] 02/21/2025 Vini Mendoza Assessments Encounter Date Diagnosis (ICD Code) Assessment Notes Treatment Notes Treatment Clinical Notes Section Notes 06/24/20[address] tests for [address] ine general physical examination (ICD-10 - Z00.00) 06/24/2024 Essential hypertensi on (ICD-10 - I10) 10/14/2024 Iron deficiency (ICD -10 - E61.1) 01/02/2025 Rectal bleed (ICD-10 - K62.5) 01/05/2025 Anemia (ICD-10 - D64.9) 01/23/2025 Anemia (ICD-10 - D64.9) pend ing labs Total time spent on the date of the encounter is 25 minutes including both face to face time spent and time spent reviewing documentation, pertinent lab data, studies and counseling the patient. 02/21/2025 Iron deficiency anem ia (ICD-10 - D50.9) 02/22/2024 Type 2 diabetes mellitus without complication (ICD-10 - E11.9) patient verbalized nderstanding of medication and directions for use 02/22/2024 Encounter for immunization (ICD-10 - Z23) flu vaccine administered 04/15/2024 Type 2 diabetes mellitus without complication (ICD-10 - E11.9) patient verbalized understanding of medication and directions for use 04/15/2024 Newly recognized mur mur (ICD-10 - R01.1) pending diagnostic testing, order faxed to [facility] CS dept 06/10/2024 Viral URI (ICD-10 - [...] and to try nitro/ order faxed to [facility] CS dept 12/05/2024 Unstable angina (ICD -10 - I20.0) will send by ambulance down to [facility] Total time spent on the [...] and apixaban and start a baby asa 02/02/2025 Anemia (ICD-10 - D64.9) no l onger seeing any rectal bleeding feeling somewnat better 02/02/2025 Weakness (ICD-10 - R53.1) am conserned with the ongoing elevation of his liver tests. may be related to the high dose ststins. will hold off on those and repeat in 2 weaks and see if they diminish 07/19/2024 Colon cancer screeni ng (ICD-10 - Z12.11) 12/30/2024 Elevated LFTs (ICD-1 0 - R79.89) 01/12/2025 Pure hypercholesterolemia (ICD-10 - E78.00) 06/24/2024 Type 2 diabetes mellitus without complication (ICD-10 - E11.9) 02/21/2025 Elevated liver funct ion tests (ICD-10 - R79.89) 07/01/2024 Type 2 diabetes mellitus without complication [...] the risk of the aafib is low 02/02/2025 Encounter for administration of vaccine (ICD-10 - Z23) HD flu vaccine administered 12/30/2024 Rectal bleeding (ICD -10 - K62.5) [...] ABD 12/29/2024 Stress Test 11/18/2024 ECHO 04/15/2024 Comprehensive [place]. Panel Fast US abdomen limited 06/05/2022 Future Test Test Name Order Date US abdomen limited 01/04/2023 Next Appt Details Provider Name:Vini herzog, 02/23/2025 09:15:00 AM, [address], [address], [place], [phone], Provider Name:Vini Moscoso ier, 06/29/2025 07:45:00 AM, [address] [facility] [address] [address], [address], [place], [phone], Provider Name:Vini Moscoso ier, 07/06/2025 09:30:00 AM, [address] [facility] [address], [address], [place], [place], [phone], Insurance Providers Payer Name Payer Address Payer Phone Subscriber Number Group Number Insured Name Patient Relationship to Insured Coverage Start Date Coverage End Date [employer] [address] [place], [place] [id number] Deacon Romo Self - patient is the insured [facility] [address] [place] [address] [phone] [id number] Deacon Romo Self - patient is the insured [employer] [address] [place] [address] [id number] Deacon Romo Self - patient is the insured Medical (General) History Medical History History ICD Code colonoscopy 07/2014 repeat in 3 years; colonoscopy 01/02/16 w/ Dr. Butt; colonoscopy done 02/11/[address] Butt, no futher testing needed.01/26/24 Colonoscopy, pending biopsy01/10/25 colonoscopy pending path
== END 2025-02-21 10:58 | disposition home or self-care (01) ==
LOC: HO.LNP 10:57
PROVIDERS: Visit Provider Internal Medicine
DX: D50.9 Iron deficiency anemia, unspecified (principal); R79.89 Other specified abnormal findings of blood chemistry
CPT/HCPCS: 80076; 85025

== ENCOUNTER 2025-03-02 10:54 | Outpatient (REF) | payer MEDICARE, OTHER, SELFPAY ==
--- OUTSIDE RECORDS SUMMARY | 2024-01-26 06:00 | XMS_ITS ---
Author Organization [facility] Address [address] [place] [address] [place] [address] Care Team Providers Care Ecommerce Marketing Manager Name Role Phone Vini Mendoza MD Primary Care Provider Jennifer Justin Jr, Cedrick Unavailable [phone] REASON FOR VISIT screening Encounters Encounter Location Date Provider Diagnosis [facility] [address] [place] [phone] 01/26/2024 Cedrick Justin Jr Colon cancer screening [...] Provider Name:Cedrick licona Jr, 03/27/2025 02:15:00 PM, [address] [place] [address], [address], [place], [address], Progress Notes * TOMEKA OLIVIERDOB:[birth year] (84 yo M)Acc No.[id number]:01/26/2024 COLON WITH MAC Patient: TOMEKA IRVIN Provider: Jerica Justin MD :1940 A ge:83 Y S ex:Male Date:01/26/2024 Address:[address] [place] [address] [facility] Pcp:Vini Mendoza MD Subjective: * Chief Complaints: * 1 . Screening. * Medical History: Objective: * Vitals: Assessment: * Assessment: 1. C olon cancer screening - Z12.11 (Primary) 2 . F amily history of colon cancer - Z80.0 3 . C olon polyps - K63.5 Plan: * Treatment: * Procedure Codes: 4 5385 LESION REMOVAL COLONOSCOPY, 92481 LESION REMOVE COLONOSCOPY, Modifiers: 59 , 04103 COLONOSCOPY AND BIOPSY, Modifiers: 59 , 0529F INTRVL 3+YRS PTS CLNSCP DOCD * * The named appointment provid er may or may not be the originator of this progress note, and it is not deemed complete until electronically signed by the appointment provider. Sign off status: Pending * Provider: Jerica Justin MD Date: 0 01/26/2024 Generated for Meg brenner/Min/Jordenitting on: 1 12:48 PM EDT
--- OUTSIDE RECORDS SUMMARY | 2025-01-09 07:20 | XMS_ITS ---
Author Organization [facility] Address [address] [place] [phone] Care Team Providers Care Ivf Embryologist Name Role Phone Vini Mendoza MD Primary Care Provider Jennifer Justin Jr, Cedrick Unavailable REASON FOR VISIT Patient presents today for a gi bleed Encounters Encounter Location Date Provider Diagnosis [facility] [address] [facility] [address] [place] [phone] 01/09/2025 Cedrick Justin Jr Plan Of Treatment Next Appt Details Provider Name:Cedrick licona Jr, 03/27/2025 02:15:00 PM, [address] [facility], [address], [place], [address], Progress Notes * TOMEKA OLIVIERDOB:[birth year] (84 yo M)Acc No.[id number]:01/09/2025 Progress Notes Patient: TOMEKA IRVIN Provider: Jerica Justin MD :1940 A ge:84 Y S ex:Male Date:01/09/2025 Address:[address] [place] [address] [facility] Pcp:Vini Mendoza MD Subjective: * Chief Complaints: [...] 01/09/2025 Generated for Meg brenner/Min/Derick on: 1 12:49 PM EDT
--- OUTSIDE RECORDS SUMMARY | 2025-01-10 09:00 | XMS_ITS ---
Author Organization [facility] Address [address] [place] [address] Care Team Providers Care Manager Stars Name Role Phone Vini Mendoza MD Primary Care Provider Jennifer Justin Jr, Cedrick Blank REASON FOR VISIT anemia Medications Medication SIG (Take, Route, Frequency, Duration) Notes Start Date End Date Status Metoprolol Succinate ER 50 MG 1 tablet Orally Once a day Active Aspir-Low 81 MG 1 tablet Orally Once a day for 30 day(s) Active Flonase 50 MCG/ACT 1 spray in each nost ril Nasally PRN Active Atorvastatin Calcium 20mg 1/2 tablet Ora lly Once a day Active Valsartan-hydroCHLOROthiazi de 320-12.5 MG 1/2 tablet Orally Once a day Active Singulair 10 MG 1 tablet Orally Once a day Active metFORMIN HCl 500 MG 2 TABLETS Orally Tw ice a day Active Encounters Encounter Location Date Provider Diagnosis [facility] [address] [place], [place] [phone] 01/10/2025 Cedrick Justin Jr Plan Of Treatment Next Appt Details Provider Name:Cedrick licona Jr, 03/27/2025 02:15:00 PM, [address], [address], [place], [address], Progress Notes * TOMEKA OLIVIERDOB:[birth year] (84 yo M)Acc No.[id number]:01/10/2025 COLON WITH MAC Patient: TOMEKA IRVIN Provider: Jerica Justin MD :1940 A ge:84 Y S ex:Male Date:01/10/2025 Address:[address] [place] [address], [facility] [id number] Pcp:Vini Mendoza MD Subjective: * Chief Complaints: * 1 . Anemia. * Medical History: * Medications: T aking Valsartan-hydroCHLOROthiazide 320-12.5 MG Tablet 1/2 tablet Orally Once a day , Taking Atorvastatin Calcium 20mg Tablet 1/2 tablet Orally Once a day , Taking metFORMIN HCl 500 MG Tablet 2 TABLETS Orally Twice a day , Taking Singulair 10 MG Tablet 1 tablet Orally Once a day , Taking Metoprolol Succinate ER 50 MG Tablet Extended Release 24 Hour 1 tablet Orally Once a day , Taking Flonase 50 MCG/ACT Suspension 1 spray in each nostril Nasally PRN , Taking Aspir-Low 81 MG Tablet Delayed Release 1 tablet Orally Once a day Objective: * Vitals: Assessment: Plan: * Treatment: * * The named appointment provid er may or may not be the originator of this progress note, and it is not deemed complete until electronically signed by the appointment provider. Sign off status: Pending * Provider: Jerica Justin MD Date: 0 01/10/2025 Generated for Meg brenner/Min/Jordenitting on: 1 12:50 PM EDT
--- OUTSIDE RECORDS SUMMARY | 2025-01-25 05:20 | XMS_ITS ---
Author Organization [facility] Address [address] [place] [address] Care Team Providers Care Feed Crusher Name Role Phone Vini Mendoza MD Primary Care Provider Jennifer Justin Jr, Cedrick Blank REASON FOR VISIT fam hx colon ca, anemia Encounters Encounter Location Date Provider Diagnosis [facility] [address] [facility] [address] [place] [phone] 01/25/2025 Cedrick Justin Jr Plan Of Treatment Next Appt Details Provider Name:Cedrick licoan Jr, 03/27/2025 02:15:00 PM, [address], [address], [place], [address], Progress Notes * TOMEKA OLIVIERDOB:[birth year] (84 yo M)Acc No.[id number]:01/25/2025 Progress Notes Patient: TOMEKA IRVIN Provider: Jerica Justin MD :1940 A ge:84 Y S ex:Male Date:01/25/2025 Address:[address] [place], [place] [phone] Pcp:Vini Mendoza MD Subjective: * Chief Complaints: [...] 01/25/2025 Generated for Meg brenner/Min/Derick on: 1 12:49 PM EDT
--- OUTSIDE RECORDS SUMMARY | 2025-02-21 04:15 | XMS_ITS ---
Author Organization Vini Mendoza MD Address [address] [place] [phone] Care Team Providers Care Fabrication Specialist Name Role Phone Vini Mendoza Primary Care Provider [phone] Results Component Value Reference Range Notes Complete Blood Count Auto Di ff Reviewed date:02/21/2025 11:59:09 AM Interpretation: Performing Lab:[facility], [address] [place] [phone] Notes/Report: White Blood Count 6.3 4.8-10.8 X10*3/uL [...] Panel Reviewed date:02/21/2025 12:42:16 PM Interpretation: Performing Lab:[facility], [address] [place] [phone] Notes/Report: Bilirubin Total 0.8 0.0-1.0 mg/dL Bilirubin Direct 0.3 0.0-0.5 mg/dL Aspartate Amino Transferase 46 5-37 U/L Alanine Aminotransferase 47 0-40 U/L Total Protein 6.2 6.5-8.0 g/dL Albumin Level 3.6 3.5-5.0 g/dL Alkaline Phosphatase 102 39-117 U/L REASON FOR VISIT liver and CBC Encounters Encounter Location Date Provider Diagnosis Vini Mendoza MD [address] [place] [address] Drive [address] [place], [place] [phone] 02/21/2025 Vini Mendoza Iron deficiency anemia D50.9 and Elevated liver function tests R79.89 Assessments Encounter Date Diagnosis (ICD Code) Assessment Notes Treatment Notes Treatment Clinical Notes Section Notes 02/21/2025 Iron deficiency anemia (ICD-10 - D50.9) 02/21/2025 Elevated liver function tests (ICD-10 - R79.89) Plan Of Treatment Next Appt Details Provider Name:Vini Moscoso ier, 03/06/2025 01:00:00 PM, [address] [place] [address], Suite [facility], [place], [phone], Provider Name:Vini Moscoso ier, 06/29/2025 07:45:00 AM, [address] [place] [address], Suite [facility], [place], [phone], Provider Name:Vini Moscoso ier, 07/06/2025 09:30:00 AM, [address] [place] [address], [place] [address], [place], [phone], Progress Notes * Deacon ROMODOB:[birth year] (84 yo M)Acc No.[id number]:02/21/2025 Progress Note Patient: Deacon IRVIN Provider: Galina Mendoza MD :1940 A ge:84 Y S ex:Male Date:02/21/2025 Address:[address] [place] [address] [place], [phone] Subjective: * Chief Complaints: * 1 . [...] MD Date: 0 02/21/2025 Generated for Meg brenner/Min/Derick on: 1 12:49 PM EDT
--- OUTSIDE RECORDS SUMMARY | 2025-02-23 05:15 | XMS_ITS ---
Author Organization Vini Mendoza MD Address [address] [place] [phone] Care Team Providers Care Foam Rubber Mixer Name Role Phone Vini Mendoza Primary Care [...] kg/m2 02/23/2025 weight is down 5 pounds [facility] [place] 9-4-25 Encounters Encounter Location Date Provider Diagnosis Vini Mendoza MD [address] [place] [address] [address] [place], [place] [phone] 02/23/2025 Vini Mendoza Type 2 diabetes arabella [...] Panel 03/02/2025 Next Appt Details Provider Name:Vini herozg, 03/06/2025 01:00:00 PM, [address] [place] [address], [address], [place], [place], [phone], Provider Name:Vini Moscoso ier, 06/29/2025 07:45:00 AM, [address], [address], [place], [phone], Provider Name:Vini Moscoso ier, 07/06/2025 09:30:00 AM, [address], [address], [place], [phone], Progress Notes * Deacon ROMODOB:[birth year] (84 yo M)Acc No.[id number]:02/23/2025 Progress Notes Patient: Deacon IRVIN Provider: Galina Mendoza MD :1940 A ge:84 Y S ex:Male Date:02/23/2025 Address:[address] [place] [address] [place], [phone] Subjective: * Chief Complaints: * 3 WK [...] 2211 Complex e/m visit add on * * Sign off status: Completed true * Provider: Galina Mendoza MD Date: 0 02/23/2025 Generated for Meg brenner/Min/Jordenitting on: 1 12:49 PM EDT History and Physical Notes * [...]
--- OUTSIDE RECORDS SUMMARY | 2025-02-24 05:19 | XMS_ITS ---
Author Organization Vini Mendoza MD Address [address] [place] [phone] Care Team Providers Care Servicing Rep Name Role Phone Vini Mendoza Primary Care Provider [phone] REASON FOR VISIT med issue Medications Medication SIG (Take, Route, Frequency, Duration) Notes Start Date End Date Status Metoprolol Succinate ER 25 MG 1 tablet Orally Once a day for 90 days Active Encounters Encounter Location Date Provider Diagnosis Vini Mendoza MD 10 [facility] [address] [place] [phone] 02/24/2025 Vini Mendoza Plan Of Treatment Medication Medication Name Sig Start Date Stop Date Notes Metoprolol Succinate ER 25 MG 1 tablet O rally Once a day for 90 days Next Appt Details Provider Name:Vini Moscoso ier, 03/06/2025 01:00:00 PM, [address] [place] [address], [address], [place], [phone], Provider Name:Vini Moscoso ier, 06/29/2025 07:45:00 AM, [address] [place] [address], Suite [facility], [place], [phone], Provider Name:Vini Moscoso ier, 07/06/2025 09:30:00 AM, [address] [place] [address], [address], [place], [phone], Progress Notes * Deacon ROMODOB:[birth year] (84 yo M)Acc No.[id number]:02/24/2025 Patient: Galina LAZARO Deacon :1940 A ge:84 Y S ex:Male Address:[address] [place] [address], [place] [address] * Refills Continue Metoprolol Succinate ER Tablet Extended Release 24 Hour, 25 MG, Orally, 90 Tablet, 1 tablet, Once a day, 90 days, Refills=3 * true * Date: Generated for Meg brenner/Min/Jordenitting on: 12:48 PM EDT
--- OUTSIDE RECORDS SUMMARY | 2025-02-24 10:27 | XMS_ITS ---
Author Organization Vini Mendoza MD Address [address] [place] [phone] Care Team Providers Care Verification Lead Name Role Phone Vini Mendoza Primary Care Provider Medications Medication SIG (Take, Route, Frequency, Duration) Notes Start Date End Date Status Metoprolol Succinate ER 25 MG 1 tablet Orally twice a day for 30 days Active Encounters Encounter Location Date Provider Diagnosis Vini Mendoza MD [address] [place] [phone] 02/24/2025 Vini Mendoza Plan Of Treatment Medication Medication Name Sig Start Date Stop Date Notes Metoprolol Succinate ER 25 MG 1 tablet O rally twice a day for 30 days Next Appt Details Provider Name:Vini Moscoso chilor, 03/06/2025 01:00:00 PM, [address], [address], [place], [phone], Provider Name:Vini Moscoso chilokristan, 06/29/2025 07:45:00 AM, [address], [address], [place], [phone], Provider Name:Vini Moscoso chilor, 07/06/2025 09:30:00 AM, [address], [address], [place], [phone], Progress Notes * Deacon ROMODOB:[birth year] (84 yo M)Acc No.[id number]:02/24/2025 Patient: Deacon IRVIN :1940 A ge:84 Y S ex:Male Address:[address] [place] [address], [place] [address] * Refills Continue Metoprolol Succinate ER Tablet Extended Release 24 Hour, 25 MG, Orally, 60 Tablet, 1 tablet, twice a day, 30 days, Refills=5 * true * Date: Generated for Meg brenner/Min/Jordenitting on: 12:49 PM EDT
--- OUTSIDE RECORDS SUMMARY | 2025-03-02 03:45 | XMS_ITS ---
Author Organization Vini Mendoza MD Address [address] [place] [phone] Care Team Providers Care Substation Operator Helper Generation Name Role Phone Vini Mendoza Primary Care Provider Results Component Value Reference Range Notes Liver Panel Reviewed date:03/02/2025 12:33:15 PM Interpretation: Performing Lab:[facility], [address] [place] [phone] Notes/Report: Bilirubin Total 1.0 0.0-1.0 mg/dL Bilirubin Direct 0.3 0.0-0.5 mg/dL Aspartate Amino Transferase 41 5-37 U/L Alanine Aminotransferase 30 0-40 U/L Total Protein 6.2 6.5-8.0 g/dL Albumin Level 3.9 3.5-5.0 g/dL Alkaline Phosphatase 100 39-117 U/L Hepatitis A,B,C Profile Reviewed date:03/02/2025 12:33:25 PM Interpretation: Performing Lab:[facility], [address] [place] [phone] Notes/Report: Hepatitis A Antibody IgM Nonreactive Nonreactive [...] Location Date Provider Diagnosis Vini Mendoza MD [address] [place] [phone] 03/02/2025 Vini Mendoza Elevated liver function tests R79.89 Assessments Encounter Date Diagnosis (ICD Code) Assessment Notes Treatment Notes Treatment Clinical Notes Section Notes 03/02/2025 Elevated liver function tests (ICD-10 - R79.89) Plan Of Treatment Next Appt Details Provider Name:Vini herzog, 03/06/2025 01:00:00 PM, [address] [place] [address], [address], [phone], Provider Name:Vini herzog, 06/29/2025 07:45:00 AM, [address] [place] [address], [address], [phone], Provider Name:Vini herzog, 07/06/2025 09:30:00 AM, [address] [place] [address], [phone], Progress Notes * Deacon ROMODOB:[birth year] (84 yo M)Acc No.[id number]:03/02/2025 Progress Note Patient: Deacon IRVIN Provider: Galina Mendoza MD :1940 A ge:84 Y S ex:Male Date:03/02/2025 Address:[address] [place], [place] [address], [phone] Subjective: * Chief Complaints: * 1 . liver panel, Hep ABC profile. * Medical History: Objective: * Vitals: Assessment: * Assessment: 1. E levated liver function tests - R79.89 Plan: * Treatment: * Procedure Codes: 3 6415 VENIPUNCT, ROUTINE* * * The named appointment provid er may or may not be the originator of this progress note, and it is not deemed complete until electronically signed by the appointment provider. Sign off status: Pending * Provider: Galina Mendoza MD Date: Generated for Meg brenner/Min/Jordenitting on: 12:50 PM EDT
[2025-03-02 11:31] LABS: Alanine Aminotransferase 30 U/L (0-40); Albumin Level 3.9 g/dL (3.5-5.0); Alkaline Phosphatase 100 U/L (39-117); Aspartate Amino Transferase 41 U/L (5-37); Total Protein 6.2 g/dL (6.5-8.0)
[2025-03-02 12:00] LABS: HBS Num1 0.22 mIU/mL (0-7.99); HBc Num1 0.09 S/CO (0.00-0.79); HBsAGNum1 0.35 S/CO (0.00-0.99); Hepatitis A Antibody IgM 0.29 Index (0-0.79); Hepatitis B Surface Antigen Negative (Negative); ~HepC Num1 0.08 S/CO (0.00-0.79); ~Hepatitis A Antibody IgM Nonreactive (Nonreactive); ~Hepatitis B Surface Antibody NONREACTIVE (Nonreactive); ~Hepatitis C Antibody Nonreactive (Nonreactive)
--- OUTSIDE RECORDS SUMMARY | 2025-03-02 12:50 | XMS_ITS | Clinical Summary ---
Author Organization [facility] Address [address] [facility] [address] [place] [address] Phone Care Team Providers Care Carcass Trimmer Name Role Phone Pcp, Unknown Primary Care Provider Unavailabl e Encounters Date Type Department Care Team Description 12/21/2024 Orders Only [facility] [address] [facility] [address], [address] [place] [address] ProviderLupe MD from Last 3 Months Social [...] Final Result from Last 3 Months Insurance [facility] MEDICARE REPLACEMENT [facility] MEDICARE SUPPLEMENT [facility] MEDICARE REPLACEMENT FOR LIFE MEDICARE SUPPLEMENT [facility] Address: [address] [address] [facility] MEDICARE REPLACEMENT FOR LIFE MEDICARE SUPPLEMENT [facility] MEDICARE REPLACEMENT FOR LIFE MEDICARE SUPPLEMENT [facility] Address: [address] [address] [facility] REPL[facility] FOR LIFE MEDICARE SUPPLEMENT [facility] MEDICARE REPLACEMENT FOR LIFE MEDICARE SUPPLEMENT [facility] Address: [facility] [address] [place] [address] Care Teams Carcass Trimmer Relationship Specialty Start Date End Date Pcp, Unknown PCP - General 12/21/24 Additional Source Comments The information contained in this document represents components of the legal health record. It is not the complete legal health record.[facility]
--- OUTSIDE RECORDS SUMMARY | 2025-03-02 12:50 | XMS_ITS | Patient Health Record ---
Author Organization [facility] Address [address] [place] [address] Care Team Providers Care [employer] Name Role Phone Vini Mendoza MD Primary Care Provider Cedrick Becerra Jr Unavailable Allergies Allergen (clinical drug ingredient) Drug/Non Drug Allergy documented on EMR Reaction Allergy Type Onset Date Status seasonal (uncoded) Unknown Allergy A ctive Results Component Value Reference Range Notes US abdomen comp w elastograp hy Reviewed date:01/10/2025 12:58:18 PM Interpretation: Performing Lab: Notes/Report: [address] [address] Ultrasound Report Signed Patient: Deacon Romo MR#: [id number] : 1940 Acct:[id number] Age/Sex: 84 / M ADM Date: 01/06/25 Loc: [facility] [id number]: Krishna Lemon MD Ordering Physician: Leo Guo MD Date of Service: 01/07/25 Procedure(s): US abdomen comp w elastography Accession Number(s): [id number] cc: Vini Mendoza MD; Leo Guo MD EXAMINATION: US COMPLETE ABDOMEN WITH LIVER ELASTOGRAPHY CLINICAL INFORMATION: Elevated LFTs COMPARISON: Ultrasound abdomen 01/02/2023 TECHNIQUE: Real-time imaging of the abdominal viscera. Noninvasive ultrasound liver fibrosis assessment is performed using Snapt ElastPQ point quantification shear wave elastography (pSWE) [...] in OV> 01/09/25712 DD/ 9 TD/TT: 01/07/25829 Can Machine Operator: LISA Complete Blood Count Auto Di ff Reviewed date:01/10/2025 12:57:13 PM Interpretation: Performing Lab:[facility], [address] [place] [phone] Notes/Report: White Blood Count 6.1 4.8-10.8 X10*3/uL [...] Pathology Reviewed date:01/15/2025 10:51:17 PM Interpretation: Performing Lab:[facility], [address] [place] [phone] Notes/Report: Complete Blood Count Auto Di ff Reviewed date:01/10/2025 12:56:35 PM Interpretation: Performing Lab:[facility], [address] [place] [phone] Notes/Report: White Blood Count 4.9 4.8-10.8 X10*3/uL [...] g Reviewed date:01/10/2025 12:56:52 PM Interpretation: Performing Lab:[address] [phone] Notes/Report: Sodium 145 135-145 mmol/L Potassium 3.8 [...] Pathology Reviewed date:01/12/2025 12:57:41 PM Interpretation: Performing Lab:[address] [phone] Notes/Report: Reason For Referral No Information Medications [...] Problem Status W/U Status Risk Notes Problem [id number] Colon cancer screening (Z12.11) Active confirmed Problem 765968528 Personal history of colonic polyps (Z86.010) Active confirmed Problem Anemia (678647450) Anemia (D64.9) Active confirmed Problem 918932838 Long-term use of aspirin therapy (Z79.82) Active confirmed Problem Chronic gastritis (5535038) Chronic gastritis (K29.50) Active confirmed Problem 048292827 Long-term curren t use of high risk medication other than anticoagulant (Z79.899) Active confirmed Problem 236713987 FH: colon cancer (Z80.0) Active confirmed Problem 83824902 Hypertension, unspecified type (I10) Active confirmed Problem Anemia (480459368) Acute anemia (D64.9) Active confirmed Vital Signs Temperature 97.8 degrees Fahrenheit 11/09/2024 Blood pressure diastolic 01 mm Hg 11/09/2024 Height 69.5 in 11/09/2024 Blood pressure systolic 001 mm Hg 11/09/2024 Weight 193 lbs 11/09/2024 BMI 28.09 kg/m2 11/09/2024 Encounters Encounter Location Date Provider Diagnosis [facility] Inpatient [address] [place], [place] [phone] 01/10/2025 Cedrick Justin Jr [facility] [address] [place] [phone] 11/09/2024 Cedrick Justin Jr Colon polyps K63.5 ; Anemia D64.9 and Colon cancer screening Z12.11 [facility] [address] [place] [phone] 01/03/2025 Cedrick Justin Jr [facility] [address] [place] [address] 01/08/2025 Cedrickmaikel Justin Jr [facility] [address] [place] [address] 01/12/2025 Cedrick Justin Jr Assessments Encounter Date [...] Name:Cedrick licona Jr, 03/27/2025 02:15:00 PM, [address] [facility], [address], [place], [phone], Insurance Providers Payer Name Payer Address Payer Phone Subscriber Number Group Number Insured Name Patient Relationship to Insured Coverage Start Date Coverage End Date [facility] [address] [place], [place] [phone] [id number] DEACON ROMO Self - patient is the insured [employer] [address] [place] [address] [phone] [id number] DEACON ROMO Self - patient is the [...]
--- OUTSIDE RECORDS SUMMARY | 2025-03-02 12:51 | XMS_ITS | Patient Health Record ---
Author Organization Vini Mendoza MD Address [address] [place] [phone] Care Team Providers Care Food Science Professor Name Role Phone Vini Mendoza Primary Care Provider Allergies No Known Allergies Results Component Value Reference Range Notes Hemoglobin A1c Reviewed date:10/21/2024 09:43:33 AM Interpretation: Performing Lab: Notes/Report: Hemoglobin A1c 6.2 Complete Blood Count Auto Di ff Reviewed date:07/04/2024 07:18:28 AM Interpretation:see back 07-01-24 Performing Lab:[facility], [address] [place] [phone] Notes/Report: White Blood Count 7.9 4.8-10.8 X10*3/uL [...] NRBC Abs Auto 0.000 0.0-0.012 X10*3/uL Comprehensive [place]. Panel Fa st Reviewed date:06/26/2024 04:58:35 PM Interpretation: Performing Lab:[facility], [address] [place] [phone] Notes/Report: Sodium 141 135-145 mmol/L Potassium 4.8 [...] Panel Reviewed date:06/25/2024 12:29:18 PM Interpretation: Performing Lab:[address] [address] Notes/Report: Triglycerides 138 <150 mg/dL Desirable Triglyceride: [...] (Free>4and<10) Reviewed date:06/25/2024 12:29:08 PM Interpretation: Performing Lab:[address] [address] Notes/Report: PSA,Total (Free>4and<10) 0.67 0.00-4.00 ng/mL A [...] Random Reviewed date:06/25/2024 12:28:59 PM Interpretation: Performing Lab:[address] [address] Notes/Report: Creatinine Urine 225.05 Microalbumin Urine 44.0 Microalbum/Creatinine Ratio Ur 19.5 <30 ug/mg cr Albumin/Creatinine Ratio Reference Ranges: Normal: < 30 ug/mg creatinine Microalbuminuria: 30 - 300 ug/mg creatinine Clinical Albuminuria: > 300 ug/mg creatinine Hemoglobin A1c Reviewed date:06/24/2024 01:15:12 PM Interpretation: Performing Lab:[address] [address] Notes/Report: Hemoglobin A1c % 6.9 <6.0 % [...] average glucose, using the formula of the D4Y-Akfywhf Average Glucose study (ADAG), Diabetes Care, Vol.31,#8, 2007 UA ClnCatch+Micro w/rflx Cul t Reviewed date:06/26/2024 05:02:46 PM Interpretation: Performing Lab:[facility], [address] [place] [phone] Notes/Report: Urine, Clean Catch Color Urine Yellow Appearance Urine Clear PH 5.5 5.0-9.0 Glucose Urine UA Negative Negative mg/dL Urine Blood Negative Negative Specific [place] - Urine >= 1.030 1.005-1.025 Urine Protein [...] ff Reviewed date:10/14/2024 12:43:08 PM Interpretation: Performing Lab:[address] [address] Notes/Report: White Blood Count 7.0 4.8-10.8 X10*3/uL [...] X10*3/uL IRON PROFILE Reviewed date:10/21/2024 10:14:21 AM Interpretation:BENJAMIN 10/21 Performing Lab:[facility], [address] [place] [phone] Notes/Report: Iron 20 45-160 mcg/dL Total Iron Binding Capacity 364 228-428 mcg/dL Percent Iron Saturation 5 15-50 % Unsaturated Iron Binding 344 Complete Blood Count Auto Di ff Reviewed date:01/02/2025 01:14:08 PM Interpretation: Performing Lab:[facility], [address] [place] [phone] Notes/Report: White Blood Count 9.6 4.8-10.8 X10*3/uL [...] ff Reviewed date:01/05/2025 03:11:21 PM Interpretation: Performing Lab:[facility], [address] [place] [phone] Notes/Report: White Blood Count 10.7 4.8-10.8 X10*3/uL [...] ff Reviewed date:01/23/2025 12:30:04 PM Interpretation: Performing Lab:[facility], [address] [place] [phone] Notes/Report: White Blood Count 9.6 4.8-10.8 X10*3/uL [...] ff Reviewed date:02/21/2025 11:59:09 AM Interpretation: Performing Lab:[facility], [address] [place] [phone] Notes/Report: White Blood Count 6.3 4.8-10.8 X10*3/uL [...] Panel Reviewed date:02/21/2025 12:42:16 PM Interpretation: Performing Lab:[facility], [address] [place] [phone] Notes/Report: Bilirubin Total 0.8 0.0-1.0 mg/dL Bilirubin Direct 0.3 0.0-0.5 mg/dL Aspartate Amino Transferase 46 5-37 U/L Alanine Aminotransferase 47 0-40 U/L Total Protein 6.2 6.5-8.0 g/dL Albumin Level 3.6 3.5-5.0 g/dL Alkaline Phosphatase 102 39-117 U/L Liver Panel Reviewed date:03/02/2025 12:33:15 PM Interpretation: Performing Lab:[facility], [address] [place] [phone] Notes/Report: Bilirubin Total 1.0 0.0-1.0 mg/dL Bilirubin Direct 0.3 0.0-0.5 mg/dL Aspartate Amino Transferase 41 5-37 U/L Alanine Aminotransferase 30 0-40 U/L Total Protein 6.2 6.5-8.0 g/dL Albumin Level 3.9 3.5-5.0 g/dL Alkaline Phosphatase 100 39-117 U/L Hepatitis A,B,C Profile Reviewed date:03/02/2025 12:33:25 PM Interpretation: Performing Lab:[facility], [address] [place] [phone] Notes/Report: Hepatitis A Antibody IgM Nonreactive Nonreactive IgM antibodies to HAV not detected; does not exclude early acute or recovered HAV infection. Hepatitis B Surface Antibody NONREACTIVE Nonreactive Nonreactive: < 8.00 mIU/mL Hepatitis B Core Antibody Nonreactive Nonreactive Hepatitis C Antibody Nonreactive Nonreactive Antibodies to HCV not detected; does not exclude early acute HCV infection. Hepatitis B Surface Antigen Negative Negative Glucose, finger stick Reviewed date:04/15/2024 09:07:26 AM Interpretation: Performing Lab: Notes/Report: Value 125 Complete Blood Count Auto Di ff Reviewed date:07/01/2024 04:25:27 PM Interpretation: Performing Lab:[facility], [address] [place] [phone] Notes/Report: White Blood Count 10.5 4.8-10.8 X10*3/uL [...] PROFILE Reviewed date:07/03/2024 03:27:36 PM Interpretation: Performing Lab:[facility], [address] [place] [phone] Notes/Report: Iron 35 45-160 mcg/dL Total Iron Binding Capacity 346 228-428 mcg/dL Percent Iron Saturation 10 15-50 % Unsaturated Iron Binding 311 Glucose, finger stick Reviewed date:10/21/2024 09:36:02 AM Interpretation: Performing Lab: Notes/Report: Value 124 Glucose, finger stick Reviewed date:11/18/2024 09:14:41 AM Interpretation: Performing Lab: Notes/Report: Value 118 Complete Blood Count Auto Di ff Reviewed date:12/30/2024 01:50:51 PM Interpretation: Performing Lab:[facility], [address] [place] [phone] Notes/Report: White Blood Count 8.8 4.8-10.8 X10*3/uL [...] Panel Reviewed date:12/30/2024 08:57:33 AM Interpretation: Performing Lab:[address] [address] Notes/Report: Bilirubin Total 0.7 0.0-1.0 mg/dL Bilirubin Direct 0.3 0.0-0.5 mg/dL Aspartate Amino Transferase 157 5-37 U/L Alanine Aminotransferase 136 0-40 U/L Total Protein 5.7 6.5-8.0 g/dL Albumin Level 3.2 3.5-5.0 g/dL Alkaline Phosphatase 148 39-117 U/L Complete Blood Count Auto Di ff Reviewed date:02/02/2025 04:51:19 PM Interpretation: Performing Lab:[address] [address] Notes/Report: White Blood Count 6.9 4.8-10.8 X10*3/uL [...] NRBC Abs Auto 0.000 0.0-0.012 X10*3/uL Comprehensive [place]. Panel Fa st Reviewed date:02/23/2025 10:06:10 AM Interpretation:02-21-2025 Performing Lab:[facility], [address] [place] [phone] Notes/Report: Sodium 141 135-145 mmol/L Potassium 3.9 [...] 3.5-5.0 g/dL Alkaline Phosphatase 114 39-117 U/L Occult Blood, Stool, Guaiac Reviewed date:07/20/2024 08:37:52 AM Interpretation:Negative Performing Lab: Notes/Report: Negative Occult Blood, Stool, Guaiac NegX3 Complete Blood Count Auto Di ff Reviewed date:12/30/2024 11:59:39 AM Interpretation: Performing Lab:[facility], [address] [place] [phone] Notes/Report: White Blood Count 7.3 4.8-10.8 X10*3/uL [...] B12 Reviewed date:07/03/2024 03:27:05 PM Interpretation: Performing Lab:[facility], [address] [place] [phone] Notes/Report: Vitamin B12 245 200-900 pg/mL NORMAL 200-900 PG/ML INDETERMINATE 160-199 PG/ML DEFICIENT < 160 PG/ML Folate Reviewed date:07/03/2024 03:27:13 PM Interpretation: Performing Lab:[facility], [address] [place] [phone] Notes/Report: Folate 11.5 > or = 4.0 ng/mL Reference Values: > or = 4.0 ng/mL < 4.0 ng/mL suggests folate deficiency Methotrexate, aminopterin and folinic acid (leucovorin) are chemotherapeutic agents whose molecular structures are similar to folate; therefore, the Orange Peel Operator folate assay cannot be used for patients using these drugs. Complete Blood Count Auto Di ff Reviewed date:12/22/2024 12:43:17 PM Interpretation: Performing Lab:[facility], [address] [place] [phone] Notes/Report: White Blood Count 17.2 4.8-10.8 X10*3/uL [...] Panel Reviewed date:12/22/2024 01:05:46 PM Interpretation: Performing Lab:[facility], [address] [place] [phone] Notes/Report: Sodium 139 135-145 mmol/L Potassium 4.4 [...] Panel Reviewed date:12/29/2024 02:32:21 PM Interpretation: Performing Lab:[facility], [address] [place] [phone] Notes/Report: Sodium 141 135-145 mmol/L Potassium 5.2 [...] date:01/10/2025 03:43:11 PM Interpretation: Performing Lab: Notes/Report: [address] [address] Ultrasound Report Signed Patient: Deacon Romo MR#: [id number] 682 : 1940 Acct:[id number] Age/Sex: 84 / M ADM Date: 12/30/24 Loc: HO.US Attending Dr: Vini Mendoza MD Ordering Physician: Thomas Araujo MD Date of Service: 12/30/24 Procedure(s): US renal BI Accession Number(s): [id number] cc: Thomas Araujo MD; Vini Mendoza MD [...] 01:19 PM EDT RP Dictated By: Fabian Seals MD Signed By: <Electronically signed by Fabian Goddard MD in OV> 01/10/25 1319 DD/ 1253 TD/TT: 12/30/24 1301 Art Historian: [place] [address] Ultrasound Report Signed Patient: Ana María Romo MR#: [id number] 682 : 1940 Acct:[id number] Age/Sex: 84 / M ADM Date: 12/30/24 Loc: HO.US Attending Dr: Vini Mendoza MD Ordering Physician: Thomas Araujo MD Date of Service: 12/30/24 Procedure(s): US renal BI Accession Number(s): [id number] cc: Ramsey Araujo MD; Vini Mendoza MD [...] 01/10/25 1319 DD/ 1253 TD/TT: 12/30/24 1301 Art Historian: Complete Blood Count Auto Di ff Reviewed date:01/07/2025 04:59:35 PM Interpretation: Performing Lab:[facility], [address] [place] [phone] Notes/Report: White Blood Count 8.5 4.8-10.8 X10*3/uL [...] INR Reviewed date:01/06/2025 08:57:34 AM Interpretation: Performing Lab:[facility], [address] [place] [phone] Notes/Report: Prothrombin Time 14.1 10.9-12.4 [employer] [...] OBSX1 Reviewed date:01/06/2025 04:35:49 PM Interpretation: Performing Lab:[facility], [address] [place] [phone] Notes/Report: OBS1 POSITIVE NEGATIVE Liver Panel Reviewed date:01/06/2025 04:38:51 PM Interpretation: Performing Lab:[facility], [address] [place] [phone] Notes/Report: Bilirubin Total 1.3 0.0-1.0 mg/dL Bilirubin Direct 0.5 0.0-0.5 mg/dL Aspartate Amino Transferase 62 5-37 U/L Alanine Aminotransferase 133 0-40 U/L Total Protein 6.2 6.5-8.0 g/dL Albumin Level 3.7 3.5-5.0 g/dL Alkaline Phosphatase 190 39-117 U/L Basic Metabolic Panel Reviewed date:01/06/2025 04:51:22 PM Interpretation: Performing Lab:[address] [address] Notes/Report: Sodium 141 135-145 mmol/L Potassium 4.6 [...] Magnesium Reviewed date:01/06/2025 04:35:59 PM Interpretation: Performing Lab:[facility], [address] [place] [phone] Notes/Report: Magnesium 1.8 1.6-2.6 mg/dL Glucose, Whole Blood Reviewed date:01/06/2025 04:35:38 PM Interpretation: Performing Lab:[facility], [address] [place] [phone] Notes/Report: Glucose, Whole Blood 93 60-115 mg/dL METER # : [id number] Type and Screen Reviewed date:01/07/2025 04:52:18 PM Interpretation: Performing Lab:[facility], [address] [place] [phone] Notes/Report: Results at Issue Units as of [...] Cells Reviewed date:01/07/2025 04:52:26 PM Interpretation: Performing Lab:[facility], [address] [place] [phone] Notes/Report: Red Blood Cells [id number] [facility] Red Blood Cells TRANSFUSED 01/07/25 0807 Red Blood Cells [id number] [facility] Red Blood Cells TRANSFUSED 01/06/25 1118 Glucose, Whole Blood Reviewed date:01/07/2025 04:52:34 PM Interpretation: Performing Lab:[facility], [address] [place] [phone] Notes/Report: Glucose, Whole Blood 83 60-115 mg/dL METER # : [id number] Glucose, Whole Blood Reviewed date:01/07/2025 04:51:39 PM Interpretation: Performing Lab:[facility], [address] [place] [phone] Notes/Report: Glucose, Whole Blood 98 60-115 mg/dL METER # : [id number] Complete Blood Count no Diff Reviewed date:01/07/2025 04:54:34 PM Interpretation: Performing Lab:[facility], [address] [place] [phone] Notes/Report: White Blood Count 5.7 4.8-10.8 X10*3/uL [...] Panel Reviewed date:01/07/2025 04:52:10 PM Interpretation: Performing Lab:[address] [address] Notes/Report: Bilirubin Total 1.7 0.0-1.0 mg/dL Bilirubin Direct 0.5 0.0-0.5 mg/dL Aspartate Amino Transferase 43 5-37 U/L Alanine Aminotransferase 91 0-40 U/L Total Protein 5.2 6.5-8.0 g/dL Albumin Level 3.0 3.5-5.0 g/dL Alkaline Phosphatase 152 39-117 U/L Basic Metabolic Panel Reviewed date:01/07/2025 04:54:53 PM Interpretation: Performing Lab:[address] [address] Notes/Report: Sodium 139 135-145 mmol/L Potassium 3.8 [...] Blood Reviewed date:01/07/2025 04:53:48 PM Interpretation: Performing Lab:[facility], [address] [place] [phone] Notes/Report: Glucose, Whole Blood 91 60-115 mg/dL METER # : [id number] US abdomen comp w elastograp hy Reviewed date:01/09/2025 05:55:24 PM Interpretation: Performing Lab: Notes/Report: [address] [address] Ultrasound Report Signed Patient: Deacon Romo MR#: [id number] 682 : 1940 Acct:[id number] Age/Sex: 84 / M ADM Date: 01/06/25 Loc: [facility] [address]: Krishna Lemon MD Ordering Physician: Leo Guo MD Date of Service: 01/07/25 Procedure(s): US abdomen comp w elastography Accession Number(s): [id number] cc: Vini Mendoza MD; Leo Guo MD [...] Checo Bronson MD 01/09/2025 07:13 AM EDT RP Dictated By: Checo Bronson MD Signed By: <Electronically signed by Checo Bronson MD in OV> 01/09/25 07 DD/ 0800 TD/TT: 01/07/25 0830 Art Historian: [place] [address] Ultrasound Report Signed Patient: Ana María Romo MR#: [id number] 682 : 1940 Acct:[id number] Age/Sex: 84 / M ADM Date: 01/06/25 Loc: [facility] 473-[address]: Suzan Lemon MD Ordering Physician: Leo Guo MD Date of Service: 01/07/25 Procedure(s): US abd omen comp w elastography Accession Number(s): [id number] cc: Vini Mendoza MD; Leo Guo MD [...] 01/09/25 0713 DD/ 0800 TD/TT: 01/07/25 0830 Art Historian: [facility] [place]R chest 1V Reviewed date:01/07/2025 04:49:50 PM Interpretation: Performing Lab: Notes/Report: [address] [address] XRay Report Signed Patient: Deacon Romo MR#: [id number] 682 : 1940 Acct:[id number] Age/Sex: 84 / M ADM Date: 01/06/25 [facility]: Krihsna Lemon MD Ordering Physician: Krishna Lemon MD Date of Service: 01/07/25 Procedure(s): XR chest 1V Accession Number(s): [id number] cc: Vini Mendoza MD; Krishna Lemon MD [...] 01/07/25 1147 DD/ 1146 TD/TT: 01/07/25 1146 Art Historian: [address] [address] XRay Report Signed Patient: Ana María Romo MR#: [id number] 682 : 1940 Acct:[id number] Age/Sex: 84 / M ADM Date: 01/06/25 Loc: [facility]-[address]: Suzan Lemon MD Ordering Physician: Krishna Lemon MD Date of Service: 01/07/25 Procedure(s): XR chest 1V Accession Number(s): [id number] cc: Vini Mendoza MD; Krishna Lemon MD CLINICAL HISTORY: pl eual effusion [...] 01/07/25 1147 DD/ 1146 TD/TT: 01/07/25 1146 Art Historian: Glucose, Whole Blood Reviewed date:01/07/2025 04:50:31 PM Interpretation: Performing Lab:[facility], [address] [place] [phone] Notes/Report: Glucose, Whole Blood 123 60-115 mg/dL METER # : [id number] Glucose, Whole Blood Reviewed date:01/07/2025 04:49:08 PM Interpretation: Performing Lab:[facility], [address] [place] [phone] Notes/Report: Glucose, Whole Blood 123 60-115 mg/dL METER # : [id number] Glucose, Whole Blood Reviewed date:01/08/2025 02:53:57 PM Interpretation: Performing Lab:[facility], [address] [place] [phone] Notes/Report: Glucose, Whole Blood 135 60-115 mg/dL METER # : [id number] Complete Blood Count no Diff Reviewed date:01/08/2025 02:53:57 PM Interpretation: Performing Lab:[facility], [address] [place] [phone] Notes/Report: White Blood Count 5.8 4.8-10.8 X10*3/uL [...] Panel Reviewed date:01/08/2025 02:53:57 PM Interpretation: Performing Lab:[facility], [address] [place] [phone] Notes/Report: Sodium 140 135-145 mmol/L Potassium 4.1 [...] Blood Reviewed date:01/08/2025 02:53:57 PM Interpretation: Performing Lab:[facility], [address] [place] [phone] Notes/Report: Glucose, Whole Blood 116 60-115 mg/dL METER # : [id number] Glucose, Whole Blood Reviewed date:01/08/2025 02:53:57 PM Interpretation: Performing Lab:[facility], [address] [place] [phone] Notes/Report: Glucose, Whole Blood 134 60-115 mg/dL METER # : [id number] Glucose, Whole Blood Reviewed date:01/09/2025 05:55:24 PM Interpretation: Performing Lab:[facility], [address] [place] [phone] Notes/Report: Glucose, Whole Blood 99 60-115 mg/dL METER # : [id number] Glucose, Whole Blood Reviewed date:01/09/2025 05:55:24 PM Interpretation: Performing Lab:[facility], [address] [place] [phone] Notes/Report: Glucose, Whole Blood 137 60-115 mg/dL METER # : [id number] Complete Blood Count Auto Di ff Reviewed date:01/09/2025 11:56:45 AM Interpretation: Performing Lab:[facility], [address] [place] [phone] Notes/Report: White Blood Count 6.1 4.8-10.8 X10*3/uL [...] Blood Reviewed date:01/09/2025 05:50:19 PM Interpretation: Performing Lab:[facility], [address] [place] [phone] Notes/Report: Glucose, Whole Blood 100 60-115 mg/dL METER # : [id number] Pathology Reviewed date:01/11/2025 02:08:52 PM Interpretation: Performing Lab:[facility], [address] [place] [phone] Notes/Report: ----- Name: RasheedaNury roldan hayden Age/Sex: 84/M : 1940 Unit#: [id number] Attend Dr: Hal Monroy Re01/06/25 Status : DIS IN Location: [facility] 473-1 Disch: 01/10/25 ----- SPEC : [id number] RECD : 01/09/25-1530 STATUS: STANISLAW CARDOZO NUM: [id number] DEISY: 01/09/25-[address] [facility] [address]: Leo Guo MD ENTERED: 01/09/25- [...] Nury Romo Age/Sex: 84/M : 1940 Unit#: [id number] [facility] Status : DIS IN Location: [facility] 473-1 Disch: 01/10/25 ----- SPEC : [id number] RECD : 01/09/25-1530 STATUS: STANISLAW ANDERSEN NUM: [id number] DEISY: 01/09/25-[address] [facility] [address]: Leo Guo MD ENTERED: 01/09/25-15 [...] developed and their performance characteristics determined by [facility]. They have not been cleared or appr viry by the U.S. Food and Drug Administration (FDA). However, the FDA has determined that such clearance or approval is not necessary. This laboratory is certified under the Clinical Laboratory Improvement Amendments of 1988 (CLIA) as qualified to perform high complexity clinical laboratory testing. Copies To: Vini Mendoza MD [facility] [address] [facility] [address] [place] [address] Krishna Lemon MD [address] [place] [address] Leo Guo MD [facility] [address] [place], [place] [id number] ----- Signed (signature on file) Naty Younger MD 01/11/25 0823 ----- END OF REPORT Hold Green Gel Reviewed date:01/09/2025 11:57:28 AM Interpretation: Performing Lab:[facility], [address] [place] [address] Notes/Report: Hold Green Gel See Note Specimen held untested for 24 hours; Call to request Chemistry testing. Glucose, Whole Blood Reviewed date:01/09/2025 05:49:26 PM Interpretation: Performing Lab:[facility], [address] [facility], [place] [address] Notes/Report: Glucose, Whole Blood 98 60-115 mg/dL METER # : [id number] Glucose, Whole Blood Reviewed date:01/09/2025 05:50:11 PM Interpretation: Performing Lab:[facility], [address] [place] [phone] Notes/Report: Glucose, Whole Blood 122 60-115 mg/dL METER # : [id number] Glucose, Whole Blood Reviewed date:01/10/2025 06:01:42 PM Interpretation: Performing Lab:[facility], [address] [place] [phone] Notes/Report: Glucose, Whole Blood 139 60-115 mg/dL METER # : [id number] Complete Blood Count Auto Di ff Reviewed date:01/10/2025 06:02:14 PM Interpretation: Performing Lab:[facility], [address] [place] [phone] Notes/Report: White Blood Count 4.9 4.8-10.8 X10*3/uL [...] 0.000 0.0-0.012 X10*3/uL Basic Metabolic Panel Fastin haydee Reviewed date:01/10/2025 06:02:14 PM Interpretation: Performing Lab:[facility], [address] [place] [phone] Notes/Report: Sodium 145 135-145 mmol/L Potassium 3.8 [...] Blood Reviewed date:01/10/2025 06:02:14 PM Interpretation: Performing Lab:[facility], [address] [place] [phone] Notes/Report: Glucose, Whole Blood 97 60-115 mg/dL METER # : [id number] Pathology Reviewed date:01/11/2025 02:12:24 PM Interpretation: Performing Lab:[facility], [address] [place] [phone] Notes/Report: ----- Name: Nury Romo Age/Sex: 84/M : 1940 Unit#: [id number] Attend Dr: Hal Monroy Re01/06/25 Status : DIS IN Location: [address] Disch: 01/10/25 ----- SPEC : [id number] REC STATUS: STANISLAW REChidi NUM: [id number] DEISY: 01/10/25-[address] [facility] [address]: Cedrick Butt MD ENTERED: 01/10/25-13 13 [...] developed and their performance characteristics determined by [facility]. They have not been cleared or appr viry by the U.S. Food and Drug Administration (FDA). However, the FDA has determined that such clearance or approval is not necessary. This laboratory is certified under the Clinical Laboratory Improvement Amendments of 1988 (CLIA) as qualified to perform high complexity clinical laboratory testing. Copies To: aHl Monroy [address] [place] [address] [email or web address] CONTINUED ON NEXT PAGE ----- Name: Nruy Romo Age/Sex: 84/M : 1940 Unit#: [id number] Attend Dr: Hal Monroy Re01/06/25 Status : DIS IN Location: [facility] 473-1 Disch: 01/10/25 ----- SPEC : [id number] RECD : 01/10/25-130 STATUS: STANISLAW CARDOZO NUM: [id number] DEISY: 01/10/25-[address] [facility] [address]: Cedrick Butt MD ENTERED: 01/10/25-13 13 SP TYPE: Surgical OTHR DR: Hal Monroy Glen P MD ORDERED: JENN Stain/3, Gross Micro L4 Copies To: (Continued) Vini Mendoza MD [facility] [address] [place] [address] Cedrick Butt MD [facility] [address] [place], [place] [id number] ----- Signed (signature on file) Nichole Durant 01/11/25 1301 ----- END OF REPORT Glucose, Whole Blood Reviewed date:01/10/2025 03:32:59 PM Interpretation: Performing Lab:[facility], [address] [place] [phone] Notes/Report: Glucose, Whole Blood 95 60-115 mg/dL METER # : [id number] Reason For Referral Reason Iron deficiency anem ia Diagnosis 1 Iron deficiency anem ia (D50.9) Referral Organization Vini Mendoza MD Referring Provider First Name Vini Referring Provider Last Name Kelly Referring Provider Speciality Internal M edicine Referred Provider Leo Guo Referred Provider [...] Last Name Kelly Referring Provider Speciality Internal M edicine Referred Provider Elliot Hogue Referred Provider [...] Last Name Kelly Referring Provider Speciality Internal M edicine Referred Provider Cedrick Butt Referred Provider Specialty Gastroentero logy General Notes Cynthia Rich 0 12/29/2024 01:41:57 PM >sent notes with labs, Cynthia Rich 12/30/2024 12:45:23 PM >patient is aware of appt Referral Priority Routine Referral Appointment Date 01/09/2025 Medications Medication SIG (Take, Route, Frequency, Duration) Notes Start Date End Date Status Ozempic (1 MG/DOSE) 4 MG/3ML 1 mg Subcutaneous weekly for 30 days 02/23/2025 Active Montelukast Sodium 10 MG TAKE ONE TABLET BY MOUTH EVERY EVENING for 90 days Active Ozempic (1 MG/DOSE) 4 MG/3ML 1 mg Subcutaneous weekly 04/15/2024 Act queenie Valtrex 1 GM 2 tablet Orally ever y 12 hrs for 1 dose 05/07/2012 Not-Taking Ozempic (0.25 or 0.5 MG/DOSE) 2 MG/3ML as directed Subcutaneous 0.25 mg weekly fminth then .5mg weekly for 30 days 02/22/2024 Not-Taking Nitrostat 0.4 MG 1 tablet under the [...] a day for 90 days 12/29/2024 Active Xyzal Allergy 24HR 5 MG 1 tablet in the evening Orally Once a day for 30 day(s) Active metFORMIN HCl 1000 MG TAKE ONE TABLET BY MOUTH TWICE A DAY WITH MEALS Orally twice a day for 90 days Active Datran MediaTouch Ultra Test TEST BLOOD GLUCOSE T WICE A DAY for 50 Active Finasteride 5 MG 1 tablet Orally Once a day for 90 days Active Datran MediaTouch Delica Lancing Dev as directed for 50 03/03/2013 Active Fluticasone Propionate 50 MCG/ACT SPRAY 1 SPRAY INTO EACH NOSTRIL ONCE A DAY for 180 Active Metoprolol Succinate ER 25 MG 1 tablet Orally twice a day for 30 days Active Aspirin 81 81 MG 1 tablet Orally Once a day for 30 day(s) 12/29/2024 Active Atorvastatin Calcium 40 MG TAKE ONE TABLET BY MOUTH EVERY DAY Orally for 90 days Active Ozempic (2 MG/DOSE) 8 MG/3ML INJECT 2MG UNDER THE SKIN ONCE A WEEK for 28 Active Immunizations Vaccine Route Administration Date Status [...] 02/11/2015 Administered pt herrera d vaccine at [facility] on [facility] Fluarix Quadrivalent IM Intramuscular 02/11/2016 Administered Shingles Unknown 03/29/2009 Administered Fluarix Quadrivalent IM Intramuscular 02/23/2017 Administered Shingrix IM Intramuscular 02/08/2018 Administered pt wa given the vaccine at [facility] on [facility]. Flu Vaccine Unknown 02/08/2018 Administered pt was give n the vaccine at [employer] [facility] on [facility]. Shingrix IM Intramuscular 05/17/2018 Administered pt was given the vaccine at [facility] in [place]. PPSV23 (Pnemovax) IM Intramuscular 09/10/2018 Administered Fluarix [...] Problem Status W/U Status Risk Notes Problem 28449898 Prostatism (N40.0) Active confirmed Problem 989915960 Asthmatic bronch itis (J45.909) Active confirmed Problem Unstable angina (9343578) Unstable angina (I20.0) Active confirmed Problem 77263503 Essential hypert ension (I10) Active confirmed Problem 01275130 Type 2 diabetes mellitus without complication (E11.9) Active confirmed Problem 259077146 Low HDL (under 4 0) (E78.6) Active confirmed Problem Biochemically recurrent prostate cancer (disorder) (46233988264122 1) Rising PSA level (R97.2) Active confirmed Problem Irregular heart beat (461117856) Irregular heart beat (I49.9) Active confirmed Problem Iron deficiency anemia (14715623) Iron deficiency anemia (D50.9) Active confirmed Problem 18647002 Sleep apnea, unspecified type (G47.30) Active confirmed Problem 464075943 Pure hypercholesterolemia (E78.00) Active confirmed Problem 44680770 Seasonal allergi c rhinitis due to pollen (J30.1) Active confirmed Problem 630428920 Adenomatous poly p of colon, unspecified part of colon (D12.6) Active confirmed Problem 707057022 BMI 32.0-32.9,ad ult (Z68.32) Active confirmed Problem 17232267 Bilateral hearin g loss, unspecified hearing loss type (H91.93) Active confirmed Vital Signs Blood pressure diastolic 64 mm Hg 02/23/2025 carol ght is down 5 pounds since 02-02-25 Height 70 in 02/23/2025 weight is down 5 pounds since 02-02-25 Blood pressure systolic 122 mm Hg 02/23/2025 clarence ht is down 5 pounds since 02-02-25 Weight 178 lbs 02/23/2025 weight is down 5 pounds since 02-02-25 BMI 25.54 kg/m2 02/23/2025 weight is down 5 pounds since 02-02-25 Encounters Encounter Location Date Provider Diagnosis Vini Mendoza MD [address] [place] [address] [id number] 06/24/2024 Vini Mendoza Blood tests for rout ine general physical examination Z00.00 ; Essential hypertension I10 ; Type 2 diabetes mellitus without complication E11.9 ; Pure hypercholesterolemia E78.00 and Prostatism N40.0 Vini Mendoza MD [address] [place] [address] [id number] 10/14/2024 Vini Mendoza Iron deficiency E61. 1 Vini Mendoza MD [address] [place] [address] [id number] 01/02/2025 Vini Mendoza Rectal bleed K62.5 Vini Mendoza MD [address] [place] [address] [id number] 01/05/2025 Vini Mendoza Anemia D64.9 Vini Mendoza MD [address] [place] [address] [id number] 01/23/2025 Vini Mendoza Anemia D64.9 Vini Mendoza MD [address] [place] [address] [id number] 02/21/2025 Vini Mendoza Iron deficiency anem ia D50.9 and Elevated liver function tests R79.89 Vini Mendoza MD [address] [place] [address] [id number] 03/02/2025 Vini Mendoza Elevated liver funct ion tests R79.89 Vini Mendoza MD [address] [place] [address] [id number] 04/15/2024 Vini Mendoza Type 2 diabetes arabella itus without complication E11.9 and Newly recognized murmur R01.1 Vini Mendoza MD [address] [place] [address] [id number] 06/10/2024 Vini Mendoza Viral URI J06.9 Vini Mendoza MD [address] [place] [address] [id number] 07/01/2024 Vini Mendoza Mild anemia D64.9 ; Annual physical exam Z00.00 ; Type 2 diabetes mellitus without complication E11.9 ; Pure hypercholesterolemia E78.00 ; Prostatism N40.0 ; Colon cancer screening Z12.11 and Depression screening Z13.31 Vini Mendoza MD [address] [place] [address] [id number] 07/08/2024 Vini Mendoza Iron deficiency E61. 1 Vini Mendoza MD [address] [place] [address] [id number] 10/21/2024 Vini Mendoza Type 2 diabetes arabella itus without complication E11.9 ; Iron deficiency anemia D50.9 and Chest pain R07.9 Vini Mendoza MD [address] [place] [address] [id number] 11/18/2024 Vini Mendoza Type 2 diabetes arabella itus without complication E11.9 and Chest pain R07.9 Vini Mendoza MD [address] [place] [address] [id number] 12/05/2024 Vini Mendoza Unstable angina I20. 0 Vini Mendoza MD [address] [place] [address] [id number] 12/29/2024 Vini Mendoza Elevated LFTs R79.89 ; Rectal bleeding K62.5 ; History of atrial fibrillation Z86.79 and Elevated liver enzymes R74.8 Vini Mendoza MD [address] [place] [address] [id number] 02/02/2025 Vini Mendoza Anemia D64.9 ; Weakn ess R53.1 and Encounter for administration of vaccine Z23 Vini Mendoza MD [address] [place] [address] [id number] 02/23/2025 Vini Mendoza Type 2 diabetes arabella itus without complication E11.9 ; Rectal bleeding K62.5 ; Pure hypercholesterolemia E78.00 ; Elevated LFTs R79.89 and Anemia D64.9 Vini Mendoza MD [address] [place] [address] [id number] 05/17/2024 Vini Mendoza MD [address] [place] [address] [id number] 07/03/2024 Vini Mendoza MD [address] [place] [address] [id number] 07/08/2024 Vini Mendoza MD [address] [place] [address] [id number] 07/19/2024 Vini Mendoza Colon cancer screeni ng Z12.11 Vini Mendoza MD [address] [place] [address] [id number] 07/19/2024 Vini Mendoza MD [address] [place] [address] [id number] 12/19/2024 Vini Mendoza MD [address] [place] [address] [id number] 12/30/2024 Vini Mendoza Elevated LFTs R79.89 and Rectal bleeding K62.5 Vini Mendoza MD [address] [place] [address] [id number] 12/30/2024 Vini Mendoza MD [address] [place] [address] [id number] 01/12/2025 Vini Mendoza MD [address] [place] [address] [id number] 01/12/2025 Vini Mendoza Pure hypercholestero lemia E78.00 Vini Mendoza MD [address] [place] [address] [id number] 01/16/2025 Vini Mendoza MD [address] [place] [address] [id number] 02/03/2025 Vini Mendoza MD [address] [place] [address] [id number] 02/21/2025 Vini Mendoza MD [address] [place] [address] [id number] 02/24/2025 Vini Mendoza MD [address] [place] [address] [id number] 02/24/2025 Vini Mendoza Assessments Encounter Date Diagnosis (ICD [...] Iron deficiency anem ia (ICD-10 - D50.9) 03/02/2025 Elevated liver funct ion tests (ICD-10 - R79.89) 04/15/2024 Type 2 diabetes mellitus without complication (ICD-10 - E11.9) patient verbalized understanding of medication and directions for use 04/15/2024 Newly recognized mur mur (ICD-10 - R01.1) pending diagnostic testing, order faxed to [facility] dept 06/10/2024 [...] and to try nitro/ order faxed to [facility] dept 12/05/2024 Unstable angina (ICD -10 - I20.0) will send by ambulance down to [facility] Total time spent on the date of [...] 2 weaks and see if they diminish 02/23/2025 Type 2 diabetes mellitus without complication (ICD-10 - E11.9) patient verbalized understanding of change in medication, will continue to monitor 02/23/2025 Rectal bleeding (ICD -10 - K62.5) stable 07/19/2024 Colon cancer screeni ng (ICD-10 - [...] (ICD-10 - Z23) HD flu vaccine administered 02/23/2025 Pure hypercholesterolemia (ICD-10 - E78.00) stable, will continue current regiment 12/30/2024 Rectal bleeding (ICD -10 - K62.5) 06/24/2024 Pure hypercholesterolemia (ICD-10 - E78.00) 07/01/2024 Pure hypercholesterolemia (ICD-10 - E78.00) doing well on meds, willcontiue current regiment z 02/23/2025 Elevated LFTs (ICD-1 0 - R79.89) pending diagnostic labs 06/24/2024 Prostatism (ICD-10 - N40.0) 07/01/2024 Prostatism (ICD-10 - N40.0) followed by Urology z 12/29/2024 Elevated liver enzym es (ICD-10 - R74.8) 02/23/2025 Anemia (ICD-10 - D64.9) will continue to monitor 07/01/2024 Colon cancer screeni ng (ICD-10 - Z12.11) guaiac negative z 07/01/2024 Depression screening (ICD-10 - Z13.31) negative screen z 02/23/2025 Other black stools we re most likely related to iron supplementation since stool is negative 4 days ago stools were negative Plan Of Treatment Pending Test Test Name Order Date Electrocardiogram (EKG) 02/26/2017 Electrocardiogram (EKG) 12/05/2024 Occult Blood, Stool, Guaiac 03/05/2018 HEPATITIS A,B,C PROFILE 02/23/2025 CT ABD & PELVIS WITH IV CONT ONLY 2022 CT ABD & PELVIS WWO CONTRAST 11/21/2022 US ABD 12/29/2024 Stress Test 11/18/2024 ECHO 04/15/2024 US abdomen limited 06/05/2022 Future Test Test Name Order Date US abdomen limited 01/04/2023 Liver Panel 03/02/2025 Next Appt Details Provider Name:Vini Moscoso ier, 03/06/2025 01:00:00 PM, [address], [address], [place], [place], [phone], Provider Name:Vini Moscoso ier, 06/29/2025 07:45:00 AM, [address], [address], [place], [phone], Provider Name:Vini Moscoso ier, 07/06/2025 09:30:00 AM, [address] [facility], [address], [place], [phone], Insurance Providers Payer Name Payer Address Payer Phone Subscriber Number Group Number Insured Name Patient Relationship to Insured Coverage Start Date Coverage End Date [employer] MED[employer]ARE [employer]VANTAGE [address] [place], [place] [id number] Deacon Romo Self - patient is the insured [facility] [employer] [address] [place] [phone] [id number] Deacon Romo Self - patient is the insured MEDICARE [employer] [address] [place] [address] [id number] Deacon Romo Self - patient is the insured Medical (General) History Medical History History ICD Code colonoscopy 07/2014 repeat in 3 years; colonoscopy 01/02/16 w/ Dr. Butt; colonoscopy done 02/11/[address] Butt, no futher testing needed.01/26/24 Colonoscopy, pending biopsy01/10/25 colonoscopy pending path
== END 2025-03-02 10:55 | disposition home or self-care (01) ==
LOC: HO.LNP 10:54
PROVIDERS: Visit Provider Internal Medicine
DX: R79.89 Other specified abnormal findings of blood chemistry (principal)
CPT/HCPCS: 80076; 86704; 86706; 86709; 86803; 87340

== ENCOUNTER 2025-03-06 08:52 | Outpatient (REF) | payer MEDICARE, OTHER, SELFPAY ==
--- OUTSIDE RECORDS SUMMARY | 2024-01-26 06:00 | XMS_ITS ---
Author Organization [facility] Address [address] [place] [address] [place] [address] Care Team Providers Care Rn Hospice Name Role Phone Vini Mendoza MD Primary Care Provider Jennifer Justin Jr, Cedrick Unavailable REASON FOR VISIT screening Encounters Encounter Location Date Provider Diagnosis [facility] [place] [place] [address] [place] [phone] 01/26/2024 Cedrick Justin Jr Colon cancer screening [...] Provider Name:Cedrick licona Jr, 03/27/2025 02:15:00 PM, [address] [place] [address], [address], [place], [address], Progress Notes * TOMEKA OLIVIERDOB:[birth year] (84 yo M)Acc No.[id number]:01/26/2024 COLON WITH MAC Patient: TOMEKA IRVIN Provider: Jerica Justin MD :1940 A ge:83 Y S ex:Male Date:01/26/2024 Address:[address] [place] [address] [facility] Pcp:Vini Mendoza MD Subjective: * Chief Complaints: * 1 . Screening. * Medical History: Objective: * Vitals: Assessment: * Assessment: 1. C olon cancer screening - Z12.11 (Primary) 2 . F amily history of colon cancer - Z80.0 3 . C olon polyps - K63.5 Plan: * Treatment: * Procedure Codes: 4 5385 LESION REMOVAL COLONOSCOPY, 98313 LESION REMOVE COLONOSCOPY, Modifiers: 59 , 01657 COLONOSCOPY AND BIOPSY, Modifiers: 59 , 0529F INTRVL 3+YRS PTS CLNSCP DOCD * * The named appointment provid er may or may not be the originator of this progress note, and it is not deemed complete until electronically signed by the appointment provider. Sign off status: Pending * Provider: Jerica Justin MD Date: 0 01/26/2024 Generated for Meg brenner/Min/Jordenitting on: 1 09:46 AM EDT
--- OUTSIDE RECORDS SUMMARY | 2025-01-09 07:20 | XMS_ITS ---
Author Organization [facility] Address [address] [place] [phone] Care Team Providers Care Display Associate Name Role Phone Vini Mendoza MD Primary Care Provider Jennifer Justin Jr, Cedrick Unavailable REASON FOR VISIT Patient presents today for a gi bleed Encounters Encounter Location Date Provider Diagnosis [facility] [address] [facility] [address] [place] [phone] 01/09/2025 Cedrick Justin Jr Plan Of Treatment Next Appt Details Provider Name:Cedrick licona Jr, 03/27/2025 02:15:00 PM, [address] [facility], [address], [place], [address], Progress Notes * TOMEKA OLIVIERDOB:[birth year] (84 yo M)Acc No.[id number]:01/09/2025 Progress Notes Patient: TOMEKA IRVIN Provider: Jerica Justin MD :1940 A ge:84 Y S ex:Male Date:01/09/2025 Address:[address] [place] [address] [facility] Pcp:Vini Mendoza MD Subjective: * Chief Complaints: [...] 0 01/09/2025 Generated for Meg brenner/Min/Derick on: 1 09:46 AM EDT
--- OUTSIDE RECORDS SUMMARY | 2025-01-10 09:00 | XMS_ITS ---
Author Organization [facility] Address [address] [place] [address] Care Team Providers Care Sheet Metal Journeyman Name Role Phone Vini Mendoza MD Primary [...] Active Encounters Encounter Location Date Provider Diagnosis [facility] [place] [address] [place], [place] [phone] 01/10/2025 Cedrick Justin Jr Plan Of Treatment Next Appt Details Provider Name:Cedrick licona Jr, 03/27/2025 02:15:00 PM, [address], [address], [place], [address], Progress Notes * TOMEKA OLIVIERDOB:[birth year] (84 yo M)Acc No.[id number]:01/10/2025 COLON WITH MAC Patient: TOMEKA IRVIN Provider: Jerica Justin MD :1940 A ge:84 Y S ex:Male Date:01/10/2025 Address:[address] [place] [address], [id number] Pcp:Vini Mendoza MD Subjective: * Chief Complaints: [...] 01/10/2025 Generated for Meg brenner/Min/Jordenitting on: 1 09:47 AM EDT
--- OUTSIDE RECORDS SUMMARY | 2025-01-25 05:20 | XMS_ITS ---
Author Organization [facility] Address [address] [place] [address] Care Team Providers Care Lab Scientist Name Role Phone Vini Mendoza MD Primary Care Provider Jennifer Justin Jr, Cedrick Blank REASON FOR VISIT fam hx colon ca, anemia Encounters Encounter Location Date Provider Diagnosis [facility] [address] [facility] [address] [place] [phone] 01/25/2025 Cedrick Justin Jr Plan Of Treatment Next Appt Details Provider Name:Cedrick licona Jr, 03/27/2025 02:15:00 PM, [address], [address], [place], [address], Progress Notes * TOMEKA OLIVIERDOB:[birth year] (84 yo M)Acc No.[id number]:01/25/2025 Progress Notes Patient: TOMEKA IRVIN Provider: Jerica Justin MD :1940 A ge:84 Y S ex:Male Date:01/25/2025 Address:[address] [place], [place] [id number] Pcp:Vini Mendoza MD Subjective: * Chief Complaints: * 1 . Fam hx colon ca, anemia. * Medical History: Objective: * Vitals: Assessment: Plan: * Treatment: * * The named appointment provid er may or may not be the originator of this progress note, and it is not deemed complete until electronically signed by the appointment provider. Sign off status: Pending * Provider: Jerica Justin MD Date: 0 01/25/2025 Generated for Meg brenner/Min/Derick on: 1 09:47 AM EDT
--- OUTSIDE RECORDS SUMMARY | 2025-02-23 05:15 | XMS_ITS ---
Author Organization Vini Mendoza MD Address [address] [place] [phone] Care Team Providers Care Allied Health Teacher Name Role Phone Vini Mendoza Primary Care [...] kg/m2 02/23/2025 weight is down 5 pounds [facility] [place] 9-4-25 Encounters Encounter Location Date Provider Diagnosis Vini Mendoza MD [address] [place] [address] [address] [place], [place] [phone] 02/23/2025 Vini Mendoza Type 2 diabetes arabella [...] 03/02/2025 Next Appt Details Provider Name:Vini herzog, 03/06/2025 01:00:00 PM, [address] [place] [address], [address], [place], [place], [phone], Provider Name:Vini Moscoso ier, 06/29/2025 07:45:00 AM, [address], [address], [place], [phone], Provider Name:Vini Moscoso ier, 07/06/2025 09:30:00 AM, [address], [address], [place], [phone], Progress Notes * Deacon ROMODOB:[birth year] (84 yo M)Acc No.[id number]:02/23/2025 Progress Notes Patient: Deacon IRVIN Provider: Galina Mendzoa MD :1940 A ge:84 Y S ex:Male Date:02/23/2025 Address:[address] [place] [address] [place], [phone] Subjective: * Chief Complaints: * 3 WK [...] 02/23/2025 Generated for Meg brenner/Min/Jordenitting on: 1 09:46 AM EDT History and Physical Notes * [...]
--- OUTSIDE RECORDS SUMMARY | 2025-02-24 05:19 | XMS_ITS ---
Author Organization Vini Mendoza MD Address [address] [place] [phone] Care Team Providers Care Hospice Director Name Role Phone Vini Mendoza Primary Care Provider REASON FOR VISIT med issue Medications Medication SIG (Take, Route, Frequency, Duration) Notes Start Date End Date Status Metoprolol Succinate ER 25 MG 1 tablet Orally Once a day for 90 days Active Encounters Encounter Location Date Provider Diagnosis Vini Mendoza MD 10 [facility] [address] [place] [phone] 02/24/2025 Vini Mendoza Plan Of Treatment Medication Medication Name Sig Start Date Stop Date Notes Metoprolol Succinate ER 25 MG 1 tablet O rally Once a day for 90 days Next Appt Details Provider Name:Vini Moscoso ier, 03/06/2025 01:00:00 PM, [address] [place] [address], [address], [place], [phone], Provider Name:Vini Moscoso ier, 06/29/2025 07:45:00 AM, [address] [place] [address], Suite [facility], [place], [phone], Provider Name:Vini Moscoso ier, 07/06/2025 09:30:00 AM, [address] [place] [address], [address], [place], [phone], Progress Notes * Deacon ROMODOB:[birth year] (84 yo M)Acc No.[id number]:02/24/2025 Patient: Galina LAZARO Deacon :1940 A ge:84 Y S ex:Male Address:[address] [place] [address], [place] [address] * Refills Continue Metoprolol Succinate ER Tablet Extended Release 24 Hour, 25 MG, Orally, 90 Tablet, 1 tablet, Once a day, 90 days, Refills=3 * true * Date: Generated for Meg brenner/Min/Jordenitting on: 09:46 AM EDT
--- OUTSIDE RECORDS SUMMARY | 2025-02-24 10:27 | XMS_ITS ---
Author Organization Vini Mendoza MD Address [address] [place] [phone] Care Team Providers Care Pipe Fitter Supervisor Maintenance Name Role Phone Vini Mendoza Primary Care Provider Medications Medication SIG (Take, Route, Frequency, Duration) Notes Start Date End Date Status Metoprolol Succinate ER 25 MG 1 tablet Orally twice a day for 30 days Active Encounters Encounter Location Date Provider Diagnosis Vini Mendoza MD [address] [place] [phone] 02/24/2025 Vini Mendoza Plan Of Treatment Medication Medication Name Sig Start Date Stop Date Notes Metoprolol Succinate ER 25 MG 1 tablet O rally twice a day for 30 days Next Appt Details Provider Name:Vini Moscoso chilor, 03/06/2025 01:00:00 PM, [address], [address], [place], [phone], Provider Name:Vini herzog, 06/29/2025 07:45:00 AM, [address], [address], [place], [phone], Provider Name:Vini Moscoso chilor, 07/06/2025 09:30:00 AM, [address], [address], [place], [phone], Progress Notes * Deacon ROMODOB:[birth year] (84 yo M)Acc No.[id number]:02/24/2025 Patient: Deacon IRVIN :1940 A ge:84 Y S ex:Male Address:[address] [place] [address], [place] [address] * Refills Continue Metoprolol Succinate ER Tablet Extended Release 24 Hour, 25 MG, Orally, 60 Tablet, 1 tablet, twice a day, 30 days, Refills=5 * true * Date: Generated for Meg brenner/Min/Jordenitting on: 09:46 AM EDT
--- OUTSIDE RECORDS SUMMARY | 2025-03-02 03:45 | XMS_ITS ---
Author Organization Vini Mendoza MD Address [address] [place] [phone] Care Team Providers Care Assistant Refinery Operator Name Role Phone Vini Mendoza Primary Care Provider Results Component Value Reference Range Notes Liver Panel Reviewed date:03/02/2025 12:33:15 PM Interpretation: Performing Lab:[facility], [address] [place] [phone] Notes/Report: Bilirubin Total 1.0 0.0-1.0 mg/dL Bilirubin Direct 0.3 0.0-0.5 mg/dL Aspartate Amino Transferase 41 5-37 U/L Alanine Aminotransferase 30 0-40 U/L Total Protein 6.2 6.5-8.0 g/dL Albumin Level 3.9 3.5-5.0 g/dL Alkaline Phosphatase 100 39-117 U/L Hepatitis A,B,C Profile Reviewed date:03/02/2025 12:33:25 PM Interpretation: Performing Lab:[facility], [address] [place] [phone] Notes/Report: Hepatitis A Antibody IgM Nonreactive Nonreactive [...] Location Date Provider Diagnosis Vini Mendoza MD [address] [place] [phone] 03/02/2025 Vini Mendoza Elevated liver function tests R79.89 Assessments Encounter Date Diagnosis (ICD Code) Assessment Notes Treatment Notes Treatment Clinical Notes Section Notes 03/02/2025 Elevated liver function tests (ICD-10 - R79.89) Plan Of Treatment Next Appt Details Provider Name:Vini herzog, 03/06/2025 01:00:00 PM, [address] [place] [address], [address], [phone], Provider Name:Vini herzog, 06/29/2025 07:45:00 AM, [address] [place] [address], [address], [phone], Provider Name:Vini herzog, 07/06/2025 09:30:00 AM, [address] [place] [address], [phone], Progress Notes * Deacon ROMODOB:[birth year] (84 yo M)Acc No.[id number]:03/02/2025 Progress Note Patient: Deacon IRVIN Provider: Galina Mendoza MD :1940 A ge:84 Y S ex:Male Date:03/02/2025 Address:[address] [place] [address], [place], [phone] Subjective: * Chief Complaints: * 1 . [...] Date: 1 Generated for Meg brenner/Min/Jordenitting on: 09:47 AM EDT
--- NOTE | ~2025-03-06 | US_ITS ---
CLINICAL HISTORY: ELEVATED LIVER US abdomen complete Comparison: US/MA/SR - US ABDOMEN COMP W ELASTOGRAPHY - 01/07/25 08:11 EDT US/SR - US ABDOMEN LIMITED - 01/02/23 10:54 EDT Findings: The visualized pancreas is normal. The visualized aorta and inferior vena cava are normal caliber. The liver is normal in size and echotexture. There is no intrahepatic bile duct dilatation. The common duct is 3.0 mm in diameter. The gallbladder is normal. There is no sonographic Chavez sign. The main portal vein is antegrade. The right kidney is 12 cm in length. Multiple renal cysts. There is a hypoechoic area in the midpole kidney. Possible small perinephric fluid. The left kidney is 13.6 cm in length. 8 mm cyst. The spleen is mildly enlarged. No ascites. IMPRESSION: Liver is unremarkable. Possible prominent column of Daniel of the right kidney and small perinephric fluid. Further evaluation by contrast CT as indicated to exclude other possibilities given that column of Daniel is more commonly seen on the left side. This document has been electronically signed by: Pierre Neal MD on 03/06/2025 18:19:38
--- OUTSIDE RECORDS SUMMARY | 2025-03-06 09:00 | XMS_ITS ---
Author Organization Vini Mendoza MD Address [address] [place] [phone] Care Team Providers Care Physician'S Aide Name Role Phone Vini Mendoza Primary Care Provider [phone] REASON FOR VISIT follow up appt after blood work Encounters Encounter Location Date Provider Diagnosis Vini Mendoza MD [address] [facility] [address] [place] [phone] 03/06/2025 Vini Mendoza Plan Of Treatment Next Appt Details Provider Name:Vini herzog, 03/06/2025 01:00:00 PM, [address] [place] [address], Suite [facility], [place], [place], [phone], Provider Name:Vini Moscoso ier, 06/29/2025 07:45:00 AM, [address], [address], [place], [phone], Provider Name:Vini Moscoso ier, 07/06/2025 09:30:00 AM, [address], [address], [place], [phone], Progress Notes * Deacon ROMODOB:[birth year] (84 yo M)Acc No.[id number]:03/06/2025 Progress Notes Patient: Deacon IRVIN Provider: Galina Mendoza MD :1940 A ge:84 Y S ex:Male Date:03/06/2025 Address:[address] [place] [address] MIKE Fernandez [id number] Subjective: * Chief Complaints: * 1 . Follow up appt after blood work. * Medical History: Objective: * Vitals: Assessment: Plan: * Treatment: * * The named appointment provid er may or may not be the originator of this progress note, and it is not deemed complete until electronically signed by the appointment provider. Sign off status: Pending * Provider: Galina Mendoza MD Date: Generated for Meg brenner/Min/Jordenitting on: 09:46 AM EDT
--- OUTSIDE RECORDS SUMMARY | 2025-03-06 09:47 | XMS_ITS | Patient Health Record ---
Author Organization [facility] Address [address] [place] [address] Care Team Providers Care Assistant [employer] Name Role Phone Vini Mendoza MD Primary Care Provider Cedrick Becerra Jr Unavailable [phone] Allergies Allergen (clinical drug ingredient) Drug/Non Drug Allergy documented on EMR Reaction Allergy Type Onset Date Status seasonal (uncoded) Unknown Allergy A ctive Results Component Value Reference Range Notes US abdomen comp w elastograp hy Reviewed date:01/10/2025 12:58:18 PM Interpretation: Performing Lab: Notes/Report: [address] [address] Ultrasound Report Signed Patient: Deacon Romo MR#: [id number] : 1940 Acct:[id number] Age/Sex: 84 / M ADM Date: 01/06/25 Loc: [facility] 473-[address]: Krishna Lemon MD Ordering Physician: Leo Guo MD Date of Service: 01/07/25 Procedure(s): US abdomen comp w elastography Accession Number(s): [id number] cc: Vini Mendoza MD; Leo Guo MD EXAMINATION: US COMPLETE ABDOMEN WITH LIVER ELASTOGRAPHY CLINICAL INFORMATION: Elevated LFTs COMPARISON: Ultrasound abdomen 01/02/2023 TECHNIQUE: Real-time imaging of the abdominal viscera. Noninvasive ultrasound liver fibrosis assessment is performed using [employer] Elast[employer] point quantification shear wave elastography (pSWE) [...] in OV> 01/09/25712 DD/ 9 TD/TT: 01/07/25829 Book Store Associate: LISA Complete Blood Count Auto Di ff Reviewed date:01/10/2025 12:57:13 PM Interpretation: Performing Lab:[facility], [address] [place] [phone] Notes/Report: White Blood Count 6.1 4.8-10.8 X10*3/uL [...] Pathology Reviewed date:01/15/2025 10:51:17 PM Interpretation: Performing Lab:[facility], [address] [place] [phone] Notes/Report: Complete Blood Count Auto Di ff Reviewed date:01/10/2025 12:56:35 PM Interpretation: Performing Lab:[facility], [address] [place] [phone] Notes/Report: White Blood Count 4.9 4.8-10.8 X10*3/uL [...] g Reviewed date:01/10/2025 12:56:52 PM Interpretation: Performing Lab:[address] [address] Notes/Report: Sodium 145 135-145 mmol/L Potassium 3.8 [...] Pathology Reviewed date:01/12/2025 12:57:41 PM Interpretation: Performing Lab:[address] [phone] Notes/Report: Reason For Referral No Information Medications [...] Problem Status W/U Status Risk Notes Problem 916640533 Colon cancer screening (Z12.11) Active confirmed Problem 186572338 Personal history of colonic polyps (Z86.010) Active confirmed Problem Anemia (158513181) Anemia (D64.9) Active confirmed Problem 590021847 Long-term use of aspirin therapy (Z79.82) Active confirmed Problem Chronic gastritis (8493576) Chronic gastritis (K29.50) Active confirmed Problem 683603977 Long-term curren t use of high risk medication other than anticoagulant (Z79.899) Active confirmed Problem 872474193 FH: colon cancer (Z80.0) Active confirmed Problem 87309775 Hypertension, unspecified type (I10) Active confirmed Problem Anemia (861376715) Acute anemia (D64.9) Active confirmed Vital Signs Temperature 97.8 degrees Fahrenheit 11/09/2024 Blood pressure diastolic 01 mm Hg 11/09/2024 Height 69.5 in 11/09/2024 Blood pressure systolic 001 mm Hg 11/09/2024 Weight 193 lbs 11/09/2024 BMI 28.09 kg/m2 11/09/2024 Encounters Encounter Location Date Provider Diagnosis [facility] [place] [address] [place], [place] [id number] 01/10/2025 Cedrick Justin Jr [facility] [address] [place] [phone] 11/09/2024 Cedrick Justin Jr Colon polyps K63.5 ; Anemia D64.9 and Colon cancer screening Z12.11 [facility] [address] [place] [phone] 01/03/2025 Cedrick Justin Jr [facility] [address] [place] [address] 01/08/2025 Cedrickmaikel Justin Jr [facility] [address] [place] [address] 01/12/2025 Cedrick Justin Jr Assessments Encounter Date [...] licona Jr, 03/27/2025 02:15:00 PM, [address], [address], [place], [address], Insurance Providers Payer Name Payer Address Payer Phone Subscriber Number Group Number Insured Name Patient Relationship to Insured Coverage Start Date Coverage End Date [facility] [address] [place], [place] [phone] [id number] DEACON ROMO Self - patient is the insured [employer] [address] [place] [address] [phone] [id number] DEACON ROMO Self - patient is the [...]
--- OUTSIDE RECORDS SUMMARY | 2025-03-06 09:47 | XMS_ITS | Clinical Summary ---
Author Organization [facility] Address [address] [place] [address] Phone Care Team Providers Care Surveyor Helper Name Role Phone Pcp, Unknown Primary Care Provider Unavailabl e Encounters Date Type Department Care Team Description 12/21/2024 Orders Only [facility] [address], [address] [place] [address] ProviderLupe MD from Last 3 Months Social [...] VACCINE (#1) 2024 COVID-19 VACCINE ( - 2024-2 6 season) 2025 HEPATITIS A VACCINES Aged Out [...] Final Result from Last 3 Months Insurance [facility] MEDICARE REPLACEMENT [facility] SUPPLE[facility] MEDICARE REPLACEMENT [employer] MEDICARE SUPPLEMENT [facility] MEDICARE REPLACEMENT [employer] MED[facility] FOR [facility] MEDICARE [facility]PP[facility] REPLAC[facility] [employer] [facility] [employer] MEDICARE SUPPLEMENT Care Teams Surveyor Helper Relationship Specialty Start Date End Date Pcp, Unknown PCP - General 12/21/24 Additional Source Comments The information contained in this document represents components of the legal health record. It is not the complete legal health record.[facility]
--- OUTSIDE RECORDS SUMMARY | 2025-03-06 09:48 | XMS_ITS | Patient Health Record ---
Author Organization Vini Mendoza MD Address [address] [place] [id number] Care Team Providers Care Bowling Alley Manager Name Role Phone Vini Mendoza Primary Care Provider Allergies No Known Allergies Results Component Value Reference Range Notes Hemoglobin A1c Reviewed date:10/21/2024 09:43:33 AM Interpretation: Performing Lab: Notes/Report: Hemoglobin A1c 6.2 Complete Blood Count Auto Di ff Reviewed date:07/04/2024 07:18:28 AM Interpretation:see back 07-01-24 Performing Lab:[facility], [address] [place] [phone] Notes/Report: White Blood Count 7.9 4.8-10.8 X10*3/uL [...] NRBC Abs Auto 0.000 0.0-0.012 X10*3/uL Comprehensive Dickerson. Panel Fa st Reviewed date:06/26/2024 04:58:35 PM Interpretation: Performing Lab:[facility], [address] [place] [phone] Notes/Report: Sodium 141 135-145 mmol/L Potassium 4.8 [...] Panel Reviewed date:06/25/2024 12:29:18 PM Interpretation: Performing Lab:[address] [address] Notes/Report: Triglycerides 138 <150 mg/dL Desirable Triglyceride: [...] (Free>4and<10) Reviewed date:06/25/2024 12:29:08 PM Interpretation: Performing Lab:[address] [address] Notes/Report: PSA,Total (Free>4and<10) 0.67 0.00-4.00 ng/mL A [...] Random Reviewed date:06/25/2024 12:28:59 PM Interpretation: Performing Lab:[address] [address] Notes/Report: Creatinine Urine 225.05 Microalbumin Urine 44.0 Microalbum/Creatinine Ratio Ur 19.5 <30 ug/mg cr Albumin/Creatinine Ratio Reference Ranges: Normal: < 30 ug/mg creatinine Microalbuminuria: 30 - 300 ug/mg creatinine Clinical Albuminuria: > 300 ug/mg creatinine Hemoglobin A1c Reviewed date:06/24/2024 01:15:12 PM Interpretation: Performing Lab:[address] [address] Notes/Report: Hemoglobin A1c % 6.9 <6.0 % [...] average glucose, using the formula of the Z7I-Oplntmy Average Glucose study (ADAG), Diabetes Care, Vol.31,#8, 2007 UA ClnCatch+Micro w/rflx Cul t Reviewed date:06/26/2024 05:02:46 PM Interpretation: Performing Lab:[facility], [address] [place] [phone] Notes/Report: Urine, Clean Catch Color Urine Yellow Appearance Urine Clear PH 5.5 5.0-9.0 Glucose Urine UA Negative Negative mg/dL Urine Blood Negative Negative Specific Mcclave - Urine >= 1.030 1.005-1.025 Urine Protein [...] ff Reviewed date:10/14/2024 12:43:08 PM Interpretation: Performing Lab:[address] [address] Notes/Report: White Blood Count 7.0 4.8-10.8 X10*3/uL [...] Reviewed date:10/21/2024 10:14:21 AM Interpretation:BENJAMIN 10/21 Performing Lab:[facility], [address] [place] [phone] Notes/Report: Iron 20 45-160 mcg/dL Total Iron Binding Capacity 364 228-428 mcg/dL Percent Iron Saturation 5 15-50 % Unsaturated Iron Binding 344 Complete Blood Count Auto Di ff Reviewed date:01/02/2025 01:14:08 PM Interpretation: Performing Lab:[facility], [address] [place] [phone] Notes/Report: White Blood Count 9.6 4.8-10.8 X10*3/uL [...] ff Reviewed date:01/05/2025 03:11:21 PM Interpretation: Performing Lab:[facility], [address] [place] [phone] Notes/Report: White Blood Count 10.7 4.8-10.8 X10*3/uL [...] ff Reviewed date:01/23/2025 12:30:04 PM Interpretation: Performing Lab:[facility], [address] [place] [phone] Notes/Report: White Blood Count 9.6 4.8-10.8 X10*3/uL [...] ff Reviewed date:02/21/2025 11:59:09 AM Interpretation: Performing Lab:[facility], [address] [place] [phone] Notes/Report: White Blood Count 6.3 4.8-10.8 X10*3/uL [...] Panel Reviewed date:02/21/2025 12:42:16 PM Interpretation: Performing Lab:[facility], [address] [place] [phone] Notes/Report: Bilirubin Total 0.8 0.0-1.0 mg/dL Bilirubin Direct 0.3 0.0-0.5 mg/dL Aspartate Amino Transferase 46 5-37 U/L Alanine Aminotransferase 47 0-40 U/L Total Protein 6.2 6.5-8.0 g/dL Albumin Level 3.6 3.5-5.0 g/dL Alkaline Phosphatase 102 39-117 U/L Liver Panel Reviewed date:03/02/2025 12:33:15 PM Interpretation: Performing Lab:[facility], [address] [place] [phone] Notes/Report: Bilirubin Total 1.0 0.0-1.0 mg/dL Bilirubin Direct 0.3 0.0-0.5 mg/dL Aspartate Amino Transferase 41 5-37 U/L Alanine Aminotransferase 30 0-40 U/L Total Protein 6.2 6.5-8.0 g/dL Albumin Level 3.9 3.5-5.0 g/dL Alkaline Phosphatase 100 39-117 U/L Hepatitis A,B,C Profile Reviewed date:03/02/2025 12:33:25 PM Interpretation: Performing Lab:[facility], [address] [place] [phone] Notes/Report: Hepatitis A Antibody IgM Nonreactive Nonreactive [...] ff Reviewed date:07/01/2024 04:25:27 PM Interpretation: Performing Lab:[facility], [address] [place] [phone] Notes/Report: White Blood Count 10.5 4.8-10.8 X10*3/uL [...] PROFILE Reviewed date:07/03/2024 03:27:36 PM Interpretation: Performing Lab:[facility], [address] [place] [phone] Notes/Report: Iron 35 45-160 mcg/dL Total Iron Binding Capacity 346 228-428 mcg/dL Percent Iron Saturation 10 15-50 % Unsaturated Iron Binding 311 Glucose, finger stick Reviewed date:10/21/2024 09:36:02 AM Interpretation: Performing Lab: Notes/Report: Value 124 Glucose, finger stick Reviewed date:11/18/2024 09:14:41 AM Interpretation: Performing Lab: Notes/Report: Value 118 Complete Blood Count Auto Di ff Reviewed date:12/30/2024 01:50:51 PM Interpretation: Performing Lab:[facility], [address] [place] [phone] Notes/Report: White Blood Count 8.8 4.8-10.8 X10*3/uL [...] Panel Reviewed date:12/30/2024 08:57:33 AM Interpretation: Performing Lab:[address] [address] Notes/Report: Bilirubin Total 0.7 0.0-1.0 mg/dL Bilirubin Direct 0.3 0.0-0.5 mg/dL Aspartate Amino Transferase 157 5-37 U/L Alanine Aminotransferase 136 0-40 U/L Total Protein 5.7 6.5-8.0 g/dL Albumin Level 3.2 3.5-5.0 g/dL Alkaline Phosphatase 148 39-117 U/L Complete Blood Count Auto Di ff Reviewed date:02/02/2025 04:51:19 PM Interpretation: Performing Lab:[address] [address] Notes/Report: White Blood Count 6.9 4.8-10.8 X10*3/uL [...] NRBC Abs Auto 0.000 0.0-0.012 X10*3/uL Comprehensive Dickerson. Panel Fa st Reviewed date:02/23/2025 10:06:10 AM Interpretation:02-21-2025 Performing Lab:[facility], [address] [place] [phone] Notes/Report: Sodium 141 135-145 mmol/L Potassium 3.9 [...] ff Reviewed date:12/30/2024 11:59:39 AM Interpretation: Performing Lab:[facility], [address] [place] [phone] Notes/Report: White Blood Count 7.3 4.8-10.8 X10*3/uL [...] B12 Reviewed date:07/03/2024 03:27:05 PM Interpretation: Performing Lab:[facility], [address] [place] [phone] Notes/Report: Vitamin B12 245 200-900 pg/mL NORMAL 200-900 PG/ML INDETERMINATE 160-199 PG/ML DEFICIENT < 160 PG/ML Folate Reviewed date:07/03/2024 03:27:13 PM Interpretation: Performing Lab:[facility], [address] [place] [phone] Notes/Report: Folate 11.5 > or = 4.0 ng/mL Reference Values: > or = 4.0 ng/mL < 4.0 ng/mL suggests folate deficiency Methotrexate, aminopterin and folinic acid (leucovorin) are chemotherapeutic agents whose molecular structures are similar to folate; therefore, the Hydrogen Treater folate assay cannot be used for patients using these drugs. Complete Blood Count Auto Di ff Reviewed date:12/22/2024 12:43:17 PM Interpretation: Performing Lab:[facility], [address] [place] [phone] Notes/Report: White Blood Count 17.2 4.8-10.8 X10*3/uL [...] Panel Reviewed date:12/22/2024 01:05:46 PM Interpretation: Performing Lab:[facility], [address] [place] [phone] Notes/Report: Sodium 139 135-145 mmol/L Potassium 4.4 [...] Panel Reviewed date:12/29/2024 02:32:21 PM Interpretation: Performing Lab:[facility], [address] [place] [phone] Notes/Report: Sodium 141 135-145 mmol/L Potassium 5.2 [...] date:01/10/2025 03:43:11 PM Interpretation: Performing Lab: Notes/Report: [address] [address] Ultrasound Report Signed Patient: Deacon Romo MR#: [id number] 682 : 1940 Acct:[id number] Age/Sex: 84 / M ADM Date: 12/30/24 Loc: HO.US Attending Dr: Vini Mendoza MD Ordering Physician: Thomas Araujo MD Date of Service: 12/30/24 Procedure(s): US renal BI Accession Number(s): [id number] cc: Thomas Araujo MD; Vini Mendoza MD [...] 01/10/25 1319 DD/ 1253 TD/TT: 12/30/24 [address]: [place] [address] Ultrasound Report Signed Patient: Ana María Romo MR#: [id number] 682 : 1940 Acct:[id number] Age/Sex: 84 / M ADM Date: 12/30/24 Loc: HO.US Attending Dr: Vini Mendoza MD Ordering Physician: Thomas Araujo MD Date of Service: 12/30/24 Procedure(s): US renal BI Accession Number(s): [id number] cc: Ramsey Araujo MD; Vini Mendoza MD [...] 01/10/25 1319 DD/ 1253 TD/TT: 12/30/24 1301 [address] Artisan: Complete Blood Count Auto Di ff Reviewed date:01/07/2025 04:59:35 PM Interpretation: Performing Lab:[facility], [address] [place] [phone] Notes/Report: White Blood Count 8.5 4.8-10.8 X10*3/uL [...] INR Reviewed date:01/06/2025 08:57:34 AM Interpretation: Performing Lab:[facility], [address] [place] [phone] Notes/Report: Prothrombin Time 14.1 10.9-12.4 [employer] [...] OBSX1 Reviewed date:01/06/2025 04:35:49 PM Interpretation: Performing Lab:[facility], [address] [place] [address] Notes/Report: OBS1 POSITIVE NEGATIVE Liver Panel Reviewed date:01/06/2025 04:38:51 PM Interpretation: Performing Lab:[facility], [address] [place] [phone] Notes/Report: Bilirubin Total 1.3 0.0-1.0 mg/dL Bilirubin Direct 0.5 0.0-0.5 mg/dL Aspartate Amino Transferase 62 5-37 U/L Alanine Aminotransferase 133 0-40 U/L Total Protein 6.2 6.5-8.0 g/dL Albumin Level 3.7 3.5-5.0 g/dL Alkaline Phosphatase 190 39-117 U/L Basic Metabolic Panel Reviewed date:01/06/2025 04:51:22 PM Interpretation: Performing Lab:[address] [address] Notes/Report: Sodium 141 135-145 mmol/L Potassium 4.6 [...] Magnesium Reviewed date:01/06/2025 04:35:59 PM Interpretation: Performing Lab:[facility], [address] [place] [phone] Notes/Report: Magnesium 1.8 1.6-2.6 mg/dL Glucose, Whole Blood Reviewed date:01/06/2025 04:35:38 PM Interpretation: Performing Lab:[facility], [address] [place] [phone] Notes/Report: Glucose, Whole Blood 93 60-115 mg/dL METER # : [id number] Type and Screen Reviewed date:01/07/2025 04:52:18 PM Interpretation: Performing Lab:[facility], [address] [place] [phone] Notes/Report: Results at Issue Units as of [...] Cells Reviewed date:01/07/2025 04:52:26 PM Interpretation: Performing Lab:[facility], [address] [place] [phone] Notes/Report: Red Blood Cells [id number] [facility] Red Blood Cells TRANSFUSED 01/07/25 0807 Red Blood Cells [id number] [facility] Red Blood Cells TRANSFUSED 01/06/25 1118 Glucose, Whole Blood Reviewed date:01/07/2025 04:52:34 PM Interpretation: Performing Lab:[facility], [address] [place] [phone] Notes/Report: Glucose, Whole Blood 83 60-115 mg/dL METER # : [id number] Glucose, Whole Blood Reviewed date:01/07/2025 04:51:39 PM Interpretation: Performing Lab:[facility], [address] [place] [phone] Notes/Report: Glucose, Whole Blood 98 60-115 mg/dL METER # : [id number] Complete Blood Count no Diff Reviewed date:01/07/2025 04:54:34 PM Interpretation: Performing Lab:[facility], [address] [place] [phone] Notes/Report: White Blood Count 5.7 4.8-10.8 X10*3/uL [...] Panel Reviewed date:01/07/2025 04:52:10 PM Interpretation: Performing Lab:[address] [address] Notes/Report: Bilirubin Total 1.7 0.0-1.0 mg/dL Bilirubin Direct 0.5 0.0-0.5 mg/dL Aspartate Amino Transferase 43 5-37 U/L Alanine Aminotransferase 91 0-40 U/L Total Protein 5.2 6.5-8.0 g/dL Albumin Level 3.0 3.5-5.0 g/dL Alkaline Phosphatase 152 39-117 U/L Basic Metabolic Panel Reviewed date:01/07/2025 04:54:53 PM Interpretation: Performing Lab:[address] [address] Notes/Report: Sodium 139 135-145 mmol/L Potassium 3.8 [...] Blood Reviewed date:01/07/2025 04:53:48 PM Interpretation: Performing Lab:[facility], [address] [place] [phone] Notes/Report: Glucose, Whole Blood 91 60-115 mg/dL METER # : [id number] US abdomen comp w elastograp hy Reviewed date:01/09/2025 05:55:24 PM Interpretation: Performing Lab: Notes/Report: [address] [address] Ultrasound Report Signed Patient: Deacon Romo MR#: [id number] 682 : 1940 Acct:[id number] Age/Sex: 84 / M ADM Date: 01/06/25 Loc: [facility] 473-[address]: Krishna Lemon MD Ordering Physician: Leo Guo MD Date of Service: 01/07/25 Procedure(s): US abdomen comp w elastography Accession Number(s): [id number] cc: Vini Mendoza MD; Leo Guo MD [...] 01/09/25 07 DD/ 0800 TD/TT: 01/07/25 08[address]: [place] [address] Ultrasound Report Signed Patient: Ana María Romo MR#: [id number] 682 : 1940 Acct:[id number] Age/Sex: 84 / M ADM Date: 01/06/25 Loc: [facility] 473-[address]: Suzan Lemon MD Ordering Physician: Leo Guo MD Date of Service: 01/07/25 Procedure(s): US abd omen comp w elastography Accession Number(s): [id number] cc: Vini Mendoza MD; Leo Guo MD [...] 01/09/25 0713 DD/ 0800 TD/TT: 01/07/25 0830 [address] Artisan: [facility] [place] XR chest 1V Reviewed date:01/07/2025 04:49:50 PM Interpretation: Performing Lab: Notes/Report: [address] [address] XRay Report Signed Patient: Deacon Romo MR#: [id number] 682 : 1940 Acct:[id number] Age/Sex: 84 / M ADM Date: 01/06/25 [facility] [place] [facility] [place]: Krishna Lemon MD Ordering Physician: Krishna Lemon MD Date of Service: 01/07/25 Procedure(s): XR chest 1V Accession Number(s): [id number] cc: Vini Mendoza MD; Krishna Lemon MD [...] 01/07/25 1147 DD/ 1146 TD/TT: 01/07/25 1146 [address]isan: [address] [address] XRay Report Signed Patient: Ana María Romo MR#: [id number] 682 : 1940 Acct:[id number] Age/Sex: 84 / M ADM Date: 01/06/25 Loc: [facility] [place] [facility] [place]: Suzan Lemon MD Ordering Physician: Krishna Lemon MD Date of Service: 01/07/25 Procedure(s): XR chest 1V Accession Number(s): [id number] cc: Vini Mendoza MD; Krishna Lemon MD [...] 01/07/25 1147 DD/ 1146 TD/TT: 01/07/25 1146 [address] Artisan: Glucose, Whole Blood Reviewed date:01/07/2025 04:50:31 PM Interpretation: Performing Lab:[facility], [address] [place] [phone] Notes/Report: Glucose, Whole Blood 123 60-115 mg/dL METER # : [id number] Glucose, Whole Blood Reviewed date:01/07/2025 04:49:08 PM Interpretation: Performing Lab:[facility], [address] [place] [phone] Notes/Report: Glucose, Whole Blood 123 60-115 mg/dL METER # : [id number] Glucose, Whole Blood Reviewed date:01/08/2025 02:53:57 PM Interpretation: Performing Lab:[facility], [address] [place] [phone] Notes/Report: Glucose, Whole Blood 135 60-115 mg/dL METER # : [id number] Complete Blood Count no Diff Reviewed date:01/08/2025 02:53:57 PM Interpretation: Performing Lab:[facility], [address] [place] [phone] Notes/Report: White Blood Count 5.8 4.8-10.8 X10*3/uL [...] Panel Reviewed date:01/08/2025 02:53:57 PM Interpretation: Performing Lab:[facility], [address] [place] [address] Notes/Report: Sodium 140 135-145 mmol/L Potassium 4.1 [...] Blood Reviewed date:01/08/2025 02:53:57 PM Interpretation: Performing Lab:[facility], [address] [place] [phone] Notes/Report: Glucose, Whole Blood 116 60-115 mg/dL METER # : [id number] Glucose, Whole Blood Reviewed date:01/08/2025 02:53:57 PM Interpretation: Performing Lab:[facility], [address] [place] [phone] Notes/Report: Glucose, Whole Blood 134 60-115 mg/dL METER # : [id number] Glucose, Whole Blood Reviewed date:01/09/2025 05:55:24 PM Interpretation: Performing Lab:[facility], [address] [place] [phone] Notes/Report: Glucose, Whole Blood 99 60-115 mg/dL METER # : [id number] Glucose, Whole Blood Reviewed date:01/09/2025 05:55:24 PM Interpretation: Performing Lab:[facility], [address] [place] [phone] Notes/Report: Glucose, Whole Blood 137 60-115 mg/dL METER # : [id number] Complete Blood Count Auto Di ff Reviewed date:01/09/2025 11:56:45 AM Interpretation: Performing Lab:[facility], [address] [place] [phone] Notes/Report: White Blood Count 6.1 4.8-10.8 X10*3/uL [...] Blood Reviewed date:01/09/2025 05:50:19 PM Interpretation: Performing Lab:[facility], [address] [place] [phone] Notes/Report: Glucose, Whole Blood 100 60-115 mg/dL METER # : [id number] Pathology Reviewed date:01/11/2025 02:08:52 PM Interpretation: Performing Lab:[facility], [address] [place] [phone] Notes/Report: ----- Name: RasheedaNury roldan hayden Age/Sex: 84/M : 1940 Unit#: [id number] Attend Dr: Hal Monroy Re01/06/25 Status : DIS IN Location: [facility] 473-1 Disch: 01/10/25 ----- SPEC : [id number] RECD : 01/09/25-1530 STATUS: STANISLAW CARDOZO NUM: [id number] DEISY: 01/09/25-[address] [facility] [address]: Leo Guo MD ENTERED: 01/09/25- [...] Nury Romo Age/Sex: 84/M : 1940 Unit#: [id number] [facility] Re01/06/25 Status : DIS IN Location: [facility] 473-1 Disch: 01/10/25 ----- SPEC : [id number] RECD : 01/09/25-1530 STATUS: STANISLAW ANDERSEN NUM: [id number] DEISY: 01/09/25-[address] [facility] [address]: Leo Guo MD ENTERED: 01/09/25-15 [...] Vini Mendoza MD [facility] [address] [facility] [address] [place] [address] Krishna Lemon MD [address] [place] [address] Leo Guo MD [facility] [address] [place], [place] [phone] ----- Signed (signature on file) Naty Younger MD 01/11/25 0823 ----- END OF REPORT Hold Green Gel Reviewed date:01/09/2025 11:57:28 AM Interpretation: Performing Lab:[facility], [address] [place] [address] Notes/Report: Hold Green Gel See Note Specimen held untested for 24 hours; Call to request Chemistry testing. Glucose, Whole Blood Reviewed date:01/09/2025 05:49:26 PM Interpretation: Performing Lab:[facility], [address] [facility] [place] [address] Notes/Report: Glucose, Whole Blood 98 60-115 mg/dL METER # : [id number] Glucose, Whole Blood Reviewed date:01/09/2025 05:50:11 PM Interpretation: Performing Lab:[facility], [address] [place] [phone] Notes/Report: Glucose, Whole Blood 122 60-115 mg/dL METER # : [id number] Glucose, Whole Blood Reviewed date:01/10/2025 06:01:42 PM Interpretation: Performing Lab:[facility], [address] [place] [phone] Notes/Report: Glucose, Whole Blood 139 60-115 mg/dL METER # : [id number] Complete Blood Count Auto Di ff Reviewed date:01/10/2025 06:02:14 PM Interpretation: Performing Lab:[facility], [address] [place] [phone] Notes/Report: White Blood Count 4.9 4.8-10.8 X10*3/uL [...] haydee Reviewed date:01/10/2025 06:02:14 PM Interpretation: Performing Lab:[facility], [address] [place] [phone] Notes/Report: Sodium 145 135-145 mmol/L Potassium 3.8 [...] Blood Reviewed date:01/10/2025 06:02:14 PM Interpretation: Performing Lab:[facility], [address] [place] [phone] Notes/Report: Glucose, Whole Blood 97 60-115 mg/dL METER # : [id number] Pathology Reviewed date:01/11/2025 02:12:24 PM Interpretation: Performing Lab:[facility], [address] [place] [phone] Notes/Report: ----- Name: Nury Romo Age/Sex: 84/M : 1940 Unit#: [id number] Attend Dr: Hal Monroy Re01/06/25 Status : DIS IN Location: [address] Disch: 01/10/25 ----- SPEC : [id number] REC STATUS: STANISLAW REChidi NUM: [id number] DEISY: 01/10/25-[address] [facility] [address]: Cedrick Butt MD ENTERED: 01/10/25-13 13 SP TYPE: Surgical OTHR DR: Hla Monroy Glen P MD ORDERED: HE Stain/3, [...] clinical laboratory testing. Copies To: Hal Monroy [address] [place] [address] [email or web address] CONTINUED ON NEXT PAGE ----- Name: Nury Romo Age/Sex: 84/M : 1940 Unit#: [id number] Attend Dr: Hal Monroy Re01/06/25 Status : DIS IN Location: [facility] 473-1 Disch: 01/10/25 ----- SPEC : [id number] RECD : 01/10/25-130 STATUS: STANISLAW CARDOZO NUM: [id number] DEISY: 01/10/25-[address] [facility] [address]: Cedrick Butt MD ENTERED: 01/10/25-13 13 SP TYPE: Surgical OTHR DR: Hal Monroy Glen P MD ORDERED: JENN Stain/3, Gross Micro L4 Copies To: (Continued) Vini Mendoza MD [facility] [address] [place] [address] Cedrick Butt MD [facility] [address] [place], [place] [phone] ----- Signed (signature on file) Nichole Durant 01/11/25 1301 ----- END OF REPORT Glucose, Whole Blood Reviewed date:01/10/2025 03:32:59 PM Interpretation: Performing Lab:[facility], [address] [place] [phone] Notes/Report: Glucose, Whole Blood 95 60-115 mg/dL METER # : [id number] Reason For Referral Reason Iron deficiency anem [...] twice a day for 90 days Active Fits.meTouch Ultra Test TEST BLOOD GLUCOSE T WICE A DAY for 50 Active Finasteride 5 MG 1 tablet Orally Once a day for 90 days Active Fits.meTouch Delica Lancing Dev as directed for 50 [...] 02/11/2015 Administered pt herrera d vaccine at [facility] on [facility] Fluarix Quadrivalent IM Intramuscular 02/11/2016 Administered Shingles Unknown 03/29/2009 Administered Fluarix Quadrivalent IM Intramuscular 02/23/2017 Administered Shingrix IM Intramuscular 02/08/2018 Administered pt wa given the vaccine at [facility] on [facility]. Flu Vaccine Unknown 02/08/2018 Administered pt was give n the vaccine at [facility] on [facility]. Shingrix IM Intramuscular 05/17/2018 Administered pt was given the vaccine at [facility] in [place]. PPSV23 (Pnemovax) IM Intramuscular 09/10/2018 Administered Fluarix [...] Problem Status W/U Status Risk Notes Problem 28394397 Prostatism (N40.0) Active confirmed Problem 202536205 Asthmatic bronch itis (J45.909) Active confirmed Problem Unstable angina (0369548) Unstable angina (I20.0) Active confirmed Problem 42556829 Essential hypert ension (I10) Active confirmed Problem 84545408 Type 2 diabetes mellitus without complication (E11.9) Active confirmed Problem 581542675 Low HDL (under 4 0) (E78.6) Active confirmed Problem Biochemically recurrent prostate cancer (disorder) (10875406926922 1) Rising PSA level (R97.2) Active confirmed Problem Irregular heart beat (460180729) Irregular heart beat (I49.9) Active confirmed Problem Iron deficiency anemia (31119140) Iron deficiency anemia (D50.9) Active confirmed Problem 56503557 Sleep apnea, unspecified type (G47.30) Active confirmed Problem 466461388 Pure hypercholesterolemia (E78.00) Active confirmed Problem 46008553 Seasonal allergi c rhinitis due to pollen (J30.1) Active confirmed Problem 963912938 Adenomatous poly p of colon, unspecified part of colon (D12.6) Active confirmed Problem 292528306 BMI 32.0-32.9,ad ult (Z68.32) Active confirmed Problem 22090230 Bilateral hearin g loss, unspecified hearing loss [...] Vini Mendoza MD [address] [place] [address] [phone] 06/24/2024 Vini Mendoza Blood tests for rout ine general physical examination Z00.00 ; Essential hypertension I10 ; Type 2 diabetes mellitus without complication E11.9 ; Pure hypercholesterolemia E78.00 and Prostatism N40.0 Vini Mendoza MD [address] [place] [address] [id number] 10/14/2024 Vini Mendoza Iron deficiency E61. 1 Vini Mendoza MD [address] [place] [address] [id number] 01/02/2025 Vini Mendoza Rectal bleed K62.5 Vini Mendoza MD [address] [place] [address] [id number] 01/05/2025 Vini Mendoza Anemia D64.9 Vini Mendoza MD [address] [place] [address] [id number] 01/23/2025 Vini Mendoza Anemia D64.9 Vini Mendoza MD [address] [place] [address] [id number] 02/21/2025 Vini Mendoza Iron deficiency anem ia D50.9 and Elevated liver function tests R79.89 Vini Mendoza MD [address] [place] [address] [id number] 03/02/2025 iVni Mendoza Elevated liver funct ion tests R79.89 Vnii Mendoza MD [address] [place] [address] [id number] 04/15/2024 Vini Mendoza Type 2 diabetes arabella itus without complication E11.9 and Newly recognized murmur R01.1 Vini Mendoza MD [address] [place] [address] [id number] 06/10/2024 Vini Mendoza Viral URI J06.9 Vini Mendoza MD [address] [place] [address] [id number] 07/01/2024 Vini Mendoza Mild anemia D64.9 ; Annual physical exam Z00.00 ; Type 2 diabetes mellitus without complication E11.9 ; Pure hypercholesterolemia E78.00 ; Prostatism N40.0 ; Colon cancer screening Z12.11 and Depression screening Z13.31 Vini Mendoza MD [address] [place] [address] [id number] 07/08/2024 Vini Mendoza Iron deficiency E61. 1 Vini Mendoza MD [address] [place] [address] [id number] 10/21/2024 Vini Mendoza Type 2 diabetes arabella itus without complication E11.9 ; Iron deficiency anemia D50.9 and Chest pain R07.9 Vini Mendoza MD [address] [place] [address] [id number] 11/18/2024 Vini Mendoza Type 2 diabetes arabella itus without complication E11.9 and Chest pain R07.9 Vini Mendoza MD [address] [place] [address] [id number] 12/05/2024 Vini Mendoza Unstable angina I20. 0 Vini Mendoza MD [address] [place] [address] [id number] 12/29/2024 Vini Mendoza Elevated LFTs R79.89 ; Rectal bleeding K62.5 ; History of atrial fibrillation Z86.79 and Elevated liver enzymes R74.8 Vini Mendoza MD [address] [place] [address] [id number] 02/02/2025 Vini Mendoza Anemia D64.9 ; Weakn ess R53.1 and Encounter for administration of vaccine Z23 Vini Mendoza MD [address] [place] [address] [id number] 02/23/2025 Vini Mendoza Type 2 diabetes arabella itus without complication E11.9 ; Rectal bleeding K62.5 ; Pure hypercholesterolemia E78.00 ; Elevated LFTs R79.89 and Anemia D64.9 Vini Mendoza MD [address] [place] [address] [id number] 05/17/2024 Vini Mendoza MD [address] [place] [address] [id number] 07/03/2024 Vini Mendoza MD [address] [place] [address] [id number] 07/08/2024 Vini Mendoza MD [address] [place] [address] [id number] 07/19/2024 Vini Mendoza Colon cancer screeni ng Z12.11 Vini Mendoza MD [address] [place] [address] [id number] 07/19/2024 Vnii Mendoza MD [address] [place] [address] [id number] 12/19/2024 Vini Mednoza MD [address] [place] [address] [id number] 12/30/2024 Vini Mendoza Elevated LFTs R79.89 and Rectal bleeding K62.5 Vini Mendoza MD [address] [place] [address] [id number] 12/30/2024 Vini Mendoza MD [address] [place] [address] [id number] 01/12/2025 Vini Mendoza MD [address] [place] [address] [id number] 01/12/2025 Vini Mendoza Pure hypercholestero lemia E78.00 Vini Mendoza MD [address] [place] [address] [id number] 01/16/2025 Vini Mendoza MD [address] [place] [address] [id number] 02/03/2025 Vini Mendoza MD [address] [place] [address] [id number] 02/21/2025 Vini Mendoza MD [address] [place] [address] [id number] 02/24/2025 Vini Mendoaz MD [address] [place] [address] [id number] 02/24/2025 Vini Mendoza Assessments Encounter Date Diagnosis [...] R01.1) pending diagnostic testing, order faxed to [facility] CS dept 06/10/2024 [...] and to try nitro/ order faxed to [facility] CS dept 12/05/2024 Unstable angina (ICD -10 - I20.0) will send by ambulance down to [facility] Total time spent on the date [...] Name:Vini Moscoso ier, 03/06/2025 01:00:00 PM, [address] [facility], [address], [place], [place], [phone], Provider Name:Vini Moscoso ier, 06/29/2025 07:45:00 AM, [address] [facility], [address], [place], [phone], Provider Name:Vini Moscoso ier, 07/06/2025 09:30:00 AM, [address] [facility], [address], [place], [phone], Insurance Providers Payer Name Payer Address Payer Phone Subscriber Number Group Number Insured Name Patient Relationship to Insured Coverage Start Date Coverage End Date [employer] MED[employer]ARE ADVANTAGE [address] [place], [place] [id number] Deacon Romo Self - patient is the insured [facility] [employer] LIFE [address] [place] [phone] [id number] Deacon Romo Self - patient is the insured MEDICARE NHIC [address] [place] [address] [id number] Deacon Romo Self - patient is the insured Medical (General) History Medical History History ICD Code colonoscopy 07/2014 repeat in 3 years; colonoscopy 01/02/16 w/ Dr. Butt; colonoscopy done 02/11/[address] Butt, no futher testing needed.01/26/24 Colonoscopy, pending biopsy01/10/25 colonoscopy pending path
== END 2025-03-06 08:53 | disposition home or self-care (01) ==
LOC: HO.US 08:52
PROVIDERS: PCP Internal Medicine; Visit Provider Internal Medicine
DX: R74.8 Abnormal levels of other serum enzymes (principal)
CPT/HCPCS: 76700

== ENCOUNTER → 2025-03-06 09:27 | Outpatient (BNV) | payer MEDICARE, OTHER, SELFPAY | PROVIDERS: PCP Internal Medicine; Visit Provider Nuclear Medicine | DX: R94.5 Abnormal results of liver function studies (principal) | CPT/HCPCS: 76700 ==

== ENCOUNTER 2025-05-01 10:00 | Outpatient (RCR) | payer MEDICARE, OTHER, SELFPAY | END 2025-05-03 06:16 | disposition home or self-care (01) | LOC: HO.CR 10:00 | PROVIDERS: PCP Internal Medicine; Visit Provider Thoracic Surgery (Cardiothoracic Vascular Surgery) | DX: Z95.1 Presence of aortocoronary bypass graft (principal) | CPT/HCPCS: 93797; 93798 ==

== ENCOUNTER 2025-05-05 10:56 | Outpatient (REF) | payer MEDICARE, OTHER, SELFPAY ==
[2025-05-05 12:11] LABS: Blood Urea Nitrogen 12 mg/dL (9-16); Estimated Glomerular Filt Rate > 60
== END 2025-05-05 10:57 | disposition home or self-care (01) ==
LOC: HO.LNP 10:56
PROVIDERS: Visit Provider Internal Medicine
DX: Z01.812 Encounter for preprocedural laboratory examination (principal)
CPT/HCPCS: 82565; 84520

== ENCOUNTER 2025-05-08 07:16 | Outpatient (REF) | payer MEDICARE, OTHER, SELFPAY ==
--- OUTSIDE RECORDS SUMMARY | 2024-01-26 05:00 | XMS_ITS ---
Author Organization [facility] Address [address] [place] [address] [place] [id number] Care Team Providers Care Ticketing Clerk Name Role Phone Vini Mendoza MD Primary Care Provider Jennifer Justin Jr, Cedrick Unavailable [phone] REASON FOR VISIT screening Encounters Encounter Location Date Provider Diagnosis [facility] [address] [place] [id number] 01/26/2024 Cedrick Justin Jr Colon cancer screening Z12.11 ; Family history of colon cancer Z80.0 and Colon polyps K63.5 Assessments Encounter Date Diagnosis (ICD Code) Assessment Notes Treatment Notes Treatment Clinical Notes Section Notes 01/26/2024 Colon cancer screening (ICD-10 - Z12.11) 01/26/2024 Family history of colon cancer (ICD-10 - Z80.0) 01/26/2024 Colon polyps (ICD-10 - K63.5) Plan Of Treatment Next Appt Details Provider Name:Cedrick licona Jr, 03/28/2026 09:40:00 AM, [address] [place] [address], [address], [place], [phone], Progress Notes * TOMEKA OLIVIERDOB:[birth year] (84 yo M)Acc No.[id number]:01/26/2024 COLON WITH MAC Patient: TOMEKA IRVIN Provider: Jerica Justin MD :1940 A ge:83 Y S ex:Male Date:01/26/2024 Address:[address] [place] [address] [id number] Pcp:Vini Mendoza MD Subjective: * Chief Complaints: * S creening Assessment: * Assessment: 1. C olon cancer screening - Z12.11 (Primary) 2 . F amily history of colon cancer - Z80.0 3 . C olon polyps - K63.5 Plan: * Procedure Codes: 4 5385 LESION REMOVAL [id number] LESION REMOVE COLONOSCOPY, Modifiers: 59 31225 COLONOSCOPY AND BIOPSY, Modifiers: 59 0529F INTRVL 3+YRS PTS CLNSCP DOCD Billing Information: * Procedure Codes: 85040 LESION REMOVAL COLONOSCOPY. 32144 LESION REMOVE COLONOSCOPY. Modifiers: 59 08373 COLONOSCOPY AND BIOPSY. Modifiers: 59 0529F INTRVL 3+YRS PTS CLNSCP DOCD. * The named appointment provid er may or may not be the originator of this progress note, and it is not deemed complete until electronically signed by the appointment provider. Sign off status: Pending * Provider: Jerica Justin MD Date: 0 01/26/2024 Generated for Meg brenner/Min/oJrdenitting on: 07/09/2024 07:19 AM EST
--- OUTSIDE RECORDS SUMMARY | 2025-01-10 08:00 | XMS_ITS ---
Author Organization [facility] Address [address] [facility] [address] [place] [address] Care Team Providers Care School Secretary Name Role Phone Vini Mendoza MD Primary Care Provider Jennifer Justin Jr, Cedrick Blank REASON FOR VISIT anemia Medications Medication SIG (Take, Route, Frequency, Duration) Notes Start Date End Date Status Metoprolol Succinate ER 50 MG Tablet Extended Release 24 Hour 1 tablet Orally Once a day Active Aspir-Low 81 MG Tablet Delayed Release 1 tablet Orally Once a day; Duration: 30 day(s) Active Flonase 50 MCG/ACT Suspension 1 spray in each nostril Nasally PRN Active Atorvastatin Calcium 20mg Tablet 1/2 tablet Orally Once a day Active Valsartan-hydroCHLOROthiazi de 320-12.5 MG Tablet 1/2 tablet Orally Once a day Active Singulair 10 MG Tablet 1 tablet Orally O nce a day Active metFORMIN HCl 500 MG Tablet 2 TABLETS Or ally Twice a day Active Encounters Encounter Location Date Provider Diagnosis [facility] [address] [place] [id number] 01/10/2025 Cedrick Justin Jr Plan Of Treatment Next Appt Details Provider Name:Cedrick licona Jr, 03/28/2026 09:40:00 AM, [address] [facility] [address], [address], [place], [address], Progress Notes * TOMEKA OLIVIERDOB:[birth year] (84 yo M)Acc No.[id number]:01/10/2025 COLON WITH MAC Patient: Galina TOMEKA LAZARO Provider: Jerica Justin MD :1940 A ge:84 Y S ex:Male Date:01/10/2025 Address:[address] [place] [address], [place] [id number] Pcp:Vini Mendoza MD Subjective: * Chief Complaints: * A nemia * Medications: T akingValsartan-hydroCHLOROthiazide 320-12.5 MG Tablet 1/2 tablet Orally Once a day Atorvastatin Calcium 20mg Tablet 1/2 tablet Orally Once a day metFORMIN HCl 500 MG Tablet 2 TABLETS Orally Twice a day Singulair 10 MG Tablet 1 tablet Orally Once a day Metoprolol Succinate ER 50 MG Tablet Extended Release 24 Hour 1 tablet Orally Once a day Flonase 50 MCG/ACT Suspension 1 spray in each nostril Nasally PRN Aspir-Low 81 MG Tablet Delayed Release 1 tablet Orally Once a day Taking Valsartan-hydroCHLOROthiazide 320-12.5 MG Tablet 1/2 tablet Orally Once a day Taking Atorvastatin Calcium 20mg Tablet 1/2 tablet Orally Once a day Taking metFORMIN HCl 500 MG Tablet 2 TABLETS Orally Twice a day Taking Singulair 10 MG Tablet 1 tablet Orally Once a day Taking Metoprolol Succinate ER 50 MG Tablet Extended Release 24 Hour 1 tablet Orally Once a day Taking Flonase 50 MCG/ACT Suspension 1 spray in each nostril Nasally PRN Taking Aspir-Low 81 MG Tablet Delayed Release 1 tablet Orally Once a day * The named appointment provid er may or may not be the originator of this progress note, and it is not deemed complete until electronically signed by the appointment provider. Sign off status: Pending * Provider: Jerica Justin MD Date: 0 01/10/2025 Generated for Meg brenner/Min/Jordenitting on: 1 07/09/2024 07:20 AM EST
--- OUTSIDE RECORDS SUMMARY | 2025-02-21 03:15 | XMS_ITS ---
Author Organization Vini Mendoza MD Address [address] [place] [address] [phone] Care Team Providers Care Concrete Paving Supervisor Name Role Phone Vini Mendoza Primary Care Provider Results Component Value Reference Range Notes Complete Blood Count Auto Di ff Reviewed date:02/21/2025 11:59:09 AM Interpretation: Performing Lab:[facility], [address] [place] [phone] Notes/Report: White Blood Count 6.3 4.8-10.8 X10*3/uL Red Blood Count 4.08 4.60-5.80 X10*6/uL Hemoglobin 9.6 14.0-18.0 g/dl Hematocrit 32.4 42.0-52.0 % Mean Corpuscular Volume 79.4 80.0-98.0 fL Mean Corpuscular Hemoglobin 23.5 27.0-33.0 pg Mean Corpuscular HGB Conc 29.6 31.0-36.0 g/dl Red Cell Distribution Width 19.9 11.0-16.0 % Platelet Count 319 160-400 X10*3/uL Mean Platelet Volume 11.9 9.4-12.4 fL Neutrophils Percent Auto 53.5 45-73 % Imm Gran Pct Auto 0.2 0.0-0.4 % Lymphocytes Percent Auto 30.8 20-40 % Monocytes Percent Auto 10.7 2-11 % Eosinophils Percent Auto 4.0 0-4 % Basophils Percent Auto 0.8 0-2 % NRBC Pct Auto 0.0 0.0-0.2 /100WBC Neutrophils Absolute Auto 3.4 2.0-8.3 x10*3/u L Imm Gran Abs Auto 0.01 0.00-0.03 X10*3/uL Lymphocytes Absolute Auto 1.9 1.2-4.9 X10*3/u L Monocytes Absolute Auto 0.7 0.1-1.2 X10*3/uL Eosinophils Absolute Auto 0.3 0.0-0.4 X10*3/u L Basophils Absolute Auto 0.1 0.0-0.2 X10*3/uL NRBC Abs Auto 0.000 0.0-0.012 X10*3/uL Liver Panel Reviewed date:02/21/2025 12:42:16 PM Interpretation: Performing Lab:[facility], [address] [place] [phone] Notes/Report: Bilirubin Total 0.8 0.0-1.0 mg/dL Bilirubin Direct 0.3 0.0-0.5 mg/dL Aspartate Amino Transferase 46 5-37 U/L Alanine Aminotransferase 47 0-40 U/L Total Protein 6.2 6.5-8.0 g/dL Albumin Level 3.6 3.5-5.0 g/dL Alkaline Phosphatase 102 39-117 U/L REASON FOR VISIT liver and CBC Encounters Encounter Location Date Provider Diagnosis Vini Mendoza MD [address] [place] [address] Drive [address] [place], [place] [phone] 02/21/2025 Vini Mendoza Iron deficiency anemia D50.9 and Elevated liver function tests R79.89 Assessments Encounter Date Diagnosis (ICD Code) Assessment Notes Treatment Notes Treatment Clinical Notes Section Notes 02/21/2025 Iron deficiency anemia (ICD-10 - D50.9) 02/21/2025 Elevated liver function tests (ICD-10 - R79.89) Plan Of Treatment Next Appt Details Provider Name:Vini Moscoso ier, 06/29/2025 07:45:00 AM, [address] [place] [address], [address], [place], [place], [phone], Provider Name:Vini Moscoso ier, 07/06/2025 09:30:00 AM, [address] [place] [address], [address], [place], [place], [phone], Progress Notes * Deacon ROMODOB:[birth year] (84 yo M)Acc No.[id number]:02/21/2025 Progress Note Patient: Deacon IRVIN Provider: Galina Mendoza MD :1940 A ge:84 Y S ex:Male Date:02/21/2025 Address:[address] [place] [address] [phone] Subjective: * Chief Complaints: * 1 . liver and CBC. * Medical History: Objective: * Vitals: Assessment: * Assessment: 1. I keny deficiency anemia - D50.9 (Primary) 2 . E levated liver function tests - R79.89 Plan: * Treatment: 2. E levated liver function tests L AB: Liver Panel (Collection Date & Time - 02/21/2025 08:15 AM) * Procedure Codes: 3 6415 VENIPUNCT, ROUTINE* * * The named appointment provid er may or may not be the originator of this progress note, and it is not deemed complete until electronically signed by the appointment provider. Sign off status: Pending * Provider: Galina Mendoza MD Date: 0 02/21/2025 Generated for Meg brenner/Min/eTransmitting on: 1 07/09/2024 07:19 AM EST
--- OUTSIDE RECORDS SUMMARY | 2025-02-23 04:15 | XMS_ITS ---
Author Organization Vini Mendoza MD Address [address] [place] [address] [phone] Care Team Providers Care Ip Architect Name Role Phone Vini Mendoza Primary Care Provider Allergies No Known Allergies REASON FOR VISIT 3 WK F/U Medications Medication SIG (Take, Route, Frequency, Duration) Notes Start Date End Date Status Ozempic (1 MG/DOSE) 4 MG/3ML 1 mg Subcutaneous weekly for 30 days 02/23/2025 Active Metoprolol Succinate ER 50 MG 0.5 tab twice a day Orally Once a day for 90 days Active Omeprazole 20 MG 1 capsule 1/2 to 1 h our before morning meal Orally twice a day for 90 days 12/29/2024 Active metFORMIN HCl 1000 MG TAKE ONE TABLET BY MOUTH TWICE A DAY WITH MEALS Orally twice a day for 90 days Active Atorvastatin Calcium 40 MG TAKE ONE TABLET BY MOUTH EVERY DAY Orally for 90 days Active Montelukast Sodium 10 MG TAKE ONE TABLET BY MOUTH EVERY EVENING for 90 days Active Valtrex 1 GM 2 tablet Orally ever y 12 hrs for 1 dose 05/07/2012 Not-Taking Ozempic (0.25 or 0.5 MG/DOSE) 2 MG/3ML as directed Subcutaneous 0.25 mg weekly fminth then .5mg weekly for 30 days 02/22/2024 Not-Taking Finasteride 5 MG 1 tablet Orally Once a day for 90 days Active Ozempic (2 MG/DOSE) 8 MG/3ML INJECT 2MG UNDER THE SKIN ONCE A WEEK for 28 Active Ozempic (1 MG/DOSE) 4 MG/3ML 1 mg Subcutaneous weekly 04/15/2024 Act queenie Aspirin 81 81 MG 1 tablet Orally Once a day for 30 day(s) 12/29/2024 Active Nitrostat 0.4 MG 1 tablet under [...] 30 day(s) Active Fluticasone Propionate 50 MCG/ACT SPRAY 1 SPRAY INTO EACH NOSTRIL ONCE A DAY for 180 Active OneTouch Ultra Test TEST BLOOD GLUCOSE T WICE A DAY for 50 Active OneTouch Delica Lancing Dev as directed for 50 03/03/2013 Active Vital Signs Blood pressure systolic 122 mm Hg 02/24/20 25 Blood pressure diastolic 64 mm Hg 025 Height 70 in 02/23/2025 Weight 178 lbs 02/23/2025 BMI 25.54 kg/m2 02/23/2025 weight is down 5 pounds [facility] [place] 9-4-25 Encounters Encounter Location Date Provider Diagnosis Vini Mendoza MD [address] [place] [address] [address] [place], [place] [phone] 02/23/2025 Vini Mendoza Type 2 diabetes arabella itus without complication E11.9 ; Rectal bleeding K62.5 ; Pure hypercholesterolemia E78.00 ; Elevated LFTs R79.89 and Anemia D64.9 Assessments Encounter Date Diagnosis (ICD Code) Assessment Notes Treatment Notes Treatment Clinical Notes Section Notes 02/23/2025 Type 2 diabetes mellitus without complication (ICD-10 - E11.9) patient verbalized understanding of change in medication, will continue to monitor 02/23/2025 Rectal bleeding (ICD -10 - K62.5) stable 02/23/2025 Pure hypercholesterolemia (ICD-10 - E78.00) stable, will continue current regiment 02/23/2025 Elevated LFTs (ICD-1 0 - R79.89) pending diagnostic labs 02/23/2025 Anemia (ICD-10 - D64.9) will continue to monitor 02/23/2025 Other black stools we re most likely related to iron supplementation since stool is negative 4 days ago stools were negative Plan Of Treatment Medication Medication Name Sig Start Date Stop Date Notes Ozempic (1 MG/DOSE) 4 MG/3ML 1 mg Subcut aneous weekly for 30 days 02/23/2025 Metoprolol Succinate ER 50 MG 0.5 tab tw ice a day Orally Once a day for 90 days Omeprazole 20 MG 1 capsule 1/2 to 1 h our before morning meal Orally twice a day for 90 days 12/29/2024 metFORMIN HCl 1000 MG TAKE ONE TABLET BY MOUTH TWICE A DAY WITH MEALS Orally twice a day for 90 days Atorvastatin Calcium 40 MG TAKE ONE TABL ET BY MOUTH EVERY DAY Orally for 90 days Montelukast Sodium 10 MG TAKE ONE TABLET BY MOUTH EVERY EVENING for 90 days Finasteride 5 MG 1 tablet Orally Once a day for 90 days Treatment Notes Assessment Notes Type 2 diabetes mellitus without complic ation patient verbalized understanding of change in medication, will continue to monitor Rectal bleeding stable Pure hypercholesterolemia stable, will c ontinue current regiment Elevated LFTs pending diagnostic l abs Anemia will continue to mon itor Other black stools were mo st likely related to iron supplementation since stool is negative 4 days ago stools were negative Pending Test Test Name Order Date HEPATITIS A,B,C PROFILE 02/23/2025 Future Test Test Name Order Date Liver Panel 03/02/2025 Next Appt Details Provider Name:Vini herzog, 06/29/2025 07:45:00 AM, [address] [place] [address], [address], [place], [place], [phone], Provider Name:Vini Moscoso ier, 07/06/2025 09:30:00 AM, [address], [address], [place], [phone], Progress Notes * Deacon ROMODOB:[birth year] (84 yo M)Acc No.[id number]:02/23/2025 Progress Notes Patient: Deacon IRVIN Provider: Galina Mendoza MD :1940 A ge:84 Y S ex:Male Date:02/23/2025 Address:[address] [place] [address], [phone] Subjective: * Chief Complaints: * 3 WK F/U * HPI: S ymptom(s): patient is a 84 yo male here for 3 week follow up visit. had black stools for 3 days. has been taking feeling well. taste is coming back. * ROS: G eneral/Constitutional: Denies C hills. D enies F atigue. D enies F ever. D enies H eadache. E NT: Denies S ore throat. R espiratory: Denies C ough. D enies S hortness of breath at rest. D enies S hortness of breath with exertion. G astrointestinal: Denies A bdominal pain. D enies D iarrhea. D enies N ausea. * [...] TAKE ONE TABLET BY MOUTH EVERY EVENING Finasteride 5 MG Tablet 1 tablet Orally [...] BY MOUTH TWICE A DAY WITH MEALS Omeprazole 20 MG Capsule Delayed Release 1 [...] TEST BLOOD GLUCOSE TWICE A DAY Taking VitalFieldsTouch Delica Lancing Dev Miscellaneous as directed Taking Aspir-Low 81 MG Tablet Delayed Release 1 tablet Orally Once a day Taking Xyzal Allergy 24HR 5 MG Tablet 1 tablet in the evening Orally Once a day Taking Montelukast Sodium 10 MG Tablet TAKE ONE TABLET BY MOUTH EVERY EVENING Taking Finasteride 5 MG Tablet 1 tablet [...] MOUTH TWICE A DAY WITH MEALS Taking Omeprazole 20 MG Capsule Delayed Release [...] Tablet 2 tablet Orally every 12 hrs DiscontinuedIrbesartan-hydroCHLOROthiazide 150-12.5 MG Tablet TAKE ONE TABLET BY MOUTH EVERY DAY Januvia 100 MG Tablet TAKE ONE TABLET BY MOUTH EVERY DAY Clopidogrel Bisulfate 75 MG Tablet 1 tablet Orally Once a day Eliquis 5 MG Tablet as directed Orally Twice a day Medication List reviewed and reconciled with the patientDiscontinued Irbesartan-hydroCHLOROthiazide 150-12.5 MG Tablet TAKE ONE TABLET BY MOUTH EVERY DAY Discontinued Januvia 100 MG Tablet TAKE ONE TABLET BY MOUTH EVERY DAY Discontinued Clopidogrel Bisulfate 75 MG Tablet 1 tablet Orally Once a day Discontinued Eliquis 5 MG Tablet as directed Orally Twice a day Medication List reviewed and reconciled with the patient * Allergies: N .K.D.A.yes[Allergies Verified] Objective: * Vitals: H t: 70, Wt: 178, BMI:25.54, BP:122/64, Wt-k.74. weight is down 5 pounds since 02-02-25. * Examination: G eneral Examination: GENERAL APPEARANCE: a lert, well hydrated, in no distress.? HEAD: n ormocephalic. SKIN: g ood turgor. HEART: r egular rate and rhythm, no murmurs, rubs, gallops.? LUNGS: n o wheezes, rales, rhonchi, good air movement, clear to auscultation bilaterally. RECTAL EXAM: n o masses palpable, stool guaiac negative.? Assessment: * Assessment: 1. T ype 2 diabetes mellitus without complication - E11.9 (Primary) 2 . R ectal bleeding - K62.5 3 . P ure hypercholesterolemia - E78.00 4 . E levated LFTs - R79.89 5 . A nemia - D64.9 Plan: * Treatment: 2. R ectal bleeding Refill Omeprazole Capsule Delayed Release, 20 MG, 1 capsule 1/2 to 1 hour before morning meal, Orally, twice a day, 90 days, 180, Refills 3. Notes: stable 3. P ure hypercholesterolemia Refill Atorvastatin Calcium Tablet, 40 MG, TAKE ONE TABLET BY MOUTH EVERY DAY, Orally, 90 days, 90, Refills 3. Notes: stable, will continue current regiment 4. E levated LFTs L AB: HEPATITIS A,B,C PROFILE Notes: pending diagnostic labs 5. A nemia L AB: Liver Panel (Ordered for 03/02/2025) Notes: will continue to monitor 6. O thers Refill Montelukast Sodium Tablet, 10 MG, TAKE ONE TABLET BY MOUTH EVERY EVENING, 90 days, 90 Tablet, Refills 3; R efill Finasteride Tablet, 5 MG, 1 tablet, Orally, Once a day, 90 days, 90 Tablet, Refills 3; R efill Metoprolol Succinate ER Tablet Extended Release 24 Hour, 50 MG, 0.5 tab twice a day, Orally, Once a day, 90 days, 90, Refills 3. Notes: black stools were most likely related to iron supplementation since stool is negative 4 days ago stools were negative * Procedure Codes: G 2211 Complex e/m visit add on * Preventive Medicine: Diabetes Care Plan: P atient Lifestyle Goals N eeds to maintain diet control.?Treatment Goals A 1C< 7. B arriers N eeds better diet control. S elf-Managment Plan W ork on weight loss, with a goal of losing 1 lb per week, Increase light exercise to 3 times a week for 30 minutes. E xpected Outcome u ltimately aiming to live a full and active life despite having diabetes, maintaining stable blood sugar levels within a target range. * * Sign off status: Completed true * Provider: Galina Mendoza MD Date: 0 02/23/2025 Generated for Meg brenner/Min/Jordenitting on: 1 07/09/2024 07:20 AM EST History and Physical Notes * HPI (History of Present Illness) Category Sub-Category Detail Notes Category Not es Symptom(s) patient is a 84 yo male here for 3 week follow up visit. had black stools for 3 days. has been taking feeling well. taste is coming back Examination Category Sub-Category Detail Notes Category Not es General Examination GENERAL APPEARANCE: alert, w ell hydrated, in no distress HEAD: normocephalic HEART: regular rate and rhy thm, no murmurs, rubs, gallops LUNGS: no wheezes, rales, r honchi, good air movement, clear to auscultation bilaterally SKIN: good turgor RECTAL EXAM: no masses palpable, stool guaiac negative
--- OUTSIDE RECORDS SUMMARY | 2025-02-24 04:19 | XMS_ITS ---
Author Organization Vini Mendoza MD Address [address] [place] [phone] Care Team Providers Care Concrete Hopper Operator Name Role Phone Vini Mendoza Primary Care Provider [phone] REASON FOR VISIT med issue Medications Medication SIG (Take, Route, Frequency, Duration) Notes Start Date End Date Status Metoprolol Succinate ER 25 MG 1 tablet Orally Once a day for 90 days Active Encounters Encounter Location Date Provider Diagnosis Vini Mendoza MD 10 [facility] [address] [place] [phone] 02/24/2025 Vini Mendoza Plan Of Treatment Medication Medication Name Sig Start Date Stop Date Notes Metoprolol Succinate ER 25 MG 1 tablet O rally Once a day for 90 days Next Appt Details Provider Name:Vini Moscoso ier, 06/29/2025 07:45:00 AM, [address], [address], [place], [phone], Provider Name:Vini Moscoso ier, 07/06/2025 09:30:00 AM, [address], [address], [place], [place], [phone], Progress Notes * Deacon ROMODOB:[birth year] (84 yo M)Acc No.[id number]:02/24/2025 Patient: Deacon IRVIN :1940 A ge:84 Y S ex:Male Address:[address] [place] [address] [place] [address] * Refills Continue Metoprolol Succinate ER Tablet Extended Release 24 Hour, 25 MG, Orally, 90 Tablet, 1 tablet, Once a day, 90 days, Refills=3 * true * Date: Generated for Meg brenner/Min/Jordenitting on: 1 07/09/2024 07:18 AM EST
--- OUTSIDE RECORDS SUMMARY | 2025-02-24 09:27 | XMS_ITS ---
Author Organization Vini Mendoza MD Address [address] [place] [phone] Care Team Providers Care Merchandise Planning Manager Name Role Phone Vini Mendoza Primary Care Provider [phone] Medications Medication SIG (Take, Route, Frequency, Duration) Notes Start Date End Date Status Metoprolol Succinate ER 25 MG 1 tablet Orally twice a day for 30 days Active Encounters Encounter Location Date Provider Diagnosis Vini Mendoza MD [address] [facility] [address] [place] [phone] 02/24/2025 Vini Mendoza Plan Of Treatment Medication Medication Name Sig Start Date Stop Date Notes Metoprolol Succinate ER 25 MG 1 tablet O rally twice a day for 30 days Next Appt Details Provider Name:Vini Moscoso ier, 06/29/2025 07:45:00 AM, [address], [address], [place], [phone], Provider Name:Vini Moscoso ier, 07/06/2025 09:30:00 AM, [address], [address], [place], [phone], Progress Notes * Deacon ROMODOB:[birth year] (84 yo M)Acc No.[id number]:02/24/2025 Patient: Deacon IRVIN :1940 A ge:84 Y S ex:Male Address:[address] [place], [place] [address] [address] * Refills Continue Metoprolol Succinate ER Tablet Extended Release 24 Hour, 25 MG, Orally, 60 Tablet, 1 tablet, twice a day, 30 days, Refills=5 * true * Date: Generated for Meg brenner/Min/eTmamadousmitting on: 1 07/09/2024 07:19 AM EST
--- OUTSIDE RECORDS SUMMARY | 2025-03-02 02:45 | XMS_ITS ---
Author Organization Vini Mendoza MD Address [address] [place] [phone] Care Team Providers Care Goggles Assembler Name Role Phone Vini Mendoza Primary Care Provider [phone] Results Component Value Reference Range Notes Liver Panel Reviewed date:03/02/2025 12:33:15 PM Interpretation: Performing Lab:[facility], [address] [place] [phone] Notes/Report: Bilirubin Total 1.0 0.0-1.0 mg/dL Bilirubin Direct 0.3 0.0-0.5 mg/dL Aspartate Amino Transferase 41 5-37 U/L Alanine Aminotransferase 30 0-40 U/L Total Protein 6.2 6.5-8.0 g/dL Albumin Level 3.9 3.5-5.0 g/dL Alkaline Phosphatase 100 39-117 U/L Hepatitis A,B,C Profile Reviewed date:03/02/2025 12:33:25 PM Interpretation: Performing Lab:[facility], [address] [place] [phone] Notes/Report: Hepatitis A Antibody IgM Nonreactive Nonreactive IgM antibodies to HAV not detected; does not exclude early acute or recovered HAV infection. Hepatitis B Surface Antibody NONREACTIVE Nonreactive Nonreactive: < 8.00 mIU/mL Hepatitis B Core Antibody Nonreactive Nonreactive Hepatitis C Antibody Nonreactive Nonreactive Antibodies to HCV not detected; does not exclude early acute HCV infection. Hepatitis B Surface Antigen Negative Negative REASON FOR VISIT liver panel, Hep ABC profile Encounters Encounter Location Date Provider Diagnosis Vini Mendoza MD [address] [place] [address] [place] [phone] 03/02/2025 Vini Mendoza Elevated liver function tests R79.89 Assessments Encounter Date Diagnosis (ICD Code) Assessment Notes Treatment Notes Treatment Clinical Notes Section Notes 03/02/2025 Elevated liver function tests (ICD-10 - R79.89) Plan Of Treatment Next Appt Details Provider Name:Vini herzog, 06/29/2025 07:45:00 AM, [address] [place] [address], Suite [facility], [place], [place], [phone], Provider Name:Vini herzog, 07/06/2025 09:30:00 AM, [address] [place] [address], [place] [address], [place], [place], [phone], Progress Notes * Deacon ROMODOB:[birth year] (84 yo M)Acc No.[id number]:03/02/2025 Progress Note Patient: Deacon IRVIN Provider: Galina Mendoza MD :1940 A ge:84 Y S ex:Male Date:03/02/2025 Address:[address] [place], [place] [phone] Subjective: * Chief Complaints: * 1 . liver panel, Hep ABC profile. * Medical History: Objective: * Vitals: Assessment: * Assessment: 1. E levated liver function tests - R79.89 (Primary) Plan: * Treatment: * Procedure Codes: 3 6415 VENIPUNCT, ROUTINE* * * The named appointment provid er may or may not be the originator of this progress note, and it is not deemed complete until electronically signed by the appointment provider. Sign off status: Pending * Provider: Galina Mendoza MD Date: 1 Generated for Meg brenner/Min/Jordenitting on: 07/09/2024 07:20 AM EST
--- OUTSIDE RECORDS SUMMARY | 2025-03-06 08:00 | XMS_ITS ---
Author Organization Vini Mendoza MD Address [address] [place] [phone] Care Team Providers Care Division Manager Name Role Phone Vini Mendoza Primary Care Provider Allergies No Known Allergies REASON FOR VISIT follow up appt after blood work Medications Medication SIG (Take, Route, Frequency, Duration) Notes Start Date End Date Status Ozempic (2 MG/DOSE) 8 MG/3ML INJECT 2MG UNDER THE SKIN ONCE A WEEK for 28 Active Montelukast Sodium 10 MG TAKE ONE TABLET BY MOUTH EVERY EVENING for 90 days Active Fluticasone Propionate 50 MCG/ACT SPRAY 1 SPRAY INTO EACH NOSTRIL ONCE A DAY for 180 Active Nitrostat 0.4 MG 1 tablet under the tongue and allow to dissolve as needed. Take every 5 minutes up to 3 times if chest pain persists Sublingual Three times a day for 30 days 10/21/2024 Active Aspirin 81 81 MG 1 tablet Orally Once a day for 30 day(s) 12/29/2024 Active OneTouch Ultra Test TEST BLOOD GLUCOSE T WICE A DAY for 50 Active OneTouch Delica Lancing Dev as directed for 50 03/03/2013 Active Aspir-Low 81 MG 1 tablet Orally Once a day for 30 day(s) Active Xyzal Allergy 24HR 5 MG 1 tablet in the evening Orally Once a day for 30 day(s) Active Atorvastatin Calcium 40 MG TAKE ONE TABLET BY MOUTH EVERY DAY Orally for 90 days Active Ozempic (1 MG/DOSE) 4 MG/3ML 1 mg Subcutaneous weekly for 30 days 02/23/2025 Active Metoprolol Succinate ER 25 MG 1 tablet Orally twice a day for 30 days Active Ozempic (0.25 or 0.5 MG/DOSE) 2 MG/3ML as directed Subcutaneous 0.25 mg weekly fminth then .5mg weekly for 30 days 02/22/2024 Not-Taking Valtrex 1 GM 2 tablet Orally ever y 12 hrs for 1 dose 05/07/2012 Not-Taking metFORMIN HCl 1000 MG TAKE ONE TABLET BY MOUTH TWICE A DAY WITH MEALS Orally twice a day for 90 days Active Omeprazole 20 MG 1 capsule 1/2 to 1 h our before morning meal Orally twice a day for 90 days 12/29/2024 Active Finasteride 5 MG 1 tablet Orally Once a day for 90 days Active Vital Signs Blood pressure systolic 130 mm Hg 03/06/20 25 Blood pressure diastolic 62 mm Hg 025 Height 70 in 03/06/2025 Weight 174 lbs 03/06/2025 BMI 24.96 kg/m2 03/06/2025 weight is down 4 pounds [facility] 02-23-25 Encounters Encounter Location Date Provider Diagnosis Vini Mendoza MD [address] [place] [address] [place] [id number] 03/06/2025 Vini Mendoza Weight loss R63.4 an d Type 2 diabetes mellitus without complication E11.9 Assessments Encounter Date Diagnosis (ICD Code) Assessment Notes Treatment Notes Treatment Clinical Notes Section Notes 03/06/2025 Weight loss (ICD-10 - R63.4) still no improvement with appetitie. doesn't get pleasure out of food. have reviewed the causes and it is common after bypass surgery, patient verbalized understanding to d/c medication 03/06/2025 Type 2 diabetes mellitus without complication (ICD-10 - E11.9) stop the metformin, patient verbalized understanding of instruction to d/c medication Plan Of Treatment Medication Medication Name Sig Start Date Stop Date Notes Ozempic (1 MG/DOSE) 4 MG/3ML 1 mg Subcutaneous weekly 04/01 Treatment Notes Assessment Notes Weight loss still no improvement with appetitie. doesn't get pleasure out of food. have reviewed the causes and it is common after bypass surgery, patient verbalized understanding to d/c medication Type 2 diabetes mellitus wit hout complication stop the metformin, patient verbalized understanding of instruction to d/c medication Next Appt Details Follow Up: 4 Weeks, Reason: Provider Name:Vini herzog, 06/29/2025 07:45:00 AM, [address] [place] [address], [address], [place], [place], [phone], Provider Name:Vini herzog, 07/06/2025 09:30:00 AM, [address] [place] [address], [address], [place], [place], [phone], Progress Notes * Deacon ROMODOB:[birth year] (84 yo M)Acc No.[id number]:03/06/2025 Progress Notes Patient: Deacon IRVIN Provider: Galina Mendoza MD :1940 A ge:84 Y S ex:Male Date:03/06/2025 Address:[address] [place] [address] [place], [id number] Subjective: * Chief Complaints: * F ollow up appt after blood work * HPI: S ymptom(s): patient is a 84 yo male here for follow up recent blood work. has no pleasure with food. * ROS: G eneral/Constitutional: Denies C hills. D enies F atigue. D enies F ever. D enies H eadache. E NT: Denies S ore throat. R espiratory: Denies C ough. D enies S hortness of breath at rest. Luther hendrix S hortness of breath with exertion. G astrointestinal: Nilsa Sloan iarrhea. Luther Rey ausea. * Medical History: * Surgical History: * Hospitalization/Major Diagno stic Procedure: * [facility]ations[facility] Ultra Test Strip TEST BLOOD GLUCOSE TWICE [...] MG/3ML Solution Pen-injector 1 mg Subcutaneous weekly Aspirin 81 81 MG Tablet Delayed Release 1 tablet Orally Once a day Ozempic (2 MG/DOSE) 8 MG/3ML Solution Pen-injector INJECT 2MG UNDER THE SKIN ONCE A WEEK Montelukast Sodium 10 MG Tablet TAKE ONE TABLET BY MOUTH EVERY EVENING Finasteride 5 MG Tablet 1 tablet Orally Once a day metFORMIN HCl 1000 MG Tablet TAKE ONE TABLET BY MOUTH TWICE A DAY WITH MEALS Orally twice a day Omeprazole 20 MG Capsule Delayed Release 1 capsule 1/2 to 1 hour before morning meal Orally twice a day Atorvastatin Calcium 40 MG Tablet TAKE ONE TABLET BY MOUTH EVERY DAY Orally Ozempic (1 MG/DOSE) 4 MG/3ML Solution Pen-injector 1 mg Subcutaneous weekly Metoprolol Succinate ER 25 MG Tablet Extended Release 24 Hour 1 tablet Orally twice a day Taking OneTouch Ultra Test Strip TEST BLOOD [...] Solution Pen-injector 1 mg Subcutaneous weekly Taking Aspirin 81 81 MG Tablet Delayed Release 1 tablet Orally Once a day Taking Ozempic (2 MG/DOSE) 8 MG/3ML Solution Pen-injector INJECT 2MG UNDER THE SKIN ONCE A WEEK Taking Montelukast Sodium 10 MG Tablet TAKE ONE TABLET BY MOUTH EVERY EVENING Taking Finasteride 5 MG Tablet 1 tablet Orally Once a day Taking metFORMIN HCl 1000 MG Tablet TAKE ONE TABLET BY MOUTH TWICE A DAY WITH MEALS Orally twice a day Taking Omeprazole 20 MG Capsule Delayed Release 1 capsule 1/2 to 1 hour before morning meal Orally twice a day Taking Atorvastatin Calcium 40 MG Tablet TAKE ONE TABLET BY MOUTH EVERY DAY Orally Taking Ozempic (1 MG/DOSE) 4 MG/3ML Solution Pen-injector 1 mg Subcutaneous weekly Taking Metoprolol Succinate ER 25 MG Tablet Extended Release 24 Hour 1 tablet Orally twice a day Not-Taking/PRNOzempic (0.25 or 0.5 MG/DOSE) 2 MG/3ML [...] Objective: * Vitals: H t: 70, Wt: 174, BMI:24.96, BP:130/62, Wt-k.93. weight is down 4 pounds since 02-23-25. * P ast Orders: L ab:Liver Panel (Order Date - 03/02/2025) (Collection Date & Time - 03/02/2025 07:45 AM) Value Reference Range Bilirubin Total 1.0 0.0-1.0 - mg/dL Bilirubin Direct 0.3 0.0-0.5 - mg/dL Aspartate Amino Transferase 41 H 5-37 - U/L Alanine Aminotransferase 30 0-40 - U/L Total Protein 6.2 L 6.5-8.0 - g/dL Albumin Level 3.9 3.5-5.0 - g/dL Alkaline Phosphatase 100 39-117 - U/L L ab:Hepatitis A,B,C Profile (Order Date - 03/02/2025) (Collection Date & Time - 03/02/2025 07:45 AM) Value Reference Range Hepatitis B Surface Antibody NONREACTIVE Nonreactive - Hepatitis B Core Antibody Nonreactive Nonreactive - Hepatitis C Antibody Nonreactive Nonreactive - Hepatitis B Surface Antigen Negative Negative - Hepatitis A Antibody IgM Nonreactive Nonreactive - * Examination: G eneral Examination: GENERAL APPEARANCE: a lert, well hydrated, in no distress.? HEAD: n ormocephalic. HEART: n o murmurs, rubs, gallops, regular rate and rhythm.? LUNGS: n o wheezes, rales, rhonchi, good air movement, clear to auscultation bilaterally. ABDOMEN: s oft, nontender, nondistended, no hepatosplenomegaly. Assessment: * Assessment: 1. W eight loss - R63.4 (Primary) 2 . T ype 2 diabetes mellitus without complication - E11.9 Plan: * Treatment: 2. T ype 2 diabetes mellitus without complication Notes: stop the metformin, patient verbalized understanding of instruction to d/c medication ? * Procedure Codes: * Follow Up: 4 Weeks * * Sign off status: Completed true * Provider: Galina Mendoza MD Date: 1 Generated for Meg brenner/Min/eTransmitting on: 07/09/2024 07:19 AM EST History and Physical Notes * HPI (History of Present Illness) Category Sub-Category Detail Notes Category Not es Symptom(s) patient is a 84 yo male here for follow up recent blood work. has no pleasure with food. Examination Category Sub-Category Detail Notes Category Not es General Examination GENERAL APPEARANCE: alert, w ell hydrated, in no distress HEAD: normocephalic HEART: no murmurs, rubs, ga llops, regular rate and rhythm LUNGS: no wheezes, rales, r honchi, good air movement, clear to auscultation bilaterally ABDOMEN: soft, nontender, non distended, no hepatosplenomegaly
--- OUTSIDE RECORDS SUMMARY | 2025-03-09 03:04 | XMS_ITS ---
Author Organization Vini Mendoza MD Address [address] [place] [address] [phone] Care Team Providers Care Relay Checker Name Role Phone KellyChristianon Primary Care Provider REASON FOR VISIT CT Abd with contrast Encounters Encounter Location Date Provider Diagnosis Vnii Mendoza MD [address] [place] [address] [id number] 03/09/2025 Vini Mendoza Abnormal liver function K76.89 and Abnormal ultrasound R93.89 Assessments Encounter Date Diagnosis (ICD Code) Assessment Notes Treatment Notes Treatment Clinical Notes Section Notes 03/09/2025 Abnormal liver function (ICD-10 - K76.89) Order faxed to Centralized scheduling 03/09/2025 Abnormal ultrasound (ICD-10 - R93.89) Plan Of Treatment Treatment Notes Assessment Notes Abnormal liver function Order faxed to C entralized scheduling Pending Test Test Name Order Date CT ABD WITH CONTRAST 03/09/2025 Next Appt Details Provider Name:Vini Moscoso ier, 06/29/2025 07:45:00 AM, [address], [address], [place], [place], [phone], Provider Name:Vini Moscoso ier, 07/06/2025 09:30:00 AM, [address], [address], [place], [place], [phone], Progress Notes * Deacon ROMODOB:[birth year] (84 yo M)Acc No.[id number]:03/09/2025 Patient: Deacon IRVIN :1940 A ge:84 Y S ex:Male Address:[address] [place] [address] [place] [phone] Subjective: * Chief Complaints: * C T Abd with contrast * Medical History: * Surgical History: * Hospitalization/Major Diagno stic Procedure: * Medications: Objective: * Vitals: * Physical Examination: Assessment: * Assessment: 1. A bnormal liver function - K76.89 2 . A bnormal ultrasound - R93.89 Plan: * Treatment: 2. A bnormal ultrasound I maging: CT ABD WITH CONTRAST * Procedure Codes: * true * Date: Generated for Meg brenner/Min/eTransmitting on: 07/09/2024 07:19 AM EST
--- OUTSIDE RECORDS SUMMARY | 2025-03-14 05:13 | XMS_ITS ---
Author Organization Vini Mendoza MD Address [address] [place] [address] [phone] Care Team Providers Care Bowling Alley Operator Name Role Phone Vini Mendoza Primary Care Provider [phone] REASON FOR VISIT refill Encounters Encounter Location Date Provider Diagnosis Vini Mendoza MD [address] [facility] [address] [place] [address] [phone] 03/14/2025 Vini Mendoza Plan Of Treatment Next Appt Details Provider Name:Vini herzog, 06/29/2025 07:45:00 AM, [address] [facility], [address] [facility], [place], [place], [phone], Provider Name:Vini herzog, 07/06/2025 09:30:00 AM, [address], [address], [place], [phone], Progress Notes * Deacon ROMODOB:[birth year] (84 yo M)Acc No.[id number]:03/14/2025 Patient: Deacon IRVIN :1940 A ge:84 Y S ex:Male Address:[address] [place] [address], [place] [address] * true * Date: Generated for Meg brenner/Min/Donsmitting on: 07/09/2024 07:21 AM EST
--- OUTSIDE RECORDS SUMMARY | 2025-04-03 04:15 | XMS_ITS ---
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 Role Phone Vini Mendoza Primary Care Provider Allergies No Known Allergies Results Component Value Reference Range Notes Hemoglobin A1c Reviewed date:04/03/2025 09:01:34 AM Interpretation: Performing Lab: Notes/Report: Hemoglobin A1c 5.2 Glucose, finger stick Reviewed date:04/03/2025 08:54:14 AM Interpretation: Performing Lab: Notes/Report: Value 146 REASON FOR VISIT 4 WEEK F/U Medications Medication SIG (Take, Route, Frequency, Duration) Notes Start Date End Date Status Fluticasone Propionate 50 MCG/ACT SPRAY 1 SPRAY INTO EACH NOSTRIL ONCE A DAY for 180 Active Nitrostat 0.4 MG 1 tablet under the tongue and allow to dissolve as needed. Take every 5 minutes up to 3 times if chest pain persists Sublingual Three times a day for 30 days 10/21/2024 Active OneTouch Ultra Test TEST BLOOD GLUCOSE T WICE A DAY for 50 Active OneTouch Delica Lancing Dev as directed for 50 03/03/2013 Active Xyzal Allergy 24HR 5 MG 1 tablet in the evening Orally Once a day for 30 day(s) Active Ozempic (0.25 or 0.5 MG/DOSE) 2 MG/3ML as directed Subcutaneous 0.25 mg weekly fminth then .5mg weekly for 30 days 02/22/2024 Not-Taking Valtrex 1 GM 2 tablet Orally ever y 12 hrs for 1 dose 05/07/2012 Not-Taking Iron 325 (65 Fe) MG 1 tablet Orally Thre e times a Week Active Ozempic (1 MG/DOSE) 4 MG/3ML 1 mg Subcutaneous weekly for 30 days 02/23/2025 Active Metoprolol Succinate ER 25 MG 1 tablet Orally twice a day for 30 days Active Montelukast Sodium 10 MG TAKE ONE TABLET BY MOUTH EVERY EVENING for 90 days Active Finasteride 5 MG 1 tablet Orally Once a day for 90 days Active Omeprazole 20 MG 1 capsule 1/2 to 1 h our before morning meal Orally twice a day for 90 days 12/29/2024 Active Atorvastatin Calcium 40 MG TAKE ONE TABLET BY MOUTH EVERY DAY Orally for 90 days Active Aspirin 81 81 MG 1 tablet Orally Once a day for 30 day(s) 12/29/2024 Active Ozempic (2 MG/DOSE) 8 MG/3ML INJECT 2MG UNDER THE SKIN ONCE A WEEK for 28 Active Vital Signs Blood pressure systolic 112 mm Hg 04/03/20 25 Blood pressure diastolic 80 mm Hg 025 Height 70 in 04/03/2025 Weight 181 lbs 04/03/2025 BMI 25.97 kg/m2 04/03/2025 weight is up 7 pounds since 03-06-25 Encounters Encounter Location Date Provider Diagnosis Vini Mendoza MD [address] [facility] [address] [place], [place] [phone] 04/03/2025 Vini Mendoza Type 2 diabetes mellitus without complication E11.9 and 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 Assessments Encounter Date Diagnosis (ICD Code) Assessment Notes Treatment Notes Treatment Clinical Notes Section Notes 04/03/2025 Type 2 diabetes mellitus without complication (ICD-10 - E11.9) 04/03/2025 History of coronary artery bypass graft (ICD-10 - Z95.1) following with cardiology Plan Of Treatment Treatment Notes Assessment Notes History of coronary artery bypass graft following with cardiology Next Appt Details Follow Up: 3 Months, Reason: Provider Name:Vini Moscoso ier, 06/29/2025 07:45:00 AM, [address] [place] [address], [address], [place], [place], [phone], Provider Name:Vini Moscoso ier, 07/06/2025 09:30:00 AM, [address] [facility], [address], [place], [place], [phone], Progress Notes * Deacon ROMODOB:[birth year] (84 yo M)Acc No.[id number]:04/03/2025 Progress Notes Patient: Deacon IRVIN Provider: Galina Mendoza MD :1940 A ge:84 Y S ex:Male Date:04/03/2025 Address:[address] [place] [address] [place], [id number] Subjective: * Chief Complaints: * 4 WEEK F/U * HPI: S ymptom(s): patient is a 84yo male here for 4 week follow up visit/ still having trouble eating at times. tried to eat a sandwich at [employer] and went back on ozempic. made no difference off of it. * ROS: G eneral/Constitutional: Denies C hills. D enies F atigue. D enies F ever. D enies H eadache. E NT: Denies S ore throat. E ndocrine: Denies D ifficulty sleeping. D enies D izziness.?Denies E xcessive sweating. D enies E xcessive thirst. D enies F requent urination. R espiratory: Denies C ough. D enies [...] Hospitalization/Major Diagno stic Procedure: * Medications: T akingIron 325 (65 Fe) MG Tablet 1 tablet Orally Three times a Week OneTouch Ultra Test Strip TEST BLOOD GLUCOSE TWICE A DAY OneTouch Delica Lancing Dev Miscellaneous as directed Xyzal Allergy 24HR 5 MG Tablet 1 tablet in the evening Orally Once a day Fluticasone Propionate 50 MCG/ACT Suspension SPRAY 1 SPRAY INTO EACH NOSTRIL ONCE A DAY Nitrostat 0.4 MG Tablet Sublingual 1 tablet under the tongue and allow to dissolve as needed. Take every 5 minutes up to 3 times if chest pain persists Sublingual Three times a day Aspirin 81 81 MG Tablet Delayed Release 1 tablet Orally Once a day Ozempic (2 MG/DOSE) 8 MG/3ML Solution Pen-injector INJECT 2MG UNDER THE SKIN ONCE A WEEK Montelukast Sodium 10 MG Tablet TAKE ONE TABLET BY MOUTH EVERY EVENING Finasteride 5 MG Tablet 1 tablet Orally Once a day Omeprazole 20 MG Capsule Delayed Release 1 capsule 1/2 to 1 hour before morning meal Orally twice a day Atorvastatin Calcium 40 MG Tablet TAKE ONE TABLET BY MOUTH EVERY DAY Orally Ozempic (1 MG/DOSE) 4 MG/3ML Solution Pen-injector 1 mg Subcutaneous weekly Metoprolol Succinate ER 25 MG Tablet Extended Release 24 Hour 1 tablet Orally twice a day Taking Iron 325 (65 Fe) MG Tablet 1 tablet Orally Three times a Week Taking OneTouch Ultra Test Strip TEST BLOOD GLUCOSE TWICE A DAY Taking OneTouch Delica Lancing Dev Miscellaneous as directed Taking Xyzal Allergy 24HR 5 MG Tablet [...] persists Sublingual Three times a day Taking Aspirin 81 81 MG Tablet Delayed Release 1 tablet Orally Once a day Taking Ozempic (2 MG/DOSE) 8 MG/3ML Solution Pen-injector INJECT 2MG UNDER THE SKIN ONCE A WEEK Taking Montelukast Sodium 10 MG Tablet TAKE ONE TABLET BY MOUTH EVERY EVENING Taking Finasteride 5 MG Tablet 1 tablet Orally Once a day Taking Omeprazole 20 MG Capsule [...] Tablet 2 tablet Orally every 12 hrs DiscontinuedmetFORMIN HCl 1000 MG Tablet TAKE ONE TABLET BY MOUTH TWICE A DAY WITH MEALS Orally twice a day Medication List reviewed and reconciled with the patientDiscontinued metFORMIN HCl 1000 MG Tablet TAKE ONE TABLET BY MOUTH TWICE A DAY WITH MEALS Orally twice a day Medication List reviewed and reconciled with the patient * Allergies: N .K.D.A.yes[Allergies Verified] Objective: * Vitals: H t: 70, Wt: 181, BMI:25.97, BP:112/80, Wt-k.1. weight is up 7 pounds since 03-06-25. * Examination: G eneral Examination: GENERAL APPEARANCE: a lert, well hydrated, in no distress.? HEAD: n ormocephalic. SKIN: g ood turgor. HEART: n o murmurs, rubs, gallops, regular rate and rhythm.? LUNGS: n o wheezes, rales, rhonchi, clear to auscultation bilaterally. Assessment: * Assessment: 1. T ype 2 diabetes mellitus without complication - E11.9 (Primary) 2 . H istory of coronary artery bypass graft - Z95.1 Plan: * Treatment: Value Reference Range H emoglobin A1c 5.2 ?LAB: Glucose, finger stick (Collection Date & Time - 04/03/2025)* Value Reference Range V alue 146 2.?History of coronary artery bypass graft? Notes: following with cardiology?? * Procedure Codes: 8 2947 ASSAY, GLUCOSE, BLOOD QUANT, Modifiers: QW 52051 GLYCATED HEMOGLOBIN TEST, Modifiers: QW * Follow Up: 3 Months * * Sign off status: Completed true * Provider: Galina Mendoza MD Date: 1 06/03/2024 Generated for Meg brenner/Min/Derick on: 07/09/2024 07:20 AM EST History and Physical Notes * HPI (History of Present Illness) Category Sub-Category Detail Notes Category Not es Symptom(s) patient is a 84 yo male here for 4 week follow up visit/ still having trouble eating at times. tried to eat a sandwich at [employer] and went back on ozempic. made no difference off of it. Examination Category Sub-Category Detail Notes Category Not es General Examination GENERAL APPEARANCE: alert, w ell hydrated, in no distress HEAD: normocephalic HEART: no murmurs, rubs, ga llops, regular rate and rhythm LUNGS: no wheezes, rales, r honchi, clear to auscultation bilaterally SKIN: good turgor
--- OUTSIDE RECORDS SUMMARY | 2025-05-05 02:45 | XMS_ITS ---
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 Name Role Phone Vini Mendoza Primary Care Provider [phone] Results Component Value Reference Range Notes Blood Urea Nitrogen Reviewed date:05/05/2025 12:29:38 PM Interpretation: Performing Lab:[facility], [address] [place] [phone] Notes/Report: Blood Urea Nitrogen 12 9-16 mg/dL Creatinine Reviewed date:05/05/2025 12:29:30 PM Interpretation: Performing Lab:[facility], [address] [place] [phone] Notes/Report: Creatinine 0.91 0.5-1.4 mg/dL Estimated Glomerular Filt Rate > 60 Chronic Kidney Disease: Estimated GFR < 60 mL/min/1.73m2 Severe Kidney Disease: Estimated GFR < 15 mL/min/1.73m2 REASON FOR VISIT BUN and Creatinine for his CT abd booked for 05-08-2025 Encounters Encounter Location Date Provider Diagnosis Vini Mendoza MD [address] [place] [address] [place] [phone] 05/05/2025 Vini Mendoza Blood tests prior to treatment or procedure Z01.812 Assessments Encounter Date Diagnosis (ICD Code) Assessment Notes Treatment Notes Treatment Clinical Notes Section Notes 05/05/2025 Blood tests prior to treatment or procedure (ICD-10 - Z01.812) Plan Of Treatment Next Appt Details Provider Name:Vini herzog, 06/29/2025 07:45:00 AM, [address] [place] [address], Suite [facility], [place], [place], [phone], Provider Name:Vini herzog, 07/06/2025 09:30:00 AM, [address] [place] [address], Suite [facility], [place], [place], [phone], Progress Notes * Deacon ROMODOB:[birth year] (84 yo M)Acc No.[id number]:05/05/2025 Progress Note Patient: Deacon IRVIN Provider: Galina Mendoza MD :1940 A ge:84 Y S ex:Male Date:05/05/2025 Address:[address] [place] [address] [id number] Subjective: * Chief Complaints: * 1 . BUN and Creatinine for his CT abd booked for 05-08-2025. * Medical History: Objective: * Vitals: Assessment: * Assessment: 1. B lood tests prior to treatment or procedure - Z01.812 (Primary) Plan: * Treatment: * Procedure Codes: 3 6415 VENIPUNCT, ROUTINE* * * The named appointment provid er may or may not be the originator of this progress note, and it is not deemed complete until electronically signed by the appointment provider. Sign off status: Pending * Provider: Galina Mendoza MD Date: 07/06/2024 Generated for Meg brenner/Min/Derick on: 07/09/2024 07:19 AM EST
--- NOTE | ~2025-05-08 | CT_ITS ---
EXAMINATION: CT ABDOMEN WITH CONTRAST CLINICAL INFORMATION: Abnormal ultrasound, questionable mass right kidney versus prominent column of Daniel. COMPARISON: Abdomen US 03/06/2025. CT abdomen and pelvis 12/17/2022. TECHNIQUE: Contiguous axial thin section helical images of the abdomen were performed following the administration of oral contrast and mL of Omnipaque 350 intravenous contrast. The data set was reformatted in the coronal and sagittal planes and reviewed on an independent workstation. This CT examination was performed using dose optimization techniques as appropriate, variously including the following: *Automated exposure control *Adjustment of mA and/or kV according to patient size (this includes techniques or standardized protocols for targeted exams where dose is matched to indication/reason for exam; i.e. extremities or head) *Use of iterative reconstruction technique FINDINGS: LUNG BASES: Mild parenchymal scarring is evident in the subpleural lung bases and lingula. Lung bases otherwise clear. Heart size is normal. No pericardial effusion. There are heavy coronary calcifications present. There is been a median sternotomy. The GE junction is normal. LIVER, GALLBLADDER, AND BILIARY TREE: The liver is normal in size and appearance. There is no focal lesion or intrahepatic biliary dilatation. The gallbladder images normally. PANCREAS: Mild atrophy. Otherwise normal. SPLEEN: There are splenic granulomas present. Spleen is otherwise normal. ADRENAL GLANDS AND KIDNEYS: There is bilateral mild perirenal stranding. There is no hydronephrosis or mass. There is a prominent column of 13 in the right mid kidney. There are subcentimeter cysts in both kidneys. There is no hydroureter. BOWEL LOOPS: Normal in appearance. There is a mobile cecum noted. Normal appendix noted. LYMPH NODES: Normal. VASCULAR: There is heavy arterial vascular calcification present. There is no aneurysm. OSSEOUS STRUCTURES: No suspicious lytic or blastic bone lesions. There is a large Schmorl's node in the superior endplate of L3 with surrounding sclerosis. There are moderate to advanced degenerative changes in the imaged spine. CT/CT abdomen w IV con IMPRESSION: 1. There is no acute finding in the abdomen or imaged pelvis. 2. There is no evidence of right renal mass. There is a prominent right renal column of Daniel. 3. There are heavy vascular calcifications. Electronically signed by: Dhaval Carpenter MD 05/08/2025 09:50 AM EST
--- OUTSIDE RECORDS SUMMARY | 2025-05-08 07:20 | XMS_ITS | Patient Health Record ---
Author Organization [facility] Address [address] [place] [address] Care Team Providers Care Graves Registration Specialist Name Role Phone Vini Mendoza MD Primary Care Provider Cedrick Becerra Jr Unavailable Allergies Allergen (clinical drug ingredient) Drug/Non Drug Allergy documented on EMR Reaction Allergy Type Onset Date Status seasonal (uncoded) Unknown Allergy A ctive Results Component Value Reference Range Flag Notes US abdomen comp w elastograp hy Reviewed date:01/10/2025 12:58:18 PM Interpretation: Performing Lab: Notes/Report: [address] [address] Ultrasound Report Signed Patient: Deacon Romo MR#: [id number] : 1940 Acct:[id number] Age/Sex: 84 / M ADM Date: 01/06/25 Loc: [facility] [id number]: Krishna Lemon MD Ordering Physician: Leo Guo MD Date of Service: 01/07/25 Procedure(s): US abdomen comp w elastography Accession Number(s): [id number] cc: Vini Mendoza MD; Leo Guo MD EXAMINATION: US COMPLETE ABDOMEN WITH LIVER ELASTOGRAPHY CLINICAL INFORMATION: Elevated LFTs COMPARISON: Ultrasound abdomen 01/02/2023 TECHNIQUE: Real-time imaging of the abdominal viscera. 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: LISA Complete Blood Count Auto Di ff Reviewed date:01/10/2025 12:57:13 PM Interpretation: Performing Lab:[facility], [address] [place] [phone] Notes/Report: White Blood Count 6.1 4.8-10.8 X10*3/uL N Red Blood Count 3.73 4.60-5.80 X10*6/uL L Hemoglobin 9.2 14.0-18.0 g/dl L Hematocrit 30.0 42.0-52.0 % L Mean Corpuscular Volume 80.4 80.0-98.0 fL N Mean Corpuscular Hemoglobin 24.7 27.0-33.0 pg L Mean Corpuscular HGB Conc 30.7 31.0-36.0 g/dl L Red Cell Distribution Width 18.6 11.0-16.0 % H Platelet Count 198 160-400 X10*3/uL N Mean Platelet Volume 11.0 9.4-12.4 fL N Neutrophils Percent Auto 57.3 45-73 % N Imm Gran Pct Auto 0.3 0.0-0.4 % N Lymphocytes Percent Auto 23.4 20-40 % N Monocytes Percent Auto 8.4 2-11 % N Eosinophils Percent Auto 9.9 0-4 % H Basophils Percent Auto 0.7 0-2 % N NRBC Pct Auto 0.0 0.0-0.2 /100WBC N Neutrophils Absolute Auto 3.5 2.0-8.3 x10*3/uL N Imm Gran Abs Auto 0.02 0.00-0.03 X10*3/uL N Lymphocytes Absolute Auto 1.4 1.2-4.9 X10*3/uL N Monocytes Absolute Auto 0.5 0.1-1.2 X10*3/uL N Eosinophils Absolute Auto 0.6 0.0-0.4 X10*3/uL H Basophils Absolute Auto 0.0 0.0-0.2 X10*3/uL N NRBC Abs Auto 0.000 0.0-0.012 X10*3/uL N Pathology Reviewed date:01/15/2025 10:51:17 PM Interpretation: Performing Lab:[facility], [address] [place] [phone] Notes/Report: Complete Blood Count Auto Di ff Reviewed date:01/10/2025 12:56:35 PM Interpretation: Performing Lab:[facility], [address] [place] [phone] Notes/Report: White Blood Count 4.9 4.8-10.8 X10*3/uL N Red Blood Count 3.52 4.60-5.80 X10*6/uL L Hemoglobin 8.8 14.0-18.0 g/dl L Hematocrit 28.0 42.0-52.0 % L Mean Corpuscular Volume 79.5 80.0-98.0 fL L Mean Corpuscular Hemoglobin 25.0 27.0-33.0 pg L Mean Corpuscular HGB Conc 31.4 31.0-36.0 g/dl N Red Cell Distribution Width 18.5 11.0-16.0 % H Platelet Count 179 160-400 X10*3/uL N Mean Platelet Volume 11.0 9.4-12.4 fL N Neutrophils Percent Auto 53.4 45-73 % N Imm Gran Pct Auto 0.6 0.0-0.4 % H Lymphocytes Percent Auto 27.2 20-40 % N Monocytes Percent Auto 8.9 2-11 % N Eosinophils Percent Auto 9.1 0-4 % H Basophils Percent Auto 0.8 0-2 % N NRBC Pct Auto 0.0 0.0-0.2 /100WBC N Neutrophils Absolute Auto 2.6 2.0-8.3 x10*3/uL N Imm Gran Abs Auto 0.03 0.00-0.03 X10*3/uL N Lymphocytes Absolute Auto 1.3 1.2-4.9 X10*3/uL N Monocytes Absolute Auto 0.4 0.1-1.2 X10*3/uL N Eosinophils Absolute Auto 0.4 0.0-0.4 X10*3/uL N Basophils Absolute Auto 0.0 0.0-0.2 X10*3/uL N NRBC Abs Auto 0.000 0.0-0.012 X10*3/uL N Basic Metabolic Panel Fastin g Reviewed date:01/10/2025 12:56:52 PM Interpretation: Performing Lab:[address] [phone] Notes/Report: Sodium 145 135-145 mmol/L N Potassium 3.8 3.3-5.1 mmol/L N Chloride 112 96-108 mmol/L H Carbon Dioxide 26 22-29 mmol/L N Anion Gap 11 12-20 L Blood Urea Nitrogen 7 9-16 mg/dL L Creatinine 0.96 0.5-1.4 mg/dL N Creatinine Clr Calc Pharmacy 60.1 eGFR (calculated [...] 15 mL/min/1.73m2 Glucose Fasting 95 60-99 mg/dL N Calcium 8.0 8.4-10.2 mg/dL L Pathology Reviewed date:01/12/2025 12:57:41 PM Interpretation: Performing Lab:[address] [phone] Notes/Report: Reason For Referral No Information Medications [...] spray in each nostril Nasally PRN Active Iron 325 (65 Fe) MG Tablet 1 tablet Oral ly Three times a Week Active Singulair 10 MG Tablet 1 tablet Orally O nce a day Active Atorvastatin Calcium 20mg Tablet 1/2 tablet Orally Once a day Active Immunizations Vaccine Route Administration Date Status Comme nts Flu vaccine no Preserv 3 and > Unknown 06/01/2015 Admin istered Influenza Unknown 04/15/2018 Administered Influenza Unknown 03/18/2022 Administered Influenza Unknown 12/09/2023 Refused Influenza Unknown 03/24/2024 Administered Social History Social History Additional Details Category Social Info Options Details Miscellaneous: Marital status: Occupation: retired Section Notes: Tobacco use is negative, alc ohol use is infrequent. Tobacco use is negative, alc ohol use is infrequent. Tobacco use is negative, alc ohol use is infrequent. Tobacco use is negative, alc ohol use is infrequent. Tobacco use is negative, alc ohol use is infrequent. Tobacco use is negative, alc ohol use is infrequent. Tobacco use is negative, alc ohol use is infrequent. Tobacco use is negative, alc ohol use is infrequent. Problems Problem Type SNOMED Code ICD Code Onset Dates Problem Status W/U Status Risk Notes Problem Information temporarily unavailable Colon cancer screening (Z12.11) Active confirmed Problem Information temporarily unavailable Personal history of colonic polyps (Z86.010) Active confirmed Problem Information temporarily unavailable Anemia (D64.9) Active confirmed Problem Information temporarily unavailable Long-term use of aspirin therapy (Z79.82) Active confirmed Problem Information temporarily unavailable Chronic gastritis (K29.50) Active confirmed Problem Information temporarily unavailable Long-term current use of high risk medication other than anticoagulant (Z79.899) Active confirmed Problem Information temporarily unavailable FH: colon cancer (Z80.0) Active confirmed Problem Information temporarily unavailable Hypertension, unspecified type (I10) Active confirmed Problem Information temporarily unavailable Acute anemia (D64.9) Active confirmed Vital Signs Temperature 98.2 degrees Fahrenheit 03/27/2025 Blood pressure diastolic 01 mm Hg 03/27/2025 Height 69.5 in 03/27/2025 Blood pressure systolic 001 mm Hg 03/27/2025 Weight 177.6 lbs 03/27/2025 BMI 25.85 kg/m2 03/27/2025 Encounters Encounter Location Date Provider Diagnosis [facility] [address] [facility] [place] [id number] 01/10/2025 Cedrick Justin Jr [facility] [address] [place] [phone] 11/09/2024 Cedrick Justin Jr Colon polyps K63.5 ; Anemia D64.9 and Colon cancer screening Z12.11 [facility] [address] [place] [phone] 03/27/2025 Cedrick Justin Jr Chronic gastritis K29.50 ; Long-term use of aspirin therapy Z79.82 and FH: colon cancer Z80.0 [facility] [address] [place] [phone] 01/03/2025 Cedrcik Justin Jr [facility] [address] [place] [phone] 01/08/2025 Cedrick Justin Jr [facility] [address] [place] [phone] 01/12/2025 Cedrick Justin Jr Assessments Encounter Date [...] then. He has no upper GI symptoms. 03/27/2025 Long-term use of aspirin therapy (ICD-10 - Z79.82) At this time, James is doing well. He will continue off his medications as above. We will see him in follow-up for office visit in 1 year. He will call if he has any problems. 03/27/2025 Chronic gastritis (ICD-10 - K29.50) At this time, James is doing well. He will continue off his medications as above. We will see him in follow-up for office visit in 1 year. He will call if he has any problems. 03/27/2025 FH: colon cancer (ICD-10 - Z80.0) At this time, James is doing well. He will continue off his medications as above. We will see him in follow-up for office visit in 1 year. He will call if he has any problems. 11/09/2024 Colon cancer screening (ICD-10 - Z12.11) [...] Provider Name:Cedrick licona Jr, 03/28/2026 09:40:00 AM, [address] [place] [address], [address], [place], [address], Insurance Providers Payer Name Payer Address Payer Phone Subscriber Number Group Number Insured Name Patient Relationship to Insured Coverage Start Date Coverage End Date [facility] [address] [place], [place] [id number] DEACON ROMO Self - patient is the insured [employer] [address] [place] [address] [phone] [id number] DEACON ROMO Self - patient is the insured Medical (General) History Medical History History ICD Code Colonoscopy 01/22, multiple adenomas, fol low-up optional based on age hypertension basal cell carcinoma BPH elevated cholesterol type II diabetes hearing loss anemia Surgical History Surgery Date(Month/Year) removal of basal cell carcinomas deviated septum repair cataract-lens implants both eyes lasik 1993 prostate surgery to enlarge the prostate Ear surgery triple bypass 11/2024 Hospitalization History Reason Date(Month/Year) triple bypass 11/2024
--- OUTSIDE RECORDS SUMMARY | 2025-05-08 07:21 | XMS_ITS | Patient Health Record ---
Author Organization Vini Mendoza MD Address [address] [place] [id number] Care Team Providers Care Gold Leaf Gilder Name Role Phone Vini Mendoza Primary Care Provider [phone] Allergies No Known Allergies Results Component Value Reference Range Notes Hemoglobin A1c Reviewed date:10/21/2024 09:43:33 AM Interpretation: Performing Lab: Notes/Report: Hemoglobin A1c 6.2 Hemoglobin A1c Reviewed date:04/03/2025 09:01:34 AM Interpretation: Performing Lab: Notes/Report: Hemoglobin A1c 5.2 Complete Blood Count Auto Di ff Reviewed date:07/04/2024 07:18:28 AM Interpretation:see back 07-01-24 Performing Lab:[facility], [address] [place] [phone] Notes/Report: White Blood Count 7.9 4.8-10.8 X10*3/uL [...] NRBC Abs Auto 0.000 0.0-0.012 X10*3/uL Comprehensive [place]. Panel Fa st Reviewed date:06/26/2024 04:58:35 PM Interpretation: Performing Lab:[facility], [address] [place] [phone] Notes/Report: Sodium 141 135-145 mmol/L Potassium 4.8 [...] Panel Reviewed date:06/25/2024 12:29:18 PM Interpretation: Performing Lab:[facility], [address] [place] [phone] Notes/Report: Triglycerides 138 <150 mg/dL Desirable Triglyceride: [...] (Free>4and<10) Reviewed date:06/25/2024 12:29:08 PM Interpretation: Performing Lab:[facility], [address] [place] [address] Notes/Report: PSA,Total (Free>4and<10) 0.67 0.00-4.00 ng/mL A [...] Random Reviewed date:06/25/2024 12:28:59 PM Interpretation: Performing Lab:[address] [address] Notes/Report: Creatinine Urine 225.05 Microalbumin Urine 44.0 Microalbum/Creatinine Ratio Ur 19.5 <30 ug/mg cr Albumin/Creatinine Ratio Reference Ranges: Normal: < 30 ug/mg creatinine Microalbuminuria: 30 - 300 ug/mg creatinine Clinical Albuminuria: > 300 ug/mg creatinine Hemoglobin A1c Reviewed date:06/24/2024 01:15:12 PM Interpretation: Performing Lab:[address] [address] Notes/Report: Hemoglobin A1c % 6.9 <6.0 % [...] average glucose, using the formula of the I3O-Zzptmzk Average Glucose study (ADAG), Diabetes Care, Vol.31,#8, Dec. 2007 UA ClnCatch+Micro w/rflx Cul t Reviewed date:06/26/2024 05:02:46 PM Interpretation: Performing Lab:[address] [address] Notes/Report: Urine, Clean Catch Color Urine Yellow Appearance Urine Clear PH 5.5 5.0-9.0 Glucose Urine UA Negative Negative mg/dL Urine Blood Negative Negative Specific [place] - Urine >= 1.030 1.005-1.025 Urine Protein [...] ff Reviewed date:10/14/2024 12:43:08 PM Interpretation: Performing Lab:[facility], [address] [place] [address] Notes/Report: White Blood Count 7.0 4.8-10.8 X10*3/uL [...] Reviewed date:10/21/2024 10:14:21 AM Interpretation:CBACK 10/21 Performing Lab:[facility], [address] [place] [phone] Notes/Report: Iron 20 45-160 mcg/dL Total Iron Binding Capacity 364 228-428 mcg/dL Percent Iron Saturation 5 15-50 % Unsaturated Iron Binding 344 Complete Blood Count Auto Di ff Reviewed date:01/02/2025 01:14:08 PM Interpretation: Performing Lab:[facility], [address] [place] [address] Notes/Report: White Blood Count 9.6 4.8-10.8 X10*3/uL [...] ff Reviewed date:01/05/2025 03:11:21 PM Interpretation: Performing Lab:[facility], [address] [place] [address] Notes/Report: White Blood Count 10.7 4.8-10.8 X10*3/uL [...] Interpretation: Performing Lab:[facility], [address] [place] [address] Notes/Report: White Blood Count 6.3 4.8-10.8 X10*3/uL [...] Interpretation: Performing Lab:[facility], [address] [place] [address] Notes/Report: Bilirubin Total 0.8 0.0-1.0 mg/dL Bilirubin Direct 0.3 0.0-0.5 mg/dL Aspartate Amino Transferase 46 5-37 U/L Alanine Aminotransferase 47 0-40 U/L Total Protein 6.2 6.5-8.0 g/dL Albumin Level 3.6 3.5-5.0 g/dL Alkaline Phosphatase 102 39-117 U/L Liver Panel Reviewed date:03/02/2025 12:33:15 PM Interpretation: Performing Lab:[facility], [address] [place] [phone] Notes/Report: Bilirubin Total 1.0 0.0-1.0 mg/dL Bilirubin Direct 0.3 0.0-0.5 mg/dL Aspartate Amino Transferase 41 5-37 U/L Alanine Aminotransferase 30 0-40 U/L Total Protein 6.2 6.5-8.0 g/dL Albumin Level 3.9 3.5-5.0 g/dL Alkaline Phosphatase 100 39-117 U/L Hepatitis A,B,C Profile Reviewed date:03/02/2025 12:33:25 PM Interpretation: Performing Lab:[address] [address] Notes/Report: Hepatitis A Antibody IgM Nonreactive Nonreactive IgM antibodies to HAV not detected; does not exclude early acute or recovered HAV infection. Hepatitis B Surface Antibody NONREACTIVE Nonreactive Nonreactive: < 8.00 mIU/mL Hepatitis B Core Antibody Nonreactive Nonreactive Hepatitis C Antibody Nonreactive Nonreactive Antibodies to HCV not detected; does not exclude early acute HCV infection. Hepatitis B Surface Antigen Negative Negative Blood Urea Nitrogen Reviewed date:05/05/2025 12:29:38 PM Interpretation: Performing Lab:[facility], [address] [place] [phone] Notes/Report: Blood Urea Nitrogen 12 9-16 mg/dL Creatinine Reviewed date:05/05/2025 12:29:30 PM Interpretation: Performing Lab:[address] [address] Notes/Report: Creatinine 0.91 0.5-1.4 mg/dL Estimated Glomerular Filt Rate > 60 Chronic Kidney Disease: Estimated GFR < 60 mL/min/1.73m2 Severe Kidney Disease: Estimated GFR < 15 mL/min/1.73m2 Complete Blood Count Auto Di ff Reviewed date:07/01/2024 04:25:27 PM Interpretation: Performing Lab:[address] [address] Notes/Report: White Blood Count 10.5 4.8-10.8 X10*3/uL [...] PROFILE Reviewed date:07/03/2024 03:27:36 PM Interpretation: Performing Lab:[facility], [address] [place] [phone] Notes/Report: Iron 35 45-160 mcg/dL Total Iron Binding Capacity 346 228-428 mcg/dL Percent Iron Saturation 10 15-50 % Unsaturated Iron Binding 311 Glucose, finger stick Reviewed date:10/21/2024 09:36:02 AM Interpretation: Performing Lab: Notes/Report: Value 124 Glucose, finger stick Reviewed date:11/18/2024 09:14:41 AM Interpretation: Performing Lab: Notes/Report: Value 118 Complete Blood Count Auto Di ff Reviewed date:12/30/2024 01:50:51 PM Interpretation: Performing Lab:[facility], [address] [place] [phone] Notes/Report: White Blood Count 8.8 4.8-10.8 X10*3/uL [...] Panel Reviewed date:12/30/2024 08:57:33 AM Interpretation: Performing Lab:[facility], [address] [place] [phone] Notes/Report: Bilirubin Total 0.7 0.0-1.0 mg/dL Bilirubin Direct 0.3 0.0-0.5 mg/dL Aspartate Amino Transferase 157 5-37 U/L Alanine Aminotransferase 136 0-40 U/L Total Protein 5.7 6.5-8.0 g/dL Albumin Level 3.2 3.5-5.0 g/dL Alkaline Phosphatase 148 39-117 U/L Complete Blood Count Auto Di ff Reviewed date:01/23/2025 12:30:04 PM Interpretation: Performing Lab:[facility], [address] [place] [address] Notes/Report: White Blood Count 9.6 4.8-10.8 X10*3/uL [...] ff Reviewed date:02/02/2025 04:51:19 PM Interpretation: Performing Lab:[facility], [address] [place] [address] Notes/Report: White Blood Count 6.9 4.8-10.8 X10*3/uL [...] NRBC Abs Auto 0.000 0.0-0.012 X10*3/uL Comprehensive [place]. Panel Fa st Reviewed date:02/23/2025 10:06:10 AM Interpretation:02-21-2025 Performing Lab:[facility], [address] [place] [phone] Notes/Report: Sodium 141 135-145 mmol/L Potassium 3.9 [...] 114 39-117 U/L Glucose, finger stick Reviewed date:04/03/2025 08:54:14 AM Interpretation: Performing Lab: Notes/Report: Value 146 Occult Blood, Stool, Guaiac Reviewed date:07/20/2024 08:37:52 AM Interpretation:Negative Performing Lab: Notes/Report: Negative Occult Blood, Stool, Guaiac NegX3 Complete Blood Count Auto Di ff Reviewed date:12/30/2024 11:59:39 AM Interpretation: Performing Lab:[facility], [address] [place] [address] Notes/Report: White Blood Count 7.3 4.8-10.8 X10*3/uL [...] B12 Reviewed date:07/03/2024 03:27:05 PM Interpretation: Performing Lab:[facility], [address] [place] [phone] Notes/Report: Vitamin B12 245 200-900 pg/mL NORMAL 200-900 PG/ML INDETERMINATE 160-199 PG/ML DEFICIENT < 160 PG/ML Folate Reviewed date:07/03/2024 03:27:13 PM Interpretation: Performing Lab:[facility], [address] [place] [phone] Notes/Report: Folate 11.5 > or = 4.0 ng/mL Reference Values: > or = 4.0 ng/mL < 4.0 ng/mL suggests folate deficiency Methotrexate, aminopterin and folinic acid (leucovorin) are chemotherapeutic agents whose molecular structures are similar to folate; therefore, the Classifications Officer Cc/Cm folate assay cannot be used for patients using these drugs. Complete Blood Count Auto Di ff Reviewed date:12/22/2024 12:43:17 PM Interpretation: Performing Lab:[facility], [address] [place] [address] Notes/Report: White Blood Count 17.2 4.8-10.8 X10*3/uL [...] Panel Reviewed date:12/22/2024 01:05:46 PM Interpretation: Performing Lab:[facility], [address] [place] [phone] Notes/Report: Sodium 139 135-145 mmol/L Potassium 4.4 [...] Panel Reviewed date:12/29/2024 02:32:21 PM Interpretation: Performing Lab:[facility], [address] [place] [address] Notes/Report: Sodium 141 135-145 mmol/L Potassium 5.2 [...] date:01/10/2025 03:43:11 PM Interpretation: Performing Lab: Notes/Report: [address] [address] Ultrasound Report Signed Patient: Deacon Romo MR#: [id number] 682 : 1940 Acct:[id number] Age/Sex: 84 / M ADM Date: 12/30/24 Loc: .[place] Attending Dr: Vini Mendoza MD Ordering Physician: Thomas Araujo MD Date of Service: 12/30/24 Procedure(s): US renal BI Accession Number(s): [id number] cc: Thomas Araujo MD; Vini Mendoza MD [...] 01/10/25 1319 DD/ 1253 TD/TT: 12/30/24 1301 Ceramic Tiler: [place] [address] Ultrasound Report Signed Patient: Ana María Romo MR#: [id number] 682 : 1940 Acct:[id number] Age/Sex: 84 / M ADM Date: 12/30/24 Loc: .[place] Attending Dr: Vini Mendoza MD Ordering Physician: Thomas Araujo MD Date of Service: 12/30/24 Procedure(s): US renal BI Accession Number(s): [id number] cc: Ramsey Araujo MD; Vini Mendoza MD [...] 01/10/25 1319 DD/ 1253 TD/TT: 12/30/24 1301 Ceramic Tiler: Complete Blood Count Auto Di ff Reviewed date:01/07/2025 04:59:35 PM Interpretation: Performing Lab:[facility], [address] [place] [address] Notes/Report: White Blood Count 8.5 4.8-10.8 X10*3/uL [...] INR Reviewed date:01/06/2025 08:57:34 AM Interpretation: Performing Lab:[facility], [address] [place] [address] Notes/Report: Prothrombin Time 14.1 10.9-12.4 SEC [employer] [...] OBSX1 Reviewed date:01/06/2025 04:35:49 PM Interpretation: Performing Lab:[facility], [address] [place] [phone] Notes/Report: OBS1 POSITIVE NEGATIVE Liver Panel Reviewed date:01/06/2025 04:38:51 PM Interpretation: Performing Lab:[facility], [address] [place] [phone] Notes/Report: Bilirubin Total 1.3 0.0-1.0 mg/dL Bilirubin Direct 0.5 0.0-0.5 mg/dL Aspartate Amino Transferase 62 5-37 U/L Alanine Aminotransferase 133 0-40 U/L Total Protein 6.2 6.5-8.0 g/dL Albumin Level 3.7 3.5-5.0 g/dL Alkaline Phosphatase 190 39-117 U/L Basic Metabolic Panel Reviewed date:01/06/2025 04:51:22 PM Interpretation: Performing Lab:[facility], [address] [place] [phone] Notes/Report: Sodium 141 135-145 mmol/L Potassium 4.6 [...] Magnesium Reviewed date:01/06/2025 04:35:59 PM Interpretation: Performing Lab:[facility], [address] [place] [phone] Notes/Report: Magnesium 1.8 1.6-2.6 mg/dL Glucose, Whole Blood Reviewed date:01/06/2025 04:35:38 PM Interpretation: Performing Lab:[facility], [address] [place] [address] Notes/Report: Glucose, Whole Blood 93 60-115 mg/dL METER # : [id number] Type and Screen Reviewed date:01/07/2025 04:52:18 PM Interpretation: Performing Lab:[facility], [address] [place] [phone] Notes/Report: Results at Issue Units as of [...] Cells Reviewed date:01/07/2025 04:52:26 PM Interpretation: Performing Lab:[facility], [address] [place] [phone] Notes/Report: Red Blood Cells [id number] RC Red Blood Cells TRANSFUSED 01/07/25 0807 Red Blood Cells [id number] RC Red Blood Cells TRANSFUSED 01/06/25 1118 Glucose, Whole Blood Reviewed date:01/07/2025 04:52:34 PM Interpretation: Performing Lab:[facility], [address] [place] [address] Notes/Report: Glucose, Whole Blood 83 60-115 mg/dL METER # : [id number] Glucose, Whole Blood Reviewed date:01/07/2025 04:51:39 PM Interpretation: Performing Lab:[facility], [address] [place] [address] Notes/Report: Glucose, Whole Blood 98 60-115 mg/dL METER # : [id number] Complete Blood Count no Diff Reviewed date:01/07/2025 04:54:34 PM Interpretation: Performing Lab:[facility], [address] [place] [address] Notes/Report: White Blood Count 5.7 4.8-10.8 X10*3/uL [...] Panel Reviewed date:01/07/2025 04:52:10 PM Interpretation: Performing Lab:[facility], [address] [place] [address] Notes/Report: Bilirubin Total 1.7 0.0-1.0 mg/dL Bilirubin Direct 0.5 0.0-0.5 mg/dL Aspartate Amino Transferase 43 5-37 U/L Alanine Aminotransferase 91 0-40 U/L Total Protein 5.2 6.5-8.0 g/dL Albumin Level 3.0 3.5-5.0 g/dL Alkaline Phosphatase 152 39-117 U/L Basic Metabolic Panel Reviewed date:01/07/2025 04:54:53 PM Interpretation: Performing Lab:[facility], [address] [place] [address] Notes/Report: Sodium 139 135-145 mmol/L Potassium 3.8 [...] Blood Reviewed date:01/07/2025 04:53:48 PM Interpretation: Performing Lab:[facility], [address] [place] [address] Notes/Report: Glucose, Whole Blood 91 60-115 mg/dL METER # : [id number] US abdomen comp w elastograp hy Reviewed date:01/09/2025 05:55:24 PM Interpretation: Performing Lab: Notes/Report: [address] [address] Ultrasound Report Signed Patient: Deacon Romo MR#: [id number] 682 : 1940 Acct:[id number] Age/Sex: 84 / M ADM Date: 01/06/25 Loc: [facility] 473-[address]: Krishna Lemon MD Ordering Physician: Leo Guo MD Date of Service: 01/07/25 Procedure(s): US abdomen comp w elastography Accession Number(s): [id number] cc: Vini Mendoza MD; Leo Guo MD [...] 01/09/25 0713 DD/ 0800 TD/TT: 01/07/25 0830 Ceramic Tiler: [place] [address] Ultrasound Report Signed Patient: Ana María Romo MR#: [id number] 682 : 1940 Acct:[id number] Age/Sex: 84 / M ADM Date: 01/06/25 Loc: [facility] 473-[address]: Suzan Lemon MD Ordering Physician: Leo Guo MD Date of Service: 01/07/25 Procedure(s): US abd omen comp w elastography Accession Number(s): [id number] cc: Vini Mendoza MD; Leo Guo MD [...] 01/09/25 0713 DD/ 0800 TD/TT: 01/07/25 0830 Ceramic Tiler: LISA XR chest 1V Reviewed date:01/07/2025 04:49:50 PM Interpretation: Performing Lab: Notes/Report: [address] [address] XRay Report Signed Patient: Deacon Romo MR#: [id number] 682 : 1940 Acct:[id number] Age/Sex: 84 / M ADM Date: 01/06/25 Loc: [facility]: Krishna Lemon MD Ordering Physician: Krishna Lemon MD Date of Service: 01/07/25 Procedure(s): XR chest 1V Accession Number(s): [id number] cc: Vini Mendoza MD; Krishna Lemon MD [...] 01/07/25 1147 DD/ 1146 TD/TT: 01/07/25 1146 Ceramic Tiler: [address] [address] XRay Report Signed Patient: Ana María Romo MR#: [id number] 682 : 1940 Acct:[id number] Age/Sex: 84 / M ADM Date: 01/06/25 [facility]: Suzan Lemon MD Ordering Physician: Krishna Lemon MD Date of Service: 01/07/25 Procedure(s): XR chest 1V Accession Number(s): [id number] cc: Vini Mendoza MD; Krishna Lemon MD [...] 01/07/25 1147 DD/ 1146 TD/TT: 01/07/25 1146 Ceramic Tiler: Glucose, Whole Blood Reviewed date:01/07/2025 04:50:31 PM Interpretation: Performing Lab:[address] [address] Notes/Report: Glucose, Whole Blood 123 60-115 mg/dL METER # : [id number] Glucose, Whole Blood Reviewed date:01/07/2025 04:49:08 PM Interpretation: Performing Lab:[facility], [address] [place] [address] Notes/Report: Glucose, Whole Blood 123 60-115 mg/dL METER # : [id number] Glucose, Whole Blood Reviewed date:01/08/2025 02:53:57 PM Interpretation: Performing Lab:[facility], [address] [place] [address] Notes/Report: Glucose, Whole Blood 135 60-115 mg/dL METER # : [id number] Complete Blood Count no Diff Reviewed date:01/08/2025 02:53:57 PM Interpretation: Performing Lab:[facility], [address] [place] [phone] Notes/Report: White Blood Count 5.8 4.8-10.8 X10*3/uL [...] Panel Reviewed date:01/08/2025 02:53:57 PM Interpretation: Performing Lab:[address] [address] Notes/Report: Sodium 140 135-145 mmol/L Potassium 4.1 [...] Blood Reviewed date:01/08/2025 02:53:57 PM Interpretation: Performing Lab:[address] [address] Notes/Report: Glucose, Whole Blood 116 60-115 mg/dL METER # : [id number] Glucose, Whole Blood Reviewed date:01/08/2025 02:53:57 PM Interpretation: Performing Lab:[facility], [address] [place] [phone] Notes/Report: Glucose, Whole Blood 134 60-115 mg/dL METER # : [id number] Glucose, Whole Blood Reviewed date:01/09/2025 05:55:24 PM Interpretation: Performing Lab:[facility], [address] [place] [address] Notes/Report: Glucose, Whole Blood 99 60-115 mg/dL METER # : [id number] Glucose, Whole Blood Reviewed date:01/09/2025 05:55:24 PM Interpretation: Performing Lab:[facility], [address] [place] [address] Notes/Report: Glucose, Whole Blood 137 60-115 mg/dL METER # : [id number] Complete Blood Count Auto Di ff Reviewed date:01/09/2025 11:56:45 AM Interpretation: Performing Lab:[facility], [address] [place] [phone] Notes/Report: White Blood Count 6.1 4.8-10.8 X10*3/uL [...] Blood Reviewed date:01/09/2025 05:50:19 PM Interpretation: Performing Lab:[facility], [address] [place] [address] Notes/Report: Glucose, Whole Blood 100 60-115 mg/dL METER # : [id number] Pathology Reviewed date:01/11/2025 02:08:52 PM Interpretation: Performing Lab:[facility], [address] [place] [address] Notes/Report: ----- Name: Nury Romo Age/Sex: 84/M : 1940 Unit#: [id number] Attend Dr: Hal Monroy Re01/06/25 Status : DIS IN Location: [facility] 473-1 Disch: 01/10/25 ----- SPEC : [id number] RECD : 01/09/25-1530 STATUS: STANISLAW CARDOZO NUM: [id number] DEISY: 01/09/25-1418 [facility] DR: Leo Guo MD ENTERED: [...] in specimen B, supported by AB/PAS stains surendra beckett no foveolar metaplasia is seen in [...] Nury Romo Age/Sex: 84/M : 1940 Unit#: [id number] [facility] Status : DIS IN Location: [facility] 473-1 Disch: 01/10/25 ----- SPEC : [id number] RECD : 01/09/25 STATUS: STANISLAW CARDOZO NUM: [id number] DEISY: 01/09/25-1418 [facility] DR: Leo Guo MD ENTERED: 01/09/25- 36 SP TYPE: Surgical OTHR DR: Vnii Mendoza MD, Jaehyun MD ORDERED: HE Stain/6, Gross Micro L4/2, IHC, Special st. 2/2, H. pylori, AB/PAS/2 IHC S/NG Disclaimer NOTE: Unless otherwi se stated, all tissue is formalin-fixed and paraffin-embedded. Some or all of the immunohistochemical tests reported herein may have been developed and their performance characteristics determined by [facility]. They have not been cleared or appr viry by the U.S. Food and Drug Administration (FDA). However, the FDA has determined that such clearance or approval is not necessary. This laboratory is certified under the Clinical Laboratory Improvement Amendments of 1988 (CLIA) as qualified to perform high complexity clinical laboratory testing. Copies To: Vini Mendoza MD [facility] [address] [place] [address] [address] [place] [address] Krishna Lemon MD [address] [place] [address] Leo Guo MD [address] [place] [address] ----- Signed (signature on file) Naty Younger MD 01/11/25 0823 ----- END OF REPORT Hold Green Gel Reviewed date:01/09/2025 11:57:28 AM Interpretation: Performing Lab:[facility], [address] [place] [phone] Notes/Report: Hold Green Gel See Note Specimen held untested for 24 hours; Call to request Chemistry testing. Glucose, Whole Blood Reviewed date:01/09/2025 05:49:26 PM Interpretation: Performing Lab:[facility], [address] [place] [address] Notes/Report: Glucose, Whole Blood 98 60-115 mg/dL METER # : [id number] Glucose, Whole Blood Reviewed date:01/09/2025 05:50:11 PM Interpretation: Performing Lab:[facility], [address] [place] [phone] Notes/Report: Glucose, Whole Blood 122 60-115 mg/dL METER # : [id number] Glucose, Whole Blood Reviewed date:01/10/2025 06:01:42 PM Interpretation: Performing Lab:[facility], [address] [place] [address] Notes/Report: Glucose, Whole Blood 139 60-115 mg/dL METER # : [id number] Complete Blood Count Auto Di ff Reviewed date:01/10/2025 06:02:14 PM Interpretation: Performing Lab:[facility], [address] [place] [phone] Notes/Report: White Blood Count 4.9 4.8-10.8 X10*3/uL [...] g Reviewed date:01/10/2025 06:02:14 PM Interpretation: Performing Lab:[facility], [address] [place] [phone] Notes/Report: Sodium 145 135-145 mmol/L Potassium 3.8 [...] Blood Reviewed date:01/10/2025 06:02:14 PM Interpretation: Performing Lab:[facility], [address] [place] [address] Notes/Report: Glucose, Whole Blood 97 60-115 mg/dL METER # : [id number] Pathology Reviewed date:01/11/2025 02:12:24 PM Interpretation: Performing Lab:[facility], [address] [place] [id number] Notes/Report: ----- Name: Nury Romo Age/Sex: 84/M : 1940 Unit#: [id number] Attend Dr: Hal Monroy Re01/06/25 Status : DIS IN Location: [facility] 473-1 Disch: 01/10/25 ----- SPEC : [id number] RECD : 01/10/25-1301 STATUS: STANISLAW REQ NUM: [id number] DEISY: 01/10/25-1237 [facility] DR: Cedrick Butt MD ENTERED: [...] developed and their performance characteristics determined by [facility]. They have not been cleared or appr viry by the U.S. Food and Drug Administration (FDA). However, the FDA has determined that such clearance or approval is not necessary. This laboratory is certified under the Clinical Laboratory Improvement Amendments of 1988 (CLIA) as qualified to perform high complexity clinical laboratory testing. Copies To: Hal Monroy [address] [place] [address] [email or web address] CONTINUED ON NEXT PAGE ----- Name: Nury Romo Age/Sex: 84/M : 1940 Unit#: [id number] Attend Dr: Hal Monroy Re01/06/25 Status : DIS IN Location: [facility] 473-1 Disch: 01/10/25 ----- SPEC : [id number] RECD : 01/10/25-130 STATUS: STANISLAW CARDOZO NUM: [id number] DEISY: 01/10/25-[address]: Cedrick Butt MD ENTERED: 01/10/25-13 13 SP TYPE: Surgical OTHR DR: Hal Monroy Glen P MD ORDERED: HE Stain/3, Gross Micro L4 Copies To: (Continued) Vini Mendoza MD [facility] [address] [place] [address] Cedrick Butt MD [facility] [address] [place] [address] ----- Signed (signature on file) Nichole Durant 01/11/25 1301 ----- END OF REPORT Glucose, Whole Blood Reviewed date:01/10/2025 03:32:59 PM Interpretation: Performing Lab:[facility], [address] [place] [address] Notes/Report: Glucose, Whole Blood 95 60-115 mg/dL METER # : [id number] US abdomen complete Reviewed date:03/09/2025 08:08:14 AM Interpretation: Performing Lab: Notes/Report: [facility] [address] [place] [address] Ultrasound Report Signed Patient: Deacon Romo MR#: [id number] 682 : 1940 Acct:[id number] Age/Sex: 84 / M ADM Date: 03/06/25 Loc: HO.US Attending Dr: Vini Mendoza MD Ordering Physician: Vini Mendoza MD Date of Service: 03/06/25 Procedure(s): US abdomen complete Accession Number(s): [id number] cc: Vini Mendoza MD Reason for Exam: ELEVATED LIVER CLINICAL HISTORY: ELEVATED LIVER US abdomen complete Comparison: US/AR/SR - US ABDOMEN COMP W ELASTOGRAPHY - 01/07/25 08:11 EDT US/SR - US ABDOMEN LIMITED - 01/02/23 10:54 EDT Findings: The visualized pancreas is normal. The visualized aorta and inferior vena cava are normal caliber. The liver is normal in size and echotexture. There is no intrahepatic bile duct dilatation. The common duct is 3.0 mm in diameter. The gallbladder is normal. There is no sonographic Chavez sign. The main portal vein is antegrade. The right kidney is 12 cm in length. Multiple renal cysts. There is a hypoechoic area in the midpole kidney. Possible small perinephric fluid. The left kidney is 13.6 cm in length. 8 mm cyst. The spleen is mildly enlarged. No ascites. IMPRESSION: Liver is unremarkable. Possible prominent column of Daniel of the right kidney and small perinephric fluid. Further evaluation by contrast CT as indicated to exclude other possibilities given that column of Daniel is more commonly seen on the left side. This document has been electronically signed by: Pierre Neal MD on 03/06/2025 18:19:38 Dictated By: Pierre Neal MD Signed By: <Electronically signed by Pierre Neal MD in OV> 03/06/251819 DD/ 18 TD/TT: 03/06/251818 Ceramic Tiler: [address] [address] Ultrasound Report Signed Patient: Ana María Romo MR#: [id number] 682 : 1940 Acct:[id number] Age/Sex: 84 / M ADM Date: 03/06/25 Loc: HO.US Attending Dr: Vini Mendoza MD Ordering Physician: Vini Mendoza MD Date of Service: 03/06/25 Procedure(s): US abd omen complete Accession Number(s): [id number] cc: Vini Mendoza MD Reason for Exam: YUE VATED LIVER CLINICAL HISTORY: ELEVATED LIVER US abdomen complete Comparison: US/AR/SR - US ABDOMEN COMP W ELASTOGRAPHY - 01/07/25 08:11 EDT US/SR - US ABDOMEN LIMITED - 01/02/23 10:54 EDT Findings: The visualized pancr eas is normal. The visualized aorta and inferior vena cava are normal caliber. The liver is normal in size and echotexture. There is no intrahep atic bile duct dilatation. The common duct is 3 .0 mm in diameter. The gallbladder is normal. There is no sonographic Chavez sign. The main portal vein is antegrade. The right kidney is 12 cm in length. Multiple renal cysts. There is a hypoechoic area in t he midpole kidney. Possible small perinephric fluid. The left kidney is 1 3.6 cm in length. 8 mm cyst. The spleen is mildly enlarged. No ascites. IMPRESSION: Liver is unremarkable. Possible prominent c olumn of Daniel of the right kidney and small perinephric fluid. Further evaluation by contrast CT as indicated to exclude other possibilities given that column of Daniel is more commonly seen on the left side. 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: Reason For Referral Reason Iron deficiency anem ia Diagnosis 1 Iron deficiency anem ia (D50.9) Referral Organization Vini Mendoza MD Referring Provider First Name Vini Referring Provider Last Name Kelly Referring Provider Speciality Internal M edicine Referred Provider Leo Guo Referred Provider Specialty Gastroentero logy General Notes Cynthia Rich 0 10/21/2024 10:19:56 AM >referral info and labs faxed, Cynthia Rich 10/28/2024 03:00:26 PM >spoke with patient he said he is being put on a waiting list to get in sooner Referral Priority Routine Referral Appointment Date 01/25/2025 Reason chest pain Diagnosis 1 Chest pain (R07.9) Referral Organization Vini Mendoza MD Referring Provider First Name Vini Referring Provider Last Name Kelly Referring Provider Speciality Internal edicine Referred Provider Elliot Hogue Referred Provider Specialty Cardiovascul ar Disease General Notes Cytnhia Rich 0 10/21/2024 10:22:45 AM >info faxed, [...] ONCE A DAY for 180 Active Ozempic (0.25 or 0.5 MG/DOSE) 2 MG/3ML as directed Subcutaneous 0.25 mg weekly fminth then .5mg weekly for 30 days 02/22/2024 Not-Taking Nitrostat 0.4 MG 1 tablet under the tongue and allow to dissolve as needed. Take every 5 minutes up to 3 times if chest pain persists Sublingual Three times a day for 30 days 10/21/2024 Active Valtrex 1 GM 2 tablet Orally ever y 12 hrs for 1 dose 05/07/2012 Not-Taking Aspirin 81 81 MG 1 tablet Orally Once a day for 30 day(s) 12/29/2024 Active Ozempic (2 MG/DOSE) 8 MG/3ML INJECT 2MG UNDER THE SKIN ONCE A WEEK for 28 Active Montelukast Sodium 10 MG TAKE ONE TABLET BY MOUTH EVERY EVENING for 90 days Active Finasteride 5 MG 1 tablet Orally Once a day for 90 days Active Iron 325 (65 Fe) MG 1 tablet Orally Thre e times a Week Active Omeprazole 20 MG 1 capsule 1/2 to 1 h our before morning meal Orally twice a day for 90 days 12/29/2024 Active OneTouch Ultra Test TEST BLOOD GLUCOSE T WICE A DAY for 50 Active Atorvastatin Calcium 40 MG TAKE ONE TABLET BY MOUTH EVERY DAY Orally for 90 days Active OneTouch Delica Lancing Dev as directed for 50 03/03/2013 Active Ozempic (1 MG/DOSE) 4 MG/3ML 1 mg Subcutaneous weekly for 30 days 02/23/2025 Active Xyzal Allergy 24HR 5 MG 1 tablet in the evening Orally Once a day for 30 day(s) Active Metoprolol Succinate ER 25 MG 1 tablet Orally twice a day for 30 days Active Immunizations Vaccine Route Administration Date Status [...] at [facility] on [facility] Fluarix Quadrivalent IM Intramuscular 02/11/2016 Administered Shingles Unknown 03/29/2009 Administered Fluarix Quadrivalent IM Intramuscular 02/23/2017 Administered Shingrix IM Intramuscular 02/08/2018 Administered pt wa given the vaccine at [facility] on [facility]. Flu Vaccine Unknown 02/08/2018 Administered pt was give n the vaccine at [employer] [facility] on [facility]. Shingrix IM Intramuscular 05/17/2018 Administered pt was given the vaccine at [facility] in [place]. PPSV23 (Pnemovax) IM Intramuscular 09/10/2018 Administered Fluarix [...] Problem Status W/U Status Risk Notes Problem 95271997 Prostatism (N40.0) Active confirmed Problem 589276764 Asthmatic bronch itis (J45.909) Active confirmed Problem Unstable angina (4650898) Unstable angina (I20.0) Active confirmed Problem 72346462 Essential hypert ension (I10) Active confirmed Problem 49417323 Type 2 diabetes mellitus without complication (E11.9) Active confirmed Problem 380674810 Low HDL (under 4 0) (E78.6) Active confirmed Problem Biochemically recurrent prostate cancer (disorder) (69844592610783 1) Rising PSA level (R97.2) Active confirmed Problem Irregular heart beat (176129291) Irregular heart beat (I49.9) Active confirmed Problem Iron deficiency anemia (87233440) Iron deficiency anemia (D50.9) Active confirmed Problem Abnormal liver function (68233752) Abnormal liver function (K76.89) Active confirmed Problem 15663713 Sleep apnea, unspecified type (G47.30) Active confirmed Problem 378364916 Pure hypercholesterolemia (E78.00) Active confirmed Problem 35316805 Seasonal allergi c rhinitis due to pollen (J30.1) Active confirmed Problem 923049530 Adenomatous poly p of colon, unspecified part of colon (D12.6) Active confirmed Problem 162084779 BMI 32.0-32.9,ad ult (Z68.32) Active confirmed Problem 35364215 Bilateral hearin g loss, unspecified hearing loss type (H91.93) Active confirmed Problem Ultrasound scan abnormal (129125443) Abnormal ultrasound (R93.89) Active confirmed Vital Signs Blood pressure diastolic 80 mm Hg 04/03/2025 carol ght is up 7 pounds since 03-06-25 Height 70 in 04/03/2025 weight is up 7 pounds since 03-06-25 Blood pressure systolic 112 mm Hg 04/03/2025 weig ht is up 7 pounds since 03-06-25 Weight 181 lbs 04/03/2025 weight is up 7 pounds since 03-06-25 BMI 25.97 kg/m2 04/03/2025 weight is up 7 pounds since 03-06-25 Encounters Encounter Location Date Provider Diagnosis Vini Mendoza MD [address] [place] [address] [id number] 06/24/2024 Vini Mendoza Blood tests for rout ine general physical examination Z00.00 ; Essential hypertension I10 ; Type 2 diabetes mellitus without complication E11.9 ; Pure hypercholesterolemia E78.00 and Prostatism N40.0 Vini Mendoza MD [address] [place] [address] [id number] 10/14/2024 Vini Mendoza Iron deficiency E61. 1 Vini Mendoza MD [address] [place] [address] [id number] 01/02/2025 Vini Mendoza Rectal bleed K62.5 Vini Mendoza MD [address] [place] [address] [id number] 01/05/2025 Vini Mendoza Anemia D64.9 Vini Mendoza MD [address] [place] [address] Drive [address] [place] [address] [id number] 02/21/2025 Vini Mendoza Iron deficiency anem ia D50.9 and Elevated liver function tests R79.89 Vini Mendoza MD [address] [place] [address] [id number] 03/02/2025 Vini Mendoza Elevated liver funct ion tests R79.89 Vini Mendoza MD [address] [place] [address] [id number] 05/05/2025 Vini Mendoza Blood tests prior to treatment or procedure Z01.812 Vini Mendoza MD [address] [place] [address] [id number] 06/10/2024 Vini Mendoza Viral URI J06.9 Vini Mendoza MD [address] [place] [address] [id number] 07/01/2024 Vini Mendoza Mild anemia D64.9 ; Annual physical exam Z00.00 ; Type 2 diabetes mellitus without complication E11.9 ; Pure hypercholesterolemia E78.00 ; Prostatism N40.0 ; Colon cancer screening Z12.11 and Depression screening Z13.31 Vini Mendoza MD [address] [place] [address] [id number] 07/08/2024 Vini Mendoza Iron deficiency E61. 1 Vini Mendoza MD [address] [place] [address] [id number] 10/21/2024 Vini Mendoza Type 2 diabetes arabella itus without complication E11.9 ; Iron deficiency anemia D50.9 and Chest pain R07.9 Vini Mendoza MD [address] [place] [address] [id number] 11/18/2024 Vini Mendoza Type 2 diabetes arabella itus without complication E11.9 and Chest pain R07.9 Vini Mendoza MD [address] [place] [address] [id number] 12/05/2024 Vini Mendoza Unstable angina I20. 0 Vini Mendoza MD [address] [place] [address] [id number] 12/29/2024 Vini Mendoza Elevated LFTs R79.89 ; Rectal bleeding K62.5 ; History of atrial fibrillation Z86.79 and Elevated liver enzymes R74.8 Vini Mendoza MD [address] [place] [address] [id number] 01/23/2025 Vini Mendoza Anemia D64.9 Vini Mendoza MD [address] [place] [address] [id number] 02/02/2025 Vini Mendoza Anemia D64.9 ; Weakn ess R53.1 and Encounter for administration of vaccine Z23 Vini Mendoza MD [address] [place] [address] [id number] 02/23/2025 Vini Mendoza Type 2 diabetes arabella itus without complication E11.9 ; Rectal bleeding K62.5 ; Pure hypercholesterolemia E78.00 ; Elevated LFTs R79.89 and Anemia D64.9 Vini Mendoza MD [address] [place] [address] [id number] 03/06/2025 Vini Mendoza Weight loss R63.4 an d Type 2 diabetes mellitus without complication E11.9 Vini Mendoza MD [address] [place] [address] [id number] 04/03/2025 Vini Mendoza Type 2 diabetes arabella itus without complication E11.9 and 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 Vini Mendoza MD [address] [place] [address] [id number] 05/17/2024 Vini Mendoza MD [address] [place] [address] [id number] 07/03/2024 Vini Mendoza MD [address] [place] [address] [id number] 07/08/2024 Vini Mendoza MD [address] [place] [address] [id number] 07/19/2024 Vini Mendoza Colon cancer screeni ng Z12.11 Vini Mendoza MD [address] [place] [address] [id number] 07/19/2024 Vini Mendoza MD [address] [place] [address] [id number] 12/19/2024 Vini Mendoza MD [address] [place] [address] [id number] 12/30/2024 Vini Mendoza Elevated LFTs R79.89 and Rectal bleeding K62.5 Vini Mendoza MD [address] [place] [address] [id number] 12/30/2024 Vini Mendoza MD [address] [place] [address] [id number] 01/12/2025 Vini Mendoza MD [address] [place] [address] [id number] 01/12/2025 Vini Mendoza Pure hypercholestero lemia E78.00 Vini Mendoza MD [address] [place] [address] [id number] 01/16/2025 Vini Mendoza MD [address] [place] [address] [id number] 02/03/2025 Vini Mendoza MD [address] [place] [address] [id number] 02/21/2025 Vini Mendoza MD [address] [place] [address] [id number] 02/24/2025 Vini Mendoza MD [address] [place] [address] [id number] 02/24/2025 Vini Mendoza MD [address] [place] [address] [id number] 03/09/2025 Vini Mendoza Abnormal liver funct ion K76.89 and Abnormal ultrasound R93.89 Vini Mendoza MD [address] [place] [address] [id number] 03/14/2025 Vini Mendoza Assessments Encounter Date Diagnosis (ICD Code) Assessment Notes Treatment Notes Treatment Clinical Notes Section Notes 06/24/20[address] tests [address] ine general physical examination (ICD-10 - Z00.00) 06/24/2024 Essential hypertensi on (ICD-10 - I10) 10/14/2024 Iron deficiency (ICD -10 - E61.1) 01/02/2025 Rectal bleed (ICD-10 - K62.5) 01/05/2025 Anemia (ICD-10 - D64.9) 02/21/2025 Iron deficiency anem ia (ICD-10 - D50.9) 03/02/2025 Elevated liver funct ion tests (ICD-10 - R79.89) 05/05/2025 Blood tests prior to treatment or procedure (ICD-10 - Z01.812) 06/10/2024 Viral URI (ICD-10 - J06.9) is [...] and to try nitro/ order faxed to [facility] CS dept 12/05/2024 Unstable angina (ICD -10 - I20.0) will send by ambulance down to [facility] Total time spent on the [...] and apixaban and start a baby asa 01/23/2025 Anemia (ICD-10 - D64.9) pend ing labs Total time spent on the date of the encounter is 25 minutes including both face to face time spent and time spent reviewing documentation, pertinent lab data, studies and counseling the patient. 02/02/2025 Anemia (ICD-10 - D64.9) no l [...] Rectal bleeding (ICD -10 - K62.5) stable 03/06/2025 Weight loss (ICD-10 - R63.4) still no improvement with appetitie. doesn't get pleasure out of food. have reviewed the causes and it is common after bypass surgery, patient verbalized understanding to d/c medication 04/03/2025 Type 2 diabetes mellitus without complication (ICD-10 - E11.9) 04/03/2025 History of coronary artery bypass graft (ICD-10 - Z95.1) following with cardiology 07/19/2024 Colon cancer screeni ng (ICD-10 - Z12.11) 12/30/2024 Elevated LFTs (ICD-1 0 - R79.89) 01/12/2025 Pure hypercholesterolemia (ICD-10 - E78.00) 03/09/2025 Abnormal liver funct ion (ICD-10 - K76.89) Order faxed to Centralized scheduling 06/24/2024 Type 2 diabetes mellitus without complication [...] - E78.00) stable, will continue current regiment 03/06/2025 Type 2 diabetes mellitus without complication (ICD-10 - E11.9) stop the metformin, patient verbalized understanding of instruction to d/c medication 12/30/2024 Rectal bleeding (ICD -10 - K62.5) 03/09/2025 Abnormal ultrasound (ICD-10 - R93.89) 06/24/2024 Pure hypercholesterolemia (ICD-10 - E78.00) 07/01/2024 [...] 03/05/2018 HEPATITIS A,B,C PROFILE 02/23/2025 CT ABD WITH CONTRAST 03/09/2025 CT ABD & PELVIS WITH IV CONT ONLY 2022 CT ABD & PELVIS WWO CONTRAST 11/21/2022 US ABD 12/29/2024 Stress Test 11/18/2024 ECHO 04/15/2024 US abdomen limited 06/05/2022 Future Test Test Name Order Date US abdomen limited 01/04/2023 Liver Panel 03/02/2025 Next Appt Details Provider Name:Vini herzog, 06/29/2025 07:45:00 AM, [address] [place] [address], [address], [place], [place], [id number], Provider Name:Vini herzog, 07/06/2025 09:30:00 AM, [address], [address], [place], [place], [id number], Insurance Providers Payer Name Payer Address Payer Phone Subscriber Number Group Number Insured Name Patient Relationship to Insured Coverage Start Date Coverage End Date [employer] MED[employer]ARE ADVANTAGE [address] [place], [place] [id number] Deacon Romo Self - patient is the insured [facility] [employer] [address] [place] [address] [phone] [id number] Deacon Romo Self - patient is the insured MEDICARE [employer] [address] [place] [id number] Deacon Romo Self - patient is the insured Medical (General) History Medical History History ICD Code colonoscopy 07/2014 repeat in 3 years; colonoscopy 01/02/16 w/ Dr. Butt; colonoscopy done 02/11/[address] Butt, no futher testing needed.01/26/24 Colonoscopy, pending biopsy01/10/25 colonoscopy pending path
--- OUTSIDE RECORDS SUMMARY | 2025-05-08 07:21 | XMS_ITS | Clinical Summary ---
Author Organization [facility] Address [address] [address] Phone Care Team Providers Care Gerentological Physiotherapist Name Role Phone Pcp, Unknown Primary Care Provider Unavailabl e Social History Tobacco Use Types Packs/Day Years [...] this topic Medical Devices Not on file Insurance [facility] MEDICARE REPLACEMENT FOR LIFE MEDICARE SUPP[facility] [place] [place] Address: [address] [phone] [facility] MEDICARE REPLACEMENT FOR LIFE MEDICARE SUPPLEMENT [facility] [employer] MEDICARE [facility] [place] [place] Address: [address] [phone] [facility] [employer] MEDICARE [facility]MENT [facility] [place] [place] Address: [address] [phone] [facility]PLAC[facility] [employer] MEDICARE SU[facility]MENT [facility] [place] [place] Address: [address] [phone] [employer] MEDICARE REPLACEMENT FOR LIFE MEDICARE SUPPLEMENT Care Teams Gerentological Physiotherapist Relationship Specialty Start Date End Date Pcp, Unknown PCP - General 12/21/24 Additional Source Comments The information contained in this document represents components of the legal health record. It is not the complete legal health record.[facility]
[2025-05-08] MEDS: iohexoL 350 MG/ML 100 ML INFUS..BTL IV (09:33)
[2025-05-08] MEDS: Barium Sulfate Oral (Berry) 450 ML ORAL.SUSP 900 ML PO (09:33)
== END 2025-05-08 07:17 | disposition home or self-care (01) ==
LOC: HO.CT 07:16
PROVIDERS: PCP Internal Medicine; Visit Provider Internal Medicine
DX: K76.89 Other specified diseases of liver (principal); R93.89 Abnormal findings on diagnostic imaging of other specified body structures
CPT/HCPCS: 74160; Q9967

== ENCOUNTER → 2025-05-08 07:24 | Outpatient (BNV) | payer MEDICARE, OTHER, SELFPAY | PROVIDERS: PCP Internal Medicine; Visit Provider Radiology Diagnostic Radiology | DX: I25.84 Coronary atherosclerosis due to calcified coronary lesion (principal) | CPT/HCPCS: 74160 ==